=== PATIENT | female | born 1960 | race Two or more races ===

== ENCOUNTER 2024-06-10 21:42 | Inpatient (IN) | payer OTHER, MEDICAID ==
[~2024-06-10] VITALS: Ht 160 cm; Wt 67.5 kg
[~2024-06-10 21:42] MED LIST: ASPI-325 PO; ATOR40TA52 PO; B-CO-6 PO; BACL10TA PO; CARV25TA55 PO; CLOP75TA70 PO; FURO40TA4 PO; GAB100C PO; HYDR100T10 PO; LOSA-535 PO; NIFE90TA75 PO; ZOFR4T PO
--- NOTE | 2024-06-10 22:38 | DVH ---
CHEST RADIOGRAPH Indication: hypoxia Technique: Single frontal view of the chest was obtained Comparison: None FINDINGS: There is cardiomegaly and pulmonary vascular congestion suggesting fluid overload and conge stive heart failure pattern there is a dialysis catheter with tip in the right atrium. IMPRESSION: 1. Dialysis catheter tip is in the right atrium. Patient has cardiomegaly and fluid overload
[2024-06-10 22:40] VITALS: PULSE 76; RESP 16; O2SAT 94
[2024-06-10 22:47] LABS: Basophils # (auto) 0 10 ^3/uL (0-0.2); Basophils % (auto) 0.5 % (0.0-2.0); Eosinophils # (auto) 0 10 ^3/uL (0-0.8); Eosinophils % (auto) 1.6 % (0.0-7.0); Hematocrit 32.7 % (36.0-46.0); Hemoglobin 10.7 g/dL (12.2-16.2); Lymphocytes # (auto) 0.6 10 ^3/uL (0.4-5.4); Lymphocytes % (auto) 24.9 % (10.0-50.0); Mean Corpuscular Hemoglobin 29.6 pg (28.0-32.0); Mean Corpuscular Hgb Conc. 32.8 g/dL (32.0-36.0); Mean Corpuscular Volume 90.3 fL (80.0-100.0); Monocytes # (auto) 0.2 10 ^3/uL (0-1.3); Monocytes % (auto) 7.8 % (0.0-12.0); Neutrophils # (auto) 1.5 10 ^3/uL (1.6-8.6); Neutrophils % (auto) 65.2 % (37.0-80.0); Nucleated Red Blood Cells % 0.2 %; Platelet Count (auto) 115 10^3/uL (140-450); Red Blood Cells 3.62 10^6/uL (4.0-5.20); Red Cell Distribution Width 16.4 % (11.8-14.3); White Blood Cell 2.2 10^3/uL (4.4-10.8)
--- NOTE | 2024-06-10 22:49 | DVH ---
EXAM: CT THORACIC SPINE WO CONTRAS HISTORY: pain COMPARISON: None CTDIvol mGy, DLP mGy*cm. TECHNIQUE: Multiple axial CT images of the spine were obtained using bone algorithm. Axial and coron al reformatting was done. Bone and soft tissue windows were reviewed. FINDINGS: The alignment of the thoracic spine is within normal limits. Bones appear osteopenic. No evidence of fracture in the thoracic spine. Mild degenerative disc disease without evidence of significant disc-osteophyte, spinal canal or neura l foraminal stenosis at any of the levels in the thoracic spine. Incidentally noted are ofkaa-gz-[id number]-sized bilateral pleural effusions tracking to the lung apice s and evidence of mild pulmonary edema. IMPRESSION: No evidence of fracture in the thoracic spine.
[2024-06-10] MEDS: ONDANSETRON HCL 4 MG/2 ML VIAL IV ONE (22:51)
[2024-06-10] MEDS: hydrALAZINE HCL 20 MG/ML VL IV ONE (22:51)
[2024-06-10] MEDS: MORPHINE SULFATE 4 MG/ML SYR/VIAL IV ONE (22:51)
--- NOTE | 2024-06-10 22:53 | DVH ---
EXAM: CT HEAD WITHOUT CONTRAST INDICATION: aloc TECHNIQUE: CT of the head without intravenous contrast. Radiation Dose : 1. Head: CT Dose: CTDI volume is 52.9 mGy. Dose-length product is 3950.78 mGy*cm The dose indicators for CT are the volume Computed Tomography (CT) Dose Index (CTDIvol) and the Dose Length Product (DLP), and are measured in units of mGy and mGy-cm, respectively. These indicators are not patient dose, but values generated from the CT scanner acquisition factors. The report includes radiation exposure data for exposures received during this examination. COMPARISON: None FINDINGS: There is a mild generalized cortical atrophy and there is evidence for stroke involving the posterior left frontal lobe May also involve the left sylvian fissure. In the left anterior watershed Patient has hyperostosis frontalis internus which is common finding in adult women. Paranasal sinuses are generally clear mastoid air cells are unremarkable calvarium is intact. Hippocampal structures a re symmetric there are calcifications in the vertebral arteries bilaterally. Midline structures are g enerally unremarkable. Including the pituitary. Follow-up MRI examination is suggested IMPRESSION: 1. Subacute stroke involving the left frontal lobe white matter which also may involve the left tempo ral lobe as well can not rule out acute features. The emergency room and Dr. Ankita Fagan or told the se findings at 10:48 p.m. On June 10 2024
[2024-06-10] MEDS: ALBUTEROL SULF 2.5 MG/0.5ML(0.5%) NEB SOLN NEB ONE (22:59)
[2024-06-10] MEDS: IPRATROPIUM BROM 0.5 MG/2.5ML INH SOL NEB ONE (22:59)
[2024-06-10 23:03] LABS: Alanine Aminotransferase 11 U/L (7-40); Albumin 4.4 g/dL (3.2-4.8); Anion Gap 13 (5-15); Aspartate Aminotransferase 23 U/L (13-40); BUN/Creatinine Ratio 5.4 (10.0-20.0); Calcium 10.3 mg/dL (8.7-10.4); Carbon Dioxide 24 mmol/L (20-31); Chloride 99 mmol/L (98-107); Glucose 78 mg/dL (74-106); Potassium 3.8 mmol/L (3.5-5.1); Total Protein 7.2 g/dL (5.7-8.2)
[2024-06-10 23:04] LABS: Alkaline Phosphatase 120 U/L (46-116); Bilirubin, Total 0.4 mg/dL (0.2-1.0); Blood Urea Nitrogen 26 mg/dL (9-23); Sodium 136 mmol/L (136-145)
--- NOTE | 2024-06-10 23:10 | DVH ---
CT LS SPINE WO CONTRAST INDICATION: pain : 63 old Female pain EXAM DATE: 06/10/2024 10:07 PM COMPARISON: None RADIATION DOSE: CTDIvol: 30 mGy, DLP: 980 mGy*cm PROCEDURE: Utilizing the CT scanner, contiguous axial scans were obtained through the lumbar spine. C oronal and sagittal reformatted images were then generated. All CT scans at this medical facility are performed using dose modulation techniques as appropriate t o a performed exam including the following: Automated exposure control was utilized; adjustment of th e MA and/or KV according to patient size; and use of iterative reconstruction technique. Findings/ IMPRESSION: No acute fracture. Grade 1 anterolisthesis at L4-L5 with bilateral pars defects. Moderate to severe e ndplate degenerative changes at L4-L5, T12-L1, and L5-S1. There is severe spinal canal narrowing at L 4-L5. Partially visualized moderate bilateral pleural effusions. Mild diffuse anasarca.
--- NOTE | 2024-06-10 23:20 | ED.PDOC ---
History of Present Illness HPI Comments 63-year-old female brought in by independent living facility care staff for evaluation of back pain. Per care staff, the patient was admitted at [facility] 3 weeks ago for a spinal fracture. The patient herself is currently exhibiting altered mental status, which the care staff states is not her normal baseline. She is oriented x4 at baseline according to staff, who states she was at her baseline mental status 2 hours ago. The patient is able to localize the back pain, which is in the mid to lower thoracic and upper lumbar areas. She is otherwise unable to answer questions in detail, sometimes able to answer yes or no. Care staff stated they did not bring her medical history information. Chief Complaint: Back Pain Time Seen by MD: 21:50 Allergies: Coded Allergies: NO KNOWN ALLERGIES (Unverified , 06/10/24) Mode of Arrival: Wheelchair Past Medical History PAST MEDICAL HISTORY: Unobtainable Past Medical History (Other): End-stage renal disease on dialysis, on home oxygen at night Surgical History (Other): Includes right chest hemodialysis catheter [employer] DIRECTOR History: Unknown Family History Family History: Unobtainable Social History Smoker: Unobtainable Alcohol: Unobtainable Drugs: Unobtainable Lives In: Assisted Care Unable to Obtain due to: Altered Mental Status Physical Exam General Appearance: Mild Distress HEENT: PERRL/EOMI, Other (No facial asymmetry. Moist mucous membranes.) Neck: Full Range of Motion, Non-Tender, Normal Inspection, Supple Respiratory: Decreased Breath Sounds, No Accessory Muscle Use, Respiratory Distress (Mild) Cardiovascular: No JVD, Regular Rate/Rhythm Breast Exam: Deferred Gastrointestinal: Non Tender, Soft Genitalia: Deferred Pelvic: Deferred Rectal: Deferred Extremities: Leg edema, Pedal edema, Swelling (Right greater than left leg and pedal edema) Neurologic: Alert (Does not cooperate with neuro exam. Moves all extremities.) Cerebellar Function: Unable to Test Reflexes: NOT DONE Skin: Dry, Pallor, Warm Lymphatic: NOT DONE Was a procedure done? 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 medical staff (internal medicine resident physician) Indication: Other (intubated, sedated, CVA requiring multiple IV meds) Room prepared for procedure: Yes Corner Former performed hand hygien: Yes Maximal sterile barrier precau: Mask/Eye shield, Sterile gown, Cap, Sterlie gloves, Large sterlie drape Skin Preparation: Chlorhexidine gluconate Skin preparation completely dr: Yes Insertion site: Left, Internal jugular Central line catheter type: [id number] dialysis Number of lumens: 3 Central line exchanged over a: Yes Antiseptic ointment applied to: No Post Assessment: Chest X-Ray, Proper placement Informed consent obtained: No Risks/benefits/alt described: No Notes pt with altered mental status and cva, unable to consent, procedure was emergent Intubation Indication: Altered Mental Status, Airway Protection Prep: Preoxygenation Pretreated with: Sedation, Other (etomidate) Medicated with: Other (rocuronium) Intubation Approach: Orotracheal Intubation size: cm (8) Informed consent obtained: No Risks/benefits/alt described: No Notes pt altered mental status, unable to consent, procedure was emergent Procedure performed by Internal Medicine resident physician. under my direct supervision. EKG EKG : Comments Sinus rhythm, rate 79, normal intervals, left axis deviation, normal QRS, nonspecific T changes. Differential Dx Considerations may include: Pain due to recent fracture, other musculoskeletal pain/muscle spasm, neuropathic pain, CVA, TIA, intracranial mass lesion, infection such as UTI, dementia, electrolyte imbalance, hypoglycemia, uremia, renal failure, drug/alcohol intoxication, hepatic encephalopathy, metabolic encephalopathy, hypertensive encephalopathy, among others X-Ray, Labs, Meds, VS Vital Signs Date Time Temp Pulse Resp B/P (MAP) Pulse Ox O2 Delivery O2 Flow Rate FiO2 06/11/24 01:45 98.2 60 14 170/63 (98) 98 98.2 06/11/24 01:30 98.2 61 17 175/61 (99) 96 98.2 06/11/24 01:11 209/80 06/11/24 00:48 71 223/91 06/11/24 00:44 72 224/94 06/11/24 00:42 224/94 06/11/24 00:10 77 17 215/81 (125) 93 06/10/24 23:54 72 06/10/24 23:44 83 233/91 06/10/24 23:43 233/91 06/10/24 23:42 239/91 06/10/24 23:21 69 25 221/83 06/10/24 23:07 77 17 207/75 (119) 96 06/10/24 23:06 79 06/10/24 22:51 241/82 06/10/24 22:51 11 11 214/82 06/10/24 22:50 24 93 Nasal Cannula* 3 32 06/10/24 22:40 76 16 94 Nasal Cannula* 5 40 06/10/24 22:40 98.2 76 16 241/82 (134) 94 98.2 06/10/24 21:55 88 Room Air* 0 21 06/10/24 21:55 98.3 84 24 216/115 (148) 88 98.3 Lab Test 06/11/24 00:09 06/10/24 23:30 06/10/24 23:02 06/10/24 22:36 Range/Units POC Glucose 79 70-106 mg/dl Troponin I High Sensitivity 18 17 </=34 ng/L Lactic Acid Level 0.7 0.4-2.0 mmol/L Ammonia 22 11-32 umol/L Plasma/Serum Blood Alcohol < 3.0 <10 mg/dL White Blood Count 2.2 L 4.4-10.8 10^3/uL Red Blood Count 3.62 L 4.0-5.20 10^6/uL Hemoglobin 10.7 L 12.2-16.2 g/dL Hematocrit 32.7 L 36.0-46.0 % Mean Corpuscular Volume 90.3 80.0-100.0 fL Mean Corpuscular Hemoglobin 29.6 28.0-32.0 pg Mean Corpuscular Hemoglobin Concent 32.8 32.0-36.0 g/dL Red Cell Distribution Width 16.4 H 11.8-14.3 % Platelet Count 115 L 140-450 10^3/uL Mean Platelet Volume 7.7 6.9-10.8 fL Neutrophils (%) (Auto) 65.2 37.0-80.0 % Lymphocytes (%) (Auto) 24.9 10.0-50.0 % Monocytes (%) (Auto) 7.8 0.0-12.0 % Eosinophils (%) (Auto) 1.6 0.0-7.0 % Basophils (%) (Auto) 0.5 0.0-2.0 % Neutrophils # (Auto) 1.5 L 1.6-8.6 10 ^3/uL Lymphocytes # (Auto) 0.6 0.4-5.4 10 ^3/uL Monocytes # (Auto) 0.2 0-1.3 10 ^3/uL Eosinophils # (Auto) 0 0-0.8 10 ^3/uL Basophils # (Auto) 0 0-0.2 10 ^3/uL Nucleated Red Blood Cells 0.2 % Sodium Level 136 136-145 mmol/L Potassium Level 3.8 3.5-5.1 mmol/L Chloride Level 99 98-107 mmol/L Carbon Dioxide Level 24 20-31 mmol/L Anion Gap 13 5-15 Blood Urea Nitrogen 26 H 9-23 mg/dL Creatinine 4.84 H 0.550-1.02 mg/dL Glomerular Filtration Rate Calc 9 >90 mL/min BUN/Creatinine Ratio 5.4 L 10.0-20.0 Serum Glucose 78 74-106 mg/dL Calcium Level 10.3 8.7-10.4 mg/dL Total Bilirubin 0.4 0.2-1.0 mg/dL Aspartate Amino Transferase (AST) 23 13-40 U/L Alanine Aminotransferase (ALT) 11 7-40 U/L Alkaline Phosphatase 120 H 46-116 U/L B-Type Natriuretic Peptide 1515.73 0-100 pg/mL Total Protein 7.2 5.7-8.2 g/dL Albumin 4.4 3.2-4.8 g/dL Current Medications Medications (Trade) Dose Ordered Sig/Eric Route Start Time Stop Time Status Last Admin Morphine Sulfate 4 mg ONCE ONCE IV 06/10/24 22:00 06/10/24 22:03 DC 06/10/24 22:51 Ondansetron HCl (Zofran) 4 mg ONCE ONCE IV 06/10/24 22:00 06/10/24 22:03 DC 06/10/24 22:51 Albuterol (Ventolin Medneb) 5 mg ONCE ONCE NEB 06/10/24 22:00 06/10/24 22:03 DC 06/10/24 22:59 Ipratropium [place] (Atrovent Medneb) 0.5 mg ONCE ONCE NEB 06/10/24 22:00 06/10/24 22:03 DC 06/10/24 22:59 Hydralazine HCl (Apresoline Injection) 10 mg ONCE ONCE IV 06/10/24 22:00 06/10/24 22:03 DC 06/10/24 22:51 Labetalol HCl (Labetalol HCl) 10 mg ONCE ONCE IV 06/10/24 23:30 06/10/24 23:31 DC 06/10/24 23:44 Aspirin 325 mg ONCE ONCE PO 06/10/24 23:30 06/10/24 23:31 DC 06/11/24 00:19 Nitroglycerin (Nitro-Bid) 1 pkg ONCE ONCE TD 06/10/24 23:30 06/10/24 23:32 DC 06/10/24 23:42 Furosemide (Lasix Injection) 60 mg ONCE ONCE IV 06/10/24 23:30 06/10/24 23:32 DC 06/10/24 23:43 Hydralazine HCl (Apresoline Injection) 20 mg ONCE ONCE IV 06/11/24 00:30 06/11/24 00:31 DC 06/11/24 01:11 Labetalol HCl (Labetalol HCl) 20 mg ONCE ONCE IV 06/11/24 00:30 06/11/24 00:31 DC 06/11/24 00:48 PROCEDURE(s): HWOCT - HEAD WITHOUT CONTRAST REASON: aloc ORDER NUMBER(s): [id number], ACCESSION NUMBER(s): [id number] EXAM: CT HEAD WITHOUT CONTRAST INDICATION: aloc TECHNIQUE: CT of the head without intravenous contrast. Radiation Dose : 1. Head: CT Dose: CTDI volume is 52.9 mGy. Dose-length product is 3950.78 mGy*cm The dose indicators for CT are the volume Computed Tomography (CT) Dose Index (CTDIvol) and the Dose Length Product (DLP), and are measured in units of mGy and mGy-cm, respectively. These indicators are not patient dose, but values generated from the CT scanner acquisition factors. The report includes radiation exposure data for exposures received during this examination. COMPARISON: None FINDINGS: There is a mild generalized cortical atrophy and there is evidence for stroke involving the posterior left frontal lobe May also involve the left sylvian fissure. In the left anterior watershed Patient has hyperostosis frontalis internus which is common finding in adult women. Paranasal sinuses are generally clear mastoid air cells are unremarkable calvarium is intact. Hippocampal structures are symmetric there are calcifications in the vertebral arteries bilaterally. Midline structures are generally unremarkable. Including the pituitary. Follow-up MRI examination is suggested IMPRESSION: 1. Subacute stroke involving the left frontal lobe white matter which also may involve the left temporal lobe as well can not rule out acute features. The emergency room and Dr. Ankita Fagan or told these findings at 10:48 p.m. On June 10 2024 EDURE(s): [place] - ANGIO HEAD/Neck REASON: L frontal CVA ORDER NUMBER(s): [id number], ACCESSION NUMBER(s): [id number] CT ANGIO HEAD/Neck INDICATION: L frontal CVA EXAM DATE: 06/10/2024 11:58 PM COMPARISON: None RADIATION DOSE: CTDIvol: 23.29 mGy, DLP: 732.49 mGy*cm PROCEDURE: CT angiogram images were obtained of the head and neck. Coronal and sagittal reformatted images were created as well as 3D and/or MIP reconstruction s. All CT scans at this medical facility are performed using dose modulation techniques as appropriate to a performed exam including the following: Automated exposure control was utilized; adjustment of the MA and/or KV according to patient size; and use of iterative reconstruction technique. FINDINGS: Head: On the CT angiographic images, the internal carotid arteries are normal in caliber from the skull base to their bifurcations. The anterior and middle cerebral arteries and their branches appear normal. The anterior communicating artery appears normal. The bilateral posterior communicating arteries are normal. The vertebral arteries are codominant. The V4 segment of the bilateral vertebral arteries appear to demonstrate intraluminal narrowing measuring up to approximately 50 % due to calcified and noncalcified plaques. The basilar, superior cerebellar, and posterior cerebral arteries are normal in caliber. No aneurysm, arteriovenous malformation, or stenosis is visible. Neck: The common carotid, internal carotid, external carotid, and vertebral arteries are normal in caliber. The vertebral arteries are codominant. The visualized intracranial arteries are normal. There is no evidence of contrast extravasation, filling defects, stenosis, or dissection. The pharynx and airway are normal. The thyroid, submandibular, and parotid glands appear normal. No lymphadenopathy is seen. The visualized intracranial structures are unremarkable. Partially visualized biapical lungs demonstrates small left-sided pleural effusion. IMPRESSION: No significant vascular stenosis involving the head / neck. Moderate occlusion of the bilateral V4 segments vertebral arteries due to calcified and noncalcified plaques. EDURE(s): TS2CT - THORACIC SPINE WO CONTRAS REASON: pain ORDER NUMBER(s): [id number], ACCESSION NUMBER(s): [id number] EXAM: CT THORACIC SPINE WO CONTRAS HISTORY: pain COMPARISON: None CTDIvol mGy, DLP mGy*cm. TECHNIQUE: Multiple axial CT images of the spine were obtained using bone algorithm. Axial and coronal reformatting was done. Bone and soft tissue windows were reviewed. FINDINGS: The alignment of the thoracic spine is within normal limits. Bones appear osteopenic. No evidence of fracture in the thoracic spine. Mild degenerative disc disease without evidence of significant disc-osteophyte, spinal canal or neural foraminal stenosis at any of the levels in the thoracic spine. Incidentally noted are gsuxt-hp-epgppovf-sized bilateral pleural effusions tracking to the lung apices and evidence of mild pulmonary edema. IMPRESSION: No evidence of fracture in the thoracic spine. EDURE(s): LS2CT - LS SPINE WO CONTRAST REASON: pain ORDER NUMBER(s): [id number], ACCESSION NUMBER(s): [id number] CT LS SPINE WO CONTRAST INDICATION: pain : 63 old Female pain EXAM DATE: 06/10/2024 10:07 PM COMPARISON: None RADIATION DOSE: CTDIvol: 30 mGy, DLP: 980 mGy*cm PROCEDURE: Utilizing the CT scanner, contiguous axial scans were obtained through the lumbar spine. Coronal and sagittal reformatted images were then generated. All CT scans at this medical facility are performed using dose modulation techniques as appropriate to a performed exam including the following: Automated exposure control was utilized; adjustment of the MA and/or KV according to patient size; and use of iterative reconstruction technique. Findings/ IMPRESSION: No acute fracture. Grade 1 anterolisthesis at L4-L5 with bilateral pars defects. Moderate to severe endplate degenerative changes at L4-L5, T12-L1, and L5-S1. There is severe spinal canal narrowing at L4-L5. Partially visualized moderate bilateral pleural effusions. Mild diffuse gurpreet sarca. EDURE(s): CXRP - CHEST PORTABLE REASON: hypoxia ORDER NUMBER(s): [id number], ACCESSION NUMBER(s): [id number] CHEST RADIOGRAPH Indication: hypoxia Technique: Single frontal view of the chest was obtained Comparison: None FINDINGS: There is cardiomegaly and pulmonary vascular congestion suggesting fluid overload and congestive heart failure pattern there is a dialysis catheter with tip in the right atrium. IMPRESSION: 1. Dialysis catheter tip is in the right atrium. Patient has cardiomegaly and fluid overload X-Ray, Labs, Meds, VS Comment 63-year-old female with a history of spine fracture, end-stage renal disease and on home oxygen presenting with back pain and altered mental status Vitals remarkable for BP 216/115, oxygen saturation 88% on room air, respiratory rate 24 Exam remarkable for altered mental status. Respiratory distress, diminished breath sounds. Patient moving all extremities. Midline tenderness in the mid and lower thoracic and upper lumbar areas. Rhythm strip independently interpreted by me: Sinus rhythm, rate 79, no ectopy. CT head IMPRESSION: 1. Subacute stroke involving the left frontal lobe white matter which also may involve the left temporal lobe as well can not rule out acute features. The emergency room and Dr. Ankita Fagan or told these findings at 10:48 p.m. On June [address] angio head and neck IMPRESSION: No significant vascular stenosis involving the head / neck. Moderate occlusion of the bilateral V4 segments vertebral arteries due to calcified and noncalcified plaques. T-spine IMPRESSION: No evidence of fracture in the thoracic spine. CT L-spine IMPRESSION: No acute fracture. Grade 1 anterolisthesis at L4-L5 with bilateral pars defects. Moderate to severe endplate degenerative changes at L4-L5, T12-L1, and L5-S1. There is severe spinal canal narrowing at L4-L5. Partially visualized moderate bilateral pleural effusions. Mild diffuse anasarca. Chest x-ray IMPRESSION: 1. Dialysis catheter tip is in the right atrium. Patient has cardiomegaly and fluid overload CBC remarkable for WBC 2.2, hemoglobin 10.7, hematocrit 32.7, platelets 115, CMP, BNP and troponin Patient treated with the following in the ED: Albuterol 5 mg, Atrovent 0.5 mg nebulized, morphine 4 mg IV, Zofran 4 mg IV, h ydralazine 10 mg IV, aspirin 325 mg p.o., labetalol 10 mg IV, Nitro-Bid 1 in to chest wall, Lasix 60 mg IV Code stroke was initiated upon my receipt of the CT findings from the radiologist. I discussed the case with the on-call stroke neurologist, who evaluated the patient via video consultation. Recommendations: Patient is not a thrombolytic candidate. CTA head and neck were recommended. If no occlusion, p.o. aspirin to be administered, and patient to be admitted for brain MRI and inpatient Neurology re-evaluation. On re-evaluation, patient is sleeping but arousable, BP is 214/82, so IV labetalol was ordered. Plan is to admit the patient for brain MRI, blood pressure control and inpatient Neurology evaluation. Patient will also require hemodialysis. Case discussed with FASHION [employer]YLING INTERN Jose, who evaluated the patient in the ED. He requested the patient be intubated for airway protection, as her mental status was declining and she was appearing more lethargic. He will admit the patient. Patient was intubated by internal medicine resident under my direct supervision. Please see procedure note for details. A left IJ central venous catheter was inserted by internal medicine resident under my direct supervision. Please see procedure note for details. Time of 1ST Reevaluation: 23:24 Reevaluation 1ST: Improved Time of 2ND Reevaluation: 02:00 Reevaluation 2ND: Worsened Patient Education/Counseling: Pt Unresponsive Family Education/Counseling: No Family Present Departure 1 Departure Time of Disposition: 23:23 Impression: Primary Impression: CVA (cerebral vascular accident) Qualified Codes: I63.9 - Cerebral infarction, unspecified Additional Impressions: Back pain Qualified Codes: M54.9 - Dorsalgia, unspecified Fluid overload Qualified Codes: E87.70 - Fluid overload, unspecified Disposition: 09 ADMITTED INPATIENT Admit to: ICU Condition: Critical Critical Care Note Critical Care Time?: Yes (45 min-critical care time only) Critical care comment: Critical care time including multiple bedside re-evaluations, review of lab and imaging studies, and discussion of the case with the admitting and consulting providers. Patient is high risk for hemodynamic and/or neurologic decompensation. Stability Stability form required: No Heart Score Heart Score: Heart Score Response (Comments) Value History N/A 0 EKG N/A 0 Age N/A 0 Risk Factors N/A 0 Troponin N/A 0 Total 0 CHRISTINA SHEEHAN MD Jun 10, 2024 23:20
--- NOTE | 2024-06-10 23:22 | BSKYNEURO ---
[place] [facility] Note # Demographics Consult Type: Acute Stroke Level 1 (0-4.5 hrs) Patient Location: Emergency Room First Name: LILI Last Name: HARPAL Date of : 1960 Age: 63 Gender: Female Facility: [facility] Time of Initial Page (): 06/10/2024 22:57 Time of Return Call (): 06/10/2024 22:57 # HPI History: Spine fracture three weeks ago. WHile in ED noted to be confused and having right leg weakness. Not clear last known well time. Last Known Normal: unclear # Scores Time of exam and NIHSS (): 06/10/2024 23:08 Level of Consciousness 1a: [1] = Not alert; but arousable by minor stim LOC Questions 1b: [1] = Answers one correctly LOC Commands 1c: [1] = Performs one correctly Best Gaze 2: [0] = Normal Visual 3: [0] = No visual loss Facial Palsy 4: [0] = Normal symmetrical movements Motor Arm Left 5a: [0] = No drift Motor Arm Right 5b: [0] = No drift Motor Leg Left 6a: [2] = Some effort against gravity Motor Leg Right 6b: [3] = No effort against gravity Limb Ataxia 7: [0] = Absent Sensory 8: [0] = Normal Best Language 9: [2] = Severe aphasia Dysarthria 10: [0] = Normal Extinction and Inattention 11: [0] = No abnormality NIHSS Total: 10 # Exam Vitals: vital signs reviewed # Data Head CT: - per radiologist read - subacute ischemic stroke - no bleed - preliminarily reviewed by me, please refer to radiology read for official reading left frontal stroke. # Assessment Impression: - Ischemic Stroke (Subacute) The imaging features of stroke are not suggetsive of stroke within last 4.5 hours. # Plan Thrombolytic/Intervention: Possible IA candidate Thrombolytic Exclusion: > 4.5 hours Possible IA Candidate: - CTA pending Target Blood Pressure: - SBP < 220 sbp< 180 if cta negative Labs: - hemoglobin A1c - lipid panel Imaging: (urgency: STAT): - CT Angiogram Head and CT Angiogram Neck AND call back with results if abnormal Diagnostic Test: - echo with bubble study Therapy/Evaluation: - NPO until swallow evaluation - PT/OT evaluation - speech/swallow consultation Medication: - start statin with goal of LDL < 70 asa 325 today Other: - If patient has any neurological deterioration please call me back immediately - I have discussed my recommendations with the referring provider - telemetry monitoring - LDL < 70 Disposition: admit # Logistics Attestation of consult completion: The patient is located at: [facility]. Facility staff participated in the visit. I performed this telemedicine visit from my offsite office utilizing interactive 2 way audio and visual telecommunication technology. Total time spent in telemedicine encounter: I spent 21 minutes reviewing clinical data and/or imaging, obtaining history, examining the patient, communicating with the onsite care team, and in preparation of this report. Critical Care time: 21 minutes of this encounter were critical care time. Due to a high probability of clinically significant, life-threatening neurologic deterioration, the patient required my highest level of preparedness to intervene emergently. I spent this critical care time managing the patient in conjunction with on-site providers who requested my consultation. In addition to the above, this critical care time included recommendation and review of studies, including imaging; arranging an urgent treatment and management plan with on-site providers; evaluation of patient's response to treatment; and documentation. This critical care time was performed to assess and manage the high probability of imminent, life-threatening deterioration that could result in neurologic catastrophe. # Demographics First Name: LILI Last Name: HARPAL Facility: [facility] Electronically signed at 06/10/2024 23:22 ([place] Time) by Avinash Romo MD Yes RODRIGO ROMO MD Jun 10, 2024 23:22
[2024-06-10] MEDS: ASPirin 325 MG TAB PO ONE (23:42)
[2024-06-10] MEDS: NITROGLYCERIN 2% OINT 1GM PKG TD ONE (23:42)
[2024-06-10] MEDS: FUROSEMIDE 100 MG/10ML VIAL IV ONE (23:43)
[2024-06-10] MEDS: LABETALOL HCL 20 MG/4 ML VL IV ONE (23:44)
[2024-06-11] VITALS (82 sets, daily range): BP systolic 132–202; BP diastolic 47–178; PULSE 58–95; RESP 7–22; TEMP 97.2–100.4; O2SAT 92–100
[2024-06-11] MEDS: IOHEXOL 350 MG/ML 100ML IJ ONE (00:22)
--- NOTE | 2024-06-11 00:47 | DVH ---
CT ANGIO HEAD/Neck INDICATION: L frontal CVA EXAM DATE: 06/10/2024 11:58 PM COMPARISON: None RADIATION DOSE: CTDIvol: 23.29 mGy, DLP: 732.49 mGy*cm PROCEDURE: CT angiogram images were obtained of the head and neck. Coronal and sagittal reformatted i mages were created as well as 3D and/or MIP reconstructions. All CT scans at this medical facility are performed using dose modulation techniques as appropriate t o a performed exam including the following: Automated exposure control was utilized; adjustment of th e MA and/or KV according to patient size; and use of iterative reconstruction technique. FINDINGS: Head: On the CT angiographic images, the internal carotid arteries are normal in caliber from the skull bas e to their bifurcations. The anterior and middle cerebral arteries and their branches appear normal. The anterior communicating artery appears normal. The bilateral posterior communicating arteries are normal. The vertebral arteries are codominant. The V4 segment of the bilateral vertebral arteries katt ear to demonstrate intraluminal narrowing measuring up to approximately 50 % due to calcified and non calcified plaques. The basilar, superior cerebellar, and posterior cerebral arteries are normal in c aliber. No aneurysm, arteriovenous malformation, or stenosis is visible. Neck: The common carotid, internal carotid, external carotid, and vertebral arteries are normal in caliber. The vertebral arteries are codominant. The visualized intracranial arteries are normal. There is no evidence of contrast extravasation, filling defects, stenosis, or dissection. The pharynx and airway are normal. The thyroid, submandibular, and parotid glands appear normal. No l ymphadenopathy is seen. The visualized intracranial structures are unremarkable. Partially visualized biapical lungs demonstrates small left-sided pleural effusion. IMPRESSION: No significant vascular stenosis involving the head / neck. Moderate occlusion of the bilateral V4 se gments vertebral arteries due to calcified and noncalcified plaques.
[2024-06-11] MEDS: LABETALOL HCL 20 MG/4 ML VL IV ONE (00:48)
[2024-06-11] MEDS: hydrALAZINE HCL 20 MG/ML VL IV ONE (01:11)
[2024-06-11] MEDS: ETOMIDATE (2MG/ML) 20ML VIAL IV ONE ×2 (01:57→01:59)
[2024-06-11] MEDS: ROCURONIUM 10MG/ML 10ML VIAL IV ONE ×2 (01:57→01:59)
[2024-06-11] MEDS ORDERED: fentaNYL Drip 2500mCg/250mlNS 250 ML IV SCH (02:00)
[2024-06-11] MEDS ORDERED: MORPHINE SULFATE INJ 2 MG/ml SYRG IV PRN (02:00)
[2024-06-11] MEDS ORDERED: LABETALOL HCL 20 MG/4 ML VL IV PRN (02:00)
[2024-06-11] MEDS ORDERED: MIDAZOLAM DRIP 50 mg/50mL 50 ML IV SCH (02:00)
[2024-06-11] MEDS ORDERED: NITROGLYCERIN 0.4 MG SL TAB SL PRN (02:00)
[2024-06-11] MEDS: MIDAZOLAM DRIP 50 mg/50mL 50 ML IV SCH (02:10)
--- NOTE | 2024-06-11 02:27 | DVHHP2 ---
TRINA MOULTON ZIPPER SETTER 06/11/24 0227: History of Present Illness Reason for Visit: ALOC History of Present Illness Information in this HPI is limited due to the patient's critical condition. Acquired from ER physician and EHR. 63-year-old female with past medical history of ESRD on HD, hypertension, falls, T12 compression fracture was sent in from an assisted living facility with initial complaints of back pain. On arrival to the emergency department patient was found to be altered. Patient was not following commands. CT of the head was ordered per the emergency departm ent which demonstrated subacute frontal lobes stroke. CXR demonstrated fluid overload. During my evaluation at ER bed 17 patient was not arousable and her tongue was swollen and kept rolling back into her throat. After discussing these findings with the ER physician, the decision was made to intubate the patient for airway protection. Patient admitted for further evaluation and treatment. Cardiovascular: CHF, HTN Renal/: Chronic renal failure Past Social History Unable to complete due to critical condition Review of Systems Review of Systems Unable to complete due to critical condition Allergies: Coded Allergies: NO KNOWN ALLERGIES (Unverified , 06/10/24) Medications Current Medications Medications Dose Ordered Sig/Eric Route Start Time Stop Time Status Last Admin Dose Admin Ondansetron HCl 4 mg Q4HP PRN IV 06/11/24 02:00 Nitroglycerin 0.4 mg Q5MINP PRN SL 06/11/24 02:00 Morphine Sulfate 2 mg Q30M PRN IV 06/11/24 02:00 Labetalol HCl 10 mg Q4HPRN PRN IV 06/11/24 02:00 Aspirin 81 mg DAILY PO 06/11/24 10:00 Atorvastatin Calcium 40 mg HS PO 06/11/24 22:00 Albuterol 2.5 mg Q4HPRN PRN NEB 06/11/24 02:00 Ipratropium [place] 0.5 mg Q4HPRN PRN NEB 06/11/24 02:00 Midazolam HCl 50 ml @ 1 mls/hr Q24H IV 06/11/24 02:15 Fentanyl Citrate 250 ml @ 2.5 mls/hr Q24H IV 06/11/24 02:15 Exam Vital Signs Vital Signs Date Time Temp Pulse Resp B/P (MAP) Pulse Ox O2 Delivery O2 Flow Rate FiO2 06/11/24 02:01 100 Mechanical Ventilator 06/11/24 02:01 80 18 201/90 (127) 100 06/11/24 01:30 98.2 98.2 06/10/24 22:50 3 General Appearance: severe distress, Other (Altered, not arousable,) HEENT: Other (Tongue noted to be swollen rolling into the back of her throat) Respiratory: Other (Intubated on mechanical ventilator) Cardiovascular: Regular rate, Normal S1, Normal S2 Abdominal: Normal bowel sounds, Soft, No tenderness Extremities: Other (BLE pitting edema 3+) Skin: No rashes Neuro: Other (Altered non arousable) Psych/Mental Status: Other (Unable to assess) Labs/Xrays Labs Test 06/11/24 00:09 06/10/24 23:30 06/10/24 23:02 06/10/24 22:36 Range/Units POC Glucose 79 70-106 mg/dl Troponin I High Sensitivity 18 </=34 ng/L Lactic Acid Level 0.7 0.4-2.0 mmol/L Ammonia 22 11-32 umol/L Plasma/Serum Blood Alcohol < 3.0 <10 mg/dL White Blood Count 2.2 L 4.4-10.8 10^3/uL Red Blood Count 3.62 L 4.0-5.20 10^6/uL Hemoglobin 10.7 L 12.2-16.2 g/dL Hematocrit 32.7 L 36.0-46.0 % Mean Corpuscular Volume 90.3 80.0-100.0 fL Mean Corpuscular Hemoglobin 29.6 28.0-32.0 pg Mean Corpuscular Hemoglobin Concent 32.8 32.0-36.0 g/dL Red Cell Distribution Width 16.4 H 11.8-14.3 % Platelet Count 115 L 140-450 10^3/uL Mean Platelet Volume 7.7 6.9-10.8 fL Neutrophils (%) (Auto) 65.2 37.0-80.0 % Lymphocytes (%) (Auto) 24.9 10.0-50.0 % Monocytes (%) (Auto) 7.8 0.0-12.0 % Eosinophils (%) (Auto) 1.6 0.0-7.0 % Basophils (%) (Auto) 0.5 0.0-2.0 % Neutrophils # (Auto) 1.5 L 1.6-8.6 10 ^3/uL Lymphocytes # (Auto) 0.6 0.4-5.4 10 ^3/uL Monocytes # (Auto) 0.2 0-1.3 10 ^3/uL Eosinophils # (Auto) 0 0-0.8 10 ^3/uL Basophils # (Auto) 0 0-0.2 10 ^3/uL Nucleated Red Blood Cells 0.2 % Sodium Level 136 136-145 mmol/L Potassium Level 3.8 3.5-5.1 mmol/L Chloride Level 99 98-107 mmol/L Carbon Dioxide Level 24 20-31 mmol/L Anion Gap 13 5-15 Blood Urea Nitrogen 26 H 9-23 mg/dL Creatinine 4.84 H 0.550-1.02 mg/dL Glomerular Filtration Rate Calc 9 >90 mL/min BUN/Creatinine Ratio 5.4 L 10.0-20.0 Serum Glucose 78 74-106 mg/dL Calcium Level 10.3 8.7-10.4 mg/dL Total Bilirubin 0.4 0.2-1.0 mg/dL Aspartate Amino Transferase (AST) 23 13-40 U/L Alanine Aminotransferase (ALT) 11 7-40 U/L Alkaline Phosphatase 120 H 46-116 U/L B-Type Natriuretic Peptide 1515.73 0-100 pg/mL Total Protein 7.2 5.7-8.2 g/dL Albumin 4.4 3.2-4.8 g/dL Assessment/Plan Assessment/Plan Acute CVA Acute encephalopathy S/P intubation on mechanical ventilator ESRD on HD Fluid overload Hypertensive emergency Hx T12 compression fracture Plan Admit ICU Neurology consult. MRI brain. Aspirin, statin. Lipid panel, A1c. Will allow for permissive hypertension. Cardiology consult. Echocardiogram. As needed antihypertensive for optimal BP management Nephrology consult for hemodialysis. Will monitor BMP. Correct electrolytes as needed. Pulmonology consult for vent management. Bronchodilators. 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 01:54 Maintain Bed Rest [facility] 06/11/24 In Process 01:54 Npo (Nothing By DIET 06/11/24 Transmitted Mouth) Diet Breakfast Oxygen By Face Mask RT 06/11/24 Transmitted 01:54 Notify Of Changes [facility] 06/11/24 In Process From Base 01:54 Advance Directive [facility] 06/11/24 In Process 01:54 Echo 2d Mode Cardiac US 06/11/24 Logged DOP 01:54 Basic Metabolic Panel LAB 06/11/24 Logged 05:00 Basic Metabolic Panel LAB 06/12/24 Verified 05:00 Basic Metabolic Panel LAB 06/13/24 Verified 05:00 Basic Metabolic Panel LAB 06/14/24 Verified 05:00 Basic Metabolic Panel LAB 06/15/24 Verified 05:00 Basic Metabolic Panel LAB 06/16/24 Verified 05:00 Complete Blood Count LAB 06/11/24 Logged 05:00 Complete Blood Count LAB 06/12/24 Verified 05:00 Complete Blood Count LAB 06/13/24 Verified 05:00 Complete Blood Count LAB 06/14/24 Verified 05:00 Complete Blood Count LAB 06/15/24 Verified 05:00 Patient Condition ORDERS 06/11/24 Transmitted 01:54 Allergies ROSSI 06/11/24 In Process 01:54 Ondansetron Hcl PHA 06/11/24 In Process (Zofran) 02:00 Sequential [facility] 06/11/24 In Process Compression Device Nitroglycerin PHA 06/11/24 In Process Sublingual (Ntrostat 02:00 Morphine Sulfate PHA 06/11/24 In Process Injection 02:00 Stat Ekg For Chest [facility] 06/11/24 In Process Pain 01:54 Notify Of Changes [facility] 06/11/24 In Process From Base 01:54 Principal Technologist For ROSSI 06/11/24 In Process 24 Hours 01:54 Emergency Dysrhythmia [facility] 06/11/24 In Process Protocol 01:54 Rhythm Strips Once [facility] 06/11/24 In Process Every Shift 01:54 Oxygen By Nasal RT 06/11/24 Transmitted Cannula 01:54 *Dr. Shanell Parekh CONS 06/11/24 Transmitted Barb 01:54 Brain Head Wo Contrast MRI 06/11/24 Logged 01:54 * Neurology Consult CONS 06/11/24 Transmitted 01:54 Labetalol Hcl PHA 06/11/24 In Process (Labetalol Hcl) 02:00 *Consult CONS 06/11/24 Transmitted / 01:54 Aspirin Tablet PHA 06/11/24 In Process 10:00 Atorvastatin (Lipitor) PHA 06/11/24 In Process 22:00 Albuterol Medneb PHA 06/11/24 In Process (Ventolin Medneb) 02:00 Ipratropium Medneb PHA 06/11/24 In Process (Atrovent Medneb) 02:00 Date of Service: Jun 11, 2024 Billing Provider: SHAQUILLE ROBBINS CDS Common Visit Codes: NOT BILLABLE BENJA ROBBINS MD 06/11/24 1240: Review of Systems Allergies: Coded Allergies: NO KNOWN ALLERGIES (Unverified , 06/10/24) Additional Comments Additional Comments Additional Comments To be noted patient was currently intubated and sedated. Most of the history obtained from the computer records has been as ER physician note. Also records from [facility] has been reviewed where patient was hospitalized for lumbar diskitis about three weeks ago was sent to custodial facility with the IV antibiotics vancomycin has been Infectious Disease recommendation from [facility]. There was no family member at bedside. 63-year-old female with a known history of hypertension, dyslipidemia, coronary artery disease, anxiety disorder, recent mechanical fall found to have acute small T12 compression fracture, L3-4 lumbar diskitis presented to the hospital with right-sided weakness altered mental status eventually intubated in the ER for airway protection. Patient was found to have acute/subacute left frontal and temporal infarct currently MRI brain is pending. 1. Acute hypoxic respiratory failure requiring intubation with mechanical ventilation secondary to metabolic encephalopathy 2. Metabolic encephalopathy secondary to acute CVA 3. Acute/subacute CVA with the left frontal and temporal infarct 4. Hypertensive emergency with the end-organ involvement 5. End-stage renal disease on hemodialysis 6. Coronary artery disease 7. L3-4 lumbar diskitis/osteomyelitis, resume IV vancomycin and consult infectious disease specialist -MRI brain noncontrast, neurology consultation -aspirin, Plavix and statin -hemodialysis per Nephrology -patient was remains critical prognosis remain guarded -Pulmonary consultation, plan of care discussed with the bedside RN. TRINA MOULTON NP Jun 11, 2024 02:27 BENJA ROBBINS MD Jun 11, 2024 12:40
[2024-06-11] MEDS: MIDAZOLAM DRIP 50 mg/50mL 50 ML IV ONE (02:34)
[2024-06-11] MEDS: fentaNYL Drip 2500mCg/250mlNS 250 ML IV SCH (03:27)
[2024-06-11 03:46] LABS: Urine Bacteria None Seen /hpf (None Seen)
[2024-06-11 04:00] LABS: Urine Blood Negative /uL (Negative); Urine Clarity Turbid (Clear); Urine Color Light-Yellow (Yellow); Urine Protein, UAD 3+ (Negative); Urine Specific Gravity 1.008 (1.001-1.035); Urine Squamous Epithelial Cell MOD /hpf (<5); Urine Urobilinogen Normal (Negative); Urine WBC 41 /HPF (0-5)
[2024-06-11 04:14] LABS: Base Excess 3.5 mmol/L (-2.0-3.0)
[2024-06-11 04:15] LABS: Opiate Scree,Urine Neg (NEGATIVE)
[2024-06-11 04:16] LABS: Amphetamine Screen, Urine Neg (NEGATIVE); Barbiturate Scree,Urine Neg (NEGATIVE); Benzodiazephine Screen, Urine Neg (NEGATIVE); Cannabinoid Screen, Urine Neg (NEGATIVE); Cocaine Screen, Urine Neg (NEGATIVE); Phencyclidine Screen, Urine Neg (NEGATIVE)
[2024-06-11] MEDS ORDERED: DEXTROSE (50%) 50ML SYRG IV PRN (04:45)
[2024-06-11 05:43] LABS: Hemoglobin 10.5 g/dL (12.2-16.2)
[2024-06-11 05:44] LABS: Potassium 3.5 mmol/L (3.5-5.1); Sodium 136 mmol/L (136-145)
[2024-06-11 05:45] LABS: Anion Gap 11 (5-15); Calcium 10.2 mg/dL (8.7-10.4); Carbon Dioxide 27 mmol/L (20-31)
[2024-06-11 05:46] LABS: Hematocrit 31.7 % (36.0-46.0); Mean Corpuscular Hemoglobin 29.4 pg (28.0-32.0); Mean Corpuscular Volume 89.3 fL (80.0-100.0); Platelet Count (auto) 114 10^3/uL (140-450); Red Blood Cells 3.55 10^6/uL (4.0-5.20); Red Cell Distribution Width 16.1 % (11.8-14.3)
[2024-06-11 05:50] LABS: Triglycerides 63 mg/dL (< 150)
[2024-06-11 05:51] LABS: LDL Cholesterol 47 mg/dL (< 100)
--- NOTE | 2024-06-11 05:51 | DVH ---
CHEST RADIOGRAPH Indication: Pots intubation and central line Technique: Single frontal view of the chest was obtained COMPARISON: XY CHEST PORTABLE on DOS: 06/10/24 FINDINGS: Lines and Tubes: Endotracheal tube, enteric catheter, right and left central venous catheter is in sa tisfactory position Lungs: Congestion Pleura: No effusion. No pneumothorax. Cardiomediastinal contours: Cardiomegaly Bones: Unremarkable IMPRESSION: Lines and tubes in satisfactory position. No significant interval change.
[2024-06-11 05:52] LABS: Cholesterol 106 mg/dL (< 200)
[2024-06-11] MEDS: ACCU-CHEK COMFORT CURVE STRIP VI SCH (05:53)
[2024-06-11] MEDS: InsuLIN REG 1unit/0.01ml Soln (100units/ml) SC SCH (05:53)
[2024-06-11 05:55] LABS: White Blood Cell 1.7 10^3/uL (4.4-10.8)
[2024-06-11 05:57] LABS: Basophils % (manual) 0 (0.0-2.0); Blast Cells 0; Metamyelocytes % 0; Myelocytes % 0; Promyelocytes % 0; Reactive Lymphocytes 0
--- NOTE | 2024-06-11 05:57 | ECG ---
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
[2024-06-11 06:01] LABS: Blood Urea Nitrogen 31 mg/dL (9-23); Chloride 98 mmol/L (98-107); Glucose 71 mg/dL (74-106); HDL Cholesterol 40 mg/dL (40-59)
[2024-06-11 06:55] LABS: Band Neutrophils % (manual) 2; Eosinophils % (manual) 3 (0-7); Large Platelets FEW; Lymphocytes % (manual) 21 (10.0-50.0); Monocytes % (manual) 9 (0-12); Platelet Estimate Decreased
[2024-06-11] MEDS: DEXTROSE 50% SYRINGE 50 ML IV ONE (07:40)
[2024-06-11] MEDS: HEPARIN SODIUM (PORCINE) 5000 UNITS/ML 1ML VIAL SC SCH (09:38)
[2024-06-11] MEDS: ASPirin 81 mg TAB PO SCH (09:58)
[2024-06-11] MEDS: PANTOPRAZOLE 40 MG/10 ML VIAL INJ IV SCH (09:58)
--- NOTE | 2024-06-11 10:11 | DVHINCON2 ---
Date Seen: Jun 11, 2024 Referring Physician LISA Garcia Reason for Consultation HTN, CHF History of Present Illness This is a 63-year-old female patient who presents to the emergency room with chief complaint of back pain. At the time of assessment, the patient remains chemically sedated and mechanically ventilated. History obtained from medical records. According to emergency room arrival notes, the patient came from a independent living facility for evaluation of back pain. While in the emergency room, it was noted that the patient was altered. The patient's blood pressure was also noted to be elevated with highest reading at 241/82. A head CT revealed a subacute stroke involving the left frontal lobe with possible involvement of the left temporal lobe as well. A code stroke was called and the patient was eventually intubated for airway protection while in the emergency room. Cardiology has now been consulted at this time for hypertension and CHF. Initial twelve lead electrocardiogram reveals normal sinus rhythm without any significant ST segment changes. Initial troponin level of 17ng/L with flat trend thereafter. Significant past medical history includes hypertension, end- stage renal disease on hemodialysis, and T12 compression fracture. Patient also noted to have aspirin and Plavix ordered per med rec list, unable to clarify if patient has any history of coronary artery disease or stents. No family at [facility] at time of assessment and no previous records at this facility. Past Medical History Past medical history reviewed. No other significant than mentioned above. Past Surgical History Unable to obtain Family History: Patient reports no known family medical history. Family History Family history reviewed. Social History Unable to obtain Allergies: Coded Allergies: NO KNOWN ALLERGIES (Unverified , 06/10/24) Home Meds Home medications reviewed. Current Medications Current Medications Medications (Trade) Dose Ordered Sig/Eric Route PRN Reason Start Time Stop Time Status Last Admin Midazolam HCl 50 ml @ 1 mls/hr Q24H IV 06/11/24 02:00 06/11/24 02:17 DC Fentanyl Citrate 250 ml @ 2.5 mls/hr Q24H IV 06/11/24 02:00 06/11/24 02:17 DC Ondansetron HCl (Zofran) 4 mg Q4HP PRN IV NAUSEA / VOMITING 06/11/24 02:00 Nitroglycerin (Ntrostat Sublingual) 0.4 mg Q5MINP PRN SL FOR CHEST PAIN 06/11/24 02:00 Morphine Sulfate 2 mg Q30M PRN IV FOR CHEST PAIN 06/11/24 02:00 Labetalol HCl (Labetalol HCl) 10 mg Q4HPRN PRN IV SBP>180 06/11/24 02:00 06/11/24 04:33 DC Aspirin 81 mg DAILY PO 06/11/24 10:00 06/11/24 09:58 Atorvastatin Calcium (Lipitor) 40 mg HS PO 06/11/24 22:00 Albuterol (Ventolin Medneb) 2.5 mg Q4HPRN PRN NEB sob 06/11/24 02:00 Ipratropium [place] (Atrovent Medneb) 0.5 mg Q4HPRN PRN NEB SHORTNESS OF BREATH 06/11/24 02:00 Midazolam HCl 50 ml @ 1 mls/hr Q24H IV 06/11/24 02:15 06/11/24 02:10 Fentanyl Citrate 250 ml @ 2.5 mls/hr Q24H IV 06/11/24 02:15 06/11/24 03:27 Labetalol HCl (Labetalol HCl) 10 mg Q2HPRN PRN IV SBP>180 06/11/24 04:30 Nicardipine HCl 250 ml @ 50 mls/hr Q5H IV 06/11/24 04:45 06/11/24 07:40 Diagnostic Test (Pha) (Accu-Chek Comfort Curve T) 1 strip Q6HR 06/11/24 06:00 06/11/24 05:53 Insulin Human Regular (InsuLIN R) Q6HR SC 06/11/24 06:00 Dextrose 50 ml UD PRN IV Blood Sugar LESS THAN 60 06/11/24 04:45 06/11/24 07:07 DC Heparin Sodium (Porcine) 5,000 units Q12HR SC 06/11/24 10:00 Pantoprazole Sodium (Protonix) 40 mg DAILY IV 06/11/24 10:00 06/11/24 09:58 Dextrose 50 ml UD PRN IV BS<70 06/11/24 07:15 Review of Systems Constitutional: No symptom reported Ears, Nose, & Throat: No symptom reported Eyes: No symptom reported Neurological: Altered level of mentation Pulmonary/Respiratory: No symptoms reported Cardiovascular: No symptom reported Gastrointestinal: No symptom reported Genitourinary: No symptom reported Musculoskeletal: Back pain Skin: No symptom reported Psychiatric: No symptom reported Endocrine: No symptom reported Hematologic/Lymphatic: No symptom reported Vital Signs Vital Signs Date Time Temp Pulse Resp B/P (MAP) Pulse Ox O2 Delivery O2 Flow Rate FiO2 06/11/24 09:45 73 160/66 06/11/24 09:24 18 97 30 06/11/24 08:31 98.8 98.8 06/11/24 08:18 Mechanical Ventilator+ 06/10/24 22:50 3 Physical Exam General Appearance: Calm, relaxed Pulmonary/Respiratory: Clear, bilateral breaths sounds. Cardiovascular/Chest: Regular rate and rhythm. Peripheral Pulses: 2+ Radial (R). 2+ Radial (L). 2+ Pedal (R). 2+ Pedal (L) Abdominal Exam: Normal bowel sounds. Ankle Exam: Negative ankle edema Lower extremities: Negative lower extremity edema Neuro/Mental Status: Chemically sedated Thoughts/Psych: Deferred Appearance: No acute distress. Skin Exam: Normal inspection. Normal color. Warm and dry. Labs/Diagnostic Data Labs Test 06/11/24 06:49 06/11/24 05:05 06/11/24 04:08 06/11/24 03:00 Range/Units POC Glucose 63 L 70-106 mg/dl White Blood Count 1.7 *L 4.4-10.8 10^3/uL Red Blood Count 3.55 L 4.0-5.20 10^6/uL Hemoglobin 10.5 L 12.2-16.2 g/dL Hematocrit 31.7 L 36.0-46.0 % Mean Corpuscular Volume 89.3 80.0-100.0 fL Mean Corpuscular Hemoglobin 29.4 28.0-32.0 pg Mean Corpuscular Hemoglobin Concent 33.0 32.0-36.0 g/dL Red Cell Distribution Width 16.1 H 11.8-14.3 % Platelet Count 114 L 140-450 10^3/uL Mean Platelet Volume 7.7 6.9-10.8 fL Neutrophils (%) (Auto) 37.0-80.0 % Lymphocytes (%) (Auto) 10.0-50.0 % Monocytes (%) (Auto) 0.0-12.0 % Basophils (%) (Auto) 0.0-2.0 % Neutrophils # (Auto) 1.6-8.6 10 ^3/uL Lymphocytes # (Auto) 0.4-5.4 10 ^3/uL Monocytes # (Auto) 0-1.3 10 ^3/uL Differential Total Cells Counted 100.0 100 Neutrophils % (Manual) 65 37.0-80.0 Band Neutrophils % (Manual) 2 Lymphocytes % (Manual) 21 10.0-50.0 Monocytes % (Manual) 9 0-12 Eosinophils % (Manual) 3 0-7 Basophils % (Manual) 0 0.0-2.0 Metamyelocytes % (manual) 0 Myelocytes % (Manual) 0 Promyelocytes % (Manual) 0 Blast Cells % (Manual) 0 Reactive Lymphocytes 0 Platelet Estimate Decreased Large Platelets Few Sodium Level 136 136-145 mmol/L Potassium Level 3.5 3.5-5.1 mmol/L Chloride Level 98 98-107 mmol/L Carbon Dioxide Level 27 20-31 mmol/L Anion Gap 11 5-15 Blood Urea Nitrogen 31 H 9-23 mg/dL Creatinine 5.18 H 0.550-1.02 mg/dL Glomerular Filtration Rate Calc 9 >90 mL/min BUN/Creatinine Ratio 6.0 L 10.0-20.0 Serum Glucose 71 L 74-106 mg/dL Hemoglobin A1c 4.3 <5.7 % A1C Calcium Level 10.2 8.7-10.4 mg/dL Triglycerides Level 63 < 150 mg/dL Cholesterol Level 106 < 200 mg/dL LDL Cholesterol 47 < 100 mg/dL HDL Cholesterol 40 40-59 mg/dL Blood Gas Specimen Type Arterial Blood Gas Sample Site Right brachial Blood Gas Patient Temperature 37.0 Arterial Blood Date Drawn [id number] Arterial Blood pH 7.532 H 7.350-7.450 Arterial Blood Partial Pressure CO2 31.6 L 32.0-45.0 mmHg Arterial Blood Partial Pressure O2 285.5 H 83.0-108.0 mmHg Arterial Blood HCO3 25.9 21.0-28.0 mmol/L Arterial Blood Oxygen Saturation 99.7 H 94.0-98.0 % Arterial Blood Base Excess 3.5 H -2.0-3.0 mmol/L Arterial Blood Oxyhemoglobin 98.0 94.0-98.0 % Arterial Blood Carboxyhemoglobin 1.6 H 0.5-1.5 % Arterial Blood Methemoglobin 0.1 0.0-1.5 % Blayne Test N/a Blood Gas Total Hemoglobin 10.50 L 12.0-16.0 g/dL Blood Gas Set Respiration Rate 18.0 Blood Gas Modality Vent - ac Blood Gas Spontaneous Rate 18 FiO2 % 100.0 Blood Gas Tidal Volume 500.0 Blood Gas PEEP or CPAP 5.0 Specimen Drawn By Urine Color Light-yellow Yellow Urine Clarity Turbid H Clear Urine pH 8.0 5.0-9.0 Urine Specific [place] 1.008 1.001-1.035 Urine Protein 3+ H Negative Urine Ketones Negative Negative Urine Blood Negative Negative /uL Urine Nitrite Negative Negative Urine Bilirubin Negative Negative Urine Urobilinogen Normal Negative mg/dL Urine Leukocyte Esterase 1+ Negative /uL Urine RBC 10 0 - 4 /hpf Urine Microscopic WBC 41 H 0-5 /HPF Urine Squamous Epithelial Cells Mod <5 /hpf Urine Bacteria None seen None Seen /hpf Urine Glucose 2+ H Normal mg/dL Urine Opiates Screen Neg NEGATIVE Urine Fentanyl Screen Neg NEGATIVE Urine Barbiturates Screen Neg NEGATIVE Urine Phencyclidine Screen Neg NEGATIVE Urine Amphetamines Screen Neg NEGATIVE Urine Benzodiazepines Screen Neg NEGATIVE Urine Cocaine Screen Neg NEGATIVE Urine Cannabinoids Screen Neg NEGATIVE Test 06/10/24 23:30 06/10/24 23:02 06/10/24 22:36 Range/Units Troponin I High Sensitivity 18 </=34 ng/L Lactic Acid Level 0.7 0.4-2.0 mmol/L Ammonia 22 11-32 umol/L Plasma/Serum Blood Alcohol < 3.0 <10 mg/dL Eosinophils (%) (Auto) 1.6 0.0-7.0 % Eosinophils # (Auto) 0 0-0.8 10 ^3/uL Basophils # (Auto) 0 0-0.2 10 ^3/uL Nucleated Red Blood Cells 0.2 % Total Bilirubin 0.4 0.2-1.0 mg/dL Aspartate Amino Transferase (AST) 23 13-40 U/L Alanine Aminotransferase (ALT) 11 7-40 U/L Alkaline Phosphatase 120 H 46-116 U/L B-Type Natriuretic Peptide 1515.73 0-100 pg/mL Total Protein 7.2 5.7-8.2 g/dL Albumin 4.4 3.2-4.8 g/dL Assessment Acute CVA Hypertensive emergency Rule out structural heart disease Questionable coronary artery disease End-stage renal disease on hemodialysis History of T12 compression fracture Plan/Recommendation We will continue with the following plan/recommendations (Dr. Miller): * Transthoracic echocardiogram to evaluate cardiac function * Aggressive blood pressure control, as per neurology recommendations (perm issive hypertension) * Lipid-lowering agent * Nephrology consult and recommendations Patient seen and examined at bedside with . Thank you for allowing us to care for this patient. Please call with any questions or concerns. Critical care time spent: 44 minutes This medical document was created using an electronic medical record system with voice recognition software and computerized dictation system. Although this document has been carefully reviewed, there might still be some phonetic and typographical errors. Occasional wrong-word or ``sound-alike substitutions may have occurred due to the inherent limitations of voice recognition software. These areas are purely typographical due to imperfections of the software programs and do not reflect any compromise in the patient's medical care. Please read the chart carefully and recognize, using context, where these substitutions have occurred. Plan discussed with: Other NYHA Physical activity limitations: NA Date of Service: Jun 11, 2024 Billing Provider: CHALINO MAYFIELD Cardiology Common Codes: 52278-[id number] INP/OBS CARE (High) Cardiology Consultation Codes: 68867-[id number] CONSULT <45MIN CHALINO MAYFIELD Jun 11, 2024 10:11
[2024-06-11] MEDS: DEXTROSE (50%) 50ML SYRG IV PRN (12:08)
[2024-06-11] MEDS ORDERED: VANCOMYCIN PER PHARMACY 0 MG IV SCH (12:45)
--- NOTE | 2024-06-11 14:49 | DVHSR ---
APPROVED REPORT EXAM: Two-dimensional and M-mode echocardiogram with Doppler and color Doppler. Blood Pressure: 192/67 mmHg INDICATION post cva RISK FACTORS Obesity: Height: 5'2, Weight: 211 DIMENSIONS LVDd4.2 (3.8-5.7cm)LA (2D)4.9 (1.9-4.0cm)Aortic Root2.7 (2.0-3.7cm) LVDs2.7 (2.5-4.0cm)LA (MM) (1.9-4.0cm)Aortic Cusp Exc1.5 (1.5-2.0cm) EF (%) 60.0 (55-70%)Rt. Atrium3.5 (1.9-4.0cm)Asc. Aorta cm IVSd1.5 (0.7-1.1cm)RV (D) (1.8-2.4cm) PWd1.0 (0.7-1.1cm) Mitral Valve MitralMitral Stenosis E wave1.15m/sMV Mean GR.mmHg A wave1.13m/sMV Peak GR.97mmHg E/A ratio1.02D MVAcm2 DECEL [id number] 1/2 Timems Aortic Valve Aortic ValveAortic Stenosis V11.35m/Juan Mean GR.9mmHg V21.97m/Juan Peak GR.16mmHg LVOT Diameter2.1 (1.8-2.4cm)Doppler AVA2.37cm2 Pulmonic Valve V21.38m/s Tricuspid Valve TR Velocity2.69m/s [id number] Other Information Quality : Technically LimitedRhythm : Conclusion LVEF is normal 50-55% Rv function normal Moderate pericardial effusion with no evidence of tamponade Large left pleural effusion
[2024-06-11] MEDS: VANCOMYCIN 1.25GM/250ML 250 ML IV ONE (17:38)
--- NOTE | 2024-06-11 22:14 | DVHINCON2 ---
Date of service: Jun 11, 2024 Referring Physician Ilia Garcia NP Reason for Consultation Acute hypoxic respiratory failure on mechanical ventilator. History of Present Illness Information in this HPI is limited due to the patient's critical condition, acquired from ER physician and EHR. A 63-year-old woman with past medical history of CHF, hypertension, ESRD on HD, falls, T12 compression fracture who was sent in from assisted living to ED on 06/10/24 with initial complaints of back pain. On arrival to the ED, patient was found to be altered. Patient was not following commands. CT of the head was ordered per the emergency department which demonstrated subacute frontal lobe stroke. CXR demonstrated fluid overload. Patient was subsequently intubated for airway protection and admitted for further care. Pulmonary consultation is requested for evaluation and management due to the above findings. Review of Systems: Unable to obtain d/t intubated status. Past Medical History: CHF, hypertension, ESRD on HD, falls, T12 compression fracture Past Surgical History: None Medications: Reviewed. Allergies: No known drug allergies. Family History: No family history of premature CAD. No family history of lung disorders. Social History: Nonsmoker. No alcohol or illicit drug use. Family History: Patient reports no known family medical history. Allergies: Coded Allergies: NO KNOWN ALLERGIES (Unverified , 06/10/24) Home Meds Reported Medications Ondansetron Odt 4MG Tab (ZOFRAN PO) 4 Mg Tb, 1 TAB PO BID for 90 Days, #180 06/12/24 B-Complex W/ C & Folic Acid ([facility]an Rx) Tab, 1 TAB PO DAILY for 90 Days, #90 06/12/24 Nifedipine (Nifedipine Er) 90 Mg Tab, 1 TAB PO DAILY for 30 Days, #30 06/12/24 Clopidogrel Bisulfate (CLOPIDOGREL) 75 Mg Tab, 1 TAB PO DAILY for 30 Days, #30 06/12/24 Gabapentin (Gabapentin) 100 Mg Cap, 1 CAP PO TID for 30 Days, #90 06/12/24 Aspirin (Aspirin Low Dose) 81 Mg Tab, 1 TAB PO DAILY for 30 Days, #30 06/12/24 Atorvastatin Calcium (ATORVASTATIN CALCIUM) 40 Mg Tab, 1 TAB PO DAILY for 30 Days, #30 06/12/24 Losartan Potassium (Losartan Potassium) 100 Mg Tab, 1 TAB PO DAILY for 30 Days, #30 06/12/24 Carvedilol (Carvedilol) 25 Mg Tab, 1 TAB PO BID for 30 Days, #60 06/12/24 Furosemide (Furosemide) 40 Mg Tab, 1 TAB PO BID for 30 Days, #60 06/12/24 Hydralazine Hcl (Hydralazine Hcl) 100 Mg Tab, 1 TAB PO TID for 30 Days, #90 06/12/24 Baclofen (Baclofen) 10 Mg Tab, 1 TAB PO DAILY for 30 Days, #30 06/12/24 Current Medications Current Medications Medications (Trade) Dose Ordered Sig/Eric Route PRN Reason Start Time Stop Time Status Last Admin Midazolam HCl 50 ml @ 1 mls/hr Q24H IV 06/11/24 02:00 06/11/24 02:17 DC Fentanyl Citrate 250 ml @ 2.5 mls/hr Q24H IV 06/11/24 02:00 06/11/24 02:17 DC Ondansetron HCl (Zofran) 4 mg Q4HP PRN IV NAUSEA / VOMITING 06/11/24 02:00 Nitroglycerin (Ntrostat Sublingual) 0.4 mg Q5MINP PRN SL FOR CHEST PAIN 06/11/24 02:00 Morphine Sulfate 2 mg Q30M PRN IV FOR CHEST PAIN 06/11/24 02:00 Labetalol HCl (Labetalol HCl) 10 mg Q4HPRN PRN IV SBP>180 06/11/24 02:00 06/11/24 04:33 DC Aspirin 81 mg DAILY PO 06/11/24 10:00 06/11/24 09:58 Atorvastatin Calcium (Lipitor) 40 mg HS PO 06/11/24 22:00 Albuterol (Ventolin Medneb) 2.5 mg Q4HPRN PRN NEB sob 06/11/24 02:00 Ipratropium [place] (Atrovent Medneb) 0.5 mg Q4HPRN PRN NEB SHORTNESS OF BREATH 06/11/24 02:00 Midazolam HCl 50 ml @ 1 mls/hr Q24H IV 06/11/24 02:15 06/11/24 13:43 Fentanyl Citrate 250 ml @ 2.5 mls/hr Q24H IV 06/11/24 02:15 06/11/24 03:27 Labetalol HCl (Labetalol HCl) 10 mg Q2HPRN PRN IV SBP>180 06/11/24 04:30 Nicardipine HCl 250 ml @ 50 mls/hr Q5H IV 06/11/24 04:45 06/11/24 20:39 Diagnostic Test (Pha) (Accu-Chek Comfort Curve T) 1 strip Q6HR 06/11/24 06:00 06/11/24 17:49 Insulin Human Regular (InsuLIN R) Q6HR SC 06/11/24 06:00 Dextrose 50 ml UD PRN IV Blood Sugar LESS THAN 60 06/11/24 04:45 06/11/24 07:07 DC Heparin Sodium (Porcine) 5,000 units Q12HR SC 06/11/24 10:00 Pantoprazole Sodium (Protonix) 40 mg DAILY IV 06/11/24 10:00 06/11/24 09:58 Dextrose 50 ml UD PRN IV BS<70 06/11/24 07:15 06/11/24 17:50 Vancomycin HCl 0 ml @ 0 mls/hr UD IV 06/11/24 12:45 Vital Signs Vital Signs Date Time Temp Pulse Resp B/P (MAP) Pulse Ox O2 Delivery O2 Flow Rate FiO2 06/11/24 20:39 78 163/73 06/11/24 19:48 18 96 30 06/11/24 19:00 99.1 210.4 06/11/24 08:18 Mechanical Ventilator+ 06/10/24 22:50 3 Physical Exam Gen.: Patient lying in bed in medical ICU. Sedated, intubated on mechanical ventilator. Head: Normocephalic, atraumatic. Eyes: PERRLA. Ears: Normal external anatomy. Throat: Endotracheal tube and orogastric tube in place. Neck: Supple, trachea midline. Chest: Transmitted breath sounds bilaterally. Decreased air entry bilaterally. No wheezing. Bibasilar crackles. Cardiovascular: Positive S1, positive S2. Regular rate and rhythm. Abdomen: Positive bowel sounds in all 4 quadrants. Soft, nontender, nond istended. : Solorio in place. Normal external genitalia. Rectal: Deferred. Skin: Warm, dry. Intact. Extremities: 2+ radial pulses bilaterally. No lower extremity edema. Neuro: Sedated. Labs/Diagnostic Data Labs Test 06/11/24 17:44 06/11/24 05:05 06/11/24 04:08 06/11/24 03:00 Range/Units POC Glucose 68 L 70-106 mg/dl White Blood Count 1.7 *L 4.4-10.8 10^3/uL Red Blood Count 3.55 L 4.0-5.20 10^6/uL Hemoglobin 10.5 L 12.2-16.2 g/dL Hematocrit 31.7 L 36.0-46.0 % Mean Corpuscular Volume 89.3 80.0-100.0 fL Mean Corpuscular Hemoglobin 29.4 28.0-32.0 pg Mean Corpuscular Hemoglobin Concent 33.0 32.0-36.0 g/dL Red Cell Distribution Width 16.1 H 11.8-14.3 % Platelet Count 114 L 140-450 10^3/uL Mean Platelet Volume 7.7 6.9-10.8 fL Neutrophils (%) (Auto) 37.0-80.0 % Lymphocytes (%) (Auto) 10.0-50.0 % Monocytes (%) (Auto) 0.0-12.0 % Basophils (%) (Auto) 0.0-2.0 % Neutrophils # (Auto) 1.6-8.6 10 ^3/uL Lymphocytes # (Auto) 0.4-5.4 10 ^3/uL Monocytes # (Auto) 0-1.3 10 ^3/uL Differential Total Cells Counted 100.0 100 Neutrophils % (Manual) 65 37.0-80.0 Band Neutrophils % (Manual) 2 Lymphocytes % (Manual) 21 10.0-50.0 Monocytes % (Manual) 9 0-12 Eosinophils % (Manual) 3 0-7 Basophils % (Manual) 0 0.0-2.0 Metamyelocytes % (manual) 0 Myelocytes % (Manual) 0 Promyelocytes % (Manual) 0 Blast Cells % (Manual) 0 Reactive Lymphocytes 0 Platelet Estimate Decreased Large Platelets Few Sodium Level 136 136-145 mmol/L Potassium Level 3.5 3.5-5.1 mmol/L Chloride Level 98 98-107 mmol/L Carbon Dioxide Level 27 20-31 mmol/L Anion Gap 11 5-15 Blood Urea Nitrogen 31 H 9-23 mg/dL Creatinine 5.18 H 0.550-1.02 mg/dL Glomerular Filtration Rate Calc 9 >90 mL/min BUN/Creatinine Ratio 6.0 L 10.0-20.0 Serum Glucose 71 L 74-106 mg/dL Hemoglobin A1c 4.3 <5.7 % A1C Calcium Level 10.2 8.7-10.4 mg/dL Triglycerides Level 63 < 150 mg/dL Cholesterol Level 106 < 200 mg/dL LDL Cholesterol 47 < 100 mg/dL HDL Cholesterol 40 40-59 mg/dL Blood Gas Specimen Type Arterial Blood Gas Sample Site Right brachial Blood Gas Patient Temperature 37.0 Arterial Blood Date Drawn [id number] Arterial Blood pH 7.532 H 7.350-7.450 Arterial Blood Partial Pressure CO2 31.6 L 32.0-45.0 mmHg Arterial Blood Partial Pressure O2 285.5 H 83.0-108.0 mmHg Arterial Blood HCO3 25.9 21.0-28.0 mmol/L Arterial Blood Oxygen Saturation 99.7 H 94.0-98.0 % Arterial Blood Base Excess 3.5 H -2.0-3.0 mmol/L Arterial Blood Oxyhemoglobin 98.0 94.0-98.0 % Arterial Blood Carboxyhemoglobin 1.6 H 0.5-1.5 % Arterial Blood Methemoglobin 0.1 0.0-1.5 % Blayne Test N/a Blood Gas Total Hemoglobin 10.50 L 12.0-16.0 g/dL Blood Gas Set Respiration Rate 18.0 Blood Gas Modality Vent - ac Blood Gas Spontaneous Rate 18 FiO2 % 100.0 Blood Gas Tidal Volume 500.0 Blood Gas PEEP or CPAP 5.0 Specimen Drawn By Urine Color Light-yellow Yellow Urine Clarity Turbid H Clear Urine pH 8.0 5.0-9.0 Urine Specific [place] 1.008 1.001-1.035 Urine Protein 3+ H Negative Urine Ketones Negative Negative Urine Blood Negative Negative /uL Urine Nitrite Negative Negative Urine Bilirubin Negative Negative Urine Urobilinogen Normal Negative mg/dL Urine Leukocyte Esterase 1+ Negative /uL Urine RBC 10 0 - 4 /hpf Urine Microscopic WBC 41 H 0-5 /HPF Urine Squamous Epithelial Cells Mod <5 /hpf Urine Bacteria None seen None Seen /hpf Urine Glucose 2+ H Normal mg/dL Urine Opiates Screen Neg NEGATIVE Urine Fentanyl Screen Neg NEGATIVE Urine Barbiturates Screen Neg NEGATIVE Urine Phencyclidine Screen Neg NEGATIVE Urine Amphetamines Screen Neg NEGATIVE Urine Benzodiazepines Screen Neg NEGATIVE Urine Cocaine Screen Neg NEGATIVE Urine Cannabinoids Screen Neg NEGATIVE Test 06/10/24 23:30 06/10/24 23:02 06/10/24 22:36 Range/Units Troponin I High Sensitivity 18 </=34 ng/L Lactic Acid Level 0.7 0.4-2.0 mmol/L Ammonia 22 11-32 umol/L Plasma/Serum Blood Alcohol < 3.0 <10 mg/dL Eosinophils (%) (Auto) 1.6 0.0-7.0 % Eosinophils # (Auto) 0 0-0.8 10 ^3/uL Basophils # (Auto) 0 0-0.2 10 ^3/uL Nucleated Red Blood Cells 0.2 % Total Bilirubin 0.4 0.2-1.0 mg/dL Aspartate Amino Transferase (AST) 23 13-40 U/L Alanine Aminotransferase (ALT) 11 7-40 U/L Alkaline Phosphatase 120 H 46-116 U/L B-Type Natriuretic Peptide 1515.73 0-100 pg/mL Total Protein 7.2 5.7-8.2 g/dL Albumin 4.4 3.2-4.8 g/dL Microbiology Date/Time Source Procedure Growth Status 06/11/24 02:07 Trachea Gram Stain - Final Resulted 06/11/24 02:07 Trachea Respiratory Culture Pending Resulted Assessment Impression: Acute hypoxic respiratory failure On mechanical ventilator Acute CVA Acute encephalopathy ESRD, on hemodialysis Pulmonary edema Shock Obesity BMI 33.3 Plan: s/p intubation on mechanical ventilator. CXR image and report reviewed; shows pulmonary vascular congestion. Devices in place. On AC mode; RR 18, VT 500, PEEP 5, FiO2 30% Titrate FIO2 to keep O2 saturation above 90%. VAP bundle. Daily ABG and CXR while intubated Sedate for ventilator synchrony - on Versed Fentanyl drip for analgesia ABG reviewed, notable for alkalemia. Taper VT to 450 mL On nicardipine drip 2.5 mcg for blood pressure Continue antibiotics. F/u cultures. Aspirin, statin Obtain Echo Follow up Cardiology recs Pressors as necessary for hemodynamic support Titrate to keep mean arterial pressure greater than 65 mmHg. HD per Nephrology Monitor renal function Monitor electrolytes. Supplement as necessary. Monitor ins and outs. Maintain euvolemia. GI prophylaxis. DVT prophylaxis. Prognosis: Poor given patient's multiple co-morbidities. Condition: Critical Rest of plan per hospitalist and other consultants. A total of 35 minutes of critical care time was spent reviewing the patient record, examining the patient, making a diagnostic and therapeutic plan, discussing this plan with the medical personnel, following up on diagnostic studies and following the patient for clinical stability excluding any and all procedures. At least 50% of this time was spent in direct, [id number] contact. Thank you, LISA Garcia, for allowing me to participate in this patient's care. Further recommendations will depend on the patient's clinical course. Please do not hesitate to contact me if you have any questions or concerns. This medical document was created using an electronic medical record system with [employer] dictation system. Although these documentations are being carefully reviewed, there may still be some phonetic and typographical changes. The errors are purely typographical, due to imperfection on the software [employer], and do not reflect any compromise in the patient's medical care. Plan discussed with: Other (RN, RT, HOTEL SERVER) NAE BELLAMY MD Jun 11, 2024 22:14
[2024-06-12] VITALS (41 sets, daily range): BP systolic 126–187; BP diastolic 45–72; PULSE 49–97; RESP 14–19; TEMP 96.8–100.4; O2SAT 91–100
[2024-06-12] MEDS: ATORVASTATIN 20 MG TAB PO SCH (00:25)
[2024-06-12] MEDS: cefTRIAXone 1GM/50ML D5W 50 ML IV ONE (00:26)
[2024-06-12] MEDS: ACETAMINOPHEN 650 mg PER 20.3 mL UD GT PRN (02:48)
[2024-06-12 05:46] LABS: Basophils # (auto) 0 10 ^3/uL (0-0.2); Basophils % (auto) 0.4 % (0.0-2.0); Eosinophils # (auto) 0 10 ^3/uL (0-0.8); Eosinophils % (auto) 1.5 % (0.0-7.0); Hematocrit 29.5 % (36.0-46.0); Hemoglobin 9.9 g/dL (12.2-16.2); Lymphocytes # (auto) 0.5 10 ^3/uL (0.4-5.4); Lymphocytes % (auto) 18.7 % (10.0-50.0); Mean Corpuscular Hgb Conc. 33.7 g/dL (32.0-36.0); Mean Corpuscular Volume 89.2 fL (80.0-100.0); Monocytes # (auto) 0.2 10 ^3/uL (0-1.3); Monocytes % (auto) 8.1 % (0.0-12.0); Neutrophils % (auto) 71.3 % (37.0-80.0); Nucleated Red Blood Cells % 0.2 %; Platelet Count (auto) 122 10^3/uL (140-450); Red Blood Cells 3.31 10^6/uL (4.0-5.20); Red Cell Distribution Width 16.2 % (11.8-14.3); White Blood Cell 2.8 10^3/uL (4.4-10.8)
[2024-06-12 05:58] LABS: Anion Gap 11 (5-15); Calcium 9.4 mg/dL (8.7-10.4); Carbon Dioxide 26 mmol/L (20-31); Potassium 4.2 mmol/L (3.5-5.1)
[2024-06-12 06:01] LABS: Chloride 96 mmol/L (98-107); Sodium 133 mmol/L (136-145)
[2024-06-12 06:04] LABS: BUN/Creatinine Ratio 5.8 (10.0-20.0)
[2024-06-12 06:25] LABS: Blood Urea Nitrogen 36 mg/dL (9-23); Glucose 71 mg/dL (74-106)
--- NOTE | 2024-06-12 06:26 | DVH ---
EXAM: XR Chest, 1 View CLINICAL INDICATION: INTUBATED TECHNIQUE: Frontal view of the chest. COMPARISON: XY CHEST XRAY 1 VIEW on DOS: 06/11/24, XY CHEST PORTABLE on DOS: 06/10/24 FINDINGS: LUNGS AND PLEURAL SPACES: See below. HEART: Cardiomegaly with mild congestion. MEDIASTINUM: Unremarkable. Normal mediastinal contour. BONES/JOINTS: Unremarkable. No acute fracture. TUBES, LINES AND DEVICES: Right internal jugular central venous catheter tip in the superior vena c neeta. The endotracheal tube (ETT) is in satisfactory position. Enteric tube tip in the stomach. OTHER FINDINGS: . . . IMPRESSION: Cardiomegaly with mild congestion.
[2024-06-12 07:13] LABS: Base Excess 3.5 mmol/L (-2.0-3.0)
[2024-06-12] MEDS: ACCU-CHEK COMFORT CURVE STRIP VI SCH (09:32)
--- NOTE | 2024-06-12 09:43 | DVH ---
EXAMINATION: MRI BRAIN HEAD WO CONTRAST INDICATION: Acute CVA COMPARISON: CTA head 06/10/2024 TECHNIQUE: Multiplanar, multisequence magnetic resonance imaging of the brain was performed without t he use of intravenous contrast. FINDINGS: There is no restricted diffusion. There is encephalomalacia and gliosis in the superolateral left fro ntal lobe which likely relates to chronic infarct. There are scattered small hyperintense T2 foci in the supratentorial white matter likely related to minimal chronic microvascular ischemic changes. Th ere is no evidence of hemorrhage, mass, mass effect or midline shift. There is no hydrocephalus or ex tra-axial fluid collection. The visualized intracranial vasculature demonstrates appropriate flow-voi ds. The sagittal midline structures appear unremarkable. The craniocervical junction is within normal limits. The calvarium demonstrates normal marrow signal. The paranasal sinuses and mastoid air cells are clear. IMPRESSION: 1. There is no acute intracranial process. 2. Chronic infarct in the superolateral left frontal lobe. HS:Y
--- NOTE | 2024-06-12 11:23 | DVHINCON2 ---
DATE OF CONSULTATION: 06/12/2024 CONSULTING PHYSICIAN: Dr. Arias. REASON FOR CONSULTATION: Management of dialysis. HISTORY OF PRESENT ILLNESS: The patient is a 63-year-old female who is a chronic dialysis patient who was admitted to the hospital yesterday. She came here after apparently having an episode of syncope or loss of consciousness. Apparently, she has a history of frequent falls. She was sent from an assisted living facility with complaints of back pain. She was found to have a compression fracture of the spine. She was having mental status changes. They also found by CAT scan that she had some subacute strokes, so the patient was not arousable. She was having some problems with ventilation and had to be intubated for airway protection. Currently, she is on mechanical ventilation, awaiting admission to the intensive care unit and being consulted to handle her dialysis treatment. REVIEW OF SYSTEMS: Not obtainable due to her current condition. PAST MEDICAL HISTORY: Significant for longstanding hypertension, end-stage renal disease, congestive heart failure, and anemia. MEDICATIONS: In hospital include Zofran, nitroglycerin, morphine, labetalol, aspirin, atorvastatin, midazolam, and fentanyl. SOCIAL HISTORY: Not available. PHYSICAL EXAMINATION: VITAL SIGNS: Blood pressure is 134/ . The patient is on mechanical ventilation and sedated. HEENT: Otherwise unremarkable. LUNGS: Diminished entry at the bases. CARDIOVASCULAR: Regular rate with 1/6 systolic murmur. ABDOMEN: Soft, mildly distended. Bowel sounds were diminished in intensity and frequency. EXTREMITIES: No clubbing, cyanosis, or edema. NEUROLOGIC: Exam was not performed. SKIN: Unremarkable. LABORATORY DATA: Her sodium is 133, potassium 4.2, creatinine 6.1, hemoglobin 9.9, white blood cell count 2.8, platelet count 122,000. ASSESSMENT AND PLAN: * End-stage renal disease. From renal standpoint, she appears to be stable. There is no need for renal replacement therapy today. We will schedule her dialysis to continue on Sunday, Sunday and Sunday while she is in the hospital. * Mild hyponatremia. We will avoid the use of hypotonic fluids. * Anemia of renal disease. Epogen with dialysis. * She appears to be leukopenic, I suggest Hematology consultation. * Respiratory failure, on mechanical ventilation for airway protection. * Subacute stroke. * T-spine fracture. We will follow her closely and continue to handle her dialysis as needed. Thank you for the consultation. MD SHAE Gambino/ENZO/LISANDRO TID: [id number] RECEIPT: [id number]
--- NOTE | 2024-06-12 12:27 | DVHINCON2 ---
Date of service: Jun 12, [address] Mccollum Reason for Consultation Antibiotics recs History of Present Illness Patient is a 63-year-old female presented to the hospital for the complaints of back pain. Information in this HPI is limited due to the patient's critical condition. According to records, patient came from a independent living facility for evaluation of back pain. On arrival to the emergency department patient was found to be altered. Blood pressure was also noted to be elevated with highest reading at 241/82 mmHg. Patient was not following commands. She was arousable and her tongue was swollen and kept rolling back into her throat. Patient was intubated for airway protection. CT of the head revealed subacute frontal lobes stroke. CXR demonstrated fluid overload. Off note, Patient was admitted in [facility] on 05/16 after experiencing fall. Upon admission, patient reported that she fell 2 days ago. She has history of ostearthritis. On day of admission patient gave out both the knees and ended up experiencing a mechanical fall. At home she is on 2L oxygen. CT of head showed mild edematous atypical changes. CT of Spine revealed mild acute T12 compression fracture. MRI of brain was negative for any acute pathology changes. MRI of lumbar spine concerned for discitis/Osteomyelitis Surgery and Ortho consulted for acute superior T12 compression fracture During hospitalization, patient was treated with Vancomycin and Ceftriaxone IV. Patient got discharge with IV Vancomycin for 6 weeks. Past Medical History Patient's Past Medical History is significant for CHF, Hypertension and Chronic renal failure Family History: Patient reports no known family medical history. Allergies: Coded Allergies: NO KNOWN ALLERGIES (Unverified , 06/10/24) Home Meds Reported Medications Ondansetron Odt 4MG Tab (ZOFRAN PO) 4 Mg Tb, 1 TAB PO BID for 90 Days, #180 06/12/24 B-Complex W/ C & Folic Acid (Kimi-Susan Rx) Tab, 1 TAB PO DAILY for 90 Days, #90 06/12/24 Nifedipine (Nifedipine Er) 90 Mg Tab, 1 TAB PO DAILY for 30 Days, #30 06/12/24 Clopidogrel Bisulfate (CLOPIDOGREL) 75 Mg Tab, 1 TAB PO DAILY for 30 Days, #30 06/12/24 Gabapentin (Gabapentin) 100 Mg Cap, 1 CAP PO TID for 30 Days, #90 06/12/24 Aspirin (Aspirin Low Dose) 81 Mg Tab, 1 TAB PO DAILY for 30 Days, #30 4/24/25 Atorvastatin Calcium (ATORVASTATIN CALCIUM) 40 Mg Tab, 1 TAB PO DAILY for 30 Days, #30 06/12/24 Losartan Potassium (Losartan Potassium) 100 Mg Tab, 1 TAB PO DAILY for 30 Days, #30 06/12/24 Carvedilol (Carvedilol) 25 Mg Tab, 1 TAB PO BID for 30 Days, #60 06/12/24 Furosemide (Furosemide) 40 Mg Tab, 1 TAB PO BID for 30 Days, #60 06/12/24 Hydralazine Hcl (Hydralazine Hcl) 100 Mg Tab, 1 TAB PO TID for 30 Days, #90 06/12/24 Baclofen (Baclofen) 10 Mg Tab, 1 TAB PO DAILY for 30 Days, #30 06/12/24 Current Medications Current Medications Medications (Trade) Dose Ordered Sig/Eric Route PRN Reason Start Time Stop Time Status Last Admin Atorvastatin Calcium (Lipitor) 40 mg HS PO 06/11/24 22:00 06/12/24 00:25 Vancomycin HCl 0 ml @ 0 mls/hr UD IV 06/11/24 12:45 Ceftriaxone Sodium 50 ml @ 100 mls/hr DAILY@09 IV 06/13/24 09:00 Acetaminophen (Tylenol Solution Oral) 650 mg Q6HP PRN GT PAIN SCALE 1-3 OR TEMP>100.4 06/11/24 23:45 06/12/24 02:48 Diagnostic Test (Pha) (Accu-Chek Comfort Curve T) 1 strip Q2HR 06/12/24 08:00 06/12/24 12:02 Review of Systems Unable to complete due to critical condition Vital Signs Vital Signs Date Time Temp Pulse Resp B/P (MAP) Pulse Ox O2 Delivery O2 Flow Rate FiO2 06/12/24 12:03 54 18 141/57 (85) 98 30 06/12/24 11:30 97.3 97.3 06/12/24 07:30 Mechanical Ventilator+ 06/10/24 22:50 3 Physical Exam General Appeara(Altered, not arousable,) HEENT: Et tube+ Respiratory: Other (Intubated on mechanical ventilator) Cardiovascular: Regular rate, Normal S1, Normal S2 Abdominal: Normal bowel sounds, Soft, No tenderness Extremities: Other (BLE pitting edema 3+) Skin: No rashes Neuro: Other (Altered non arousable) Psych/Mental Status: Other (Unable to assess) Labs/Diagnostic Data Labs Test 06/12/24 09:24 06/12/24 07:03 06/12/24 04:44 06/11/24 05:05 Range/Units POC Glucose 67 L 70-106 mg/dl Blood Gas Specimen Type Arterial Blood Gas Sample Site Right brachial Blood Gas Patient Temperature 37.0 Arterial Blood Date Drawn [id number] Arterial Blood pH 7.534 H 7.350-7.450 Arterial Blood Partial Pressure CO2 31.4 L 32.0-45.0 mmHg Arterial Blood Partial Pressure O2 68.1 L 83.0-108.0 mmHg Arterial Blood HCO3 25.9 21.0-28.0 mmol/L Arterial Blood Oxygen Saturation 94.3 94.0-98.0 % Arterial Blood Base Excess 3.5 H -2.0-3.0 mmol/L Arterial Blood Oxyhemoglobin 92.3 L 94.0-98.0 % Arterial Blood Carboxyhemoglobin 1.8 H 0.5-1.5 % Arterial Blood Methemoglobin 0.3 0.0-1.5 % Blayne Test Modified Blood Gas Total Hemoglobin 10.50 L 12.0-16.0 g/dL Blood Gas Set Respiration Rate 18.0 Blood Gas Modality Vent - ac FiO2 % 30.0 Blood Gas Tidal Volume 450.0 Blood Gas PEEP or CPAP 5.0 Specimen Drawn By Mac lobo White Blood Count 2.8 L 4.4-10.8 10^3/uL Red Blood Count 3.31 L 4.0-5.20 10^6/uL Hemoglobin 9.9 L 12.2-16.2 g/dL Hematocrit 29.5 L 36.0-46.0 % Mean Corpuscular Volume 89.2 80.0-100.0 fL Mean Corpuscular Hemoglobin 30.0 28.0-32.0 pg Mean Corpuscular Hemoglobin Concent 33.7 32.0-36.0 g/dL Red Cell Distribution Width 16.2 H 11.8-14.3 % Platelet Count 122 L 140-450 10^3/uL Mean Platelet Volume 8.1 6.9-10.8 fL Neutrophils (%) (Auto) 71.3 37.0-80.0 % Lymphocytes (%) (Auto) 18.7 10.0-50.0 % Monocytes (%) (Auto) 8.1 0.0-12.0 % Eosinophils (%) (Auto) 1.5 0.0-7.0 % Basophils (%) (Auto) 0.4 0.0-2.0 % Neutrophils # (Auto) 2.0 1.6-8.6 10 ^3/uL Lymphocytes # (Auto) 0.5 0.4-5.4 10 ^3/uL Monocytes # (Auto) 0.2 0-1.3 10 ^3/uL Eosinophils # (Auto) 0 0-0.8 10 ^3/uL Basophils # (Auto) 0 0-0.2 10 ^3/uL Nucleated Red Blood Cells 0.2 % Sodium Level 133 L 136-145 mmol/L Potassium Level 4.2 3.5-5.1 mmol/L Chloride Level 96 L 98-107 mmol/L Carbon Dioxide Level 26 20-31 mmol/L Anion Gap 11 5-15 Blood Urea Nitrogen 36 H 9-23 mg/dL Creatinine 6.17 H 0.550-1.02 mg/dL Glomerular Filtration Rate Calc 7 >90 mL/min BUN/Creatinine Ratio 5.8 L 10.0-20.0 Serum Glucose 71 L 74-106 mg/dL Calcium Level 9.4 8.7-10.4 mg/dL Random Vancomycin Level 40.3 *H 5-10 ug/mL Differential Total Cells Counted 100.0 100 Neutrophils % (Manual) 65 37.0-80.0 Band Neutrophils % (Manual) 2 Lymphocytes % (Manual) 21 10.0-50.0 Monocytes % (Manual) 9 0-12 Eosinophils % (Manual) 3 0-7 Basophils % (Manual) 0 0.0-2.0 Metamyelocytes % (manual) 0 Myelocytes % (Manual) 0 Promyelocytes % (Manual) 0 Blast Cells % (Manual) 0 Reactive Lymphocytes 0 Platelet Estimate Decreased Large Platelets Few Hemoglobin A1c 4.3 <5.7 % A1C Triglycerides Level 63 < 150 mg/dL Cholesterol Level 106 < 200 mg/dL LDL Cholesterol 47 < 100 mg/dL HDL Cholesterol 40 40-59 mg/dL Test 06/11/24 04:08 06/11/24 03:00 06/10/24 23:30 06/10/24 23:02 Range/Units Blood Gas Spontaneous Rate 18 Urine Color Light-yellow Yellow Urine Clarity Turbid H Clear Urine pH 8.0 5.0-9.0 Urine Specific [place] 1.008 1.001-1.035 Urine Protein 3+ H Negative Urine Ketones Negative Negative Urine Blood Negative Negative /uL Urine Nitrite Negative Negative Urine Bilirubin Negative Negative Urine Urobilinogen Normal Negative mg/dL Urine Leukocyte Esterase 1+ Negative /uL Urine RBC 10 0 - 4 /hpf Urine Microscopic WBC 41 H 0-5 /HPF Urine Squamous Epithelial Cells Mod <5 /hpf Urine Bacteria None seen None Seen /hpf Urine Glucose 2+ H Normal mg/dL Urine Opiates Screen Neg NEGATIVE Urine Fentanyl Screen Neg NEGATIVE Urine Barbiturates Screen Neg NEGATIVE Urine Phencyclidine Screen Neg NEGATIVE Urine Amphetamines Screen Neg NEGATIVE Urine Benzodiazepines Screen Neg NEGATIVE Urine Cocaine Screen Neg NEGATIVE Urine Cannabinoids Screen Neg NEGATIVE Troponin I High Sensitivity 18 </=34 ng/L Lactic Acid Level 0.7 0.4-2.0 mmol/L Ammonia 22 11-32 umol/L Plasma/Serum Blood Alcohol < 3.0 <10 mg/dL Test 06/10/24 22:36 Range/Units Total Bilirubin 0.4 0.2-1.0 mg/dL Aspartate Amino Transferase (AST) 23 13-40 U/L Alanine Aminotransferase (ALT) 11 7-40 U/L Alkaline Phosphatase 120 H 46-116 U/L B-Type Natriuretic Peptide 1515.73 0-100 pg/mL Total Protein 7.2 5.7-8.2 g/dL Albumin 4.4 3.2-4.8 g/dL Microbiology Date/Time Source Procedure Growth Status 06/11/24 02:07 Trachea Gram Stain - Final Resulted 06/11/24 02:07 Trachea Respiratory Culture Pending Resulted Assessment Patient is a 63-year-old female presents to the hospital with: Vertebral Discitis subacute CVA Acute encephalopathy Acute hypoxic respiratory S/P intubation on mechanical ventilator Leucopenia ESRD on HD Fluid overload Hypertensive emergency Hx T12 compression fracture Recommendations: Patient was on IV vancomycin as outpt. ; continue I do think there were any positive cultures, she was being treated empirically Continue IV Ceftriaxone and Vancomycin IV Monitor Vancomycin Trough, 06/12, Vancomycin Random is 40.3 WBC low, currently at 2.4; monitor on MV blood cultures follow cultures Antibiotic status: Ceftriaxone IV [Started on 06/11 - Ongoing] Vancomycin IV [Started on 06/11 - Ongoing] 06/11, Respiratory culture preliminary showed Normal Oropharyngeal Trish Review of Imagin/24, Chest x-ray showed Cardiomegaly with mild congestion Prognosis guarded Thank you for consult. Plan discussed with: GONZÁLEZ Vidal MD Jun 12, 2024 12:27
[2024-06-12] MEDS: D5W 5% 1,000 ML IV SCH (15:01)
--- NOTE | 2024-06-12 15:58 | DVHPN2 ---
Subjective Patient was remains intubated and sedated, currently on FiO2 30%, nicardipine drip is off. Reviewed: Care Plan Changes from previous H/P or p: No Changes Objective Vitals Vital Signs Date Time Temp Pulse Resp B/P (MAP) Pulse Ox O2 Delivery O2 Flow Rate FiO2 06/12/24 15:00 96.3 49 18 150/57 (88) 98 96.3 06/12/24 13:40 30 06/12/24 07:30 Mechanical Ventilator+ 06/10/24 22:50 3 Intake/Output Intake and Output 06/12/24 07:00 Intake Total 1432.0 ml Output Total 50 ml Balance 1382.0 ml Intake Oral 300 ml IV Total 1032.0 ml Tube Feeding 100 ml Output Urine Total 50 ml Exam HEENT pupils are reactive Neck is supple CV is S1-S2 regular rate and rhythm Respiratory diminished breath sound on provided lung bases GI posterior bowel sound Extremity no edema 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 Medications Current Medications Medications Dose Ordered Sig/Eric Route Start Time Stop Time Status Last Admin Dose Admin Ondansetron HCl 4 mg Q4HP PRN IV 06/11/24 02:00 Nitroglycerin 0.4 mg Q5MINP PRN SL 06/11/24 02:00 Morphine Sulfate 2 mg Q30M PRN IV 06/11/24 02:00 Aspirin 81 mg DAILY PO 06/11/24 10:00 06/11/24 09:58 81 MG Atorvastatin Calcium 40 mg HS PO 06/11/24 22:00 06/12/24 00:25 40 MG Albuterol 2.5 mg Q4HPRN PRN NEB 06/11/24 02:00 Ipratropium [place] 0.5 mg Q4HPRN PRN NEB 06/11/24 02:00 Midazolam HCl 50 ml @ 1 mls/hr Q24H IV 06/11/24 02:15 06/12/24 10:09 7 MLS/HR Fentanyl Citrate 250 ml @ 2.5 mls/hr Q24H IV 06/11/24 02:15 06/12/24 05:10 15 MLS/HR Labetalol HCl 10 mg Q2HPRN PRN IV 06/11/24 04:30 Nicardipine HCl 250 ml @ 50 mls/hr Q5H IV 06/11/24 04:45 06/11/24 20:39 25 MLS/HR Insulin Human Regular Q6HR SC 06/11/24 06:00 Heparin Sodium (Porcine) 5,000 units Q12HR SC 06/11/24 10:00 Pantoprazole Sodium 40 mg DAILY IV 06/11/24 10:00 06/12/24 10:20 40 MG Dextrose 50 ml UD PRN IV 06/11/24 07:15 06/12/24 14:52 50 ML Vancomycin HCl 0 ml @ 0 mls/hr UD IV 06/11/24 12:45 Ceftriaxone Sodium 50 ml @ 100 mls/hr DAILY@09 IV 06/13/24 09:00 Acetaminophen 650 mg Q6HP PRN GT 06/11/24 23:45 06/12/24 02:48 650 MG Diagnostic Test (Pha) 1 strip Q2HR 06/12/24 08:00 06/12/24 14:52 1 STRIP Dextrose 1,000 ml @ 50 mls/hr Q20H IV 06/12/24 15:00 06/12/24 15:01 50 MLS/HR Laboratory Results Laboratory Tests 06/12/24 04:44 Chemistry Test 06/12/24 04:44 Calcium Level 9.4 mg/dL (8.7-10.4) Urinalysis Test 06/11/24 03:00 Urine Color Light-yellow (Yellow) Urine Clarity Turbid (Clear) H Urine pH 8.0 (5.0-9.0) Urine Specific [place] 1.008 (1.001-1.035) Urine Protein 3+ (Negative) H Urine Ketones Negative (Negative) Urine Blood Negative /uL (Negative) Urine Nitrite Negative (Negative) Urine Bilirubin Negative (Negative) Urine Urobilinogen Normal mg/dL (Negative) Urine Leukocyte Esterase 1+ /uL (Negative) Urine RBC 10 /hpf (0 - 4) Urine Microscopic WBC 41 /HPF (0-5) H Urine Squamous Epithelial Cells Mod /hpf (<5) Urine Bacteria None seen /hpf (None Seen) Urine Glucose 2+ mg/dL (Normal) H Blood Gas Results Test 06/12/24 07:03 Arterial Blood pH 7.534 (7.350-7.450) FiO2 % 30.0 Microbiology Microbiology Date/Time Source Procedure Growth Status 06/11/24 02:07 Trachea Gram Stain - Final Resulted 06/11/24 02:07 Trachea Respiratory Culture - Preliminary Resulted Assessment/Plan Assessment/Plan 63-year-old female with a known history of hypertension, dyslipidemia, coronary artery disease, anxiety disorder, recent mechanical fall found to have acute small T12 compression fracture, L3-4 lumbar diskitis presented to the hospital with right-sided weakness altered mental status eventually intubated in the ER for airway protection. Patient was found to have acute/subacute left frontal and temporal infarct currently MRI brain is pending. 1. Acute hypoxic respiratory failure requiring intubation with mechanical ventilation secondary to metabolic encephalopathy 2. Metabolic encephalopathy rule out acute CVA 3.Subacute CVA with the left frontal and temporal infarct 4. Hypertensive emergency with the end-organ involvement , off the nicardipine drip 5. End-stage renal disease on hemodialysis 6. Coronary artery disease 7. L3-4 lumbar diskitis/osteomyelitis, resume IV vancomycin and consult infectious disease specialist 8. 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
--- NOTE | 2024-06-12 20:19 | DVHPN2 ---
Progress Note - Dictate Date Seen: Jun 12, 2024 Medical Necessity Reason Pt with a Central, PICC or Fol: Yes The following are medically ne: Eagle Catheter Reason for eagle catheter: Strict I&O Subjective Patient seen and examined at bedside. Sedated, intubated on mechanical ventilator. Overnight events reviewed. vital signs Vital Sign Date Time Temp Pulse Resp B/P (MAP) Pulse Ox O2 Delivery O2 Flow Rate FiO2 06/12/24 20:15 97.0 51 18 156/58 (90) 98 206.6 06/12/24 20:00 30 06/12/24 20:00 Mechanical Ventilator+ 06/10/24 22:50 3 Total Intake and Output 06/11/24 06/11/24 06/12/24 15:00 23:00 07:00 Intake Total 264.0 ml 559.0 ml 609 ml Output Total 40 ml 10 ml Balance 264.0 ml 519.0 ml 599 ml medications Current Medications Medications Dose Ordered Sig/Eric Route Start Time Stop Time Status Last Admin Dose Admin Ondansetron HCl 4 mg Q4HP PRN IV 06/11/24 02:00 Nitroglycerin 0.4 mg Q5MINP PRN SL 06/11/24 02:00 Morphine Sulfate 2 mg Q30M PRN IV 06/11/24 02:00 Aspirin 81 mg DAILY PO 06/11/24 10:00 06/11/24 09:58 81 MG Atorvastatin Calcium 40 mg HS PO 06/11/24 22:00 06/12/24 00:25 40 MG Albuterol 2.5 mg Q4HPRN PRN NEB 06/11/24 02:00 Ipratropium [place] 0.5 mg Q4HPRN PRN NEB 06/11/24 02:00 Midazolam HCl 50 ml @ 1 mls/hr Q24H IV 06/11/24 02:15 06/12/24 16:47 7 MLS/HR Fentanyl Citrate 250 ml @ 2.5 mls/hr Q24H IV 06/11/24 02:15 06/12/24 05:10 15 MLS/HR Labetalol HCl 10 mg Q2HPRN PRN IV 06/11/24 04:30 Nicardipine HCl 250 ml @ 50 mls/hr Q5H IV 06/11/24 04:45 06/11/24 20:39 25 MLS/HR Insulin Human Regular Q6HR SC 06/11/24 06:00 Heparin Sodium (Porcine) 5,000 units Q12HR SC 06/11/24 10:00 Pantoprazole Sodium 40 mg DAILY IV 06/11/24 10:00 06/12/24 10:20 40 MG Dextrose 50 ml UD PRN IV 06/11/24 07:15 06/12/24 14:52 50 ML Vancomycin HCl 0 ml @ 0 mls/hr UD IV 06/11/24 12:45 Ceftriaxone Sodium 50 ml @ 100 mls/hr DAILY@09 IV 06/13/24 09:00 Acetaminophen 650 mg Q6HP PRN GT 06/11/24 23:45 06/12/24 02:48 650 MG Diagnostic Test (Pha) 1 strip Q2HR 06/12/24 08:00 06/12/24 20:00 1 STRIP Dextrose 1,000 ml @ 50 mls/hr Q20H IV 06/12/24 15:00 06/12/24 15:01 50 MLS/HR objective Gen.: Patient lying in bed in medical ICU. Sedated, intubated on mechanical ventilator. Head: Normocephalic, atraumatic. Eyes: PERRLA. Ears: Normal external anatomy. Throat: Endotracheal tube and orogastric tube in place. Neck: Supple, trachea midline. Chest: Transmitted breath sounds bilaterally. Decreased air entry bilaterally. No wheezing. Bibasilar crackles. Cardiovascular: Positive S1, positive S2. Regular rate and rhythm. Abdomen: Positive bowel sounds in all 4 quadrants. Soft, nontender, nondistended. : Eagle in place. Normal external genitalia. Rectal: Deferred. Skin: Warm, dry. Intact. Extremities: 2+ radial pulses bilaterally. No lower extremity edema. Neuro: Sedated. laboratory and microbiology Laboratory Tests 06/12/24 04:44 Test 06/12/24 04:44 Range/Units Serum Glucose 71 L 74-106 mg/dL Assessment/Plan Impression: Acute hypoxic respiratory failure On mechanical ventilator Acute CVA Acute encephalopathy ESRD, on hemodialysis Events: Remains on vent support On AC mode; RR 18, VT 450, PEEP 5, FiO2 30% Sedated on Versed Fentanyl drip for analgesia Off nicardipine Monitor blood pressure Taper sedation as tolerated OK for Precedex if necessary CPAP in the AM with PS 8, PEEP of 5. ABG reviewed, notable for alkalemia CXR reviewed, demonstrates cardiomegaly with mild congestion. Devices in place. Labs and imaging reviewed. Rest of plan as noted below. Plan: s/p intubation on mechanical ventilator. On AC mode; RR 18, VT 450, PEEP 5, FiO2 30% Titrate FIO2 to keep O2 saturation above 90%. VAP bundle. Daily ABG and CXR while intubated Sedate for ventilator synchrony F/u cultures - blood cultures show no growth after 24 hours. On statin Obtain Echo Follow up Cardiology recs Pressors as necessary for hemodynamic support Titrate to keep mean arterial pressure greater than 65 mmHg. HD per Nephrology Monitor renal function Monitor electrolytes. Supplement as necessary. Monitor ins and outs. Maintain euvolemia. GI prophylaxis. DVT prophylaxis. Prognosis: Poor given patient's multiple co-morbidities. Condition: Critical Rest of plan per hospitalist and other consultants. A total of 35 minutes of critical care time was spent reviewing the patient record, examining the patient, making a diagnostic and therapeutic plan, discussing this plan with the medical personnel, following up on diagnostic studies and following the patient for clinical stability excluding any and all procedures. At least 50% of this time was spent in direct, [id number] contact. Thank you, LISA Garcia, for allowing me to participate in this patient's care. Further recommendations will depend on the patient's clinical course. Please do not hesitate to contact me if you have any questions or concerns. This medical document was created using an electronic medical record system with [employer] dictation system. Although these documentations are being carefully reviewed, there may still be some phonetic and typographical changes. The errors are purely typographical, due to imperfection on the software program, and do not reflect any compromise in the patient's medical care. Plan discussed with: Other (DAVID Potter) Critical Care Time(min): 35 NAE BELLAMY MD Jun 12, 2024 20:19
[2024-06-13] VITALS (104 sets, daily range): BP systolic 119–206; BP diastolic 42–74; PULSE 55–89; RESP 16–19; TEMP 97.3–99.1; O2SAT 93–100
[2024-06-13 06:13] LABS: Base Excess -0.2 mmol/L (-2.0-3.0)
[2024-06-13 06:34] LABS: Basophils # (auto) 0 10 ^3/uL (0-0.2); Basophils % (auto) 0.5 % (0.0-2.0); Eosinophils # (auto) 0.1 10 ^3/uL (0-0.8); Eosinophils % (auto) 3.1 % (0.0-7.0); Hematocrit 29.5 % (36.0-46.0); Hemoglobin 9.9 g/dL (12.2-16.2); Lymphocytes # (auto) 0.4 10 ^3/uL (0.4-5.4); Lymphocytes % (auto) 16.6 % (10.0-50.0); Mean Corpuscular Hemoglobin 29.7 pg (28.0-32.0); Mean Corpuscular Hgb Conc. 33.5 g/dL (32.0-36.0); Mean Corpuscular Volume 88.6 fL (80.0-100.0); Monocytes # (auto) 0.2 10 ^3/uL (0-1.3); Monocytes % (auto) 9.5 % (0.0-12.0); Neutrophils # (auto) 1.7 10 ^3/uL (1.6-8.6); Neutrophils % (auto) 70.3 % (37.0-80.0); Nucleated Red Blood Cells % 0.1 %; Platelet Count (auto) 120 10^3/uL (140-450); Red Blood Cells 3.33 10^6/uL (4.0-5.20); Red Cell Distribution Width 16.2 % (11.8-14.3); White Blood Cell 2.4 10^3/uL (4.4-10.8)
[2024-06-13 06:50] LABS: Calcium 9.2 mg/dL (8.7-10.4); Potassium 4.4 mmol/L (3.5-5.1)
[2024-06-13 06:51] LABS: Anion Gap 12 (5-15); Carbon Dioxide 24 mmol/L (20-31)
[2024-06-13 06:56] LABS: BUN/Creatinine Ratio 6.1 (10.0-20.0)
[2024-06-13] MEDS: SODIUM CHL 0.9% 1000 ML BAG XX ONE (07:00)
[2024-06-13 07:35] LABS: Blood Urea Nitrogen 44 mg/dL (9-23); Chloride 93 mmol/L (98-107); Glucose 63 mg/dL (74-106); Sodium 129 mmol/L (136-145)
[2024-06-13] MEDS: cefTRIAXone 1GM/50ML D5W 50 ML IV SCH (09:12)
--- NOTE | 2024-06-13 09:58 | DVHPN2 ---
Progress Note - Dictate Date Seen: Jun 13, 2024 Medical Necessity Reason Pt with a Central, PICC or Fol: Yes The following are medically ne: Eagle Catheter Reason for eagle catheter: Strict I&O Subjective Patient is intubated and sedated on ventilator. 30% FiO2. CPAP trial per pulmonary. vital signs Vital Sign Date Time Temp Pulse Resp B/P (MAP) Pulse Ox O2 Delivery O2 Flow Rate FiO2 06/13/24 09:27 60 18 172/57 (95) 98 30 06/13/24 09:15 98.2 208.8 06/13/24 08:00 Mechanical Ventilator+ Total Intake and Output 06/12/24 06/12/24 06/13/24 15:00 23:00 07:00 Intake Total 176 ml 623 ml 564 ml Output Total 0 ml Balance 176 ml 623 ml 564 ml medications Current Medications Medications Dose Ordered Sig/Eric Route Start Time Stop Time Status Last Admin Dose Admin Ondansetron HCl 4 mg Q4HP PRN IV 06/11/24 02:00 Nitroglycerin 0.4 mg Q5MINP PRN SL 06/11/24 02:00 Morphine Sulfate 2 mg Q30M PRN IV 06/11/24 02:00 Aspirin 81 mg DAILY PO 06/11/24 10:00 06/11/24 09:58 81 MG Atorvastatin Calcium 40 mg HS PO 06/11/24 22:00 06/12/24 21:45 40 MG Albuterol 2.5 mg Q4HPRN PRN NEB 06/11/24 02:00 Ipratropium [place] 0.5 mg Q4HPRN PRN NEB 06/11/24 02:00 Midazolam HCl 50 ml @ 1 mls/hr Q24H IV 06/11/24 02:15 06/13/24 06:30 7 MLS/HR Fentanyl Citrate 250 ml @ 2.5 mls/hr Q24H IV 06/11/24 02:15 06/12/24 23:08 15 MLS/HR Labetalol HCl 10 mg Q2HPRN PRN IV 06/11/24 04:30 Nicardipine HCl 250 ml @ 50 mls/hr Q5H IV 06/11/24 04:45 06/11/24 20:39 25 MLS/HR Insulin Human Regular Q6HR SC 06/11/24 06:00 Heparin Sodium (Porcine) 5,000 units Q12HR SC 06/11/24 10:00 06/12/24 21:45 5,000 UNITS Pantoprazole Sodium 40 mg DAILY IV 06/11/24 10:00 06/12/24 10:20 40 MG Dextrose 50 ml UD PRN IV 06/11/24 07:15 06/12/24 14:52 50 ML Vancomycin HCl 0 ml @ 0 mls/hr UD IV 06/11/24 12:45 Ceftriaxone Sodium 50 ml @ 100 mls/hr DAILY@09 IV 06/13/24 09:00 06/13/24 09:12 100 MLS/HR Acetaminophen 650 mg Q6HP PRN GT 06/11/24 23:45 06/12/24 02:48 650 MG Diagnostic Test (Pha) 1 strip Q2HR 06/12/24 08:00 06/13/24 09:07 1 STRIP Dextrose 1,000 ml @ 50 mls/hr Q20H IV 06/12/24 15:00 06/12/24 15:01 50 MLS/HR objective General Appearance: Severe distress, Other (Altered, not arousable,) HEENT: Other (Tongue noted to be swollen rolling into the back of her throat) Respiratory: Other (Intubated on mechanical ventilator) Cardiovascular: Regular rate, Normal S1, Normal S2 Abdominal: Normal bowel sounds, Soft, No tenderness Extremities: Other (BLE pitting edema 3+) Skin: No rashes Neuro: Other (Altered non arousable) Psych/Mental Status: Other (Unable to assess) laboratory and microbiology Laboratory Tests 06/13/24 05:51 Test 06/13/24 05:51 Range/Units Serum Glucose 63 L 74-106 mg/dL Assessment/Plan Patient is a 63-year-old female presents to the hospital with: Vertebral Discitis subacute CVA Acute encephalopathy Acute hypoxic respiratory S/P intubation on mechanical ventilator Leucopenia ESRD on HD Fluid overload Hypertensive emergency Hx T12 compression fracture Recommendations: Patient was on IV vancomycin as outpt. ; continue I do think there were any positive cultures, she was being treated empirically Continue IV Ceftriaxone and Vancomycin IV Monitor Vancomycin Trough, 06/12, Vancomycin Random is 40.3 WBC low, currently at 2.4; monitor on MV Antibiotic status: Ceftriaxone IV [Started on 06/11 - Ongoing] Vancomycin IV [Started on 06/11 - Ongoing] 06/11, Respiratory culture preliminary showed Normal Oropharyngeal Trish 06/11, Blood culture showed no growth 06/13, MRSA screening came back negative Review of Imagin/24, Chest x-ray showed Cardiomegaly with mild congestion. ( reviewed personally) Prognosis guarded plan discussed with Dr Mccollum Thank you for consult. Plan discussed with: GONZÁLEZ Vidal MD Jun 13, 2024 09:58
--- NOTE | 2024-06-13 11:58 | DVHPN2 ---
Progress Note - Dictate Date Seen: Jun 13, 2024 Medical Necessity Reason Pt with a Central, PICC or Fol: Yes The following are medically ne: Eagle Catheter Reason for eagle catheter: Strict I&O vital signs Vital Sign Date Time Temp Pulse Resp B/P (MAP) Pulse Ox O2 Delivery O2 Flow Rate FiO2 06/13/24 11:49 58 18 179/57 (97) 98 30 06/13/24 09:15 98.2 208.8 06/13/24 08:00 Mechanical Ventilator+ Total Intake and Output 06/12/24 06/12/24 06/13/24 15:00 23:00 07:00 Intake Total 176 ml 623 ml 564 ml Output Total 0 ml Balance 176 ml 623 ml 564 ml medications Current Medications Medications Dose Ordered Sig/Eric Route Start Time Stop Time Status Last Admin Dose Admin Ondansetron HCl 4 mg Q4HP PRN IV 06/11/24 02:00 Nitroglycerin 0.4 mg Q5MINP PRN SL 06/11/24 02:00 Morphine Sulfate 2 mg Q30M PRN IV 06/11/24 02:00 Aspirin 81 mg DAILY PO 06/11/24 10:00 06/13/24 11:17 81 MG Atorvastatin Calcium 40 mg HS PO 06/11/24 22:00 06/12/24 21:45 40 MG Albuterol 2.5 mg Q4HPRN PRN NEB 06/11/24 02:[address] 0.5 mg Q4HPRN PRN NEB 06/11/24 02:00 Midazolam HCl 50 ml @ 1 mls/hr Q24H IV 06/11/24 02:15 06/13/24 06:30 7 MLS/HR Fentanyl Citrate 250 ml @ 2.5 mls/hr Q24H IV 06/11/24 02:15 06/12/24 23:08 15 MLS/HR Labetalol HCl 10 mg Q2HPRN PRN IV 06/11/24 04:30 Nicardipine HCl 250 ml @ 50 mls/hr Q5H IV 06/11/24 04:45 06/11/24 20:39 25 MLS/HR Insulin Human Regular Q6HR SC 06/11/24 06:00 Heparin Sodium (Porcine) 5,000 units Q12HR SC 06/11/24 10:00 06/13/24 11:26 5,000 UNITS Pantoprazole Sodium 40 mg DAILY IV 06/11/24 10:00 06/13/24 11:16 40 MG Dextrose 50 ml UD PRN IV 06/11/24 07:15 06/12/24 14:52 50 ML Vancomycin HCl 0 ml @ 0 mls/hr UD IV 06/11/24 12:45 Ceftriaxone Sodium 50 ml @ 100 mls/hr DAILY@09 IV 06/13/24 09:00 06/13/24 09:12 100 MLS/HR Acetaminophen 650 mg Q6HP PRN GT 06/11/24 23:45 06/12/24 02:48 650 MG Diagnostic Test (Pha) 1 strip Q2HR 06/12/24 08:00 06/13/24 11:34 1 STRIP Dextrose 1,000 ml @ 50 mls/hr Q20H IV 06/12/24 15:00 06/13/24 11:32 50 MLS/HR laboratory and microbiology Laboratory Tests 06/13/24 05:51 Test 06/13/24 05:51 Range/Units Serum Glucose 63 L 74-106 mg/dL Assessment/Plan Impression: Acute hypoxic respiratory failure Altered mental status Acute CVA Acute encephalopathy ESRD, on hemodialysis Patient seen and examined in ICU Events: On mechanical ventilation S/p intubation PEEP 5, FiO2 30% Labs and imaging reviewed CXR reviewed, demonstrates cardiomegaly with mild congestion. Devices in place. ABG reviewed Plan: Vent support Titrate FIO2 to keep O2 saturation above 90%. VAP bundle. Daily ABG and CXR while intubated Sedate for ventilator synchrony Sedation holiday daily If patient follows commands, proceed to weaning trial Pressure support 08/23, extubate when ready Pressors as necessary for hemodynamic support Titrate to keep mean arterial pressure greater than 65 mmHg. HD per Nephrology Monitor renal function Monitor electrolytes. Supplement as necessary. Monitor ins and outs. Maintain euvolemia. GI prophylaxis. DVT prophylaxis. Critical care time 35 minutes Plan discussed with: Other (Rn) MECHE STEWARD MD Jun 13, 2024 11:58
--- NOTE | 2024-06-13 12:00 | DVHPN2 ---
Progress Note - Dictate Date Seen: Jun 13, 2024 Medical Necessity Reason Pt with a Central, PICC or Fol: Yes The following are medically ne: Eagle Catheter Reason for eagle catheter: Strict I&O Subjective Sedated vital signs Vital Sign Date Time Temp Pulse Resp B/P (MAP) Pulse Ox O2 Delivery O2 Flow Rate FiO2 06/13/24 11:49 58 18 179/57 (97) 98 30 06/13/24 09:15 98.2 208.8 06/13/24 08:00 Mechanical Ventilator+ Total Intake and Output 06/12/24 06/12/24 06/13/24 15:00 23:00 07:00 Intake Total 176 ml 623 ml 564 ml Output Total 0 ml Balance 176 ml 623 ml 564 ml medications Current Medications Medications Dose Ordered Sig/Eric Route Start Time Stop Time Status Last Admin Dose Admin Ondansetron HCl 4 mg Q4HP PRN IV 06/11/24 02:00 Nitroglycerin 0.4 mg Q5MINP PRN SL 06/11/24 02:00 Morphine Sulfate 2 mg Q30M PRN IV 06/11/24 02:00 Aspirin 81 mg DAILY PO 06/11/24 10:00 06/13/24 11:17 81 MG Atorvastatin Calcium 40 mg HS PO 06/11/24 22:00 06/12/24 21:45 40 MG Albuterol 2.5 mg Q4HPRN PRN NEB 06/11/24 02:00 Ipratropium [place] 0.5 mg Q4HPRN PRN NEB 06/11/24 02:00 Midazolam HCl 50 ml @ 1 mls/hr Q24H IV 06/11/24 02:15 06/13/24 06:30 7 MLS/HR Fentanyl Citrate 250 ml @ 2.5 mls/hr Q24H IV 06/11/24 02:15 06/12/24 23:08 15 MLS/HR Labetalol HCl 10 mg Q2HPRN PRN IV 06/11/24 04:30 Nicardipine HCl 250 ml @ 50 mls/hr Q5H IV 06/11/24 04:45 06/11/24 20:39 25 MLS/HR Insulin Human Regular Q6HR SC 06/11/24 06:00 Heparin Sodium (Porcine) 5,000 units Q12HR SC 06/11/24 10:00 06/13/24 11:26 5,000 UNITS Pantoprazole Sodium 40 mg DAILY IV 06/11/24 10:00 06/13/24 11:16 40 MG Dextrose 50 ml UD PRN IV 06/11/24 07:15 06/12/24 14:52 50 ML Vancomycin HCl 0 ml @ 0 mls/hr UD IV 06/11/24 12:45 Ceftriaxone Sodium 50 ml @ 100 mls/hr DAILY@09 IV 06/13/24 09:00 06/13/24 09:12 100 MLS/HR Acetaminophen 650 mg Q6HP PRN GT 06/11/24 23:45 06/12/24 02:48 650 MG Diagnostic Test (Pha) 1 strip Q2HR 06/12/24 08:00 06/13/24 11:34 1 STRIP Dextrose 1,000 ml @ 50 mls/hr Q20H IV 06/12/24 15:00 06/13/24 11:32 50 MLS/HR objective On mechanical ventilation Lungs Diminished air entry at bases CV:: RR, no pericardial rub Abdomen: soft, mildly distended, low BS Trace edema of legs laboratory and microbiology Laboratory Tests 06/13/24 05:51 Test 06/13/24 05:51 Range/Units Serum Glucose 63 L 74-106 mg/dL Problem List End-stage renal disease. From renal standpoint, she appears to be stable. HD on TTS schedule * Mild hyponatremia. We will avoid the use of hypotonic fluids. * Anemia of renal disease. Continue IV Epogen with dialysis. * She appears to be leukopenic, I suggest Hematology consultation. * Respiratory failure, on mechanical ventilation for airway protection. * Subacute stroke. * T-spine fracture. Plan discussed with: STEFANIE Fierro MD Jun 13, 2024 12:00
[2024-06-13] MEDS: LABETALOL HCL 20 MG/4 ML VL IV PRN (15:09)
--- NOTE | 2024-06-13 15:30 | DVHPN2 ---
Subjective Patient was remains intubated and sedated, currently on FiO2 30%. CPAP trial per Pulmonary. Reviewed: Care Plan Changes from previous H/P or p: No Changes Objective Vitals Vital Signs Date Time Temp Pulse Resp B/P (MAP) Pulse Ox O2 Delivery O2 Flow Rate FiO2 06/13/24 15:09 71 211/84 06/13/24 14:31 97.9 18 98 208.2 06/13/24 14:00 30 06/13/24 08:00 Mechanical Ventilator+ Intake/Output Intake and Output 06/13/24 07:00 Intake Total 1363 ml Output Total 0 ml Balance 1363 ml Intake Oral 60 ml IV Total 1303 ml Output Urine Total 0 ml # Bowel Movements 1 Exam HEENT pupils are reactive Neck is supple CV is S1-S2 regular rate and rhythm Respiratory diminished breath sound on provided lung bases GI posterior bowel sound Extremity no edema WOM[employer] [place] [employer] intubated and sedated Medications Current Medications Medications Dose Ordered Sig/Eric Route Start Time Stop Time Status Last Admin Dose Admin Ondansetron HCl 4 mg Q4HP PRN IV 06/11/24 02:00 Nitroglycerin 0.4 mg Q5MINP PRN SL 06/11/24 02:00 Morphine Sulfate 2 mg Q30M PRN IV 06/11/24 02:00 Aspirin 81 mg DAILY PO 06/11/24 10:00 06/13/24 11:17 81 MG Atorvastatin Calcium 40 mg HS PO 06/11/24 22:00 06/12/24 21:45 40 MG Albuterol 2.5 mg Q4HPRN PRN NEB 06/11/24 02:00 Ipratropium [place] 0.5 mg Q4HPRN PRN NEB 06/11/24 02:00 Midazolam HCl 50 ml @ 1 mls/hr Q24H IV 06/11/24 02:15 06/13/24 14:16 6 MLS/HR Fentanyl Citrate 250 ml @ 2.5 mls/hr Q24H IV 06/11/24 02:15 06/12/24 23:08 15 MLS/HR Labetalol HCl 10 mg Q2HPRN PRN IV 06/11/24 04:30 06/13/24 15:09 10 MG Nicardipine HCl 250 ml @ 50 mls/hr Q5H IV 06/11/24 04:45 06/11/24 20:39 25 MLS/HR Insulin Human Regular Q6HR SC 06/11/24 06:00 Heparin Sodium (Porcine) 5,000 units Q12HR SC 06/11/24 10:00 06/13/24 11:26 5,000 UNITS Pantoprazole Sodium 40 mg DAILY IV 06/11/24 10:00 06/13/24 11:16 40 MG Dextrose 50 ml UD PRN IV 06/11/24 07:15 06/12/24 14:52 50 ML Vancomycin HCl 0 ml @ 0 mls/hr UD IV 06/11/24 12:45 Ceftriaxone Sodium 50 ml @ 100 mls/hr DAILY@09 IV 06/13/24 09:00 06/13/24 09:12 100 MLS/HR Acetaminophen 650 mg Q6HP PRN GT 06/11/24 23:45 06/12/24 02:48 650 MG Diagnostic Test (Pha) 1 strip Q2HR 06/12/24 08:00 06/13/24 14:16 1 STRIP Dextrose 1,000 ml @ 50 mls/hr Q20H IV 06/12/24 15:00 06/13/24 11:32 50 MLS/HR Nicardipine HCl 250 ml @ 50 mls/hr Q5H IV 06/13/24 14:45 UNV Laboratory Results Laboratory Tests 06/13/24 05:51 Chemistry Test 06/13/24 05:51 Calcium Level 9.2 mg/dL (8.7-10.4) Urinalysis Test 06/11/24 03:00 Urine Color Light-yellow (Yellow) Urine Clarity Turbid (Clear) H Urine pH 8.0 (5.0-9.0) Urine Specific [place] 1.008 (1.001-1.035) Urine Protein 3+ (Negative) H Urine Ketones Negative (Negative) Urine Blood Negative /uL (Negative) Urine Nitrite Negative (Negative) Urine Bilirubin Negative (Negative) Urine Urobilinogen Normal mg/dL (Negative) Urine Leukocyte Esterase 1+ /uL (Negative) Urine RBC 10 /hpf (0 - 4) Urine Microscopic WBC 41 /HPF (0-5) H Urine Squamous Epithelial Cells Mod /hpf (<5) Urine Bacteria None seen /hpf (None Seen) Urine Glucose 2+ mg/dL (Normal) H Blood Gas Results Test 06/13/24 06:06 Arterial Blood pH 7.506 (7.350-7.450) FiO2 % 30.0 Microbiology Microbiology Date/Time Source Procedure Growth Status 06/11/24 23:55 Blood Blood Culture - Preliminary NO GROWTH AFTER 24 HOURS OF INCUBATION. Resulted 06/11/24 02:07 Trachea Gram Stain - Final Resulted 06/11/24 02:07 Trachea Respiratory Culture - Preliminary Resulted Assessment/Plan Assessment/Plan 63-year-old female with a known history of hypertension, dyslipidemia, coronary artery disease, anxiety disorder, recent mechanical fall found to have acute small T12 compression fracture, L3-4 lumbar diskitis presented to the hospital with right-sided weakness altered mental status eventually intubated in the ER for airway protection. Patient was found to have acute/subacute left frontal and temporal infarct currently MRI brain is pending. 1. Acute hypoxic respiratory failure requiring intubation with mechanical ventilation secondary to metabolic encephalopathy 2. Metabolic encephalopathy rule out acute CVA 3.Subacute CVA with the left frontal and temporal infarct, MRI brain shows no evidence of acute infarct 4. Hypertensive emergency with the end-organ involvement , off the nicardipine drip 5. End-stage renal disease on hemodialysis 6. Coronary artery disease 7. L3-4 lumbar diskitis/osteomyelitis, resume IV vancomycin and consult infectious disease specialist 8. Recurrent hypoglycemia, start D5W -continue IV antibiotics follow up MRI brain showed no evidence of acute infarct, patient was remains critical prognosis-remained guarded -plan of care discussed with the bedside RN. Plan discussed with: Other My Orders Orders - BENJA ROBBINS MD Procedure Category Date Status Time Mrsa Screen JUSTICE 06/13/24 In Process 08:56 Vancomycin,Random LAB 06/14/24 Verified 05:00 Date of Service: Jun 13, 2024 Billing Provider: BENJA ROBBINS MD Common Visit Codes: NOT BILLABLE BENJA ROBBINS MD Jun 13, 2024 15:30
--- NOTE | 2024-06-13 17:39 | DVHPN2 ---
Consult Progress Note Subjective Other Systems: Patient in normal sinus rhythm on special events assistant Objective vital signs Vital Sign Date Time Temp Pulse Resp B/P (MAP) Pulse Ox O2 Delivery O2 Flow Rate FiO2 06/13/24 17:00 98.2 82 18 147/54 (85) 97 208.8 06/13/24 16:18 30 06/13/24 08:00 Mechanical Ventilator+ Total Intake and Output 06/12/24 06/12/24 06/13/24 15:00 23:00 07:00 Intake Total 176 ml 623 ml 636 ml Output Total 0 ml Balance 176 ml 623 ml 636 ml medications Current Medications Medications Dose Ordered Sig/Eric Route Start Time Stop Time Status Last Admin Dose Admin Ondansetron HCl 4 mg Q4HP PRN IV 06/11/24 02:00 Nitroglycerin 0.4 mg Q5MINP PRN SL 06/11/24 02:00 Morphine Sulfate 2 mg Q30M PRN IV 06/11/24 02:00 Aspirin 81 mg DAILY PO 06/11/24 10:00 06/13/24 11:17 81 MG Atorvastatin Calcium 40 mg HS PO 06/11/24 22:00 06/12/24 21:45 40 MG Albuterol 2.5 mg Q4HPRN PRN NEB 06/11/24 02:00 Ipratropium [place] 0.5 mg Q4HPRN PRN NEB 06/11/24 02:00 Midazolam HCl 50 ml @ 1 mls/hr Q24H IV 06/11/24 02:15 06/13/24 14:16 6 MLS/HR Fentanyl Citrate 250 ml @ 2.5 mls/hr Q24H IV 06/11/24 02:15 06/12/24 23:08 15 MLS/HR Labetalol HCl 10 mg Q2HPRN PRN IV 06/11/24 04:30 06/13/24 15:09 10 MG Nicardipine HCl 250 ml @ 50 mls/hr Q5H IV 06/11/24 04:45 06/13/24 15:30 50 MLS/HR Insulin Human Regular Q6HR SC 06/11/24 06:00 Heparin Sodium (Porcine) 5,000 units Q12HR SC 06/11/24 10:00 06/13/24 11:26 5,000 UNITS Pantoprazole Sodium 40 mg DAILY IV 06/11/24 10:00 06/13/24 11:16 40 MG Dextrose 50 ml UD PRN IV 06/11/24 07:15 06/12/24 14:52 50 ML Vancomycin HCl 0 ml @ 0 mls/hr UD IV 06/11/24 12:45 Ceftriaxone Sodium 50 ml @ 100 mls/hr DAILY@09 IV 06/13/24 09:00 06/13/24 09:12 100 MLS/HR Acetaminophen 650 mg Q6HP PRN GT 06/11/24 23:45 06/12/24 02:48 650 MG Diagnostic Test (Pha) 1 strip Q2HR 06/12/24 08:00 06/13/24 16:00 1 STRIP Dextrose 1,000 ml @ 50 mls/hr Q20H IV 06/12/24 15:00 06/13/24 11:32 50 MLS/HR Nicardipine HCl 250 ml @ 50 mls/hr Q5H IV 06/13/24 14:45 UNV Examination: GENERAL:Abnormal, LUNGS:Abnormal (Mechanically ventilated), CVS:Normal, NEURO:Abnormal (Chemically sedated) laboratory and microbiology Laboratory Tests 06/13/24 05:51 Test 06/13/24 05:51 Range/Units Serum Glucose 63 L 74-106 mg/dL Problem List/Assessment/Plan Problem List/Assessment/Plan Acute CVA Hypertensive emergency Questionable coronary artery disease Moderate pericardial effusion Acute hypoxic respiratory failure End-stage renal disease on hemodialysis History of T12 compression fracture Plan/Recommendation We will continue with the following plan/recommendations (Dr. Julio): * Transthoracic echocardiogram reveals EF 50-55% with moderate pericardial effusion with no evidence of tamponade * Aggressive blood pressure control, as per neurology recommendations (permissive hypertension) * Lipid-lowering agent * Close Cardiac surveillance * Nephrology consult and recommendations Patient seen and examined at bedside with . Thank you for allowing us to care for this patient. Please call with any questions or concerns. Critical care time spent: 37 minutes.This medical document was created using an electronic medical record system with voice recognition software and computerized dictation system. Although this document has been carefully reviewed, there might still be some phonetic and typographical errors. Occasional wrong-word or ``sound-alike substitutions may have occurred due to the inherent limitations of voice recognition software. These areas are purely typographical due to imperfections of the software programs and do not reflect any compromise in the patient's medical care. Please read the chart carefully and recognize, using context, where these substitutions have occurred. Plan discussed with: Other Date of Service: Jun 13, 2024 Billing Provider: CHALINO MAYFIELD Common Visit Codes: [id number] CARE 30-74 MIN CHALINO MAYFIELD Jun 13, 2024 17:39
--- NOTE | 2024-06-13 22:20 | DVHPN2 ---
Consult Progress Note Subjective Other Systems: Patient was seen and evaluated in follow up in the ICU. Patient is intubated and sedated on ventilator. 30% FiO2. Patient in normal sinus rhythm on animal ride attendant. HGB 9.9, HCT 29.5. Objective vital signs Vital Sign Date Time Temp Pulse Resp B/P (MAP) Pulse Ox O2 Delivery O2 Flow Rate FiO2 06/13/24 22:00 81 18 133/52 (79) 97 30 06/13/24 21:15 98.6 209.5 06/13/24 20:30 Mechanical Ventilator+ Total Intake and Output 06/12/24 06/12/24 06/13/24 15:00 23:00 07:00 Intake Total 176 ml 623 ml 636 ml Output Total 0 ml Balance 176 ml 623 ml 636 ml medications Current Medications Medications Dose Ordered Sig/Eric Route Start Time Stop Time Status Last Admin Dose Admin Ondansetron HCl 4 mg Q4HP PRN IV 06/11/24 02:00 Nitroglycerin 0.4 mg Q5MINP PRN SL 06/11/24 02:00 Morphine Sulfate 2 mg Q30M PRN IV 06/11/24 02:00 Aspirin 81 mg DAILY PO 06/11/24 10:00 06/13/24 11:17 81 MG Atorvastatin Calcium 40 mg HS PO 06/11/24 22:00 06/13/24 21:37 40 MG Albuterol 2.5 mg Q4HPRN PRN NEB 06/11/24 02:00 Ipratropium [place] 0.5 mg Q4HPRN PRN NEB 06/11/24 02:00 Midazolam HCl 50 ml @ 1 mls/hr Q24H IV 06/11/24 02:15 06/13/24 21:38 6 MLS/HR Fentanyl Citrate 250 ml @ 2.5 mls/hr Q24H IV 06/11/24 02:15 06/13/24 20:23 7.5 MLS/HR Labetalol HCl 10 mg Q2HPRN PRN IV 06/11/24 04:30 06/13/24 15:09 10 MG Nicardipine HCl 250 ml @ 50 mls/hr Q5H IV 06/11/24 04:45 06/13/24 19:31 50 MLS/HR Insulin Human Regular Q6HR SC 06/11/24 06:00 Heparin Sodium (Porcine) 5,000 units Q12HR SC 06/11/24 10:00 06/13/24 21:38 5,000 UNITS Pantoprazole Sodium 40 mg DAILY IV 06/11/24 10:00 06/13/24 11:16 40 MG Dextrose 50 ml UD PRN IV 06/11/24 07:15 06/12/24 14:52 50 ML Vancomycin HCl 0 ml @ 0 mls/hr UD IV 06/11/24 12:45 Ceftriaxone Sodium 50 ml @ 100 mls/hr DAILY@09 IV 06/13/24 09:00 06/13/24 09:12 100 MLS/HR Acetaminophen 650 mg Q6HP PRN GT 06/11/24 23:45 06/12/24 02:48 650 MG Diagnostic Test (Pha) 1 strip Q2HR 06/12/24 08:00 06/13/24 21:54 1 STRIP Dextrose 1,000 ml @ 50 mls/hr Q20H IV 06/12/24 15:00 06/13/24 11:32 50 MLS/HR Nicardipine HCl 250 ml @ 50 mls/hr Q5H IV 06/13/24 14:45 UNV Examination: GENERAL:Abnormal (Ill appearing, intubated ), LUNGS:Abnormal (Mechanically ventilated), CVS:Normal, NEURO:Abnormal (sedated ) laboratory and microbiology Laboratory Tests 06/13/24 05:51 Test 06/13/24 05:51 Range/Units Serum Glucose 63 L 74-106 mg/dL Problem List/Assessment/Plan Problem List/Assessment/Plan Problem List/Assessment/Plan Acute CVA. Hypertensive emergency. Questionable coronary artery disease. Moderate pericardial effusion. Acute hypoxic respiratory failure. End-stage renal disease on hemodialysis. History of T12 compression fracture. Plan/Recommendation Continued all current supportive medical care. Patient has been seen by Hedy Chun NP on my behalf, her and I discussed the plan with the patient. Transthoracic echocardiogram reveals EF 50-55% with moderate pericardial effusion with no evidence of tamponade. Aggressive blood pressure control, as per neurology recommendations (permissive hypertension). Lipid-lowering agent. Close Cardiac surveillance. Nephrology consult and recommendations. Additional plan as per the hospital course. Plan discussed with: Other Date of Service: Jun 13, 2024 Billing Provider: SHAUN RAMOS MD Cardiology Common Codes: [id number] SHAUN RAMOS MD Jun 13, 2024 22:15
[2024-06-14] VITALS (103 sets, daily range): BP systolic 101–176; BP diastolic 36–63; PULSE 62–89; RESP 15–19; TEMP 97.2–99.3; O2SAT 95–100
[2024-06-14 04:18] LABS: Basophils # (auto) 0 10 ^3/uL (0-0.2); Basophils % (auto) 0.3 % (0.0-2.0); Eosinophils # (auto) 0 10 ^3/uL (0-0.8); Eosinophils % (auto) 1.7 % (0.0-7.0); Hematocrit 27.1 % (36.0-46.0); Hemoglobin 9.3 g/dL (12.2-16.2); Lymphocytes # (auto) 0.4 10 ^3/uL (0.4-5.4); Lymphocytes % (auto) 14.3 % (10.0-50.0); Mean Corpuscular Hemoglobin 29.8 pg (28.0-32.0); Mean Corpuscular Hgb Conc. 34.3 g/dL (32.0-36.0); Monocytes # (auto) 0.2 10 ^3/uL (0-1.3); Monocytes % (auto) 8.5 % (0.0-12.0); Neutrophils % (auto) 75.2 % (37.0-80.0); Nucleated Red Blood Cells % 0.1 %; Platelet Count (auto) 122 10^3/uL (140-450); Red Blood Cells 3.12 10^6/uL (4.0-5.20); Red Cell Distribution Width 16.3 % (11.8-14.3); White Blood Cell 2.6 10^3/uL (4.4-10.8)
[2024-06-14 04:24] LABS: Calcium 8.7 mg/dL (8.7-10.4); Potassium 4.8 mmol/L (3.5-5.1)
[2024-06-14 04:25] LABS: Anion Gap 12 (5-15); Carbon Dioxide 23 mmol/L (20-31)
[2024-06-14 04:30] LABS: BUN/Creatinine Ratio 6.3 (10.0-20.0); Glucose 90 mg/dL (74-106)
[2024-06-14 04:53] LABS: Blood Urea Nitrogen 47 mg/dL (9-23); Chloride 90 mmol/L (98-107); Sodium 125 mmol/L (136-145)
--- NOTE | 2024-06-14 06:46 | DVH ---
CHEST RADIOGRAPH Indication: INTUBATED Technique: Single frontal view of the chest was obtained COMPARISON: XY CHEST PORTABLE on DOS: 06/12/24, XY CHEST XRAY 1 VIEW on DOS: 06/11/24, XY CHEST PORTABL E on DOS: 06/10/24 FINDINGS: Lines and Tubes: Unchanged. Lungs: Mild persistent increased prominence of the pulmonary vasculature. No evidence of focal consol idation. Pleura: No effusion. No pneumothorax. Cardiomediastinal contours: Stable mild cardiomegaly. Bones: Unremarkable IMPRESSION: 1. Stable mild increased prominence of the pulmonary vasculature and cardiomegaly. 2. Lines and tubes unchanged.
[2024-06-14 06:49] LABS: Base Excess 0.9 mmol/L (-2.0-3.0)
--- NOTE | 2024-06-14 09:43 | DVHPN2 ---
Progress Note - Dictate Date Seen: Jun 14, 2024 Medical Necessity Reason Pt with a Central, PICC or Fol: Yes The following are medically ne: Eagle Catheter Reason for eagle catheter: Strict I&O Subjective Patient remains intubated and sedated, patient's became hyponatremic. Hemodialysis today. vital signs Vital Sign Date Time Temp Pulse Resp B/P (MAP) Pulse Ox O2 Delivery O2 Flow Rate FiO2 06/14/24 07:56 70 18 120/41 (67) 97 30 06/14/24 07:00 99.1 210.4 06/13/24 20:30 Mechanical Ventilator+ Total Intake and Output 06/13/24 06/13/24 06/14/24 15:00 23:00 07:00 Intake Total 531.0 ml 1008.0 ml 608.0 ml Output Total 10 ml 31 ml Balance 531.0 ml 998.0 ml 577.0 ml medications Current Medications Medications Dose Ordered Sig/Eric Route Start Time Stop Time Status Last Admin Dose Admin Ondansetron HCl 4 mg Q4HP PRN IV 06/11/24 02:00 Nitroglycerin 0.4 mg Q5MINP PRN SL 06/11/24 02:00 Morphine Sulfate 2 mg Q30M PRN IV 06/11/24 02:00 Aspirin 81 mg DAILY PO 06/11/24 10:00 06/13/24 11:17 81 MG Atorvastatin Calcium 40 mg HS PO 06/11/24 22:00 06/13/24 21:37 40 MG Albuterol 2.5 mg Q4HPRN PRN NEB 06/11/24 02:00 Ipratropium [place] 0.5 mg Q4HPRN PRN NEB 06/11/24 02:00 Midazolam HCl 50 ml @ 1 mls/hr Q24H IV 06/11/24 02:15 06/14/24 05:37 6 MLS/HR Fentanyl Citrate 250 ml @ 2.5 mls/hr Q24H IV 06/11/24 02:15 06/13/24 20:23 7.5 MLS/HR Labetalol HCl 10 mg Q2HPRN PRN IV 06/11/24 04:30 06/13/24 15:09 10 MG Nicardipine HCl 250 ml @ 50 mls/hr Q5H IV 06/11/24 04:45 06/13/24 19:31 50 MLS/HR Insulin Human Regular Q6HR SC 06/11/24 06:00 Heparin Sodium (Porcine) 5,000 units Q12HR SC 06/11/24 10:00 06/13/24 21:38 5,000 UNITS Pantoprazole Sodium 40 mg DAILY IV 06/11/24 10:00 06/13/24 11:16 40 MG Dextrose 50 ml UD PRN IV 06/11/24 07:15 06/12/24 14:52 50 ML Vancomycin HCl 0 ml @ 0 mls/hr UD IV 06/11/24 12:45 Ceftriaxone Sodium 50 ml @ 100 mls/hr DAILY@09 IV 06/13/24 09:00 06/14/24 08:09 100 MLS/HR Acetaminophen 650 mg Q6HP PRN GT 06/11/24 23:45 06/12/24 02:48 650 MG Diagnostic Test (Pha) 1 strip Q2HR 06/12/24 08:00 06/14/24 08:10 1 STRIP Dextrose 1,000 ml @ 50 mls/hr Q20H IV 06/12/24 15:00 06/14/24 05:38 50 MLS/HR Nicardipine HCl 250 ml @ 50 mls/hr Q5H IV 06/13/24 14:45 UNV objective General Appearance: Severe distress, Other (Altered, not arousable,) HEENT: Other (Tongue noted to be swollen rolling into the back of her throat) Respiratory: Other (Intubated on mechanical ventilator) Cardiovascular: Regular rate, Normal S1, Normal S2 Abdominal: Normal bowel sounds, Soft, No tenderness Extremities: Other (BLE pitting edema 3+) Skin: No rashes Neuro: Other (Altered non arousable) Psych/Mental Status: Other (Unable to assess) laboratory and microbiology Laboratory Tests 06/14/24 03:05 Test 06/14/24 03:05 Range/Units Serum Glucose 90 74-106 mg/dL Assessment/Plan Patient is a 63-year-old female presents to the hospital with: Vertebral Discitis subacute CVA Acute encephalopathy Acute hypoxic respiratory S/P intubation on mechanical ventilator Leucopenia ESRD on HD Fluid overload Hypertensive emergency Hx T12 compression fracture Recommendations: Patient was on IV vancomycin as outpt. ; continue I do think there were any positive cultures, she was being treated empirically Continue IV Ceftriaxone and Vancomycin IV Monitor Vancomycin Trough, on HD 06/14, Vancomycin Random is 33.2 WBC is trending down, unclear etiology on MV Antibiotic status: Ceftriaxone IV [Started on 06/11 - Ongoing] Vancomycin IV [Started on 06/11 - Ongoing] 06/11, Respiratory culture preliminary showed Normal Oropharyngeal Trish 06/11, Blood culture showed no growth 06/13, MRSA screening came back negative Review of Imagin/24, Chest x-ray showed Cardiomegaly with mild congestion. ( reviewed personally) Prognosis guarded plan discussed with Dr Mccollum Thank you for consult. Plan discussed with: GONZÁLEZ Vidal MD Jun 14, 2024 09:43
--- NOTE | 2024-06-14 10:33 | DVHPN2 ---
Progress Note - Dictate Date Seen: Jun 14, 2024 Medical Necessity Reason Pt with a Central, PICC or Fol: Yes The following are medically ne: Eagle Catheter Reason for eagle catheter: Strict I&O vital signs Vital Sign Date Time Temp Pulse Resp B/P (MAP) Pulse Ox O2 Delivery O2 Flow Rate FiO2 06/14/24 09:45 99.3 89 18 144/50 (81) 97 210.7 06/14/24 09:45 30 06/14/24 08:00 Mechanical Ventilator+ Total Intake and Output 06/13/24 06/13/24 06/14/24 15:00 23:00 07:00 Intake Total 531.0 ml 1008.0 ml 608.0 ml Output Total 10 ml 31 ml Balance 531.0 ml 998.0 ml 577.0 ml medications Current Medications Medications Dose Ordered Sig/Eric Route Start Time Stop Time Status Last Admin Dose Admin Ondansetron HCl 4 mg Q4HP PRN IV 06/11/24 02:00 Nitroglycerin 0.4 mg Q5MINP PRN SL 06/11/24 02:00 Morphine Sulfate 2 mg Q30M PRN IV 06/11/24 02:00 Aspirin 81 mg DAILY PO 06/11/24 10:00 06/13/24 11:17 81 MG Atorvastatin Calcium 40 mg HS PO 06/11/24 22:00 06/13/24 21:37 40 MG Albuterol 2.5 mg Q4HPRN PRN NEB 06/11/24 02:00 Ipratropium [place] 0.5 mg Q4HPRN PRN NEB 06/11/24 02:00 Midazolam HCl 50 ml @ 1 mls/hr Q24H IV 06/11/24 02:15 06/14/24 05:37 6 MLS/HR Fentanyl Citrate 250 ml @ 2.5 mls/hr Q24H IV 06/11/24 02:15 06/13/24 20:23 7.5 MLS/HR Labetalol HCl 10 mg Q2HPRN PRN IV 06/11/24 04:30 06/13/24 15:09 10 MG Nicardipine HCl 250 ml @ 50 mls/hr Q5H IV 06/11/24 04:45 06/13/24 19:31 50 MLS/HR Insulin Human Regular Q6HR SC 06/11/24 06:00 Heparin Sodium (Porcine) 5,000 units Q12HR SC 06/11/24 10:00 06/13/24 21:38 5,000 UNITS Pantoprazole Sodium 40 mg DAILY IV 06/11/24 10:00 06/13/24 11:16 40 MG Dextrose 50 ml UD PRN IV 06/11/24 07:15 06/12/24 14:52 50 ML Vancomycin HCl 0 ml @ 0 mls/hr UD IV 06/11/24 12:45 Ceftriaxone Sodium 50 ml @ 100 mls/hr DAILY@09 IV 06/13/24 09:00 06/14/24 08:09 100 MLS/HR Acetaminophen 650 mg Q6HP PRN GT 06/11/24 23:45 06/12/24 02:48 650 MG Diagnostic Test (Pha) 1 strip Q2HR 06/12/24 08:00 06/14/24 08:10 1 STRIP Dextrose 1,000 ml @ 50 mls/hr Q20H IV 06/12/24 15:00 06/14/24 05:38 50 MLS/HR Nicardipine HCl 250 ml @ 50 mls/hr Q5H IV 06/13/24 14:45 UNV laboratory and microbiology Laboratory Tests 06/14/24 03:05 Test 06/14/24 03:05 Range/Units Serum Glucose 90 74-106 mg/dL Assessment/Plan Impression: Acute hypoxic respiratory failure Altered mental status Acute CVA Acute encephalopathy ESRD, on hemodialysis Patient seen and examined in ICU Events: On mechanical ventilation S/p intubation PEEP 5, FiO2 30% Labs and imaging reviewed CXR reviewed, demonstrates cardiomegaly with mild congestion. Devices in place. ABG reviewed events tongue swelling reported by RN Plan: Vent support Titrate FIO2 to keep O2 saturation above 90%. VAP bundle. Daily ABG and CXR while intubated Sedate for ventilator synchrony Sedation holiday daily If patient follows commands, proceed to weaning trial Pressure support 08/23, extubate when ready Pressors as necessary for hemodynamic support Titrate to keep mean arterial pressure greater than 65 mmHg. HD per Nephrology Monitor renal function Monitor electrolytes. Supplement as necessary. Monitor ins and outs. Maintain euvolemia. GI prophylaxis. DVT prophylaxis. Critical care time 35 minutes Plan discussed with: Other (rn) MECHE STEWARD MD Jun 14, 2024 10:33
[2024-06-14] MEDS: SODIUM CHL 0.9% 1000 ML BAG XX ONE (11:15)
--- NOTE | 2024-06-14 11:21 | DVHPN2 ---
Progress Note - Dictate Date Seen: Jun 14, 2024 Medical Necessity Reason Pt with a Central, PICC or Fol: Yes The following are medically ne: Eagle Catheter Reason for eagle catheter: Strict I&O Subjective Sedated vital signs Vital Sign Date Time Temp Pulse Resp B/P (MAP) Pulse Ox O2 Delivery O2 Flow Rate FiO2 06/14/24 09:45 99.3 89 18 144/50 (81) 97 210.7 06/14/24 09:45 30 06/14/24 08:00 Mechanical Ventilator+ Total Intake and Output 06/13/24 06/13/24 06/14/24 15:00 23:00 07:00 Intake Total 531.0 ml 1008.0 ml 608.0 ml Output Total 10 ml 31 ml Balance 531.0 ml 998.0 ml 577.0 ml medications Current Medications Medications Dose Ordered Sig/Eric Route Start Time Stop Time Status Last Admin Dose Admin Ondansetron HCl 4 mg Q4HP PRN IV 06/11/24 02:00 Nitroglycerin 0.4 mg Q5MINP PRN SL 06/11/24 02:00 Morphine Sulfate 2 mg Q30M PRN IV 06/11/24 02:00 Aspirin 81 mg DAILY PO 06/11/24 10:00 06/13/24 11:17 81 MG Atorvastatin Calcium 40 mg HS PO 06/11/24 22:00 06/13/24 21:37 40 MG Albuterol 2.5 mg Q4HPRN PRN NEB 06/11/24 02:00 Ipratropium [place] 0.5 mg Q4HPRN PRN NEB 06/11/24 02:00 Midazolam HCl 50 ml @ 1 mls/hr Q24H IV 06/11/24 02:15 06/14/24 05:37 6 MLS/HR Fentanyl Citrate 250 ml @ 2.5 mls/hr Q24H IV 06/11/24 02:15 06/13/24 20:23 7.5 MLS/HR Labetalol HCl 10 mg Q2HPRN PRN IV 06/11/24 04:30 06/13/24 15:09 10 MG Nicardipine HCl 250 ml @ 50 mls/hr Q5H IV 06/11/24 04:45 06/13/24 19:31 50 MLS/HR Insulin Human Regular Q6HR SC 06/11/24 06:00 Heparin Sodium (Porcine) 5,000 units Q12HR SC 06/11/24 10:00 06/13/24 21:38 5,000 UNITS Pantoprazole Sodium 40 mg DAILY IV 06/11/24 10:00 06/13/24 11:16 40 MG Dextrose 50 ml UD PRN IV 06/11/24 07:15 06/12/24 14:52 50 ML Vancomycin HCl 0 ml @ 0 mls/hr UD IV 06/11/24 12:45 Ceftriaxone Sodium 50 ml @ 100 mls/hr DAILY@09 IV 06/13/24 09:00 06/14/24 08:09 100 MLS/HR Acetaminophen 650 mg Q6HP PRN GT 06/11/24 23:45 06/12/24 02:48 650 MG Diagnostic Test (Pha) 1 strip Q2HR 06/12/24 08:00 06/14/24 10:00 1 STRIP Dextrose 1,000 ml @ 50 mls/hr Q20H IV 06/12/24 15:00 06/14/24 05:38 50 MLS/HR Nicardipine HCl 250 ml @ 50 mls/hr Q5H IV 06/13/24 14:45 UNV objective On mechanical ventilation Lungs Diminished air entry at bases CV:: RR, no pericardial rub Abdomen: soft, mildly distended, low BS Trace edema of legs laboratory and microbiology Laboratory Tests 06/14/24 03:05 Test 06/14/24 03:05 Range/Units Serum Glucose 90 74-106 mg/dL Problem List End-stage renal disease. From renal standpoint, she appears to be stable. HD on TTS schedule * Hyponatremia is worse due to patient getting D5W for hypoglycemia. We should avoid the use of hypotonic fluids. Will switch IVF to D5.NS * Anemia of renal disease. Continue IV Epogen with dialysis. * She appears to be leukopenic, I suggest Hematology consultation. * Respiratory failure, on mechanical ventilation for airway protection. * Subacute stroke. * T-spine fracture. Dietary Evaluation Review Comments: 1) If patient remains NPO > 7 days, consider EN/TPN to meet at least 75% estimated needs 2) If GI route is preferred, consider Nepro @ 25 mL/hr goal rate as tolerated. EN regimen will provide 1080 kcals, 49g Pro, and 447 mL free H2O per 24 hrs. EN regimen will meet ~90% estimated daily energy needs and ~47% estimated daily protein needs 3) Initiate Nephro-Susan @ 1 tb qd 4) [facility] diet when medically feasible, pending [facility] approval 5) Follow-up with nephrology, cardiology, and pulmonology 6) Continue to monitor I&O, labs, and skin integrity Expected Outcomes/Goals: 1) patient to receive nutrition support within 7 days of NPO status 2) labs to improve 3) wound to improve 4) patient to be extubated and diet to advance 5) f/u in 2-3 days Plan discussed with: Other STEFANIE SAMUEL MD Jun 14, 2024 11:21
[2024-06-14] MEDS: D5W/SOD CHLO 0.9% 1,000 ML IV SCH (11:30)
[2024-06-14] MEDS: ACCU-CHEK COMFORT CURVE STRIP VI SCH (14:00)
--- NOTE | 2024-06-14 14:12 | DVHPN2 ---
Subjective Patient was remains intubated and sedated, patient's became hyponatremic, change IV fluids from D5W to D5 NS at 50 mL/hour. Hemodialysis per Nephrology. Reviewed: Care Plan Changes from previous H/P or p: No Changes Objective Vitals Vital Signs Date Time Temp Pulse Resp B/P (MAP) Pulse Ox O2 Delivery O2 Flow Rate FiO2 06/14/24 13:45 97.3 81 18 120/43 (68) 98 207.1 06/14/24 13:32 30 06/14/24 08:00 Mechanical Ventilator+ Intake/Output Intake and Output 06/14/24 07:00 Intake Total 2197.0 ml Output Total 41 ml Balance 2156.0 ml Intake Oral 60 ml IV Total 2137.0 ml Output Urine Total 41 ml Stool Total 0 ml Exam HEENT pupils are reactive , positive scleral edema, positive tongue swelling 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 no edema 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 Medications Current Medications Medications Dose Ordered Sig/Eric Route Start Time Stop Time Status Last Admin Dose Admin Ondansetron HCl 4 mg Q4HP PRN IV 06/11/24 02:00 Nitroglycerin 0.4 mg Q5MINP PRN SL 06/11/24 02:00 Morphine Sulfate 2 mg Q30M PRN IV 06/11/24 02:00 Aspirin 81 mg DAILY PO 06/11/24 10:00 06/13/24 11:17 81 MG Atorvastatin Calcium 40 mg HS PO 06/11/24 22:00 06/13/24 21:37 40 MG Albuterol 2.5 mg Q4HPRN PRN NEB 06/11/24 02:00 Ipratropium [place] 0.5 mg Q4HPRN PRN NEB 06/11/24 02:00 Midazolam HCl 50 ml @ 1 mls/hr Q24H IV 06/11/24 02:15 06/14/24 05:37 6 MLS/HR Fentanyl Citrate 250 ml @ 2.5 mls/hr Q24H IV 06/11/24 02:15 06/13/24 20:23 7.5 MLS/HR Labetalol HCl 10 mg Q2HPRN PRN IV 06/11/24 04:30 06/13/24 15:09 10 MG Nicardipine HCl 250 ml @ 50 mls/hr Q5H IV 06/11/24 04:45 06/13/24 19:31 50 MLS/HR Heparin Sodium (Porcine) 5,000 units Q12HR SC 06/11/24 10:00 06/13/24 21:38 5,000 UNITS Pantoprazole Sodium 40 mg DAILY IV 06/11/24 10:00 06/13/24 11:16 40 MG Dextrose 50 ml UD PRN IV 06/11/24 07:15 06/12/24 14:52 50 ML Vancomycin HCl 0 ml @ 0 mls/hr UD IV 06/11/24 12:45 Ceftriaxone Sodium 50 ml @ 100 mls/hr DAILY@09 IV 06/13/24 09:00 06/14/24 08:09 100 MLS/HR Acetaminophen 650 mg Q6HP PRN GT 06/11/24 23:45 06/12/24 02:48 650 MG Nicardipine HCl 250 ml @ 50 mls/hr Q5H IV 06/13/24 14:45 UNV Dextrose/Sodium Chloride 1,000 ml @ 50 mls/hr Q20H IV 06/14/24 11:30 Diagnostic Test (Pha) 1 strip Q4HR 06/14/24 14:00 Laboratory Results Laboratory Tests 06/14/24 03:05 Chemistry Test 06/14/24 03:05 Calcium Level 8.7 mg/dL (8.7-10.4) Urinalysis Test 06/11/24 03:00 Urine Color Light-yellow (Yellow) Urine Clarity Turbid (Clear) H Urine pH 8.0 (5.0-9.0) Urine Specific Carbon 1.008 (1.001-1.035) Urine Protein 3+ (Negative) H Urine Ketones Negative (Negative) Urine Blood Negative /uL (Negative) Urine Nitrite Negative (Negative) Urine Bilirubin Negative (Negative) Urine Urobilinogen Normal mg/dL (Negative) Urine Leukocyte Esterase 1+ /uL (Negative) Urine RBC 10 /hpf (0 - 4) Urine Microscopic WBC 41 /HPF (0-5) H Urine Squamous Epithelial Cells Mod /hpf (<5) Urine Bacteria None seen /hpf (None Seen) Urine Glucose 2+ mg/dL (Normal) H Blood Gas Results Test 06/14/24 06:44 Arterial Blood pH 7.517 (7.350-7.450) FiO2 % 30.0 Microbiology Microbiology Date/Time Source Procedure Growth Status 06/13/24 08:45 Nose MRSA Screen - Final Complete 06/11/24 23:55 Blood Blood Culture - Preliminary NO GROWTH AFTER 48 HOURS OF INCUBATION. Resulted Assessment/Plan Assessment/Plan 63-year-old female with a known history of hypertension, dyslipidemia, coronary artery disease, anxiety disorder, recent mechanical fall found to have acute small T12 compression fracture, L3-4 lumbar diskitis presented to the hospital with right-sided weakness altered mental status eventually intubated in the ER for airway protection. Patient was found to have acute/subacute left frontal and temporal infarct currently MRI brain is pending. 1. Acute hypoxic respiratory failure requiring intubation with mechanical ventilation secondary to metabolic encephalopathy 2. Metabolic encephalopathy rule out acute CVA 3.Subacute CVA with the left frontal and temporal infarct, MRI brain shows no evidence of acute infarct 4. Hypertensive emergency with the end-organ involvement , off the nicardipine drip 5. End-stage renal disease on hemodialysis 6. Coronary artery disease 7. L3-4 lumbar diskitis/osteomyelitis, resume IV vancomycin and consult infectious disease specialist 8. Hyponatremia, change IV fluids from D5W to D5 NS 8. Recurrent hypoglycemia, improving, currently on D5 NS, Accu-Cheks q.4 hours -continue IV antibiotics follow up MRI brain showed no evidence of acute infarct, patient was remains critical prognosis-remained guarded -plan of care discussed with the bedside DAVID Wu. -hemodialysis per Nephrology Plan discussed with: Other (Bedside DAVID Wu. Tried to call the retail advisor but no answer and not calling back either.) My Orders Orders - BENJA ROBBINS MD Procedure Category Date Status Time * Dietary Consult CONS 06/13/24 Transmitted 23:50 * Wound Consult CONS 06/13/24 Transmitted Glucose Blood PHA 06/14/24 In Process (Accu-Chek Comfort 14:00 Date of Service: Jun 14, 2024 Billing Provider: BENJA ROBBINS MD Common Visit Codes: NOT BILLABLE BENJA ROBBINS MD Jun 14, 2024 14:12
[2024-06-14] MEDS: IPRATROPIUM BROM 0.5 MG/2.5ML INH SOL NEB PRN (19:54)
[2024-06-14] MEDS: ALBUTEROL SULF 2.5 MG/0.5ML(0.5%) NEB SOLN NEB PRN (19:55)
--- NOTE | 2024-06-14 20:48 | DVHPN2 ---
Progress Note - Dictate Date Seen: Jun 14, 2024 Medical Necessity Reason Pt with a Central, PICC or Fol: Yes The following are medically ne: Eagle Catheter Reason for eagle catheter: Strict I&O Subjective Patient was seen and evaluated in follow up in the ICU. Patient is intubated and sedated on ventilator. 30% FiO2. Patient received HD today. HGB 9.3, HCT 27.1. Chest x-ray shows stable mild increased prominence of the pulmonary vasculature and cardiomegaly. vital signs Vital Sign Date Time Temp Pulse Resp B/P (MAP) Pulse Ox O2 Delivery O2 Flow Rate FiO2 06/14/24 19:51 70 18 174/62 (99) 98 30 06/14/24 18:00 98.4 209.1 06/14/24 08:00 Mechanical Ventilator+ Total Intake and Output 06/13/24 06/13/24 06/14/24 15:00 23:00 07:00 Intake Total 531.0 ml 1008.0 ml 708.0 ml Output Total 10 ml 31 ml Balance 531.0 ml 998.0 ml 677.0 ml medications Current Medications Medications Dose Ordered Sig/Eric Route Start Time Stop Time Status Last Admin Dose Admin Ondansetron HCl 4 mg Q4HP PRN IV 06/11/24 02:00 Nitroglycerin 0.4 mg Q5MINP PRN SL 06/11/24 02:00 Morphine Sulfate 2 mg Q30M PRN IV 06/11/24 02:00 Aspirin 81 mg DAILY PO 06/11/24 10:00 06/13/24 11:17 81 MG Atorvastatin Calcium 40 mg HS PO 06/11/24 22:00 06/13/24 21:37 40 MG Albuterol 2.5 mg Q4HPRN PRN NEB 06/11/24 02:00 06/14/24 19:55 2.5 MG Ipratropium [place] 0.5 mg Q4HPRN PRN NEB 06/11/24 02:00 06/14/24 19:54 0.5 MG Midazolam HCl 50 ml @ 1 mls/hr Q24H IV 06/11/24 02:15 06/14/24 14:44 6 MLS/HR Fentanyl Citrate 250 ml @ 2.5 mls/hr Q24H IV 06/11/24 02:15 06/13/24 20:23 7.5 MLS/HR Labetalol HCl 10 mg Q2HPRN PRN IV 06/11/24 04:30 06/13/24 15:09 10 MG Nicardipine HCl 250 ml @ 50 mls/hr Q5H IV 06/11/24 04:45 06/13/24 19:31 50 MLS/HR Heparin Sodium (Porcine) 5,000 units Q12HR SC 06/11/24 10:00 06/13/24 21:38 5,000 UNITS Pantoprazole Sodium 40 mg DAILY IV 06/11/24 10:00 06/13/24 11:16 40 MG Dextrose 50 ml UD PRN IV 06/11/24 07:15 06/12/24 14:52 50 ML Vancomycin HCl 0 ml @ 0 mls/hr UD IV 06/11/24 12:45 Ceftriaxone Sodium 50 ml @ 100 mls/hr DAILY@09 IV 06/13/24 09:00 06/14/24 08:09 100 MLS/HR Acetaminophen 650 mg Q6HP PRN GT 06/11/24 23:45 06/12/24 02:48 650 MG Nicardipine HCl 250 ml @ 50 mls/hr Q5H IV 06/13/24 14:45 UNV Dextrose/Sodium Chloride 1,000 ml @ 50 mls/hr Q20H IV 06/14/24 11:30 Diagnostic Test (Pha) 1 strip Q4HR 06/14/24 14:00 06/14/24 17:49 1 STRIP objective GENERAL: Intubated on ventilator. EYES: PERRL, EOMI. Anicteric. HENT: Moist mucous membranes. LUNGS: Decreased breath sounds. CARDIOVASCULAR: Regular rate and rhythm. ABDOMEN: Soft, nontender and nondistended. EXTREMITIES: No edema. NEUROLOGIC: No focal neurological deficits. SKIN: Warm, dry. laboratory and microbiology Laboratory Tests 06/14/24 03:05 Test 06/14/24 03:05 Range/Units Serum Glucose 90 74-106 mg/dL Problem List Acute CVA. Hypertensive emergency. Questionable coronary artery disease. Moderate pericardial effusion. Acute hypoxic respiratory failure. End-stage renal disease on hemodialysis. History of T12 compression fracture. Assessment/Plan Continued all current supportive medical care. Aspirin, Lipitor. IV antibiotics as ordered. Vasopressors for hemodynamic support. Nitro SL. Morphine for pain management. Additional plan as per the hospital course. Critical care time of 45 minutes provided to include time spent evaluation of patient at bedside, when appropriate patient/family education for diagnosis, treatment plan, review of pertinent medical information and discussion of care with specialty providers and PCP. Mechanical ventilator parameters, treatment and adjustments have personally been reviewed by me and treatment plan by hot bread baker has also been reviewed. Dietary Evaluation Review Comments: 1) If patient remains NPO > 7 days, consider EN/TPN to meet at least 75% estimated needs 2) If GI route is preferred, consider Nepro @ 25 mL/hr goal rate as tolerated. EN regimen will provide 1080 kcals, 49g Pro, and 447 mL free H2O per 24 hrs. EN regimen will meet ~90% estimated daily energy needs and ~47% estimated daily protein needs 3) Initiate Nephro-Susan @ 1 tb qd 4) Advance to 60g CCHO renal standard diet when medically feasible, pending [facility] approval 5) Follow-up with nephrology, cardiology, and pulmonology 6) Continue to monitor I&O, labs, and skin integrity Expected Outcomes/Goals: 1) patient to receive nutrition support within 7 days of NPO status 2) labs to improve 3) wound to improve 4) patient to be extubated and diet to advance 5) f/u in 2-3 days Plan discussed with: SHAUN Pérez MD Jun 14, 2024 20:05
[2024-06-15] VITALS (112 sets, daily range): BP systolic 119–194; BP diastolic 41–73; PULSE 55–89; RESP 17–20; TEMP 97–99; O2SAT 96–100
[2024-06-15 04:02] LABS: Basophils # (auto) 0 10 ^3/uL (0-0.2); Basophils % (auto) 0.9 % (0.0-2.0); Eosinophils # (auto) 0 10 ^3/uL (0-0.8); Eosinophils % (auto) 1.5 % (0.0-7.0); Hematocrit 28.9 % (36.0-46.0); Hemoglobin 9.7 g/dL (12.2-16.2); Lymphocytes # (auto) 0.4 10 ^3/uL (0.4-5.4); Lymphocytes % (auto) 20.2 % (10.0-50.0); Mean Corpuscular Hemoglobin 29.6 pg (28.0-32.0); Mean Corpuscular Hgb Conc. 33.7 g/dL (32.0-36.0); Mean Corpuscular Volume 87.7 fL (80.0-100.0); Monocytes # (auto) 0.2 10 ^3/uL (0-1.3); Monocytes % (auto) 9.7 % (0.0-12.0); Neutrophils # (auto) 1.5 10 ^3/uL (1.6-8.6); Neutrophils % (auto) 67.7 % (37.0-80.0); Nucleated Red Blood Cells % 0.1 %; Platelet Count (auto) 124 10^3/uL (140-450); Red Cell Distribution Width 16.4 % (11.8-14.3); White Blood Cell 2.2 10^3/uL (4.4-10.8)
[2024-06-15 04:09] LABS: Potassium 4.1 mmol/L (3.5-5.1)
[2024-06-15 04:10] LABS: Anion Gap 9 (5-15); Carbon Dioxide 27 mmol/L (20-31)
[2024-06-15 04:15] LABS: Glucose 86 mg/dL (74-106)
[2024-06-15 04:16] LABS: BUN/Creatinine Ratio 5.4 (10.0-20.0)
[2024-06-15 04:17] LABS: Blood Urea Nitrogen 31 mg/dL (9-23); Chloride 94 mmol/L (98-107); Sodium 130 mmol/L (136-145)
--- NOTE | 2024-06-15 06:34 | DVH ---
CHEST RADIOGRAPH Indication: RESPIRATORY FAILURE Technique: Single frontal view of the chest was obtained COMPARISON: XY CHEST XRAY 1 VIEW on DOS: 06/14/24, XY CHEST PORTABLE on DOS: 06/12/24, XY CHEST XRAY 1 VIEW on DOS: 06/11/24, XY CHEST PORTABLE on DOS: 06/10/24 FINDINGS: Lines and Tubes: Unchanged. Lungs: No evidence of consolidation. Mild diffuse increased prominence of the pulmonary vasculature n oted. Pleura: No effusion. No pneumothorax. Cardiomediastinal contours: Unremarkable Bones: Unremarkable IMPRESSION: 1. Mild diffuse increased prominence of the pulmonary vasculature. 2. Lines and tubes unchanged.
[2024-06-15 06:58] LABS: Base Excess 3.3 mmol/L (-2.0-3.0)
--- NOTE | 2024-06-15 09:10 | DVHPN2 ---
Progress Note - Dictate Date Seen: Jun 15, 2024 Medical Necessity Reason Pt with a Central, PICC or Fol: Yes The following are medically ne: Eagle Catheter Reason for eagle catheter: Strict I&O vital signs Vital Sign Date Time Temp Pulse Resp B/P (MAP) Pulse Ox O2 Delivery O2 Flow Rate FiO2 06/15/24 07:52 61 18 129/42 (71) 96 30 06/15/24 07:00 98.6 209.5 06/14/24 20:00 Mechanical Ventilator+ Total Intake and Output 06/14/24 06/14/24 06/15/24 15:00 23:00 07:00 Intake Total 962.0 ml 508.0 ml 489.0 ml Output Total 0 ml 15 ml Balance 962.0 ml 508.0 ml 474.0 ml medications Current Medications Medications Dose Ordered Sig/Eric Route Start Time Stop Time Status Last Admin Dose Admin Ondansetron HCl 4 mg Q4HP PRN IV 06/11/24 02:00 Nitroglycerin 0.4 mg Q5MINP PRN SL 06/11/24 02:00 Morphine Sulfate 2 mg Q30M PRN IV 06/11/24 02:00 Aspirin 81 mg DAILY PO 06/11/24 10:00 06/13/24 11:17 81 MG Atorvastatin Calcium 40 mg HS PO 06/11/24 22:00 06/14/24 21:53 40 MG Albuterol 2.5 mg Q4HPRN PRN NEB 06/11/24 02:00 06/15/24 02:08 2.5 MG Ipratropium [place] 0.5 mg Q4HPRN PRN NEB 06/11/24 02:00 06/15/24 02:08 0.5 MG Midazolam HCl 50 ml @ 1 mls/hr Q24H IV 06/11/24 02:15 06/15/24 06:14 5 MLS/HR Fentanyl Citrate 250 ml @ 2.5 mls/hr Q24H IV 06/11/24 02:15 06/15/24 03:45 7.5 MLS/HR Labetalol HCl 10 mg Q2HPRN PRN IV 06/11/24 04:30 06/15/24 01:04 10 MG Nicardipine HCl 250 ml @ 50 mls/hr Q5H IV 06/11/24 04:45 06/15/24 03:01 50 MLS/HR Heparin Sodium (Porcine) 5,000 units Q12HR SC 06/11/24 10:00 06/14/24 21:56 5,000 UNITS Pantoprazole Sodium 40 mg DAILY IV 06/11/24 10:00 06/13/24 11:16 40 MG Dextrose 50 ml UD PRN IV 06/11/24 07:15 06/12/24 14:52 50 ML Vancomycin HCl 0 ml @ 0 mls/hr UD IV 06/11/24 12:45 Ceftriaxone Sodium 50 ml @ 100 mls/hr DAILY@09 IV 06/13/24 09:00 06/15/24 08:25 100 MLS/HR Acetaminophen 650 mg Q6HP PRN GT 06/11/24 23:45 06/12/24 02:48 650 MG Nicardipine HCl 250 ml @ 50 mls/hr Q5H IV 06/13/24 14:45 UNV Dextrose/Sodium Chloride 1,000 ml @ 50 mls/hr Q20H IV 06/14/24 11:30 06/14/24 20:55 50 MLS/HR Diagnostic Test (Pha) 1 strip Q4HR 06/14/24 14:00 06/15/24 06:28 1 STRIP Methylprednisolone Sodium Succinate 40 mg Q8HR IV 06/15/24 14:00 UNV laboratory and microbiology Laboratory Tests 06/15/24 03:10 Test 06/15/24 03:10 Range/Units Serum Glucose 86 74-106 mg/dL Assessment/Plan Impression: Acute hypoxic respiratory failure Altered mental status Acute CVA Acute encephalopathy ESRD, on hemodialysis Patient seen and examined in ICU Events: On mechanical ventilation S/p intubation for airway protection PEEP 5, FiO2 30% Labs and imaging reviewed CXR reviewed, demonstrates cardiomegaly with mild congestion. Devices in place. ABG reviewed events tongue swelling reported by RN started on steroids Plan: Vent support Titrate FIO2 to keep O2 saturation above 90%. VAP bundle. Daily ABG and CXR while intubated Sedate for ventilator synchrony Sedation holiday daily check for cuff leak If patient follows commands, proceed to weaning trial Pressure support 08/23, extubate when ready Pressors as necessary for hemodynamic support Titrate to keep mean arterial pressure greater than 65 mmHg. HD per Nephrology Monitor renal function Monitor electrolytes. Supplement as necessary. Monitor ins and outs. Maintain euvolemia. GI prophylaxis. DVT prophylaxis. Critical care time 35 minutes Dietary Evaluation Review Comments: 1) If patient remains NPO > 7 days, consider EN/TPN to meet at least 75% estimated needs 2) If GI route is preferred, consider Nepro @ 25 mL/hr goal rate as tolerated. EN regimen will provide 1080 kcals, 49g Pro, and 447 mL free H2O per 24 hrs. EN regimen will meet ~90% estimated daily energy needs and ~47% estimated daily protein needs 3) Initiate Nephro-Susan @ 1 tb qd 4) Advance to 60g [facility] renal standard diet when medically feasible, pending [facility] approval 5) Follow-up with nephrology, cardiology, and pulmonology 6) Continue to monitor I&O, labs, and skin integrity Expected Outcomes/Goals: 1) patient to receive nutrition support within 7 days of NPO status 2) labs to improve 3) wound to improve 4) patient to be extubated and diet to advance 5) f/u in 2-3 days Plan discussed with: Other (rn) MECHE STEWARD MD Jun 15, 2024 09:10
--- NOTE | 2024-06-15 12:22 | DVHPN2 ---
Progress Note - Dictate Date Seen: Jun 15, 2024 Medical Necessity Reason Pt with a Central, PICC or Fol: Yes The following are medically ne: Eagle Catheter Reason for eagle catheter: Strict I&O Subjective On mechanical ventilation vital signs Vital Sign Date Time Temp Pulse Resp B/P (MAP) Pulse Ox O2 Delivery O2 Flow Rate FiO2 06/15/24 11:45 78 18 169/56 (93) 98 30 06/15/24 10:46 97.7 207.9 06/15/24 08:00 Mechanical Ventilator+ Total Intake and Output 06/14/24 06/14/24 06/15/24 15:00 23:00 07:00 Intake Total 962.0 ml 508.0 ml 554.0 ml Output Total 0 ml 15 ml Balance 962.0 ml 508.0 ml 539.0 ml medications Current Medications Medications Dose Ordered Sig/Eric Route Start Time Stop Time Status Last Admin Dose Admin Ondansetron HCl 4 mg Q4HP PRN IV 06/11/24 02:00 Nitroglycerin 0.4 mg Q5MINP PRN SL 06/11/24 02:00 Morphine Sulfate 2 mg Q30M PRN IV 06/11/24 02:00 Aspirin 81 mg DAILY PO 06/11/24 10:00 06/13/24 11:17 81 MG Atorvastatin Calcium 40 mg HS PO 06/11/24 22:00 06/14/24 21:53 40 MG Albuterol 2.5 mg Q4HPRN PRN NEB 06/11/24 02:00 06/15/24 02:08 2.5 MG Ipratropium [place] 0.5 mg Q4HPRN PRN NEB 06/11/24 02:00 06/15/24 02:08 0.5 MG Midazolam HCl 50 ml @ 1 mls/hr Q24H IV 06/11/24 02:15 06/15/24 06:14 5 MLS/HR Fentanyl Citrate 250 ml @ 2.5 mls/hr Q24H IV 06/11/24 02:15 06/15/24 03:45 7.5 MLS/HR Labetalol HCl 10 mg Q2HPRN PRN IV 06/11/24 04:30 06/15/24 01:04 10 MG Nicardipine HCl 250 ml @ 50 mls/hr Q5H IV 06/11/24 04:45 06/15/24 03:01 50 MLS/HR Heparin Sodium (Porcine) 5,000 units Q12HR SC 06/11/24 10:00 06/15/24 10:18 5,000 UNITS Pantoprazole Sodium 40 mg DAILY IV 06/11/24 10:00 06/15/24 10:17 40 MG Dextrose 50 ml UD PRN IV 06/11/24 07:15 06/12/24 14:52 50 ML Vancomycin HCl 0 ml @ 0 mls/hr UD IV 06/11/24 12:45 Ceftriaxone Sodium 50 ml @ 100 mls/hr DAILY@09 IV 06/13/24 09:00 06/15/24 08:25 100 MLS/HR Acetaminophen 650 mg Q6HP PRN GT 06/11/24 23:45 06/12/24 02:48 650 MG Nicardipine HCl 250 ml @ 50 mls/hr Q5H IV 06/13/24 14:45 UNV Dextrose/Sodium Chloride 1,000 ml @ 50 mls/hr Q20H IV 06/14/24 11:30 06/14/24 20:55 50 MLS/HR Diagnostic Test (Pha) 1 strip Q4HR 06/14/24 14:00 06/15/24 10:17 1 STRIP Methylprednisolone Sodium Succinate 40 mg Q8HR IV 06/15/24 14:00 objective On mechanical ventilation Lungs Diminished air entry at bases CV:: RR, no pericardial rub Abdomen: soft, mildly distended, low BS Trace edema of legs laboratory and microbiology Laboratory Tests 06/15/24 03:10 Test 06/15/24 03:10 Range/Units Serum Glucose 86 74-106 mg/dL Problem List 1. End-stage renal disease. From renal standpoint, she appears to be stable. 2. Hyponatremia improved We should avoid the use of hypotonic fluids. Switched IVF to D5.NS (needs dextrose due to hypoglycemia) 3. Anemia of renal disease. Continue IV Epogen with dialysis. 4. She appears to be leukopenic, I suggest Hematology consultation. 5. Respiratory failure, on mechanical ventilation for airway protection. 6. Subacute stroke. 7. T-spine fracture. HS to continue on TTS schedule Avoid hypotonic fluids Consider starting tube feedings and resume anti hypertensives enterally Strict is and Os Daily BMP Dietary Evaluation Review Comments: 1) If patient remains NPO > 7 days, consider EN/TPN to meet at least 75% estimated needs 2) If GI route is preferred, consider Nepro @ 25 mL/hr goal rate as tolerated. EN regimen will provide 1080 kcals, 49g Pro, and 447 mL free H2O per 24 hrs. EN regimen will meet ~90% estimated daily energy needs and ~47% estimated daily protein needs 3) Initiate Nephro-Susan @ 1 tb qd 4) Advance to 60g [facility] renal standard diet when medically feasible, pending [facility] approval 5) Follow-up with nephrology, cardiology, and pulmonology 6) Continue to monitor I&O, labs, and skin integrity Expected Outcomes/Goals: 1) patient to receive nutrition support within 7 days of NPO status 2) labs to improve 3) wound to improve 4) patient to be extubated and diet to advance 5) f/u in 2-3 days Plan discussed with: STEFANIE Fierro MD Jun 15, 2024 12:22
[2024-06-15] MEDS: methylPREDNISolone SOD SUCC 40 MG/ML VL IV SCH (13:35)
--- NOTE | 2024-06-15 14:29 | DVHPN2 ---
Subjective Patient was remains intubated and sedated, patient has received hemodialysis yesterday. Reviewed: Care Plan Changes from previous H/P or p: No Changes Objective Vitals Vital Signs Date Time Temp Pulse Resp B/P (MAP) Pulse Ox O2 Delivery O2 Flow Rate FiO2 06/15/24 13:41 77 18 167/54 (91) 98 30 06/15/24 12:15 97.9 208.2 06/15/24 08:00 Mechanical Ventilator+ Intake/Output Intake and Output 06/15/24 07:00 Intake Total 2024.0 ml Output Total 15 ml Balance 2009.0 ml Intake Oral 40 ml IV Total 1984.0 ml Output Urine Total 15 ml Exam HEENT pupils are reactive , positive scleral edema, positive tongue swelling 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 no edema [employer] intubated and sedated Medications Current Medications Medications Dose Ordered Sig/Eric Route Start Time Stop Time Status Last Admin Dose Admin Ondansetron HCl 4 mg Q4HP PRN IV 06/11/24 02:00 Nitroglycerin 0.4 mg Q5MINP PRN SL 06/11/24 02:00 Morphine Sulfate 2 mg Q30M PRN IV 06/11/24 02:00 Aspirin 81 mg DAILY PO 06/11/24 10:00 06/13/24 11:17 81 MG Atorvastatin Calcium 40 mg HS PO 06/11/24 22:00 06/14/24 21:53 40 MG Albuterol 2.5 mg Q4HPRN PRN NEB 06/11/24 02:00 06/15/24 02:08 2.5 MG Ipratropium [place] 0.5 mg Q4HPRN PRN NEB 06/11/24 02:00 06/15/24 02:08 0.5 MG Midazolam HCl 50 ml @ 1 mls/hr Q24H IV 06/11/24 02:15 06/15/24 06:14 5 MLS/HR Fentanyl Citrate 250 ml @ 2.5 mls/hr Q24H IV 06/11/24 02:15 06/15/24 03:45 7.5 MLS/HR Labetalol HCl 10 mg Q2HPRN PRN IV 06/11/24 04:30 06/15/24 01:04 10 MG Nicardipine HCl 250 ml @ 50 mls/hr Q5H IV 06/11/24 04:45 06/15/24 03:01 50 MLS/HR Heparin Sodium (Porcine) 5,000 units Q12HR SC 06/11/24 10:00 06/15/24 10:18 5,000 UNITS Pantoprazole Sodium 40 mg DAILY IV 06/11/24 10:00 06/15/24 10:17 40 MG Dextrose 50 ml UD PRN IV 06/11/24 07:15 06/12/24 14:52 50 ML Vancomycin HCl 0 ml @ 0 mls/hr UD IV 06/11/24 12:45 Ceftriaxone Sodium 50 ml @ 100 mls/hr DAILY@09 IV 06/13/24 09:00 06/15/24 08:25 100 MLS/HR Acetaminophen 650 mg Q6HP PRN GT 06/11/24 23:45 06/12/24 02:48 650 MG Nicardipine HCl 250 ml @ 50 mls/hr Q5H IV 06/13/24 14:45 UNV Dextrose/Sodium Chloride 1,000 ml @ 50 mls/hr Q20H IV 06/14/24 11:30 06/14/24 20:55 50 MLS/HR Diagnostic Test (Pha) 1 strip Q4HR 06/14/24 14:00 06/15/24 13:25 1 STRIP Methylprednisolone Sodium Succinate 40 mg Q8HR IV 06/15/24 14:00 06/15/24 13:35 40 MG Enteral Nutritional Formula 1,000 ml 25ML/HR GT 06/15/24 13:30 UNV Laboratory Results Laboratory Tests 06/15/24 03:10 Chemistry Test 06/15/24 03:10 Calcium Level 9.0 mg/dL (8.7-10.4) Urinalysis Test 06/11/24 03:00 Urine Color Light-yellow (Yellow) Urine Clarity Turbid (Clear) H Urine pH 8.0 (5.0-9.0) Urine Specific [place] 1.008 (1.001-1.035) Urine Protein 3+ (Negative) H Urine Ketones Negative (Negative) Urine Blood Negative /uL (Negative) Urine Nitrite Negative (Negative) Urine Bilirubin Negative (Negative) Urine Urobilinogen Normal mg/dL (Negative) Urine Leukocyte Esterase 1+ /uL (Negative) Urine RBC 10 /hpf (0 - 4) Urine Microscopic WBC 41 /HPF (0-5) H Urine Squamous Epithelial Cells Mod /hpf (<5) Urine Bacteria None seen /hpf (None Seen) Urine Glucose 2+ mg/dL (Normal) H Blood Gas Results Test 06/15/24 06:51 Arterial Blood pH 7.518 (7.350-7.450) FiO2 % 30.0 Microbiology Microbiology Date/Time Source Procedure Growth Status 06/13/24 08:45 Nose MRSA Screen - Final Complete 06/11/24 23:55 Blood Blood Culture - Preliminary NO GROWTH AFTER 72 HOURS OF INCUBATION. Resulted Assessment/Plan Assessment/Plan 63-year-old female with a known history of hypertension, dyslipidemia, coronary artery disease, anxiety disorder, recent mechanical fall found to have acute small T12 compression fracture, L3-4 lumbar diskitis presented to the hospital with right-sided weakness altered mental status eventually intubated in the ER for airway protection. Patient was found to have acute/subacute left frontal and temporal infarct currently MRI brain is pending. 1. Acute hypoxic respiratory failure requiring intubation with mechanical ventilation secondary to metabolic encephalopathy 2. 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 Hypertensive emergency with the end-organ involvement , off the nicardipine drip 5. End-stage renal disease on hemodialysis received hemodialysis on06/14 6. Coronary artery disease 7. L3-4 lumbar diskitis/osteomyelitis, resume IV vancomycin and consult infectious disease specialist 8. Hyponatremia, continue IV fluids D5 NS 8. Recurrent hypoglycemia, improving, currently on D5 NS, Accu-Cheks q.4 hours -continue IV antibiotics follow up MRI brain showed no evidence of acute infarct, patient was remains critical prognosis-remained guarded -plan of care discussed with the bedside DAVID Wu. -hemodialysis per Nephrology Plan discussed with: Other My Orders Orders - BENJA ROBBINS MD Procedure Category Date Status Time Chest Portable XY 06/15/24 Resulted 04:00 Complete Blood Count LAB 06/16/24 Verified 04:00 Vancomycin,Random LAB 06/16/24 Verified 04:00 Nutritional PHA 06/15/24 Logged Supplements (Nepro 13:30 Tube Feeding DIET 06/15/24 Transmitted Lunch Date of Service: Jun 15, 2024 Billing Provider: BENJA ROBBINS MD Common Visit Codes: NOT BILLABLE BENJA ROBBINS MD Jun 15, 2024 14:29
--- NOTE | 2024-06-15 20:50 | DVHINCON2 ---
Date of service: Jun 15, [address] Mckeon Reason for Consultation Chronic ischemia History of Present Illness Ms. Dawkins is a 63 years old female with a history of chronic kidney failure on hemodialysis, recent spine fracture, she came to the [facility] on 06/10/2024 with a chief company of back pain. But patient was has MRI evidence suggestive of 2 strokes. At that time, she was sedated, on pressor drip, only slight responds to stroke painful stimuli, the history is obtained from Wesley and Alvaro, but they could only provide limited information She was no history of stroke, and no focal weakness numbness suggestive of stroke. She was progressive severe back pain for 2-3 weeks, and she came to the hospital because the pain was very intense. In the ER, the patient had respiratory failure and was intubated Her CT to the T-spine lumbar spine she was no evidence of acute fracture, but I saw abnormal EEG imaging in the lumbar spine [phone] Blood culture, 06/11/2024: Urinalysis, 06/11/2024: Negative Plasma alcohol, 06/10/2024: <3 ABG, 06/08/2024: Respiratory alkalosis WBC/HB/PLT/MCV, 06/11/2024: 1.7/10.5/114/89.3, 06/15/2024: 2.2/9.7/124/87.7 Na, 06/10/2024: 136, 06/12/2024: 133, 06/14/2024: 125, 06/15/24: 130 BUN/CR, 05/2624: 47/7.51, 06/15/2024: 31/5.74 HGB A1c, 06/11/2024: 4.3 Liver function tests, 06/10/2024: Unremarkable TG/HDL/LDL/HDL, 06/11/2024: 63/106/47/40 Echocardiogram, 06/11/2024: LVEF is normal 50-55% Rv function normal Moderate pericardial effusion with no evidence of tamponade Large left pleural effusion Chest x-ray, 06/11/2024: Lines and tubes in satisfactory position. No significant interval change Chest x-ray, 06/15/2024: 1. Mild diffuse increased prominence of the pulmonary vasculature. 2. Lines and tubes unchanged CT head, 06/10/2024: Subacute stroke involving the left frontal lobe white matter which also may involve the left temporal lobe as well can not rule out acute features CT head, neck, 06/10/2024: No significant vascular stenosis involving the head / neck. Moderate occlusion of the bilateral V4 segments vertebral arteries due to calcified and noncalcified plaques CT T-spine, 06/10/2024: No evidence of fracture in the thoracic spine CT lumbar spine, 06/10/2024: No acute fracture. Grade 1 anterolisthesis at L4-L5 with bilateral pars defects. Moderate to severe endplate degenerative changes at L4-L5, T12-L1, and L5-S1. There is severe spinal canal narrowing at L4-L5. Partially visualized moderate bilateral pleural effusions. Mild diffuse anasarca MRI head, 06/12/2024: 1. There is no acute intracranial process. 2. Chronic infarct in the superolateral left frontal lobe. (I saw another possible chronic stroke: Images 16) Past Medical History Chronic kidney failure on hemodialysis, nocturnal home oxygen Past Surgical History Chest hemodialysis catheterization Family History: Patient reports no known family medical history. Family History Unknown Social History She was not a tobacco smoke, she was no history of alcohol or recreational substance abuse Allergies: Coded Allergies: NO KNOWN ALLERGIES (Unverified , 06/10/24) Home Meds Reported Medications Ondansetron Odt 4MG Tab (ZOFRAN PO) 4 Mg Tb, 1 TAB PO BID for 90 Days, #180 06/12/24 B-Complex W/ C & Folic Acid (Kimi-Susan Rx) Tab, 1 TAB PO DAILY for 90 Days, #90 06/12/24 Nifedipine (Nifedipine Er) 90 Mg Tab, 1 TAB PO DAILY for 30 Days, #30 06/12/24 Clopidogrel Bisulfate (CLOPIDOGREL) 75 Mg Tab, 1 TAB PO DAILY for 30 Days, #30 06/12/24 Gabapentin (Gabapentin) 100 Mg Cap, 1 CAP PO TID for 30 Days, #90 06/12/24 Aspirin (Aspirin Low Dose) 81 Mg Tab, 1 TAB PO DAILY for 30 Days, #30 06/12/24 Atorvastatin Calcium (ATORVASTATIN CALCIUM) 40 Mg Tab, 1 TAB PO DAILY for 30 Days, #30 06/12/24 Losartan Potassium (Losartan Potassium) 100 Mg Tab, 1 TAB PO DAILY for 30 Days, #30 06/12/24 Carvedilol (Carvedilol) 25 Mg Tab, 1 TAB PO BID for 30 Days, #60 06/12/24 Furosemide (Furosemide) 40 Mg Tab, 1 TAB PO BID for 30 Days, #60 06/12/24 Hydralazine Hcl (Hydralazine Hcl) 100 Mg Tab, 1 TAB PO TID for 30 Days, #90 06/12/24 Baclofen (Baclofen) 10 Mg Tab, 1 TAB PO DAILY for 30 Days, #30 06/12/24 Current Medications Current Medications Medications (Trade) Dose Ordered Sig/Eric Route PRN Reason Start Time Stop Time Status Last Admin Methylprednisolone Sodium Succinate (Solu Medrol) 40 mg Q8HR IV 06/15/24 14:00 06/15/24 13:35 Enteral Nutritional Formula (Nepro With Carb Steady) 1,000 ml 25ML/HR GT 06/15/24 13:30 Review of Systems As above, the other systems are negative Vital Signs Vital Signs Date Time Temp Pulse Resp B/P (MAP) Pulse Ox O2 Delivery O2 Flow Rate FiO2 06/15/24 18:44 60 18 158/49 (85) 97 30 06/15/24 18:31 98.1 208.6 06/15/24 08:00 Mechanical Ventilator+ Physical Exam The patient is well-nourished and well-developed with no distress. The patient is intubated HEENT: Normocephalic, neck supple, no carotid bruits Lungs: Clear to auscultation Cardiovascular: Regular rate and region, S1, S2, no murmurs Abdomen: Soft, nontender, normal bowel sounds MENTAL STATUS: Slight responds to strong painful stimuli CRANIAL NERVES: Pupils are equal, round and reactive.There are corneal reflexes and doll's eyes phenomenon. No signs of facial weakness. There are very weak gagging or coughing reflexes SENSATION: Slightly responses to strong pain stimuli. MOTOR: Normal tone in the upper and lower extremity. Normal muscle bulk. No fasciculations. No spontaneous movement. REFLEXES: Deep tendon reflexes are symmetrical. No pathological reflexes. CEREBELLAR/COORDINATION: Deferred GAIT/STATION: deferred. Labs/Diagnostic Data Labs Test 06/15/24 17:46 06/15/24 06:51 06/15/24 03:10 06/14/24 12:04 Range/Units POC Glucose 106 70-106 mg/dl Blood Gas Specimen Type Arterial Blood Gas Sample Site Right radial Blood Gas Patient Temperature 37.0 Arterial Blood Date Drawn [id number] Arterial Blood pH 7.518 H 7.350-7.450 Arterial Blood Partial Pressure CO2 32.9 32.0-45.0 mmHg Arterial Blood Partial Pressure O2 77.6 L 83.0-108.0 mmHg Arterial Blood HCO3 26.1 21.0-28.0 mmol/L Arterial Blood Oxygen Saturation 95.5 94.0-98.0 % Arterial Blood Base Excess 3.3 H -2.0-3.0 mmol/L Arterial Blood Oxyhemoglobin 93.6 L 94.0-98.0 % Arterial Blood Carboxyhemoglobin 1.7 H 0.5-1.5 % Arterial Blood Methemoglobin 0.3 0.0-1.5 % Blayne Test Modified Blood Gas Total Hemoglobin 9.00 L 12.0-16.0 g/dL Blood Gas Set Respiration Rate 18.0 Blood Gas Modality Vent - ac FiO2 % 30.0 Blood Gas Tidal Volume 450.0 Blood Gas PEEP or CPAP 5.0 White Blood Count 2.2 L 4.4-10.8 10^3/uL Red Blood Count 3.30 L 4.0-5.20 10^6/uL Hemoglobin 9.7 L 12.2-16.2 g/dL Hematocrit 28.9 L 36.0-46.0 % Mean Corpuscular Volume 87.7 80.0-100.0 fL Mean Corpuscular Hemoglobin 29.6 28.0-32.0 pg Mean Corpuscular Hemoglobin Concent 33.7 32.0-36.0 g/dL Red Cell Distribution Width 16.4 H 11.8-14.3 % Platelet Count 124 L 140-450 10^3/uL Mean Platelet Volume 8.0 6.9-10.8 fL Neutrophils (%) (Auto) 67.7 37.0-80.0 % Lymphocytes (%) (Auto) 20.2 10.0-50.0 % Monocytes (%) (Auto) 9.7 0.0-12.0 % Eosinophils (%) (Auto) 1.5 0.0-7.0 % Basophils (%) (Auto) 0.9 0.0-2.0 % Neutrophils # (Auto) 1.5 L 1.6-8.6 10 ^3/uL Lymphocytes # (Auto) 0.4 0.4-5.4 10 ^3/uL Monocytes # (Auto) 0.2 0-1.3 10 ^3/uL Eosinophils # (Auto) 0 0-0.8 10 ^3/uL Basophils # (Auto) 0 0-0.2 10 ^3/uL Nucleated Red Blood Cells 0.1 % Sodium Level 130 #L 136-145 mmol/L Potassium Level 4.1 3.5-5.1 mmol/L Chloride Level 94 L 98-107 mmol/L Carbon Dioxide Level 27 20-31 mmol/L Anion Gap 9 5-15 Blood Urea Nitrogen 31 #H 9-23 mg/dL Creatinine 5.74 H 0.550-1.02 mg/dL Glomerular Filtration Rate Calc 8 >90 mL/min BUN/Creatinine Ratio 5.4 L 10.0-20.0 Serum Glucose 86 74-106 mg/dL Calcium Level 9.0 8.7-10.4 mg/dL Test 06/14/24 03:05 06/12/24 07:03 06/11/24 05:05 06/11/24 04:08 Range/Units Random Vancomycin Level 33.2 H 5-10 ug/mL Specimen Drawn By Mac lobo Differential Total Cells Counted 100.0 100 Neutrophils % (Manual) 65 37.0-80.0 Band Neutrophils % (Manual) 2 Lymphocytes % (Manual) 21 10.0-50.0 Monocytes % (Manual) 9 0-12 Eosinophils % (Manual) 3 0-7 Basophils % (Manual) 0 0.0-2.0 Metamyelocytes % (manual) 0 Myelocytes % (Manual) 0 Promyelocytes % (Manual) 0 Blast Cells % (Manual) 0 Reactive Lymphocytes 0 Platelet Estimate Decreased Large Platelets Few Hemoglobin A1c 4.3 <5.7 % A1C Triglycerides Level 63 < 150 mg/dL Cholesterol Level 106 < 200 mg/dL LDL Cholesterol 47 < 100 mg/dL HDL Cholesterol 40 40-59 mg/dL Blood Gas Spontaneous Rate 18 Test 06/11/24 03:00 06/10/24 23:30 06/10/24 23:02 06/10/24 22:36 Range/Units Urine Color Light-yellow Yellow Urine Clarity Turbid H Clear Urine pH 8.0 5.0-9.0 Urine Specific [place] 1.008 1.001-1.035 Urine Protein 3+ H Negative Urine Ketones Negative Negative Urine Blood Negative Negative /uL Urine Nitrite Negative Negative Urine Bilirubin Negative Negative Urine Urobilinogen Normal Negative mg/dL Urine Leukocyte Esterase 1+ Negative /uL Urine RBC 10 0 - 4 /hpf Urine Microscopic WBC 41 H 0-5 /HPF Urine Squamous Epithelial Cells Mod <5 /hpf Urine Bacteria None seen None Seen /hpf Urine Glucose 2+ H Normal mg/dL Urine Opiates Screen Neg NEGATIVE Urine Fentanyl Screen Neg NEGATIVE Urine Barbiturates Screen Neg NEGATIVE Urine Phencyclidine Screen Neg NEGATIVE Urine Amphetamines Screen Neg NEGATIVE Urine Benzodiazepines Screen Neg NEGATIVE Urine Cocaine Screen Neg NEGATIVE Urine Cannabinoids Screen Neg NEGATIVE Troponin I High Sensitivity 18 </=34 ng/L Lactic Acid Level 0.7 0.4-2.0 mmol/L Ammonia 22 11-32 umol/L Plasma/Serum Blood Alcohol < 3.0 <10 mg/dL Total Bilirubin 0.4 0.2-1.0 mg/dL Aspartate Amino Transferase (AST) 23 13-40 U/L Alanine Aminotransferase (ALT) 11 7-40 U/L Alkaline Phosphatase 120 H 46-116 U/L B-Type Natriuretic Peptide 1515.73 0-100 pg/mL Total Protein 7.2 5.7-8.2 g/dL Albumin 4.4 3.2-4.8 g/dL Microbiology Date/Time Source Procedure Growth Status 06/13/24 08:45 Nose MRSA Screen - Final Complete 06/11/24 23:55 Blood Blood Culture - Preliminary NO GROWTH AFTER 72 HOURS OF INCUBATION. Resulted Assessment 2 chronic strokes in the left hemisphere per MRI and CT scan, likely asymptomatic Acute low back pain to rule out diskitis Acute respiratory failure Plan/Recommendation Monitoring Supportive treatment ICU care EEG Blood culture Follow-up labs Stabilize vitals/pressor drip Respiratory support/vent management IV antibiotics Aspirin 81 mg daily Lipitor 40 mg daily DVT prophylaxis GI prophylaxis Infectious disease on case Cardiology on case Pulmonary on case Nephrology on case More recommendation per clinical course Progress: Guarded Critical care time spent 45 minutes This medical document was created using an electronic medical record system with [employer] system. Although this document has been carefully reviewed, there may still be some phonetic and typographical errors. These areas are purely typographical due to imperfections of the software programs, and do not reflect any compromise in the patient's medical care. Plan discussed with: Other FORD ORTA MD Jun 15, 2024 20:50
[2024-06-15] MEDS: Nepro With Carb Steady 1 Liter Bottle GT SCH (21:22)
--- NOTE | 2024-06-15 23:29 | DVHPN2 ---
Progress Note - Dictate Date Seen: Jun 15, 2024 Medical Necessity Reason Pt with a Central, PICC or Fol: Yes The following are medically ne: Eagle Catheter Reason for eagle catheter: Strict I&O Subjective Patient was seen and evaluated in follow up in the ICU. Patient is intubated and sedated on ventilator. 30% FiO2. WBC 2.2, HGB 9.7, HCT 28.9, NA 130, CL 94, BUN 31, [employer] 5.74. Chest x-ray shows mild diffuse increased prominence of the pulmonary vasculature. vital signs Vital Sign Date Time Temp Pulse Resp B/P (MAP) Pulse Ox O2 Delivery O2 Flow Rate FiO2 06/15/24 15:31 171/60 06/15/24 14:15 98.6 77 18 98 209.5 06/15/24 14:00 30 06/15/24 08:00 Mechanical Ventilator+ Total Intake and Output 06/14/24 06/14/24 06/15/24 15:00 23:00 07:00 Intake Total 962.0 ml 508.0 ml 554.0 ml Output Total 0 ml 15 ml Balance 962.0 ml 508.0 ml 539.0 ml medications Current Medications Medications Dose Ordered Sig/Eric Route Start Time Stop Time Status Last Admin Dose Admin Ondansetron HCl 4 mg Q4HP PRN IV 06/11/24 02:00 Nitroglycerin 0.4 mg Q5MINP PRN SL 06/11/24 02:00 Morphine Sulfate 2 mg Q30M PRN IV 06/11/24 02:00 Aspirin 81 mg DAILY PO 06/11/24 10:00 06/13/24 11:17 81 MG Atorvastatin Calcium 40 mg HS PO 06/11/24 22:00 06/14/24 21:53 40 MG Albuterol 2.5 mg Q4HPRN PRN NEB 06/11/24 02:00 06/15/24 02:08 2.5 MG Ipratropium [place] 0.5 mg Q4HPRN PRN NEB 06/11/24 02:00 06/15/24 02:08 0.5 MG Midazolam HCl 50 ml @ 1 mls/hr Q24H IV 06/11/24 02:15 06/15/24 15:31 5 MLS/HR Fentanyl Citrate 250 ml @ 2.5 mls/hr Q24H IV 06/11/24 02:15 06/15/24 03:45 7.5 MLS/HR Labetalol HCl 10 mg Q2HPRN PRN IV 06/11/24 04:30 06/15/24 01:04 10 MG Nicardipine HCl 250 ml @ 50 mls/hr Q5H IV 06/11/24 04:45 06/15/24 03:01 50 MLS/HR Heparin Sodium (Porcine) 5,000 units Q12HR SC 06/11/24 10:00 06/15/24 10:18 5,000 UNITS Pantoprazole Sodium 40 mg DAILY IV 06/11/24 10:00 06/15/24 10:17 40 MG Dextrose 50 ml UD PRN IV 06/11/24 07:15 06/12/24 14:52 50 ML Vancomycin HCl 0 ml @ 0 mls/hr UD IV 06/11/24 12:45 Ceftriaxone Sodium 50 ml @ 100 mls/hr DAILY@09 IV 06/13/24 09:00 06/15/24 08:25 100 MLS/HR Acetaminophen 650 mg Q6HP PRN GT 06/11/24 23:45 06/12/24 02:48 650 MG Nicardipine HCl 250 ml @ 50 mls/hr Q5H IV 06/13/24 14:45 UNV Dextrose/Sodium Chloride 1,000 ml @ 50 mls/hr Q20H IV 06/14/24 11:30 06/15/24 15:34 50 MLS/HR Diagnostic Test (Pha) 1 strip Q4HR 06/14/24 14:00 06/15/24 13:25 1 STRIP Methylprednisolone Sodium Succinate 40 mg Q8HR IV 06/15/24 14:00 06/15/24 13:35 40 MG Enteral Nutritional Formula 1,000 ml 25ML/HR GT 06/15/24 13:30 objective GENERAL: Intubated on ventilator. EYES: PERRL, EOMI. Anicteric. HENT: Moist mucous membranes. LUNGS: Decreased breath sounds. CARDIOVASCULAR: Regular rate and rhythm. ABDOMEN: Soft, nontender and nondistended. EXTREMITIES: No edema. NEUROLOGIC: No focal neurological deficits. SKIN: Warm, dry. laboratory and microbiology Laboratory Tests 06/15/24 03:10 Test 06/15/24 03:10 Range/Units Serum Glucose 86 74-106 mg/dL Problem List Acute CVA. Hypertensive emergency. Questionable coronary artery disease. Moderate pericardial effusion. Acute hypoxic respiratory failure. End-stage renal disease on hemodialysis. History of T12 compression fracture. Assessment/Plan Continued all current supportive medical care. Aspirin, Lipitor. IV antibiotics as ordered. Vasopressors for hemodynamic support. Nitro SL. Morphine for pain management. Additional plan as per the hospital course. Critical care time of 45 minutes provided to include time spent evaluation of patient at bedside, when appropriate patient/family education for diagnosis, treatment plan, review of pertinent medical information and discussion of care with specialty providers and PCP. Mechanical ventilator parameters, treatment and adjustments have personally been reviewed by me and treatment plan by applied researcher has also been reviewed. Dietary Evaluation Review Comments: 1) If patient remains NPO > 7 days, consider EN/TPN to meet at least 75% estimated needs 2) If GI route is preferred, consider Nepro @ 25 mL/hr goal rate as tolerated. EN regimen will provide 1080 kcals, 49g Pro, and 447 mL free H2O per 24 hrs. EN regimen will meet ~90% estimated daily energy needs and ~47% estimated daily protein needs 3) Initiate Nephro-Susan @ 1 tb qd 4) Advance to 60g CCHO renal standard diet when medically feasible, pending [employer] approval 5) Follow-up with nephrology, cardiology, and pulmonology 6) Continue to monitor I&O, labs, and skin integrity Expected Outcomes/Goals: 1) patient to receive nutrition support within 7 days of NPO status 2) labs to improve 3) wound to improve 4) patient to be extubated and diet to advance 5) f/u in 2-3 days Plan discussed with: SHAUN Pérez MD Jun 15, 2024 15:49
[2024-06-16] VITALS (117 sets, daily range): BP systolic 129–186; BP diastolic 39–64; PULSE 16–72; RESP 18–19; TEMP 97–98.4; O2SAT 95–99
--- NOTE | 2024-06-16 03:48 | DVH ---
CHEST RADIOGRAPH Indication: RESPIRATORY FAILURE Technique: Single frontal view of the chest was obtained COMPARISON: XY CHEST PORTABLE on DOS: 06/15/24, XY CHEST XRAY 1 VIEW on DOS: 06/14/24, XY CHEST PORTABL E on DOS: 06/12/24, XY CHEST XRAY 1 VIEW on DOS: 06/11/24, XY CHEST PORTABLE on DOS: 06/10/24 FINDINGS: Lines and Tubes: Unchanged. Lungs: Moderate increased left hemithoracic opacification. The right lung is clear. Pleura: Stable small bilateral pleural effusions. No pneumothorax. Cardiomediastinal contours: Unremarkable Bones: Unremarkable IMPRESSION: 1. Moderate increased left hemithoracic opacification. 2. Stable small bilateral pleural effusions. 3. Lines and tubes unchanged.
[2024-06-16 03:53] LABS: Basophils # (auto) 0 10 ^3/uL (0-0.2); Eosinophils # (auto) 0 10 ^3/uL (0-0.8); Hemoglobin 10.3 g/dL (12.2-16.2); Lymphocytes # (auto) 0.2 10 ^3/uL (0.4-5.4); Monocytes # (auto) 0 10 ^3/uL (0-1.3); Neutrophils # (auto) 0.3 10 ^3/uL (1.6-8.6)
[2024-06-16 03:56] LABS: Hematocrit 30.6 % (36.0-46.0); Lymphocytes % (auto) 35.8 % (10.0-50.0); Mean Corpuscular Hemoglobin 29.2 pg (28.0-32.0); Mean Corpuscular Hgb Conc. 33.8 g/dL (32.0-36.0); Mean Corpuscular Volume 86.5 fL (80.0-100.0); Monocytes % (auto) 2.2 % (0.0-12.0); Nucleated Red Blood Cells % 0.3 %; Platelet Count (auto) 136 10^3/uL (140-450); Red Blood Cells 3.53 10^6/uL (4.0-5.20); Red Cell Distribution Width 15.9 % (11.8-14.3)
[2024-06-16 03:59] LABS: White Blood Cell 0.5 10^3/uL (4.4-10.8)
[2024-06-16 04:09] LABS: Anion Gap 11 (5-15); Carbon Dioxide 24 mmol/L (20-31)
[2024-06-16 04:10] LABS: Calcium 9.6 mg/dL (8.7-10.4)
[2024-06-16 04:15] LABS: BUN/Creatinine Ratio 5.8 (10.0-20.0)
[2024-06-16 04:20] LABS: Blood Urea Nitrogen 38 mg/dL (9-23); Chloride 94 mmol/L (98-107); Glucose 174 mg/dL (74-106); Potassium 5.1 mmol/L (3.5-5.1); Sodium 129 mmol/L (136-145)
[2024-06-16 04:48] LABS: Platelet Estimate Decreased
[2024-06-16 07:16] LABS: Base Excess -1.1 mmol/L (-2.0-3.0)
--- NOTE | 2024-06-16 08:57 | DVHPN2 ---
Progress Note - Dictate Date Seen: Jun 16, 2024 Medical Necessity Reason Pt with a Central, PICC or Fol: Yes The following are medically ne: Eagle Catheter Reason for eagle catheter: Strict I&O Subjective Patient is intubated and sedated on ventilator. severe neutropenia vital signs Vital Sign Date Time Temp Pulse Resp B/P (MAP) Pulse Ox O2 Delivery O2 Flow Rate FiO2 06/16/24 08:01 57 18 97 30 06/16/24 04:00 98.4 98.4 06/15/24 20:00 Mechanical Ventilator+ Total Intake and Output 06/15/24 06/15/24 06/16/24 15:00 23:00 07:00 Intake Total 570 ml 516.5 ml 702.0 ml Output Total 30 ml 10 ml Balance 570 ml 486.5 ml 692.0 ml medications Current Medications Medications Dose Ordered Sig/Eric Route Start Time Stop Time Status Last Admin Dose Admin Ondansetron HCl 4 mg Q4HP PRN IV 06/11/24 02:00 Nitroglycerin 0.4 mg Q5MINP PRN SL 06/11/24 02:00 Morphine Sulfate 2 mg Q30M PRN IV 06/11/24 02:00 Aspirin 81 mg DAILY PO 06/11/24 10:00 06/13/24 11:17 81 MG Atorvastatin Calcium 40 mg HS PO 06/11/24 22:00 06/15/24 21:36 40 MG Albuterol 2.5 mg Q4HPRN PRN NEB 06/11/24 02:00 06/15/24 02:08 2.5 MG Ipratropium [place] 0.5 mg Q4HPRN PRN NEB 06/11/24 02:00 06/15/24 02:08 0.5 MG Midazolam HCl 50 ml @ 1 mls/hr Q24H IV 06/11/24 02:15 06/16/24 05:17 1 MLS/HR Fentanyl Citrate 250 ml @ 2.5 mls/hr Q24H IV 06/11/24 02:15 06/16/24 05:10 7.5 MLS/HR Labetalol HCl 10 mg Q2HPRN PRN IV 06/11/24 04:30 06/16/24 01:21 10 MG Nicardipine HCl 250 ml @ 50 mls/hr Q5H IV 06/11/24 04:45 06/15/24 03:01 50 MLS/HR Heparin Sodium (Porcine) 5,000 units Q12HR SC 06/11/24 10:00 06/15/24 21:42 5,000 UNITS Pantoprazole Sodium 40 mg DAILY IV 06/11/24 10:00 06/15/24 10:17 40 MG Dextrose 50 ml UD PRN IV 06/11/24 07:15 06/12/24 14:52 50 ML Vancomycin HCl 0 ml @ 0 mls/hr UD IV 06/11/24 12:45 Ceftriaxone Sodium 50 ml @ 100 mls/hr DAILY@09 IV 06/13/24 09:00 06/15/24 08:25 100 MLS/HR Acetaminophen 650 mg Q6HP PRN GT 06/11/24 23:45 06/12/24 02:48 650 MG Nicardipine HCl 250 ml @ 50 mls/hr Q5H IV 06/13/24 14:45 UNV Dextrose/Sodium Chloride 1,000 ml @ 50 mls/hr Q20H IV 06/14/24 11:30 06/15/24 15:34 50 MLS/HR Diagnostic Test (Pha) 1 strip Q4HR 06/14/24 14:00 06/16/24 05:08 1 STRIP Methylprednisolone Sodium Succinate 40 mg Q8HR IV 06/15/24 14:00 06/16/24 05:17 40 MG Enteral Nutritional Formula 1,000 ml 25ML/HR GT 06/15/24 13:30 06/15/24 21:22 1,000 ML objective General Appearance: Severe distress, Other (Altered, not arousable,) HEENT: Other (Tongue noted to be swollen rolling into the back of her throat) Respiratory: Other (Intubated on mechanical ventilator) Cardiovascular: Regular rate, Normal S1, Normal S2 Abdominal: Normal bowel sounds, Soft, No tenderness Extremities: Other (BLE pitting edema 3+) Skin: No rashes Neuro: Other (Altered non arousable) Psych/Mental Status: Other (Unable to assess) laboratory and microbiology Laboratory Tests 06/16/24 03:15 Test 06/16/24 03:15 Range/Units Serum Glucose 174 H 74-106 mg/dL Assessment/Plan Patient is a 63-year-old female presents to the hospital with: Patient is a 63-year-old female presents to the hospital with: Severe agranulocytosis Vertebral Discitis subacute CVA Acute encephalopathy Acute hypoxic respiratory S/P intubation on mechanical ventilator Leucopenia ESRD on HD Fluid overload Hypertensive emergency Hx T12 compression fracture Recommendations: patient has severe agranulocytosis possible drug induced i.e vancomycin, will stop for now, monitor peripheral smear manual ordered hold Neupogen until peripheral smear id is done Hematology consult monitor cbc Continue IV Ceftriaxone for now Monitor Vancomycin Trough, on HD 06/14, Vancomycin Random is 33.2 on MV Antibiotic status: Ceftriaxone IV [Started on 06/11 - Ongoing] Vancomycin IV [Started on 06/11 - 06/16] 06/11, Respiratory culture preliminary showed Normal Oropharyngeal Trish 06/11, Blood culture showed no growth 06/13, MRSA screening came back negative Review of Imagin/24, Chest x-ray showed Cardiomegaly with mild congestion. Prognosis guarded crit time 30 minutes spent, plan communicated to RN plan discussed with Dr Mccollum Thank you for consult. Dietary Evaluation Review Comments: 1) If patient remains NPO > 7 days, consider EN/TPN to meet at least 75% estimated needs 2) If GI route is preferred, consider Nepro @ 25 mL/hr goal rate as tolerated. EN regimen will provide 1080 kcals, 49g Pro, and 447 mL free H2O per 24 hrs. EN regimen will meet ~90% estimated daily energy needs and ~47% estimated daily protein needs 3) Initiate Nephro-Susan @ 1 tb qd 4) Advance to 60g CCHO renal standard diet when medically feasible, pending [facility] approval 5) Follow-up with nephrology, cardiology, and pulmonology 6) Continue to monitor I&O, labs, and skin integrity Expected Outcomes/Goals: 1) patient to receive nutrition support within 7 days of NPO status 2) labs to improve 3) wound to improve 4) patient to be extubated and diet to advance 5) f/u in 2-3 days Plan discussed with: GONZÁLEZ Vidal MD Jun 16, 2024 08:56
--- NOTE | 2024-06-16 09:12 | DVHPN2 ---
Progress Note - Dictate Date Seen: Jun 16, 2024 Medical Necessity Reason Pt with a Central, PICC or Fol: Yes The following are medically ne: Eagle Catheter Reason for eagle catheter: Strict I&O Subjective Ms. Dawkins is a 63 years old female with a history of chronic kidney failure on hemodialysis, recent spine fracture, she came to the [facility] on 06/10/2024 with a chief company of back pain. I have seen and examined the patient, I have discussed with her nurse and other medical staff, the patient was remained intubated, sedated, but is respond to light painful stimuli I have discussed her MRI/CT feel with in-house radiologist, Dr. Pepe, he was agreed the MRI/CT showed evidence of two chronic strokes in the left hemisphere The gas in the thoracic spine, according to Dr. Pepe, slightly related to degeneration Blood culture, 06/11/2024: Urinalysis, 06/11/2024: Negative Plasma alcohol, 06/10/2024: <3 ABG, 06/08/2024: Respiratory alkalosis WBC/HB/PLT/MCV, 06/11/2024: 1.7/10.5/114/89.3, 06/15/2024: 2.2/9.7/124/87.7, 06/16/2024: 0.5/10.3/136/86.5 Na, 06/10/2024: 136, 06/12/2024: 133, 06/14/2024: 125, 06/15/24: 130 BUN/CR, 05/2624: 47/7.51, 06/15/2024: 31/5.74 HGB A1c, 06/11/2024: 4.3 Liver function tests, 06/10/2024: Unremarkable TG/HDL/LDL/HDL, 06/11/2024: 63/106/47/40 Echocardiogram, 06/11/2024: LVEF is normal 50-55% Rv function normal Moderate pericardial effusion with no evidence of tamponade Large left pleural effusion Chest x-ray, 06/11/2024: Lines and tubes in satisfactory position. No significant interval change Chest x-ray, 06/15/2024: 1. Mild diffuse increased prominence of the pulmonary vasculature. 2. Lines and tubes unchanged CT head, 06/10/2024: Subacute stroke involving the left frontal lobe white matter which also may involve the left temporal lobe as well can not rule out acute features CT head, neck, 06/10/2024: No significant vascular stenosis involving the head / neck. Moderate occlusion of the bilateral V4 segments vertebral arteries due to calcified and noncalcified plaques CT T-spine, 06/10/2024: No evidence of fracture in the thoracic spine CT lumbar spine, 06/10/2024: No acute fracture. Grade 1 anterolisthesis at L4-L5 with bilateral pars defects. Moderate to severe endplate degenerative changes at L4-L5, T12-L1, and L5-S1. There is severe spinal canal narrowing at L4-L5. Partially visualized moderate bilateral pleural effusions. Mild diffuse anasarca MRI head, 06/12/2024: 1. There is no acute intracranial process. 2. Chronic infarct in the superolateral left frontal lobe. (I saw another possible chronic stroke: Images 16) vital signs Vital Sign Date Time Temp Pulse Resp B/P (MAP) Pulse Ox O2 Delivery O2 Flow Rate FiO2 06/16/24 08:01 57 18 97 30 06/16/24 08:00 Mechanical Ventilator+ 06/16/24 04:00 98.4 98.4 Total Intake and Output 06/15/24 06/15/24 06/16/24 15:00 23:00 07:00 Intake Total 570 ml 516.5 ml 702.0 ml Output Total 30 ml 10 ml Balance 570 ml 486.5 ml 692.0 ml medications Current Medications Medications Dose Ordered Sig/Eric Route Start Time Stop Time Status Last Admin Dose Admin Ondansetron HCl 4 mg Q4HP PRN IV 06/11/24 02:00 Nitroglycerin 0.4 mg Q5MINP PRN SL 06/11/24 02:00 Morphine Sulfate 2 mg Q30M PRN IV 06/11/24 02:00 Aspirin 81 mg DAILY PO 06/11/24 10:00 06/13/24 11:17 81 MG Atorvastatin Calcium 40 mg HS PO 06/11/24 22:00 06/15/24 21:36 40 MG Albuterol 2.5 mg Q4HPRN PRN NEB 06/11/24 02:00 06/15/24 02:08 2.5 MG Ipratropium [place] 0.5 mg Q4HPRN PRN NEB 06/11/24 02:00 06/15/24 02:08 0.5 MG Midazolam HCl 50 ml @ 1 mls/hr Q24H IV 06/11/24 02:15 06/16/24 05:17 1 MLS/HR Fentanyl Citrate 250 ml @ 2.5 mls/hr Q24H IV 06/11/24 02:15 06/16/24 05:10 7.5 MLS/HR Labetalol HCl 10 mg Q2HPRN PRN IV 06/11/24 04:30 06/16/24 01:21 10 MG Nicardipine HCl 250 ml @ 50 mls/hr Q5H IV 06/11/24 04:45 06/15/24 03:01 50 MLS/HR Heparin Sodium (Porcine) 5,000 units Q12HR SC 06/11/24 10:00 06/15/24 21:42 5,000 UNITS Pantoprazole Sodium 40 mg DAILY IV 06/11/24 10:00 06/15/24 10:17 40 MG Dextrose 50 ml UD PRN IV 06/11/24 07:15 06/12/24 14:52 50 ML Vancomycin HCl 0 ml @ 0 mls/hr UD IV 06/11/24 12:45 Ceftriaxone Sodium 50 ml @ 100 mls/hr DAILY@09 IV 06/13/24 09:00 06/15/24 08:25 100 MLS/HR Acetaminophen 650 mg Q6HP PRN GT 06/11/24 23:45 06/12/24 02:48 650 MG Nicardipine HCl 250 ml @ 50 mls/hr Q5H IV 06/13/24 14:45 UNV Dextrose/Sodium Chloride 1,000 ml @ 50 mls/hr Q20H IV 06/14/24 11:30 06/15/24 15:34 50 MLS/HR Diagnostic Test (Pha) 1 strip Q4HR 06/14/24 14:00 06/16/24 05:08 1 STRIP Methylprednisolone Sodium Succinate 40 mg Q8HR IV 06/15/24 14:00 06/16/24 05:17 40 MG Enteral Nutritional Formula 1,000 ml 25ML/HR GT 06/15/24 13:30 06/15/24 21:22 1,000 ML objective The patient is well-nourished and well-developed with no distress. The patient is intubated MENTAL STATUS: Subjective CRANIAL NERVES: Pupils are equal, round and reactive.There are corneal reflexes and doll's eyes phenomenon. No signs of facial weakness. There are very weak gagging or coughing reflexes SENSATION: Slightly responses to strong pain stimuli. MOTOR: Normal tone in the upper and lower extremity. Normal muscle bulk. No fasciculations. No spontaneous movement. REFLEXES: Deep tendon reflexes are symmetrical. No pathological reflexes. CEREBELLAR/COORDINATION: Deferred GAIT/STATION: deferred. laboratory and microbiology Laboratory Tests 06/16/24 03:15 Test 06/16/24 03:15 Range/Units Serum Glucose 174 H 74-106 mg/dL Problem List 2 chronic strokes in the left hemisphere per MRI and CT scan, asymptomatic Acute low back pain to rule out diskitis Acute respiratory failure Pancytopenia Hyponatremia Hypokalemia Chronic kidney failure Assessment/Plan Monitoring Supportive treatment ICU care Reverse isolation EEG Blood culture Follow-up labs Stabilize vitals/pressor drip Respiratory support/vent management IV antibiotics Aspirin 81 mg daily Lipitor 40 mg daily DVT prophylaxis GI prophylaxis Consult hematology Infectious disease on case Cardiology on case Pulmonary on case Nephrology on case More recommendation per clinical course This medical document was created using an electronic medical record system with [employer] computerized dictation system. Although this document has been carefully reviewed, there may still be some phonetic and typographical errors. These areas are purely typographical due to imperfections of the software programs, and do not reflect any compromise in the patient's medical care Prognosis guarded Dietary Evaluation Review Comments: 1) If patient remains NPO > 7 days, consider EN/TPN to meet at least 75% estimated needs 2) If GI route is preferred, consider Nepro @ 25 mL/hr goal rate as tolerated. EN regimen will provide 1080 kcals, 49g Pro, and 447 mL free H2O per 24 hrs. EN regimen will meet ~90% estimated daily energy needs and ~47% estimated daily protein needs 3) Initiate Nephro-Susan @ 1 tb qd 4) Advance to 60g CCHO renal standard diet when medically feasible, pending [employer] approval 5) Follow-up with nephrology, cardiology, and pulmonology 6) Continue to monitor I&O, labs, and skin integrity Expected Outcomes/Goals: 1) patient to receive nutrition support within 7 days of NPO status 2) labs to improve 3) wound to improve 4) patient to be extubated and diet to advance 5) f/u in 2-3 days Plan discussed with: Other Critical Care Time(min): 40 FORD PEPE MD Jun 16, 2024 09:12
--- NOTE | 2024-06-16 10:31 | DVHPN2 ---
Progress Note - Dictate Date Seen: Jun 16, 2024 Medical Necessity Reason Pt with a Central, PICC or Fol: Yes The following are medically ne: Eagle Catheter Reason for eagle catheter: Strict I&O vital signs Vital Sign Date Time Temp Pulse Resp B/P (MAP) Pulse Ox O2 Delivery O2 Flow Rate FiO2 06/16/24 09:59 70 18 140/59 (86) 97 30 06/16/24 08:00 Mechanical Ventilator+ 06/16/24 04:00 98.4 98.4 Total Intake and Output 06/15/24 06/15/24 06/16/24 15:00 23:00 07:00 Intake Total 570 ml 516.5 ml 702.0 ml Output Total 30 ml 10 ml Balance 570 ml 486.5 ml 692.0 ml medications Current Medications Medications Dose Ordered Sig/Eric Route Start Time Stop Time Status Last Admin Dose Admin Ondansetron HCl 4 mg Q4HP PRN IV 06/11/24 02:00 Nitroglycerin 0.4 mg Q5MINP PRN SL 06/11/24 02:00 Morphine Sulfate 2 mg Q30M PRN IV 06/11/24 02:00 Aspirin 81 mg DAILY PO 06/11/24 10:00 06/13/24 11:17 81 MG Atorvastatin Calcium 40 mg HS PO 06/11/24 22:00 06/15/24 21:36 40 MG Albuterol 2.5 mg Q4HPRN PRN NEB 06/11/24 02:00 06/15/24 02:08 2.5 MG Ipratropium [place] 0.5 mg Q4HPRN PRN NEB 06/11/24 02:00 06/15/24 02:08 0.5 MG Midazolam HCl 50 ml @ 1 mls/hr Q24H IV 06/11/24 02:15 06/16/24 05:17 1 MLS/HR Fentanyl Citrate 250 ml @ 2.5 mls/hr Q24H IV 06/11/24 02:15 06/16/24 05:10 7.5 MLS/HR Labetalol HCl 10 mg Q2HPRN PRN IV 06/11/24 04:30 06/16/24 01:21 10 MG Nicardipine HCl 250 ml @ 50 mls/hr Q5H IV 06/11/24 04:45 06/15/24 03:01 50 MLS/HR Heparin Sodium (Porcine) 5,000 units Q12HR SC 06/11/24 10:00 06/15/24 21:42 5,000 UNITS Pantoprazole Sodium 40 mg DAILY IV 06/11/24 10:00 06/15/24 10:17 40 MG Dextrose 50 ml UD PRN IV 06/11/24 07:15 06/12/24 14:52 50 ML Vancomycin HCl 0 ml @ 0 mls/hr UD IV 06/11/24 12:45 Ceftriaxone Sodium 50 ml @ 100 mls/hr DAILY@09 IV 06/13/24 09:00 06/16/24 09:51 100 MLS/HR Acetaminophen 650 mg Q6HP PRN GT 06/11/24 23:45 06/12/24 02:48 650 MG Nicardipine HCl 250 ml @ 50 mls/hr Q5H IV 06/13/24 14:45 UNV Dextrose/Sodium Chloride 1,000 ml @ 50 mls/hr Q20H IV 06/14/24 11:30 06/15/24 15:34 50 MLS/HR Diagnostic Test (Pha) 1 strip Q4HR 06/14/24 14:00 06/16/24 05:08 1 STRIP Methylprednisolone Sodium Succinate 40 mg Q8HR IV 06/15/24 14:00 06/16/24 05:17 40 MG Enteral Nutritional Formula 1,000 ml 25ML/HR GT 06/15/24 13:30 06/15/24 21:22 1,000 ML laboratory and microbiology Laboratory Tests 06/16/24 03:15 Test 06/16/24 03:15 Range/Units Serum Glucose 174 H 74-106 mg/dL Assessment/Plan Impression: Acute hypoxic respiratory failure Altered mental status Acute CVA Acute encephalopathy ESRD on hemodialysis Patient seen and examined in ICU Events: On mechanical ventilation S/p intubation for airway protection PEEP 5, FiO2 30% pt neutropenic no fever YIB=[id number] consistent with severe neutropenia Labs and imaging reviewed CXR reviewed, demonstrates cardiomegaly with mild congestion. Devices in place. Plan: neupogen hematology consult may need BM bx Vent support Titrate FIO2 to keep O2 saturation above 90%. Daily ABG and CXR while intubated Sedate for ventilator synchrony Sedation holiday daily check for cuff leak If patient follows commands, proceed to weaning trial Pressure support 08/23, extubate when ready Pressors as necessary for hemodynamic support Titrate to keep mean arterial pressure greater than 65 mmHg. HD per Nephrology Monitor renal function Monitor electrolytes. Supplement as necessary. Monitor ins and outs. Maintain euvolemia. nutrition/glycemic control GI prophylaxis. DVT prophylaxis. Critical care time 35 minutes Dietary Evaluation Review Comments: 1) If patient remains NPO > 7 days, consider EN/TPN to meet at least 75% estimated needs 2) If GI route is preferred, consider Nepro @ 25 mL/hr goal rate as tolerated. EN regimen will provide 1080 kcals, 49g Pro, and 447 mL free H2O per 24 hrs. EN regimen will meet ~90% estimated daily energy needs and ~47% estimated daily protein needs 3) Initiate Nephro-Susan @ 1 tb qd 4) Advance to 60g CCHO renal standard diet when medically feasible, pending [facility] approval 5) Follow-up with nephrology, cardiology, and pulmonology 6) Continue to monitor I&O, labs, and skin integrity Expected Outcomes/Goals: 1) patient to receive nutrition support within 7 days of NPO status 2) labs to improve 3) wound to improve 4) patient to be extubated and diet to advance 5) f/u in 2-3 days Plan discussed with: Other (rn) MECHE STEWARD MD Jun 16, 2024 10:31
--- NOTE | 2024-06-16 15:52 | DVHPN2 ---
Subjective Patient was remains intubated and sedated, patient's WBC count is less than one, neutropenic precautions provided. Reviewed: Care Plan Changes from previous H/P or p: No Changes Objective Vitals Vital Signs Date Time Temp Pulse Resp B/P (MAP) Pulse Ox O2 Delivery O2 Flow Rate FiO2 06/16/24 15:28 55 18 155/50 (85) 97 30 06/16/24 12:01 97.5 97.5 06/16/24 08:00 Mechanical Ventilator+ Intake/Output Intake and Output 06/16/24 07:00 Intake Total 1847.0 ml Output Total 40 ml Balance 1807.0 ml Intake Oral 50 ml IV Total 1687.0 ml Tube Feeding 110 ml Output Urine Total 40 ml Stool Total 0 ml Exam HEENT pupils are reactive , positive scleral edema, positive tongue swelling 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 no edema 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 Medications Current Medications Medications Dose Ordered Sig/Eric Route Start Time Stop Time Status Last Admin Dose Admin Ondansetron HCl 4 mg Q4HP PRN IV 06/11/24 02:00 Nitroglycerin 0.4 mg Q5MINP PRN SL 06/11/24 02:00 Morphine Sulfate 2 mg Q30M PRN IV 06/11/24 02:00 Aspirin 81 mg DAILY PO 06/11/24 10:00 06/16/24 14:34 81 MG Atorvastatin Calcium 40 mg HS PO 06/11/24 22:00 06/15/24 21:36 40 MG Albuterol 2.5 mg Q4HPRN PRN NEB 06/11/24 02:00 06/15/24 02:08 2.5 MG Ipratropium [place] 0.5 mg Q4HPRN PRN NEB 06/11/24 02:00 06/15/24 02:08 0.5 MG Midazolam HCl 50 ml @ 1 mls/hr Q24H IV 06/11/24 02:15 06/16/24 05:17 1 MLS/HR Fentanyl Citrate 250 ml @ 2.5 mls/hr Q24H IV 06/11/24 02:15 06/16/24 05:10 7.5 MLS/HR Labetalol HCl 10 mg Q2HPRN PRN IV 06/11/24 04:30 06/16/24 01:21 10 MG Nicardipine HCl 250 ml @ 50 mls/hr Q5H IV 06/11/24 04:45 06/15/24 03:01 50 MLS/HR Heparin Sodium (Porcine) 5,000 units Q12HR SC 06/11/24 10:00 06/16/24 10:50 5,000 UNITS Pantoprazole Sodium 40 mg DAILY IV 06/11/24 10:00 06/16/24 10:49 40 MG Dextrose 50 ml UD PRN IV 06/11/24 07:15 06/12/24 14:52 50 ML Ceftriaxone Sodium 50 ml @ 100 mls/hr DAILY@09 IV 06/13/24 09:00 06/16/24 09:51 100 MLS/HR Acetaminophen 650 mg Q6HP PRN GT 06/11/24 23:45 06/12/24 02:48 650 MG Nicardipine HCl 250 ml @ 50 mls/hr Q5H IV 06/13/24 14:45 UNV Dextrose/Sodium Chloride 1,000 ml @ 50 mls/hr Q20H IV 06/14/24 11:30 06/16/24 11:30 50 MLS/HR Methylprednisolone Sodium Succinate 40 mg Q8HR IV 06/15/24 14:00 06/16/24 14:35 40 MG Enteral Nutritional Formula 1,000 ml 25ML/HR GT 06/15/24 13:30 06/15/24 21:22 1,000 ML Diagnostic Test (Pha) 1 strip Q6HR 06/16/24 18:00 Laboratory Results Laboratory Tests 06/16/24 03:15 Chemistry Test 06/16/24 03:15 Calcium Level 9.6 mg/dL (8.7-10.4) Urinalysis Test 06/11/24 03:00 Urine Color Light-yellow (Yellow) Urine Clarity Turbid (Clear) H Urine pH 8.0 (5.0-9.0) Urine Specific [place] 1.008 (1.001-1.035) Urine Protein 3+ (Negative) H Urine Ketones Negative (Negative) Urine Blood Negative /uL (Negative) Urine Nitrite Negative (Negative) Urine Bilirubin Negative (Negative) Urine Urobilinogen Normal mg/dL (Negative) Urine Leukocyte Esterase 1+ /uL (Negative) Urine RBC 10 /hpf (0 - 4) Urine Microscopic WBC 41 /HPF (0-5) H Urine Squamous Epithelial Cells Mod /hpf (<5) Urine Bacteria None seen /hpf (None Seen) Urine Glucose 2+ mg/dL (Normal) H Blood Gas Results Test 06/16/24 06:55 Arterial Blood pH 7.489 (7.350-7.450) FiO2 % 30.0 Microbiology Microbiology Date/Time Source Procedure Growth Status 06/13/24 08:45 Nose MRSA Screen - Final Complete 06/11/24 23:55 Blood Blood Culture - Preliminary NO GROWTH AFTER 72 HOURS OF INCUBATION. Resulted Assessment/Plan Assessment/Plan 63-year-old female with a known history of hypertension, dyslipidemia, coronary artery disease, anxiety disorder, recent mechanical fall found to have acute small T12 compression fracture, L3-4 lumbar diskitis presented to the hospital with right-sided weakness altered mental status eventually intubated in the ER for airway protection. Patient was found to have acute/subacute left frontal and temporal infarct currently MRI brain is pending. 1. Acute hypoxic respiratory failure requiring intubation with mechanical ventilation secondary to metabolic encephalopathy 2. 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 Hypertensive emergency with the end-organ involvement , off the nicardipine drip 5. End-stage renal disease on hemodialysis received hemodialysis on06/14 6. Coronary artery disease 7. L3-4 lumbar diskitis/osteomyelitis, resume IV vancomycin and consult infectious disease specialist 8. Hyponatremia, continue IV fluids D5 NS 8. Neutropenia, rule out hematological disorder -peripheral blood smear, hematology oncology consultation. -discontinue IV vancomycin as per Infectious Disease. -continue ceftriaxone patient was remains critical prognosis-remained guarded -plan of care discussed with the bedside RN Jazmin. -hemodialysis per Nephrology Plan discussed with: Other My Orders Orders - BENJA ROBBINS MD Procedure Category Date Status Time Chest Portable XY 06/16/24 Resulted 04:00 Glucose Blood PHA 06/16/24 In Process (Accu-Chek Comfort 18:00 Date of Service: Jun 16, 2024 Billing Provider: BNEJA ROBBINS MD Common Visit Codes: NOT BILLABLE BENJA ROBBINS MD Jun 16, 2024 15:52
[2024-06-16] MEDS: FILGRASTIM (TBO) 300 MCG/0.5 ML SYRG SC ONE (16:00)
[2024-06-16] MEDS: ACCU-CHEK COMFORT CURVE STRIP VI SCH (17:50)
--- NOTE | 2024-06-16 19:57 | DVHPN2 ---
Progress Note - Dictate Date Seen: Jun 16, 2024 Medical Necessity Reason Pt with a Central, PICC or Fol: Yes The following are medically ne: Eagle Catheter Reason for eagle catheter: Strict I&O Subjective Gen: On mechanical ventilation Lungs Diminished air entry at bases CV: RR, no pericardial rub Abdomen: soft, mildly distended, low BS Trace edema of legs vital signs Vital Sign Date Time Temp Pulse Resp B/P (MAP) Pulse Ox O2 Delivery O2 Flow Rate FiO2 06/16/24 18:46 54 18 164/47 (86) 96 06/16/24 18:13 30 06/16/24 18:13 Mechanical Ventilator 06/16/24 16:01 97.5 97.5 Total Intake and Output 06/15/24 06/15/24 06/16/24 15:00 23:00 07:00 Intake Total 570 ml 516.5 ml 760.5 ml Output Total 30 ml 10 ml Balance 570 ml 486.5 ml 750.5 ml medications Current Medications Medications Dose Ordered Sig/Eirc Route Start Time Stop Time Status Last Admin Dose Admin Ondansetron HCl 4 mg Q4HP PRN IV 06/11/24 02:00 Nitroglycerin 0.4 mg Q5MINP PRN SL 06/11/24 02:00 Morphine Sulfate 2 mg Q30M PRN IV 06/11/24 02:00 Aspirin 81 mg DAILY PO 06/11/24 10:00 06/16/24 14:34 81 MG Atorvastatin Calcium 40 mg HS PO 06/11/24 22:00 06/15/24 21:36 40 MG Albuterol 2.5 mg Q4HPRN PRN NEB 06/11/24 02:00 06/15/24 02:08 2.5 MG Ipratropium [place] 0.5 mg Q4HPRN PRN NEB 06/11/24 02:00 06/15/24 02:08 0.5 MG Midazolam HCl 50 ml @ 1 mls/hr Q24H IV 06/11/24 02:15 06/16/24 05:17 1 MLS/HR Fentanyl Citrate 250 ml @ 2.5 mls/hr Q24H IV 06/11/24 02:15 06/16/24 05:10 7.5 MLS/HR Labetalol HCl 10 mg Q2HPRN PRN IV 06/11/24 04:30 06/16/24 01:21 10 MG Nicardipine HCl 250 ml @ 50 mls/hr Q5H IV 06/11/24 04:45 06/15/24 03:01 50 MLS/HR Heparin Sodium (Porcine) 5,000 units Q12HR SC 06/11/24 10:00 06/16/24 10:50 5,000 UNITS Pantoprazole Sodium 40 mg DAILY IV 06/11/24 10:00 06/16/24 10:49 40 MG Dextrose 50 ml UD PRN IV 06/11/24 07:15 06/12/24 14:52 50 ML Ceftriaxone Sodium 50 ml @ 100 mls/hr DAILY@09 IV 06/13/24 09:00 06/16/24 09:51 100 MLS/HR Acetaminophen 650 mg Q6HP PRN GT 06/11/24 23:45 06/12/24 02:48 650 MG Nicardipine HCl 250 ml @ 50 mls/hr Q5H IV 06/13/24 14:45 UNV Dextrose/Sodium Chloride 1,000 ml @ 50 mls/hr Q20H IV 06/14/24 11:30 06/16/24 11:30 50 MLS/HR Methylprednisolone Sodium Succinate 40 mg Q8HR IV 06/15/24 14:00 06/16/24 14:35 40 MG Enteral Nutritional Formula 1,000 ml 25ML/HR GT 06/15/24 13:30 06/15/24 21:22 1,000 ML Diagnostic Test (Pha) 1 strip Q6HR 06/16/24 18:00 06/16/24 17:50 1 STRIP Hydralazine HCl 10 mg Q6HPRN PRN IV 06/17/24 00:00 laboratory and microbiology Laboratory Tests 06/16/24 03:15 Test 06/16/24 03:15 Range/Units Serum Glucose 174 H 74-106 mg/dL Assessment/Plan 1. End-stage renal disease on HD 2. Hyponatremia 3. Anemia of renal disease. Continue IV Epogen with dialysis. 4. She appears to be leukopenic, I suggest Hematology consultation. 5. Respiratory failure, on mechanical ventilation for airway protection. 6. Subacute stroke. 7. T-spine fracture. Plan: HD to continue on TTS schedule Next HD on Sunday DC IVF on tube feeding Daily BMP ANANTH post HD as needed, goal Hb: 10-11 g/dl Dietary Evaluation Review Comments: 1) If patient remains NPO > 7 days, consider EN/TPN to meet at least 75% estimated needs 2) If GI route is preferred, consider Nepro @ 25 mL/hr goal rate as tolerated. EN regimen will provide 1080 kcals, 49g Pro, and 447 mL free H2O per 24 hrs. EN regimen will meet ~90% estimated daily energy needs and ~47% estimated daily protein needs 3) Initiate Nephro-Susan @ 1 tb qd 4) Advance to 60g [facility] renal standard diet when medically feasible, pending [facility] approval 5) Follow-up with nephrology, cardiology, and pulmonology 6) Continue to monitor I&O, labs, and skin integrity Expected Outcomes/Goals: 1) patient to receive nutrition support within 7 days of NPO status 2) labs to improve 3) wound to improve 4) patient to be extubated and diet to advance 5) f/u in 2-3 days Plan discussed with: Other ILANA PATINO MD Jun 16, 2024 19:57
[2024-06-16] MEDS: hydrALAZINE HCL 20 MG/ML VL IV PRN (23:04)
--- NOTE | 2024-06-16 23:31 | DVHPN2 ---
Progress Note - Dictate Date Seen: Jun 16, 2024 Medical Necessity Reason Pt with a Central, PICC or Fol: Yes The following are medically ne: Eagle Catheter Reason for eagle catheter: Strict I&O Subjective Patient was seen and evaluated in follow up in the ICU. Patient is intubated and sedated on ventilator. 30% FiO2. Patients WBC is less than 1, on neutropenic precautions. 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 vital signs Vital Sign Date Time Temp Pulse Resp B/P (MAP) Pulse Ox O2 Delivery O2 Flow Rate FiO2 06/16/24 23:16 59 19 161/46 (84) 95 06/16/24 22:00 30 06/16/24 20:01 97.7 97.7 06/16/24 20:00 Mechanical Ventilator+ Total Intake and Output 06/15/24 06/15/24 06/16/24 15:00 23:00 07:00 Intake Total 570 ml 516.5 ml 760.5 ml Output Total 30 ml 10 ml Balance 570 ml 486.5 ml 750.5 ml medications Current Medications Medications Dose Ordered Sig/Eric Route Start Time Stop Time Status Last Admin Dose Admin Ondansetron HCl 4 mg Q4HP PRN IV 06/11/24 02:00 Nitroglycerin 0.4 mg Q5MINP PRN SL 06/11/24 02:00 Morphine Sulfate 2 mg Q30M PRN IV 06/11/24 02:00 Aspirin 81 mg DAILY PO 06/11/24 10:00 06/16/24 14:34 81 MG Atorvastatin Calcium 40 mg HS PO 06/11/24 22:00 06/16/24 21:51 40 MG Albuterol 2.5 mg Q4HPRN PRN NEB 06/11/24 02:00 06/15/24 02:08 2.5 MG Ipratropium [place] 0.5 mg Q4HPRN PRN NEB 06/11/24 02:00 06/15/24 02:08 0.5 MG Midazolam HCl 50 ml @ 1 mls/hr Q24H IV 06/11/24 02:15 06/16/24 05:17 1 MLS/HR Fentanyl Citrate 250 ml @ 2.5 mls/hr Q24H IV 06/11/24 02:15 06/16/24 05:10 7.5 MLS/HR Labetalol HCl 10 mg Q2HPRN PRN IV 06/11/24 04:30 06/16/24 01:21 10 MG Nicardipine HCl 250 ml @ 50 mls/hr Q5H IV 06/11/24 04:45 06/15/24 03:01 50 MLS/HR Heparin Sodium (Porcine) 5,000 units Q12HR SC 06/11/24 10:00 06/16/24 21:55 5,000 UNITS Pantoprazole Sodium 40 mg DAILY IV 06/11/24 10:00 06/16/24 10:49 40 MG Dextrose 50 ml UD PRN IV 06/11/24 07:15 06/12/24 14:52 50 ML Ceftriaxone Sodium 50 ml @ 100 mls/hr DAILY@09 IV 06/13/24 09:00 06/16/24 09:51 100 MLS/HR Acetaminophen 650 mg Q6HP PRN GT 06/11/24 23:45 06/12/24 02:48 650 MG Nicardipine HCl 250 ml @ 50 mls/hr Q5H IV 06/13/24 14:45 UNV Methylprednisolone Sodium Succinate 40 mg Q8HR IV 06/15/24 14:00 06/16/24 21:51 40 MG Enteral Nutritional Formula 1,000 ml 25ML/HR GT 06/15/24 13:30 06/15/24 21:22 1,000 ML Diagnostic Test (Pha) 1 strip Q6HR 06/16/24 18:00 06/16/24 17:50 1 STRIP Hydralazine HCl 10 mg Q6HPRN PRN IV 06/17/24 00:00 06/16/24 23:04 10 MG objective GENERAL: Intubated on ventilator. EYES: PERRL, EOMI. Anicteric. HENT: Moist mucous membranes. LUNGS: Decreased breath sounds. CARDIOVASCULAR: Regular rate and rhythm. ABDOMEN: Soft, nontender and nondistended. EXTREMITIES: No edema. NEUROLOGIC: No focal neurological deficits. SKIN: Warm, dry. laboratory and microbiology Laboratory Tests 06/16/24 03:15 Test 06/16/24 03:15 Range/Units Serum Glucose 174 H 74-106 mg/dL Problem List Acute CVA. Hypertensive emergency. Questionable coronary artery disease. Moderate pericardial effusion. Acute hypoxic respiratory failure. End-stage renal disease on hemodialysis. History of T12 compression fracture. Assessment/Plan Continued all current supportive medical care. Aspirin, Lipitor. IV antibiotics as ordered. Vasopressors for hemodynamic support. Nitro SL. Morphine for pain management. Additional plan as per the hospital course. Critical care time of 45 minutes provided to include time spent evaluation of patient at bedside, when appropriate patient/family education for diagnosis, treatment plan, review of pertinent medical information and discussion of care with specialty providers and PCP. Mechanical ventilator parameters, treatment and adjustments have personally been reviewed by me and treatment plan by traveling freight agent has also been reviewed. Dietary Evaluation Review Comments: 1) If patient remains NPO > 7 days, consider EN/TPN to meet at least 75% estimated needs 2) If GI route is preferred, consider Nepro @ 25 mL/hr goal rate as tolerated. EN regimen will provide 1080 kcals, 49g Pro, and 447 mL free H2O per 24 hrs. EN regimen will meet ~90% estimated daily energy needs and ~47% estimated daily protein needs 3) Initiate Nephro-Susan @ 1 tb qd 4) [facility] diet when medically feasible, pending [facility] approval 5) Follow-up with nephrology, cardiology, and pulmonology 6) Continue to monitor I&O, labs, and skin integrity Expected Outcomes/Goals: 1) patient to receive nutrition support within 7 days of NPO status 2) labs to improve 3) wound to improve 4) patient to be extubated and diet to advance 5) f/u in 2-3 days Plan discussed with: SHAUN Pérez MD Jun 16, 2024 23:31
[2024-06-17] VITALS (118 sets, daily range): BP systolic 129–173; BP diastolic 38–65; PULSE 52–94; RESP 16–22; TEMP 97.6–98.4; O2SAT 94–100
[2024-06-17 03:51] LABS: Hematocrit 29.8 % (36.0-46.0); Hemoglobin 9.9 g/dL (12.2-16.2); Mean Corpuscular Hgb Conc. 33.2 g/dL (32.0-36.0); Mean Corpuscular Volume 87.3 fL (80.0-100.0); Platelet Count (auto) 152 10^3/uL (140-450); Red Blood Cells 3.41 10^6/uL (4.0-5.20); Red Cell Distribution Width 15.7 % (11.8-14.3); White Blood Cell 7.2 10^3/uL (4.4-10.8)
[2024-06-17 03:55] LABS: Basophils % (manual) 0 (0.0-2.0); Blast Cells 0; Eosinophils % (manual) 0 (0-7); Metamyelocytes % 0; Myelocytes % 0; Promyelocytes % 0; Reactive Lymphocytes 0
[2024-06-17 03:58] LABS: Alkaline Phosphatase 112 U/L (46-116); Anion Gap 11 (5-15); BUN/Creatinine Ratio 6.9 (10.0-20.0); Calcium 9.6 mg/dL (8.7-10.4); Carbon Dioxide 23 mmol/L (20-31)
[2024-06-17 03:59] LABS: Albumin 3.3 g/dL (3.2-4.8)
[2024-06-17 04:14] LABS: Alanine Aminotransferase < 9 U/L (7-40); Aspartate Aminotransferase 11 U/L (13-40); Bilirubin, Total 0.2 mg/dL (0.2-1.0); Blood Urea Nitrogen 49 mg/dL (9-23); Chloride 95 mmol/L (98-107); Glucose 190 mg/dL (74-106); Sodium 129 mmol/L (136-145)
--- NOTE | 2024-06-17 05:08 | DVH ---
EXAM: XR Chest, 1 View CLINICAL INDICATION: VENTED TECHNIQUE: Frontal view of the chest. COMPARISON: XY CHEST PORTABLE on DOS: 06/16/24, XY CHEST PORTABLE on DOS: 06/15/24, XY CHEST XRAY 1 V IEW on DOS: 06/14/24, XY CHEST PORTABLE on DOS: 06/12/24, XY CHEST XRAY 1 VIEW on DOS: 06/11/24 FINDINGS: LUNGS AND PLEURAL SPACES: Pulmonary venous congestion. Left pleural effusion. No consolidation. No pneumothorax. HEART: Unremarkable. No cardiomegaly. MEDIASTINUM: Unremarkable. Normal mediastinal contour. BONES/JOINTS: Unremarkable. No acute fracture. TUBES, LINES AND DEVICES: Right internal jugular central venous catheter tip in the superior vena c neeta. The endotracheal tube (ETT) is in satisfactory position. Enteric tube tip cannot be seen but i s below the diaphragm. OTHER FINDINGS: . . . IMPRESSION: 1. Pulmonary venous congestion. 2. Left pleural effusion.
[2024-06-17 05:47] LABS: Band Neutrophils % (manual) 3; Lymphocytes % (manual) 5 (10.0-50.0); Monocytes % (manual) 2 (0-12); Platelet Estimate Adequate
[2024-06-17 07:15] LABS: Base Excess -0.5 mmol/L (-2.0-3.0)
--- NOTE | 2024-06-17 11:21 | DVHPN2 ---
Progress Note - Dictate Date Seen: Jun 17, 2024 Medical Necessity Reason Pt with a Central, PICC or Fol: Yes The following are medically ne: Eagle Catheter Reason for eagle catheter: Strict I&O Subjective Ms. Dawkins is a 63 years old female with a history of chronic kidney failure on hemodialysis, recent spine fracture, she came to the [facility] on 06/10/2024 with a chief company of back pain. I have seen and examined the patient, I have discussed with her nurse and other medical staff, the patient was remained intubated, sedated, but is respond to light painful stimuli The gas in the thoracic spine, according to Dr. Pepe, was related to degeneration Fentanyl 100 mcg/hour Blood culture, 06/11/2024: Urinalysis, 06/11/2024: Negative Plasma alcohol, 06/10/2024: <3 ABG, 06/08/2024: Respiratory alkalosis WBC/HB/PLT/MCV, 06/11/2024: 1.7/10.5/114/89.3, 06/15/2024: 2.2/9.7/124/87.7, 06/16/2024: 0.5/10.3/136/86.5, 06/17/2024: 7.2/9.9/152/87.3 Na, 06/10/2024: 136, 06/12/2024: 133, 06/14/2024: 125, 06/15/24: 130 BUN/CR, 05/2624: 47/7.51, 06/15/2024: 31/5.74 HGB A1c, 06/11/2024: 4.3 Liver function tests, 06/10/2024: Unremarkable TG/HDL/LDL/HDL, 06/11/2024: 63/106/47/40 Echocardiogram, 06/11/2024: LVEF is normal 50-55% Rv function normal Moderate pericardial effusion with no evidence of tamponade Large left pleural effusion Chest x-ray, 06/11/2024: Lines and tubes in satisfactory position. No significant interval change Chest x-ray, 06/15/2024: 1. Mild diffuse increased prominence of the pulmonary vasculature. 2. Lines and tubes unchanged CT head, 06/10/2024: Subacute stroke involving the left frontal lobe white matter which also may involve the left temporal lobe as well can not rule out acute features CT head, neck, 06/10/2024: No significant vascular stenosis involving the head / neck. Moderate occlusion of the bilateral V4 segments vertebral arteries due to calcified and noncalcified plaques CT T-spine, 06/10/2024: No evidence of fracture in the thoracic spine CT lumbar spine, 06/10/2024: No acute fracture. Grade 1 anterolisthesis at L4-L5 with bilateral pars defects. Moderate to severe endplate degenerative changes at L4-L5, T12-L1, and L5-S1. There is severe spinal canal narrowing at L4-L5. Partially visualized moderate bilateral pleural effusions. Mild diffuse anasarca MRI head, 06/12/2024: 1. There is no acute intracranial process. 2. Chronic infarct in the superolateral left frontal lobe. (I saw another possible chronic stroke: Images 16) vital signs Vital Sign Date Time Temp Pulse Resp B/P (MAP) Pulse Ox O2 Delivery O2 Flow Rate FiO2 06/17/24 10:31 59 18 146/44 (78) 96 06/17/24 10:03 30 06/17/24 08:01 98.0 98.0 06/17/24 08:00 Mechanical Ventilator+ Total Intake and Output 06/16/24 06/16/24 06/17/24 15:00 23:00 07:00 Intake Total 585.5 ml 581 ml 228 ml Output Total 10 ml 10 ml Balance 585.5 ml 571 ml 218 ml medications Current Medications Medications Dose Ordered Sig/Eric Route Start Time Stop Time Status Last Admin Dose Admin Ondansetron HCl 4 mg Q4HP PRN IV 06/11/24 02:00 Nitroglycerin 0.4 mg Q5MINP PRN SL 06/11/24 02:00 Morphine Sulfate 2 mg Q30M PRN IV 06/11/24 02:00 Aspirin 81 mg DAILY PO 06/11/24 10:00 06/17/24 10:19 81 MG Atorvastatin Calcium 40 mg HS PO 06/11/24 22:00 06/16/24 21:51 40 MG Albuterol 2.5 mg Q4HPRN PRN NEB 06/11/24 02:00 06/15/24 02:08 2.5 MG Ipratropium [place] 0.5 mg Q4HPRN PRN NEB 06/11/24 02:00 06/15/24 02:08 0.5 MG Midazolam HCl 50 ml @ 1 mls/hr Q24H IV 06/11/24 02:15 06/16/24 05:17 1 MLS/HR Fentanyl Citrate 250 ml @ 2.5 mls/hr Q24H IV 06/11/24 02:15 06/17/24 05:58 10 MLS/HR Labetalol HCl 10 mg Q2HPRN PRN IV 06/11/24 04:30 06/16/24 01:21 10 MG Nicardipine HCl 250 ml @ 50 mls/hr Q5H IV 06/11/24 04:45 06/15/24 03:01 50 MLS/HR Heparin Sodium (Porcine) 5,000 units Q12HR SC 06/11/24 10:00 06/17/24 10:17 5,000 UNITS Pantoprazole Sodium 40 mg DAILY IV 06/11/24 10:00 06/17/24 10:16 40 MG Dextrose 50 ml UD PRN IV 06/11/24 07:15 06/12/24 14:52 50 ML Ceftriaxone Sodium 50 ml @ 100 mls/hr DAILY@09 IV 06/13/24 09:00 06/17/24 08:59 100 MLS/HR Acetaminophen 650 mg Q6HP PRN GT 06/11/24 23:45 06/12/24 02:48 650 MG Nicardipine HCl 250 ml @ 50 mls/hr Q5H IV 06/13/24 14:45 UNV Methylprednisolone Sodium Succinate 40 mg Q8HR IV 06/15/24 14:00 06/17/24 05:55 40 MG Enteral Nutritional Formula 1,000 ml 25ML/HR GT 06/15/24 13:30 06/15/24 21:22 1,000 ML Diagnostic Test (Pha) 1 strip Q6HR 06/16/24 18:00 06/17/24 06:12 1 STRIP Hydralazine HCl 10 mg Q6HPRN PRN IV 06/17/24 00:00 06/16/24 23:04 10 MG objective The patient is well-nourished and well-developed with no distress. The patient is intubated MENTAL STATUS: Subjective CRANIAL NERVES: Pupils are equal, round and reactive.There are corneal reflexes and doll's eyes phenomenon. No signs of facial weakness. There are very weak gagging or coughing reflexes SENSATION: Slightly responses to strong pain stimuli. MOTOR: Normal tone in the upper and lower extremity. Normal muscle bulk. No fasciculations. No spontaneous movement. REFLEXES: Deep tendon reflexes are symmetrical. No pathological reflexes. CEREBELLAR/COORDINATION: Deferred GAIT/STATION: deferred. laboratory and microbiology Laboratory Tests 06/17/24 03:00 Test 06/17/24 03:00 Range/Units Serum Glucose 190 H 74-106 mg/dL Problem List 2 chronic strokes in the left hemisphere per MRI and CT scan, asymptomatic Acute low back pain to rule out diskitis Acute respiratory failure Pancytopenia, better Hyponatremia Hypokalemia Chronic kidney failure Assessment/Plan Monitoring Supportive treatment ICU care EEG Blood culture Follow-up labs Stabilize vitals/pressor drip Respiratory support/vent management IV antibiotics Aspirin 81 mg daily Lipitor 40 mg daily DVT prophylaxis GI prophylaxis Consult hematology Infectious disease on case Cardiology on case Pulmonary on case Nephrology on case More recommendation per clinical course This medical document was created using an electronic medical record system with [employer] dictation system. Although this document has been carefully reviewed, there may still be some phonetic and typographical errors. These areas are purely typographical due to imperfections of the software programs, and do not reflect any compromise in the patient's medical care Prognosis guarded Dietary Evaluation Review Comments: 1) If patient remains NPO > 7 days, consider EN/TPN to meet at least 75% estimated needs 2) If GI route is preferred, consider Nepro @ 25 mL/hr goal rate as tolerated. EN regimen will provide 1080 kcals, 49g Pro, and 447 mL free H2O per 24 hrs. EN regimen will meet ~90% estimated daily energy needs and ~47% estimated daily protein needs 3) Initiate Nephro-Ussan @ 1 tb qd 4) [facility] to [facility] diet when medically feasible, pending [facility] approval 5) Follow-up with nephrology, cardiology, and pulmonology 6) Continue to monitor I&O, labs, and skin integrity Expected Outcomes/Goals: 1) patient to receive nutrition support within 7 days of NPO status 2) labs to improve 3) wound to improve 4) patient to be extubated and diet to advance 5) f/u in 2-3 days Plan discussed with: Other Critical Care Time(min): 30 FORD PEPE MD Jun 17, 2024 11:21
--- NOTE | 2024-06-17 12:32 | DVHPN2 ---
Progress Note - Dictate Date Seen: Jun 17, 2024 Medical Necessity Reason Pt with a Central, PICC or Fol: Yes The following are medically ne: Eagle Catheter Reason for eagle catheter: Strict I&O Subjective Patient is intubated and sedated on ventilator. wbc went up vital signs Vital Sign Date Time Temp Pulse Resp B/P (MAP) Pulse Ox O2 Delivery O2 Flow Rate FiO2 06/17/24 11:45 55 18 146/46 (79) 96 30 06/17/24 08:01 98.0 98.0 06/17/24 08:00 Mechanical Ventilator+ Total Intake and Output 06/16/24 06/16/24 06/17/24 15:00 23:00 07:00 Intake Total 585.5 ml 581 ml 228 ml Output Total 10 ml 10 ml Balance 585.5 ml 571 ml 218 ml medications Current Medications Medications Dose Ordered Sig/Eric Route Start Time Stop Time Status Last Admin Dose Admin Ondansetron HCl 4 mg Q4HP PRN IV 06/11/24 02:00 Nitroglycerin 0.4 mg Q5MINP PRN SL 06/11/24 02:00 Morphine Sulfate 2 mg Q30M PRN IV 06/11/24 02:00 Aspirin 81 mg DAILY PO 06/11/24 10:00 06/17/24 10:19 81 MG Atorvastatin Calcium 40 mg HS PO 06/11/24 22:00 06/16/24 21:51 40 MG Albuterol 2.5 mg Q4HPRN PRN NEB 06/11/24 02:00 06/15/24 02:08 2.5 MG Ipratropium [place] 0.5 mg Q4HPRN PRN NEB 06/11/24 02:00 06/15/24 02:08 0.5 MG Midazolam HCl 50 ml @ 1 mls/hr Q24H IV 06/11/24 02:15 06/16/24 05:17 1 MLS/HR Fentanyl Citrate 250 ml @ 2.5 mls/hr Q24H IV 06/11/24 02:15 06/17/24 05:58 10 MLS/HR Labetalol HCl 10 mg Q2HPRN PRN IV 06/11/24 04:30 06/16/24 01:21 10 MG Nicardipine HCl 250 ml @ 50 mls/hr Q5H IV 06/11/24 04:45 06/15/24 03:01 50 MLS/HR Heparin Sodium (Porcine) 5,000 units Q12HR SC 06/11/24 10:00 06/17/24 10:17 5,000 UNITS Pantoprazole Sodium 40 mg DAILY IV 06/11/24 10:00 06/17/24 10:16 40 MG Dextrose 50 ml UD PRN IV 06/11/24 07:15 06/12/24 14:52 50 ML Ceftriaxone Sodium 50 ml @ 100 mls/hr DAILY@09 IV 06/13/24 09:00 06/17/24 08:59 100 MLS/HR Acetaminophen 650 mg Q6HP PRN GT 06/11/24 23:45 06/12/24 02:48 650 MG Nicardipine HCl 250 ml @ 50 mls/hr Q5H IV 06/13/24 14:45 UNV Methylprednisolone Sodium Succinate 40 mg Q8HR IV 06/15/24 14:00 06/17/24 05:55 40 MG Enteral Nutritional Formula 1,000 ml 25ML/HR GT 06/15/24 13:30 06/15/24 21:22 1,000 ML Diagnostic Test (Pha) 1 strip Q6HR 06/16/24 18:00 06/17/24 06:12 1 STRIP Hydralazine HCl 10 mg Q6HPRN PRN IV 06/17/24 00:00 06/16/24 23:04 10 MG objective General Appearance: Severe distress, Other (Altered, not arousable,) HEENT: Other (Tongue noted to be swollen rolling into the back of her throat) Respiratory: Other (Intubated on mechanical ventilator) Cardiovascular: Regular rate, Normal S1, Normal S2 Abdominal: Normal bowel sounds, Soft, No tenderness Extremities: Other (BLE pitting edema 3+) Skin: No rashes Neuro: Other (Altered non arousable) Psych/Mental Status: Other (Unable to assess) laboratory and microbiology Laboratory Tests 06/17/24 03:00 Test 06/17/24 03:00 Range/Units Serum Glucose 190 H 74-106 mg/dL Assessment/Plan Patient is a 63-year-old female presents to the hospital with: Severe agranulocytosis Vertebral Discitis subacute CVA Acute encephalopathy Acute hypoxic respiratory S/P intubation on mechanical ventilator Leucopenia ESRD on HD Fluid overload Hypertensive emergency Hx T12 compression fracture Recommendations: patient has severe agranulocytosis possible drug induced i.e vancomycin, will stop for now, monitor peripheral smear manual ordered wbc went up. Hematology consult monitor cbc Continue IV Ceftriaxone for now; vancomycin on hold Monitor Vancomycin Trough, on HD 06/14, Vancomycin Random is 33.2 on MV Antibiotic status: Ceftriaxone IV [Started on 06/11 - Ongoing] Vancomycin IV [Started on 06/11 - 06/16] 06/11, Respiratory culture preliminary showed Normal Oropharyngeal Trish 06/11, Blood culture showed no growth 06/13, MRSA screening came back negative Review of Imagin/24, Chest x-ray showed Cardiomegaly with mild congestion. Prognosis guarded crit time 30 minutes spent, plan communicated to RN plan discussed with Dr Mccollum Thank you for consult. Dietary Evaluation Review Comments: 1) If patient remains NPO > 7 days, consider EN/TPN to meet at least 75% estimated needs 2) If GI route is preferred, consider Nepro @ 25 mL/hr goal rate as tolerated. EN regimen will provide 1080 kcals, 49g Pro, and 447 mL free H2O per 24 hrs. EN regimen will meet ~90% estimated daily energy needs and ~47% estimated daily protein needs 3) Initiate Nephro-Susan @ 1 tb qd 4) Advance to 60g [facility] renal standard diet when medically feasible, pending [facility] approval 5) Follow-up with nephrology, cardiology, and pulmonology 6) Continue to monitor I&O, labs, and skin integrity Expected Outcomes/Goals: 1) patient to receive nutrition support within 7 days of NPO status 2) labs to improve 3) wound to improve 4) patient to be extubated and diet to advance 5) f/u in 2-3 days Plan discussed with: GONZÁLEZ Vidal MD Jun 17, 2024 12:32
--- NOTE | 2024-06-17 12:54 | DVHPN2 ---
Progress Note - Dictate Date Seen: Jun 17, 2024 Medical Necessity Reason Pt with a Central, PICC or Fol: Yes The following are medically ne: Eagle Catheter Reason for eagle catheter: Strict I&O vital signs Vital Sign Date Time Temp Pulse Resp B/P (MAP) Pulse Ox O2 Delivery O2 Flow Rate FiO2 06/17/24 11:45 55 18 146/46 (79) 96 30 06/17/24 08:01 98.0 98.0 06/17/24 08:00 Mechanical Ventilator+ Total Intake and Output 06/16/24 06/16/24 06/17/24 15:00 23:00 07:00 Intake Total 585.5 ml 581 ml 228 ml Output Total 10 ml 10 ml Balance 585.5 ml 571 ml 218 ml medications Current Medications Medications Dose Ordered Sig/Eric Route Start Time Stop Time Status Last Admin Dose Admin Ondansetron HCl 4 mg Q4HP PRN IV 06/11/24 02:00 Nitroglycerin 0.4 mg Q5MINP PRN SL 06/11/24 02:00 Morphine Sulfate 2 mg Q30M PRN IV 06/11/24 02:00 Aspirin 81 mg DAILY PO 06/11/24 10:00 06/17/24 10:19 81 MG Atorvastatin Calcium 40 mg HS PO 06/11/24 22:00 06/16/24 21:51 40 MG Albuterol 2.5 mg Q4HPRN PRN NEB 06/11/24 02:00 06/15/24 02:08 2.5 MG Ipratropium [place] 0.5 mg Q4HPRN PRN NEB 06/11/24 02:00 06/15/24 02:08 0.5 MG Midazolam HCl 50 ml @ 1 mls/hr Q24H IV 06/11/24 02:15 06/16/24 05:17 1 MLS/HR Fentanyl Citrate 250 ml @ 2.5 mls/hr Q24H IV 06/11/24 02:15 06/17/24 05:58 10 MLS/HR Labetalol HCl 10 mg Q2HPRN PRN IV 06/11/24 04:30 06/16/24 01:21 10 MG Nicardipine HCl 250 ml @ 50 mls/hr Q5H IV 06/11/24 04:45 06/15/24 03:01 50 MLS/HR Heparin Sodium (Porcine) 5,000 units Q12HR SC 06/11/24 10:00 06/17/24 10:17 5,000 UNITS Pantoprazole Sodium 40 mg DAILY IV 06/11/24 10:00 06/17/24 10:16 40 MG Dextrose 50 ml UD PRN IV 06/11/24 07:15 06/12/24 14:52 50 ML Ceftriaxone Sodium 50 ml @ 100 mls/hr DAILY@09 IV 06/13/24 09:00 06/17/24 08:59 100 MLS/HR Acetaminophen 650 mg Q6HP PRN GT 06/11/24 23:45 06/12/24 02:48 650 MG Nicardipine HCl 250 ml @ 50 mls/hr Q5H IV 06/13/24 14:45 UNV Methylprednisolone Sodium Succinate 40 mg Q8HR IV 06/15/24 14:00 06/17/24 05:55 40 MG Enteral Nutritional Formula 1,000 ml 25ML/HR GT 06/15/24 13:30 06/15/24 21:22 1,000 ML Diagnostic Test (Pha) 1 strip Q6HR 06/16/24 18:00 06/17/24 12:44 1 STRIP Hydralazine HCl 10 mg Q6HPRN PRN IV 06/17/24 00:00 06/16/24 23:04 10 MG laboratory and microbiology Laboratory Tests 06/17/24 03:00 Test 06/17/24 03:00 Range/Units Serum Glucose 190 H 74-106 mg/dL Assessment/Plan Impression: Acute hypoxic respiratory failure Altered mental status Acute CVA Acute encephalopathy ESRD on hemodialysis Patient seen and examined in ICU Events: On mechanical ventilation S/p intubation for airway protection PEEP 5, FiO2 30% responded to neupogen Labs and imaging reviewed CXR reviewed, demonstrates cardiomegaly with mild congestion. Devices in place. Plan: Vent support Titrate FIO2 to keep O2 saturation above 90%. Daily ABG and CXR while intubated Sedate for ventilator synchrony Sedation holiday daily check for cuff leak If patient follows commands, proceed to weaning trial Pressure support 08/23, extubate when ready extubate when ready Pressors as necessary for hemodynamic support Titrate to keep mean arterial pressure greater than 65 mmHg. HD per Nephrology Monitor renal function Monitor electrolytes. Supplement as necessary. Monitor ins and outs. Maintain euvolemia. nutrition/glycemic control GI prophylaxis. DVT prophylaxis. Critical care time 35 minutes Dietary Evaluation Review Comments: 1) If patient remains NPO > 7 days, consider EN/TPN to meet at least 75% estimated needs 2) If GI route is preferred, consider Nepro @ 25 mL/hr goal rate as tolerated. EN regimen will provide 1080 kcals, 49g Pro, and 447 mL free H2O per 24 hrs. EN regimen will meet ~90% estimated daily energy needs and ~47% estimated daily protein needs 3) Initiate Nephro-Susan @ 1 tb qd 4) Advance to 60g [facility] renal standard diet when medically feasible, pending [facility] approval 5) Follow-up with nephrology, cardiology, and pulmonology 6) Continue to monitor I&O, labs, and skin integrity Expected Outcomes/Goals: 1) patient to receive nutrition support within 7 days of NPO status 2) labs to improve 3) wound to improve 4) patient to be extubated and diet to advance 5) f/u in 2-3 days Plan discussed with: Other (rn) MECHE STEWARD MD Jun 17, 2024 12:54
--- NOTE | 2024-06-17 13:55 | DVHPN2 ---
Progress Note - Dictate Date Seen: Jun 17, 2024 Medical Necessity Reason Pt with a Central, PICC or Fol: Yes The following are medically ne: Eagle Catheter Reason for eagle catheter: Strict I&O Subjective remains intubated vital signs Vital Sign Date Time Temp Pulse Resp B/P (MAP) Pulse Ox O2 Delivery O2 Flow Rate FiO2 06/17/24 12:00 30 06/17/24 12:00 57 06/17/24 11:45 18 146/46 (79) 96 06/17/24 08:01 98.0 98.0 06/17/24 08:00 Mechanical Ventilator+ Total Intake and Output 06/16/24 06/16/24 06/17/24 15:00 23:00 07:00 Intake Total 585.5 ml 581 ml 238 ml Output Total 10 ml 10 ml Balance 585.5 ml 571 ml 228 ml medications Current Medications Medications Dose Ordered Sig/Eric Route Start Time Stop Time Status Last Admin Dose Admin Ondansetron HCl 4 mg Q4HP PRN IV 06/11/24 02:00 Nitroglycerin 0.4 mg Q5MINP PRN SL 06/11/24 02:00 Morphine Sulfate 2 mg Q30M PRN IV 06/11/24 02:00 Aspirin 81 mg DAILY PO 06/11/24 10:00 06/17/24 10:19 81 MG Atorvastatin Calcium 40 mg HS PO 06/11/24 22:00 06/16/24 21:51 40 MG Albuterol 2.5 mg Q4HPRN PRN NEB 06/11/24 02:00 06/15/24 02:08 2.5 MG Ipratropium [place] 0.5 mg Q4HPRN PRN NEB 06/11/24 02:00 06/15/24 02:08 0.5 MG Midazolam HCl 50 ml @ 1 mls/hr Q24H IV 06/11/24 02:15 06/16/24 05:17 1 MLS/HR Fentanyl Citrate 250 ml @ 2.5 mls/hr Q24H IV 06/11/24 02:15 06/17/24 05:58 10 MLS/HR Labetalol HCl 10 mg Q2HPRN PRN IV 06/11/24 04:30 06/16/24 01:21 10 MG Nicardipine HCl 250 ml @ 50 mls/hr Q5H IV 06/11/24 04:45 06/15/24 03:01 50 MLS/HR Heparin Sodium (Porcine) 5,000 units Q12HR SC 06/11/24 10:00 06/17/24 10:17 5,000 UNITS Pantoprazole Sodium 40 mg DAILY IV 06/11/24 10:00 06/17/24 10:16 40 MG Dextrose 50 ml UD PRN IV 06/11/24 07:15 06/12/24 14:52 50 ML Ceftriaxone Sodium 50 ml @ 100 mls/hr DAILY@09 IV 06/13/24 09:00 06/17/24 08:59 100 MLS/HR Acetaminophen 650 mg Q6HP PRN GT 06/11/24 23:45 06/12/24 02:48 650 MG Nicardipine HCl 250 ml @ 50 mls/hr Q5H IV 06/13/24 14:45 UNV Methylprednisolone Sodium Succinate 40 mg Q8HR IV 06/15/24 14:00 06/17/24 05:55 40 MG Enteral Nutritional Formula 1,000 ml 25ML/HR GT 06/15/24 13:30 06/15/24 21:22 1,000 ML Diagnostic Test (Pha) 1 strip Q6HR 06/16/24 18:00 06/17/24 12:44 1 STRIP Hydralazine HCl 10 mg Q6HPRN PRN IV 06/17/24 00:00 06/16/24 23:04 10 MG objective Gen: On mechanical ventilation Lungs Diminished air entry at bases CV: RR, no pericardial rub Abdomen: soft, mildly distended, low BS Trace edema of legs laboratory and microbiology Laboratory Tests 06/17/24 03:00 Test 06/17/24 03:00 Range/Units Serum Glucose 190 H 74-106 mg/dL Assessment/Plan 1. End-stage renal disease on HD 2. Hyponatremia 3. Anemia of renal disease. Continue IV Epogen with dialysis. 4. She appears to be leukopenic, I suggest Hematology consultation. 5. Respiratory failure, on mechanical ventilation for airway protection. 6. Subacute stroke. 7. T-spine fracture. Plan: HD to continue on TTS schedule HD - Sunday on tube feeding Daily BMP ANANTH post HD as needed, goal Hb: 10-11 g/dl Dietary Evaluation Review Comments: 1) If patient remains NPO > 7 days, consider EN/TPN to meet at least 75% estimated needs 2) If GI route is preferred, consider Nepro @ 25 mL/hr goal rate as tolerated. EN regimen will provide 1080 kcals, 49g Pro, and 447 mL free H2O per 24 hrs. EN regimen will meet ~90% estimated daily energy needs and ~47% estimated daily protein needs 3) Initiate Nephro-Susan @ 1 tb qd 4) Advance to 60g CCHO renal standard diet when medically feasible, pending [facility] approval 5) Follow-up with nephrology, cardiology, and pulmonology 6) Continue to monitor I&O, labs, and skin integrity Expected Outcomes/Goals: 1) patient to receive nutrition support within 7 days of NPO status 2) labs to improve 3) wound to improve 4) patient to be extubated and diet to advance 5) f/u in 2-3 days Plan discussed with: Patient ILANA PATINO MD Jun 17, 2024 13:55
--- NOTE | 2024-06-17 15:21 | DVHPN2 ---
Subjective Patient remains intubated and sedated, patient has received one dose of Neupogen , WBC count 7.2, patient is currently on sedation fentanyl 100 mcg IV which were discontinued to give CPAP trial. Reviewed: Care Plan Changes from previous H/P or p: No Changes Objective Vitals Vital Signs Date Time Temp Pulse Resp B/P (MAP) Pulse Ox O2 Delivery O2 Flow Rate FiO2 06/17/24 15:00 76 18 147/53 (84) 96 06/17/24 14:14 30 06/17/24 12:00 97.7 97.7 06/17/24 08:00 Mechanical Ventilator+ Intake/Output Intake and Output 06/17/24 07:00 Intake Total 1404.5 ml Output Total 20 ml Balance 1384.5 ml Intake Oral 120 ml IV Total 1009.5 ml Tube Feeding 275 ml Output Urine Total 20 ml Exam HEENT pupils are reactive , positive scleral edema, positive tongue swelling 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 no edema AQUATICS COORDINATOR intubated and sedated Medications Current Medications Medications Dose Ordered Sig/Eric Route Start Time Stop Time Status Last Admin Dose Admin Ondansetron HCl 4 mg Q4HP PRN IV 06/11/24 02:00 Nitroglycerin 0.4 mg Q5MINP PRN SL 06/11/24 02:00 Morphine Sulfate 2 mg Q30M PRN IV 06/11/24 02:00 Aspirin 81 mg DAILY PO 06/11/24 10:00 06/17/24 10:19 81 MG Atorvastatin Calcium 40 mg HS PO 06/11/24 22:00 06/16/24 21:51 40 MG Albuterol 2.5 mg Q4HPRN PRN NEB 06/11/24 02:00 06/15/24 02:08 2.5 MG Ipratropium [place] 0.5 mg Q4HPRN PRN NEB 06/11/24 02:00 06/15/24 02:08 0.5 MG Midazolam HCl 50 ml @ 1 mls/hr Q24H IV 06/11/24 02:15 06/16/24 05:17 1 MLS/HR Fentanyl Citrate 250 ml @ 2.5 mls/hr Q24H IV 06/11/24 02:15 06/17/24 05:58 10 MLS/HR Labetalol HCl 10 mg Q2HPRN PRN IV 06/11/24 04:30 06/16/24 01:21 10 MG Nicardipine HCl 250 ml @ 50 mls/hr Q5H IV 06/11/24 04:45 06/15/24 03:01 50 MLS/HR Heparin Sodium (Porcine) 5,000 units Q12HR SC 06/11/24 10:00 06/17/24 10:17 5,000 UNITS Pantoprazole Sodium 40 mg DAILY IV 06/11/24 10:00 06/17/24 10:16 40 MG Dextrose 50 ml UD PRN IV 06/11/24 07:15 06/12/24 14:52 50 ML Ceftriaxone Sodium 50 ml @ 100 mls/hr DAILY@09 IV 06/13/24 09:00 06/17/24 08:59 100 MLS/HR Acetaminophen 650 mg Q6HP PRN GT 06/11/24 23:45 06/12/24 02:48 650 MG Nicardipine HCl 250 ml @ 50 mls/hr Q5H IV 06/13/24 14:45 UNV Methylprednisolone Sodium Succinate 40 mg Q8HR IV 06/15/24 14:00 06/17/24 14:23 40 MG Enteral Nutritional Formula 1,000 ml 25ML/HR GT 06/15/24 13:30 06/15/24 21:22 1,000 ML Diagnostic Test (Pha) 1 strip Q6HR 06/16/24 18:00 06/17/24 12:44 1 STRIP Hydralazine HCl 10 mg Q6HPRN PRN IV 06/17/24 00:00 06/16/24 23:04 10 MG Laboratory Results Laboratory Tests 06/17/24 03:00 Chemistry Test 06/17/24 03:00 Albumin 3.3 g/dL (3.2-4.8) Calcium Level 9.6 mg/dL (8.7-10.4) Total Protein 6.0 g/dL (5.7-8.2) LFT Test 06/17/24 03:00 Alanine Aminotransferase (ALT) < 9 U/L (7-40) Alkaline Phosphatase 112 U/L (46-116) Aspartate Amino Transferase (AST) 11 U/L (13-40) L Total Bilirubin 0.2 mg/dL (0.2-1.0) Urinalysis Test 06/11/24 03:00 Urine Color Light-yellow (Yellow) Urine Clarity Turbid (Clear) H Urine pH 8.0 (5.0-9.0) Urine Specific [place] 1.008 (1.001-1.035) Urine Protein 3+ (Negative) H Urine Ketones Negative (Negative) Urine Blood Negative /uL (Negative) Urine Nitrite Negative (Negative) Urine Bilirubin Negative (Negative) Urine Urobilinogen Normal mg/dL (Negative) Urine Leukocyte Esterase 1+ /uL (Negative) Urine RBC 10 /hpf (0 - 4) Urine Microscopic WBC 41 /HPF (0-5) H Urine Squamous Epithelial Cells Mod /hpf (<5) Urine Bacteria None seen /hpf (None Seen) Urine Glucose 2+ mg/dL (Normal) H Blood Gas Results Test 06/17/24 07:05 Arterial Blood pH 7.479 (7.350-7.450) FiO2 % 30.0 Microbiology Microbiology Date/Time Source Procedure Growth Status 06/13/24 08:45 Nose MRSA Screen - Final Complete 06/11/24 23:55 Blood Blood Culture - Final NO GROWTH AFTER 5 DAYS OF INCUBATION. Complete Assessment/Plan Assessment/Plan 63-year-old female with a known history of hypertension, dyslipidemia, coronary artery disease, anxiety disorder, recent mechanical fall found to have acute small T12 compression fracture, L3-4 lumbar diskitis presented to the hospital with right-sided weakness altered mental status eventually intubated in the ER for airway protection. Patient was found to have acute/subacute left frontal and temporal infarct currently MRI brain is pending. 1. Acute hypoxic respiratory failure requiring intubation with mechanical ventilation secondary to metabolic encephalopathy 2. 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 Hypertensive emergency with the end-organ involvement , off the nicardipine drip 5. End-stage renal disease on hemodialysis received hemodialysis on06/14 6. Coronary artery disease 7. L3-4 lumbar diskitis/osteomyelitis, resume IV vancomycin and consult infectious disease specialist 8. Hyponatremia, continue IV fluids D5 NS 8. Neutropenia, status post Neupogen one dose resolved - -discontinue IV vancomycin as per Infectious Disease. -continue ceftriaxone patient was remains critical prognosis-remained guarded -plan of care discussed with the bedside DAVID Wu. -hemodialysis per Nephrology Plan discussed with: Other My Orders Orders - BENJA ROBBINS MD Procedure Category Date Status Time Hydralazine Injection PHA 06/17/24 In Process (Apresoline Inject 00:00 Chest Portable XY 06/17/24 Resulted 04:00 Date of Service: Jun 17, 2024 Billing Provider: BENJA ROBBINS MD Common Visit Codes: NOT BILLABLE BENJA ROBBINS MD Jun 17, 2024 15:21
[2024-06-17 16:24] LABS: Folate (Folic Acid) 17.3 ng/mL (>5.38)
[2024-06-17] MEDS: EPOETIN ALFA-EPBX 4,000 UNIT/ML VIAL SC ONE (20:27)
--- NOTE | 2024-06-17 23:18 | DVHPN2 ---
Progress Note - Dictate Date Seen: Jun 17, 2024 Medical Necessity Reason Pt with a Central, PICC or Fol: Yes The following are medically ne: Eagle Catheter Reason for eagle catheter: Strict I&O Subjective Patient was seen and evaluated in follow up in the ICU. Patient is intubated and sedated on ventilator. 30% FiO2. Patient received one dose of Neupogen, WBC improved to 7.2. HGB 9.9, HCT 29.8. NA 129, BUN 49, Software Engineer Developer 7.13. Chest x-ray shows pulmonary venous congestion and left pleural effusion. vital signs Vital Sign Date Time Temp Pulse Resp B/P (MAP) Pulse Ox O2 Delivery O2 Flow Rate FiO2 06/17/24 22:38 66 19 144/43 (76) 96 30 06/17/24 20:00 Mechanical Ventilator+ 06/17/24 20:00 98.4 98.4 06/17/24 18:30 2.0 Total Intake and Output 06/16/24 06/16/24 06/17/24 15:00 23:00 07:00 Intake Total 585.5 ml 581 ml 238 ml Output Total 10 ml 10 ml Balance 585.5 ml 571 ml 228 ml medications Current Medications Medications Dose Ordered Sig/Eric Route Start Time Stop Time Status Last Admin Dose Admin Ondansetron HCl 4 mg Q4HP PRN IV 06/11/24 02:00 Nitroglycerin 0.4 mg Q5MINP PRN SL 06/11/24 02:00 Morphine Sulfate 2 mg Q30M PRN IV 06/11/24 02:00 Aspirin 81 mg DAILY PO 06/11/24 10:00 06/17/24 10:19 81 MG Atorvastatin Calcium 40 mg HS PO 06/11/24 22:00 06/17/24 21:45 40 MG Albuterol 2.5 mg Q4HPRN PRN NEB 06/11/24 02:00 06/15/24 02:08 2.5 MG Ipratropium [place] 0.5 mg Q4HPRN PRN NEB 06/11/24 02:00 06/17/24 18:35 0.5 MG Midazolam HCl 50 ml @ 1 mls/hr Q24H IV 06/11/24 02:15 06/16/24 05:17 1 MLS/HR Fentanyl Citrate 250 ml @ 2.5 mls/hr Q24H IV 06/11/24 02:15 06/17/24 05:58 10 MLS/HR Labetalol HCl 10 mg Q2HPRN PRN IV 06/11/24 04:30 06/16/24 01:21 10 MG Nicardipine HCl 250 ml @ 50 mls/hr Q5H IV 06/11/24 04:45 06/15/24 03:01 50 MLS/HR Heparin Sodium (Porcine) 5,000 units Q12HR SC 06/11/24 10:00 06/17/24 21:46 5,000 UNITS Pantoprazole Sodium 40 mg DAILY IV 06/11/24 10:00 06/17/24 10:16 40 MG Dextrose 50 ml UD PRN IV 06/11/24 07:15 06/12/24 14:52 50 ML Ceftriaxone Sodium 50 ml @ 100 mls/hr DAILY@09 IV 06/13/24 09:00 06/17/24 08:59 100 MLS/HR Acetaminophen 650 mg Q6HP PRN GT 06/11/24 23:45 06/12/24 02:48 650 MG Nicardipine HCl 250 ml @ 50 mls/hr Q5H IV 06/13/24 14:45 UNV Methylprednisolone Sodium Succinate 40 mg Q8HR IV 06/15/24 14:00 06/17/24 21:45 40 MG Enteral Nutritional Formula 1,000 ml 25ML/HR GT 06/15/24 13:30 06/15/24 21:22 1,000 ML Diagnostic Test (Pha) 1 strip Q6HR 06/16/24 18:00 06/17/24 18:13 1 STRIP Hydralazine HCl 10 mg Q6HPRN PRN IV 06/17/24 00:00 06/16/24 23:04 10 MG objective GENERAL: Intubated on ventilator. EYES: PERRL, EOMI. Anicteric. HENT: Moist mucous membranes. LUNGS: Decreased breath sounds. CARDIOVASCULAR: Regular rate and rhythm. ABDOMEN: Soft, nontender and nondistended. EXTREMITIES: No edema. NEUROLOGIC: No focal neurological deficits. SKIN: Warm, dry. laboratory and microbiology Laboratory Tests 06/17/24 03:00 Test 06/17/24 03:00 Range/Units Serum Glucose 190 H 74-106 mg/dL Problem List Acute CVA. Hypertensive emergency. Questionable coronary artery disease. Moderate pericardial effusion. Acute hypoxic respiratory failure. End-stage renal disease on hemodialysis. History of T12 compression fracture. Assessment/Plan Continued all current supportive medical care. Aspirin, Lipitor. IV antibiotics as ordered. Vasopressors for hemodynamic support. Nitro SL. Morphine for pain management. Additional plan as per the hospital course. Critical care time of 45 minutes provided to include time spent evaluation of patient at bedside, when appropriate patient/family education for diagnosis, treatment plan, review of pertinent medical information and discussion of care with specialty providers and PCP. Mechanical ventilator parameters, treatment and adjustments have personally been reviewed by me and treatment plan by transformer stock clerk has also been reviewed. Dietary Evaluation Review Comments: 1) If patient remains NPO > 7 days, consider EN/TPN to meet at least 75% estimated needs 2) If GI route is preferred, consider Nepro @ 25 mL/hr goal rate as tolerated. EN regimen will provide 1080 kcals, 49g Pro, and 447 mL free H2O per 24 hrs. EN regimen will meet ~90% estimated daily energy needs and ~47% estimated daily protein needs 3) Initiate Nephro-Susan @ 1 tb qd 4) Advance to 60g [facility] renal standard diet when medically feasible, pending [facility] approval 5) Follow-up with nephrology, cardiology, and pulmonology 6) Continue to monitor I&O, labs, and skin integrity Expected Outcomes/Goals: 1) patient to receive nutrition support within 7 days of NPO status 2) labs to improve 3) wound to improve 4) patient to be extubated and diet to advance 5) f/u in 2-3 days Plan discussed with: SHAUN Pérez MD Jun 17, 2024 23:18
[2024-06-18] VITALS (112 sets, daily range): BP systolic 130–214; BP diastolic 48–86; PULSE 66–105; RESP 15–22; TEMP 98–98.4; O2SAT 95–100
--- NOTE | 2024-06-18 00:47 | DVHEEG2 ---
Neurology EEG Procedural Note Procedural Note EXAM DATE: 06/13/2024 REFERRING DOCTOR: Dr. Orta TECHNIQUE: Eighteen channels of EEG, 2 channels of EOG, and 1 channel of EKG were recorded using the International 10/20 system. CLINICAL DATA: The patient was referred for an EEG evaluation for the evidence of seizure disorder. MEDICATIONS: See the chart BACKGROUND ACTIVITY: This is a very difficult EEG, there was large amount of environmental artifacts in all the recording traces, possibly the EEG was low amplitude mixed delta and theta activity ACTIVATION: Hyperventilation: Not done Photic Stimulation: Not done Sleep: Nonresponsiveness IMPRESSION: This is a nondiagnostic EEG because of above described technique difficulty. Please consider repeating EEG if a seizure disorder is clinically indicated to rule out The EKG channel showed a regular heart rate of 66/[place] [address] FORD ORTA MD Jun 18, 2024 00:47
--- NOTE | 2024-06-18 03:53 | DVH ---
CHEST RADIOGRAPH Indication: VENTED Technique: Single frontal view of the chest was obtained Comparison: XY CHEST PORTABLE on DOS: 06/17/24, XY CHEST PORTABLE on DOS: 06/16/24, XY CHEST PORTABLE o n DOS: 06/15/24 IMPRESSION: Heart is prominent in size. There is mild pulmonary vascular congestion. Obscuration of the left hem idiaphragm May relate to small effusion with atelectasis or consolidation. No pneumothorax. Support lines and tubes appear unchanged in satisfactory position.
[2024-06-18 03:54] LABS: Hematocrit 34.3 % (36.0-46.0); Hemoglobin 11.6 g/dL (12.2-16.2); Mean Corpuscular Hemoglobin 29.4 pg (28.0-32.0); Mean Corpuscular Hgb Conc. 33.7 g/dL (32.0-36.0); Mean Corpuscular Volume 87.4 fL (80.0-100.0); Platelet Count (auto) 168 10^3/uL (140-450); Red Blood Cells 3.93 10^6/uL (4.0-5.20); Red Cell Distribution Width 16.4 % (11.8-14.3); White Blood Cell 10.5 10^3/uL (4.4-10.8)
[2024-06-18 04:02] LABS: Basophils % (manual) 0 (0.0-2.0); Blast Cells 0; Eosinophils % (manual) 0 (0-7); Metamyelocytes % 0; Myelocytes % 0; Promyelocytes % 0; Reactive Lymphocytes 0
[2024-06-18 04:09] LABS: Alanine Aminotransferase 11 U/L (7-40); Anion Gap 11 (5-15); BUN/Creatinine Ratio 7.4 (10.0-20.0); Calcium 10.1 mg/dL (8.7-10.4); Carbon Dioxide 27 mmol/L (20-31); Chloride 99 mmol/L (98-107); Potassium 3.6 mmol/L (3.5-5.1); Sodium 137 mmol/L (136-145)
[2024-06-18 04:10] LABS: Albumin 3.8 g/dL (3.2-4.8); Aspartate Aminotransferase 20 U/L (13-40)
[2024-06-18 04:11] LABS: Bilirubin, Total 0.3 mg/dL (0.2-1.0)
[2024-06-18 04:18] LABS: Alkaline Phosphatase 147 U/L (46-116); Blood Urea Nitrogen 39 mg/dL (9-23); Glucose 201 mg/dL (74-106)
[2024-06-18 04:33] LABS: Total Protein 6.8 g/dL (5.7-8.2)
[2024-06-18 04:50] LABS: Band Neutrophils % (manual) 3; Lymphocytes % (manual) 2 (10.0-50.0); Monocytes % (manual) 1 (0-12); Platelet Estimate Adequate
[2024-06-18 07:44] LABS: Base Excess -0.2 mmol/L (-2.0-3.0)
--- NOTE | 2024-06-18 11:17 | DVHPN2 ---
Progress Note - Dictate Date Seen: Jun 18, 2024 Medical Necessity Reason Pt with a Central, PICC or Fol: Yes The following are medically ne: Eagle Catheter Reason for eagle catheter: Strict I&O Subjective Ms. Dawkins is a 63 years old female with a history of chronic kidney failure on hemodialysis, recent spine fracture, she came to the [facility] on 06/10/2024 with a chief company of back pain. I have seen and examined the patient, I have discussed with her nurse and other medical staff, the patient remained intubated, sedated, but is respond to light painful stimuli (more interactive to her surroundings) Her people are a elbow, the right side is slightly smaller, but without associated abnormal vascular dilatation or skin secretion She has been off sedation since 12:00 p.m. on 06/17/2024 Blood culture, 06/11/2024: Urinalysis, 06/11/2024: Negative Plasma alcohol, 06/10/2024: <3 ABG, 06/08/2024: Respiratory alkalosis WBC/HB/PLT/MCV, 06/11/2024: 1.7/10.5/114/89.3, 06/15/2024: 2.2/9.7/124/87.7, 06/16/2024: 0.5/10.3/136/86.5, 06/17/2024: 7.2/9.9/152/87.3 Na, 06/10/2024: 136, 06/12/2024: 133, 06/14/2024: 125, 06/15/24: 130 BUN/CR, 05/2624: 47/7.51, 06/15/2024: 31/5.74 HGB A1c, 06/11/2024: 4.3 Liver function tests, 06/10/2024: Unremarkable TG/HDL/LDL/HDL, 06/11/2024: 63/106/47/40 Echocardiogram, 06/11/2024: LVEF is normal 50-55% Rv function normal Moderate pericardial effusion with no evidence of tamponade Large left pleural effusion Chest x-ray, 06/11/2024: Lines and tubes in satisfactory position. No significant interval change Chest x-ray, 06/15/2024: 1. Mild diffuse increased prominence of the pulmonary vasculature. 2. Lines and tubes unchanged CT head, 06/10/2024: Subacute stroke involving the left frontal lobe white matter which also may involve the left temporal lobe as well can not rule out acute features CT head, neck, 06/10/2024: No significant vascular stenosis involving the head / neck. Moderate occlusion of the bilateral V4 segments vertebral arteries due to calcified and noncalcified plaques CT T-spine, 06/10/2024: No evidence of fracture in the thoracic spine CT lumbar spine, 06/10/2024: No acute fracture. Grade 1 anterolisthesis at L4-L5 with bilateral pars defects. Moderate to severe endplate degenerative changes at L4-L5, T12-L1, and L5-S1. There is severe spinal canal narrowing at L4-L5. Partially visualized moderate bilateral pleural effusions. Mild diffuse anasarca MRI head, 06/12/2024: 1. There is no acute intracranial process. 2. Chronic infarct in the superolateral left frontal lobe. (I saw another possible chronic stroke: Images 16) vital signs Vital Sign Date Time Temp Pulse Resp B/P (MAP) Pulse Ox O2 Delivery O2 Flow Rate FiO2 06/18/24 10:20 103 21 189/79 (115) 96 30 06/18/24 04:01 98.0 98.0 06/17/24 20:00 Mechanical Ventilator+ 06/17/24 18:30 2.0 Total Intake and Output 06/17/24 06/17/24 06/18/24 15:00 23:00 07:00 Intake Total 135.0 ml 340 ml 260 ml Output Total 10 ml Balance 135.0 ml 340 ml 250 ml medications Current Medications Medications Dose Ordered Sig/Eric Route Start Time Stop Time Status Last Admin Dose Admin Ondansetron HCl 4 mg Q4HP PRN IV 06/11/24 02:00 Nitroglycerin 0.4 mg Q5MINP PRN SL 06/11/24 02:00 Morphine Sulfate 2 mg Q30M PRN IV 06/11/24 02:00 Aspirin 81 mg DAILY PO 06/11/24 10:00 06/18/24 10:17 81 MG Atorvastatin Calcium 40 mg HS PO 06/11/24 22:00 06/17/24 21:45 40 MG Albuterol 2.5 mg Q4HPRN PRN NEB 06/11/24 02:00 06/15/24 02:08 2.5 MG Ipratropium [place] 0.5 mg Q4HPRN PRN NEB 06/11/24 02:00 06/17/24 18:35 0.5 MG Midazolam HCl 50 ml @ 1 mls/hr Q24H IV 06/11/24 02:15 06/16/24 05:17 1 MLS/HR Fentanyl Citrate 250 ml @ 2.5 mls/hr Q24H IV 06/11/24 02:15 06/17/24 05:58 10 MLS/HR Labetalol HCl 10 mg Q2HPRN PRN IV 06/11/24 04:30 06/16/24 01:21 10 MG Nicardipine HCl 250 ml @ 50 mls/hr Q5H IV 06/11/24 04:45 06/18/24 10:03 50 MLS/HR Heparin Sodium (Porcine) 5,000 units Q12HR SC 06/11/24 10:00 06/18/24 10:16 5,000 UNITS Pantoprazole Sodium 40 mg DAILY IV 06/11/24 10:00 06/18/24 10:17 40 MG Dextrose 50 ml UD PRN IV 06/11/24 07:15 06/12/24 14:52 50 ML Ceftriaxone Sodium 50 ml @ 100 mls/hr DAILY@09 IV 06/13/24 09:00 06/18/24 09:04 100 MLS/HR Acetaminophen 650 mg Q6HP PRN GT 06/11/24 23:45 06/12/24 02:48 650 MG Nicardipine HCl 250 ml @ 50 mls/hr Q5H IV 06/13/24 14:45 UNV Methylprednisolone Sodium Succinate 40 mg Q8HR IV 06/15/24 14:00 06/18/24 05:52 40 MG Enteral Nutritional Formula 1,000 ml 25ML/HR GT 06/15/24 13:30 06/15/24 21:22 1,000 ML Diagnostic Test (Pha) 1 strip Q6HR 06/16/24 18:00 06/18/24 05:52 1 STRIP Hydralazine HCl 10 mg Q6HPRN PRN IV 06/17/24 00:00 06/18/24 09:04 10 MG objective The patient is well-nourished and well-developed with no distress. The patient is intubated MENTAL STATUS: Subjective CRANIAL NERVES: Pupils are equal, round and reactive, left-sided slightly bigger. There are corneal reflexes and doll's eyes phenomenon. No signs of facial weakness. There are very weak gagging or coughing reflexes SENSATION: Slightly responses to strong pain stimuli. MOTOR: Normal tone in the upper and lower extremity. Normal muscle bulk. No fasciculations. No spontaneous movement. REFLEXES: Deep tendon reflexes are symmetrical. No pathological reflexes. CEREBELLAR/COORDINATION: Deferred GAIT/STATION: deferred. laboratory and microbiology Laboratory Tests 06/18/24 03:14 Test 06/18/24 03:14 Range/Units Serum Glucose 201 H 74-106 mg/dL Problem List 2 chronic strokes in the left hemisphere per MRI and CT scan, asymptomatic Acute low back pain to rule out diskitis Acute respiratory failure Pancytopenia, better Hyponatremia Hypokalemia Chronic kidney failure Anisocoria noticed on 06/18/2024, uncertain clinical significance Assessment/Plan Monitoring Supportive treatment ICU care Blood culture Follow-up labs Stabilize vitals/pressor drip Respiratory support/vent management IV antibiotics Aspirin 81 mg daily Lipitor 40 mg daily DVT prophylaxis GI prophylaxis Consult hematology Infectious disease on case Cardiology on case Pulmonary on case Nephrology on case More recommendation per clinical course This medical document was created using an electronic medical record system with Donde dictation system. Although this document has been carefully reviewed, there may still be some phonetic and typographical errors. These areas are purely typographical due to imperfections of the software programs, and do not reflect any compromise in the patient's medical care Prognosis poor Dietary Evaluation Review Comments: 1) If patient remains NPO > 7 days, consider EN/TPN to meet at least 75% estimated needs 2) If GI route is preferred, consider Nepro @ 25 mL/hr goal rate as tolerated. EN regimen will provide 1080 kcals, 49g Pro, and 447 mL free H2O per 24 hrs. EN regimen will meet ~90% estimated daily energy needs and ~47% estimated daily protein needs 3) Initiate Nephro-Susan @ 1 tb qd 4) Advance to [facility] standard diet when medically feasible, pending [employer] approval 5) Follow-up with nephrology, cardiology, and pulmonology 6) Continue to monitor I&O, labs, and skin integrity Expected Outcomes/Goals: 1) patient to receive nutrition support within 7 days of NPO status 2) labs to improve 3) wound to improve 4) patient to be extubated and diet to advance 5) f/u in 2-3 days Plan discussed with: Other Critical Care Time(min): 35 FORD ORTA MD Jun 18, 2024 11:17
[2024-06-18] MEDS: DEXMEDETOMIDINE HCL IN D5W 100 ML IV SCH (12:00)
--- NOTE | 2024-06-18 12:10 | DVHPN2 ---
Progress Note Date Seen: Jun 18, 2024 Resident Creating Document: JEROME WHITESIDE RESIDENT Medical Necessity Reason Pt with a Central, PICC or Fol: Yes The following are medically ne: Eagle Catheter Reason for eagle catheter: Strict I&O Subjective Review of Systems Patient is intubated on ventilator. Neutropenia Resolved. Off Sedation Objective vital signs Vital Sign Date Time Temp Pulse Resp B/P (MAP) Pulse Ox O2 Delivery O2 Flow Rate FiO2 06/18/24 11:51 93 21 141/56 (84) 97 30 06/18/24 08:01 98.0 98.0 06/18/24 08:00 Mechanical Ventilator+ 06/17/24 18:30 2.0 Total Intake and Output 06/17/24 06/17/24 06/18/24 15:00 23:00 07:00 Intake Total 135.0 ml 340 ml 260 ml Output Total 10 ml Balance 135.0 ml 340 ml 250 ml medications Current Medications Medications Dose Ordered Sig/Eric Route Start Time Stop Time Status Last Admin Dose Admin Ondansetron HCl 4 mg Q4HP PRN IV 06/11/24 02:00 Nitroglycerin 0.4 mg Q5MINP PRN SL 06/11/24 02:00 Morphine Sulfate 2 mg Q30M PRN IV 06/11/24 02:00 Aspirin 81 mg DAILY PO 06/11/24 10:00 06/18/24 10:17 81 MG Atorvastatin Calcium 40 mg HS PO 06/11/24 22:00 06/17/24 21:45 40 MG Albuterol 2.5 mg Q4HPRN PRN NEB 06/11/24 02:00 06/15/24 02:08 2.5 MG Ipratropium [place] 0.5 mg Q4HPRN PRN NEB 06/11/24 02:00 06/17/24 18:35 0.5 MG Midazolam HCl 50 ml @ 1 mls/hr Q24H IV 06/11/24 02:15 06/16/24 05:17 1 MLS/HR Fentanyl Citrate 250 ml @ 2.5 mls/hr Q24H IV 06/11/24 02:15 06/17/24 05:58 10 MLS/HR Labetalol HCl 10 mg Q2HPRN PRN IV 06/11/24 04:30 06/16/24 01:21 10 MG Nicardipine HCl 250 ml @ 50 mls/hr Q5H IV 06/11/24 04:45 06/18/24 10:03 50 MLS/HR Heparin Sodium (Porcine) 5,000 units Q12HR SC 06/11/24 10:00 06/18/24 10:16 5,000 UNITS Pantoprazole Sodium 40 mg DAILY IV 06/11/24 10:00 06/18/24 10:17 40 MG Dextrose 50 ml UD PRN IV 06/11/24 07:15 06/12/24 14:52 50 ML Ceftriaxone Sodium 50 ml @ 100 mls/hr DAILY@09 IV 06/13/24 09:00 06/18/24 09:04 100 MLS/HR Acetaminophen 650 mg Q6HP PRN GT 06/11/24 23:45 06/12/24 02:48 650 MG Nicardipine HCl 250 ml @ 50 mls/hr Q5H IV 06/13/24 14:45 UNV Enteral Nutritional Formula 1,000 ml 25ML/HR GT 06/15/24 13:30 06/15/24 21:22 1,000 ML Diagnostic Test (Pha) 1 strip Q6HR 06/16/24 18:00 06/18/24 05:52 1 STRIP Hydralazine HCl 10 mg Q6HPRN PRN IV 06/17/24 00:00 06/18/24 09:04 10 MG Nicardipine HCl 50 mg/Sodium Chloride 250 ml @ 25 mls/hr Q10H IV 06/18/24 12:00 UNV Examination Gen: On mechanical ventilation Lungs Diminished air entry at bases CV: RR, no pericardial rub Abdomen: soft, mildly distended, low BS Trace edema of legs laboratory and microbiology Laboratory Tests 06/18/24 03:14 Test 06/18/24 03:14 Range/Units Serum Glucose 201 H 74-106 mg/dL Microbiology Date/Time Source Procedure Growth Status 06/13/24 08:45 Nose MRSA Screen - Final Complete 06/11/24 23:55 Blood Blood Culture - Final NO GROWTH AFTER 5 DAYS OF INCUBATION. Complete Problem List/Assessment/Plan Problem List/Assessment/Plan Acute hypoxic respiratory failure Altered mental status Acute CVA Acute encephalopathy ESRD on hemodialysis Vent support Titrate FIO2 to keep O2 saturation above 90%. Daily ABG and CXR while intubated Sedate for ventilator synchrony Sedation holiday daily check for cuff leak If patient follows commands, proceed to weaning trial Pressure support 08/23. extubate when ready Pressors as necessary for hemodynamic support Titrate to keep mean arterial pressure greater than 65 mmHg. HD per Nephrology Monitor renal function Monitor electrolytes. Supplement as necessary. Monitor ins and outs. Maintain euvolemia. nutrition/glycemic control Case Discussed with Dr. Mckeon. Plan discussed with: Other (RN) Dietary Evaluation Review Comments: 1) If patient remains NPO > 7 days, consider EN/TPN to meet at least 75% estimated needs 2) If GI route is preferred, consider Nepro @ 25 mL/hr goal rate as tolerated. EN regimen will provide 1080 kcals, 49g Pro, and 447 mL free H2O per 24 hrs. EN regimen will meet ~90% estimated daily energy needs and ~47% estimated daily protein needs 3) Initiate Nephro-Susan @ 1 tb qd 4) Advance to 60g CCHO renal standard diet when medically feasible, pending [employer] approval 5) Follow-up with nephrology, cardiology, and pulmonology 6) Continue to monitor I&O, labs, and skin integrity Expected Outcomes/Goals: 1) patient to receive nutrition support within 7 days of NPO status 2) labs to improve 3) wound to improve 4) patient to be extubated and diet to advance 5) f/u in 2-3 days Date of Service: Jun 18, 2024 Billing Provider: MECHE MCKEON MD Common Visit Codes: NOT BILLABLE JEROME WHITESIDE RESIDENT Jun 18, 2024 12:10 MECHE MCKEON MD June 21, 2024 11:20
[2024-06-18] MEDS: niCARdipine 50 MG in SODIUM CHL 0.9% 230 ML IV SCH (13:41)
--- NOTE | 2024-06-18 14:19 | DVHPN2 ---
Progress Note - Dictate Date Seen: Jun 18, 2024 Medical Necessity Reason Pt with a Central, PICC or Fol: Yes The following are medically ne: Eagle Catheter Reason for eagle catheter: Strict I&O Subjective Patient is intubated and sedated on ventilator. wbc went up vital signs Vital Sign Date Time Temp Pulse Resp B/P (MAP) Pulse Ox O2 Delivery O2 Flow Rate FiO2 06/18/24 11:51 93 21 141/56 (84) 97 30 06/18/24 08:01 98.0 98.0 06/18/24 08:00 Mechanical Ventilator+ 06/17/24 18:30 2.0 Total Intake and Output 06/17/24 06/17/24 06/18/24 15:00 23:00 07:00 Intake Total 135.0 ml 340 ml 260 ml Output Total 10 ml Balance 135.0 ml 340 ml 250 ml medications Current Medications Medications Dose Ordered Sig/Eric Route Start Time Stop Time Status Last Admin Dose Admin Ondansetron HCl 4 mg Q4HP PRN IV 06/11/24 02:00 Nitroglycerin 0.4 mg Q5MINP PRN SL 06/11/24 02:00 Morphine Sulfate 2 mg Q30M PRN IV 06/11/24 02:00 Aspirin 81 mg DAILY PO 06/11/24 10:00 06/18/24 10:17 81 MG Atorvastatin Calcium 40 mg HS PO 06/11/24 22:00 06/17/24 21:45 40 MG Albuterol 2.5 mg Q4HPRN PRN NEB 06/11/24 02:00 06/15/24 02:08 2.5 MG Ipratropium [place] 0.5 mg Q4HPRN PRN NEB 06/11/24 02:00 06/17/24 18:35 0.5 MG Midazolam HCl 50 ml @ 1 mls/hr Q24H IV 06/11/24 02:15 06/16/24 05:17 1 MLS/HR Fentanyl Citrate 250 ml @ 2.5 mls/hr Q24H IV 06/11/24 02:15 06/17/24 05:58 10 MLS/HR Labetalol HCl 10 mg Q2HPRN PRN IV 06/11/24 04:30 06/16/24 01:21 10 MG Heparin Sodium (Porcine) 5,000 units Q12HR SC 06/11/24 10:00 06/18/24 10:16 5,000 UNITS Pantoprazole Sodium 40 mg DAILY IV 06/11/24 10:00 06/18/24 10:17 40 MG Dextrose 50 ml UD PRN IV 06/11/24 07:15 06/12/24 14:52 50 ML Ceftriaxone Sodium 50 ml @ 100 mls/hr DAILY@09 IV 06/13/24 09:00 06/18/24 09:04 100 MLS/HR Acetaminophen 650 mg Q6HP PRN GT 06/11/24 23:45 06/12/24 02:48 650 MG Nicardipine HCl 250 ml @ 50 mls/hr Q5H IV 06/13/24 14:45 UNV Enteral Nutritional Formula 1,000 ml 25ML/HR GT 06/15/24 13:30 06/15/24 21:22 1,000 ML Diagnostic Test (Pha) 1 strip Q6HR 06/16/24 18:00 06/18/24 05:52 1 STRIP Hydralazine HCl 10 mg Q6HPRN PRN IV 06/17/24 00:00 06/18/24 09:04 10 MG Nicardipine HCl 50 mg/Sodium Chloride 250 ml @ 25 mls/hr Q10H IV 06/18/24 12:00 objective General Appearance: intubated and sedated HEENT: ET tube Respiratory: Other (Intubated on mechanical ventilator) Cardiovascular: Regular rate, Normal S1, Normal S2 Abdominal: Normal bowel sounds, Soft, No tenderness Extremities: Other (BLE pitting edema 2+) Skin: No rashes Neuro: Other (Altered non arousable) Psych/Mental Status: Other (Unable to assess) laboratory and microbiology Laboratory Tests 06/18/24 03:14 Test 06/18/24 03:14 Range/Units Serum Glucose 201 H 74-106 mg/dL Assessment/Plan Patient is a 63-year-old female presents to the hospital with: Severe agranulocytosis Vertebral Discitis subacute CVA Acute encephalopathy Acute hypoxic respiratory S/P intubation on mechanical ventilator Leucopenia ESRD on HD Fluid overload Hypertensive emergency Hx T12 compression fracture Recommendations: reviewed [facility] records in detail: She had low wbc from 03/23/2024 with 3.4 with intermittent 1.8 and she has been admitted 2-3 times and wbc is in same range. no work up done She had mri spine with on 05/22 shows hypointense T1 and hyperintense T2 at L3-L4 concerning for discitis osteomyelitis. Hyperintense T2 signal along epidural space L3-L4 for 5mm AP diameter concerning for Phlegmon. ID Dr Carlisle saw the patient and recommended IV Vancomycin for 6 weeks. There is no positive blood cultures or biopsy done. His notes on 05/23 recommended 6 weeks of IV vancomycin ( switched from ceftriaxone for low wbc). since leucopenia was present in prior admissions too, its unlikely due to vancomycin discussed with nephrology, reviewed old labs, back in 2022 also her wbc was in 3k. unsure if she had work up done platelets were in 200 in 2023 but later its been low too recommend repeat MRI lumbar spine to evaluate epidural phlegmon peripheral smear manual ordered Hematology consult but unavailable monitor cbc Continue IV Ceftriaxone for now; vancomycin on hold Monitor Vancomycin Trough, on HD 06/14, Vancomycin Random is 33.2 on MV Antibiotic status: Ceftriaxone IV [Started on 06/11 - Ongoing] Vancomycin IV [Started on 06/11 - 06/16] 06/11, Respiratory culture preliminary showed Normal Oropharyngeal Trish 06/11, Blood culture showed no growth 06/13, MRSA screening came back negative Review of Imagin/24, Chest x-ray showed Cardiomegaly with mild congestion. 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 Dietary Evaluation Review Comments: 1) If patient remains NPO > 7 days, consider EN/TPN to meet at least 75% estimated needs 2) If GI route is preferred, consider Nepro @ 25 mL/hr goal rate as tolerated. EN regimen will provide 1080 kcals, 49g Pro, and 447 mL free H2O per 24 hrs. EN regimen will meet ~90% estimated daily energy needs and ~47% estimated daily protein needs 3) Initiate Nephro-Susan @ 1 tb qd 4) Advance to 60g CCHO renal standard diet when medically feasible, pending [facility] approval 5) Follow-up with nephrology, cardiology, and pulmonology 6) Continue to monitor I&O, labs, and skin integrity Expected Outcomes/Goals: 1) patient to receive nutrition support within 7 days of NPO status 2) labs to improve 3) wound to improve 4) patient to be extubated and diet to advance 5) f/u in 2-3 days Plan discussed with: GONZÁLEZ Vidal MD Jun 18, 2024 14:19
--- NOTE | 2024-06-18 14:29 | DVHPN2 ---
Subjective Patient remains intubated , currently off of sedation. Reviewed: Care Plan Changes from previous H/P or p: No Changes Objective Vitals Vital Signs Date Time Temp Pulse Resp B/P (MAP) Pulse Ox O2 Delivery O2 Flow Rate FiO2 06/18/24 14:07 93 19 156/67 (96) 97 30 06/18/24 08:01 98.0 98.0 06/18/24 08:00 Mechanical Ventilator+ 06/17/24 18:30 2.0 Intake/Output Intake and Output 06/18/24 07:00 Intake Total 735.0 ml Output Total 10 ml Balance 725.0 ml Intake Oral 120 ml IV Total 135.0 ml Tube Feeding 480 ml Output Urine Total 10 ml Exam HEENT pupils are reactive , positive scleral edema, positive tongue swelling 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 no edema 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 Medications Current Medications Medications Dose Ordered Sig/Eric Route Start Time Stop Time Status Last Admin Dose Admin Ondansetron HCl 4 mg Q4HP PRN IV 06/11/24 02:00 Nitroglycerin 0.4 mg Q5MINP PRN SL 06/11/24 02:00 Morphine Sulfate 2 mg Q30M PRN IV 06/11/24 02:00 Aspirin 81 mg DAILY PO 06/11/24 10:00 06/18/24 10:17 81 MG Atorvastatin Calcium 40 mg HS PO 06/11/24 22:00 06/17/24 21:45 40 MG Albuterol 2.5 mg Q4HPRN PRN NEB 06/11/24 02:00 06/15/24 02:08 2.5 MG Ipratropium [place] 0.5 mg Q4HPRN PRN NEB 06/11/24 02:00 06/17/24 18:35 0.5 MG Midazolam HCl 50 ml @ 1 mls/hr Q24H IV 06/11/24 02:15 06/16/24 05:17 1 MLS/HR Fentanyl Citrate 250 ml @ 2.5 mls/hr Q24H IV 06/11/24 02:15 06/17/24 05:58 10 MLS/HR Labetalol HCl 10 mg Q2HPRN PRN IV 06/11/24 04:30 06/16/24 01:21 10 MG Heparin Sodium (Porcine) 5,000 units Q12HR SC 06/11/24 10:00 06/18/24 10:16 5,000 UNITS Pantoprazole Sodium 40 mg DAILY IV 06/11/24 10:00 06/18/24 10:17 40 MG Dextrose 50 ml UD PRN IV 06/11/24 07:15 06/12/24 14:52 50 ML Ceftriaxone Sodium 50 ml @ 100 mls/hr DAILY@09 IV 06/13/24 09:00 06/18/24 09:04 100 MLS/HR Acetaminophen 650 mg Q6HP PRN GT 06/11/24 23:45 06/12/24 02:48 650 MG Nicardipine HCl 250 ml @ 50 mls/hr Q5H IV 06/13/24 14:45 UNV Enteral Nutritional Formula 1,000 ml 25ML/HR GT 06/15/24 13:30 06/15/24 21:22 1,000 ML Diagnostic Test (Pha) 1 strip Q6HR 06/16/24 18:00 06/18/24 13:45 1 STRIP Hydralazine HCl 10 mg Q6HPRN PRN IV 06/17/24 00:00 06/18/24 09:04 10 MG Nicardipine HCl 50 mg/Sodium Chloride 250 ml @ 25 mls/hr Q10H IV 06/18/24 12:00 06/18/24 13:41 37.5 MLS/HR Laboratory Results Laboratory Tests 06/18/24 03:14 Chemistry Test 06/18/24 03:14 Albumin 3.8 g/dL (3.2-4.8) Calcium Level 10.1 mg/dL (8.7-10.4) Total Protein 6.8 g/dL (5.7-8.2) LFT Test 06/18/24 03:14 Alanine Aminotransferase (ALT) 11 U/L (7-40) Alkaline Phosphatase 147 U/L (46-116) H Aspartate Amino Transferase (AST) 20 U/L (13-40) Total Bilirubin 0.3 mg/dL (0.2-1.0) Urinalysis Test 06/11/24 03:00 Urine Color Light-yellow (Yellow) Urine Clarity Turbid (Clear) H Urine pH 8.0 (5.0-9.0) Urine Specific [place] 1.008 (1.001-1.035) Urine Protein 3+ (Negative) H Urine Ketones Negative (Negative) Urine Blood Negative /uL (Negative) Urine Nitrite Negative (Negative) Urine Bilirubin Negative (Negative) Urine Urobilinogen Normal mg/dL (Negative) Urine Leukocyte Esterase 1+ /uL (Negative) Urine RBC 10 /hpf (0 - 4) Urine Microscopic WBC 41 /HPF (0-5) H Urine Squamous Epithelial Cells Mod /hpf (<5) Urine Bacteria None seen /hpf (None Seen) Urine Glucose 2+ mg/dL (Normal) H Blood Gas Results Test 06/18/24 07:36 Arterial Blood pH 7.485 (7.350-7.450) FiO2 % 30.0 Microbiology Microbiology Date/Time Source Procedure Growth Status 06/13/24 08:45 Nose MRSA Screen - Final Complete 06/11/24 23:55 Blood Blood Culture - Final NO GROWTH AFTER 5 DAYS OF INCUBATION. Complete Assessment/Plan Assessment/Plan 63-year-old female with a known history of hypertension, dyslipidemia, coronary artery disease, anxiety disorder, recent mechanical fall found to have acute small T12 compression fracture, L3-4 lumbar diskitis presented to the hospital with right-sided weakness altered mental status eventually intubated in the ER for airway protection. Patient was found to have acute/subacute left frontal and temporal infarct currently MRI brain is pending. 1. Acute hypoxic respiratory failure requiring intubation with mechanical ventilation secondary to metabolic encephalopathy 2. 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 Hypertensive emergency with the end-organ involvement , off the nicardipine drip 5. End-stage renal disease on hemodialysis received hemodialysis on06/14 6. Coronary artery disease 7. L3-4 lumbar diskitis/osteomyelitis, resume IV vancomycin and consult infectious disease specialist 8. Hyponatremia, continue IV fluids D5 NS 8. Neutropenia, status post Neupogen one dose resolved - -discontinue IV vancomycin as per Infectious Disease. -continue ceftriaxone patient was remains critical prognosis-remained guarded -plan of care discussed with the bedside RN . -hemodialysis per Nephrology Plan discussed with: Other My Orders Orders - BENJA ROBBINS MD Procedure Category Date Status Time Chest Portable XY 06/18/24 Resulted 04:00 Sodium Chl 0.9% PHA 4/30/25 In Process (Ns... W/Nicardipine 12:00 Date of Service: Jun 18, 2024 Billing Provider: BENJA ROBBINS MD Common Visit Codes: NOT BILLABLE BENJA ROBBINS MD Jun 18, 2024 14:29
--- NOTE | 2024-06-18 16:25 | DVHPN2 ---
Progress Note - Dictate Date Seen: Jun 18, 2024 Medical Necessity Reason Pt with a Central, PICC or Fol: Yes The following are medically ne: Eagle Catheter Reason for eagle catheter: Strict I&O Subjective remains intubated vital signs Vital Sign Date Time Temp Pulse Resp B/P (MAP) Pulse Ox O2 Delivery O2 Flow Rate FiO2 06/18/24 16:00 30 06/18/24 16:00 87 06/18/24 14:07 19 156/67 (96) 97 06/18/24 08:01 98.0 98.0 06/18/24 08:00 Mechanical Ventilator+ 06/17/24 18:30 2.0 Total Intake and Output 06/17/24 06/17/24 06/18/24 15:00 23:00 07:00 Intake Total 135.0 ml 340 ml 260 ml Output Total 10 ml Balance 135.0 ml 340 ml 250 ml medications Current Medications Medications Dose Ordered Sig/Eric Route Start Time Stop Time Status Last Admin Dose Admin Ondansetron HCl 4 mg Q4HP PRN IV 06/11/24 02:00 Nitroglycerin 0.4 mg Q5MINP PRN SL 06/11/24 02:00 Morphine Sulfate 2 mg Q30M PRN IV 06/11/24 02:00 Aspirin 81 mg DAILY PO 06/11/24 10:00 06/18/24 10:17 81 MG Atorvastatin Calcium 40 mg HS PO 06/11/24 22:00 06/17/24 21:45 40 MG Albuterol 2.5 mg Q4HPRN PRN NEB 06/11/24 02:00 06/15/24 02:08 2.5 MG Ipratropium [place] 0.5 mg Q4HPRN PRN NEB 06/11/24 02:00 06/17/24 18:35 0.5 MG Midazolam HCl 50 ml @ 1 mls/hr Q24H IV 06/11/24 02:15 06/16/24 05:17 1 MLS/HR Fentanyl Citrate 250 ml @ 2.5 mls/hr Q24H IV 06/11/24 02:15 06/17/24 05:58 10 MLS/HR Labetalol HCl 10 mg Q2HPRN PRN IV 06/11/24 04:30 06/16/24 01:21 10 MG Heparin Sodium (Porcine) 5,000 units Q12HR SC 06/11/24 10:00 06/18/24 10:16 5,000 UNITS Pantoprazole Sodium 40 mg DAILY IV 06/11/24 10:00 06/18/24 10:17 40 MG Dextrose 50 ml UD PRN IV 06/11/24 07:15 06/12/24 14:52 50 ML Ceftriaxone Sodium 50 ml @ 100 mls/hr DAILY@09 IV 06/13/24 09:00 06/18/24 09:04 100 MLS/HR Acetaminophen 650 mg Q6HP PRN GT 06/11/24 23:45 06/12/24 02:48 650 MG Nicardipine HCl 250 ml @ 50 mls/hr Q5H IV 06/13/24 14:45 UNV Enteral Nutritional Formula 1,000 ml 25ML/HR GT 06/15/24 13:30 06/15/24 21:22 1,000 ML Diagnostic Test (Pha) 1 strip Q6HR 06/16/24 18:00 06/18/24 13:45 1 STRIP Hydralazine HCl 10 mg Q6HPRN PRN IV 06/17/24 00:00 06/18/24 09:04 10 MG Nicardipine HCl 50 mg/Sodium Chloride 250 ml @ 25 mls/hr Q10H IV 06/18/24 12:00 06/18/24 13:41 37.5 MLS/HR objective Gen: On mechanical ventilation Lungs Diminished air entry at bases CV: RR, no pericardial rub Abdomen: soft, mildly distended, low BS Trace edema of legs laboratory and microbiology Laboratory Tests 06/18/24 03:14 Test 06/18/24 03:14 Range/Units Serum Glucose 201 H 74-106 mg/dL Assessment/Plan End-stage renal disease on HD Hyponatremia Anemia of renal disease. Respiratory failure, on mechanical ventilation for airway protection. Subacute stroke. T-spine fracture. Leukopenia Plan: s/p HD Sunday Next HD on HD to continue on TTS schedule MRI lumbar spine for evaluation of lumbar phlegmon per ID on tube feeding Daily BMP ANANTH post HD as needed, goal Hb: 10-11 g/dl Dietary Evaluation Review Comments: 1) If patient remains NPO > 7 days, consider EN/TPN to meet at least 75% estimated needs 2) If GI route is preferred, consider Nepro @ 25 mL/hr goal rate as tolerated. EN regimen will provide 1080 kcals, 49g Pro, and 447 mL free H2O per 24 hrs. EN regimen will meet ~90% estimated daily energy needs and ~47% estimated daily protein needs 3) Initiate Nephro-Susan @ 1 tb qd 4) Advance to 60g CCHO renal standard diet when medically feasible, pending [facility] approval 5) Follow-up with nephrology, cardiology, and pulmonology 6) Continue to monitor I&O, labs, and skin integrity Expected Outcomes/Goals: 1) patient to receive nutrition support within 7 days of NPO status 2) labs to improve 3) wound to improve 4) patient to be extubated and diet to advance 5) f/u in 2-3 days Plan discussed with: ILANA Andersen MD Jun 18, 2024 16:25
--- NOTE | 2024-06-18 22:43 | DVHPN2 ---
Progress Note - Dictate Date Seen: Jun 18, 2024 Medical Necessity Reason Pt with a Central, PICC or Fol: Yes The following are medically ne: Eagle Catheter Reason for eagle catheter: Strict I&O Subjective Patient was seen and evaluated in follow up in the ICU. Patient is intubated and sedated on ventilator. 30% FiO2. Patient is responsive to light painful stimuli. BUN 39, [employer]MENT[employer] PROJECT COORDINATOR 5.26, GLUC 243. Chest x-ray showed mild pulmonary vascular congestion, obscuration of the left hemidiaphragm may relate to small effusion with atelectasis or consolidation. N vital signs Vital Sign Date Time Temp Pulse Resp B/P (MAP) Pulse Ox O2 Delivery O2 Flow Rate FiO2 06/18/24 11:51 93 21 141/56 (84) 97 30 06/18/24 08:01 98.0 98.0 06/18/24 08:00 Mechanical Ventilator+ 06/17/24 18:30 2.0 Total Intake and Output 06/17/24 06/17/24 06/18/24 15:00 23:00 07:00 Intake Total 135.0 ml 340 ml 260 ml Output Total 10 ml Balance 135.0 ml 340 ml 250 ml medications Current Medications Medications Dose Ordered Sig/Eric Route Start Time Stop Time Status Last Admin Dose Admin Ondansetron HCl 4 mg Q4HP PRN IV 06/11/24 02:00 Nitroglycerin 0.4 mg Q5MINP PRN SL 06/11/24 02:00 Morphine Sulfate 2 mg Q30M PRN IV 06/11/24 02:00 Aspirin 81 mg DAILY PO 06/11/24 10:00 06/18/24 10:17 81 MG Atorvastatin Calcium 40 mg HS PO 06/11/24 22:00 06/17/24 21:45 40 MG Albuterol 2.5 mg Q4HPRN PRN NEB 06/11/24 02:00 06/15/24 02:08 2.5 MG Ipratropium [place] 0.5 mg Q4HPRN PRN NEB 06/11/24 02:00 06/17/24 18:35 0.5 MG Midazolam HCl 50 ml @ 1 mls/hr Q24H IV 06/11/24 02:15 06/16/24 05:17 1 MLS/HR Fentanyl Citrate 250 ml @ 2.5 mls/hr Q24H IV 06/11/24 02:15 06/17/24 05:58 10 MLS/HR Labetalol HCl 10 mg Q2HPRN PRN IV 06/11/24 04:30 06/16/24 01:21 10 MG Nicardipine HCl 250 ml @ 50 mls/hr Q5H IV 06/11/24 04:45 06/18/24 10:03 50 MLS/HR Heparin Sodium (Porcine) 5,000 units Q12HR SC 06/11/24 10:00 06/18/24 10:16 5,000 UNITS Pantoprazole Sodium 40 mg DAILY IV 06/11/24 10:00 06/18/24 10:17 40 MG Dextrose 50 ml UD PRN IV 06/11/24 07:15 06/12/24 14:52 50 ML Ceftriaxone Sodium 50 ml @ 100 mls/hr DAILY@09 IV 06/13/24 09:00 06/18/24 09:04 100 MLS/HR Acetaminophen 650 mg Q6HP PRN GT 06/11/24 23:45 06/12/24 02:48 650 MG Nicardipine HCl 250 ml @ 50 mls/hr Q5H IV 06/13/24 14:45 UNV Enteral Nutritional Formula 1,000 ml 25ML/HR GT 06/15/24 13:30 06/15/24 21:22 1,000 ML Diagnostic Test (Pha) 1 strip Q6HR 06/16/24 18:00 06/18/24 05:52 1 STRIP Hydralazine HCl 10 mg Q6HPRN PRN IV 06/17/24 00:00 06/18/24 09:04 10 MG Nicardipine HCl 50 mg/Sodium Chloride 250 ml @ 25 mls/hr Q10H IV 06/18/24 12:00 UNV objective GENERAL: Intubated on ventilator. EYES: PERRL, EOMI. Anicteric. HENT: Moist mucous membranes. LUNGS: Decreased breath sounds. CARDIOVASCULAR: Regular rate and rhythm. ABDOMEN: Soft, nontender and nondistended. EXTREMITIES: No edema. NEUROLOGIC: No focal neurological deficits. SKIN: Warm, dry. laboratory and microbiology Laboratory Tests 06/18/24 03:14 Test 06/18/24 03:14 Range/Units Serum Glucose 201 H 74-106 mg/dL Problem List Acute CVA. Hypertensive emergency. Questionable coronary artery disease. Moderate pericardial effusion. Acute hypoxic respiratory failure. End-stage renal disease on hemodialysis. History of T12 compression fracture. Assessment/Plan Continued all current supportive medical care. Aspirin, Lipitor. IV antibiotics as ordered. Vasopressors for hemodynamic support. Nitro SL. Morphine for pain management. Additional plan as per the hospital course. Critical care time of 45 minutes provided to include time spent evaluation of patient at bedside, when appropriate patient/family education for diagnosis, treatment plan, review of pertinent medical information and discussion of care with specialty providers and PCP. Mechanical ventilator parameters, treatment and adjustments have personally been reviewed by me and treatment plan by online merchant has also been reviewed. Dietary Evaluation Review Comments: 1) If patient remains NPO > 7 days, consider EN/TPN to meet at least 75% estimated needs 2) If GI route is preferred, consider Nepro @ 25 mL/hr goal rate as tolerated. EN regimen will provide 1080 kcals, 49g Pro, and 447 mL free H2O per 24 hrs. EN regimen will meet ~90% estimated daily energy needs and ~47% estimated daily protein needs 3) Initiate Nephro-Susan @ 1 tb qd 4) Advance to 60g [facility] renal standard diet when medically feasible, pending [facility] approval 5) Follow-up with nephrology, cardiology, and pulmonology 6) Continue to monitor I&O, labs, and skin integrity Expected Outcomes/Goals: 1) patient to receive nutrition support within 7 days of NPO status 2) labs to improve 3) wound to improve 4) patient to be extubated and diet to advance 5) f/u in 2-3 days Plan discussed with: SHAUN Pérez MD Jun 18, 2024 12:34
[2024-06-19] VITALS (106 sets, daily range): BP systolic 121–159; BP diastolic 47–69; PULSE 83–102; RESP 12–24; TEMP 97.9–98.7; O2SAT 96–100
[2024-06-19 04:13] LABS: Hematocrit 29.7 % (36.0-46.0); Hemoglobin 9.6 g/dL (12.2-16.2); Mean Corpuscular Hemoglobin 28.5 pg (28.0-32.0); Mean Corpuscular Hgb Conc. 32.4 g/dL (32.0-36.0); Mean Corpuscular Volume 87.9 fL (80.0-100.0); Platelet Count (auto) 180 10^3/uL (140-450); Red Blood Cells 3.37 10^6/uL (4.0-5.20); Red Cell Distribution Width 16.2 % (11.8-14.3)
[2024-06-19 04:36] LABS: Basophils % (manual) 0 (0.0-2.0); Blast Cells 0; Eosinophils % (manual) 0 (0-7); Metamyelocytes % 0; Myelocytes % 0; Promyelocytes % 0; Reactive Lymphocytes 0
[2024-06-19 04:42] LABS: Alanine Aminotransferase 12 U/L (7-40); Albumin 3.6 g/dL (3.2-4.8); Anion Gap 11 (5-15); Aspartate Aminotransferase 23 U/L (13-40); BUN/Creatinine Ratio 8.9 (10.0-20.0); Calcium 9.9 mg/dL (8.7-10.4); Carbon Dioxide 26 mmol/L (20-31); Chloride 100 mmol/L (98-107); Sodium 137 mmol/L (136-145); Total Protein 6.2 g/dL (5.7-8.2)
[2024-06-19 04:56] LABS: Alkaline Phosphatase 140 U/L (46-116); Bilirubin, Total 0.3 mg/dL (0.2-1.0); Blood Urea Nitrogen 55 mg/dL (9-23); Glucose 188 mg/dL (74-106); Potassium 3.2 mmol/L (3.5-5.1)
--- NOTE | 2024-06-19 05:52 | DVH ---
EXAM: XR Chest, 1 View CLINICAL INDICATION: VENTED TECHNIQUE: Frontal view of the chest. COMPARISON: XY CHEST PORTABLE on DOS: 06/18/24, XY CHEST PORTABLE on DOS: 06/17/24, XY CHEST PORTABLE on DOS: 06/16/24, XY CHEST PORTABLE on DOS: 06/15/24, XY CHEST XRAY 1 VIEW on DOS: 06/14/24 FINDINGS: LUNGS AND PLEURAL SPACES: Unremarkable. No consolidation. No pneumothorax. HEART: Unremarkable. No cardiomegaly. MEDIASTINUM: Unremarkable. Normal mediastinal contour. BONES/JOINTS: Unremarkable. No acute fracture. TUBES, LINES AND DEVICES: Right internal jugular central venous catheter tip in the superior vena c neeta. The endotracheal tube (ETT) is in satisfactory position. Left internal jugular central venous catheter tip in the superior vena cava. Enteric tube tip in the stomach. OTHER FINDINGS: . Mild CHF. IMPRESSION: No acute cardiopulmonary process.
[2024-06-19 06:11] LABS: Band Neutrophils % (manual) 1; Lymphocytes % (manual) 4 (10.0-50.0); Monocytes % (manual) 1 (0-12)
[2024-06-19 06:12] LABS: Platelet Estimate Adequate
[2024-06-19 08:29] LABS: Base Excess -1.4 mmol/L (-2.0-3.0)
[2024-06-19] MEDS: SODIUM CHL 0.9% 1000 ML BAG XX ONE (09:11)
--- NOTE | 2024-06-19 11:58 | DVHPN2 ---
Progress Note Date Seen: June 19, 2024 Resident Creating Document: JEROME WHITESIDE RESIDENT Medical Necessity Reason Pt with a Central, PICC or Fol: Yes The following are medically ne: Eagle Catheter Reason for eagle catheter: Strict I&O Subjective Review of Systems Patient is intubated on ventilator. Neutropenia Resolved. Off Sedation Objective vital signs Vital Sign Date Time Temp Pulse Resp B/P (MAP) Pulse Ox O2 Delivery O2 Flow Rate FiO2 06/19/24 10:10 95 21 129/49 (75) 97 30 06/19/24 04:00 97.9 97.9 06/18/24 20:00 Mechanical Ventilator+ 06/17/24 18:30 2.0 Total Intake and Output 06/18/24 06/18/24 06/19/24 14:59 22:59 06:59 Intake Total 282.5 ml 239.5 ml 422.5 ml Output Total 10 ml 10 ml Balance 282.5 ml 229.5 ml 412.5 ml medications Current Medications Medications Dose Ordered Sig/Eric Route Start Time Stop Time Status Last Admin Dose Admin Ondansetron HCl 4 mg Q4HP PRN IV 06/11/24 02:00 Nitroglycerin 0.4 mg Q5MINP PRN SL 06/11/24 02:00 Morphine Sulfate 2 mg Q30M PRN IV 06/11/24 02:00 Aspirin 81 mg DAILY PO 06/11/24 10:00 06/19/24 09:18 81 MG Atorvastatin Calcium 40 mg HS PO 06/11/24 22:00 06/18/24 21:32 40 MG Albuterol 2.5 mg Q4HPRN PRN NEB 06/11/24 02:00 06/15/24 02:08 2.5 MG Ipratropium [place] 0.5 mg Q4HPRN PRN NEB 06/11/24 02:00 06/17/24 18:35 0.5 MG Midazolam HCl 50 ml @ 1 mls/hr Q24H IV 06/11/24 02:15 06/16/24 05:17 1 MLS/HR Fentanyl Citrate 250 ml @ 2.5 mls/hr Q24H IV 06/11/24 02:15 06/17/24 05:58 10 MLS/HR Labetalol HCl 10 mg Q2HPRN PRN IV 06/11/24 04:30 06/16/24 01:21 10 MG Heparin Sodium (Porcine) 5,000 units Q12HR SC 06/11/24 10:00 06/19/24 09:17 5,000 UNITS Pantoprazole Sodium 40 mg DAILY IV 06/11/24 10:00 06/18/24 10:17 40 MG Dextrose 50 ml UD PRN IV 06/11/24 07:15 06/12/24 14:52 50 ML Ceftriaxone Sodium 50 ml @ 100 mls/hr DAILY@09 IV 06/13/24 09:00 06/18/24 09:04 100 MLS/HR Acetaminophen 650 mg Q6HP PRN GT 06/11/24 23:45 06/12/24 02:48 650 MG Nicardipine HCl 250 ml @ 50 mls/hr Q5H IV 06/13/24 14:45 UNV Enteral Nutritional Formula 1,000 ml 25ML/HR GT 06/15/24 13:30 06/15/24 21:22 1,000 ML Diagnostic Test (Pha) 1 strip Q6HR 06/16/24 18:00 06/19/24 05:54 1 STRIP Hydralazine HCl 10 mg Q6HPRN PRN IV 06/17/24 00:00 06/18/24 09:04 10 MG Nicardipine HCl 50 mg/Sodium Chloride 250 ml @ 25 mls/hr Q10H IV 06/18/24 12:00 06/19/24 09:07 25 MLS/HR Examination Gen: On mechanical ventilation Lungs Diminished air entry at bases CV: RR, no pericardial rub Abdomen: soft, mildly distended, low BS Trace edema of legs laboratory and microbiology Laboratory Tests 06/19/24 03:30 Test 06/19/24 03:30 Range/Units Serum Glucose 188 H 74-106 mg/dL Microbiology Date/Time Source Procedure Growth Status 06/13/24 08:45 Nose MRSA Screen - Final Complete 06/11/24 23:55 Blood Blood Culture - Final NO GROWTH AFTER 5 DAYS OF INCUBATION. Complete Problem List/Assessment/Plan Problem List/Assessment/Plan Acute hypoxic respiratory failure Altered mental status Acute CVA Acute encephalopathy ESRD on hemodialysis Vent support Titrate FIO2 to keep O2 saturation above 90%. Daily ABG and CXR while intubated Sedate for ventilator synchrony Sedation holiday daily check for cuff leak If patient follows commands, proceed to weaning trial Pressure support 08/23. extubate when ready Pressors as necessary for hemodynamic support Titrate to keep mean arterial pressure greater than 65 mmHg. HD per Nephrology Monitor renal function Monitor electrolytes. Supplement as necessary. Monitor ins and outs. Maintain euvolemia. Amyloid shows chronic frontal lobe infarct Discontinue steroid as neutropenia resolved Okay to proceed CPAP every day Extubate when patient is more awake nutrition/glycemic control Case Discussed with Dr. Mckeon. Plan discussed with: Other (RN) Dietary Evaluation Review Comments: 1) If patient remains NPO > 7 days, consider EN/TPN to meet at least 75% estimated needs 2) If GI route is preferred, consider Nepro @ 25 mL/hr goal rate as tolerated. EN regimen will provide 1080 kcals, 49g Pro, and 447 mL free H2O per 24 hrs. EN regimen will meet ~90% estimated daily energy needs and ~47% estimated daily protein needs 3) Initiate Nephro-Susan @ 1 tb qd 4) Advance to 60g CCHO renal standard diet when medically feasible, pending [facility] approval 5) Follow-up with nephrology, cardiology, and pulmonology 6) Continue to monitor I&O, labs, and skin integrity Expected Outcomes/Goals: 1) patient to receive nutrition support within 7 days of NPO status 2) labs to improve 3) wound to improve 4) patient to be extubated and diet to advance 5) f/u in 2-3 days Date of Service: June 19, 2024 Billing Provider: MECHE MCKEON MD Common Visit Codes: NOT BILLABLE JEROME WHITESIDE RESIDENT June 19, 2024 11:58 MECHE MCKEON MD June 21, 2024 11:19
--- NOTE | 2024-06-19 15:32 | DVHPN2 ---
Progress Note - Dictate Date Seen: June 19, 2024 Medical Necessity Reason Pt with a Central, PICC or Fol: Yes The following are medically ne: Eagle Catheter Reason for eagle catheter: Strict I&O Subjective Discussed with the nurse in the ICU. Apparently patient did not go for her MRI of the lumbar spine as ordered by Infectious Disease due to agitation. vital signs Vital Sign Date Time Temp Pulse Resp B/P (MAP) Pulse Ox O2 Delivery O2 Flow Rate FiO2 06/19/24 14:24 102 22 139/60 (86) 97 30 06/19/24 12:15 98.3 98.3 06/19/24 12:00 Mechanical Ventilator+ 06/17/24 18:30 2.0 Total Intake and Output 06/18/24 06/18/24 06/19/24 15:00 23:00 07:00 Intake Total 290.0 ml 269.5 ml 385.0 ml Output Total 10 ml 10 ml Balance 290.0 ml 259.5 ml 375.0 ml medications Current Medications Medications Dose Ordered Sig/Eric Route Start Time Stop Time Status Last Admin Dose Admin Ondansetron HCl 4 mg Q4HP PRN IV 06/11/24 02:00 Nitroglycerin 0.4 mg Q5MINP PRN SL 06/11/24 02:00 Morphine Sulfate 2 mg Q30M PRN IV 06/11/24 02:00 Aspirin 81 mg DAILY PO 06/11/24 10:00 06/19/24 09:18 81 MG Atorvastatin Calcium 40 mg HS PO 06/11/24 22:00 06/18/24 21:32 40 MG Albuterol 2.5 mg Q4HPRN PRN NEB 06/11/24 02:00 06/15/24 02:08 2.5 MG Ipratropium [place] 0.5 mg Q4HPRN PRN NEB 06/11/24 02:00 06/17/24 18:35 0.5 MG Midazolam HCl 50 ml @ 1 mls/hr Q24H IV 06/11/24 02:15 06/16/24 05:17 1 MLS/HR Fentanyl Citrate 250 ml @ 2.5 mls/hr Q24H IV 06/11/24 02:15 06/17/24 05:58 10 MLS/HR Labetalol HCl 10 mg Q2HPRN PRN IV 06/11/24 04:30 06/16/24 01:21 10 MG Heparin Sodium (Porcine) 5,000 units Q12HR SC 06/11/24 10:00 06/19/24 09:17 5,000 UNITS Pantoprazole Sodium 40 mg DAILY IV 06/11/24 10:00 06/19/24 13:27 40 MG Dextrose 50 ml UD PRN IV 06/11/24 07:15 06/12/24 14:52 50 ML Ceftriaxone Sodium 50 ml @ 100 mls/hr DAILY@09 IV 06/13/24 09:00 06/19/24 13:29 100 MLS/HR Acetaminophen 650 mg Q6HP PRN GT 06/11/24 23:45 06/12/24 02:48 650 MG Nicardipine HCl 250 ml @ 50 mls/hr Q5H IV 06/13/24 14:45 UNV Enteral Nutritional Formula 1,000 ml 25ML/HR GT 06/15/24 13:30 06/15/24 21:22 1,000 ML Diagnostic Test (Pha) 1 strip Q6HR 06/16/24 18:00 06/19/24 12:00 1 STRIP Hydralazine HCl 10 mg Q6HPRN PRN IV 06/17/24 00:00 06/18/24 09:04 10 MG Nicardipine HCl 50 mg/Sodium Chloride 250 ml @ 25 mls/hr Q10H IV 06/18/24 12:00 06/19/24 09:07 25 MLS/HR laboratory and microbiology Laboratory Tests 06/19/24 03:30 Test 06/19/24 03:30 Range/Units Serum Glucose 188 H 74-106 mg/dL Assessment/Plan 1. Acute hypoxic respiratory failure requiring intubation with mechanical ventilation secondary to metabolic encephalopathy 2. 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 Hypertensive emergency with the end-organ involvement , off the nicardipine drip 5. End-stage renal disease on hemodialysis received hemodialysis on06/14 6. Coronary artery disease 7. L3-4 lumbar diskitis/osteomyelitis, resume IV vancomycin and consult infectious disease specialist Advised the nurse to give patient morphine prior to going to MRI of the lumbar spine and see if we can get that study done today given Infectious Disease recommending to decide on antibiotics. Otherwise continue rest of supportive care and treatment and no changes to present management. Discussed with the nurse regarding care plan. Problems(with codes): (1) CVA (cerebral vascular accident) (2) Fluid overload (3) Back pain Dietary Evaluation Review Comments: 1) If patient remains NPO > 7 days, consider EN/TPN to meet at least 75% estimated needs 2) If GI route is preferred, consider Nepro @ 25 mL/hr goal rate as tolerated. EN regimen will provide 1080 kcals, 49g Pro, and 447 mL free H2O per 24 hrs. EN regimen will meet ~90% estimated daily energy needs and ~47% estimated daily protein needs 3) Initiate Nephro-Susan @ 1 tb qd 4) Advance to 60g CCHO renal standard diet when medically feasible, pending [employer] approval 5) Follow-up with nephrology, cardiology, and pulmonology 6) Continue to monitor I&O, labs, and skin integrity Expected Outcomes/Goals: 1) patient to receive nutrition support within 7 days of NPO status 2) labs to improve 3) wound to improve 4) patient to be extubated and diet to advance 5) f/u in 2-3 days Plan discussed with: Other BRIANNE CADE MD June 19, 2024 15:32
--- NOTE | 2024-06-19 16:16 | DVHPN2 ---
Progress Note - Dictate Date Seen: June 19, 2024 Medical Necessity Reason Pt with a Central, PICC or Fol: Yes The following are medically ne: Eagle Catheter Reason for eagle catheter: Strict I&O Subjective remains intubated vital signs Vital Sign Date Time Temp Pulse Resp B/P (MAP) Pulse Ox O2 Delivery O2 Flow Rate FiO2 06/19/24 14:24 102 22 139/60 (86) 97 30 06/19/24 12:15 98.3 98.3 06/19/24 12:00 Mechanical Ventilator+ 06/17/24 18:30 2.0 Total Intake and Output 06/18/24 06/18/24 06/19/24 15:00 23:00 07:00 Intake Total 290.0 ml 269.5 ml 385.0 ml Output Total 10 ml 10 ml Balance 290.0 ml 259.5 ml 375.0 ml medications Current Medications Medications Dose Ordered Sig/Eric Route Start Time Stop Time Status Last Admin Dose Admin Ondansetron HCl 4 mg Q4HP PRN IV 06/11/24 02:00 Nitroglycerin 0.4 mg Q5MINP PRN SL 06/11/24 02:00 Morphine Sulfate 2 mg Q30M PRN IV 06/11/24 02:00 Aspirin 81 mg DAILY PO 06/11/24 10:00 06/19/24 09:18 81 MG Atorvastatin Calcium 40 mg HS PO 06/11/24 22:00 06/18/24 21:32 40 MG Albuterol 2.5 mg Q4HPRN PRN NEB 06/11/24 02:00 06/15/24 02:08 2.5 MG Ipratropium [place] 0.5 mg Q4HPRN PRN NEB 06/11/24 02:00 06/17/24 18:35 0.5 MG Midazolam HCl 50 ml @ 1 mls/hr Q24H IV 06/11/24 02:15 06/16/24 05:17 1 MLS/HR Fentanyl Citrate 250 ml @ 2.5 mls/hr Q24H IV 06/11/24 02:15 06/17/24 05:58 10 MLS/HR Labetalol HCl 10 mg Q2HPRN PRN IV 06/11/24 04:30 06/16/24 01:21 10 MG Heparin Sodium (Porcine) 5,000 units Q12HR SC 06/11/24 10:00 06/19/24 09:17 5,000 UNITS Pantoprazole Sodium 40 mg DAILY IV 06/11/24 10:00 06/19/24 13:27 40 MG Dextrose 50 ml UD PRN IV 06/11/24 07:15 06/12/24 14:52 50 ML Ceftriaxone Sodium 50 ml @ 100 mls/hr DAILY@09 IV 06/13/24 09:00 06/19/24 13:29 100 MLS/HR Acetaminophen 650 mg Q6HP PRN GT 06/11/24 23:45 06/12/24 02:48 650 MG Nicardipine HCl 250 ml @ 50 mls/hr Q5H IV 06/13/24 14:45 UNV Enteral Nutritional Formula 1,000 ml 25ML/HR GT 06/15/24 13:30 06/15/24 21:22 1,000 ML Diagnostic Test (Pha) 1 strip Q6HR 06/16/24 18:00 06/19/24 12:00 1 STRIP Hydralazine HCl 10 mg Q6HPRN PRN IV 06/17/24 00:00 06/18/24 09:04 10 MG Nicardipine HCl 50 mg/Sodium Chloride 250 ml @ 25 mls/hr Q10H IV 06/18/24 12:00 06/19/24 09:07 25 MLS/HR Morphine Sulfate 2 mg Q4HPRN PRN IV 06/19/24 15:45 objective Gen: On mechanical ventilation Lungs Diminished air entry at bases CV: RR, no pericardial rub Abdomen: soft, mildly distended, low BS Trace edema of legs laboratory and microbiology Laboratory Tests 06/19/24 03:30 Test 06/19/24 03:30 Range/Units Serum Glucose 188 H 74-106 mg/dL Assessment/Plan End-stage renal disease on HD Hyponatremia Anemia of renal disease. Respiratory failure, on mechanical ventilation for airway protection. Subacute stroke. T-spine fracture. Leukopenia Plan: HD today HD to continue on TTS schedule MRI lumbar spine for evaluation of lumbar phlegmon per ID on tube feeding Daily BMP ANANTH post HD as needed, goal Hb: 10-11 g/dl Dietary Evaluation Review Comments: 1) If patient remains NPO > 7 days, consider EN/TPN to meet at least 75% estimated needs 2) If GI route is preferred, consider Nepro @ 25 mL/hr goal rate as tolerated. EN regimen will provide 1080 kcals, 49g Pro, and 447 mL free H2O per 24 hrs. EN regimen will meet ~90% estimated daily energy needs and ~47% estimated daily protein needs 3) Initiate Nephro-Susan @ 1 tb qd 4) [facility] when medically feasible, pending [facility] approval 5) Follow-up with nephrology, cardiology, and pulmonology 6) Continue to monitor I&O, labs, and skin integrity Expected Outcomes/Goals: 1) patient to receive nutrition support within 7 days of NPO status 2) labs to improve 3) wound to improve 4) patient to be extubated and diet to advance 5) f/u in 2-3 days Plan discussed with: ILANA Andersen MD June 19, 2024 16:16
[2024-06-19] MEDS: MORPHINE SULFATE INJ 2 MG/ml SYRG IV PRN (16:24)
--- NOTE | 2024-06-19 17:41 | DVH ---
EXAM: MRI LUMBAR SPINE WO CONTRAST CLINICAL HISTORY: back pain COMPARISON: CT lumbar spine 06/10/2024 TECHNIQUE: MRI imaging of the lumbar was performed on a MRI imaging system without intravenous contrast. FINDINGS: 4 [id number] lumbar-type vertebra with sacralization of L5. Mild straightening of the lumbar roseanne dosis. Chronic Grade 1 anterolisthesis of L3 on L4. Endplate degenerative marrow signal with endplate irregularities at L3-L4 and L4-L5. Mild edema within the disc space at L3-L4.. Endplate degenerativ e marrow signal superior endplate of T12. Limited evaluation due to artifact. The conus terminates at the level of the lower vertebral body of L1 with no abnormal cord signal. T12-L1: No significant spinal canal or neural foramina stenosis. L1-L2: No significant spinal canal or neural foramina stenosis. L2-L3: Minimal posterior disc bulge without significant spinal canal or neural foramina stenosis. L3-L4: Posterior disc osteophyte complex with ligamentum flavum hypertrophy causing severe spinal can al stenosis with severe bilateral lateral recess narrowing. Severe [id number]-right neural for sylvia stenosis. Bilateral facet effusion. L4-L5: Mild posterior disc bulge with superimposed left eccentric disc extrusion without significant spinal canal stenosis. Moderate right to severe left-sided neural foramina stenosis. Mild right facet effusion. L5-S1: No significant spinal canal or neural foramina stenosis. Mild atrophy of the paraspinal and gluteal muscles. IMPRESSION: Severe spinal canal stenosis with severe bilateral lateral recess narrowing at L3-L4. Severe bilateral neural foramina stenosis at L3-L4 with moderate right and severe left-sided neural f oramina stenosis at L4-L5. Grade 1 anterolisthesis of L4 on L5.
[2024-06-19] MEDS ORDERED: DEXTROSE (50%) 50ML SYRG IV PRN (18:15)
--- NOTE | 2024-06-19 20:39 | DVHPN2 ---
Progress Note - Dictate Date Seen: June 19, 2024 Medical Necessity Reason Pt with a Central, PICC or Fol: Yes The following are medically ne: Eagle Catheter Reason for eagle catheter: Strict I&O Subjective patient is agitated and moving she got a dose of morphine before MRI spine vital signs Vital Sign Date Time Temp Pulse Resp B/P (MAP) Pulse Ox O2 Delivery O2 Flow Rate FiO2 06/19/24 19:00 90 18 144/53 (83) 97 06/19/24 18:05 Mechanical Ventilator 06/19/24 18:05 30 30 06/19/24 16:00 98.5 98.5 06/17/24 18:30 2.0 Total Intake and Output 06/18/24 06/18/24 06/19/24 15:00 23:00 07:00 Intake Total 290.0 ml 269.5 ml 422.5 ml Output Total 10 ml 10 ml Balance 290.0 ml 259.5 ml 412.5 ml medications Current Medications Medications Dose Ordered Sig/Eric Route Start Time Stop Time Status Last Admin Dose Admin Ondansetron HCl 4 mg Q4HP PRN IV 06/11/24 02:00 Nitroglycerin 0.4 mg Q5MINP PRN SL 06/11/24 02:00 Morphine Sulfate 2 mg Q30M PRN IV 06/11/24 02:00 Aspirin 81 mg DAILY PO 06/11/24 10:00 06/19/24 09:18 81 MG Atorvastatin Calcium 40 mg HS PO 06/11/24 22:00 06/18/24 21:32 40 MG Albuterol 2.5 mg Q4HPRN PRN NEB 06/11/24 02:00 06/15/24 02:08 2.5 MG Ipratropium [place] 0.5 mg Q4HPRN PRN NEB 06/11/24 02:00 06/17/24 18:35 0.5 MG Midazolam HCl 50 ml @ 1 mls/hr Q24H IV 06/11/24 02:15 06/16/24 05:17 1 MLS/HR Fentanyl Citrate 250 ml @ 2.5 mls/hr Q24H IV 06/11/24 02:15 06/17/24 05:58 10 MLS/HR Labetalol HCl 10 mg Q2HPRN PRN IV 06/11/24 04:30 06/16/24 01:21 10 MG Heparin Sodium (Porcine) 5,000 units Q12HR SC 06/11/24 10:00 06/19/24 09:17 5,000 UNITS Pantoprazole Sodium 40 mg DAILY IV 06/11/24 10:00 06/19/24 13:27 40 MG Dextrose 50 ml UD PRN IV 06/11/24 07:15 06/12/24 14:52 50 ML Ceftriaxone Sodium 50 ml @ 100 mls/hr DAILY@09 IV 06/13/24 09:00 06/19/24 13:29 100 MLS/HR Acetaminophen 650 mg Q6HP PRN GT 06/11/24 23:45 06/12/24 02:48 650 MG Nicardipine HCl 250 ml @ 50 mls/hr Q5H IV 06/13/24 14:45 UNV Enteral Nutritional Formula 1,000 ml 25ML/HR GT 06/15/24 13:30 06/15/24 21:22 1,000 ML Diagnostic Test (Pha) 1 strip Q6HR 06/16/24 18:00 06/19/24 12:00 1 STRIP Hydralazine HCl 10 mg Q6HPRN PRN IV 06/17/24 00:00 06/18/24 09:04 10 MG Nicardipine HCl 50 mg/Sodium Chloride 250 ml @ 25 mls/hr Q10H IV 06/18/24 12:00 06/19/24 09:07 25 MLS/HR Morphine Sulfate 2 mg Q4HPRN PRN IV 06/19/24 15:45 06/19/24 16:24 2 MG Diagnostic Test (Pha) 1 strip Q6HR 06/20/24 00:00 Insulin Human Regular Q6HR SC 06/20/24 00:00 Dextrose 50 ml UD PRN IV 06/19/24 18:15 objective General Appearance: intubated and sedated HEENT: ET tube Respiratory: Other (Intubated on mechanical ventilator) Cardiovascular: Regular rate, Normal S1, Normal S2 Abdominal: Normal bowel sounds, Soft, No tenderness Extremities: Other (BLE pitting edema 2+) Skin: No rashes Neuro: Other (Altered non arousable) Psych/Mental Status: Other (Unable to assess) laboratory and microbiology Laboratory Tests 06/19/24 03:30 Test 06/19/24 03:30 Range/Units Serum Glucose 188 H 74-106 mg/dL Assessment/Plan Patient is a 63-year-old female presents to the hospital with: Leucopenia Vertebral Discitis subacute CVA Acute encephalopathy Acute hypoxic respiratory S/P intubation on mechanical ventilator ESRD on HD Fluid overload Hypertensive emergency Hx T12 compression fracture Recommendations: she is off sedation and are trying to extubate her reviewed [facility] records in detail: She had low wbc from 03/23/2024 with 3.4 with intermittent 1.8 and she has been admitted 2-3 times and wbc is in same range. no work up done She had mri spine with on 05/22 shows hypointense T1 and hyperintense T2 at L3-L4 concerning for discitis osteomyelitis. Hyperintense T2 signal along epidural space L3-L4 for 5mm AP diameter concerning for Phlegmon. ID Dr Carlisle saw the patient and recommended IV Vancomycin for 6 weeks. There is no positive blood cultures or biopsy done. His notes on 05/23 recommended 6 weeks of IV vancomycin ( switched from ceftriaxone for low wbc). since leucopenia was present in prior admissions too, its unlikely due to Vancomycin discussed with nephrology, reviewed old labs, back in 2022 also her wbc was in 3k. unsure if she had work up done platelets were in 200 in 2023 but later its been low too recommend repeat MRI lumbar spine to evaluate epidural phlegmon in previous mri ( of note it was wo contrast) MRI today, will follow up on results peripheral smear manual ordered Hematology consult but unavailable; patient needs work up for her chronic leucopenia, consider following up as outpt ( heme unavailable for inpatient consult) monitor cbc Continue IV Ceftriaxone for now; vancomycin on hold Monitor Vancomycin Trough, on HD 06/16, Vancomycin Random is 27 on MV Antibiotic status: Ceftriaxone IV [Started on 06/11 - Ongoing] Vancomycin IV [Started on 06/11 - 06/16] 06/11, Respiratory culture preliminary showed Normal Oropharyngeal Trish 06/11, Blood culture showed no growth 06/13, MRSA screening came back negative Review of Imagin/24, Chest x-ray showed Cardiomegaly with mild congestion. Prognosis guarded crit time 30 minutes spent, plan communicated to RN Thank you for consult. Dietary Evaluation Review Comments: 1) If patient remains NPO > 7 days, consider EN/TPN to meet at least 75% estimated needs 2) If GI route is preferred, consider Nepro @ 25 mL/hr goal rate as tolerated. EN regimen will provide 1080 kcals, 49g Pro, and 447 mL free H2O per 24 hrs. EN regimen will meet ~90% estimated daily energy needs and ~47% estimated daily protein needs 3) Initiate Nephro-Susan @ 1 tb qd 4) Advance to 60g CCHO renal standard diet when medically feasible, pending [facility] approval 5) Follow-up with nephrology, cardiology, and pulmonology 6) Continue to monitor I&O, labs, and skin integrity Expected Outcomes/Goals: 1) patient to receive nutrition support within 7 days of NPO status 2) labs to improve 3) wound to improve 4) patient to be extubated and diet to advance 5) f/u in 2-3 days Plan discussed with: GONZÁLEZ Vidal MD June 19, 2024 20:39
[2024-06-19] MEDS ORDERED: EPOETIN ALFA-EPBX 4,000 UNIT/ML VIAL SC ONE (21:00)
[2024-06-19] MEDS: EPOETIN ALFA-EPBX 10,000 UNIT/1ML VIAL SC ONE ×2 (22:09→22:25)
[2024-06-19] MEDS: ACCU-CHEK COMFORT CURVE STRIP VI SCH (23:15)
[2024-06-19] MEDS: InsuLIN REG 1unit/0.01ml Soln (100units/ml) SC SCH (23:18)
--- NOTE | 2024-06-19 23:23 | DVHPN2 ---
Progress Note - Dictate Date Seen: June 19, 2024 Medical Necessity Reason Pt with a Central, PICC or Fol: Yes The following are medically ne: Eagle Catheter Reason for eagle catheter: Strict I&O Subjective Patient was seen and evaluated in follow up in the ICU. Patient is intubated and sedated on ventilator. 30% FiO2. WBC 16, HGB 9.6, HCT 29.7, K 3.2, BUN 55, COMPENSATION SPECIALIST 6.21. Patient's potassium was replaced. Apparently patient did not go for her MRI of the lumbar spine as ordered by Infectious Disease due to agitation. vital signs Vital Sign Date Time Temp Pulse Resp B/P (MAP) Pulse Ox O2 Delivery O2 Flow Rate FiO2 06/19/24 10:10 95 21 129/49 (75) 97 30 06/19/24 04:00 97.9 97.9 06/18/24 20:00 Mechanical Ventilator+ 06/17/24 18:30 2.0 Total Intake and Output 06/18/24 06/18/24 06/19/24 15:00 23:00 07:00 Intake Total 290.0 ml 269.5 ml 385.0 ml Output Total 10 ml 10 ml Balance 290.0 ml 259.5 ml 375.0 ml medications Current Medications Medications Dose Ordered Sig/Eric Route Start Time Stop Time Status Last Admin Dose Admin Ondansetron HCl 4 mg Q4HP PRN IV 06/11/24 02:00 Nitroglycerin 0.4 mg Q5MINP PRN SL 06/11/24 02:00 Morphine Sulfate 2 mg Q30M PRN IV 06/11/24 02:00 Aspirin 81 mg DAILY PO 06/11/24 10:00 06/19/24 09:18 81 MG Atorvastatin Calcium 40 mg HS PO 06/11/24 22:00 06/18/24 21:32 40 MG Albuterol 2.5 mg Q4HPRN PRN NEB 06/11/24 02:00 06/15/24 02:08 2.5 MG Ipratropium [place] 0.5 mg Q4HPRN PRN NEB 06/11/24 02:00 06/17/24 18:35 0.5 MG Midazolam HCl 50 ml @ 1 mls/hr Q24H IV 06/11/24 02:15 06/16/24 05:17 1 MLS/HR Fentanyl Citrate 250 ml @ 2.5 mls/hr Q24H IV 06/11/24 02:15 06/17/24 05:58 10 MLS/HR Labetalol HCl 10 mg Q2HPRN PRN IV 06/11/24 04:30 06/16/24 01:21 10 MG Heparin Sodium (Porcine) 5,000 units Q12HR SC 06/11/24 10:00 06/19/24 09:17 5,000 UNITS Pantoprazole Sodium 40 mg DAILY IV 06/11/24 10:00 06/18/24 10:17 40 MG Dextrose 50 ml UD PRN IV 06/11/24 07:15 06/12/24 14:52 50 ML Ceftriaxone Sodium 50 ml @ 100 mls/hr DAILY@09 IV 06/13/24 09:00 06/18/24 09:04 100 MLS/HR Acetaminophen 650 mg Q6HP PRN GT 06/11/24 23:45 06/12/24 02:48 650 MG Nicardipine HCl 250 ml @ 50 mls/hr Q5H IV 06/13/24 14:45 UNV Enteral Nutritional Formula 1,000 ml 25ML/HR GT 06/15/24 13:30 06/15/24 21:22 1,000 ML Diagnostic Test (Pha) 1 strip Q6HR 06/16/24 18:00 06/19/24 05:54 1 STRIP Hydralazine HCl 10 mg Q6HPRN PRN IV 06/17/24 00:00 06/18/24 09:04 10 MG Nicardipine HCl 50 mg/Sodium Chloride 250 ml @ 25 mls/hr Q10H IV 06/18/24 12:00 06/19/24 09:07 25 MLS/HR objective GENERAL: Intubated on ventilator. EYES: PERRL, EOMI. Anicteric. HENT: Moist mucous membranes. LUNGS: Decreased breath sounds. CARDIOVASCULAR: Regular rate and rhythm. ABDOMEN: Soft, nontender and nondistended. EXTREMITIES: No edema. NEUROLOGIC: No focal neurological deficits. SKIN: Warm, dry. laboratory and microbiology Laboratory Tests 06/19/24 03:30 Test 06/19/24 03:30 Range/Units Serum Glucose 188 H 74-106 mg/dL Problem List Acute CVA. Hypertensive emergency. Questionable coronary artery disease. Moderate pericardial effusion. Acute hypoxic respiratory failure. End-stage renal disease on hemodialysis. History of T12 compression fracture. Assessment/Plan Continued all current supportive medical care. Aspirin, Lipitor. IV antibiotics as ordered. Vasopressors for hemodynamic support. Nitro SL. Morphine for pain management. Additional plan as per the hospital course. Critical care time of 45 minutes provided to include time spent evaluation of patient at bedside, when appropriate patient/family education for diagnosis, treatment plan, review of pertinent medical information and discussion of care with specialty providers and PCP. Mechanical ventilator parameters, treatment and adjustments have personally been reviewed by me and treatment plan by congressional aide has also been reviewed. Dietary Evaluation Review Comments: 1) If patient remains NPO > 7 days, consider EN/TPN to meet at least 75% estimated needs 2) If GI route is preferred, consider Nepro @ 25 mL/hr goal rate as tolerated. EN regimen will provide 1080 kcals, 49g Pro, and 447 mL free H2O per 24 hrs. EN regimen will meet ~90% estimated daily energy needs and ~47% estimated daily protein needs 3) Initiate Nephro-Susan @ 1 tb qd 4) Advance to 60g CCHO renal standard diet when medically feasible, pending [facility] approval 5) Follow-up with nephrology, cardiology, and pulmonology 6) Continue to monitor I&O, labs, and skin integrity Expected Outcomes/Goals: 1) patient to receive nutrition support within 7 days of NPO status 2) labs to improve 3) wound to improve 4) patient to be extubated and diet to advance 5) f/u in 2-3 days Plan discussed with: Patient SHAUN RAMOS MD June 19, 2024 12:14
[2024-06-20] VITALS (110 sets, daily range): BP systolic 120–160; BP diastolic 41–69; PULSE 69–98; RESP 9–22; TEMP 97.8–99.3; O2SAT 14–100
[2024-06-20] MEDS: EPOETIN ALFA-EPBX 4,000 UNIT/ML VIAL SC ONE (01:00)
[2024-06-20 04:14] LABS: Basophils # (auto) 0.1 10 ^3/uL (0-0.2); Basophils % (auto) 0.6 % (0.0-2.0); Eosinophils # (auto) 0 10 ^3/uL (0-0.8); Hemoglobin 10.2 g/dL (12.2-16.2); Lymphocytes # (auto) 0.5 10 ^3/uL (0.4-5.4); Lymphocytes % (auto) 3.3 % (10.0-50.0); Mean Corpuscular Hemoglobin 29.6 pg (28.0-32.0); Mean Corpuscular Hgb Conc. 33.9 g/dL (32.0-36.0); Mean Corpuscular Volume 87.4 fL (80.0-100.0); Monocytes # (auto) 0.5 10 ^3/uL (0-1.3); Monocytes % (auto) 3.6 % (0.0-12.0); Neutrophils # (auto) 13.8 10 ^3/uL (1.6-8.6); Neutrophils % (auto) 92.5 % (37.0-80.0); Nucleated Red Blood Cells % 0.1 %; Platelet Count (auto) 208 10^3/uL (140-450); Red Blood Cells 3.43 10^6/uL (4.0-5.20); Red Cell Distribution Width 16.1 % (11.8-14.3); White Blood Cell 14.9 10^3/uL (4.4-10.8)
[2024-06-20 04:40] LABS: Alanine Aminotransferase 16 U/L (7-40); Anion Gap 13 (5-15); BUN/Creatinine Ratio 8.3 (10.0-20.0); Calcium 10.3 mg/dL (8.7-10.4); Carbon Dioxide 29 mmol/L (20-31); Chloride 99 mmol/L (98-107); Sodium 141 mmol/L (136-145); Total Protein 6.4 g/dL (5.7-8.2)
[2024-06-20 04:41] LABS: Albumin 3.7 g/dL (3.2-4.8); Aspartate Aminotransferase 25 U/L (13-40)
[2024-06-20 04:42] LABS: Bilirubin, Total 0.4 mg/dL (0.2-1.0)
[2024-06-20 04:44] LABS: Alkaline Phosphatase 150 U/L (46-116); Blood Urea Nitrogen 39 mg/dL (9-23); Glucose 131 mg/dL (74-106); Potassium 3.1 mmol/L (3.5-5.1)
--- NOTE | 2024-06-20 05:18 | DVH ---
CHEST RADIOGRAPH Indication: CHF Technique: Single frontal view of the chest was obtained Comparison: XY CHEST PORTABLE on DOS: 06/19/24, XY CHEST PORTABLE on DOS: 06/18/24, XY CHEST PORTABLE on DOS: 06/17/24 FINDINGS: Lines and Tubes: The endotracheal tube terminates 2.8 cm above the sandra. Right central venous cath eter terminates in the right atrium. Enteric tube terminates in the stomach. Left central venous cath eter terminates in the superior vena cava. Lungs: Left basilar airspace disease. Pleura: No effusion. No pneumothorax. Cardiomediastinal contours: Stable cardiomegaly. Bones: No acute osseous abnormality. IMPRESSION: 1. Appropriate position of the support lines and tubes. 2. Left basilar airspace disease. 3. Cardiomegaly.
--- NOTE | 2024-06-20 06:43 | DVHPN2 ---
Progress Note - Dictate Date Seen: June 20, 2024 Medical Necessity Reason Pt with a Central, PICC or Fol: Yes The following are medically ne: Eagle Catheter Reason for eagle catheter: Strict I&O Subjective remains intubated vital signs Vital Sign Date Time Temp Pulse Resp B/P (MAP) Pulse Ox O2 Delivery O2 Flow Rate FiO2 06/20/24 06:15 93 19 145/59 (87) 98 06/20/24 06:00 30 06/20/24 06:00 Mechanical Ventilator+ 06/20/24 04:00 98.5 98.5 Total Intake and Output 06/19/24 06/19/24 06/20/24 15:00 23:00 07:00 Intake Total 175.0 ml 311.5 ml 175 ml Output Total 30 ml 10 ml Balance 175.0 ml 281.5 ml 165 ml medications Current Medications Medications Dose Ordered Sig/Eric Route Start Time Stop Time Status Last Admin Dose Admin Ondansetron HCl 4 mg Q4HP PRN IV 06/11/24 02:00 Nitroglycerin 0.4 mg Q5MINP PRN SL 06/11/24 02:00 Aspirin 81 mg DAILY PO 06/11/24 10:00 06/19/24 09:18 81 MG Atorvastatin Calcium 40 mg HS PO 06/11/24 22:00 06/19/24 22:04 40 MG Albuterol 2.5 mg Q4HPRN PRN NEB 06/11/24 02:00 06/15/24 02:08 2.5 MG Ipratropium [place] 0.5 mg Q4HPRN PRN NEB 06/11/24 02:00 06/17/24 18:35 0.5 MG Midazolam HCl 50 ml @ 1 mls/hr Q24H IV 06/11/24 02:15 06/16/24 05:17 1 MLS/HR Labetalol HCl 10 mg Q2HPRN PRN IV 06/11/24 04:30 06/16/24 01:21 10 MG Heparin Sodium (Porcine) 5,000 units Q12HR SC 06/11/24 10:00 06/19/24 22:06 5,000 UNITS Pantoprazole Sodium 40 mg DAILY IV 06/11/24 10:00 06/19/24 13:27 40 MG Ceftriaxone Sodium 50 ml @ 100 mls/hr DAILY@09 IV 06/13/24 09:00 06/19/24 13:29 100 MLS/HR Acetaminophen 650 mg Q6HP PRN GT 06/11/24 23:45 06/12/24 02:48 650 MG Nicardipine HCl 250 ml @ 50 mls/hr Q5H IV 06/13/24 14:45 UNV Enteral Nutritional Formula 1,000 ml 25ML/HR GT 06/15/24 13:30 06/15/24 21:22 1,000 ML Hydralazine HCl 10 mg Q6HPRN PRN IV 06/17/24 00:00 06/18/24 09:04 10 MG Nicardipine HCl 50 mg/Sodium Chloride 250 ml @ 25 mls/hr Q10H IV 06/18/24 12:00 06/19/24 23:11 25 MLS/HR Morphine Sulfate 2 mg Q4HPRN PRN IV 06/19/24 15:45 06/19/24 16:24 2 MG Diagnostic Test (Pha) 1 strip Q6HR 06/20/24 00:00 06/20/24 05:14 1 STRIP Insulin Human Regular Q6HR SC 06/20/24 00:00 06/20/24 05:14 2 UNITS Dextrose 50 ml UD PRN IV 06/19/24 18:15 objective Gen: On mechanical ventilation Lungs Diminished air entry at bases CV: RR, no pericardial rub Abdomen: soft, mildly distended, low BS Trace edema of legs laboratory and microbiology Laboratory Tests 06/20/24 03:37 Test 06/20/24 03:37 Range/Units Serum Glucose 131 H 74-106 mg/dL Assessment/Plan End-stage renal disease on HD Hypokalemia Anemia of renal disease. Respiratory failure, on mechanical ventilation for airway protection. Subacute stroke. T-spine fracture. Leukopenia Plan: s/p HD yesterday Next HD on Sunday HD to continue on TTS schedule MRI lumbar spine for evaluation of lumbar phlegmon per ID supplement KCl 10 mEq IV x1 on tube feeding Daily BMP ANANTH post HD as needed, goal Hb: 10-11 g/dl Dietary Evaluation Review Comments: 1) If patient remains NPO > 7 days, consider EN/TPN to meet at least 75% estimated needs 2) If GI route is preferred, consider Nepro @ 25 mL/hr goal rate as tolerated. EN regimen will provide 1080 kcals, 49g Pro, and 447 mL free H2O per 24 hrs. EN regimen will meet ~90% estimated daily energy needs and ~47% estimated daily protein needs 3) Initiate Nephro-Susan @ 1 tb qd 4) Advance to 60g [facility] [place] renal standard diet when medically feasible, pending [facility] approval 5) Follow-up with nephrology, cardiology, and pulmonology 6) Continue to monitor I&O, labs, and skin integrity Expected Outcomes/Goals: 1) patient to receive nutrition support within 7 days of NPO status 2) labs to improve 3) wound to improve 4) patient to be extubated and diet to advance 5) f/u in 2-3 days Plan discussed with: Other ILANA PATINO MD June 20, 2024 06:43
[2024-06-20 07:47] LABS: Base Excess 3.6 mmol/L (-2.0-3.0)
[2024-06-20] MEDS ORDERED: POTASSIUM CHL 20MEQ/100ML 100 ML IV ONE (09:00)
[2024-06-20] MEDS: POTASSIUM CHL 20MEQ/50ML 50 ML IV ONE (09:26)
--- NOTE | 2024-06-20 11:52 | DVHPN2 ---
Progress Note - Dictate Date Seen: June 20, 2024 Medical Necessity Reason Pt with a Central, PICC or Fol: Yes The following are medically ne: Eagle Catheter Reason for eagle catheter: Strict I&O Subjective Patient underwent MRI of the lumbar spine shows severe spinal canal stenosis at multiple levels. No infection identified. Patient is still not fully awake to undergo safe CPAP trials. vital signs Vital Sign Date Time Temp Pulse Resp B/P (MAP) Pulse Ox O2 Delivery O2 Flow Rate FiO2 06/20/24 11:30 98.6 91 17 157/60 (92) 98 209.5 06/20/24 10:46 30 06/20/24 10:00 Mechanical Ventilator+ Total Intake and Output 06/19/24 06/19/24 06/20/24 15:00 23:00 07:00 Intake Total 175.0 ml 311.5 ml 490 ml Output Total 30 ml 10 ml Balance 175.0 ml 281.5 ml 480 ml medications Current Medications Medications Dose Ordered Sig/Eric Route Start Time Stop Time Status Last Admin Dose Admin Ondansetron HCl 4 mg Q4HP PRN IV 06/11/24 02:00 Nitroglycerin 0.4 mg Q5MINP PRN SL 06/11/24 02:00 Aspirin 81 mg DAILY PO 06/11/24 10:00 06/20/24 09:17 81 MG Atorvastatin Calcium 40 mg HS PO 06/11/24 22:00 06/19/24 22:04 40 MG Albuterol 2.5 mg Q4HPRN PRN NEB 06/11/24 02:00 06/15/24 02:08 2.5 MG Ipratropium [place] 0.5 mg Q4HPRN PRN NEB 06/11/24 02:00 06/17/24 18:35 0.5 MG Midazolam HCl 50 ml @ 1 mls/hr Q24H IV 06/11/24 02:15 06/16/24 05:17 1 MLS/HR Labetalol HCl 10 mg Q2HPRN PRN IV 06/11/24 04:30 06/16/24 01:21 10 MG Heparin Sodium (Porcine) 5,000 units Q12HR SC 06/11/24 10:00 06/20/24 09:18 5,000 UNITS Pantoprazole Sodium 40 mg DAILY IV 06/11/24 10:00 06/20/24 09:17 40 MG Ceftriaxone Sodium 50 ml @ 100 mls/hr DAILY@09 IV 06/13/24 09:00 06/20/24 09:17 100 MLS/HR Acetaminophen 650 mg Q6HP PRN GT 06/11/24 23:45 06/12/24 02:48 650 MG Nicardipine HCl 250 ml @ 50 mls/hr Q5H IV 06/13/24 14:45 UNV Enteral Nutritional Formula 1,000 ml 25ML/HR GT 06/15/24 13:30 06/20/24 10:08 1,000 ML Hydralazine HCl 10 mg Q6HPRN PRN IV 06/17/24 00:00 06/18/24 09:04 10 MG Nicardipine HCl 50 mg/Sodium Chloride 250 ml @ 25 mls/hr Q10H IV 06/18/24 12:00 06/19/24 23:11 25 MLS/HR Morphine Sulfate 2 mg Q4HPRN PRN IV 06/19/24 15:45 06/19/24 16:24 2 MG Diagnostic Test (Pha) 1 strip Q6HR 06/20/24 00:00 06/20/24 11:39 1 STRIP Insulin Human Regular Q6HR SC 06/20/24 00:00 06/20/24 11:13 2 UNITS Dextrose 50 ml UD PRN IV 06/19/24 18:15 objective General Appearance: intubated and sedated HEENT: ET tube Respiratory: Other (Intubated on mechanical ventilator) Cardiovascular: Regular rate, Normal S1, Normal S2 Abdominal: Normal bowel sounds, Soft, No tenderness Extremities: Other (BLE pitting edema 2+) Skin: No rashes Neuro: Other (Altered non arousable) Psych/Mental Status: Other (Unable to assess) laboratory and microbiology Laboratory Tests 06/20/24 03:37 Test 06/20/24 03:37 Range/Units Serum Glucose 131 H 74-106 mg/dL Assessment/Plan Patient is a 63-year-old female presents to the hospital with: Leucopenia Vertebral Discitis subacute CVA Acute encephalopathy Acute hypoxic respiratory S/P intubation on mechanical ventilator ESRD on HD Fluid overload Hypertensive emergency Hx T12 compression fracture Recommendations: she is off sedation and are trying to extubate her reviewed [facility] records in detail: She had low wbc from 03/23/2024 with 3.4 with intermittent 1.8 and she has been admitted 2-3 times and wbc is in same range. no work up done She had mri spine with on 05/22 shows hypointense T1 and hyperintense T2 at L3-L4 concerning for discitis osteomyelitis. Hyperintense T2 signal along epidural space L3-L4 for 5mm AP diameter concerning for Phlegmon. ID Dr Carlisle saw the patient and recommended IV Vancomycin for 6 weeks. There is no positive blood cultures or biopsy done. His notes on 05/23 recommended 6 weeks of IV vancomycin ( switched from ceftriaxone for low wbc). since leucopenia was present in prior admissions too, its unlikely due to Vancomycin discussed with nephrology, reviewed old labs, back in 2022 also her wbc was in 3k. unsure if she had work up done platelets were in 200 in 2023 but later its been low too recommend repeat MRI lumbar spine to evaluate epidural phlegmon in previous mri ( of note it was wo contrast) MRI showed Severe spinal canal stenosis with severe bilateral lateral recess narrowing at L3-L4. Severe bilateral neural foramina stenosis at L3-L4 with moderate right and severe left-sided neural foramina stenosis at L4-L5. Grade 1 anterolisthesis of L4 on L5. peripheral smear manual ordered Hematology consult but unavailable; patient needs work up for her chronic leucopenia, consider following up as outpt ( heme unavailable for inpatient consult) monitor cbc Continue IV Ceftriaxone for now; vancomycin on hold Monitor Vancomycin Trough, on HD 06/16, Vancomycin Random is 27 on MV Antibiotic status: Ceftriaxone IV [Started on 06/11 - Ongoing] Vancomycin IV [Started on 06/11 - 06/16] 06/11, Respiratory culture preliminary showed Normal Oropharyngeal Trish 06/11, Blood culture showed no growth 06/13, MRSA screening came back negative Review of Imagin/24, Chest x-ray showed Cardiomegaly with mild congestion. Prognosis guarded crit time 30 minutes spent, plan communicated to RN Thank you for consult. Dietary Evaluation Review Comments: 1) If patient remains NPO > 7 days, consider EN/TPN to meet at least 75% estimated needs 2) If GI route is preferred, consider Nepro @ 25 mL/hr goal rate as tolerated. EN regimen will provide 1080 kcals, 49g Pro, and 447 mL free H2O per 24 hrs. EN regimen will meet ~90% estimated daily energy needs and ~47% estimated daily protein needs 3) Initiate Nephro-Susan @ 1 tb qd 4) Advance to 60g CCHO renal standard diet when medically feasible, pending [facility] approval 5) Follow-up with nephrology, cardiology, and pulmonology 6) Continue to monitor I&O, labs, and skin integrity Expected Outcomes/Goals: 1) patient to receive nutrition support within 7 days of NPO status 2) labs to improve 3) wound to improve 4) patient to be extubated and diet to advance 5) f/u in 2-3 days Plan discussed with: GONZÁLEZ Vidal MD June 20, 2024 11:52
--- NOTE | 2024-06-20 12:56 | DVHPN2 ---
Progress Note - Dictate Date Seen: June 20, 2024 Medical Necessity Reason Pt with a Central, PICC or Fol: Yes The following are medically ne: Eagle Catheter Reason for eagle catheter: Strict I&O Subjective Discussed with the nurse in the ICU. She underwent MRI of the lumbar spine shows severe spinal canal stenosis at multiple levels. No infection identified. Patient is still not fully awake to undergo safe CPAP trials. Etymology Teacher is at bedside. Patient was on nicardipine drip briefly for blood pressure now it has improved. vital signs Vital Sign Date Time Temp Pulse Resp B/P (MAP) Pulse Ox O2 Delivery O2 Flow Rate FiO2 06/20/24 12:29 94 19 144/54 (84) 100 30 06/20/24 11:30 98.6 209.5 06/20/24 10:00 Mechanical Ventilator+ Total Intake and Output 06/19/24 06/19/24 06/20/24 15:00 23:00 07:00 Intake Total 175.0 ml 311.5 ml 490 ml Output Total 30 ml 10 ml Balance 175.0 ml 281.5 ml 480 ml medications Current Medications Medications Dose Ordered Sig/Eric Route Start Time Stop Time Status Last Admin Dose Admin Ondansetron HCl 4 mg Q4HP PRN IV 06/11/24 02:00 Nitroglycerin 0.4 mg Q5MINP PRN SL 06/11/24 02:00 Aspirin 81 mg DAILY PO 06/11/24 10:00 06/20/24 09:17 81 MG Atorvastatin Calcium 40 mg HS PO 06/11/24 22:00 06/19/24 22:04 40 MG Albuterol 2.5 mg Q4HPRN PRN NEB 06/11/24 02:00 06/15/24 02:08 2.5 MG Ipratropium [place] 0.5 mg Q4HPRN PRN NEB 06/11/24 02:00 06/17/24 18:35 0.5 MG Midazolam HCl 50 ml @ 1 mls/hr Q24H IV 06/11/24 02:15 06/16/24 05:17 1 MLS/HR Labetalol HCl 10 mg Q2HPRN PRN IV 06/11/24 04:30 06/16/24 01:21 10 MG Heparin Sodium (Porcine) 5,000 units Q12HR SC 06/11/24 10:00 06/20/24 09:18 5,000 UNITS Pantoprazole Sodium 40 mg DAILY IV 06/11/24 10:00 06/20/24 09:17 40 MG Ceftriaxone Sodium 50 ml @ 100 mls/hr DAILY@09 IV 06/13/24 09:00 06/20/24 09:17 100 MLS/HR Acetaminophen 650 mg Q6HP PRN GT 06/11/24 23:45 06/12/24 02:48 650 MG Nicardipine HCl 250 ml @ 50 mls/hr Q5H IV 06/13/24 14:45 UNV Enteral Nutritional Formula 1,000 ml 25ML/HR GT 06/15/24 13:30 06/20/24 10:08 1,000 ML Hydralazine HCl 10 mg Q6HPRN PRN IV 06/17/24 00:00 06/20/24 12:04 10 MG Nicardipine HCl 50 mg/Sodium Chloride 250 ml @ 25 mls/hr Q10H IV 06/18/24 12:00 06/19/24 23:11 25 MLS/HR Morphine Sulfate 2 mg Q4HPRN PRN IV 06/19/24 15:45 06/19/24 16:24 2 MG Diagnostic Test (Pha) 1 strip Q6HR 06/20/24 00:00 06/20/24 11:39 1 STRIP Insulin Human Regular Q6HR SC 06/20/24 00:00 06/20/24 11:13 2 UNITS Dextrose 50 ml UD PRN IV 06/19/24 18:15 objective Off sedation comfortable in bed on ventilator without distress. HEENT pupils equal round react to light. Neck supple. Heart regular rate and rhythm S1-S2. Lungs fair air movement without wheezing. Abdomen soft positive bowel sounds. Extremities improved edema. laboratory and microbiology Laboratory Tests 06/20/24 03:37 Test 06/20/24 03:37 Range/Units Serum Glucose 131 H 74-106 mg/dL Assessment/Plan 1. Acute hypoxic respiratory failure requiring intubation with mechanical ventilation secondary to metabolic encephalopathy 2. 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 Hypertensive emergency with the end-organ involvement , off the nicardipine drip 5. End-stage renal disease on hemodialysis received hemodialysis on06/14 6. Coronary artery disease Her MRI of the lumbar spine does not show any evidence of diskitis or osteomyelitis/infection. For now continue present management as she is on. I will add long-acting calcium channel eulalio and beta eulalio for blood pressure control orally through OG-tube. Otherwise continue rest of supportive care and treatment and further clinical management per clinical course and recommendations from the consultants. Discussed with the nurse at bedside Dietary Evaluation Review Comments: 1) If patient remains NPO > 7 days, consider EN/TPN to meet at least 75% estimated needs 2) If GI route is preferred, consider Nepro @ 25 mL/hr goal rate as tolerated. EN regimen will provide 1080 kcals, 49g Pro, and 447 mL free H2O per 24 hrs. EN regimen will meet ~90% estimated daily energy needs and ~47% estimated daily protein needs 3) Initiate Nephro-Susan @ 1 tb qd 4) Advance to 60g CCHO renal standard diet when medically feasible, pending [facility] approval 5) Follow-up with nephrology, cardiology, and pulmonology 6) Continue to monitor I&O, labs, and skin integrity Expected Outcomes/Goals: 1) patient to receive nutrition support within 7 days of NPO status 2) labs to improve 3) wound to improve 4) patient to be extubated and diet to advance 5) f/u in 2-3 days Plan discussed with: BRIANNE Gilbert MD June 20, 2024 12:56
[2024-06-20] MEDS: NIFEdipine ER 30 MG TAB PO ONE (13:22)
--- NOTE | 2024-06-20 14:55 | DVHPN2 ---
Progress Note Date Seen: June 20, 2024 Resident Creating Document: JEROME WHITESIDE RESIDENT Medical Necessity Reason Pt with a Central, PICC or Fol: Yes The following are medically ne: Eagle Catheter Reason for eagle catheter: Strict I&O Subjective Review of Systems Patient is intubated on ventilator. Neutropenia Resolved. Off Sedation. Objective vital signs Vital Sign Date Time Temp Pulse Resp B/P (MAP) Pulse Ox O2 Delivery O2 Flow Rate FiO2 06/20/24 14:45 99.1 85 18 134/49 (77) 100 210.4 06/20/24 14:01 30 06/20/24 12:00 Mechanical Ventilator+ Total Intake and Output 06/19/24 06/19/24 06/20/24 15:00 23:00 07:00 Intake Total 175.0 ml 311.5 ml 490 ml Output Total 30 ml 10 ml Balance 175.0 ml 281.5 ml 480 ml medications Current Medications Medications Dose Ordered Sig/Eric Route Start Time Stop Time Status Last Admin Dose Admin Ondansetron HCl 4 mg Q4HP PRN IV 06/11/24 02:00 Nitroglycerin 0.4 mg Q5MINP PRN SL 06/11/24 02:00 Aspirin 81 mg DAILY PO 06/11/24 10:00 06/20/24 09:17 81 MG Atorvastatin Calcium 40 mg HS PO 06/11/24 22:00 06/19/24 22:04 40 MG Albuterol 2.5 mg Q4HPRN PRN NEB 06/11/24 02:00 06/15/24 02:08 2.5 MG Ipratropium [place] 0.5 mg Q4HPRN PRN NEB 06/11/24 02:00 06/17/24 18:35 0.5 MG Heparin Sodium (Porcine) 5,000 units Q12HR SC 06/11/24 10:00 06/20/24 09:18 5,000 UNITS Pantoprazole Sodium 40 mg DAILY IV 06/11/24 10:00 06/20/24 09:17 40 MG Ceftriaxone Sodium 50 ml @ 100 mls/hr DAILY@09 IV 06/13/24 09:00 06/20/24 09:17 100 MLS/HR Acetaminophen 650 mg Q6HP PRN GT 06/11/24 23:45 06/12/24 02:48 650 MG Nicardipine HCl 250 ml @ 50 mls/hr Q5H IV 06/13/24 14:45 UNV Enteral Nutritional Formula 1,000 ml 25ML/HR GT 06/15/24 13:30 06/20/24 10:08 1,000 ML Hydralazine HCl 10 mg Q6HPRN PRN IV 06/17/24 00:00 06/20/24 12:04 10 MG Nicardipine HCl 50 mg/Sodium Chloride 250 ml @ 25 mls/hr Q10H IV 06/18/24 12:00 06/20/24 14:28 25 MLS/HR Morphine Sulfate 2 mg Q4HPRN PRN IV 06/19/24 15:45 06/19/24 16:24 2 MG Diagnostic Test (Pha) 1 strip Q6HR 06/20/24 00:00 06/20/24 11:39 1 STRIP Insulin Human Regular Q6HR SC 06/20/24 00:00 06/20/24 11:13 2 UNITS Dextrose 50 ml UD PRN IV 06/19/24 18:15 Metoprolol Tartrate 25 mg BID PO 06/20/24 22:00 Nifedipine 60 mg DAILY PO 06/21/24 10:00 Examination GENERAL: Intubated on ventilator. EYES: PERRL, EOMI. Anicteric. HENT: Moist mucous membranes. LUNGS: Decreased breath sounds. CARDIOVASCULAR: Regular rate and rhythm. ABDOMEN: Soft, nontender and nondistended. EXTREMITIES: No edema. NEUROLOGIC: No focal neurological deficits. SKIN: Warm, dry. laboratory and microbiology Laboratory Tests 06/20/24 03:37 Test 06/20/24 03:37 Range/Units Serum Glucose 131 H 74-106 mg/dL Microbiology Date/Time Source Procedure Growth Status 06/13/24 08:45 Nose MRSA Screen - Final Complete 06/11/24 23:55 Blood Blood Culture - Final NO GROWTH AFTER 5 DAYS OF INCUBATION. Complete Problem List/Assessment/Plan Problem List/Assessment/Plan Acute hypoxic respiratory failure Altered mental status Acute CVA Acute encephalopathy ESRD on hemodialysis Vent support Titrate FIO2 to keep O2 saturation above 90%. Daily ABG and CXR while intubated Sedate for ventilator synchrony Sedation holiday daily check for cuff leak If patient follows commands, proceed to weaning trial Pressure support 08/23. extubate when ready Pressors as necessary for hemodynamic support Titrate to keep mean arterial pressure greater than 65 mmHg. HD per Nephrology Monitor renal function Monitor electrolytes. Supplement as necessary. Monitor ins and outs. Maintain euvolemia. Amyloid shows chronic frontal lobe infarct Discontinue steroid as neutropenia resolved Okay to proceed CPAP every day Extubate when patient is more awake nutrition/glycemic control Start amlodipine 10 mg daily Metoprolol [address] reviewed: Sub- Acute stroke. Case Discussed with Dr. Mckeon. Plan discussed with: Other (RN) Dietary Evaluation Review Comments: 1) If patient remains NPO > 7 days, consider EN/TPN to meet at least 75% estimated needs 2) If GI route is preferred, consider Nepro @ 25 mL/hr goal rate as tolerated. EN regimen will provide 1080 kcals, 49g Pro, and 447 mL free H2O per 24 hrs. EN regimen will meet ~90% estimated daily energy needs and ~47% estimated daily protein needs 3) Initiate Nephro-Susan @ 1 tb qd 4) Advance to 60g CCHO renal standard diet when medically feasible, pending [employer] approval 5) Follow-up with nephrology, cardiology, and pulmonology 6) Continue to monitor I&O, labs, and skin integrity Expected Outcomes/Goals: 1) patient to receive nutrition support within 7 days of NPO status 2) labs to improve 3) wound to improve 4) patient to be extubated and diet to advance 5) f/u in 2-3 days Date of Service: June 20, 2024 Billing Provider: MECHE MCKEON MD Common Visit Codes: NOT BILLABLE JEROME WHITESIDE RESIDENT June 20, 2024 14:55 MECHE MCKEON MD June 21, 2024 11:18
--- NOTE | 2024-06-20 19:07 | DVHPN2 ---
Progress Note - Dictate Date Seen: June 20, 2024 Medical Necessity Reason Pt with a Central, PICC or Fol: Yes The following are medically ne: Eagle Catheter Reason for eagle catheter: Strict I&O Subjective Patient was seen and evaluated in follow up in the ICU. Patient is intubated and sedated on ventilator. 30% FiO2. Patient unable to open eyes and visually follow however patient is able to follow commands. WBC 14.9, K 3.1, BUN 39, FAMILY READINESS SUPPORT ASSISTANT 4.71. Chest x-ray shows left basilar airspace disease, cardiomegaly. vital signs Vital Sign Date Time Temp Pulse Resp B/P (MAP) Pulse Ox O2 Delivery O2 Flow Rate FiO2 06/20/24 11:30 98.6 91 17 157/60 (92) 98 209.5 06/20/24 10:46 30 06/20/24 10:00 Mechanical Ventilator+ Total Intake and Output 06/19/24 06/19/24 06/20/24 15:00 23:00 07:00 Intake Total 175.0 ml 311.5 ml 490 ml Output Total 30 ml 10 ml Balance 175.0 ml 281.5 ml 480 ml medications Current Medications Medications Dose Ordered Sig/Eric Route Start Time Stop Time Status Last Admin Dose Admin Ondansetron HCl 4 mg Q4HP PRN IV 06/11/24 02:00 Nitroglycerin 0.4 mg Q5MINP PRN SL 06/11/24 02:00 Aspirin 81 mg DAILY PO 06/11/24 10:00 06/20/24 09:17 81 MG Atorvastatin Calcium 40 mg HS PO 06/11/24 22:00 06/19/24 22:04 40 MG Albuterol 2.5 mg Q4HPRN PRN NEB 06/11/24 02:00 06/15/24 02:08 2.5 MG Ipratropium [place] 0.5 mg Q4HPRN PRN NEB 06/11/24 02:00 06/17/24 18:35 0.5 MG Midazolam HCl 50 ml @ 1 mls/hr Q24H IV 06/11/24 02:15 06/16/24 05:17 1 MLS/HR Labetalol HCl 10 mg Q2HPRN PRN IV 06/11/24 04:30 06/16/24 01:21 10 MG Heparin Sodium (Porcine) 5,000 units Q12HR SC 06/11/24 10:00 06/20/24 09:18 5,000 UNITS Pantoprazole Sodium 40 mg DAILY IV 06/11/24 10:00 06/20/24 09:17 40 MG Ceftriaxone Sodium 50 ml @ 100 mls/hr DAILY@09 IV 06/13/24 09:00 06/20/24 09:17 100 MLS/HR Acetaminophen 650 mg Q6HP PRN GT 06/11/24 23:45 06/12/24 02:48 650 MG Nicardipine HCl 250 ml @ 50 mls/hr Q5H IV 06/13/24 14:45 UNV Enteral Nutritional Formula 1,000 ml 25ML/HR GT 06/15/24 13:30 06/20/24 10:08 1,000 ML Hydralazine HCl 10 mg Q6HPRN PRN IV 06/17/24 00:00 06/18/24 09:04 10 MG Nicardipine HCl 50 mg/Sodium Chloride 250 ml @ 25 mls/hr Q10H IV 06/18/24 12:00 06/19/24 23:11 25 MLS/HR Morphine Sulfate 2 mg Q4HPRN PRN IV 06/19/24 15:45 06/19/24 16:24 2 MG Diagnostic Test (Pha) 1 strip Q6HR 06/20/24 00:00 06/20/24 11:39 1 STRIP Insulin Human Regular Q6HR SC 06/20/24 00:00 06/20/24 11:13 2 UNITS Dextrose 50 ml UD PRN IV 06/19/24 18:15 objective GENERAL: Intubated on ventilator. EYES: PERRL, EOMI. Anicteric. HENT: Moist mucous membranes. LUNGS: Decreased breath sounds. CARDIOVASCULAR: Regular rate and rhythm. ABDOMEN: Soft, nontender and nondistended. EXTREMITIES: No edema. NEUROLOGIC: No focal neurological deficits. SKIN: Warm, dry. laboratory and microbiology Laboratory Tests 06/20/24 03:37 Test 06/20/24 03:37 Range/Units Serum Glucose 131 H 74-106 mg/dL Problem List Acute CVA. Hypertensive emergency. Questionable coronary artery disease. Moderate pericardial effusion. Acute hypoxic respiratory failure. End-stage renal disease on hemodialysis. History of T12 compression fracture. Assessment/Plan Continued all current supportive medical care. Aspirin, Lipitor. IV antibiotics as ordered. Vasopressors for hemodynamic support. Nitro SL. Morphine for pain management. Additional plan as per the hospital course. Critical care time of 45 minutes provided to include time spent evaluation of patient at bedside, when appropriate patient/family education for diagnosis, treatment plan, review of pertinent medical information and discussion of care with specialty providers and PCP. Mechanical ventilator parameters, treatment and adjustments have personally been reviewed by me and treatment plan by division head has also been reviewed. Dietary Evaluation Review Comments: 1) If patient remains NPO > 7 days, consider EN/TPN to meet at least 75% estimated needs 2) If GI route is preferred, consider Nepro @ 25 mL/hr goal rate as tolerated. EN regimen will provide 1080 kcals, 49g Pro, and 447 mL free H2O per 24 hrs. EN regimen will meet ~90% estimated daily energy needs and ~47% estimated daily protein needs 3) Initiate Nephro-Susan @ 1 tb qd 4) Advance to 60g CCHO renal standard diet when medically feasible, pending [facility] approval 5) Follow-up with nephrology, cardiology, and pulmonology 6) Continue to monitor I&O, labs, and skin integrity Expected Outcomes/Goals: 1) patient to receive nutrition support within 7 days of NPO status 2) labs to improve 3) wound to improve 4) patient to be extubated and diet to advance 5) f/u in 2-3 days Plan discussed with: SHAUN Pérez MD June 20, 2024 11:59
[2024-06-20] MEDS: METOPROLOL TARTRATE 25 MG TAB PO SCH (21:48)
--- NOTE | 2024-06-20 21:58 | DVHPN2 ---
Progress Note - Dictate Date Seen: June 20, 2024 Medical Necessity Reason Pt with a Central, PICC or Fol: Yes The following are medically ne: Eagle Catheter Reason for eagle catheter: Strict I&O Subjective Ms. Dawkins is a 63 years old female with a history of chronic kidney failure on hemodialysis, recent spine fracture, she came to the [facility] on 06/10/2024 with a chief company of back pain. I have seen and examined the patient, I have discussed with her nurse, she is intubated, but is respond to light touch, she moves the right arm, she followed her nurse earlier today, but not to me On 06/18/24, anisocoria with the right side slightly smaller noticed, but on 06/20/2024, the eyes are equally round and reactive She has been off sedation since 12:00 p.m. on 06/17/2024 Blood culture, 06/11/2024: Urinalysis, 06/11/2024: Negative Plasma alcohol, 06/10/2024: <3 ABG, 06/08/2024: Respiratory alkalosis WBC/HB/PLT/MCV, 06/11/2024: 1.7/10.5/114/89.3, 06/15/2024: 2.2/9.7/124/87.7, 06/16/2024: 0.5/10.3/136/86.5, 06/17/2024: 7.2/9.9/152/87.3 Na, 06/10/2024: 136, 06/12/2024: 133, 06/14/2024: 125, 06/15/24: 130 BUN/CR, 05/2624: 47/7.51, 06/15/2024: 31/5.74 HGB A1c, 06/11/2024: 4.3 Liver function tests, 06/10/2024: Unremarkable TG/HDL/LDL/HDL, 06/11/2024: 63/106/47/40 Echocardiogram, 06/11/2024: LVEF is normal 50-55% Rv function normal Moderate pericardial effusion with no evidence of tamponade Large left pleural effusion Chest x-ray, 06/11/2024: Lines and tubes in satisfactory position. No significant interval change Chest x-ray, 06/15/2024: 1. Mild diffuse increased prominence of the pulmonary vasculature. 2. Lines and tubes unchanged CT head, 06/10/2024: Subacute stroke involving the left frontal lobe white matter which also may involve the left temporal lobe as well can not rule out acute features CT head, neck, 06/10/2024: No significant vascular stenosis involving the head / neck. Moderate occlusion of the bilateral V4 segments vertebral arteries due to calcified and noncalcified plaques CT T-spine, 06/10/2024: No evidence of fracture in the thoracic spine CT lumbar spine, 06/10/2024: No acute fracture. Grade 1 anterolisthesis at L4-L5 with bilateral pars defects. Moderate to severe endplate degenerative changes at L4-L5, T12-L1, and L5-S1. There is severe spinal canal narrowing at L4-L5. Partially visualized moderate bilateral pleural effusions. Mild diffuse anasarca MRI head, 06/12/2024: 1. There is no acute intracranial process. 2. Chronic infarct in the superolateral left frontal lobe. (I saw another possible chronic stroke: Images 16) vital signs Vital Sign Date Time Temp Pulse Resp B/P (MAP) Pulse Ox O2 Delivery O2 Flow Rate FiO2 06/20/24 20:12 93 18 126/47 (73) 99 30 06/20/24 19:00 99.0 210.2 06/20/24 18:00 Mechanical Ventilator+ Total Intake and Output 06/19/24 06/19/24 06/20/24 15:00 23:00 07:00 Intake Total 175.0 ml 311.5 ml 490 ml Output Total 30 ml 10 ml Balance 175.0 ml 281.5 ml 480 ml medications Current Medications Medications Dose Ordered Sig/Eric Route Start Time Stop Time Status Last Admin Dose Admin Ondansetron HCl 4 mg Q4HP PRN IV 06/11/24 02:00 Nitroglycerin 0.4 mg Q5MINP PRN SL 06/11/24 02:00 Aspirin 81 mg DAILY PO 06/11/24 10:00 06/20/24 09:17 81 MG Atorvastatin Calcium 40 mg HS PO 06/11/24 22:00 06/19/24 22:04 40 MG Albuterol 2.5 mg Q4HPRN PRN NEB 06/11/24 02:00 06/15/24 02:08 2.5 MG Ipratropium [place] 0.5 mg Q4HPRN PRN NEB 06/11/24 02:00 06/17/24 18:35 0.5 MG Heparin Sodium (Porcine) 5,000 units Q12HR SC 06/11/24 10:00 06/20/24 09:18 5,000 UNITS Pantoprazole Sodium 40 mg DAILY IV 06/11/24 10:00 06/20/24 09:17 40 MG Ceftriaxone Sodium 50 ml @ 100 mls/hr DAILY@09 IV 06/13/24 09:00 06/20/24 09:17 100 MLS/HR Acetaminophen 650 mg Q6HP PRN GT 06/11/24 23:45 06/12/24 02:48 650 MG Nicardipine HCl 250 ml @ 50 mls/hr Q5H IV 06/13/24 14:45 UNV Enteral Nutritional Formula 1,000 ml 25ML/HR GT 06/15/24 13:30 06/20/24 10:08 1,000 ML Hydralazine HCl 10 mg Q6HPRN PRN IV 06/17/24 00:00 06/20/24 12:04 10 MG Nicardipine HCl 50 mg/Sodium Chloride 250 ml @ 25 mls/hr Q10H IV 06/18/24 12:00 06/20/24 14:28 25 MLS/HR Morphine Sulfate 2 mg Q4HPRN PRN IV 06/19/24 15:45 06/19/24 16:24 2 MG Diagnostic Test (Pha) 1 strip Q6HR 06/20/24 00:00 06/20/24 17:10 1 STRIP Insulin Human Regular Q6HR SC 06/20/24 00:00 06/20/24 11:13 2 UNITS Dextrose 50 ml UD PRN IV 06/19/24 18:15 Metoprolol Tartrate 25 mg BID PO 06/20/24 22:00 Nifedipine 60 mg DAILY PO 06/21/24 10:00 objective The patient is well-nourished and well-developed with no distress. The patient is intubated MENTAL STATUS: Subjective CRANIAL NERVES: Pupils are equal, round and reactive. There are corneal reflexes and doll's eyes phenomenon. No signs of facial weakness. There are gagging or coughing reflexes SENSATION: Slightly responses to strong pain stimuli. MOTOR: Normal tone in the upper and lower extremity. Normal muscle bulk. No fasciculations. Subjective REFLEXES: Deep tendon reflexes are symmetrical. No pathological reflexes. CEREBELLAR/COORDINATION: Deferred GAIT/STATION: deferred. laboratory and microbiology Laboratory Tests 06/20/24 03:37 Test 06/20/24 03:37 Range/Units Serum Glucose 131 H 74-106 mg/dL Problem List 2 chronic strokes in the left hemisphere per MRI and CT scan, asymptomatic Acute low back pain to rule out diskitis Acute respiratory failure Pancytopenia, better Hyponatremia Hypokalemia Chronic kidney failure Anisocoria noticed on 06/18/2024, uncertain clinical significance Looks improving Assessment/Plan Monitoring Supportive treatment ICU care Follow-up labs Stabilize vitals/pressor drip Respiratory support/vent management IV antibiotics Aspirin 81 mg daily Lipitor 40 mg daily DVT prophylaxis GI prophylaxis Consult hematology Infectious disease on case Cardiology on case Pulmonary on case Nephrology on case More recommendation per clinical course This medical document was created using an electronic medical record system with [employer] dictation system. Although this document has been carefully reviewed, there may still be some phonetic and typographical errors. These areas are purely typographical due to imperfections of the software programs, and do not reflect any compromise in the patient's medical care Prognosis guarded Dietary Evaluation Review Comments: 1) If patient remains NPO > 7 days, consider EN/TPN to meet at least 75% estimated needs 2) If GI route is preferred, consider Nepro @ 25 mL/hr goal rate as tolerated. EN regimen will provide 1080 kcals, 49g Pro, and 447 mL free H2O per 24 hrs. EN regimen will meet ~90% estimated daily energy needs and ~47% estimated daily protein needs 3) Initiate Nephro-Susan @ 1 tb qd 4) Advance to 60g [facility] renal standard diet when medically feasible, pending [facility] approval 5) Follow-up with nephrology, cardiology, and pulmonology 6) Continue to monitor I&O, labs, and skin integrity Expected Outcomes/Goals: 1) patient to receive nutrition support within 7 days of NPO status 2) labs to improve 3) wound to improve 4) patient to be extubated and diet to advance 5) f/u in 2-3 days Plan discussed with: Other FORD ORTA MD June 20, 2024 21:58
[2024-06-21] VITALS (109 sets, daily range): BP systolic 123–193; BP diastolic 46–78; PULSE 72–97; RESP 9–22; TEMP 97.7–99.1; O2SAT 18–99
[2024-06-21 03:59] LABS: Basophils # (auto) 0.1 10 ^3/uL (0-0.2); Basophils % (auto) 0.4 % (0.0-2.0); Eosinophils # (auto) 0 10 ^3/uL (0-0.8); Eosinophils % (auto) 0.4 % (0.0-7.0); Hematocrit 29.6 % (36.0-46.0); Hemoglobin 9.7 g/dL (12.2-16.2); Lymphocytes # (auto) 0.5 10 ^3/uL (0.4-5.4); Mean Corpuscular Hemoglobin 28.9 pg (28.0-32.0); Mean Corpuscular Hgb Conc. 32.8 g/dL (32.0-36.0); Mean Corpuscular Volume 88.1 fL (80.0-100.0); Monocytes # (auto) 0.3 10 ^3/uL (0-1.3); Monocytes % (auto) 2.7 % (0.0-12.0); Neutrophils # (auto) 10.8 10 ^3/uL (1.6-8.6); Neutrophils % (auto) 92.5 % (37.0-80.0); Platelet Count (auto) 181 10^3/uL (140-450); Red Blood Cells 3.36 10^6/uL (4.0-5.20); Red Cell Distribution Width 16.4 % (11.8-14.3); White Blood Cell 11.7 10^3/uL (4.4-10.8)
[2024-06-21 04:23] LABS: Alanine Aminotransferase 14 U/L (7-40); Albumin 3.6 g/dL (3.2-4.8); Alkaline Phosphatase 143 U/L (46-116); Anion Gap 12 (5-15); Aspartate Aminotransferase 21 U/L (13-40); BUN/Creatinine Ratio 8.7 (10.0-20.0); Blood Urea Nitrogen 49 mg/dL (9-23); Calcium 10.4 mg/dL (8.7-10.4); Carbon Dioxide 28 mmol/L (20-31); Chloride 101 mmol/L (98-107); Glucose 133 mg/dL (74-106); Potassium 3.4 mmol/L (3.5-5.1); Sodium 141 mmol/L (136-145); Total Protein 6.1 g/dL (5.7-8.2)
[2024-06-21 04:24] LABS: Bilirubin, Total 0.4 mg/dL (0.2-1.0)
--- NOTE | 2024-06-21 06:18 | DVH ---
CHEST RADIOGRAPH Indication: Intubated Technique: Single frontal view of the chest was obtained COMPARISON: XY CHEST PORTABLE on DOS: 06/20/24, XY CHEST PORTABLE on DOS: 06/19/24, XY CHEST PORTABLE on DOS: 06/18/24, XY CHEST PORTABLE on DOS: 06/17/24, XY CHEST PORTABLE on DOS: 06/16/24 FINDINGS: Lines and Tubes: Unchanged. Lungs: Grossly stable appearing mild bibasilar pulmonary airspace disease. The upper lung zones are clear. Pleura: No effusion. No pneumothorax. Cardiomediastinal contours: Unremarkable Bones: Unremarkable IMPRESSION: 1. Stable bibasilar pulmonary airspace disease. 2. Lines and tubes unchanged.
[2024-06-21 07:21] LABS: Base Excess 3.4 mmol/L (-2.0-3.0)
[2024-06-21] MEDS: SODIUM CHL 0.9% 1000 ML BAG XX ONE (07:30)
--- NOTE | 2024-06-21 09:37 | DVHPN2 ---
Progress Note - Dictate Date Seen: June 21, 2024 Medical Necessity Reason Pt with a Central, PICC or Fol: Yes The following are medically ne: Eagle Catheter Reason for eagle catheter: Strict I&O Subjective Patient is still not fully awake or following any commands for successful extubation. Withdraws to painful stimuli. vital signs Vital Sign Date Time Temp Pulse Resp B/P (MAP) Pulse Ox O2 Delivery O2 Flow Rate FiO2 06/21/24 09:34 87 179/69 06/21/24 08:15 20 97 06/21/24 08:11 30 06/21/24 08:00 Mechanical Ventilator+ 06/21/24 08:00 98.4 98.4 Total Intake and Output 06/20/24 06/20/24 06/21/24 15:00 23:00 07:00 Intake Total 237.5 ml 287 ml 268 ml Output Total 5 ml 0 ml Balance 237.5 ml 282 ml 268 ml medications Current Medications Medications Dose Ordered Sig/Eric Route Start Time Stop Time Status Last Admin Dose Admin Ondansetron HCl 4 mg Q4HP PRN IV 06/11/24 02:00 Nitroglycerin 0.4 mg Q5MINP PRN SL 06/11/24 02:00 Aspirin 81 mg DAILY PO 06/11/24 10:00 06/20/24 09:17 81 MG Atorvastatin Calcium 40 mg HS PO 06/11/24 22:00 06/20/24 21:48 40 MG Albuterol 2.5 mg Q4HPRN PRN NEB 06/11/24 02:00 06/15/24 02:08 2.5 MG Ipratropium [place] 0.5 mg Q4HPRN PRN NEB 06/11/24 02:00 06/17/24 18:35 0.5 MG Heparin Sodium (Porcine) 5,000 units Q12HR SC 06/11/24 10:00 06/20/24 21:55 5,000 UNITS Pantoprazole Sodium 40 mg DAILY IV 06/11/24 10:00 06/20/24 09:17 40 MG Ceftriaxone Sodium 50 ml @ 100 mls/hr DAILY@09 IV 06/13/24 09:00 06/20/24 09:17 100 MLS/HR Acetaminophen 650 mg Q6HP PRN GT 06/11/24 23:45 06/12/24 02:48 650 MG Nicardipine HCl 250 ml @ 50 mls/hr Q5H IV 06/13/24 14:45 UNV Enteral Nutritional Formula 1,000 ml 25ML/HR GT 06/15/24 13:30 06/20/24 10:08 1,000 ML Hydralazine HCl 10 mg Q6HPRN PRN IV 06/17/24 00:00 06/21/24 09:04 10 MG Nicardipine HCl 50 mg/Sodium Chloride 250 ml @ 25 mls/hr Q10H IV 06/18/24 12:00 06/21/24 09:34 25 MLS/HR Morphine Sulfate 2 mg Q4HPRN PRN IV 06/19/24 15:45 06/19/24 16:24 2 MG Diagnostic Test (Pha) 1 strip Q6HR 06/20/24 00:00 06/20/24 23:21 1 STRIP Insulin Human Regular Q6HR SC 06/20/24 00:00 06/20/24 11:13 2 UNITS Dextrose 50 ml UD PRN IV 06/19/24 18:15 Metoprolol Tartrate 25 mg BID PO 06/20/24 22:00 06/20/24 21:48 25 MG Nifedipine 60 mg DAILY PO 06/21/24 10:00 objective General Appearance: intubated and sedated HEENT: ET tube Respiratory: Other (Intubated on mechanical ventilator) Cardiovascular: Regular rate, Normal S1, Normal S2 Abdominal: Normal bowel sounds, Soft, No tenderness Extremities: Other (BLE pitting edema 2+) Skin: No rashes Neuro: Other (Altered non arousable) Psych/Mental Status: Other (Unable to assess) laboratory and microbiology Laboratory Tests 06/21/24 03:27 Test 06/21/24 03:27 Range/Units Serum Glucose 133 H 74-106 mg/dL Assessment/Plan Patient is a 63-year-old female presents to the hospital with: Leucopenia Vertebral Discitis subacute CVA Acute encephalopathy Acute hypoxic respiratory S/P intubation on mechanical ventilator ESRD on HD Fluid overload Hypertensive emergency Hx T12 compression fracture Recommendations: she is off sedation and are trying to extubate her reviewed CXR personally, some bibasilar infiltrates but seems stable. MRI lumbar spine done 06/19 is wo contrast which is not very ideal for infection. there is no comment about discitis or phlegmon. however, MRI in [facility] on 05/22 commented about discitis. would consider resuming and completing the course for now since she already has been on antibiotics since 05/22. tagged wbc scan may be a better study since she on HD, mri w contrast might be difficult. reviewed [facility] records in detail: She had low wbc from 03/23/2024 with 3.4 with intermittent 1.8 and she has been admitted 2-3 times and wbc is in same range. no work up done She had mri spine with on 05/22 shows hypointense T1 and hyperintense T2 at L3-L4 concerning for discitis osteomyelitis. Hyperintense T2 signal along epidural space L3-L4 for 5mm AP diameter concerning for Phlegmon. ID Dr Carlisle saw the patient and recommended IV Vancomycin for 6 weeks. There is no positive blood cultures or biopsy done. His notes on 05/23 recommended 6 weeks of IV vancomycin ( switched from ceftriaxone for low wbc). since leucopenia was present in prior admissions too, its unlikely due to Vancomycin discussed with nephrology, reviewed old labs, back in 2022 also her wbc was in 3k. unsure if she had work up done platelets were in 200 in 2023 but later its been low too recommend repeat MRI lumbar spine to evaluate epidural phlegmon in previous mri ( of note it was wo contrast) MRI showed Severe spinal canal stenosis with severe bilateral lateral recess narrowing at L3-L4. Severe bilateral neural foramina stenosis at L3-L4 with moderate right and severe left-sided neural foramina stenosis at L4-L5. Grade 1 anterolisthesis of L4 on L5. peripheral smear manual ordered Hematology consult but unavailable; patient needs work up for her chronic leucopenia, consider following up as outpt ( heme unavailable for inpatient consult) monitor cbc Continue IV Ceftriaxone for now; vancomycin on hold Monitor Vancomycin Trough, on HD 06/16, Vancomycin Random is 27 on MV Antibiotic status: Ceftriaxone IV [Started on 06/11 - Ongoing] Vancomycin IV [Started on 06/11 - 06/16] 06/11, Respiratory culture preliminary showed Normal Oropharyngeal Trish 06/11, Blood culture showed no growth 06/13, MRSA screening came back negative Review of Imagin/24, Chest x-ray showed Cardiomegaly with mild congestion. Prognosis guarded crit time 30 minutes spent, Discussed with subspeciality Thank you for consult. Dietary Evaluation Review Comments: 1) If patient remains NPO > 7 days, consider EN/TPN to meet at least 75% estimated needs 2) If GI route is preferred, consider Nepro @ 25 mL/hr goal rate as tolerated. EN regimen will provide 1080 kcals, 49g Pro, and 447 mL free H2O per 24 hrs. EN regimen will meet ~90% estimated daily energy needs and ~47% estimated daily protein needs 3) Initiate Nephro-Susan @ 1 tb qd 4) Advance to 60g CCHO renal standard diet when medically feasible, pending [facility] approval 5) Follow-up with nephrology, cardiology, and pulmonology 6) Continue to monitor I&O, labs, and skin integrity Expected Outcomes/Goals: 1) patient to receive nutrition support within 7 days of NPO status 2) labs to improve 3) wound to improve 4) patient to be extubated and diet to advance 5) f/u in 2-3 days Plan discussed with: GONZÁLEZ Vidal MD June 21, 2024 09:37
[2024-06-21] MEDS: NIFEdipine ER 30 MG TAB PO SCH ×2 (10:00→15:45)
[2024-06-21] MEDS ORDERED: DOPamine 1600MCG/ML D5W 250 ML IV SCH (11:00)
[2024-06-21] MEDS ORDERED: SODIUM CHLORIDE 0.9% 1,000 ML IV ONE (11:00)
--- NOTE | 2024-06-21 11:17 | DVHPN2 ---
Progress Note - Dictate Date Seen: June 21, 2024 Medical Necessity Reason Pt with a Central, PICC or Fol: Yes The following are medically ne: Eagle Catheter Reason for eagle catheter: Strict I&O vital signs Vital Sign Date Time Temp Pulse Resp B/P (MAP) Pulse Ox O2 Delivery O2 Flow Rate FiO2 06/21/24 10:29 89 22 148/53 (84) 98 30 06/21/24 08:00 Mechanical Ventilator+ 06/21/24 08:00 98.4 98.4 Total Intake and Output 06/20/24 06/20/24 06/21/24 15:00 23:00 07:00 Intake Total 237.5 ml 287 ml 268 ml Output Total 5 ml 0 ml Balance 237.5 ml 282 ml 268 ml medications Current Medications Medications Dose Ordered Sig/Eric Route Start Time Stop Time Status Last Admin Dose Admin Ondansetron HCl 4 mg Q4HP PRN IV 06/11/24 02:00 Nitroglycerin 0.4 mg Q5MINP PRN SL 06/11/24 02:00 Aspirin 81 mg DAILY PO 06/11/24 10:00 06/20/24 09:17 81 MG Atorvastatin Calcium 40 mg HS PO 06/11/24 22:00 06/20/24 21:48 40 MG Albuterol 2.5 mg Q4HPRN PRN NEB 06/11/24 02:00 06/15/24 02:08 2.5 MG Ipratropium [place] 0.5 mg Q4HPRN PRN NEB 06/11/24 02:00 06/17/24 18:35 0.5 MG Heparin Sodium (Porcine) 5,000 units Q12HR SC 06/11/24 10:00 06/20/24 21:55 5,000 UNITS Pantoprazole Sodium 40 mg DAILY IV 06/11/24 10:00 06/20/24 09:17 40 MG Ceftriaxone Sodium 50 ml @ 100 mls/hr DAILY@09 IV 06/13/24 09:00 06/20/24 09:17 100 MLS/HR Acetaminophen 650 mg Q6HP PRN GT 06/11/24 23:45 06/12/24 02:48 650 MG Nicardipine HCl 250 ml @ 50 mls/hr Q5H IV 06/13/24 14:45 UNV Enteral Nutritional Formula 1,000 ml 25ML/HR GT 06/15/24 13:30 06/20/24 10:08 1,000 ML Hydralazine HCl 10 mg Q6HPRN PRN IV 06/17/24 00:00 06/21/24 09:04 10 MG Nicardipine HCl 50 mg/Sodium Chloride 250 ml @ 25 mls/hr Q10H IV 06/18/24 12:00 06/21/24 09:34 25 MLS/HR Morphine Sulfate 2 mg Q4HPRN PRN IV 06/19/24 15:45 06/19/24 16:24 2 MG Diagnostic Test (Pha) 1 strip Q6HR 06/20/24 00:00 06/20/24 23:21 1 STRIP Insulin Human Regular Q6HR SC 06/20/24 00:00 06/20/24 11:13 2 UNITS Dextrose 50 ml UD PRN IV 06/19/24 18:15 Metoprolol Tartrate 25 mg BID PO 06/20/24 22:00 06/20/24 21:48 25 MG Nifedipine 60 mg DAILY PO 06/21/24 10:00 Dopamine HCl/ Dextrose 250 ml @ 15.544 mls/ hr Q16H5M IV 06/21/24 11:00 UNV laboratory and microbiology Laboratory Tests 06/21/24 03:27 Test 06/21/24 03:27 Range/Units Serum Glucose 133 H 74-106 mg/dL Assessment/Plan Impression: Acute hypoxic respiratory failure Altered mental status Acute CVA Acute encephalopathy ESRD on hemodialysis Patient seen and examined in ICU Events: On mechanical ventilation S/p intubation for airway protection PEEP 5, FiO2 30% Patient undergoing HD Mental status prohibitive remains delirious Labs and imaging reviewed CXR reviewed, demonstrates cardiomegaly with mild congestion. Devices in place. Plan: Vent support Titrate FIO2 to keep O2 saturation above 90%. Daily ABG and CXR while intubated Sedate for ventilator synchrony Sedation holiday daily check for cuff leak If patient follows commands, proceed to weaning trial Pressure support 08/23, extubate when ready extubate when ready Pressors as necessary for hemodynamic support Titrate to keep mean arterial pressure greater than 65 mmHg. HD per Nephrology Monitor renal function Monitor electrolytes. Supplement as necessary. Monitor ins and outs. Maintain euvolemia. nutrition/glycemic control GI prophylaxis. DVT prophylaxis. Critical care time 35 minutes Dietary Evaluation Review Comments: 1) If patient remains NPO > 7 days, consider EN/TPN to meet at least 75% estimated needs 2) If GI route is preferred, consider Nepro @ 25 mL/hr goal rate as tolerated. EN regimen will provide 1080 kcals, 49g Pro, and 447 mL free H2O per 24 hrs. EN regimen will meet ~90% estimated daily energy needs and ~47% estimated daily protein needs 3) Initiate Nephro-Susan @ 1 tb qd 4) Advance to 60g CCHO renal standard diet when medically feasible, pending [facility] approval 5) Follow-up with nephrology, cardiology, and pulmonology 6) Continue to monitor I&O, labs, and skin integrity Expected Outcomes/Goals: 1) patient to receive nutrition support within 7 days of NPO status 2) labs to improve 3) wound to improve 4) patient to be extubated and diet to advance 5) f/u in 2-3 days Plan discussed with: Other (Rn) MECHE STEWARD MD June 21, 2024 11:17
--- NOTE | 2024-06-21 14:18 | DVHPN2 ---
Progress Note - Dictate Date Seen: June 21, 2024 Medical Necessity Reason Pt with a Central, PICC or Fol: Yes The following are medically ne: Eagle Catheter Reason for eagle catheter: Strict I&O Subjective remains intubated vital signs Vital Sign Date Time Temp Pulse Resp B/P (MAP) Pulse Ox O2 Delivery O2 Flow Rate FiO2 06/21/24 12:19 94 146/49 06/21/24 12:03 20 98 30 06/21/24 08:00 Mechanical Ventilator+ 06/21/24 08:00 98.4 98.4 Total Intake and Output 06/20/24 06/20/24 06/21/24 15:00 23:00 07:00 Intake Total 237.5 ml 287 ml 268 ml Output Total 5 ml 0 ml Balance 237.5 ml 282 ml 268 ml medications Current Medications Medications Dose Ordered Sig/Eric Route Start Time Stop Time Status Last Admin Dose Admin Ondansetron HCl 4 mg Q4HP PRN IV 06/11/24 02:00 Nitroglycerin 0.4 mg Q5MINP PRN SL 06/11/24 02:00 Aspirin 81 mg DAILY PO 06/11/24 10:00 06/21/24 12:19 81 MG Atorvastatin Calcium 40 mg HS PO 06/11/24 22:00 06/20/24 21:48 40 MG Albuterol 2.5 mg Q4HPRN PRN NEB 06/11/24 02:00 06/15/24 02:08 2.5 MG Ipratropium [place] 0.5 mg Q4HPRN PRN NEB 06/11/24 02:00 06/17/24 18:35 0.5 MG Heparin Sodium (Porcine) 5,000 units Q12HR SC 06/11/24 10:00 06/21/24 12:22 5,000 UNITS Pantoprazole Sodium 40 mg DAILY IV 06/11/24 10:00 06/21/24 12:18 40 MG Ceftriaxone Sodium 50 ml @ 100 mls/hr DAILY@09 IV 06/13/24 09:00 06/21/24 12:16 100 MLS/HR Acetaminophen 650 mg Q6HP PRN GT 06/11/24 23:45 06/12/24 02:48 650 MG Nicardipine HCl 250 ml @ 50 mls/hr Q5H IV 06/13/24 14:45 UNV Enteral Nutritional Formula 1,000 ml 25ML/HR GT 06/15/24 13:30 06/20/24 10:08 1,000 ML Hydralazine HCl 10 mg Q6HPRN PRN IV 06/17/24 00:00 06/21/24 09:04 10 MG Nicardipine HCl 50 mg/Sodium Chloride 250 ml @ 25 mls/hr Q10H IV 06/18/24 12:00 06/21/24 09:34 25 MLS/HR Morphine Sulfate 2 mg Q4HPRN PRN IV 06/19/24 15:45 06/19/24 16:24 2 MG Diagnostic Test (Pha) 1 strip Q6HR 06/20/24 00:00 06/21/24 12:22 1 STRIP Insulin Human Regular Q6HR SC 06/20/24 00:00 06/21/24 12:21 3 UNITS Dextrose 50 ml UD PRN IV 06/19/24 18:15 Metoprolol Tartrate 25 mg BID PO 06/20/24 22:00 06/21/24 12:19 25 MG Nifedipine 60 mg DAILY PO 06/21/24 10:00 Dopamine HCl/ Dextrose 250 ml @ 15.544 mls/ hr Q16H5M IV 06/21/24 11:00 UNV objective Gen: On mechanical ventilation Lungs Diminished air entry at bases CV: RR, no pericardial rub Abdomen: soft, mildly distended, low BS Trace edema of legs laboratory and microbiology Laboratory Tests 06/21/24 03:27 Test 06/21/24 03:27 Range/Units Serum Glucose 133 H 74-106 mg/dL Assessment/Plan End-stage renal disease on HD Hypokalemia Anemia of renal disease. Respiratory failure, on mechanical ventilation for airway protection. Subacute stroke. T-spine fracture. Leukopenia Plan: scheduled for HD - Sunday HD to continue on TTS schedule on tube feeding Daily BMP ID consult appreciated ANANTH post HD as needed, goal Hb: 10-11 g/dl Dietary Evaluation Review Comments: 1) If patient remains NPO > 7 days, consider EN/TPN to meet at least 75% estimated needs 2) If GI route is preferred, consider Nepro @ 25 mL/hr goal rate as tolerated. EN regimen will provide 1080 kcals, 49g Pro, and 447 mL free H2O per 24 hrs. EN regimen will meet ~90% estimated daily energy needs and ~47% estimated daily protein needs 3) Initiate Nephro-Susan @ 1 tb qd 4) Advance to 60g CCHO renal standard diet when medically feasible, pending [facility] approval 5) Follow-up with nephrology, cardiology, and pulmonology 6) Continue to monitor I&O, labs, and skin integrity Expected Outcomes/Goals: 1) patient to receive nutrition support within 7 days of NPO status 2) labs to improve 3) wound to improve 4) patient to be extubated and diet to advance 5) f/u in 2-3 days Plan discussed with: Other ILANA PATINO MD June 21, 2024 14:18
--- NOTE | 2024-06-21 15:29 | DVHPN2 ---
Progress Note - Dictate Date Seen: June 21, 2024 Medical Necessity Reason Pt with a Central, PICC or Fol: Yes The following are medically ne: Eagle Catheter Reason for eagle catheter: Strict I&O Subjective Patient was seen and evaluated in follow up in the ICU. Patient is intubated and sedated on ventilator. 30% FiO2. WBC 11.7, HGB 9.7, HCT 29.6, K 3.4, BUN 49, [employer] 5.66. Chest x-ray showed stable bibasilar pulmonary airspace disease. vital signs Vital Sign Date Time Temp Pulse Resp B/P (MAP) Pulse Ox O2 Delivery O2 Flow Rate FiO2 06/21/24 10:29 89 22 148/53 (84) 98 30 06/21/24 08:00 Mechanical Ventilator+ 06/21/24 08:00 98.4 98.4 Total Intake and Output 06/20/24 06/20/24 06/21/24 14:59 22:59 06:59 Intake Total 237.5 ml 312 ml 268 ml Output Total 5 ml 0 ml Balance 237.5 ml 307 ml 268 ml medications Current Medications Medications Dose Ordered Sig/Eric Route Start Time Stop Time Status Last Admin Dose Admin Ondansetron HCl 4 mg Q4HP PRN IV 06/11/24 02:00 Nitroglycerin 0.4 mg Q5MINP PRN SL 06/11/24 02:00 Aspirin 81 mg DAILY PO 06/11/24 10:00 06/20/24 09:17 81 MG Atorvastatin Calcium 40 mg HS PO 06/11/24 22:00 06/20/24 21:48 40 MG Albuterol 2.5 mg Q4HPRN PRN NEB 06/11/24 02:00 06/15/24 02:08 2.5 MG Ipratropium [place] 0.5 mg Q4HPRN PRN NEB 06/11/24 02:00 06/17/24 18:35 0.5 MG Heparin Sodium (Porcine) 5,000 units Q12HR SC 06/11/24 10:00 06/20/24 21:55 5,000 UNITS Pantoprazole Sodium 40 mg DAILY IV 06/11/24 10:00 06/20/24 09:17 40 MG Ceftriaxone Sodium 50 ml @ 100 mls/hr DAILY@09 IV 06/13/24 09:00 06/20/24 09:17 100 MLS/HR Acetaminophen 650 mg Q6HP PRN GT 06/11/24 23:45 06/12/24 02:48 650 MG Nicardipine HCl 250 ml @ 50 mls/hr Q5H IV 06/13/24 14:45 UNV Enteral Nutritional Formula 1,000 ml 25ML/HR GT 06/15/24 13:30 06/20/24 10:08 1,000 ML Hydralazine HCl 10 mg Q6HPRN PRN IV 06/17/24 00:00 06/21/24 09:04 10 MG Nicardipine HCl 50 mg/Sodium Chloride 250 ml @ 25 mls/hr Q10H IV 06/18/24 12:00 06/21/24 09:34 25 MLS/HR Morphine Sulfate 2 mg Q4HPRN PRN IV 06/19/24 15:45 06/19/24 16:24 2 MG Diagnostic Test (Pha) 1 strip Q6HR 06/20/24 00:00 06/20/24 23:21 1 STRIP Insulin Human Regular Q6HR SC 06/20/24 00:00 06/20/24 11:13 2 UNITS Dextrose 50 ml UD PRN IV 06/19/24 18:15 Metoprolol Tartrate 25 mg BID PO 06/20/24 22:00 06/20/24 21:48 25 MG Nifedipine 60 mg DAILY PO 06/21/24 10:00 Dopamine HCl/ Dextrose 250 ml @ 15.544 mls/ hr Q16H5M IV 06/21/24 11:00 UNV objective GENERAL: Intubated on ventilator. EYES: PERRL, EOMI. Anicteric. HENT: Moist mucous membranes. LUNGS: Decreased breath sounds. CARDIOVASCULAR: Regular rate and rhythm. ABDOMEN: Soft, nontender and nondistended. EXTREMITIES: No edema. NEUROLOGIC: No focal neurological deficits. SKIN: Warm, dry. laboratory and microbiology Laboratory Tests 06/21/24 03:27 Test 06/21/24 03:27 Range/Units Serum Glucose 133 H 74-106 mg/dL Problem List Acute CVA. Hypertensive emergency. Questionable coronary artery disease. Moderate pericardial effusion. Acute hypoxic respiratory failure. End-stage renal disease on hemodialysis. History of T12 compression fracture. Assessment/Plan Continued all current supportive medical care. Aspirin, Lipitor. IV antibiotics as ordered. Vasopressors for hemodynamic support. Nitro SL. Morphine for pain management. Additional plan as per the hospital course. Critical care time of 45 minutes provided to include time spent evaluation of patient at bedside, when appropriate patient/family education for diagnosis, treatment plan, review of pertinent medical information and discussion of care with specialty providers and PCP. Mechanical ventilator parameters, treatment and adjustments have personally been reviewed by me and treatment plan by customs compliance manager has also been reviewed. Dietary Evaluation Review Comments: 1) If patient remains NPO > 7 days, consider EN/TPN to meet at least 75% estimated needs 2) If GI route is preferred, consider Nepro @ 25 mL/hr goal rate as tolerated. EN regimen will provide 1080 kcals, 49g Pro, and 447 mL free H2O per 24 hrs. EN regimen will meet ~90% estimated daily energy needs and ~47% estimated daily protein needs 3) Initiate Nephro-Susan @ 1 tb qd 4) Advance to 60g CCHO renal standard diet when medically feasible, pending [employer] approval 5) Follow-up with nephrology, cardiology, and pulmonology 6) Continue to monitor I&O, labs, and skin integrity Expected Outcomes/Goals: 1) patient to receive nutrition support within 7 days of NPO status 2) labs to improve 3) wound to improve 4) patient to be extubated and diet to advance 5) f/u in 2-3 days Plan discussed with: SHAUN Pérez MD June 21, 2024 11:52
--- NOTE | 2024-06-21 15:34 | DVHPN2 ---
Progress Note - Dictate Date Seen: June 21, 2024 Medical Necessity Reason Pt with a Central, PICC or Fol: Yes The following are medically ne: Eagle Catheter Reason for eagle catheter: Strict I&O Subjective Discussed with the nurse in the ICU. Patient is still not fully awake or following any commands for successful extubation. Withdraws to painful stimuli. vital signs Vital Sign Date Time Temp Pulse Resp B/P (MAP) Pulse Ox O2 Delivery O2 Flow Rate FiO2 06/21/24 14:21 82 19 130/50 (76) 98 30 06/21/24 12:00 98.7 98.7 06/21/24 08:00 Mechanical Ventilator+ Total Intake and Output 06/20/24 06/20/24 06/21/24 15:00 23:00 07:00 Intake Total 237.5 ml 287 ml 268 ml Output Total 5 ml 0 ml Balance 237.5 ml 282 ml 268 ml medications Current Medications Medications Dose Ordered Sig/Eric Route Start Time Stop Time Status Last Admin Dose Admin Ondansetron HCl 4 mg Q4HP PRN IV 06/11/24 02:00 Nitroglycerin 0.4 mg Q5MINP PRN SL 06/11/24 02:00 Aspirin 81 mg DAILY PO 06/11/24 10:00 06/21/24 12:19 81 MG Atorvastatin Calcium 40 mg HS PO 06/11/24 22:00 06/20/24 21:48 40 MG Albuterol 2.5 mg Q4HPRN PRN NEB 06/11/24 02:00 06/21/24 14:21 2.5 MG Ipratropium [place] 0.5 mg Q4HPRN PRN NEB 06/11/24 02:00 06/21/24 14:21 0.5 MG Heparin Sodium (Porcine) 5,000 units Q12HR SC 06/11/24 10:00 06/21/24 12:22 5,000 UNITS Pantoprazole Sodium 40 mg DAILY IV 06/11/24 10:00 06/21/24 12:18 40 MG Ceftriaxone Sodium 50 ml @ 100 mls/hr DAILY@09 IV 06/13/24 09:00 06/21/24 12:16 100 MLS/HR Acetaminophen 650 mg Q6HP PRN GT 06/11/24 23:45 06/12/24 02:48 650 MG Nicardipine HCl 250 ml @ 50 mls/hr Q5H IV 06/13/24 14:45 UNV Enteral Nutritional Formula 1,000 ml 25ML/HR GT 06/15/24 13:30 06/20/24 10:08 1,000 ML Hydralazine HCl 10 mg Q6HPRN PRN IV 06/17/24 00:00 06/21/24 09:04 10 MG Nicardipine HCl 50 mg/Sodium Chloride 250 ml @ 25 mls/hr Q10H IV 06/18/24 12:00 06/21/24 09:34 25 MLS/HR Morphine Sulfate 2 mg Q4HPRN PRN IV 06/19/24 15:45 06/19/24 16:24 2 MG Diagnostic Test (Pha) 1 strip Q6HR 06/20/24 00:00 06/21/24 12:22 1 STRIP Insulin Human Regular Q6HR SC 06/20/24 00:00 06/21/24 12:21 3 UNITS Dextrose 50 ml UD PRN IV 06/19/24 18:15 Metoprolol Tartrate 25 mg BID PO 06/20/24 22:00 06/21/24 12:19 25 MG Nifedipine 60 mg DAILY PO 06/21/24 10:00 Dopamine HCl/ Dextrose 250 ml @ 15.544 mls/ hr Q16H5M IV 06/21/24 11:00 UNV objective Off sedation comfortable in bed on ventilator without distress. HEENT pupils equal pinpoint round react to light. Neck supple. Heart regular rate and rhythm S1-S2. Lungs fair air movement without wheezing. Abdomen soft positive bowel sounds. Extremities improved edema. laboratory and microbiology Laboratory Tests 06/21/24 03:27 Test 06/21/24 03:27 Range/Units Serum Glucose 133 H 74-106 mg/dL Assessment/Plan 1. Acute hypoxic respiratory failure requiring intubation with mechanical ventilation secondary to metabolic encephalopathy 2. 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 Hypertensive emergency with the end-organ involvement , off the nicardipine drip 5. End-stage renal disease on hemodialysis received hemodialysis on06/14 6. Coronary artery disease Her MRI of the lumbar spine does not show any evidence of diskitis or osteomyelitis/infection. Apparently her blood pressure went up with the dialysis today therefore nurse start her back on nicardipine drip. She was advised not to withhold oral blood pressure medications. Continue oral meds and titrate off the nicardipine drip. Meantime given patient is still not following any commands on fully awake, we will do a follow up head CT without contrast today as well as check ammonia level. MRI of the brain was done on 06/12/2024. Otherwise continue rest of supportive care and treatment. Further clinical management per clinical course. Overall prognosis remains poor. Discussed with the nurse at bedside. Dietary Evaluation Review Comments: 1) If patient remains NPO > 7 days, consider EN/TPN to meet at least 75% estimated needs 2) If GI route is preferred, consider Nepro @ 25 mL/hr goal rate as tolerated. EN regimen will provide 1080 kcals, 49g Pro, and 447 mL free H2O per 24 hrs. EN regimen will meet ~90% estimated daily energy needs and ~47% estimated daily protein needs 3) Initiate Nephro-Susan @ 1 tb qd 4) Advance to 60g CCHO renal standard diet when medically feasible, pending [facility] approval 5) Follow-up with nephrology, cardiology, and pulmonology 6) Continue to monitor I&O, labs, and skin integrity Expected Outcomes/Goals: 1) patient to receive nutrition support within 7 days of NPO status 2) labs to improve 3) wound to improve 4) patient to be extubated and diet to advance 5) f/u in 2-3 days Plan discussed with: BRIANNE Gilbert MD June 21, 2024 15:34
--- NOTE | 2024-06-21 16:28 | DVH ---
EXAM: CT HEAD WITHOUT CONTRAST INDICATION: ALOC TECHNIQUE: CT of the head without intravenous contrast. Radiation Dose Information: CT Dose: CTDI volume is 53.46 mGy. Dose-length product is 946.76 mGy*cm The dose indicators for CT are the volume Computed Tomography (CT) Dose Index (CTDIvol) and the Dose Length Product (DLP), and are measured in units of mGy and mGy-cm, respectively. These indicators are not patient dose, but values generated from the CT scanner acquisition factors. The report includes radiation exposure data for exposures received during this examination. COMPARISON: CT HEAD WITHOUT CONTRAST on DOS: 06/10/24 FINDINGS: There is no evidence of acute intracranial hemorrhage, extra-axial collection, mass effect, midline s hift, herniation or hydrocephalus. Area of decreased attenuation in the cortex and deep white matter mid left parietal lobe consistent w ith old infarct. Not significantly changed from 06/10/2024. The ventricles, sulci and cisterns are age appropriate. The shen-white differentiation is intact. Patchy periventricular and subcortical white matter hypoattenuation is nonspecific but may be related to small vessel ischemic disease. The visualized paranasal sinuses and mastoid air cells are clear. The surrounding soft tissues and osseous structures are unremarkable. IMPRESSION: 1. No acute intracranial hemorrhage 2. Stable left parietal infarct unchanged from 06/10/2024.
--- NOTE | 2024-06-21 20:33 | DVH ---
CHEST RADIOGRAPH Indication: INTUBATED Technique: Single frontal view of the chest was obtained Comparison: XY CHEST PORTABLE on DOS: 06/21/24, XY CHEST PORTABLE on DOS: 06/20/24, XY CHEST PORTABLE on DOS: 06/19/24 FINDINGS: Hemodialysis catheter in place from the right internal jugular vein with the tip in the right atrium. Endotracheal tube in place 3.7 cm above the sandra. Enteric tube below the left diaphragm in the sto mach Lungs: No focal consolidation. Pleura: No effusion. No pneumothorax. Cardiomediastinal contours: Unremarkable Bones: No acute osseous abnormality. IMPRESSION: 1. Endotracheal tube 3.7 cm above the sandra 2. Hemodialysis catheter in place with the tip in the right atrium from the right internal jugular ve in. 3. Enteric tube below the left diaphragm in the stomach
[2024-06-21] MEDS: EPOETIN ALFA-EPBX 4,000 UNIT/ML VIAL SC ONE (21:57)
[2024-06-22] VITALS (106 sets, daily range): BP systolic 122–181; BP diastolic 42–98; PULSE 60–95; RESP 9–24; TEMP 97.2–99.1; O2SAT 95–100
[2024-06-22 03:39] LABS: Basophils # (auto) 0 10 ^3/uL (0-0.2); Basophils % (auto) 0.1 % (0.0-2.0); Eosinophils # (auto) 0.2 10 ^3/uL (0-0.8); Eosinophils % (auto) 1.7 % (0.0-7.0); Hematocrit 30.2 % (36.0-46.0); Hemoglobin 9.9 g/dL (12.2-16.2); Lymphocytes # (auto) 0.5 10 ^3/uL (0.4-5.4); Lymphocytes % (auto) 5.4 % (10.0-50.0); Mean Corpuscular Hgb Conc. 32.8 g/dL (32.0-36.0); Mean Corpuscular Volume 88.7 fL (80.0-100.0); Monocytes # (auto) 0.4 10 ^3/uL (0-1.3); Monocytes % (auto) 4.9 % (0.0-12.0); Neutrophils % (auto) 87.9 % (37.0-80.0); Platelet Count (auto) 143 10^3/uL (140-450); Red Blood Cells 3.41 10^6/uL (4.0-5.20); Red Cell Distribution Width 16.8 % (11.8-14.3); White Blood Cell 9.1 10^3/uL (4.4-10.8)
[2024-06-22 03:46] LABS: Anion Gap 10 (5-15); Carbon Dioxide 29 mmol/L (20-31); Chloride 103 mmol/L (98-107); Sodium 142 mmol/L (136-145)
[2024-06-22 03:47] LABS: Calcium 10.3 mg/dL (8.7-10.4)
[2024-06-22 03:51] LABS: Glucose 105 mg/dL (74-106)
[2024-06-22 03:52] LABS: BUN/Creatinine Ratio 7.1 (10.0-20.0); Blood Urea Nitrogen 30 mg/dL (9-23); Potassium 3.4 mmol/L (3.5-5.1)
[2024-06-22 08:07] LABS: Base Excess 4.7 mmol/L (-2.0-3.0)
--- NOTE | 2024-06-22 08:24 | DVHPN2 ---
Progress Note - Dictate Date Seen: June 22, 2024 Medical Necessity Reason Pt with a Central, PICC or Fol: Yes The following are medically ne: Eagle Catheter Reason for eagle catheter: Strict I&O Subjective Patient is intubated and sedated on ventilator. 30% FiO2. Patient is unable to follow simple commands. vital signs Vital Sign Date Time Temp Pulse Resp B/P (MAP) Pulse Ox O2 Delivery O2 Flow Rate FiO2 06/22/24 07:30 99.1 86 11 147/59 (88) 96 210.4 06/22/24 07:05 30 06/22/24 06:00 Mechanical Ventilator+ Total Intake and Output 06/21/24 06/21/24 06/22/24 15:00 23:00 07:00 Intake Total 387.5 ml 326 ml 327.5 ml Output Total 0 ml Balance 387.5 ml 326 ml 327.5 ml medications Current Medications Medications Dose Ordered Sig/Eric Route Start Time Stop Time Status Last Admin Dose Admin Ondansetron HCl 4 mg Q4HP PRN IV 06/11/24 02:00 Nitroglycerin 0.4 mg Q5MINP PRN SL 06/11/24 02:00 Aspirin 81 mg DAILY PO 06/11/24 10:00 06/21/24 12:19 81 MG Atorvastatin Calcium 40 mg HS PO 06/11/24 22:00 06/21/24 21:57 40 MG Albuterol 2.5 mg Q4HPRN PRN NEB 06/11/24 02:00 06/21/24 14:21 2.5 MG Ipratropium [place] 0.5 mg Q4HPRN PRN NEB 06/11/24 02:00 06/21/24 14:21 0.5 MG Heparin Sodium (Porcine) 5,000 units Q12HR SC 06/11/24 10:00 06/21/24 22:01 5,000 UNITS Pantoprazole Sodium 40 mg DAILY IV 06/11/24 10:00 06/21/24 12:18 40 MG Ceftriaxone Sodium 50 ml @ 100 mls/hr DAILY@09 IV 06/13/24 09:00 06/21/24 12:16 100 MLS/HR Acetaminophen 650 mg Q6HP PRN GT 06/11/24 23:45 06/12/24 02:48 650 MG Nicardipine HCl 250 ml @ 50 mls/hr Q5H IV 06/13/24 14:45 UNV Enteral Nutritional Formula 1,000 ml 25ML/HR GT 06/15/24 13:30 06/20/24 10:08 1,000 ML Hydralazine HCl 10 mg Q6HPRN PRN IV 06/17/24 00:00 06/22/24 03:59 10 MG Nicardipine HCl 50 mg/Sodium Chloride 250 ml @ 25 mls/hr Q10H IV 06/18/24 12:00 06/22/24 07:19 50 MLS/HR Morphine Sulfate 2 mg Q4HPRN PRN IV 06/19/24 15:45 06/19/24 16:24 2 MG Diagnostic Test (Pha) 1 strip Q6HR 06/20/24 00:00 06/22/24 06:00 1 STRIP Insulin Human Regular Q6HR SC 06/20/24 00:00 06/21/24 18:03 2 UNITS Dextrose 50 ml UD PRN IV 06/19/24 18:15 Metoprolol Tartrate 25 mg BID PO 06/20/24 22:00 06/21/24 21:57 25 MG Dopamine HCl/ Dextrose 250 ml @ 15.544 mls/ hr Q16H5M IV 06/21/24 11:00 UNV Nifedipine 90 mg DAILY PO 06/21/24 15:30 06/21/24 15:45 90 MG objective General Appearance: intubated and sedated HEENT: ET tube Respiratory: Other (Intubated on mechanical ventilator) Cardiovascular: Regular rate, Normal S1, Normal S2 Abdominal: Normal bowel sounds, Soft, No tenderness Extremities: Other (BLE pitting edema 2+) Skin: No rashes Neuro: Other (Altered non arousable) Psych/Mental Status: Other (Unable to assess) laboratory and microbiology Laboratory Tests 06/22/24 03:00 Test 06/22/24 03:00 Range/Units Serum Glucose 105 74-106 mg/dL Assessment/Plan Patient is a 63-year-old female presents to the hospital with: Leucopenia resolved Vertebral Discitis subacute CVA Acute encephalopathy Acute hypoxic respiratory S/P intubation on mechanical ventilator ESRD on HD Fluid overload Hypertensive emergency Hx T12 compression fracture Recommendations: WBC normal today she is off sedation and are trying to extubate her; failed CPAP trial reviewed CXR personally, some bibasilar infiltrates but seems stable. MRI lumbar spine done 06/19 is wo contrast which is not very ideal for infection. there is no comment about discitis or phlegmon. however, MRI in [facility] on 05/22 commented about discitis. would consider resuming and completing the course for now since she already has been on antibiotics since 05/22. tagged wbc scan may be a better study since she on HD, mri w contrast might be difficult. reviewed [facility] records in detail: She had low wbc from 03/23/2024 with 3.4 with intermittent 1.8 and she has been admitted 2-3 times and wbc is in same range. no work up done She had mri spine with on 05/22 shows hypointense T1 and hyperintense T2 at L3-L4 concerning for discitis osteomyelitis. Hyperintense T2 signal along epidural space L3-L4 for 5mm AP diameter concerning for Phlegmon. ID Dr Carlisle saw the patient and recommended IV Vancomycin for 6 weeks. There is no positive blood cultures or biopsy done. His notes on 05/23 recommended 6 weeks of IV vancomycin ( switched from ceftriaxone for low wbc). since leucopenia was present in prior admissions too, its unlikely due to Vancomycin discussed with nephrology, reviewed old labs, back in 2022 also her wbc was in 3k. unsure if she had work up done platelets were in 200 in 2023 but later its been low too recommended repeat MRI lumbar spine to evaluate epidural phlegmon in previous mri ( of note it was wo contrast) MRI showed Severe spinal canal stenosis with severe bilateral lateral recess narrowing at L3-L4. Severe bilateral neural foramina stenosis at L3-L4 with moderate right and severe left-sided neural foramina stenosis at L4-L5. Grade 1 anterolisthesis of L4 on L5. peripheral smear manual ordered Hematology consult but unavailable; patient needs work up for her chronic leucopenia, consider following up as outpt ( heme unavailable for inpatient consult) monitor cbc Continue IV Ceftriaxone for now; vancomycin on hold Monitor Vancomycin Trough, on HD 06/16, Vancomycin Random is 27 on MV Antibiotic status: Ceftriaxone IV [Started on 06/11 - Ongoing] Vancomycin IV [Started on 06/11 - 06/16] 06/11, Respiratory culture preliminary showed Normal Oropharyngeal Trish 06/11, Blood culture showed no growth 06/13, MRSA screening came back negative Review of Imagin/24, Chest x-ray showed Cardiomegaly with mild congestion. Prognosis guarded crit time 30 minutes spent, Thank you for consult. Dietary Evaluation Review Comments: 1) If patient remains NPO > 7 days, consider EN/TPN to meet at least 75% estimated needs 2) If GI route is preferred, consider Nepro @ 25 mL/hr goal rate as tolerated. EN regimen will provide 1080 kcals, 49g Pro, and 447 mL free H2O per 24 hrs. EN regimen will meet ~90% estimated daily energy needs and ~47% estimated daily protein needs 3) Initiate Nephro-Susan @ 1 tb qd 4) Advance to 60g [facility] renal standard diet when medically feasible, pending [facility] approval 5) Follow-up with nephrology, cardiology, and pulmonology 6) Continue to monitor I&O, labs, and skin integrity Expected Outcomes/Goals: 1) patient to receive nutrition support within 7 days of NPO status 2) labs to improve 3) wound to improve 4) patient to be extubated and diet to advance 5) f/u in 2-3 days Plan discussed with: GONZÁLEZ Vidal MD June 22, 2024 08:24
--- NOTE | 2024-06-22 11:14 | DVH ---
XY CHEST XRAY 1 VIEW, HISTORY: INTUBATED COMPARISON: XY CHEST PORTABLE on DOS: 06/21/24, XY CHEST PORTABLE on DOS: 06/21/24, XY CHEST PORTABLE on DOS: 06/20/24 XY CHEST PORTABLE on DOS: 06/21/24, XY CHEST PORTABLE on DOS: 06/21/24, XY CHEST PORTABLE on DOS: 06/20/24 TECHNICAL DATA: 1 view of the chest was obtained. FINDINGS: Lines and tubes: There is stable positioning of the lines and tubes. Cardiomediastinal silhouette: Enlarged Pulmonary vasculature: Prominent Lung expansion: normal Lung airspace: normal Lung interstitium: normal Pleura: normal Pneumothorax: no Bones: Unremarkable Other: no IMPRESSION: Similar lung aeration with stable lines and tubes.
--- NOTE | 2024-06-22 12:54 | DVHPN2 ---
Progress Note - Dictate Date Seen: June 22, 2024 Medical Necessity Reason Pt with a Central, PICC or Fol: Yes The following are medically ne: Eagle Catheter Reason for eagle catheter: Strict I&O Subjective remains intubated vital signs Vital Sign Date Time Temp Pulse Resp B/P (MAP) Pulse Ox O2 Delivery O2 Flow Rate FiO2 06/22/24 12:27 85 21 147/54 (85) 98 30 06/22/24 10:15 99.0 210.2 06/22/24 10:00 Mechanical Ventilator+ Total Intake and Output 06/21/24 06/21/24 06/22/24 15:00 23:00 07:00 Intake Total 387.5 ml 326 ml 365.0 ml Output Total 0 ml Balance 387.5 ml 326 ml 365.0 ml medications Current Medications Medications Dose Ordered Sig/Eric Route Start Time Stop Time Status Last Admin Dose Admin Ondansetron HCl 4 mg Q4HP PRN IV 06/11/24 02:00 Nitroglycerin 0.4 mg Q5MINP PRN SL 06/11/24 02:00 Aspirin 81 mg DAILY PO 06/11/24 10:00 06/22/24 08:25 81 MG Atorvastatin Calcium 40 mg HS PO 06/11/24 22:00 06/21/24 21:57 40 MG Albuterol 2.5 mg Q4HPRN PRN NEB 06/11/24 02:00 06/21/24 14:21 2.5 MG Ipratropium [place] 0.5 mg Q4HPRN PRN NEB 06/11/24 02:00 06/21/24 14:21 0.5 MG Heparin Sodium (Porcine) 5,000 units Q12HR SC 06/11/24 10:00 06/22/24 08:29 5,000 UNITS Pantoprazole Sodium 40 mg DAILY IV 06/11/24 10:00 06/22/24 08:24 40 MG Ceftriaxone Sodium 50 ml @ 100 mls/hr DAILY@09 IV 06/13/24 09:00 06/22/24 08:24 100 MLS/HR Acetaminophen 650 mg Q6HP PRN GT 06/11/24 23:45 06/12/24 02:48 650 MG Nicardipine HCl 250 ml @ 50 mls/hr Q5H IV 06/13/24 14:45 UNV Enteral Nutritional Formula 1,000 ml 25ML/HR GT 06/15/24 13:30 06/20/24 10:08 1,000 ML Hydralazine HCl 10 mg Q6HPRN PRN IV 06/17/24 00:00 06/22/24 03:59 10 MG Nicardipine HCl 50 mg/Sodium Chloride 250 ml @ 25 mls/hr Q10H IV 06/18/24 12:00 06/22/24 07:19 50 MLS/HR Morphine Sulfate 2 mg Q4HPRN PRN IV 06/19/24 15:45 06/19/24 16:24 2 MG Diagnostic Test (Pha) 1 strip Q6HR 06/20/24 00:00 06/22/24 06:00 1 STRIP Insulin Human Regular Q6HR SC 06/20/24 00:00 06/21/24 18:03 2 UNITS Dextrose 50 ml UD PRN IV 06/19/24 18:15 Metoprolol Tartrate 25 mg BID PO 06/20/24 22:00 06/22/24 08:26 25 MG Dopamine HCl/ Dextrose 250 ml @ 15.544 mls/ hr Q16H5M IV 06/21/24 11:00 UNV Nifedipine 90 mg DAILY PO 06/21/24 15:30 06/22/24 08:25 90 MG objective Gen: On mechanical ventilation Lungs Diminished air entry at bases CV: RR, no pericardial rub Abdomen: soft, mildly distended, low BS Trace edema of legs laboratory and microbiology Laboratory Tests 06/22/24 03:00 Test 06/22/24 03:00 Range/Units Serum Glucose 105 74-106 mg/dL Assessment/Plan End-stage renal disease on HD Hypokalemia Anemia of renal disease. Acute hypoxic Respiratory failure, on mechanical ventilation HTN urgency Subacute stroke. T-spine fracture. Leukopenia Plan: s/p HD Sunday Next HD on Sunday HD to continue on TTS schedule on tube feeding Daily BMP on Cardene drip ID consult appreciated Continue IV antibiotics ANANTH post HD as needed, goal Hb: 10-11 g/dl Dietary Evaluation Review Comments: 1) If patient remains NPO > 7 days, consider EN/TPN to meet at least 75% estimated needs 2) If GI route is preferred, consider Nepro @ 25 mL/hr goal rate as tolerated. EN regimen will provide 1080 kcals, 49g Pro, and 447 mL free H2O per 24 hrs. EN regimen will meet ~90% estimated daily energy needs and ~47% estimated daily protein needs 3) Initiate Nephro-Susan @ 1 tb qd 4) Advance to 60g [facility] renal standard diet when medically feasible, pending [facility] approval 5) Follow-up with nephrology, cardiology, and pulmonology 6) Continue to monitor I&O, labs, and skin integrity Expected Outcomes/Goals: 1) patient to receive nutrition support within 7 days of NPO status 2) labs to improve 3) wound to improve 4) patient to be extubated and diet to advance 5) f/u in 2-3 days Plan discussed with: Other ILANA PATINO MD June 22, 2024 12:54
--- NOTE | 2024-06-22 13:25 | DVHPN2 ---
Progress Note - Dictate Date Seen: June 22, 2024 Medical Necessity Reason Pt with a Central, PICC or Fol: Yes The following are medically ne: Eagle Catheter Reason for eagle catheter: Strict I&O vital signs Vital Sign Date Time Temp Pulse Resp B/P (MAP) Pulse Ox O2 Delivery O2 Flow Rate FiO2 06/22/24 12:27 85 21 147/54 (85) 98 30 06/22/24 12:00 Mechanical Ventilator+ 06/22/24 10:15 99.0 210.2 Total Intake and Output 06/21/24 06/21/24 06/22/24 15:00 23:00 07:00 Intake Total 387.5 ml 326 ml 365.0 ml Output Total 0 ml Balance 387.5 ml 326 ml 365.0 ml medications Current Medications Medications Dose Ordered Sig/Eric Route Start Time Stop Time Status Last Admin Dose Admin Ondansetron HCl 4 mg Q4HP PRN IV 06/11/24 02:00 Nitroglycerin 0.4 mg Q5MINP PRN SL 06/11/24 02:00 Aspirin 81 mg DAILY PO 06/11/24 10:00 06/22/24 08:25 81 MG Atorvastatin Calcium 40 mg HS PO 06/11/24 22:00 06/21/24 21:57 40 MG Albuterol 2.5 mg Q4HPRN PRN NEB 06/11/24 02:00 06/21/24 14:21 2.5 MG Ipratropium [place] 0.5 mg Q4HPRN PRN NEB 06/11/24 02:00 06/21/24 14:21 0.5 MG Heparin Sodium (Porcine) 5,000 units Q12HR SC 06/11/24 10:00 06/22/24 08:29 5,000 UNITS Pantoprazole Sodium 40 mg DAILY IV 06/11/24 10:00 06/22/24 08:24 40 MG Ceftriaxone Sodium 50 ml @ 100 mls/hr DAILY@09 IV 06/13/24 09:00 06/22/24 08:24 100 MLS/HR Acetaminophen 650 mg Q6HP PRN GT 06/11/24 23:45 06/12/24 02:48 650 MG Nicardipine HCl 250 ml @ 50 mls/hr Q5H IV 06/13/24 14:45 UNV Enteral Nutritional Formula 1,000 ml 25ML/HR GT 06/15/24 13:30 06/20/24 10:08 1,000 ML Hydralazine HCl 10 mg Q6HPRN PRN IV 06/17/24 00:00 06/22/24 03:59 10 MG Nicardipine HCl 50 mg/Sodium Chloride 250 ml @ 25 mls/hr Q10H IV 06/18/24 12:00 06/22/24 07:19 50 MLS/HR Morphine Sulfate 2 mg Q4HPRN PRN IV 06/19/24 15:45 06/19/24 16:24 2 MG Diagnostic Test (Pha) 1 strip Q6HR 06/20/24 00:00 06/22/24 06:00 1 STRIP Insulin Human Regular Q6HR SC 06/20/24 00:00 06/21/24 18:03 2 UNITS Dextrose 50 ml UD PRN IV 06/19/24 18:15 Metoprolol Tartrate 25 mg BID PO 06/20/24 22:00 06/22/24 08:26 25 MG Dopamine HCl/ Dextrose 250 ml @ 15.544 mls/ hr Q16H5M IV 06/21/24 11:00 UNV Nifedipine 90 mg DAILY PO 06/21/24 15:30 06/22/24 08:25 90 MG laboratory and microbiology Laboratory Tests 06/22/24 03:00 Test 06/22/24 03:00 Range/Units Serum Glucose 105 74-106 mg/dL Assessment/Plan Impression: Acute hypoxic respiratory failure Altered mental status Acute CVA Acute encephalopathy ESRD on hemodialysis Patient seen and examined in ICU Events: On mechanical ventilation S/p intubation for airway protection PEEP 5, FiO2 30% Mentation prohibitive Patient undergoing HD Mental status prohibitive remains delirious Labs and imaging reviewed Plan: Vent support Titrate FIO2 to keep O2 saturation above 90%. Daily ABG and CXR while intubated Sedate for ventilator synchrony Sedation holiday daily check for cuff leak If patient follows commands, proceed to weaning trial Pressure support 08/23, extubate when ready extubate when ready Pressors as necessary for hemodynamic support Titrate to keep mean arterial pressure greater than 65 mmHg. HD per Nephrology Monitor renal function Monitor electrolytes. Supplement as necessary. Monitor ins and outs. Maintain euvolemia. nutrition/glycemic control GI prophylaxis. DVT prophylaxis. Critical care time 35 minutes Dietary Evaluation Review Comments: 1) If patient remains NPO > 7 days, consider EN/TPN to meet at least 75% estimated needs 2) If GI route is preferred, consider Nepro @ 25 mL/hr goal rate as tolerated. EN regimen will provide 1080 kcals, 49g Pro, and 447 mL free H2O per 24 hrs. EN regimen will meet ~90% estimated daily energy needs and ~47% estimated daily protein needs 3) Initiate Nephro-Susan @ 1 tb qd 4) Advance to 60g [facility] renal standard diet when medically feasible, pending [facility] approval 5) Follow-up with nephrology, cardiology, and pulmonology 6) Continue to monitor I&O, labs, and skin integrity Expected Outcomes/Goals: 1) patient to receive nutrition support within 7 days of NPO status 2) labs to improve 3) wound to improve 4) patient to be extubated and diet to advance 5) f/u in 2-3 days Plan discussed with: Other (Rn) MECHE STEWARD MD June 22, 2024 13:25
--- NOTE | 2024-06-22 17:03 | DVHPN2 ---
Progress Note - Dictate Date Seen: June 22, 2024 Medical Necessity Reason Pt with a Central, PICC or Fol: No The following are medically ne: Eagle Catheter Reason for eagle catheter: Strict I&O Subjective Patient neurologically remains the same. No improvement in her status and does not follow any commands. Follow up head CT is unchanged and shows known left parietal infarction appears to be chronic. Patient had MRI of the brain confirmed this as well on 06/12/2024. vital signs Vital Sign Date Time Temp Pulse Resp B/P (MAP) Pulse Ox O2 Delivery O2 Flow Rate FiO2 06/22/24 16:30 97.2 89 22 148/60 (89) 96 207.0 06/22/24 16:02 30 06/22/24 16:00 Mechanical Ventilator+ Total Intake and Output 06/21/24 06/21/24 06/22/24 15:00 23:00 07:00 Intake Total 387.5 ml 326 ml 365.0 ml Output Total 0 ml Balance 387.5 ml 326 ml 365.0 ml medications Current Medications Medications Dose Ordered Sig/Eric Route Start Time Stop Time Status Last Admin Dose Admin Ondansetron HCl 4 mg Q4HP PRN IV 06/11/24 02:00 Nitroglycerin 0.4 mg Q5MINP PRN SL 06/11/24 02:00 Aspirin 81 mg DAILY PO 06/11/24 10:00 06/22/24 08:25 81 MG Atorvastatin Calcium 40 mg HS PO 06/11/24 22:00 06/21/24 21:57 40 MG Albuterol 2.5 mg Q4HPRN PRN NEB 06/11/24 02:00 06/21/24 14:21 2.5 MG Ipratropium [place] 0.5 mg Q4HPRN PRN NEB 06/11/24 02:00 06/21/24 14:21 0.5 MG Heparin Sodium (Porcine) 5,000 units Q12HR SC 06/11/24 10:00 06/22/24 08:29 5,000 UNITS Pantoprazole Sodium 40 mg DAILY IV 06/11/24 10:00 06/22/24 08:24 40 MG Ceftriaxone Sodium 50 ml @ 100 mls/hr DAILY@09 IV 06/13/24 09:00 06/22/24 08:24 100 MLS/HR Acetaminophen 650 mg Q6HP PRN GT 06/11/24 23:45 06/12/24 02:48 650 MG Nicardipine HCl 250 ml @ 50 mls/hr Q5H IV 06/13/24 14:45 UNV Enteral Nutritional Formula 1,000 ml 25ML/HR GT 06/15/24 13:30 06/20/24 10:08 1,000 ML Hydralazine HCl 10 mg Q6HPRN PRN IV 06/17/24 00:00 06/22/24 15:04 10 MG Nicardipine HCl 50 mg/Sodium Chloride 250 ml @ 25 mls/hr Q10H IV 06/18/24 12:00 06/22/24 07:19 50 MLS/HR Morphine Sulfate 2 mg Q4HPRN PRN IV 06/19/24 15:45 06/19/24 16:24 2 MG Diagnostic Test (Pha) 1 strip Q6HR 06/20/24 00:00 06/22/24 12:00 1 STRIP Insulin Human Regular Q6HR SC 06/20/24 00:00 06/22/24 16:56 2 UNITS Dextrose 50 ml UD PRN IV 06/19/24 18:15 Metoprolol Tartrate 25 mg BID PO 06/20/24 22:00 06/22/24 08:26 25 MG Dopamine HCl/ Dextrose 250 ml @ 15.544 mls/ hr Q16H5M IV 06/21/24 11:00 UNV Nifedipine 90 mg DAILY PO 06/21/24 15:30 06/22/24 08:25 90 MG objective Off sedation comfortable in bed on ventilator without distress. HEENT pupils equal pinpoint round react to light. Neck supple. Heart regular rate and rhythm S1-S2. Lungs fair air movement without wheezing. Abdomen soft positive bowel sounds. Extremities improved edema. laboratory and microbiology Laboratory Tests 06/22/24 03:00 Test 06/22/24 03:00 Range/Units Serum Glucose 105 74-106 mg/dL Assessment/Plan 1. Acute hypoxic respiratory failure requiring intubation with mechanical ventilation secondary to metabolic encephalopathy 2. 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 Hypertensive emergency with the end-organ involvement , off the nicardipine drip 5. End-stage renal disease on hemodialysis received hemodialysis on06/14 6. Coronary artery disease Her MRI of the lumbar spine does not show any evidence of diskitis or osteomyelitis/infection. Blood pressure is controlled better now. Continue current metoprolol and Procardia dose. We will have social Service consultation to see if there is any next of kin notation maker for her to make medical decisions. At present patient is off of sedation for many days and unable to have any neurological response for successful expansion. Patient probably need either PEG tube and tracheostomy placement with a subacute facility placement versus terminal wean and compassionate extubation given her overall prognosis does remain poor. Discussed with the nurse regarding care plan. For now continue present management till able to get hold of any decision makers for her. Dietary Evaluation Review Comments: 1) If patient remains NPO > 7 days, consider EN/TPN to meet at least 75% estimated needs 2) If GI route is preferred, consider Nepro @ 25 mL/hr goal rate as tolerated. EN regimen will provide 1080 kcals, 49g Pro, and 447 mL free H2O per 24 hrs. EN regimen will meet ~90% estimated daily energy needs and ~47% estimated daily protein needs 3) Initiate Nephro-Susan @ 1 tb qd 4) Advance to 60g [facility] renal standard diet when medically feasible, pending [facility] approval 5) Follow-up with nephrology, cardiology, and pulmonology 6) Continue to monitor I&O, labs, and skin integrity Expected Outcomes/Goals: 1) patient to receive nutrition support within 7 days of NPO status 2) labs to improve 3) wound to improve 4) patient to be extubated and diet to advance 5) f/u in 2-3 days Plan discussed with: Other BRIANNE CADE MD June 22, 2024 17:03
--- NOTE | 2024-06-22 22:24 | DVHPN2 ---
Progress Note - Dictate Date Seen: June 22, 2024 Medical Necessity Reason Pt with a Central, PICC or Fol: Yes The following are medically ne: Eagle Catheter Reason for eagle catheter: Strict I&O Subjective Patient was seen and evaluated in follow up in the ICU. Patient is intubated and sedated on ventilator. 30% FiO2. Patient opens eyes to verbal stimuli and is able to visually track. Patient is unable to follow simple commands. HGB 9., HCT 30.2, K 3.4, BUN 30, [employer] AD[employer]ER 4.25. Chest x-ray shows similar lung aeration with stable lines and tubes. vital signs Vital Sign Date Time Temp Pulse Resp B/P (MAP) Pulse Ox O2 Delivery O2 Flow Rate FiO2 06/22/24 12:27 85 21 147/54 (85) 98 30 06/22/24 12:00 Mechanical Ventilator+ 06/22/24 10:15 99.0 210.2 Total Intake and Output 06/21/24 06/21/24 06/22/24 15:00 23:00 07:00 Intake Total 387.5 ml 326 ml 365.0 ml Output Total 0 ml Balance 387.5 ml 326 ml 365.0 ml medications Current Medications Medications Dose Ordered Sig/Eric Route Start Time Stop Time Status Last Admin Dose Admin Ondansetron HCl 4 mg Q4HP PRN IV 06/11/24 02:00 Nitroglycerin 0.4 mg Q5MINP PRN SL 06/11/24 02:00 Aspirin 81 mg DAILY PO 06/11/24 10:00 06/22/24 08:25 81 MG Atorvastatin Calcium 40 mg HS PO 06/11/24 22:00 06/21/24 21:57 40 MG Albuterol 2.5 mg Q4HPRN PRN NEB 06/11/24 02:00 06/21/24 14:21 2.5 MG Ipratropium [place] 0.5 mg Q4HPRN PRN NEB 06/11/24 02:00 06/21/24 14:21 0.5 MG Heparin Sodium (Porcine) 5,000 units Q12HR SC 06/11/24 10:00 06/22/24 08:29 5,000 UNITS Pantoprazole Sodium 40 mg DAILY IV 06/11/24 10:00 06/22/24 08:24 40 MG Ceftriaxone Sodium 50 ml @ 100 mls/hr DAILY@09 IV 06/13/24 09:00 06/22/24 08:24 100 MLS/HR Acetaminophen 650 mg Q6HP PRN GT 06/11/24 23:45 06/12/24 02:48 650 MG Nicardipine HCl 250 ml @ 50 mls/hr Q5H IV 06/13/24 14:45 UNV Enteral Nutritional Formula 1,000 ml 25ML/HR GT 06/15/24 13:30 06/20/24 10:08 1,000 ML Hydralazine HCl 10 mg Q6HPRN PRN IV 06/17/24 00:00 06/22/24 03:59 10 MG Nicardipine HCl 50 mg/Sodium Chloride 250 ml @ 25 mls/hr Q10H IV 06/18/24 12:00 06/22/24 07:19 50 MLS/HR Morphine Sulfate 2 mg Q4HPRN PRN IV 06/19/24 15:45 06/19/24 16:24 2 MG Diagnostic Test (Pha) 1 strip Q6HR 06/20/24 00:00 06/22/24 06:00 1 STRIP Insulin Human Regular Q6HR SC 06/20/24 00:00 06/21/24 18:03 2 UNITS Dextrose 50 ml UD PRN IV 06/19/24 18:15 Metoprolol Tartrate 25 mg BID PO 06/20/24 22:00 06/22/24 08:26 25 MG Dopamine HCl/ Dextrose 250 ml @ 15.544 mls/ hr Q16H5M IV 06/21/24 11:00 UNV Nifedipine 90 mg DAILY PO 06/21/24 15:30 06/22/24 08:25 90 MG objective GENERAL: Intubated on ventilator. EYES: PERRL, EOMI. Anicteric. HENT: Moist mucous membranes. LUNGS: Decreased breath sounds. CARDIOVASCULAR: Regular rate and rhythm. ABDOMEN: Soft, nontender and nondistended. EXTREMITIES: No edema. NEUROLOGIC: No focal neurological deficits. SKIN: Warm, dry. laboratory and microbiology Laboratory Tests 06/22/24 03:00 Test 06/22/24 03:00 Range/Units Serum Glucose 105 74-106 mg/dL Problem List Acute CVA. Hypertensive emergency. Questionable coronary artery disease. Moderate pericardial effusion. Acute hypoxic respiratory failure. End-stage renal disease on hemodialysis. History of T12 compression fracture. Assessment/Plan Continued all current supportive medical care. Aspirin, Lipitor, Metoprolol. IV antibiotics as ordered. IV Hydralazine for SBP >160. Nifedipine. Vasopressors for hemodynamic support. Morphine for pain management. Additional plan as per the hospital course. Critical care time of 45 minutes provided to include time spent evaluation of patient at bedside, when appropriate patient/family education for diagnosis, treatment plan, review of pertinent medical information and discussion of care with specialty providers and PCP. Mechanical ventilator parameters, treatment and adjustments have personally been reviewed by me and treatment plan by photo retoucher has also been reviewed. Dietary Evaluation Review Comments: 1) If patient remains NPO > 7 days, consider EN/TPN to meet at least 75% estimated needs 2) If GI route is preferred, consider Nepro @ 25 mL/hr goal rate as tolerated. EN regimen will provide 1080 kcals, 49g Pro, and 447 mL free H2O per 24 hrs. EN regimen will meet ~90% estimated daily energy needs and ~47% estimated daily protein needs 3) Initiate Nephro-Susan @ 1 tb qd 4) Advance [facility] standard diet when medically feasible, pending [facility] approval 5) Follow-up with nephrology, cardiology, and pulmonology 6) Continue to monitor I&O, labs, and skin integrity Expected Outcomes/Goals: 1) patient to receive nutrition support within 7 days of NPO status 2) labs to improve 3) wound to improve 4) patient to be extubated and diet to advance 5) f/u in 2-3 days Plan discussed with: SHAUN Pérez MD June 22, 2024 13:21
[2024-06-23] VITALS (108 sets, daily range): BP systolic 120–165; BP diastolic 44–120; PULSE 60–96; RESP 8–24; TEMP 97.8–99.1; O2SAT 91–100
[2024-06-23 04:04] LABS: Basophils # (auto) 0 10 ^3/uL (0-0.2); Basophils % (auto) 0.2 % (0.0-2.0); Eosinophils # (auto) 0.2 10 ^3/uL (0-0.8); Hematocrit 28.5 % (36.0-46.0); Hemoglobin 9.6 g/dL (12.2-16.2); Lymphocytes # (auto) 0.6 10 ^3/uL (0.4-5.4); Lymphocytes % (auto) 10.5 % (10.0-50.0); Mean Corpuscular Hgb Conc. 33.6 g/dL (32.0-36.0); Mean Corpuscular Volume 89.2 fL (80.0-100.0); Monocytes # (auto) 0.4 10 ^3/uL (0-1.3); Monocytes % (auto) 6.2 % (0.0-12.0); Neutrophils # (auto) 4.6 10 ^3/uL (1.6-8.6); Neutrophils % (auto) 79.1 % (37.0-80.0); Nucleated Red Blood Cells % 0.2 %; Platelet Count (auto) 132 10^3/uL (140-450); Red Cell Distribution Width 16.7 % (11.8-14.3); White Blood Cell 5.9 10^3/uL (4.4-10.8)
[2024-06-23 04:17] LABS: Alanine Aminotransferase 12 U/L (7-40); Albumin 3.6 g/dL (3.2-4.8); Anion Gap 11 (5-15); Aspartate Aminotransferase 19 U/L (13-40); BUN/Creatinine Ratio 7.6 (10.0-20.0); Bilirubin, Total 0.4 mg/dL (0.2-1.0); Calcium 10.4 mg/dL (8.7-10.4); Carbon Dioxide 29 mmol/L (20-31); Chloride 101 mmol/L (98-107); Glucose 100 mg/dL (74-106); Potassium 3.6 mmol/L (3.5-5.1); Sodium 141 mmol/L (136-145); Total Protein 6.1 g/dL (5.7-8.2)
[2024-06-23 04:18] LABS: Alkaline Phosphatase 128 U/L (46-116); Blood Urea Nitrogen 39 mg/dL (9-23)
--- NOTE | 2024-06-23 05:19 | DVH ---
EXAM: XR Chest, 1 View CLINICAL INDICATION: INTUBATED TECHNIQUE: Frontal view of the chest. COMPARISON: XY CHEST XRAY 1 VIEW on DOS: 06/22/24, XY CHEST PORTABLE on DOS: 06/21/24, XY CHEST PORTABL E on DOS: 06/21/24, XY CHEST PORTABLE on DOS: 06/20/24, XY CHEST PORTABLE on DOS: 06/19/24 FINDINGS: LUNGS AND PLEURAL SPACES: Unremarkable. No consolidation. No pneumothorax. HEART: Cardiomegaly without overt failure. MEDIASTINUM: Unremarkable. Normal mediastinal contour. BONES/JOINTS: Unremarkable. No acute fracture. TUBES, LINES AND DEVICES: Right internal jugular central venous catheter tip in the superior vena c neeta. The endotracheal tube (ETT) is in satisfactory position. Enteric tube tip cannot be seen but i s below the diaphragm. OTHER FINDINGS: . . . IMPRESSION: Cardiomegaly without overt failure.
[2024-06-23 08:03] LABS: Base Excess 3.3 mmol/L (-2.0-3.0)
--- NOTE | 2024-06-23 09:05 | DVHPN2 ---
Progress Note - Dictate Date Seen: June 23, 2024 Medical Necessity Reason Pt with a Central, PICC or Fol: Yes The following are medically ne: Eagle Catheter Reason for eagle catheter: Strict I&O Subjective Patient is intubated and sedated on ventilator. 30% FiO2. Patient undergoing CPAP Trials. vital signs Vital Sign Date Time Temp Pulse Resp B/P (MAP) Pulse Ox O2 Delivery O2 Flow Rate FiO2 06/23/24 08:37 91 24 155/67 06/23/24 07:39 95 30 06/23/24 06:00 Mechanical Ventilator+ 06/23/24 04:00 98.6 209.5 Total Intake and Output 06/22/24 06/22/24 06/23/24 15:00 23:00 07:00 Intake Total 225 ml 380 ml 215 ml Output Total 1 ml 0 ml Balance 225 ml 379 ml 215 ml medications Current Medications Medications Dose Ordered Sig/Eric Route Start Time Stop Time Status Last Admin Dose Admin Ondansetron HCl 4 mg Q4HP PRN IV 06/11/24 02:00 Nitroglycerin 0.4 mg Q5MINP PRN SL 06/11/24 02:00 Aspirin 81 mg DAILY PO 06/11/24 10:00 06/22/24 08:25 81 MG Atorvastatin Calcium 40 mg HS PO 06/11/24 22:00 06/22/24 21:47 40 MG Albuterol 2.5 mg Q4HPRN PRN NEB 06/11/24 02:00 06/21/24 14:21 2.5 MG Ipratropium [place] 0.5 mg Q4HPRN PRN NEB 06/11/24 02:00 06/21/24 14:21 0.5 MG Heparin Sodium (Porcine) 5,000 units Q12HR SC 06/11/24 10:00 06/22/24 21:46 5,000 UNITS Pantoprazole Sodium 40 mg DAILY IV 06/11/24 10:00 06/22/24 08:24 40 MG Ceftriaxone Sodium 50 ml @ 100 mls/hr DAILY@09 IV 06/13/24 09:00 06/22/24 08:24 100 MLS/HR Acetaminophen 650 mg Q6HP PRN GT 06/11/24 23:45 06/12/24 02:48 650 MG Nicardipine HCl 250 ml @ 50 mls/hr Q5H IV 06/13/24 14:45 UNV Enteral Nutritional Formula 1,000 ml 25ML/HR GT 06/15/24 13:30 06/20/24 10:08 1,000 ML Hydralazine HCl 10 mg Q6HPRN PRN IV 06/17/24 00:00 06/23/24 06:36 10 MG Nicardipine HCl 50 mg/Sodium Chloride 250 ml @ 25 mls/hr Q10H IV 06/18/24 12:00 06/22/24 22:44 25 MLS/HR Morphine Sulfate 2 mg Q4HPRN PRN IV 06/19/24 15:45 06/23/24 08:37 2 MG Diagnostic Test (Pha) 1 strip Q6HR 06/20/24 00:00 06/23/24 06:00 1 STRIP Insulin Human Regular Q6HR SC 06/20/24 00:00 06/22/24 16:56 2 UNITS Dextrose 50 ml UD PRN IV 06/19/24 18:15 Metoprolol Tartrate 25 mg BID PO 06/20/24 22:00 06/22/24 21:47 25 MG Dopamine HCl/ Dextrose 250 ml @ 15.544 mls/ hr Q16H5M IV 06/21/24 11:00 UNV Nifedipine 90 mg DAILY PO 06/21/24 15:30 06/22/24 08:25 90 MG objective General Appearance: intubated and sedated HEENT: ET tube Respiratory: Other (Intubated on mechanical ventilator) Cardiovascular: Regular rate, Normal S1, Normal S2 Abdominal: Normal bowel sounds, Soft, No tenderness Extremities: Other (BLE pitting edema 2+) Skin: No rashes Neuro: Other (Altered non arousable) Psych/Mental Status: Other (Unable to assess) laboratory and microbiology Laboratory Tests 06/23/24 03:35 Test 06/23/24 03:35 Range/Units Serum Glucose 100 74-106 mg/dL Assessment/Plan Patient is a 63-year-old female presents to the hospital with: Leucopenia resolved Vertebral Discitis subacute CVA Acute encephalopathy Acute hypoxic respiratory S/P intubation on mechanical ventilator ESRD on HD Fluid overload Hypertensive emergency Hx T12 compression fracture Recommendations: WBC normal today she is off sedation and are trying to extubate her; failed CPAP trial reviewed CXR personally, some bibasilar infiltrates but seems stable. MRI lumbar spine done 06/19 is wo contrast which is not very ideal for infection. there is no comment about discitis or phlegmon. however, MRI in [facility] on 05/22 commented about discitis. would consider resuming and completing the course for now since she already has been on antibiotics since 05/22. tagged wbc scan may be a better study since she on HD, mri w contrast might be difficult. reviewed [facility] records in detail: She had low wbc from 03/23/2024 with 3.4 with intermittent 1.8 and she has been admitted 2-3 times and wbc is in same range. no work up done She had mri spine with on 05/22 shows hypointense T1 and hyperintense T2 at L3-L4 concerning for discitis osteomyelitis. Hyperintense T2 signal along epidural space L3-L4 for 5mm AP diameter concerning for Phlegmon. ID Dr Carlisle saw the patient and recommended IV Vancomycin for 6 weeks. There is no positive blood cultures or biopsy done. His notes on 05/23 recommended 6 weeks of IV vancomycin ( switched from ceftriaxone for low wbc). since leucopenia was present in prior admissions too, its unlikely due to Vancomycin discussed with nephrology, reviewed old labs, back in 2022 also her wbc was in 3k. unsure if she had work up done platelets were in 200 in 2023 but later its been low too recommended repeat MRI lumbar spine to evaluate epidural phlegmon in previous mri ( of note it was wo contrast) MRI showed Severe spinal canal stenosis with severe bilateral lateral recess narrowing at L3-L4. Severe bilateral neural foramina stenosis at L3-L4 with moderate right and severe left-sided neural foramina stenosis at L4-L5. Grade 1 anterolisthesis of L4 on L5. peripheral smear manual ordered Hematology consult but unavailable; patient needs work up for her chronic leucopenia, consider following up as outpt ( heme unavailable for inpatient consult) monitor cbc Continue IV Ceftriaxone for now; vancomycin on hold Monitor Vancomycin Trough, on HD 06/16, Vancomycin Random is 27 on MV Antibiotic status: Ceftriaxone IV [Started on 06/11 - Ongoing] Vancomycin IV [Started on 06/11 - 06/16] 06/11, Respiratory culture preliminary showed Normal Oropharyngeal Trish 06/11, Blood culture showed no growth 06/13, MRSA screening came back negative Review of Imagin/24, Chest x-ray showed Cardiomegaly with mild congestion. Prognosis guarded Thank you for consult. Dietary Evaluation Review Comments: 1) If patient remains NPO > 7 days, consider EN/TPN to meet at least 75% estimated needs 2) If GI route is preferred, consider Nepro @ 25 mL/hr goal rate as tolerated. EN regimen will provide 1080 kcals, 49g Pro, and 447 mL free H2O per 24 hrs. EN regimen will meet ~90% estimated daily energy needs and ~47% estimated daily protein needs 3) Initiate Nephro-Susan @ 1 tb qd 4) Advance to 60g [facility] renal standard diet when medically feasible, pending [facility] approval 5) Follow-up with nephrology, cardiology, and pulmonology 6) Continue to monitor I&O, labs, and skin integrity Expected Outcomes/Goals: 1) patient to receive nutrition support within 7 days of NPO status 2) labs to improve 3) wound to improve 4) patient to be extubated and diet to advance 5) f/u in 2-3 days Plan discussed with: GONZÁLEZ Vidal MD June 23, 2024 09:05
--- NOTE | 2024-06-23 09:23 | DVHPN2 ---
Progress Note - Dictate Date Seen: June 23, 2024 Medical Necessity Reason Pt with a Central, PICC or Fol: Yes The following are medically ne: Eagle Catheter Reason for eagle catheter: Strict I&O Subjective Ms. Dawkins is a 63 years old female with a history of chronic kidney failure on hemodialysis, recent spine fracture, she came to the [facility] on 06/10/2024 with a chief complaint of back pain. I have seen and examined the patient, I have discussed with her nurse, she is intubated, but is awake, I saw her moving in the right arms, but she does not follow my verbal commands She moves both arms and legs earlier today and she followed verbal commands according to her nurse On 06/18/24, anisocoria with the right side slightly smaller noticed, but on 06/20/2024, the eyes are equally round and reactive She has been off sedation since 12:00 p.m. on 06/17/2024 Blood culture, 06/11/2024: Urinalysis, 06/11/2024: Negative Plasma alcohol, 06/10/2024: <3 ABG, 06/08/2024: Respiratory alkalosis WBC/HB/PLT/MCV, 06/11/2024: 1.7/10.5/114/89.3, 06/15/2024: 2.2/9.7/124/87.7, 06/16/2024: 0.5/10.3/136/86.5, 06/17/2024: 7.2/9.9/152/87.3 Na, 06/10/2024: 136, 06/12/2024: 133, 06/14/2024: 125, 06/15/24: 130 BUN/CR, 05/2624: 47/7.51, 06/15/2024: 31/5.74 HGB A1c, 06/11/2024: 4.3 Liver function tests, 06/10/2024: Unremarkable TG/HDL/LDL/HDL, 06/11/2024: 63/106/47/40 Echocardiogram, 06/11/2024: LVEF is normal 50-55% Rv function normal Moderate pericardial effusion with no evidence of tamponade Large left pleural effusion Chest x-ray, 06/11/2024: Lines and tubes in satisfactory position. No significant interval change Chest x-ray, 06/15/2024: 1. Mild diffuse increased prominence of the pulmonary vasculature. 2. Lines and tubes unchanged CT head, 06/10/2024: Subacute stroke involving the left frontal lobe white matter which also may involve the left temporal lobe as well can not rule out acute features CT head, neck, 06/10/2024: No significant vascular stenosis involving the head / neck. Moderate occlusion of the bilateral V4 segments vertebral arteries due to calcified and noncalcified plaques CT head 06/21/24: 1. No acute intracranial hemorrhage 2. Stable left parietal infarct unchanged from 06/10/2024. CT T-spine, 06/10/2024: No evidence of fracture in the thoracic spine CT lumbar spine, 06/10/2024: No acute fracture. Grade 1 anterolisthesis at L4-L5 with bilateral pars defects. Moderate to severe endplate degenerative changes at L4-L5, T12-L1, and L5-S1. There is severe spinal canal narrowing at L4-L5. Partially visualized moderate bilateral pleural effusions. Mild diffuse anasarca MRI head, 06/12/2024: 1. There is no acute intracranial process. 2. Chronic infarct in the superolateral left frontal lobe. (I saw another possible chronic stroke: Images 16) MRI lumbar spine, 06/19/2024: Severe spinal canal stenosis with severe bilateral lateral recess narrowing at L3-L4. Severe bilateral neural foramina stenosis at L3-L4 with moderate right and severe left-sided neural foramina stenosis at L4- L5. Grade 1 anterolisthesis of L4 on L5. vital signs Vital Sign Date Time Temp Pulse Resp B/P (MAP) Pulse Ox O2 Delivery O2 Flow Rate FiO2 06/23/24 08:56 93 141/50 06/23/24 08:37 24 06/23/24 07:39 95 30 06/23/24 06:00 Mechanical Ventilator+ 06/23/24 04:00 98.6 209.5 Total Intake and Output 06/22/24 06/22/24 06/23/24 15:00 23:00 07:00 Intake Total 225 ml 380 ml 215 ml Output Total 1 ml 0 ml Balance 225 ml 379 ml 215 ml medications Current Medications Medications Dose Ordered Sig/Eric Route Start Time Stop Time Status Last Admin Dose Admin Ondansetron HCl 4 mg Q4HP PRN IV 06/11/24 02:00 Nitroglycerin 0.4 mg Q5MINP PRN SL 06/11/24 02:00 Aspirin 81 mg DAILY PO 06/11/24 10:00 06/23/24 08:56 81 MG Atorvastatin Calcium 40 mg HS PO 06/11/24 22:00 06/22/24 21:47 40 MG Albuterol 2.5 mg Q4HPRN PRN NEB 06/11/24 02:00 06/21/24 14:21 2.5 MG Ipratropium [place] 0.5 mg Q4HPRN PRN NEB 06/11/24 02:00 06/21/24 14:21 0.5 MG Heparin Sodium (Porcine) 5,000 units Q12HR SC 06/11/24 10:00 06/23/24 09:01 5,000 UNITS Pantoprazole Sodium 40 mg DAILY IV 06/11/24 10:00 06/22/24 08:24 40 MG Ceftriaxone Sodium 50 ml @ 100 mls/hr DAILY@09 IV 06/13/24 09:00 06/23/24 08:56 100 MLS/HR Acetaminophen 650 mg Q6HP PRN GT 06/11/24 23:45 06/12/24 02:48 650 MG Nicardipine HCl 250 ml @ 50 mls/hr Q5H IV 06/13/24 14:45 UNV Enteral Nutritional Formula 1,000 ml 25ML/HR GT 06/15/24 13:30 06/20/24 10:08 1,000 ML Hydralazine HCl 10 mg Q6HPRN PRN IV 06/17/24 00:00 06/23/24 06:36 10 MG Nicardipine HCl 50 mg/Sodium Chloride 250 ml @ 25 mls/hr Q10H IV 06/18/24 12:00 06/23/24 08:42 25 MLS/HR Morphine Sulfate 2 mg Q4HPRN PRN IV 06/19/24 15:45 06/23/24 08:37 2 MG Diagnostic Test (Pha) 1 strip Q6HR 06/20/24 00:00 06/23/24 06:00 1 STRIP Insulin Human Regular Q6HR SC 06/20/24 00:00 06/22/24 16:56 2 UNITS Dextrose 50 ml UD PRN IV 06/19/24 18:15 Metoprolol Tartrate 25 mg BID PO 06/20/24 22:00 06/23/24 08:56 25 MG Dopamine HCl/ Dextrose 250 ml @ 15.544 mls/ hr Q16H5M IV 06/21/24 11:00 UNV Nifedipine 90 mg DAILY PO 06/21/24 15:30 06/22/24 08:25 90 MG objective The patient is well-nourished and well-developed with no distress. The patient is intubated MENTAL STATUS: Subjective CRANIAL NERVES: Pupils are equal, round and reactive. There are conjugated eye movement. No signs of facial weakness. There are gagging or coughing reflexes SENSATION: Okay to light touch and pinprick MOTOR: Normal tone in the upper and lower extremity. Normal muscle bulk. No fasciculations. Subjective REFLEXES: Deep tendon reflexes are symmetrical. No pathological reflexes. CEREBELLAR/COORDINATION: Deferred GAIT/STATION: deferred. laboratory and microbiology Laboratory Tests 06/23/24 03:35 Test 06/23/24 03:35 Range/Units Serum Glucose 100 74-106 mg/dL Problem List 2 chronic strokes in the left hemisphere per MRI and CT scan, asymptomatic Acute low back pain to rule out diskitis Acute respiratory failure Pancytopenia, better Hyponatremia Hypokalemia Chronic kidney failure Anisocoria noticed on 06/18/2024, uncertain clinical significance Looks improving Assessment/Plan Monitoring Supportive treatment ICU care Follow-up labs Stabilize vitals/pressor drip Respiratory support/vent management IV antibiotics Aspirin 81 mg daily Lipitor 40 mg daily DVT prophylaxis GI prophylaxis Consult hematology Infectious disease on case Cardiology on case Pulmonary on case Nephrology on case More recommendation per clinical course This medical document was created using an electronic medical record system with [employer] dictation system. Although this document has been carefully reviewed, there may still be some phonetic and typographical errors. These areas are purely typographical due to imperfections of the software programs, and do not reflect any compromise in the patient's medical care Prognosis guarded Dietary Evaluation Review Comments: 1) If patient remains NPO > 7 days, consider EN/TPN to meet at least 75% estimated needs 2) If GI route is preferred, consider Nepro @ 25 mL/hr goal rate as tolerated. EN regimen will provide 1080 kcals, 49g Pro, and 447 mL free H2O per 24 hrs. EN regimen will meet ~90% estimated daily energy needs and ~47% estimated daily protein needs 3) Initiate Nephro-Susan @ 1 tb qd 4) [facility] when medically feasible, pending [facility] approval 5) Follow-up with nephrology, cardiology, and pulmonology 6) Continue to monitor I&O, labs, and skin integrity Expected Outcomes/Goals: 1) patient to receive nutrition support within 7 days of NPO status 2) labs to improve 3) wound to improve 4) patient to be extubated and diet to advance 5) f/u in 2-3 days Plan discussed with: Other FORD ORTA MD June 23, 2024 09:23
[2024-06-23] MEDS: DEXMEDETOMIDINE HCL IN D5W 100 ML IV SCH (11:39)
--- NOTE | 2024-06-23 15:16 | DVHPN2 ---
Progress Note - Dictate Date Seen: June 23, 2024 Medical Necessity Reason Pt with a Central, PICC or Fol: Yes The following are medically ne: Eagle Catheter Reason for eagle catheter: Strict I&O Subjective CPAP trial completed today and will be repeated tomorrow. vital signs Vital Sign Date Time Temp Pulse Resp B/P (MAP) Pulse Ox O2 Delivery O2 Flow Rate FiO2 06/23/24 15:00 84 10 132/59 (83) 95 06/23/24 14:36 30 06/23/24 14:00 Mechanical Ventilator+ 06/23/24 08:00 98.6 98.6 Total Intake and Output 06/22/24 06/22/24 06/23/24 15:00 23:00 07:00 Intake Total 225 ml 380 ml 240 ml Output Total 1 ml 0 ml Balance 225 ml 379 ml 240 ml medications Current Medications Medications Dose Ordered Sig/Eric Route Start Time Stop Time Status Last Admin Dose Admin Ondansetron HCl 4 mg Q4HP PRN IV 06/11/24 02:00 Nitroglycerin 0.4 mg Q5MINP PRN SL 06/11/24 02:00 Aspirin 81 mg DAILY PO 06/11/24 10:00 06/23/24 08:56 81 MG Albuterol 2.5 mg Q4HPRN PRN NEB 06/11/24 02:00 06/23/24 12:05 2.5 MG Ipratropium [place] 0.5 mg Q4HPRN PRN NEB 06/11/24 02:00 06/23/24 12:05 0.5 MG Heparin Sodium (Porcine) 5,000 units Q12HR SC 06/11/24 10:00 06/23/24 09:01 5,000 UNITS Pantoprazole Sodium 40 mg DAILY IV 06/11/24 10:00 06/22/24 08:24 40 MG Ceftriaxone Sodium 50 ml @ 100 mls/hr DAILY@09 IV 06/13/24 09:00 06/23/24 08:56 100 MLS/HR Acetaminophen 650 mg Q6HP PRN GT 06/11/24 23:45 06/12/24 02:48 650 MG Nicardipine HCl 250 ml @ 50 mls/hr Q5H IV 06/13/24 14:45 UNV Enteral Nutritional Formula 1,000 ml 25ML/HR GT 06/15/24 13:30 5//25 10:08 1,000 ML Hydralazine HCl 10 mg Q6HPRN PRN IV 06/17/24 00:00 06/23/24 06:36 10 MG Nicardipine HCl 50 mg/Sodium Chloride 250 ml @ 25 mls/hr Q10H IV 06/18/24 12:00 06/23/24 08:42 25 MLS/HR Morphine Sulfate 2 mg Q4HPRN PRN IV 06/19/24 15:45 06/23/24 08:37 2 MG Diagnostic Test (Pha) 1 strip Q6HR 06/20/24 00:00 06/23/24 11:53 1 STRIP Insulin Human Regular Q6HR SC 06/20/24 00:00 06/22/24 16:56 2 UNITS Dextrose 50 ml UD PRN IV 06/19/24 18:15 Dopamine HCl/ Dextrose 250 ml @ 15.544 mls/ hr Q16H5M IV 06/21/24 11:00 UNV Metoprolol Tartrate 50 mg BID PO 06/23/24 22:00 Amlodipine Besylate 10 mg DAILY PO 06/24/24 10:00 UNV objective HEENT: ET tube in place Pulmonary: Diminished lung sounds bilaterally Cardiovascular S1-S2, no S3 or S4 Abdomen: Bowel sounds positive, soft no rebound tenderness Skin: No rash Neurological: Obtunded, poor purposeful movements. Hemodialysis access right upper chest CVC laboratory and microbiology Laboratory Tests 06/23/24 03:35 Test 06/23/24 03:35 Range/Units Serum Glucose 100 74-106 mg/dL Assessment/Plan Assessment: End-stage renal disease on HD Hypokalemia Anemia of renal disease. Acute hypoxic Respiratory failure, on mechanical ventilation HTN urgency Subacute stroke. T-spine fracture. Leukopenia Plan: Hemodialysis in a.m., breathing trial in a.m.. Discontinue nifedipine as this can not be crossed. Start amlodipine 10 mg daily. Once oral route a reestablish switch to nifedipine 90 mg twice a day. On metoprolol 50 mg twice a day. on tube feeding Daily BMP Wean off Cardene drip ID consult appreciated Continue IV antibiotics ANANTH post HD as needed, goal Hb: 10-11 g/dl Thank you very much for allowing us to participate in the care of this patient. Dietary Evaluation Review Comments: 1) If patient remains NPO > 7 days, consider EN/TPN to meet at least 75% estimated needs 2) If GI route is preferred, consider Nepro @ 25 mL/hr goal rate as tolerated. EN regimen will provide 1080 kcals, 49g Pro, and 447 mL free H2O per 24 hrs. EN regimen will meet ~90% estimated daily energy needs and ~47% estimated daily protein needs 3) Initiate Nephro-Susan @ 1 tb qd 4) Advance to 60g CCHO renal standard diet when medically feasible, pending [facility] approval 5) Follow-up with nephrology, cardiology, and pulmonology 6) Continue to monitor I&O, labs, and skin integrity Expected Outcomes/Goals: 1) patient to receive nutrition support within 7 days of NPO status 2) labs to improve 3) wound to improve 4) patient to be extubated and diet to advance 5) f/u in 2-3 days Plan discussed with: Patient JUAN R MARIEE MD June 23, 2024 15:16
--- NOTE | 2024-06-23 16:43 | DVHPN2 ---
Progress Note - Dictate Date Seen: June 23, 2024 Medical Necessity Reason Pt with a Central, PICC or Fol: Yes The following are medically ne: Eagle Catheter Reason for eagle catheter: Strict I&O Subjective Patient is more awake and alert today. Still remains on ventilator. Undergoing CPAP trials. vital signs Vital Sign Date Time Temp Pulse Resp B/P (MAP) Pulse Ox O2 Delivery O2 Flow Rate FiO2 06/23/24 16:30 81 12 140/56 (84) 95 06/23/24 16:18 30 06/23/24 16:00 Mechanical Ventilator+ 06/23/24 08:00 98.6 98.6 Total Intake and Output 06/22/24 06/22/24 06/23/24 15:00 23:00 07:00 Intake Total 225 ml 380 ml 240 ml Output Total 1 ml 0 ml Balance 225 ml 379 ml 240 ml medications Current Medications Medications Dose Ordered Sig/Eric Route Start Time Stop Time Status Last Admin Dose Admin Ondansetron HCl 4 mg Q4HP PRN IV 06/11/24 02:00 Nitroglycerin 0.4 mg Q5MINP PRN SL 06/11/24 02:00 Aspirin 81 mg DAILY PO 06/11/24 10:00 06/23/24 08:56 81 MG Albuterol 2.5 mg Q4HPRN PRN NEB 06/11/24 02:00 06/23/24 12:05 2.5 MG Ipratropium [place] 0.5 mg Q4HPRN PRN NEB 06/11/24 02:00 06/23/24 12:05 0.5 MG Heparin Sodium (Porcine) 5,000 units Q12HR SC 06/11/24 10:00 06/23/24 09:01 5,000 UNITS Pantoprazole Sodium 40 mg DAILY IV 06/11/24 10:00 06/22/24 08:24 40 MG Ceftriaxone Sodium 50 ml @ 100 mls/hr DAILY@09 IV 06/13/24 09:00 06/23/24 08:56 100 MLS/HR Acetaminophen 650 mg Q6HP PRN GT 06/11/24 23:45 06/12/24 02:48 650 MG Nicardipine HCl 250 ml @ 50 mls/hr Q5H IV 06/13/24 14:45 UNV Enteral Nutritional Formula 1,000 ml 25ML/HR GT 06/15/24 13:30 06/20/24 10:08 1,000 ML Hydralazine HCl 10 mg Q6HPRN PRN IV 06/17/24 00:00 06/23/24 06:36 10 MG Nicardipine HCl 50 mg/Sodium Chloride 250 ml @ 25 mls/hr Q10H IV 06/18/24 12:00 06/23/24 08:42 25 MLS/HR Morphine Sulfate 2 mg Q4HPRN PRN IV 06/19/24 15:45 06/23/24 08:37 2 MG Diagnostic Test (Pha) 1 strip Q6HR 06/20/24 00:00 06/23/24 11:53 1 STRIP Insulin Human Regular Q6HR SC 06/20/24 00:00 06/22/24 16:56 2 UNITS Dextrose 50 ml UD PRN IV 06/19/24 18:15 Dopamine HCl/ Dextrose 250 ml @ 15.544 mls/ hr Q16H5M IV 06/21/24 11:00 UNV Metoprolol Tartrate 50 mg BID PO 06/23/24 22:00 Amlodipine Besylate 10 mg DAILY PO 06/24/24 10:00 objective Opens her eyes calling her name. Able to squeeze hands when asked. Heart regular rate and rhythm S1-S2. Lungs without rales wheezes. Abdomen soft positive bowel sounds. Extremities no edema laboratory and microbiology Laboratory Tests 06/23/24 03:35 Test 06/23/24 03:35 Range/Units Serum Glucose 100 74-106 mg/dL Assessment/Plan 1. Acute hypoxic respiratory failure requiring intubation with mechanical ventilation secondary to metabolic encephalopathy 2. 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 Hypertensive emergency with the end-organ involvement , off the nicardipine drip 5. End-stage renal disease on hemodialysis received hemodialysis on06/14 6. Coronary artery disease Proceed with CPAP trials as she is undergoing and an it is safe extubate per Pulmonary recommendations. Meantime continue adjusted blood pressure medications for Cardiology recommendations. Otherwise no changes to present management. Discussed with the nurse at bedside regarding care plan. Dietary Evaluation Review Comments: 1) If patient remains NPO > 7 days, consider EN/TPN to meet at least 75% estimated needs 2) If GI route is preferred, consider Nepro @ 25 mL/hr goal rate as tolerated. EN regimen will provide 1080 kcals, 49g Pro, and 447 mL free H2O per 24 hrs. EN regimen will meet ~90% estimated daily energy needs and ~47% estimated daily protein needs 3) Initiate Nephro-Susan @ 1 tb qd 4) Advance to 60g CCHO renal standard diet when medically feasible, pending [facility] approval 5) Follow-up with nephrology, cardiology, and pulmonology 6) Continue to monitor I&O, labs, and skin integrity Expected Outcomes/Goals: 1) patient to receive nutrition support within 7 days of NPO status 2) labs to improve 3) wound to improve 4) patient to be extubated and diet to advance 5) f/u in 2-3 days Plan discussed with: BRIANNE Gilbert MD June 23, 2024 16:43
[2024-06-23] MEDS: amLODIPine BESYLATE 5 MG TAB PO ONE (16:50)
[2024-06-23] MEDS ORDERED: VANCOMYCIN PER PHARMACY 0 MG IV SCH (20:45)
[2024-06-23] MEDS: METOPROLOL TARTRATE 25 MG TAB PO SCH (21:31)
[2024-06-23] MEDS: VANCOMYCIN 1.25gm/250mL PREMIX or KIT IV ONE (22:26)
--- NOTE | 2024-06-23 22:27 | DVHPN2 ---
Progress Note - Dictate Date Seen: June 23, 2024 Medical Necessity Reason Pt with a Central, PICC or Fol: Yes The following are medically ne: Eagle Catheter Reason for eagle catheter: Strict I&O Subjective Patient seen and examined at bedside. Intubated on mechanical ventilator. Overnight events reviewed. vital signs Vital Sign Date Time Temp Pulse Resp B/P (MAP) Pulse Ox O2 Delivery O2 Flow Rate FiO2 06/23/24 21:31 85 137/57 06/23/24 19:45 22 92 30 06/23/24 18:17 Mechanical Ventilator+ 06/23/24 16:00 97.8 97.8 Total Intake and Output 06/22/24 06/22/24 06/23/24 15:00 23:00 07:00 Intake Total 225 ml 380 ml 240 ml Output Total 1 ml 0 ml Balance 225 ml 379 ml 240 ml medications Current Medications Medications Dose Ordered Sig/Eric Route Start Time Stop Time Status Last Admin Dose Admin Ondansetron HCl 4 mg Q4HP PRN IV 06/11/24 02:00 Nitroglycerin 0.4 mg Q5MINP PRN SL 06/11/24 02:00 Aspirin 81 mg DAILY PO 06/11/24 10:00 06/23/24 08:56 81 MG Albuterol 2.5 mg Q4HPRN PRN NEB 06/11/24 02:00 06/23/24 12:05 2.5 MG Ipratropium [place] 0.5 mg Q4HPRN PRN NEB 06/11/24 02:00 06/23/24 12:05 0.5 MG Heparin Sodium (Porcine) 5,000 units Q12HR SC 06/11/24 10:00 06/23/24 21:32 5,000 UNITS Pantoprazole Sodium 40 mg DAILY IV 06/11/24 10:00 06/22/24 08:24 40 MG Ceftriaxone Sodium 50 ml @ 100 mls/hr DAILY@09 IV 06/13/24 09:00 06/23/24 08:56 100 MLS/HR Acetaminophen 650 mg Q6HP PRN GT 06/11/24 23:45 06/12/24 02:48 650 MG Nicardipine HCl 250 ml @ 50 mls/hr Q5H IV 06/13/24 14:45 UNV Enteral Nutritional Formula 1,000 ml 25ML/HR GT 06/15/24 13:30 06/20/24 10:08 1,000 ML Hydralazine HCl 10 mg Q6HPRN PRN IV 06/17/24 00:00 06/23/24 06:36 10 MG Nicardipine HCl 50 mg/Sodium Chloride 250 ml @ 25 mls/hr Q10H IV 06/18/24 12:00 06/23/24 19:26 12.5 MLS/HR Morphine Sulfate 2 mg Q4HPRN PRN IV 06/19/24 15:45 06/23/24 08:37 2 MG Diagnostic Test (Pha) 1 strip Q6HR 06/20/24 00:00 06/23/24 17:25 1 STRIP Insulin Human Regular Q6HR SC 06/20/24 00:00 06/22/24 16:56 2 UNITS Dextrose 50 ml UD PRN IV 06/19/24 18:15 Dopamine HCl/ Dextrose 250 ml @ 15.544 mls/ hr Q16H5M IV 06/21/24 11:00 UNV Metoprolol Tartrate 50 mg BID PO 06/23/24 22:00 06/23/24 21:31 50 MG Amlodipine Besylate 10 mg DAILY PO 06/24/24 10:00 Vancomycin HCl 0 ml @ 0 mls/hr UD IV 06/23/24 20:45 UNV objective Gen.: Patient lying in bed in medical ICU. Intubated on mechanical ventilator. Head: Normocephalic, atraumatic. Eyes: PERRLA. Ears: Normal external anatomy. Throat: Endotracheal tube and orogastric tube in place. Neck: Supple, trachea midline. Chest: Transmitted breath sounds bilaterally. Decreased air entry bilaterally. No wheezing. Bibasilar crackles. Cardiovascular: Positive S1, positive S2. Regular rate and rhythm. Abdomen: Positive bowel sounds in all 4 quadrants. Soft, nontender, nondistended. : Eagel in place. Normal external genitalia. Rectal: Deferred. Skin: Warm, dry. Intact. Extremities: 2+ radial pulses bilaterally. No lower extremity edema. Neuro: Off sedation laboratory and microbiology Laboratory Tests 06/23/24 03:35 Test 06/23/24 03:35 Range/Units Serum Glucose 100 74-106 mg/dL Assessment/Plan Impression: Acute hypoxic respiratory failure On mechanical ventilator Acute CVA Acute encephalopathy ESRD, on hemodialysis Pulmonary edema Shock Obesity BMI 33.3 Events: Remains on mechanical ventilation On AC mode; RR 18, VT 450, PEEP 5, FiO2 30% CXR demonstrates cardiomegaly. ET tube in place. ABG notable for alkalemia Remains off sedation On Precedex Mentation prohibitive Continue abx Continue bronchodilators Nicardipine drip for BP control Accu-Cheks, ISS Protonix for GI prophylaxis Continue daily CPAP. Patient underwent HD yesterday Monitor renal function Monitor electrolytes. Supplement as necessary. Monitor ins and outs. Follow up Nephrology recs Labs and imaging reviewed Plan: s/p intubation on mechanical ventilator. On AC mode; RR 18, VT 450, PEEP 5, FiO2 30% Titrate FIO2 to keep O2 saturation above 90%. VAP bundle. Daily ABG and CXR while intubated Off sedation On nicardipine drip for blood pressure Continue antibiotics. F/u cultures. Continue bronchodilators Echo reviewed Cardiology recs appreciated Pressors as necessary for hemodynamic support Titrate to keep mean arterial pressure greater than 65 mmHg. HD per Nephrology Monitor renal function Monitor electrolytes. Supplement as necessary. Monitor ins and outs. Maintain euvolemia. GI prophylaxis. DVT prophylaxis. Prognosis: Poor given patient's multiple co-morbidities. Condition: Critical Rest of plan per hospitalist and other consultants. A total of 35 minutes of critical care time was spent reviewing the patient record, examining the patient, making a diagnostic and therapeutic plan, discussing this plan with the medical personnel, following up on diagnostic studies and following the patient for clinical stability excluding any and all procedures. At least 50% of this time was spent in direct, [id number] contact. Thank you, LISA Garcia, for allowing me to participate in this patient's care. Further recommendations will depend on the patient's clinical course. Please do not hesitate to contact me if you have any questions or concerns. This medical document was created using an electronic medical record system with [employer] dictation system. Although these documentations are being carefully reviewed, there may still be some phonetic and typographical changes. The errors are purely typographical, due to imperfection on the software program, and do not reflect any compromise in the patient's medical care. Dietary Evaluation Review Comments: 1) If patient remains NPO > 7 days, consider EN/TPN to meet at least 75% estimated needs 2) If GI route is preferred, consider Nepro @ 25 mL/hr goal rate as tolerated. EN regimen will provide 1080 kcals, 49g Pro, and 447 mL free H2O per 24 hrs. EN regimen will meet ~90% estimated daily energy needs and ~47% estimated daily protein needs 3) Initiate Nephro-Susan @ 1 tb qd 4) Advance to 60g CCHO renal standard diet when medically feasible, pending [facility] approval 5) Follow-up with nephrology, cardiology, and pulmonology 6) Continue to monitor I&O, labs, and skin integrity Expected Outcomes/Goals: 1) patient to receive nutrition support within 7 days of NPO status 2) labs to improve 3) wound to improve 4) patient to be extubated and diet to advance 5) f/u in 2-3 days Plan discussed with: Other (DAVID Maharaj) Critical Care Time(min): 35 NAE BELLAMY MD June 23, 2024 22:27
--- NOTE | 2024-06-23 22:32 | DVHPN2 ---
Progress Note - Dictate Date Seen: June 23, 2024 Medical Necessity Reason Pt with a Central, PICC or Fol: Yes The following are medically ne: Eagle Catheter Reason for eagle catheter: Strict I&O Subjective Patient was seen and evaluated in follow up in the ICU. Patient is intubated on ventilator. 30% FiO2. Patient is off sedation. Patient is more awake and alert today. Patient undergoing CPAP trials. HGB 9.6, HCT 28.5, BUN 39, [place] 5.13. vital signs Vital Sign Date Time Temp Pulse Resp B/P (MAP) Pulse Ox O2 Delivery O2 Flow Rate FiO2 06/23/24 22:20 73 22 135/62 (86) 93 30 06/23/24 18:17 Mechanical Ventilator+ 06/23/24 16:00 97.8 97.8 Total Intake and Output 06/22/24 06/22/24 06/23/24 15:00 23:00 07:00 Intake Total 225 ml 380 ml 240 ml Output Total 1 ml 0 ml Balance 225 ml 379 ml 240 ml medications Current Medications Medications Dose Ordered Sig/Eric Route Start Time Stop Time Status Last Admin Dose Admin Ondansetron HCl 4 mg Q4HP PRN IV 06/11/24 02:00 Nitroglycerin 0.4 mg Q5MINP PRN SL 06/11/24 02:00 Aspirin 81 mg DAILY PO 06/11/24 10:00 06/23/24 08:56 81 MG Albuterol 2.5 mg Q4HPRN PRN NEB 06/11/24 02:00 06/23/24 12:05 2.5 MG Ipratropium [place] 0.5 mg Q4HPRN PRN NEB 06/11/24 02:00 06/23/24 12:05 0.5 MG Heparin Sodium (Porcine) 5,000 units Q12HR SC 06/11/24 10:00 06/23/24 21:32 5,000 UNITS Pantoprazole Sodium 40 mg DAILY IV 06/11/24 10:00 06/22/24 08:24 40 MG Ceftriaxone Sodium 50 ml @ 100 mls/hr DAILY@09 IV 06/13/24 09:00 06/23/24 08:56 100 MLS/HR Acetaminophen 650 mg Q6HP PRN GT 06/11/24 23:45 06/12/24 02:48 650 MG Nicardipine HCl 250 ml @ 50 mls/hr Q5H IV 06/13/24 14:45 UNV Enteral Nutritional Formula 1,000 ml 25ML/HR GT 06/15/24 13:30 06/20/24 10:08 1,000 ML Hydralazine HCl 10 mg Q6HPRN PRN IV 06/17/24 00:00 06/23/24 06:36 10 MG Nicardipine HCl 50 mg/Sodium Chloride 250 ml @ 25 mls/hr Q10H IV 06/18/24 12:00 06/23/24 19:26 12.5 MLS/HR Morphine Sulfate 2 mg Q4HPRN PRN IV 06/19/24 15:45 06/23/24 08:37 2 MG Diagnostic Test (Pha) 1 strip Q6HR 06/20/24 00:00 06/23/24 17:25 1 STRIP Insulin Human Regular Q6HR SC 06/20/24 00:00 06/22/24 16:56 2 UNITS Dextrose 50 ml UD PRN IV 06/19/24 18:15 Dopamine HCl/ Dextrose 250 ml @ 15.544 mls/ hr Q16H5M IV 06/21/24 11:00 UNV Metoprolol Tartrate 50 mg BID PO 06/23/24 22:00 06/23/24 21:31 50 MG Amlodipine Besylate 10 mg DAILY PO 06/24/24 10:00 Vancomycin HCl 0 ml @ 0 mls/hr UD IV 06/23/24 20:45 UNV objective GENERAL: Intubated on ventilator. EYES: PERRL, EOMI. Anicteric. HENT: Moist mucous membranes. LUNGS: Decreased breath sounds. CARDIOVASCULAR: Regular rate and rhythm. ABDOMEN: Soft, nontender and nondistended. EXTREMITIES: No edema. NEUROLOGIC: No focal neurological deficits. SKIN: Warm, dry. laboratory and microbiology Laboratory Tests 06/23/24 03:35 Test 06/23/24 03:35 Range/Units Serum Glucose 100 74-106 mg/dL Problem List Acute CVA. Hypertensive emergency. Questionable coronary artery disease. Moderate pericardial effusion. Acute hypoxic respiratory failure. End-stage renal disease on hemodialysis. History of T12 compression fracture. Assessment/Plan Continued all current supportive medical care. Aspirin, Lipitor, Metoprolol. IV antibiotics as ordered. IV Hydralazine for SBP >160. Nifedipine. Vasopressors for hemodynamic support. Morphine for pain management. Additional plan as per the hospital course. Critical care time of 45 minutes provided to include time spent evaluation of patient at bedside, when appropriate patient/family education for diagnosis, treatment plan, review of pertinent medical information and discussion of care with specialty providers and PCP. Mechanical ventilator parameters, treatment and adjustments have personally been reviewed by me and treatment plan by hand tool lapper has also been reviewed. Dietary Evaluation Review Comments: 1) If patient remains NPO > 7 days, consider EN/TPN to meet at least 75% estimated needs 2) If GI route is preferred, consider Nepro @ 25 mL/hr goal rate as tolerated. EN regimen will provide 1080 kcals, 49g Pro, and 447 mL free H2O per 24 hrs. EN regimen will meet ~90% estimated daily energy needs and ~47% estimated daily protein needs 3) Initiate Nephro-Susan @ 1 tb qd 4) Advance to 60g CCHO renal standard diet when medically feasible, pending [employer] approval 5) Follow-up with nephrology, cardiology, and pulmonology 6) Continue to monitor I&O, labs, and skin integrity Expected Outcomes/Goals: 1) patient to receive nutrition support within 7 days of NPO status 2) labs to improve 3) wound to improve 4) patient to be extubated and diet to advance 5) f/u in 2-3 days Plan discussed with: SHAUN Pérez MD June 23, 2024 22:32
[2024-06-24] VITALS (104 sets, daily range): BP systolic 110–156; BP diastolic 35–73; PULSE 58–95; RESP 9–32; TEMP 98.3–99.3; O2SAT 90–99
[2024-06-24 04:17] LABS: Basophils # (auto) 0 10 ^3/uL (0-0.2); Basophils % (auto) 0.5 % (0.0-2.0); Eosinophils # (auto) 0.2 10 ^3/uL (0-0.8); Eosinophils % (auto) 4.1 % (0.0-7.0); Hematocrit 26.9 % (36.0-46.0); Hemoglobin 9.1 g/dL (12.2-16.2); Lymphocytes # (auto) 0.5 10 ^3/uL (0.4-5.4); Lymphocytes % (auto) 8.9 % (10.0-50.0); Mean Corpuscular Hgb Conc. 33.9 g/dL (32.0-36.0); Mean Corpuscular Volume 88.3 fL (80.0-100.0); Monocytes # (auto) 0.3 10 ^3/uL (0-1.3); Monocytes % (auto) 5.8 % (0.0-12.0); Neutrophils # (auto) 4.8 10 ^3/uL (1.6-8.6); Neutrophils % (auto) 80.7 % (37.0-80.0); Nucleated Red Blood Cells % 0.1 %; Platelet Count (auto) 105 10^3/uL (140-450); Red Blood Cells 3.05 10^6/uL (4.0-5.20); Red Cell Distribution Width 16.9 % (11.8-14.3); White Blood Cell 5.9 10^3/uL (4.4-10.8)
[2024-06-24 04:31] LABS: Alanine Aminotransferase 12 U/L (7-40); Albumin 3.8 g/dL (3.2-4.8); Alkaline Phosphatase 111 U/L (46-116); Anion Gap 13 (5-15); Aspartate Aminotransferase 23 U/L (13-40); BUN/Creatinine Ratio 7.8 (10.0-20.0); Carbon Dioxide 27 mmol/L (20-31); Chloride 100 mmol/L (98-107); Glucose 79 mg/dL (74-106); Potassium 3.6 mmol/L (3.5-5.1); Sodium 140 mmol/L (136-145); Total Protein 6.2 g/dL (5.7-8.2)
[2024-06-24 04:32] LABS: Bilirubin, Total 0.5 mg/dL (0.2-1.0)
[2024-06-24 04:41] LABS: Blood Urea Nitrogen 45 mg/dL (9-23); Calcium 10.4 mg/dL (8.7-10.4)
--- NOTE | 2024-06-24 05:26 | DVH ---
EXAM: XR Chest, 1 View CLINICAL INDICATION: PATIENT INTUBATED TECHNIQUE: Frontal view of the chest. COMPARISON: XY CHEST PORTABLE on DOS: 06/23/24, XY CHEST XRAY 1 VIEW on DOS: 06/22/24, XY CHEST PORTABL E on DOS: 06/21/24, XY CHEST PORTABLE on DOS: 06/21/24, XY CHEST PORTABLE on DOS: 06/20/24 FINDINGS: LUNGS AND PLEURAL SPACES: See below. HEART: Cardiomegaly with mild congestion. MEDIASTINUM: Unremarkable. Normal mediastinal contour. BONES/JOINTS: Unremarkable. No acute fracture. TUBES, LINES AND DEVICES: Right internal jugular central venous catheter tip in the superior vena c neeta. The endotracheal tube (ETT) is in satisfactory position. Left internal jugular central venous catheter tip in the superior vena cava. Enteric tube tip in the stomach. OTHER FINDINGS: . . . IMPRESSION: Cardiomegaly with mild congestion.
[2024-06-24] MEDS: SODIUM CHL 0.9% 1000 ML BAG XX ONE ×2 (09:03→09:15)
--- NOTE | 2024-06-24 10:12 | DVHPN2 ---
Progress Note - Dictate Date Seen: June 24, 2024 Medical Necessity Reason Pt with a Central, PICC or Fol: Yes The following are medically ne: Eagle Catheter Reason for eagle catheter: Strict I&O Subjective Ms. Dawkins is a 63 years old female with a history of chronic kidney failure on hemodialysis, recent spine fracture, she came to the [facility] on 06/10/2024 with a chief complaint of back pain. I have seen and examined the patient, I have discussed with her nurse, she failed CPAP trial yesterday, she is awake, physically stronger, she moves the arms and legs, she was does not pay attention to me during this follow-up evaluation, but she followed her nurse earlier this morning She has been off sedation since 12:00 p.m. on 06/17/2024 Blood culture, 06/11/2024: Urinalysis, 06/11/2024: Negative Plasma alcohol, 06/10/2024: <3 ABG, 06/08/2024: Respiratory alkalosis WBC/HB/PLT/MCV, 06/11/2024: 1.7/10.5/114/89.3, 06/15/2024: 2.2/9.7/124/87.7, 06/16/2024: 0.5/10.3/136/86.5, 06/17/2024: 7.2/9.9/152/87.3 Na, 06/10/2024: 136, 06/12/2024: 133, 06/14/2024: 125, 06/15/24: 130 BUN/CR, 05/2624: 47/7.51, 06/15/2024: 31/5.74 HGB A1c, 06/11/2024: 4.3 Liver function tests, 06/10/2024: Unremarkable TG/HDL/LDL/HDL, 06/11/2024: 63/106/47/40 Echocardiogram, 06/11/2024: LVEF is normal 50-55% Rv function normal Moderate pericardial effusion with no evidence of tamponade Large left pleural effusion Chest x-ray, 06/11/2024: Lines and tubes in satisfactory position. No significant interval change Chest x-ray, 06/15/2024: 1. Mild diffuse increased prominence of the pulmonary vasculature. 2. Lines and tubes unchanged CT head, 06/10/2024: Subacute stroke involving the left frontal lobe white matter which also may involve the left temporal lobe as well can not rule out acute features CT head, neck, 06/10/2024: No significant vascular stenosis involving the head / neck. Moderate occlusion of the bilateral V4 segments vertebral arteries due to calcified and noncalcified plaques CT head 06/21/24: 1. No acute intracranial hemorrhage 2. Stable left parietal infarct unchanged from 06/10/2024. CT T-spine, 06/10/2024: No evidence of fracture in the thoracic spine CT lumbar spine, 06/10/2024: No acute fracture. Grade 1 anterolisthesis at L4-L5 with bilateral pars defects. Moderate to severe endplate degenerative changes at L4-L5, T12-L1, and L5-S1. There is severe spinal canal narrowing at L4-L5. Partially visualized moderate bilateral pleural effusions. Mild diffuse anasarca MRI head, 06/12/2024: 1. There is no acute intracranial process. 2. Chronic infarct in the superolateral left frontal lobe. (I saw another possible chronic stroke: Images 16) MRI lumbar spine, 06/19/2024: Severe spinal canal stenosis with severe bilateral lateral recess narrowing at L3-L4. Severe bilateral neural foramina stenosis at L3-L4 with moderate right and severe left-sided neural foramina stenosis at L4- L5. Grade 1 anterolisthesis of L4 on L5. vital signs Vital Sign Date Time Temp Pulse Resp B/P (MAP) Pulse Ox O2 Delivery O2 Flow Rate FiO2 06/24/24 09:10 91 150/60 06/24/24 09:00 21 94 06/24/24 08:12 30 06/24/24 08:00 Mechanical Ventilator+ 06/24/24 08:00 98.4 98.4 Total Intake and Output 06/23/24 06/23/24 06/24/24 15:00 23:00 07:00 Intake Total 364.56 ml 186.18 ml 301.56 ml Output Total 0 ml Balance 364.56 ml 186.18 ml 301.56 ml medications Current Medications Medications Dose Ordered Sig/Eric Route Start Time Stop Time Status Last Admin Dose Admin Ondansetron HCl 4 mg Q4HP PRN IV 06/11/24 02:00 Nitroglycerin 0.4 mg Q5MINP PRN SL 06/11/24 02:00 Aspirin 81 mg DAILY PO 06/11/24 10:00 06/23/24 08:56 81 MG Albuterol 2.5 mg Q4HPRN PRN NEB 06/11/24 02:00 06/23/24 12:05 2.5 MG Ipratropium [place] 0.5 mg Q4HPRN PRN NEB 06/11/24 02:00 06/23/24 12:05 0.5 MG Heparin Sodium (Porcine) 5,000 units Q12HR SC 06/11/24 10:00 06/23/24 21:32 5,000 UNITS Pantoprazole Sodium 40 mg DAILY IV 06/11/24 10:00 06/22/24 08:24 40 MG Ceftriaxone Sodium 50 ml @ 100 mls/hr DAILY@09 IV 06/13/24 09:00 06/23/24 08:56 100 MLS/HR Acetaminophen 650 mg Q6HP PRN GT 06/11/24 23:45 06/12/24 02:48 650 MG Nicardipine HCl 250 ml @ 50 mls/hr Q5H IV 06/13/24 14:45 UNV Enteral Nutritional Formula 1,000 ml 25ML/HR GT 06/15/24 13:30 06/20/24 10:08 1,000 ML Hydralazine HCl 10 mg Q6HPRN PRN IV 06/17/24 00:00 06/23/24 06:36 10 MG Nicardipine HCl 50 mg/Sodium Chloride 250 ml @ 25 mls/hr Q10H IV 06/18/24 12:00 06/24/24 09:10 25 MLS/HR Morphine Sulfate 2 mg Q4HPRN PRN IV 06/19/24 15:45 06/23/24 08:37 2 MG Diagnostic Test (Pha) 1 strip Q6HR 06/20/24 00:00 06/24/24 05:31 1 STRIP Insulin Human Regular Q6HR SC 06/20/24 00:00 06/22/24 16:56 2 UNITS Dextrose 50 ml UD PRN IV 06/19/24 18:15 Dopamine HCl/ Dextrose 250 ml @ 15.544 mls/ hr Q16H5M IV 06/21/24 11:00 UNV Metoprolol Tartrate 50 mg BID PO 06/23/24 22:00 06/23/24 21:31 50 MG Amlodipine Besylate 10 mg DAILY PO 06/24/24 10:00 Vancomycin HCl 0 ml @ 0 mls/hr UD IV 06/23/24 20:45 objective The patient is well-nourished and well-developed with no distress. The patient is intubated MENTAL STATUS: Subjective CRANIAL NERVES: Pupils are equal, round and reactive. There are conjugated eye movement. No signs of facial weakness. There are gagging or coughing reflexes SENSATION: Okay to light touch and pinprick MOTOR: Normal tone in the upper and lower extremity. Normal muscle bulk. No fasciculations. Subjective REFLEXES: Deep tendon reflexes are symmetrical. No pathological reflexes. CEREBELLAR/COORDINATION: Deferred GAIT/STATION: deferred. laboratory and microbiology Laboratory Tests 06/24/24 03:00 Test 06/24/24 03:00 Range/Units Serum Glucose 79 74-106 mg/dL Problem List 2 chronic strokes in the left hemisphere per MRI and CT scan, asymptomatic Acute low back pain to rule out diskitis Acute respiratory failure Pancytopenia, better Hyponatremia Hypokalemia Chronic kidney failure Anisocoria noticed on 06/18/2024, uncertain clinical significance Looks improving Assessment/Plan Monitoring Supportive treatment ICU care Follow-up labs Stabilize vitals Respiratory support/vent management IV antibiotics Aspirin 81 mg daily Lipitor 40 mg daily DVT prophylaxis GI prophylaxis Consult hematology Infectious disease on case Cardiology on case Pulmonary on case Nephrology on case CPAP trial/extubation More recommendation per clinical course This medical document was created using an electronic medical record system with [employer] computerized dictation system. Although this document has been carefully reviewed, there may still be some phonetic and typographical errors. These areas are purely typographical due to imperfections of the software programs, and do not reflect any compromise in the patient's medical care Prognosis guarded Dietary Evaluation Review Comments: 1) If patient remains NPO > 7 days, consider EN/TPN to meet at least 75% estimated needs 2) If GI route is preferred, consider Nepro @ 25 mL/hr goal rate as tolerated. EN regimen will provide 1080 kcals, 49g Pro, and 447 mL free H2O per 24 hrs. EN regimen will meet ~90% estimated daily energy needs and ~47% estimated daily protein needs 3) Initiate Nephro-Susan @ 1 tb qd 4) Advance to 60g CCHO renal standard diet when medically feasible, pending [facility] approval 5) Follow-up with nephrology, cardiology, and pulmonology 6) Continue to monitor I&O, labs, and skin integrity Expected Outcomes/Goals: 1) patient to receive nutrition support within 7 days of NPO status 2) labs to improve 3) wound to improve 4) patient to be extubated and diet to advance 5) f/u in 2-3 days Plan discussed with: Other FORD ORTA MD June 24, 2024 10:11
[2024-06-24] MEDS: amLODIPine BESYLATE 5 MG TAB PO SCH (10:58)
--- NOTE | 2024-06-24 12:04 | DVHPN2 ---
Progress Note - Dictate Date Seen: June 24, 2024 Medical Necessity Reason Pt with a Central, PICC or Fol: Yes The following are medically ne: Eagle Catheter Reason for eagle catheter: Strict I&O Subjective Patient is able to tolerate CPAP trials for 1-2 hours after the she gets tired and becomes tachypneic. vital signs Vital Sign Date Time Temp Pulse Resp B/P (MAP) Pulse Ox O2 Delivery O2 Flow Rate FiO2 06/24/24 11:45 80 25 141/54 (83) 94 06/24/24 10:15 30 06/24/24 10:00 Mechanical Ventilator+ 06/24/24 08:00 98.4 98.4 Total Intake and Output 06/23/24 06/23/24 06/24/24 15:00 23:00 07:00 Intake Total 364.56 ml 186.18 ml 301.56 ml Output Total 0 ml Balance 364.56 ml 186.18 ml 301.56 ml medications Current Medications Medications Dose Ordered Sig/Eric Route Start Time Stop Time Status Last Admin Dose Admin Ondansetron HCl 4 mg Q4HP PRN IV 06/11/24 02:00 Nitroglycerin 0.4 mg Q5MINP PRN SL 06/11/24 02:00 Aspirin 81 mg DAILY PO 06/11/24 10:00 06/24/24 10:59 81 MG Albuterol 2.5 mg Q4HPRN PRN NEB 06/11/24 02:00 06/23/24 12:05 2.5 MG Ipratropium [place] 0.5 mg Q4HPRN PRN NEB 06/11/24 02:00 06/23/24 12:05 0.5 MG Heparin Sodium (Porcine) 5,000 units Q12HR SC 06/11/24 10:00 06/23/24 21:32 5,000 UNITS Pantoprazole Sodium 40 mg DAILY IV 06/11/24 10:00 06/24/24 10:57 40 MG Ceftriaxone Sodium 50 ml @ 100 mls/hr DAILY@09 IV 06/13/24 09:00 06/24/24 10:57 100 MLS/HR Acetaminophen 650 mg Q6HP PRN GT 06/11/24 23:45 06/12/24 02:48 650 MG Nicardipine HCl 250 ml @ 50 mls/hr Q5H IV 06/13/24 14:45 UNV Enteral Nutritional Formula 1,000 ml 25ML/HR GT 06/15/24 13:30 06/20/24 10:08 1,000 ML Hydralazine HCl 10 mg Q6HPRN PRN IV 06/17/24 00:00 06/23/24 06:36 10 MG Nicardipine HCl 50 mg/Sodium Chloride 250 ml @ 25 mls/hr Q10H IV 06/18/24 12:00 06/24/24 09:10 25 MLS/HR Morphine Sulfate 2 mg Q4HPRN PRN IV 06/19/24 15:45 06/23/24 08:37 2 MG Diagnostic Test (Pha) 1 strip Q6HR 06/20/24 00:00 06/24/24 11:47 1 STRIP Insulin Human Regular Q6HR SC 06/20/24 00:00 06/22/24 16:56 2 UNITS Dextrose 50 ml UD PRN IV 06/19/24 18:15 Dopamine HCl/ Dextrose 250 ml @ 15.544 mls/ hr Q16H5M IV 06/21/24 11:00 UNV Metoprolol Tartrate 50 mg BID PO 06/23/24 22:00 06/24/24 10:58 50 MG Amlodipine Besylate 10 mg DAILY PO 06/24/24 10:00 06/24/24 10:58 10 MG Vancomycin HCl 0 ml @ 0 mls/hr UD IV 06/23/24 20:45 objective General Appearance: intubated and sedated HEENT: ET tube Respiratory: Other (Intubated on mechanical ventilator) Cardiovascular: Regular rate, Normal S1, Normal S2 Abdominal: Normal bowel sounds, Soft, No tenderness Extremities: Other (BLE pitting edema 2+) Skin: No rashes Neuro: Other (Altered non arousable) Psych/Mental Status: Other (Unable to assess) laboratory and microbiology Laboratory Tests 06/24/24 03:00 Test 06/24/24 03:00 Range/Units Serum Glucose 79 74-106 mg/dL Assessment/Plan Patient is a 63-year-old female presents to the hospital with: Leucopenia resolved Vertebral Discitis subacute CVA Acute encephalopathy Acute hypoxic respiratory S/P intubation on mechanical ventilator ESRD on HD Fluid overload Hypertensive emergency Hx T12 compression fracture Recommendations: WBC normal she is off sedation and are trying to extubate her; Patient is able to tolerate CPAP trials for 1-2 hours after the she gets tired and becomes tachypneic reviewed CXR personally, some bibasilar infiltrates but seems stable. Vancomycin restarted on 06/23 - Ongoing MRI lumbar spine done 06/19 is wo contrast which is not very ideal for infection. there is no comment about discitis or phlegmon. however, MRI in [facility] on 05/22 commented about discitis. would consider resuming and completing the course for now since she already has been on antibiotics since 05/22. tagged wbc scan may be a better study since she on HD, mri w contrast might be difficult. reviewed [facility] records in detail: She had low wbc from 03/23/2024 with 3.4 with intermittent 1.8 and she has been admitted 2-3 times and wbc is in same range. no work up done She had mri spine with on 05/22 shows hypointense T1 and hyperintense T2 at L3-L4 concerning for discitis osteomyelitis. Hyperintense T2 signal along epidural space L3-L4 for 5mm AP diameter concerning for Phlegmon. ID Dr Carlisle saw the patient and recommended IV Vancomycin for 6 weeks. There is no positive blood cultures or biopsy done. His notes on 05/23 recommended 6 weeks of IV vancomycin ( switched from ceftriaxone for low wbc). recommend Continuing IV Vancomycin/ Ceftriaxone for 6 weeks since leucopenia was present in prior admissions too, its unlikely due to Vancomycin discussed with nephrology, reviewed old labs, back in 2022 also her wbc was in 3k. unsure if she had work up done platelets were in 200 in 2023 but later its been low too MRI showed Severe spinal canal stenosis with severe bilateral lateral recess narrowing at L3-L4. Severe bilateral neural foramina stenosis at L3-L4 with moderate right and severe left-sided neural foramina stenosis at L4-L5. Grade 1 anterolisthesis of L4 on L5. Continue IV Ceftriaxone for now; v Monitor Vancomycin Trough, on HD 06/16, Vancomycin Random is 27 on MV Antibiotic status: Ceftriaxone IV [Started on 06/11 - Ongoing] Vancomycin IV [Restarted on 06/23 - Ongoing] 06/11, Respiratory culture preliminary showed Normal Oropharyngeal Trish 06/11, Blood culture showed no growth 06/13, MRSA screening came back negative Review of Imagin/24, Chest x-ray showed Cardiomegaly with mild congestion. Prognosis guarded plan discussed with attending physician Thank you for consult. Dietary Evaluation Review Comments: 1) If patient remains NPO > 7 days, consider EN/TPN to meet at least 75% estimated needs 2) If GI route is preferred, consider Nepro @ 25 mL/hr goal rate as tolerated. EN regimen will provide 1080 kcals, 49g Pro, and 447 mL free H2O per 24 hrs. EN regimen will meet ~90% estimated daily energy needs and ~47% estimated daily protein needs 3) Initiate Nephro-Susan @ 1 tb qd 4) Advance to 60g [facility] renal standard diet when medically feasible, pending [employer] approval 5) Follow-up with nephrology, cardiology, and pulmonology 6) Continue to monitor I&O, labs, and skin integrity Expected Outcomes/Goals: 1) patient to receive nutrition support within 7 days of NPO status 2) labs to improve 3) wound to improve 4) patient to be extubated and diet to advance 5) f/u in 2-3 days Plan discussed with: GONZÁLEZ Vidal MD June 24, 2024 12:04
--- NOTE | 2024-06-24 12:29 | DVHPN2 ---
Progress Note - Dictate Date Seen: June 24, 2024 Medical Necessity Reason Pt with a Central, PICC or Fol: Yes The following are medically ne: Eagle Catheter Reason for eagle catheter: Strict I&O Subjective Patient is awake and alert follows simple commands. Still remains on ventilator. Apparently able to tolerate CPAP trials for 1-2 hours after the she gets tired and becomes tachypneic. Currently on Precedex. vital signs Vital Sign Date Time Temp Pulse Resp B/P (MAP) Pulse Ox O2 Delivery O2 Flow Rate FiO2 06/24/24 12:11 75 23 142/53 (82) 94 30 06/24/24 10:00 Mechanical Ventilator+ 06/24/24 08:00 98.4 98.4 Total Intake and Output 06/23/24 06/23/24 06/24/24 15:00 23:00 07:00 Intake Total 364.56 ml 186.18 ml 301.56 ml Output Total 0 ml Balance 364.56 ml 186.18 ml 301.56 ml medications Current Medications Medications Dose Ordered Sig/Eric Route Start Time Stop Time Status Last Admin Dose Admin Ondansetron HCl 4 mg Q4HP PRN IV 06/11/24 02:00 Nitroglycerin 0.4 mg Q5MINP PRN SL 06/11/24 02:00 Aspirin 81 mg DAILY PO 06/11/24 10:00 06/24/24 10:59 81 MG Albuterol 2.5 mg Q4HPRN PRN NEB 06/11/24 02:00 06/23/24 12:05 2.5 MG Ipratropium [place] 0.5 mg Q4HPRN PRN NEB 06/11/24 02:00 06/23/24 12:05 0.5 MG Heparin Sodium (Porcine) 5,000 units Q12HR SC 06/11/24 10:00 06/23/24 21:32 5,000 UNITS Pantoprazole Sodium 40 mg DAILY IV 06/11/24 10:00 06/24/24 10:57 40 MG Ceftriaxone Sodium 50 ml @ 100 mls/hr DAILY@09 IV 06/13/24 09:00 06/24/24 10:57 100 MLS/HR Acetaminophen 650 mg Q6HP PRN GT 06/11/24 23:45 06/12/24 02:48 650 MG Nicardipine HCl 250 ml @ 50 mls/hr Q5H IV 06/13/24 14:45 UNV Enteral Nutritional Formula 1,000 ml 25ML/HR GT 06/15/24 13:30 06/20/24 10:08 1,000 ML Hydralazine HCl 10 mg Q6HPRN PRN IV 06/17/24 00:00 06/23/24 06:36 10 MG Nicardipine HCl 50 mg/Sodium Chloride 250 ml @ 25 mls/hr Q10H IV 06/18/24 12:00 06/24/24 09:10 25 MLS/HR Morphine Sulfate 2 mg Q4HPRN PRN IV 06/19/24 15:45 06/23/24 08:37 2 MG Diagnostic Test (Pha) 1 strip Q6HR 06/20/24 00:00 06/24/24 11:47 1 STRIP Insulin Human Regular Q6HR SC 06/20/24 00:00 06/22/24 16:56 2 UNITS Dextrose 50 ml UD PRN IV 06/19/24 18:15 Dopamine HCl/ Dextrose 250 ml @ 15.544 mls/ hr Q16H5M IV 06/21/24 11:00 UNV Metoprolol Tartrate 50 mg BID PO 06/23/24 22:00 06/24/24 10:58 50 MG Amlodipine Besylate 10 mg DAILY PO 06/24/24 10:00 06/24/24 10:58 10 MG Vancomycin HCl 0 ml @ 0 mls/hr UD IV 06/23/24 20:45 objective Opens her eyes calling her name. HEENT neck supple no JVD pupils equal round react to light. Lungs fair air movement without rales wheezes. Extremities small bruise noted on right posterior thigh region. laboratory and microbiology Laboratory Tests 06/24/24 03:00 Test 06/24/24 03:00 Range/Units Serum Glucose 79 74-106 mg/dL Assessment/Plan 1. Acute hypoxic respiratory failure requiring intubation with mechanical ventilation secondary to metabolic encephalopathy 2. 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 Hypertensive emergency with the end-organ involvement , off the nicardipine drip 5. End-stage renal disease on hemodialysis received hemodialysis on06/14 6. Coronary artery disease We will DC aspirin and heparin given the low platelets and small bruising on the posterior thigh. Continue SCDs for DVT prophylaxis. Proceed with CPAP trials as she is undergoing and an it is safe extubate per Pulmonary recommendations. Meantime continue adjusted blood pressure medications. Otherwise no changes to present management. Discussed with the nurse at bedside regarding care plan. Dietary Evaluation Review Comments: 1) If patient remains NPO > 7 days, consider EN/TPN to meet at least 75% estimated needs 2) If GI route is preferred, consider Nepro @ 25 mL/hr goal rate as tolerated. EN regimen will provide 1080 kcals, 49g Pro, and 447 mL free H2O per 24 hrs. EN regimen will meet ~90% estimated daily energy needs and ~47% estimated daily protein needs 3) Initiate Nephro-Susan @ 1 tb qd 4) Advance to 60g CCHO renal standard diet when medically feasible, pending [employer] approval 5) Follow-up with nephrology, cardiology, and pulmonology 6) Continue to monitor I&O, labs, and skin integrity Expected Outcomes/Goals: 1) patient to receive nutrition support within 7 days of NPO status 2) labs to improve 3) wound to improve 4) patient to be extubated and diet to advance 5) f/u in 2-3 days Plan discussed with: Other BRIANNE CADE MD June 24, 2024 12:29
--- NOTE | 2024-06-24 15:02 | DVHPN2 ---
Progress Note - Dictate Date Seen: June 24, 2024 Medical Necessity Reason Pt with a Central, PICC or Fol: Yes The following are medically ne: Eagle Catheter Reason for eagle catheter: Strict I&O Subjective Patient CPAP trial today she was not extubated. vital signs Vital Sign Date Time Temp Pulse Resp B/P (MAP) Pulse Ox O2 Delivery O2 Flow Rate FiO2 06/24/24 14:45 86 17 139/53 (81) 94 06/24/24 14:00 30 06/24/24 14:00 Mechanical Ventilator+ 06/24/24 12:00 98.6 98.6 Total Intake and Output 06/23/24 06/23/24 06/24/24 15:00 23:00 07:00 Intake Total 364.56 ml 186.18 ml 301.56 ml Output Total 0 ml Balance 364.56 ml 186.18 ml 301.56 ml medications Current Medications Medications Dose Ordered Sig/Eric Route Start Time Stop Time Status Last Admin Dose Admin Ondansetron HCl 4 mg Q4HP PRN IV 06/11/24 02:00 Nitroglycerin 0.4 mg Q5MINP PRN SL 06/11/24 02:00 Albuterol 2.5 mg Q4HPRN PRN NEB 06/11/24 02:00 06/23/24 12:05 2.5 MG Ipratropium [place] 0.5 mg Q4HPRN PRN NEB 06/11/24 02:00 06/23/24 12:05 0.5 MG Pantoprazole Sodium 40 mg DAILY IV 06/11/24 10:00 06/24/24 10:57 40 MG Ceftriaxone Sodium 50 ml @ 100 mls/hr DAILY@09 IV 06/13/24 09:00 06/24/24 10:57 100 MLS/HR Acetaminophen 650 mg Q6HP PRN GT 06/11/24 23:45 06/12/24 02:48 650 MG Nicardipine HCl 250 ml @ 50 mls/hr Q5H IV 06/13/24 14:45 UNV Enteral Nutritional Formula 1,000 ml 25ML/HR GT 06/15/24 13:30 06/20/24 10:08 1,000 ML Hydralazine HCl 10 mg Q6HPRN PRN IV 06/17/24 00:00 06/23/24 06:36 10 MG Nicardipine HCl 50 mg/Sodium Chloride 250 ml @ 25 mls/hr Q10H IV 06/18/24 12:00 06/24/24 09:10 25 MLS/HR Morphine Sulfate 2 mg Q4HPRN PRN IV 06/19/24 15:45 06/23/24 08:37 2 MG Diagnostic Test (Pha) 1 strip Q6HR 06/20/24 00:00 06/24/24 11:47 1 STRIP Insulin Human Regular Q6HR SC 06/20/24 00:00 06/22/24 16:56 2 UNITS Dextrose 50 ml UD PRN IV 06/19/24 18:15 Dopamine HCl/ Dextrose 250 ml @ 15.544 mls/ hr Q16H5M IV 06/21/24 11:00 UNV Metoprolol Tartrate 50 mg BID PO 06/23/24 22:00 06/24/24 10:58 50 MG Amlodipine Besylate 10 mg DAILY PO 06/24/24 10:00 06/24/24 10:58 10 MG Vancomycin HCl 0 ml @ 0 mls/hr UD IV 06/23/24 20:45 objective HEENT: ET tube in place Pulmonary: Diminished lung sounds bilaterally Cardiovascular S1-S2, no S3 or S4 Abdomen: Bowel sounds positive, soft no rebound tenderness Skin: No rash Neurological: Obtunded, poor purposeful movements. Hemodialysis access right upper chest CVC laboratory and microbiology Laboratory Tests 06/24/24 03:00 Test 06/24/24 03:00 Range/Units Serum Glucose 79 74-106 mg/dL Assessment/Plan Assessment: End-stage renal disease on HD Hypokalemia Anemia of renal disease. Acute hypoxic Respiratory failure, on mechanical ventilation HTN urgency Subacute stroke. T-spine fracture. Leukopenia Plan: Plan for hemodialysis . If staffing allows we will do extra session tomorrow in anticipation to extubation on amlodipine On metoprolol 50 mg twice a day. on Precedex daily BNP ID consult appreciated Continue IV antibiotics ANANTH post HD as needed, goal Hb: 10-11 g/dl Thank you very much for allowing us to participate in the care of this patient. Dietary Evaluation Review Comments: 1) If patient remains NPO > 7 days, consider EN/TPN to meet at least 75% estimated needs 2) If GI route is preferred, consider Nepro @ 25 mL/hr goal rate as tolerated. EN regimen will provide 1080 kcals, 49g Pro, and 447 mL free H2O per 24 hrs. EN regimen will meet ~90% estimated daily energy needs and ~47% estimated daily protein needs 3) Initiate Nephro-Susan @ 1 tb qd 4) Advance to 60g CCHO renal standard diet when medically feasible, pending [facility] approval 5) Follow-up with nephrology, cardiology, and pulmonology 6) Continue to monitor I&O, labs, and skin integrity Expected Outcomes/Goals: 1) patient to receive nutrition support within 7 days of NPO status 2) labs to improve 3) wound to improve 4) patient to be extubated and diet to advance 5) f/u in 2-3 days Plan discussed with: Patient JUAN R MARIEE MD June 24, 2024 15:02
[2024-06-24] MEDS: EPOETIN ALFA-EPBX 4,000 UNIT/ML VIAL SC ONE (20:50)
--- NOTE | 2024-06-24 21:50 | DVHPN2 ---
Progress Note - Dictate Date Seen: June 24, 2024 Medical Necessity Reason Pt with a Central, PICC or Fol: Yes The following are medically ne: Eagle Catheter Reason for eagle catheter: Strict I&O Subjective Patient seen and examined at bedside. Intubated on mechanical ventilator. Overnight events reviewed. vital signs Vital Sign Date Time Temp Pulse Resp B/P (MAP) Pulse Ox O2 Delivery O2 Flow Rate FiO2 06/24/24 20:50 74 137/47 06/24/24 20:09 85 06/24/24 20:00 98 30 06/24/24 18:00 Mechanical Ventilator+ 06/24/24 12:00 98.6 98.6 Total Intake and Output 06/23/24 06/23/24 06/24/24 15:00 23:00 07:00 Intake Total 364.56 ml 186.18 ml 301.56 ml Output Total 0 ml Balance 364.56 ml 186.18 ml 301.56 ml medications Current Medications Medications Dose Ordered Sig/Eric Route Start Time Stop Time Status Last Admin Dose Admin Ondansetron HCl 4 mg Q4HP PRN IV 06/11/24 02:00 Nitroglycerin 0.4 mg Q5MINP PRN SL 06/11/24 02:00 Albuterol 2.5 mg Q4HPRN PRN NEB 06/11/24 02:00 06/24/24 19:25 2.5 MG Ipratropium [place] 0.5 mg Q4HPRN PRN NEB 06/11/24 02:00 06/23/24 12:05 0.5 MG Pantoprazole Sodium 40 mg DAILY IV 06/11/24 10:00 06/24/24 10:57 40 MG Ceftriaxone Sodium 50 ml @ 100 mls/hr DAILY@09 IV 06/13/24 09:00 06/24/24 10:57 100 MLS/HR Acetaminophen 650 mg Q6HP PRN GT 06/11/24 23:45 06/12/24 02:48 650 MG Nicardipine HCl 250 ml @ 50 mls/hr Q5H IV 06/13/24 14:45 UNV Enteral Nutritional Formula 1,000 ml 25ML/HR GT 06/15/24 13:30 06/24/24 20:55 1,000 ML Hydralazine HCl 10 mg Q6HPRN PRN IV 06/17/24 00:00 06/23/24 06:36 10 MG Nicardipine HCl 50 mg/Sodium Chloride 250 ml @ 25 mls/hr Q10H IV 06/18/24 12:00 06/24/24 19:46 25 MLS/HR Morphine Sulfate 2 mg Q4HPRN PRN IV 06/19/24 15:45 06/24/24 19:39 2 MG Diagnostic Test (Pha) 1 strip Q6HR 06/20/24 00:00 06/24/24 18:26 1 STRIP Insulin Human Regular Q6HR SC 06/20/24 00:00 06/22/24 16:56 2 UNITS Dextrose 50 ml UD PRN IV 06/19/24 18:15 Dopamine HCl/ Dextrose 250 ml @ 15.544 mls/ hr Q16H5M IV 06/21/24 11:00 UNV Metoprolol Tartrate 50 mg BID PO 06/23/24 22:00 06/24/24 20:50 50 MG Amlodipine Besylate 10 mg DAILY PO 06/24/24 10:00 06/24/24 10:58 10 MG Vancomycin HCl 0 ml @ 0 mls/hr UD IV 06/23/24 20:45 objective Gen.: Patient lying in bed in medical ICU. Intubated on mechanical ventilator. Head: Normocephalic, atraumatic. Eyes: PERRLA. Ears: Normal external anatomy. Throat: Endotracheal tube and orogastric tube in place. Neck: Supple, trachea midline. Chest: Transmitted breath sounds bilaterally. Decreased air entry bilaterally. No wheezing. Bibasilar crackles. Cardiovascular: Positive S1, positive S2. Regular rate and rhythm. Abdomen: Positive bowel sounds in all 4 quadrants. Soft, nontender, nondistended. : Eagle in place. Normal external genitalia. Rectal: Deferred. Skin: Warm, dry. Intact. Extremities: 2+ radial pulses bilaterally. No lower extremity edema. Neuro: Off sedation laboratory and microbiology Laboratory Tests 06/24/24 03:00 Test 06/24/24 03:00 Range/Units Serum Glucose 79 74-106 mg/dL Assessment/Plan Impression: Acute hypoxic respiratory failure On mechanical ventilator Acute CVA Acute encephalopathy ESRD, on hemodialysis Pulmonary edema Shock Obesity BMI 33.3 Events: Remains on mechanical ventilation On AC mode; RR 18, VT 450, PEEP 5, FiO2 30% CXR demonstrates cardiomegaly with mild congestion. ET tube in place. Status post hemodialysis, 3.5 liters removed Nephrology recs appreciated. Patient tolerated CPAP for 40 minutes Remains off sedation On Precedex drip. Continue abx Continue bronchodilators Nicardipine drip for BP control Protonix for GI prophylaxis Resume tube feeds for nutrition Continue daily CPAP. HD per Nephrology Monitor renal function Monitor electrolytes. Supplement as necessary. Monitor ins and outs. Labs and imaging reviewed Plan: s/p intubation on mechanical ventilator. On AC mode; RR 18, VT 450, PEEP 5, FiO2 30% Titrate FIO2 to keep O2 saturation above 90%. VAP bundle. Daily ABG and CXR while intubated Off sedation On nicardipine drip for blood pressure Continue antibiotics. F/u cultures. Continue bronchodilators Accu-Cheks, ISS PRN Echo reviewed Cardiology recs appreciated Pressors as necessary for hemodynamic support Titrate to keep mean arterial pressure greater than 65 mmHg. HD per Nephrology Monitor renal function Monitor electrolytes. Supplement as necessary. Monitor ins and outs. Maintain euvolemia. GI prophylaxis. DVT prophylaxis. Prognosis: Poor given patient's multiple co-morbidities. Condition: Critical Rest of plan per hospitalist and other consultants. A total of 35 minutes of critical care time was spent reviewing the patient record, examining the patient, making a diagnostic and therapeutic plan, discussing this plan with the medical personnel, following up on diagnostic studies and following the patient for clinical stability excluding any and all procedures. At least 50% of this time was spent in direct, [id number] contact. Thank you, LISA Garcia, for allowing me to participate in this patient's care. Further recommendations will depend on the patient's clinical course. Please do not hesitate to contact me if you have any questions or concerns. This medical document was created using an electronic medical record system with [employer] dictation system. Although these documentations are being carefully reviewed, there may still be some phonetic and typographical changes. The errors are purely typographical, due to imperfection on the software program, and do not reflect any compromise in the patient's medical care. Dietary Evaluation Review Comments: 1) If patient remains NPO > 7 days, consider EN/TPN to meet at least 75% estimated needs 2) If GI route is preferred, consider Nepro @ 25 mL/hr goal rate as tolerated. EN regimen will provide 1080 kcals, 49g Pro, and 447 mL free H2O per 24 hrs. EN regimen will meet ~90% estimated daily energy needs and ~47% estimated daily protein needs 3) Initiate Nephro-Susan @ 1 tb qd 4) Advance to 60g CCHO renal standard diet when medically feasible, pending SPECIAL EDUCATION PARAEDUCATOR approval 5) Follow-up with nephrology, cardiology, and pulmonology 6) Continue to monitor I&O, labs, and skin integrity Expected Outcomes/Goals: 1) patient to receive nutrition support within 7 days of NPO status 2) labs to improve 3) wound to improve 4) patient to be extubated and diet to advance 5) f/u in 2-3 days Plan discussed with: Other (RN Carol Ann) Critical Care Time(min): 35 NAE BELLAMY MD June 24, 2024 21:50
--- NOTE | 2024-06-24 23:35 | DVHPN2 ---
Progress Note - Dictate Date Seen: June 24, 2024 Medical Necessity Reason Pt with a Central, PICC or Fol: Yes The following are medically ne: Eagle Catheter Reason for eagle catheter: Strict I&O Subjective Patient was seen and evaluated in follow up in the ICU. Patient is intubated on ventilator. 30% FiO2. Patient is able to tolerate CPAP trials for 1-2 hours after the she gets tired and becomes tachypneic. HGB 9.1, HCT 26.9, BUN 45, Interior Decorator Paperhanging 5.79. vital signs Vital Sign Date Time Temp Pulse Resp B/P (MAP) Pulse Ox O2 Delivery O2 Flow Rate FiO2 06/24/24 22:19 61 18 123/42 (69) 97 30 06/24/24 18:00 Mechanical Ventilator+ 06/24/24 12:00 98.6 98.6 Total Intake and Output 06/23/24 06/23/24 06/24/24 15:00 23:00 07:00 Intake Total 364.56 ml 186.18 ml 301.56 ml Output Total 0 ml Balance 364.56 ml 186.18 ml 301.56 ml medications Current Medications Medications Dose Ordered Sig/Eric Route Start Time Stop Time Status Last Admin Dose Admin Ondansetron HCl 4 mg Q4HP PRN IV 06/11/24 02:00 Nitroglycerin 0.4 mg Q5MINP PRN SL 06/11/24 02:00 Albuterol 2.5 mg Q4HPRN PRN NEB 06/11/24 02:00 06/24/24 19:25 2.5 MG Ipratropium [place] 0.5 mg Q4HPRN PRN NEB 06/11/24 02:00 06/23/24 12:05 0.5 MG Pantoprazole Sodium 40 mg DAILY IV 06/11/24 10:00 06/24/24 10:57 40 MG Ceftriaxone Sodium 50 ml @ 100 mls/hr DAILY@09 IV 06/13/24 09:00 06/24/24 10:57 100 MLS/HR Acetaminophen 650 mg Q6HP PRN GT 06/11/24 23:45 06/12/24 02:48 650 MG Nicardipine HCl 250 ml @ 50 mls/hr Q5H IV 06/13/24 14:45 UNV Enteral Nutritional Formula 1,000 ml 25ML/HR GT 06/15/24 13:30 5/6/25 20:55 1,000 ML Hydralazine HCl 10 mg Q6HPRN PRN IV 06/17/24 00:00 06/23/24 06:36 10 MG Nicardipine HCl 50 mg/Sodium Chloride 250 ml @ 25 mls/hr Q10H IV 06/18/24 12:00 06/24/24 19:46 25 MLS/HR Morphine Sulfate 2 mg Q4HPRN PRN IV 06/19/24 15:45 06/24/24 19:39 2 MG Diagnostic Test (Pha) 1 strip Q6HR 06/20/24 00:00 06/24/24 23:22 1 STRIP Insulin Human Regular Q6HR SC 06/20/24 00:00 06/22/24 16:56 2 UNITS Dextrose 50 ml UD PRN IV 06/19/24 18:15 Dopamine HCl/ Dextrose 250 ml @ 15.544 mls/ hr Q16H5M IV 06/21/24 11:00 UNV Metoprolol Tartrate 50 mg BID PO 06/23/24 22:00 06/24/24 20:50 50 MG Amlodipine Besylate 10 mg DAILY PO 06/24/24 10:00 06/24/24 10:58 10 MG Vancomycin HCl 0 ml @ 0 mls/hr UD IV 06/23/24 20:45 objective GENERAL: Intubated on ventilator. EYES: PERRL, EOMI. Anicteric. HENT: Moist mucous membranes. LUNGS: Decreased breath sounds. CARDIOVASCULAR: Regular rate and rhythm. ABDOMEN: Soft, nontender and nondistended. EXTREMITIES: No edema. NEUROLOGIC: No focal neurological deficits. SKIN: Warm, dry. laboratory and microbiology Laboratory Tests 06/24/24 03:00 Test 06/24/24 03:00 Range/Units Serum Glucose 79 74-106 mg/dL Problem List Acute CVA. Hypertensive emergency. Questionable coronary artery disease. Moderate pericardial effusion. Acute hypoxic respiratory failure. End-stage renal disease on hemodialysis. History of T12 compression fracture. Assessment/Plan Continued all current supportive medical care. Aspirin, Lipitor, Metoprolol. IV antibiotics as ordered. IV Hydralazine for SBP >160. Nifedipine. Vasopressors for hemodynamic support. Morphine for pain management. Additional plan as per the hospital course. Critical care time of 45 minutes provided to include time spent evaluation of patient at bedside, when appropriate patient/family education for diagnosis, treatment plan, review of pertinent medical information and discussion of care with specialty providers and PCP. Mechanical ventilator parameters, treatment and adjustments have personally been reviewed by me and treatment plan by cinder block maker has also been reviewed. Dietary Evaluation Review Comments: 1) If patient remains NPO > 7 days, consider EN/TPN to meet at least 75% estimated needs 2) If GI route is preferred, consider Nepro @ 25 mL/hr goal rate as tolerated. EN regimen will provide 1080 kcals, 49g Pro, and 447 mL free H2O per 24 hrs. EN regimen will meet ~90% estimated daily energy needs and ~47% estimated daily protein needs 3) Initiate Nephro-Susan @ 1 tb qd 4) Advance to 60g CCHO renal standard diet when medically feasible, pending VIDEO GAME ANIMATOR approval 5) Follow-up with nephrology, cardiology, and pulmonology 6) Continue to monitor I&O, labs, and skin integrity Expected Outcomes/Goals: 1) patient to receive nutrition support within 7 days of NPO status 2) labs to improve 3) wound to improve 4) patient to be extubated and diet to advance 5) f/u in 2-3 days Plan discussed with: Other SHAUN RAMOS MD June 24, 2024 23:35
[2024-06-25] VITALS (105 sets, daily range): BP systolic 108–176; BP diastolic 37–73; PULSE 57–97; RESP 11–37; TEMP 98–99.3; O2SAT 89–100
[2024-06-25 03:42] LABS: Basophils # (auto) 0 10 ^3/uL (0-0.2); Eosinophils # (auto) 0.1 10 ^3/uL (0-0.8); Lymphocytes # (auto) 0.6 10 ^3/uL (0.4-5.4); Monocytes # (auto) 0.3 10 ^3/uL (0-1.3); Red Blood Cells 2.63 10^6/uL (4.0-5.20)
[2024-06-25 03:44] LABS: Basophils % (auto) 0.2 % (0.0-2.0); Eosinophils % (auto) 2.3 % (0.0-7.0); Hemoglobin 7.9 g/dL (12.2-16.2); Lymphocytes % (auto) 14.4 % (10.0-50.0); Mean Corpuscular Hgb Conc. 34.3 g/dL (32.0-36.0); Mean Corpuscular Volume 87.6 fL (80.0-100.0); Monocytes % (auto) 8.1 % (0.0-12.0); Platelet Count (auto) 94 10^3/uL (140-450); Red Cell Distribution Width 16.7 % (11.8-14.3)
--- NOTE | 2024-06-25 05:21 | DVH ---
CHEST RADIOGRAPH Indication: ET Tube Placement Confirmation. Technique: Frontal view of the chest. Comparison: XY CHEST PORTABLE on DOS: 06/24/24, XY CHEST PORTABLE on DOS: 06/23/24, XY CHEST XRAY 1 VIEW on DOS: 06/22/24, XY CHEST PORTABLE on DOS: 06/21/24, XY CHEST PORTABLE on DOS: 06/21/24, XY CHEST PORTABLE on DOS: 06/24/24 FINDINGS: LUNGS AND PLEURAL SPACES: See below. HEART: Cardiomegaly with mild congestion. MEDIASTINUM: Unremarkable. Normal mediastinal contour. BONES/JOINTS: Unremarkable. No acute fracture. TUBES, LINES AND DEVICES: Right internal jugular central venous catheter tip in the superior vena c neeta. The endotracheal tube (ETT) is in satisfactory position. Left internal jugular central venous catheter tip in the superior vena cava. Enteric tube tip in the stomach. IMPRESSION: Cardiomegaly with mild congestion.
[2024-06-25] MEDS: SODIUM CHL 0.9% 1000 ML BAG XX ONE (07:00)
[2024-06-25 08:48] LABS: Base Excess 3.9 mmol/L (-2.0-3.0)
--- NOTE | 2024-06-25 10:41 | DVHPN2 ---
Progress Note - Dictate Date Seen: June 25, 2024 Medical Necessity Reason Pt with a Central, PICC or Fol: Yes The following are medically ne: Eagle Catheter Reason for eagle catheter: Strict I&O Subjective on MV vital signs Vital Sign Date Time Temp Pulse Resp B/P (MAP) Pulse Ox O2 Delivery O2 Flow Rate FiO2 06/25/24 09:54 157/59 06/25/24 09:53 73 06/25/24 08:37 25 92 30 06/25/24 06:30 99.1 99.1 06/25/24 06:00 Mechanical Ventilator+ Total Intake and Output 06/24/24 06/24/24 06/25/24 15:00 23:00 07:00 Intake Total 308.24 ml 311.12 ml 321.04 ml Output Total 3500 ml Balance 308.24 ml -3188.88 ml 321.04 ml medications Current Medications Medications Dose Ordered Sig/Eric Route Start Time Stop Time Status Last Admin Dose Admin Ondansetron HCl 4 mg Q4HP PRN IV 06/11/24 02:00 Nitroglycerin 0.4 mg Q5MINP PRN SL 06/11/24 02:00 Albuterol 2.5 mg Q4HPRN PRN NEB 06/11/24 02:00 06/24/24 19:25 2.5 MG Ipratropium [place] 0.5 mg Q4HPRN PRN NEB 06/11/24 02:00 06/23/24 12:05 0.5 MG Pantoprazole Sodium 40 mg DAILY IV 06/11/24 10:00 06/25/24 09:53 40 MG Ceftriaxone Sodium 50 ml @ 100 mls/hr DAILY@09 IV 06/13/24 09:00 06/25/24 09:53 100 MLS/HR Acetaminophen 650 mg Q6HP PRN GT 06/11/24 23:45 06/12/24 02:48 650 MG Nicardipine HCl 250 ml @ 50 mls/hr Q5H IV 06/13/24 14:45 UNV Enteral Nutritional Formula 1,000 ml 25ML/HR GT 06/15/24 13:30 06/24/24 20:55 1,000 ML Hydralazine HCl 10 mg Q6HPRN PRN IV 06/17/24 00:00 06/23/24 06:36 10 MG Nicardipine HCl 50 mg/Sodium Chloride 250 ml @ 25 mls/hr Q10H IV 06/18/24 12:00 06/24/24 19:46 25 MLS/HR Morphine Sulfate 2 mg Q4HPRN PRN IV 06/19/24 15:45 06/24/24 19:39 2 MG Diagnostic Test (Pha) 1 strip Q6HR 06/20/24 00:00 06/25/24 05:48 1 STRIP Insulin Human Regular Q6HR SC 06/20/24 00:00 06/22/24 16:56 2 UNITS Dextrose 50 ml UD PRN IV 06/19/24 18:15 Dopamine HCl/ Dextrose 250 ml @ 15.544 mls/ hr Q16H5M IV 06/21/24 11:00 UNV Metoprolol Tartrate 50 mg BID PO 06/23/24 22:00 06/24/24 20:50 50 MG Amlodipine Besylate 10 mg DAILY PO 06/24/24 10:00 06/24/24 10:58 10 MG Vancomycin HCl 0 ml @ 0 mls/hr UD IV 06/23/24 20:45 objective General Appearance: intubated and sedated HEENT: ET tube Respiratory: Other (Intubated on mechanical ventilator) Cardiovascular: Regular rate, Normal S1, Normal S2 Abdominal: Normal bowel sounds, Soft, No tenderness Extremities: Other (BLE pitting edema 2+) Skin: No rashes Neuro: Other (Altered non arousable) Psych/Mental Status: Other (Unable to assess) laboratory and microbiology Laboratory Tests 06/25/24 03:00 06/24/24 03:00 Test 06/24/24 03:00 Range/Units Serum Glucose 79 74-106 mg/dL Assessment/Plan Patient is a 63-year-old female presents to the hospital with: Leucopenia resolved Vertebral Discitis subacute CVA Acute encephalopathy Acute hypoxic respiratory S/P intubation on mechanical ventilator ESRD on HD Fluid overload Hypertensive emergency Hx T12 compression fracture Recommendations: WBC normal she is off sedation and are trying to extubate her; Patient is able to tolerate CPAP trials for 1-2 hours after the she gets tired and becomes tachypneic reviewed CXR personally, some bibasilar infiltrates but seems stable. Vancomycin restarted on 06/23 - Ongoing MRI lumbar spine done 06/19 is wo contrast which is not very ideal for infection. there is no comment about discitis or phlegmon. however, MRI [facility] on 05/22 commented about discitis. would consider resuming and completing the course for now since she already has been on antibiotics since 05/22. tagged wbc scan may be a better study since she on HD, mri w contrast might be difficult. reviewed [facility] records in detail: She had low wbc from 03/23/2024 with 3.4 with intermittent 1.8 and she has been admitted 2-3 times and wbc is in same range. no work up done She had mri spine with on 05/22 shows hypointense T1 and hyperintense T2 at L3-L4 concerning for discitis osteomyelitis. Hyperintense T2 signal along epidural space L3-L4 for 5mm AP diameter concerning for Phlegmon. ID Dr Carlisle saw the patient and recommended IV Vancomycin for 6 weeks. There is no positive blood cultures or biopsy done. His notes on 05/23 recommended 6 weeks of IV vancomycin ( switched from ceftriaxone for low wbc). recommend Continuing IV Vancomycin/ Ceftriaxone for 6 weeks since leucopenia was present in prior admissions too, its unlikely due to Vancomycin discussed with nephrology, reviewed old labs, back in 2022 also her wbc was in 3k. unsure if she had work up done platelets were in 200 in 2023 but later its been low too MRI showed Severe spinal canal stenosis with severe bilateral lateral recess narrowing at L3-L4. Severe bilateral neural foramina stenosis at L3-L4 with moderate right and severe left-sided neural foramina stenosis at L4-L5. Grade 1 anterolisthesis of L4 on L5. Continue IV Ceftriaxone for now; v Monitor Vancomycin Trough, on HD 06/16, Vancomycin Random is 27 on MV Antibiotic status: Ceftriaxone IV [Started on 06/11 - Ongoing] Vancomycin IV [Restarted on 06/23 - Ongoing] 06/11, Respiratory culture preliminary showed Normal Oropharyngeal Trish 06/11, Blood culture showed no growth 06/13, MRSA screening came back negative Review of Imagin/24, Chest x-ray showed Cardiomegaly with mild congestion. Prognosis guarded plan discussed with attending physician Thank you for consult. Dietary Evaluation Review Comments: 1) If patient remains NPO > 7 days, consider EN/TPN to meet at least 75% estimated needs 2) If GI route is preferred, consider Nepro @ 25 mL/hr goal rate as tolerated. EN regimen will provide 1080 kcals, 49g Pro, and 447 mL free H2O per 24 hrs. EN regimen will meet ~90% estimated daily energy needs and ~47% estimated daily protein needs 3) Initiate Nephro-Susan @ 1 tb qd 4) Advance to 60g CCHO renal standard diet when medically feasible, pending [facility] approval 5) Follow-up with nephrology, cardiology, and pulmonology 6) Continue to monitor I&O, labs, and skin integrity Expected Outcomes/Goals: 1) patient to receive nutrition support within 7 days of NPO status 2) labs to improve 3) wound to improve 4) patient to be extubated and diet to advance 5) f/u in 2-3 days Plan discussed with: GONZÁLEZ Vidal MD June 25, 2024 10:41
--- NOTE | 2024-06-25 10:53 | DVHPN2 ---
Progress Note - Dictate Date Seen: June 25, 2024 Medical Necessity Reason Pt with a Central, PICC or Fol: Yes The following are medically ne: Eagle Catheter Reason for eagle catheter: Strict I&O Subjective Ms. Dawkins is a 63 years old female with a history of chronic kidney failure on hemodialysis, recent spine fracture, she came to the [facility] on 06/10/2024 with a chief complaint of back pain. I have seen and examined the patient, I have discussed with her nurse, she is on CPAP. she failed extubation yesterday, she is awake, physically stronger, she moves the arms and legs, she was does not follow me but she followed her nurse verbal commands She has been off sedation since 12:00 p.m. on 06/17/2024 Blood culture, 06/11/2024: Urinalysis, 06/11/2024: Negative Plasma alcohol, 06/10/2024: <3 ABG, 06/08/2024: Respiratory alkalosis WBC/HB/PLT/MCV, 06/11/2024: 1.7/10.5/114/89.3, 06/15/2024: 2.2/9.7/124/87.7, 06/16/2024: 0.5/10.3/136/86.5, 06/17/2024: 7.2/9.9/152/87.3 Na, 06/10/2024: 136, 06/12/2024: 133, 06/14/2024: 125, 06/15/24: 130 BUN/CR, 05/2624: 47/7.51, 06/15/2024: 31/5.74 HGB A1c, 06/11/2024: 4.3 Liver function tests, 06/10/2024: Unremarkable TG/HDL/LDL/HDL, 06/11/2024: 63/106/47/40 Echocardiogram, 06/11/2024: LVEF is normal 50-55% Rv function normal Moderate pericardial effusion with no evidence of tamponade Large left pleural effusion Chest x-ray, 06/11/2024: Lines and tubes in satisfactory position. No significant interval change Chest x-ray, 06/15/2024: 1. Mild diffuse increased prominence of the pulmonary vasculature. 2. Lines and tubes unchanged CT head, 06/10/2024: Subacute stroke involving the left frontal lobe white matter which also may involve the left temporal lobe as well can not rule out acute features CT head, neck, 06/10/2024: No significant vascular stenosis involving the head / neck. Moderate occlusion of the bilateral V4 segments vertebral arteries due to calcified and noncalcified plaques CT head 06/21/24: 1. No acute intracranial hemorrhage 2. Stable left parietal infarct unchanged from 06/10/2024. CT T-spine, 06/10/2024: No evidence of fracture in the thoracic spine CT lumbar spine, 06/10/2024: No acute fracture. Grade 1 anterolisthesis at L4-L5 with bilateral pars defects. Moderate to severe endplate degenerative changes at L4-L5, T12-L1, and L5-S1. There is severe spinal canal narrowing at L4-L5. Partially visualized moderate bilateral pleural effusions. Mild diffuse anasarca MRI head, 06/12/2024: 1. There is no acute intracranial process. 2. Chronic infarct in the superolateral left frontal lobe. (I saw another possible chronic stroke: Images 16) MRI lumbar spine, 06/19/2024: Severe spinal canal stenosis with severe bilateral lateral recess narrowing at L3-L4. Severe bilateral neural foramina stenosis at L3-L4 with moderate right and severe left-sided neural foramina stenosis at L4- L5. Grade 1 anterolisthesis of L4 on L5. vital signs Vital Sign Date Time Temp Pulse Resp B/P (MAP) Pulse Ox O2 Delivery O2 Flow Rate FiO2 06/25/24 09:54 157/59 06/25/24 09:53 73 06/25/24 08:37 25 92 30 06/25/24 06:30 99.1 99.1 06/25/24 06:00 Mechanical Ventilator+ Total Intake and Output 06/24/24 06/24/24 06/25/24 15:00 23:00 07:00 Intake Total 308.24 ml 311.12 ml 321.04 ml Output Total 3500 ml Balance 308.24 ml -3188.88 ml 321.04 ml medications Current Medications Medications Dose Ordered Sig/Eric Route Start Time Stop Time Status Last Admin Dose Admin Ondansetron HCl 4 mg Q4HP PRN IV 06/11/24 02:00 Nitroglycerin 0.4 mg Q5MINP PRN SL 06/11/24 02:00 Albuterol 2.5 mg Q4HPRN PRN NEB 06/11/24 02:00 06/24/24 19:25 2.5 MG Ipratropium [place] 0.5 mg Q4HPRN PRN NEB 06/11/24 02:00 06/23/24 12:05 0.5 MG Pantoprazole Sodium 40 mg DAILY IV 06/11/24 10:00 06/25/24 09:53 40 MG Ceftriaxone Sodium 50 ml @ 100 mls/hr DAILY@09 IV 06/13/24 09:00 06/25/24 09:53 100 MLS/HR Acetaminophen 650 mg Q6HP PRN GT 06/11/24 23:45 06/12/24 02:48 650 MG Nicardipine HCl 250 ml @ 50 mls/hr Q5H IV 06/13/24 14:45 UNV Enteral Nutritional Formula 1,000 ml 25ML/HR GT 06/15/24 13:30 06/24/24 20:55 1,000 ML Hydralazine HCl 10 mg Q6HPRN PRN IV 06/17/24 00:00 06/23/24 06:36 10 MG Nicardipine HCl 50 mg/Sodium Chloride 250 ml @ 25 mls/hr Q10H IV 06/18/24 12:00 06/24/24 19:46 25 MLS/HR Morphine Sulfate 2 mg Q4HPRN PRN IV 06/19/24 15:45 06/24/24 19:39 2 MG Diagnostic Test (Pha) 1 strip Q6HR 06/20/24 00:00 06/25/24 05:48 1 STRIP Insulin Human Regular Q6HR SC 06/20/24 00:00 06/22/24 16:56 2 UNITS Dextrose 50 ml UD PRN IV 06/19/24 18:15 Dopamine HCl/ Dextrose 250 ml @ 15.544 mls/ hr Q16H5M IV 06/21/24 11:00 UNV Metoprolol Tartrate 50 mg BID PO 06/23/24 22:00 06/24/24 20:50 50 MG Amlodipine Besylate 10 mg DAILY PO 06/24/24 10:00 06/24/24 10:58 10 MG Vancomycin HCl 0 ml @ 0 mls/hr UD IV 06/23/24 20:45 objective The patient is well-nourished and well-developed with no distress. The patient is intubated MENTAL STATUS: Subjective CRANIAL NERVES: Pupils are equal, round and reactive. There are conjugated eye movement. No signs of facial weakness. There are gagging or coughing reflexes SENSATION: Okay to light touch and pinprick MOTOR: Normal tone in the upper and lower extremity. Normal muscle bulk. No fasciculations. Subjective REFLEXES: Deep tendon reflexes are symmetrical. No pathological reflexes. CEREBELLAR/COORDINATION: Deferred GAIT/STATION: deferred. laboratory and microbiology Laboratory Tests 06/25/24 03:00 06/24/24 03:00 Test 06/24/24 03:00 Range/Units Serum Glucose 79 74-106 mg/dL Problem List 2 chronic strokes in the left hemisphere per MRI and CT scan, asymptomatic Acute low back pain to rule out diskitis Acute respiratory failure Pancytopenia, better Hyponatremia Hypokalemia Chronic kidney failure Anisocoria noticed on 06/18/2024, uncertain clinical significance Looks improving Assessment/Plan Monitoring Supportive treatment ICU care Follow-up labs Stabilize vitals Respiratory support/vent management IV antibiotics Aspirin 81 mg daily Lipitor 40 mg daily DVT prophylaxis GI prophylaxis Consult hematology Infectious disease on case Cardiology on case Pulmonary on case Nephrology on case CPAP trial/extubation More recommendation per clinical course This medical document was created using an electronic medical record system with [employer] dictation system. Although this document has been carefully reviewed, there may still be some phonetic and typographical errors. These areas are purely typographical due to imperfections of the software programs, and do not reflect any compromise in the patient's medical care Prognosis guarded Dietary Evaluation Review Comments: 1) If patient remains NPO > 7 days, consider EN/TPN to meet at least 75% estimated needs 2) If GI route is preferred, consider Nepro @ 25 mL/hr goal rate as tolerated. EN regimen will provide 1080 kcals, 49g Pro, and 447 mL free H2O per 24 hrs. EN regimen will meet ~90% estimated daily energy needs and ~47% estimated daily protein needs 3) Initiate Nephro-Susan @ 1 tb qd 4) Advance to 60g CCHO renal standard diet when medically feasible, pending EDITOR IN CHIEF approval 5) Follow-up with nephrology, cardiology, and pulmonology 6) Continue to monitor I&O, labs, and skin integrity Expected Outcomes/Goals: 1) patient to receive nutrition support within 7 days of NPO status 2) labs to improve 3) wound to improve 4) patient to be extubated and diet to advance 5) f/u in 2-3 days Plan discussed with: Other FORD ORTA MD June 25, 2024 10:52
[2024-06-25 12:36] LABS: Alanine Aminotransferase 12 U/L (7-40); Albumin 3.3 g/dL (3.2-4.8); Alkaline Phosphatase 96 U/L (46-116); Anion Gap 11 (5-15); Aspartate Aminotransferase 20 U/L (13-40); BUN/Creatinine Ratio 6.1 (10.0-20.0); Bilirubin, Total 0.5 mg/dL (0.2-1.0); Blood Urea Nitrogen 25 mg/dL (9-23); Calcium 9.4 mg/dL (8.7-10.4); Carbon Dioxide 28 mmol/L (20-31); Chloride 100 mmol/L (98-107); Glucose 78 mg/dL (74-106); Potassium 3.7 mmol/L (3.5-5.1); Sodium 139 mmol/L (136-145); Total Protein 5.5 g/dL (5.7-8.2)
--- NOTE | 2024-06-25 14:28 | DVHPN2 ---
Progress Note - Dictate Date Seen: June 25, 2024 Medical Necessity Reason Pt with a Central, PICC or Fol: Yes The following are medically ne: Eagle Catheter Reason for eagle catheter: Strict I&O Subjective No acute overnight events. Still undergoing CPAP trials unable to successfully extubate at given she is not fully tolerating CPAP trials for prolonged period of time per nurse. Patient is on and off briefly on nicardipine drip for blood pressure control. vital signs Vital Sign Date Time Temp Pulse Resp B/P (MAP) Pulse Ox O2 Delivery O2 Flow Rate FiO2 06/25/24 13:00 79 25 147/53 (84) 98 30 06/25/24 12:00 99.0 99.0 06/25/24 12:00 Mechanical Ventilator+ Total Intake and Output 06/24/24 06/24/24 06/25/24 15:00 23:00 07:00 Intake Total 308.24 ml 311.12 ml 321.04 ml Output Total 3500 ml Balance 308.24 ml -3188.88 ml 321.04 ml medications Current Medications Medications Dose Ordered Sig/Eric Route Start Time Stop Time Status Last Admin Dose Admin Ondansetron HCl 4 mg Q4HP PRN IV 06/11/24 02:00 Nitroglycerin 0.4 mg Q5MINP PRN SL 06/11/24 02:00 Albuterol 2.5 mg Q4HPRN PRN NEB 06/11/24 02:00 06/24/24 19:25 2.5 MG Ipratropium [place] 0.5 mg Q4HPRN PRN NEB 06/11/24 02:00 06/23/24 12:05 0.5 MG Pantoprazole Sodium 40 mg DAILY IV 06/11/24 10:00 06/25/24 09:53 40 MG Ceftriaxone Sodium 50 ml @ 100 mls/hr DAILY@09 IV 06/13/24 09:00 06/25/24 09:53 100 MLS/HR Acetaminophen 650 mg Q6HP PRN GT 06/11/24 23:45 06/12/24 02:48 650 MG Nicardipine HCl 250 ml @ 50 mls/hr Q5H IV 06/13/24 14:45 UNV Enteral Nutritional Formula 1,000 ml 25ML/HR GT 06/15/24 13:30 06/24/24 20:55 1,000 ML Hydralazine HCl 10 mg Q6HPRN PRN IV 06/17/24 00:00 06/23/24 06:36 10 MG Nicardipine HCl 50 mg/Sodium Chloride 250 ml @ 25 mls/hr Q10H IV 06/18/24 12:00 06/25/24 12:15 25 MLS/HR Morphine Sulfate 2 mg Q4HPRN PRN IV 06/19/24 15:45 06/24/24 19:39 2 MG Diagnostic Test (Pha) 1 strip Q6HR 06/20/24 00:00 06/25/24 12:15 1 STRIP Insulin Human Regular Q6HR SC 06/20/24 00:00 06/22/24 16:56 2 UNITS Dextrose 50 ml UD PRN IV 06/19/24 18:15 Dopamine HCl/ Dextrose 250 ml @ 15.544 mls/ hr Q16H5M IV 06/21/24 11:00 UNV Metoprolol Tartrate 50 mg BID PO 06/23/24 22:00 06/24/24 20:50 50 MG Amlodipine Besylate 10 mg DAILY PO 06/24/24 10:00 06/24/24 10:58 10 MG Vancomycin HCl 0 ml @ 0 mls/hr UD IV 06/23/24 20:45 objective Opens her eyes calling her name. HEENT neck supple no JVD pupils equal round react to light. Lungs fair air movement without rales wheezes. Extremities small bruise noted on right posterior thigh region. laboratory and microbiology Laboratory Tests 06/25/24 03:00 Test 06/25/24 03:00 Range/Units Serum Glucose 78 74-106 mg/dL Assessment/Plan 1. Acute hypoxic respiratory failure requiring intubation with mechanical ventilation secondary to metabolic encephalopathy 2. 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 Hypertensive emergency with the end-organ involvement , off the nicardipine drip 5. End-stage renal disease on hemodialysis received hemodialysis on06/14 6. Coronary artery disease Continue present management. Accu-Cheks and sliding scale insulin as she is on. Given her blood pressure issues with the needing iron of nicardipine drip I will start her on clonidine 0.2 mg patch. Also continue amlodipine and metoprolol as she is on. Otherwise continue daily CPAP trials and vent stable and per recommendations from pulmonology extubate. Otherwise no changes to present management. Discussed with the nurse at bedside regarding care plan. Dietary Evaluation Review Comments: 1) If patient remains NPO > 7 days, consider EN/TPN to meet at least 75% estimated needs 2) If GI route is preferred, consider Nepro @ 25 mL/hr goal rate as tolerated. EN regimen will provide 1080 kcals, 49g Pro, and 447 mL free H2O per 24 hrs. EN regimen will meet ~90% estimated daily energy needs and ~47% estimated daily protein needs 3) Initiate Nephro-Susan @ 1 tb qd 4) Advance to 60g CCHO renal standard diet when medically feasible, pending [employer] approval 5) Follow-up with nephrology, cardiology, and pulmonology 6) Continue to monitor I&O, labs, and skin integrity Expected Outcomes/Goals: 1) patient to receive nutrition support within 7 days of NPO status 2) labs to improve 3) wound to improve 4) patient to be extubated and diet to advance 5) f/u in 2-3 days Plan discussed with: Other BRIANNE CADE MD June 25, 2024 14:28
--- NOTE | 2024-06-25 15:17 | DVHPN2 ---
Progress Note - Dictate Date Seen: June 25, 2024 Medical Necessity Reason Pt with a Central, PICC or Fol: Yes The following are medically ne: Eagle Catheter Reason for eagle catheter: Strict I&O Subjective Patient is about to be extubated vital signs Vital Sign Date Time Temp Pulse Resp B/P (MAP) Pulse Ox O2 Delivery O2 Flow Rate FiO2 06/25/24 13:00 79 25 147/53 (84) 98 30 06/25/24 12:00 99.0 99.0 06/25/24 12:00 Mechanical Ventilator+ Total Intake and Output 06/24/24 06/24/24 06/25/24 15:00 23:00 07:00 Intake Total 308.24 ml 311.12 ml 321.04 ml Output Total 3500 ml Balance 308.24 ml -3188.88 ml 321.04 ml medications Current Medications Medications Dose Ordered Sig/Eric Route Start Time Stop Time Status Last Admin Dose Admin Ondansetron HCl 4 mg Q4HP PRN IV 06/11/24 02:00 Nitroglycerin 0.4 mg Q5MINP PRN SL 06/11/24 02:00 Albuterol 2.5 mg Q4HPRN PRN NEB 06/11/24 02:00 06/24/24 19:25 2.5 MG Ipratropium [place] 0.5 mg Q4HPRN PRN NEB 06/11/24 02:00 06/23/24 12:05 0.5 MG Pantoprazole Sodium 40 mg DAILY IV 06/11/24 10:00 06/25/24 09:53 40 MG Ceftriaxone Sodium 50 ml @ 100 mls/hr DAILY@09 IV 06/13/24 09:00 06/25/24 09:53 100 MLS/HR Acetaminophen 650 mg Q6HP PRN GT 06/11/24 23:45 06/12/24 02:48 650 MG Nicardipine HCl 250 ml @ 50 mls/hr Q5H IV 06/13/24 14:45 UNV Enteral Nutritional Formula 1,000 ml 25ML/HR GT 06/15/24 13:30 06/24/24 20:55 1,000 ML Hydralazine HCl 10 mg Q6HPRN PRN IV 06/17/24 00:00 06/23/24 06:36 10 MG Nicardipine HCl 50 mg/Sodium Chloride 250 ml @ 25 mls/hr Q10H IV 06/18/24 12:00 06/25/24 12:15 25 MLS/HR Morphine Sulfate 2 mg Q4HPRN PRN IV 06/19/24 15:45 06/24/24 19:39 2 MG Diagnostic Test (Pha) 1 strip Q6HR 06/20/24 00:00 06/25/24 12:15 1 STRIP Insulin Human Regular Q6HR SC 06/20/24 00:00 06/22/24 16:56 2 UNITS Dextrose 50 ml UD PRN IV 06/19/24 18:15 Dopamine HCl/ Dextrose 250 ml @ 15.544 mls/ hr Q16H5M IV 06/21/24 11:00 UNV Metoprolol Tartrate 50 mg BID PO 06/23/24 22:00 06/24/24 20:50 50 MG Amlodipine Besylate 10 mg DAILY PO 06/24/24 10:00 06/24/24 10:58 10 MG Vancomycin HCl 0 ml @ 0 mls/hr UD IV 06/23/24 20:45 Clonidine HCl 0.2 mg Q7D TD 06/25/24 14:30 objective HEENT: ET tube in place Pulmonary: Diminished lung sounds bilaterally Cardiovascular S1-S2, no S3 or S4 Abdomen: Bowel sounds positive, soft no rebound tenderness Skin: No rash Neurological: Alert and oriented and following commands. Hemodialysis access right upper chest CVC laboratory and microbiology Laboratory Tests 06/25/24 03:00 Test 06/25/24 03:00 Range/Units Serum Glucose 78 74-106 mg/dL Assessment/Plan Assessment: End-stage renal disease on HD Hypokalemia Anemia of renal disease. Acute hypoxic Respiratory failure, on mechanical ventilation HTN urgency Subacute stroke. T-spine fracture. Leukopenia Plan: Hemodialysis in a.m. and TTS Extubation today on amlodipine On metoprolol 50 mg twice a day. on Precedex daily BNP ID consult appreciated Continue IV antibiotics ANANTH post HD as needed, goal Hb: 10-11 g/dl Thank you very much for allowing us to participate in the care of this patient. Dietary Evaluation Review Comments: 1) If patient remains NPO > 7 days, consider EN/TPN to meet at least 75% estimated needs 2) If GI route is preferred, consider Nepro @ 25 mL/hr goal rate as tolerated. EN regimen will provide 1080 kcals, 49g Pro, and 447 mL free H2O per 24 hrs. EN regimen will meet ~90% estimated daily energy needs and ~47% estimated daily protein needs 3) Initiate Nephro-Susan @ 1 tb qd 4) Advance to 60g [facility] renal standard diet when medically feasible, pending [facility] approval 5) Follow-up with nephrology, cardiology, and pulmonology 6) Continue to monitor I&O, labs, and skin integrity Expected Outcomes/Goals: 1) patient to receive nutrition support within 7 days of NPO status 2) labs to improve 3) wound to improve 4) patient to be extubated and diet to advance 5) f/u in 2-3 days Plan discussed with: Patient JUAN R MARIEE MD June 25, 2024 15:17
[2024-06-25] MEDS: DexAMETHasone SOD PHOS 4 MG/1ML SDV INJ ONE (15:46)
[2024-06-25] MEDS: DexAMETHasone SOD PHOS 10MG/1ML VIAL INJ IV ONE (15:50)
[2024-06-25] MEDS: EPINEPHrine HCL 0.5 ML NEB ONE ×2 (16:04→16:50)
[2024-06-25] MEDS: cloNIDine 0.2 mg/24hr 7DAY PATCH TD SCH (16:35)
--- NOTE | 2024-06-25 16:47 | DVH ---
INDICATION: post extubation/ sob TECHNIQUE: Frontal view of the chest. COMPARISON: XY CHEST XRAY 1 VIEW on DOS: 06/25/24, XY CHEST PORTABLE on DOS: 06/24/24, XY CHEST PORTABLE on DOS: 06/23/24, XY CHEST XRAY 1 VIEW on DOS: 06/22/24, XY CHEST PORTABLE on DOS: 06/21/24 FINDINGS: Finding. The heart is mildly enlarged.. There is mild pulmonary venous congestion. There is moderat e right-sided pleural effusion. Digital left internal jugular catheter with tip in superior vena cava . Right-sided hemodialysis catheter with tip in superior vena cava. The bony structures of the ch est are intact without fracture. The bony thorax osteopenia. IMPRESSION: 1. Mild cardiomegaly with mild pulmonary venous congestion 2. Moderate right-sided pleural effusion 3. Support lines are in satisfactory
[2024-06-25] MEDS: EPINEPHrine HCL 0.5 ML NEB NEB ONE (17:00)
[2024-06-25 20:34] LABS: Base Excess -2.6 mmol/L (-2.0-3.0)
[2024-06-25] MEDS: DexAMETHasone SOD PHOS 10MG/1ML VIAL INJ IV SCH (20:59)
[2024-06-25] MEDS: EPOETIN ALFA-EPBX 4,000 UNIT/ML VIAL SC ONE (21:00)
--- NOTE | 2024-06-25 22:20 | DVHPN2 ---
Progress Note - Dictate Date Seen: June 25, 2024 Medical Necessity Reason Pt with a Central, PICC or Fol: Yes The following are medically ne: Eagle Catheter Reason for eagle catheter: Strict I&O Subjective Patient was seen and evaluated in follow up in the ICU. Patient is intubated on ventilator. 30% FiO2. Patient undergoing CPAP trial. Patient is on and off briefly on nicardipine drip for blood pressure control. WBC 4, HGB 7.9, HCT 23, BUN 25, COMPLIANCE VICE PRESIDENT 4.08. Chest x-ray showed cardiomegaly with mild congestion. vital signs Vital Sign Date Time Temp Pulse Resp B/P (MAP) Pulse Ox O2 Delivery O2 Flow Rate FiO2 06/25/24 13:00 79 25 147/53 (84) 98 30 06/25/24 12:00 99.0 99.0 06/25/24 12:00 Mechanical Ventilator+ Total Intake and Output 06/24/24 06/24/24 06/25/24 15:00 23:00 07:00 Intake Total 308.24 ml 311.12 ml 321.04 ml Output Total 3500 ml Balance 308.24 ml -3188.88 ml 321.04 ml medications Current Medications Medications Dose Ordered Sig/Eric Route Start Time Stop Time Status Last Admin Dose Admin Ondansetron HCl 4 mg Q4HP PRN IV 06/11/24 02:00 Nitroglycerin 0.4 mg Q5MINP PRN SL 06/11/24 02:00 Albuterol 2.5 mg Q4HPRN PRN NEB 06/11/24 02:00 06/24/24 19:25 2.5 MG Ipratropium [place] 0.5 mg Q4HPRN PRN NEB 06/11/24 02:00 06/23/24 12:05 0.5 MG Pantoprazole Sodium 40 mg DAILY IV 06/11/24 10:00 06/25/24 09:53 40 MG Ceftriaxone Sodium 50 ml @ 100 mls/hr DAILY@09 IV 06/13/24 09:00 06/25/24 09:53 100 MLS/HR Acetaminophen 650 mg Q6HP PRN GT 06/11/24 23:45 06/12/24 02:48 650 MG Nicardipine HCl 250 ml @ 50 mls/hr Q5H IV 06/13/24 14:45 UNV Enteral Nutritional Formula 1,000 ml 25ML/HR GT 06/15/24 13:30 06/24/24 20:55 1,000 ML Hydralazine HCl 10 mg Q6HPRN PRN IV 06/17/24 00:00 06/23/24 06:36 10 MG Nicardipine HCl 50 mg/Sodium Chloride 250 ml @ 25 mls/hr Q10H IV 06/18/24 12:00 06/25/24 12:15 25 MLS/HR Morphine Sulfate 2 mg Q4HPRN PRN IV 06/19/24 15:45 06/24/24 19:39 2 MG Diagnostic Test (Pha) 1 strip Q6HR 06/20/24 00:00 06/25/24 12:15 1 STRIP Insulin Human Regular Q6HR SC 06/20/24 00:00 06/22/24 16:56 2 UNITS Dextrose 50 ml UD PRN IV 06/19/24 18:15 Dopamine HCl/ Dextrose 250 ml @ 15.544 mls/ hr Q16H5M IV 06/21/24 11:00 UNV Metoprolol Tartrate 50 mg BID PO 06/23/24 22:00 06/24/24 20:50 50 MG Amlodipine Besylate 10 mg DAILY PO 06/24/24 10:00 06/24/24 10:58 10 MG Vancomycin HCl 0 ml @ 0 mls/hr UD IV 06/23/24 20:45 objective GENERAL: Intubated on ventilator. EYES: PERRL, EOMI. Anicteric. HENT: Moist mucous membranes. LUNGS: Decreased breath sounds. CARDIOVASCULAR: Regular rate and rhythm. ABDOMEN: Soft, nontender and nondistended. EXTREMITIES: No edema. NEUROLOGIC: No focal neurological deficits. SKIN: Warm, dry. laboratory and microbiology Laboratory Tests 06/25/24 03:00 Test 06/25/24 03:00 Range/Units Serum Glucose 78 74-106 mg/dL Problem List Acute CVA. Hypertensive emergency. Questionable coronary artery disease. Moderate pericardial effusion. Acute hypoxic respiratory failure. End-stage renal disease on hemodialysis. History of T12 compression fracture. Assessment/Plan Continued all current supportive medical care. Amlodipine, Clonidine. IV antibiotics as ordered. IV Hydralazine for SBP >160. Metoprolol. Morphine for pain management. GI prophylactics. Additional plan as per the hospital course. Critical care time of 45 minutes provided to include time spent evaluation of patient at bedside, when appropriate patient/family education for diagnosis, treatment plan, review of pertinent medical information and discussion of care with specialty providers and PCP. Mechanical ventilator parameters, treatment and adjustments have personally been reviewed by me and treatment plan by hvac estimator has also been reviewed. Dietary Evaluation Review Comments: 1) If patient remains NPO > 7 days, consider EN/TPN to meet at least 75% estimated needs 2) If GI route is preferred, consider Nepro @ 25 mL/hr goal rate as tolerated. EN regimen will provide 1080 kcals, 49g Pro, and 447 mL free H2O per 24 hrs. EN regimen will meet ~90% estimated daily energy needs and ~47% estimated daily protein needs 3) Initiate Nephro-Susan @ 1 tb qd 4) Advance to 60g CCHO renal standard diet when medically feasible, pending PILOT CONTROL OPERATOR approval 5) Follow-up with nephrology, cardiology, and pulmonology 6) Continue to monitor I&O, labs, and skin integrity Expected Outcomes/Goals: 1) patient to receive nutrition support within 7 days of NPO status 2) labs to improve 3) wound to improve 4) patient to be extubated and diet to advance 5) f/u in 2-3 days Plan discussed with: SHAUN Pérez MD June 25, 2024 13:36
--- NOTE | 2024-06-25 22:59 | DVHPN2 ---
Progress Note - Dictate Date Seen: June 25, 2024 Medical Necessity Reason Pt with a Central, PICC or Fol: Yes The following are medically ne: Eagle Catheter Reason for eagle catheter: Strict I&O Subjective Patient seen and examined at bedside. S/p extubation, currently on BiPAP Overnight events reviewed. vital signs Vital Sign Date Time Temp Pulse Resp B/P (MAP) Pulse Ox O2 Delivery O2 Flow Rate FiO2 06/25/24 22:09 73 128/45 96 Nasal BiPAP Mask 30 06/25/24 18:45 31 06/25/24 16:00 98.0 98.0 Total Intake and Output 06/24/24 06/24/24 06/25/24 15:00 23:00 07:00 Intake Total 308.24 ml 311.12 ml 321.04 ml Output Total 3500 ml Balance 308.24 ml -3188.88 ml 321.04 ml medications Current Medications Medications Dose Ordered Sig/Eric Route Start Time Stop Time Status Last Admin Dose Admin Ondansetron HCl 4 mg Q4HP PRN IV 06/11/24 02:00 Nitroglycerin 0.4 mg Q5MINP PRN SL 06/11/24 02:00 Albuterol 2.5 mg Q4HPRN PRN NEB 06/11/24 02:00 06/25/24 22:23 2.5 MG Ipratropium [place] 0.5 mg Q4HPRN PRN NEB 06/11/24 02:00 06/25/24 22:23 0.5 MG Pantoprazole Sodium 40 mg DAILY IV 06/11/24 10:00 06/25/24 09:53 40 MG Ceftriaxone Sodium 50 ml @ 100 mls/hr DAILY@09 IV 06/13/24 09:00 06/25/24 09:53 100 MLS/HR Acetaminophen 650 mg Q6HP PRN GT 06/11/24 23:45 06/12/24 02:48 650 MG Nicardipine HCl 250 ml @ 50 mls/hr Q5H IV 06/13/24 14:45 UNV Enteral Nutritional Formula 1,000 ml 25ML/HR GT 06/15/24 13:30 06/24/24 20:55 1,000 ML Hydralazine HCl 10 mg Q6HPRN PRN IV 06/17/24 00:00 06/23/24 06:36 10 MG Nicardipine HCl 50 mg/Sodium Chloride 250 ml @ 25 mls/hr Q10H IV 06/18/24 12:00 06/25/24 20:59 37.5 MLS/HR Morphine Sulfate 2 mg Q4HPRN PRN IV 06/19/24 15:45 06/24/24 19:39 2 MG Diagnostic Test (Pha) 1 strip Q6HR 06/20/24 00:00 06/25/24 18:00 1 STRIP Insulin Human Regular Q6HR SC 06/20/24 00:00 06/22/24 16:56 2 UNITS Dextrose 50 ml UD PRN IV 06/19/24 18:15 Dopamine HCl/ Dextrose 250 ml @ 15.544 mls/ hr Q16H5M IV 06/21/24 11:00 UNV Metoprolol Tartrate 50 mg BID PO 06/23/24 22:00 06/24/24 20:50 50 MG Amlodipine Besylate 10 mg DAILY PO 06/24/24 10:00 06/24/24 10:58 10 MG Vancomycin HCl 0 ml @ 0 mls/hr UD IV 06/23/24 20:45 Clonidine HCl 0.2 mg Q7D TD 06/25/24 14:30 06/25/24 16:35 0.2 MG Dexamethasone Sodium Phosphate 6 mg Q6H IV 06/26/24 03:00 06/26/24 15:01 objective Gen.: Patient lying in bed in no apparent distress. On BiPAP Head: Normocephalic, atraumatic. Eyes: EOMI/PERRLA. Ears: Normal hearing. Normal anatomy. Neck/trachea: Trachea midline, supple. Nose: Normal external anatomy. Mouth: Moist mucous membranes. Chest: Decreased air entry bilaterally. No wheezing or rhonchi. Cardiovascular: Positive S1, positive S2. Regular rate and rhythm. Abdomen: Positive bowel sounds in all 4 quadrants. Soft, non-tender, non- distended. : Deferred. Rectal: Deferred. Skin: Warm, dry. Intact. Extremities: 2+ radial pulses bilaterally. No lower extremity edema. Neuro: Awake, alert, oriented x3. No gross motor or sensory deficits. Cranial nerves II through XII intact. Gait not assessed laboratory and microbiology Laboratory Tests 06/25/24 03:00 Test 5/7/25 03:00 Range/Units Serum Glucose 78 74-106 mg/dL Assessment/Plan Impression: Acute hypoxic respiratory failure Mechanical ventilation, s/p extubation Acute CVA Acute encephalopathy ESRD, on hemodialysis Pulmonary edema Shock Obesity BMI 33.3 Events: Patient tolerated CPAP and was extubated uneventfully today She was noted to have stridor, gave racemic epinephrine first dose STAT Started on BiPAP with IPAP 16, EPAP of 8, FIO2 90% Started Decadron Pt noted to have some hemoptysis. Head of bed elevation Aspiration precautions On nicardipine drip for blood pressure control Monitor respiratory status closely - patient is high risk for reintubation. Status post hemodialysis yesterday, 3.5 liters removed Nephrology recs appreciated. Continue antibiotics Continue bronchodilators Protonix for GI prophylaxis Tube feeds for nutritional support HD per Nephrology Monitor renal function Monitor electrolytes. Supplement as necessary. Monitor ins and outs. Labs and imaging reviewed Plan: S/p extubation On BiPAP Titrate FiO2 to keep O2 sats above 90%. On nicardipine drip for blood pressure Continue antibiotics. F/u cultures. Continue bronchodilators Accu-Cheks, ISS PRN Echo reviewed Cardiology recs appreciated Pressors as necessary for hemodynamic support Titrate to keep mean arterial pressure greater than 65 mmHg. HD per Nephrology Monitor renal function Monitor electrolytes. Supplement as necessary. Monitor ins and outs. Maintain euvolemia. GI prophylaxis. DVT prophylaxis. Prognosis: Poor given patient's multiple co-morbidities. Condition: Critical Rest of plan per hospitalist and other consultants. A total of 35 minutes of critical care time was spent reviewing the patient record, examining the patient, making a diagnostic and therapeutic plan, discussing this plan with the medical personnel, following up on diagnostic studies and following the patient for clinical stability excluding any and all procedures. At least 50% of this time was spent in direct, [id number] contact. Thank you, LISA Garcia, for allowing me to participate in this patient's care. Further recommendations will depend on the patient's clinical course. Please do not hesitate to contact me if you have any questions or concerns. This medical document was created using an electronic medical record system with [employer] system. Although these documentations are being carefully reviewed, there may still be some phonetic and typographical changes. The errors are purely typographical, due to imperfection on the software program, and do not reflect any compromise in the patient's medical care. Dietary Evaluation Review Comments: 1) If patient remains NPO > 7 days, consider EN/TPN to meet at least 75% estimated needs 2) If GI route is preferred, consider Nepro @ 25 mL/hr goal rate as tolerated. EN regimen will provide 1080 kcals, 49g Pro, and 447 mL free H2O per 24 hrs. EN regimen will meet ~90% estimated daily energy needs and ~47% estimated daily protein needs 3) Initiate Nephro-Susan @ 1 tb qd 4) Advance to 60g [facility] renal standard diet when medically feasible, pending FLATWORK SUPERVISOR approval 5) Follow-up with nephrology, cardiology, and pulmonology 6) Continue to monitor I&O, labs, and skin integrity Expected Outcomes/Goals: 1) patient to receive nutrition support within 7 days of NPO status 2) labs to improve 3) wound to improve 4) patient to be extubated and diet to advance 5) f/u in 2-3 days Plan discussed with: Other (DAVID Moulton) Critical Care Time(min): 35 NAE BELLAMY MD June 25, 2024 22:59
[2024-06-26] VITALS (76 sets, daily range): BP systolic 96–168; BP diastolic 26–81; PULSE 59–101; RESP 11–26; TEMP 97.5–98.7; O2SAT 89–100
[2024-06-26] MEDS: DexAMETHasone SOD PHOS 10MG/1ML VIAL INJ IV SCH (02:54)
[2024-06-26 04:23] LABS: Basophils # (auto) 0 10 ^3/uL (0-0.2); Basophils % (auto) 0.3 % (0.0-2.0); Eosinophils # (auto) 0 10 ^3/uL (0-0.8); Hematocrit 26.2 % (36.0-46.0); Hemoglobin 8.6 g/dL (12.2-16.2); Lymphocytes # (auto) 0.3 10 ^3/uL (0.4-5.4); Lymphocytes % (auto) 7.7 % (10.0-50.0); Mean Corpuscular Hemoglobin 29.3 pg (28.0-32.0); Monocytes # (auto) 0 10 ^3/uL (0-1.3); Monocytes % (auto) 0.4 % (0.0-12.0); Neutrophils % (auto) 91.6 % (37.0-80.0); Platelet Count (auto) 101 10^3/uL (140-450); Red Blood Cells 2.94 10^6/uL (4.0-5.20); Red Cell Distribution Width 16.5 % (11.8-14.3); White Blood Cell 4.4 10^3/uL (4.4-10.8)
[2024-06-26 06:38] LABS: Base Excess 1.8 mmol/L (-2.0-3.0)
[2024-06-26] MEDS: SODIUM CHL 0.9% 1000 ML BAG XX ONE (07:00)
--- NOTE | 2024-06-26 08:42 | DVH ---
INDICATION: SOB TECHNIQUE: Frontal view of the chest. COMPARISON: XY CHEST PORTABLE on DOS: 06/25/24, XY CHEST XRAY 1 VIEW on DOS: 06/25/24, XY CHEST PORTABLE on DOS: 06/24/24, XY CHEST PORTABLE on DOS: 06/23/24, XY CHEST XRAY 1 VIEW on DOS: 06/22/24, XY CHEST JAUN BLE on DOS: 06/25/24 FINDINGS: Finding: The heart is mildly enlarged.. There is mild pulmonary venous congestion. Decreased moderate right -sided pleural effusion. l left internal jugular catheter with tip in superior vena cava. Right-sherrie ed hemodialysis catheter with tip in superior vena cava. The bony thorax osteopenia. IMPRESSION: 1. Mild cardiomegaly with mild pulmonary venous congestion 2. Decreased right pleural effusion. 3. Support lines are in satisfactory
--- NOTE | 2024-06-26 10:15 | DVHPN2 ---
Progress Note - Dictate Date Seen: June 26, 2024 Medical Necessity Reason Pt with a Central, PICC or Fol: Yes The following are medically ne: Eagle Catheter Reason for eagle catheter: Strict I&O Subjective Ms. Dawkins is a 63 years old female with a history of chronic kidney failure on hemodialysis, recent spine fracture, she came to the [facility] on 06/10/2024 with a chief complaint of back pain. I have seen and examined the patient, I have discussed with her nurse, she is extubated, awake, oriented to person, place, she knows year and the month, he tells me she does not want to stay here. Her voice is very weak, her body is weak as well, She does not remember having stroke previously, but I will ask her her again on follow-up Blood culture, 06/11/2024: Urinalysis, 06/11/2024: Negative Plasma alcohol, 06/10/2024: <3 ABG, 06/08/2024: Respiratory alkalosis WBC/HB/PLT/MCV, 06/11/2024: 1.7/10.5/114/89.3, 06/15/2024: 2.2/9.7/124/87.7, 06/16/2024: 0.5/10.3/136/86.5, 06/17/2024: 7.2/9.9/152/87.3 Na, 06/10/2024: 136, 06/12/2024: 133, 06/14/2024: 125, 06/15/24: 130 BUN/CR, 05/2624: 47/7.51, 06/15/2024: 31/5.74 HGB A1c, 06/11/2024: 4.3 Liver function tests, 06/10/2024: Unremarkable TG/HDL/LDL/HDL, 06/11/2024: 63/106/47/40 Echocardiogram, 06/11/2024: LVEF is normal 50-55% Rv function normal Moderate pericardial effusion with no evidence of tamponade Large left pleural effusion Chest x-ray, 06/11/2024: Lines and tubes in satisfactory position. No significant interval change Chest x-ray, 06/15/2024: 1. Mild diffuse increased prominence of the pulmonary vasculature. 2. Lines and tubes unchanged CT head, 06/10/2024: Subacute stroke involving the left frontal lobe white matter which also may involve the left temporal lobe as well can not rule out acute features CT head 06/21/24: 1. No acute intracranial hemorrhage 2. Stable left parietal infarct unchanged from 06/10/2024. CT T-spine, 06/10/2024: No evidence of fracture in the thoracic spine CT lumbar spine, 06/10/2024: No acute fracture. Grade 1 anterolisthesis at L4-L5 with bilateral pars defects. Moderate to severe endplate degenerative changes at L4-L5, T12-L1, and L5-S1. There is severe spinal canal narrowing at L4-L5. Partially visualized moderate bilateral pleural effusions. Mild diffuse anasarca CTA head, neck, 06/10/2024: No significant vascular stenosis involving the head / neck. Moderate occlusion of the bilateral V4 segments vertebral arteries due to calcified and noncalcified plaques MRI head, 06/12/2024: 1. There is no acute intracranial process. 2. Chronic infarct in the superolateral left frontal lobe. (I saw another possible chronic stroke: Images 16) MRI lumbar spine, 06/19/2024: Severe spinal canal stenosis with severe bilateral lateral recess narrowing at L3-L4. Severe bilateral neural foramina stenosis at L3-L4 with moderate right and severe left-sided neural foramina stenosis at L4- L5. Grade 1 anterolisthesis of L4 on L5. vital signs Vital Sign Date Time Temp Pulse Resp B/P (MAP) Pulse Ox O2 Delivery O2 Flow Rate FiO2 06/26/24 07:52 85 125/44 100 Nasal BiPAP Mask 30 06/26/24 07:30 26 06/26/24 04:00 97.8 97.8 Total Intake and Output 06/25/24 06/25/24 06/26/24 15:00 23:00 07:00 Intake Total 129.16 ml 330.0 ml 162.5 ml Output Total 0 ml Balance 129.16 ml 330.0 ml 162.5 ml medications Current Medications Medications Dose Ordered Sig/Eric Route Start Time Stop Time Status Last Admin Dose Admin Ondansetron HCl 4 mg Q4HP PRN IV 06/11/24 02:00 Nitroglycerin 0.4 mg Q5MINP PRN SL 06/11/24 02:00 Albuterol 2.5 mg Q4HPRN PRN NEB 06/11/24 02:00 06/26/24 06:06 2.5 MG Ipratropium [place] 0.5 mg Q4HPRN PRN NEB 06/11/24 02:00 06/26/24 06:06 0.5 MG Pantoprazole Sodium 40 mg DAILY IV 06/11/24 10:00 06/26/24 09:21 40 MG Ceftriaxone Sodium 50 ml @ 100 mls/hr DAILY@09 IV 06/13/24 09:00 06/26/24 09:22 100 MLS/HR Acetaminophen 650 mg Q6HP PRN GT 06/11/24 23:45 06/12/24 02:48 650 MG Nicardipine HCl 250 ml @ 50 mls/hr Q5H IV 06/13/24 14:45 UNV Enteral Nutritional Formula 1,000 ml 25ML/HR GT 06/15/24 13:30 06/24/24 20:55 1,000 ML Hydralazine HCl 10 mg Q6HPRN PRN IV 06/17/24 00:00 06/23/24 06:36 10 MG Nicardipine HCl 50 mg/Sodium Chloride 250 ml @ 25 mls/hr Q10H IV 06/18/24 12:00 06/26/24 02:55 37.5 MLS/HR Morphine Sulfate 2 mg Q4HPRN PRN IV 06/19/24 15:45 06/24/24 19:39 2 MG Diagnostic Test (Pha) 1 strip Q6HR 06/20/24 00:00 06/26/24 05:30 1 STRIP Insulin Human Regular Q6HR SC 06/20/24 00:00 06/22/24 16:56 2 UNITS Dextrose 50 ml UD PRN IV 06/19/24 18:15 Dopamine HCl/ Dextrose 250 ml @ 15.544 mls/ hr Q16H5M IV 06/21/24 11:00 UNV Metoprolol Tartrate 50 mg BID PO 06/23/24 22:00 06/24/24 20:50 50 MG Amlodipine Besylate 10 mg DAILY PO 06/24/24 10:00 06/24/24 10:58 10 MG Vancomycin HCl 0 ml @ 0 mls/hr UD IV 06/23/24 20:45 Clonidine HCl 0.2 mg Q7D TD 06/25/24 14:30 06/25/24 16:35 0.2 MG Dexamethasone Sodium Phosphate 6 mg Q6H IV 06/26/24 03:00 06/26/24 15:01 06/26/24 09:21 6 MG objective The patient is well-nourished and well-developed with no distress. MENTAL STATUS: Subjective CRANIAL NERVES: Pupils are equal round and reactive to light briskly, normal external eye movement, normal sensation and motor examination in the lateral trigeminal nerve distribution, no facial weakness. SENSATION: Okay to light touch and pinprick MOTOR: Normal tone in the upper and lower extremity. Normal muscle bulk. No fasciculations. She moves the arms and legs a little bit REFLEXES: Deep tendon reflexes are symmetrical. No pathological reflexes. CEREBELLAR/COORDINATION: Deferred GAIT/STATION: deferred. laboratory and microbiology Laboratory Tests 06/26/24 03:00 06/25/24 03:00 Test 06/25/24 03:00 Range/Units Serum Glucose 78 74-106 mg/dL Problem List 2 chronic strokes in the left hemisphere per MRI and CT scan, asymptomatic Acute low back pain to rule out diskitis Acute respiratory failure Pancytopenia, better Hyponatremia Hypokalemia Chronic kidney failure Anisocoria noticed on 06/18/2024, uncertain clinical significance Looks improving Assessment/Plan Monitoring Supportive treatment ICU care IV antibiotics Aspirin 81 mg daily Lipitor 40 mg daily DVT prophylaxis GI prophylaxis Consult hematology Infectious disease on case Cardiology on case Pulmonary on case Nephrology on case CPAP trial/extubation More recommendation per clinical course This medical document was created using an electronic medical record system with simfy dictation system. Although this document has been carefully reviewed, there may still be some phonetic and typographical errors. These areas are purely typographical due to imperfections of the software programs, and do not reflect any compromise in the patient's medical care Prognosis poor Dietary Evaluation Review Comments: 1) If patient remains NPO > 7 days, consider EN/TPN to meet at least 75% estimated needs 2) If GI route is preferred, consider Nepro @ 25 mL/hr goal rate as tolerated. EN regimen will provide 1080 kcals, 49g Pro, and 447 mL free H2O per 24 hrs. EN regimen will meet ~90% estimated daily energy needs and ~47% estimated daily protein needs 3) Initiate Nephro-Susan @ 1 tb qd 4) Advance to 60g [facility] renal standard diet when medically feasible, pending DIE CASTING MACHINE OPERATOR approval 5) Follow-up with nephrology, cardiology, and pulmonology 6) Continue to monitor I&O, labs, and skin integrity Expected Outcomes/Goals: 1) patient to receive nutrition support within 7 days of NPO status 2) labs to improve 3) wound to improve 4) patient to be extubated and diet to advance 5) f/u in 2-3 days Plan discussed with: Patient, Other FORD ORTA MD June 26, 2024 10:15
--- NOTE | 2024-06-26 14:57 | DVHPN2 ---
Progress Note - Dictate Date Seen: June 26, 2024 Medical Necessity Reason Pt with a Central, PICC or Fol: Yes The following are medically ne: Eagle Catheter Reason for eagle catheter: Strict I&O Subjective Patient is successfully extubated yesterday afternoon. She was on BiPAP overnight and this morning. Currently she is on nasal cannula. Passed her swallow evaluation. vital signs Vital Sign Date Time Temp Pulse Resp B/P (MAP) Pulse Ox O2 Delivery O2 Flow Rate FiO2 06/26/24 14:50 87 22 137/59 (85) 99 06/26/24 14:00 Nasal Cannula* 2 28 06/26/24 11:47 98.2 98.2 Total Intake and Output 06/25/24 06/25/24 06/26/24 15:00 23:00 07:00 Intake Total 129.16 ml 330.0 ml 162.5 ml Output Total 0 ml Balance 129.16 ml 330.0 ml 162.5 ml medications Current Medications Medications Dose Ordered Sig/Eric Route Start Time Stop Time Status Last Admin Dose Admin Ondansetron HCl 4 mg Q4HP PRN IV 06/11/24 02:00 Nitroglycerin 0.4 mg Q5MINP PRN SL 06/11/24 02:00 Albuterol 2.5 mg Q4HPRN PRN NEB 06/11/24 02:00 06/26/24 06:06 2.5 MG Ipratropium [place] 0.5 mg Q4HPRN PRN NEB 06/11/24 02:00 06/26/24 06:06 0.5 MG Pantoprazole Sodium 40 mg DAILY IV 06/11/24 10:00 06/26/24 09:21 40 MG Ceftriaxone Sodium 50 ml @ 100 mls/hr DAILY@09 IV 06/13/24 09:00 06/26/24 09:22 100 MLS/HR Acetaminophen 650 mg Q6HP PRN GT 06/11/24 23:45 06/12/24 02:48 650 MG Nicardipine HCl 250 ml @ 50 mls/hr Q5H IV 06/13/24 14:45 UNV Enteral Nutritional Formula 1,000 ml 25ML/HR GT 06/15/24 13:30 06/24/24 20:55 1,000 ML Hydralazine HCl 10 mg Q6HPRN PRN IV 06/17/24 00:00 5/5/25 06:36 10 MG Morphine Sulfate 2 mg Q4HPRN PRN IV 06/19/24 15:45 06/24/24 19:39 2 MG Diagnostic Test (Pha) 1 strip Q6HR 06/20/24 00:00 06/26/24 11:48 1 STRIP Insulin Human Regular Q6HR SC 06/20/24 00:00 06/22/24 16:56 2 UNITS Dextrose 50 ml UD PRN IV 06/19/24 18:15 Dopamine HCl/ Dextrose 250 ml @ 15.544 mls/ hr Q16H5M IV 06/21/24 11:00 UNV Metoprolol Tartrate 50 mg BID PO 06/23/24 22:00 06/26/24 10:49 50 MG Amlodipine Besylate 10 mg DAILY PO 06/24/24 10:00 06/26/24 10:49 10 MG Vancomycin HCl 0 ml @ 0 mls/hr UD IV 06/23/24 20:45 Clonidine HCl 0.2 mg Q7D TD 06/25/24 14:30 06/25/24 16:35 0.2 MG Dexamethasone Sodium Phosphate 6 mg Q6H IV 06/26/24 03:00 06/26/24 15:01 06/26/24 09:21 6 MG objective HEENT neck supple no JVD pupils equal round react to light. Lungs fair air movement without rales wheezes. Extremities small bruise noted on right posterior thigh region. laboratory and microbiology Laboratory Tests 06/26/24 03:00 06/25/24 03:00 Test 06/25/24 03:00 Range/Units Serum Glucose 78 74-106 mg/dL Assessment/Plan 1. Acute hypoxic respiratory failure requiring intubation with mechanical ventilation secondary to metabolic encephalopathy now extubated. 2. 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 Hypertensive emergency with the end-organ involvement , off the nicardipine drip 5. End-stage renal disease on hemodialysis received hemodialysis on06/14 6. Coronary artery disease Patient passed a swallow eval. Therefore we will put her on renal diet. Continue all oral medications. Continue dialysis as she needs. Physical therapy evaluation. Social Service consultation for possible placement. Otherwise continue rest of supportive care and treatment and further clinical management per clinical course. Discussed with the nurse regarding care plan. Dr. Mccollum incoming hospitalist will take over patient's care from tomorrow and further manage. Dietary Evaluation Review Comments: 1) If patient remains NPO > 7 days, consider EN/TPN to meet at least 75% estimated needs 2) If GI route is preferred, consider Nepro @ 25 mL/hr goal rate as tolerated. EN regimen will provide 1080 kcals, 49g Pro, and 447 mL free H2O per 24 hrs. EN regimen will meet ~90% estimated daily energy needs and ~47% estimated daily protein needs 3) Initiate Nephro-Susan @ 1 tb qd 4) Advance to 60g [facility] renal standard diet when medically feasible, pending CALL BOX WIRER approval 5) Follow-up with nephrology, cardiology, and pulmonology 6) Continue to monitor I&O, labs, and skin integrity Expected Outcomes/Goals: 1) patient to receive nutrition support within 7 days of NPO status 2) labs to improve 3) wound to improve 4) patient to be extubated and diet to advance 5) f/u in 2-3 days Plan discussed with: BRIANNE Gilbert MD June 26, 2024 14:57
[2024-06-26] MEDS ORDERED: HEPARIN SODIUM (PORCINE) 5000 UNITS/ML 1ML VIAL IV PRN (15:30)
--- NOTE | 2024-06-26 17:36 | DVHPN2 ---
Progress Note - Dictate Date Seen: June 26, 2024 Medical Necessity Reason Pt with a Central, PICC or Fol: Yes The following are medically ne: Eagle Catheter Reason for eagle catheter: Strict I&O Subjective Patient complains of low back pain. vital signs Vital Sign Date Time Temp Pulse Resp B/P (MAP) Pulse Ox O2 Delivery O2 Flow Rate FiO2 06/26/24 17:01 94 20 145/45 (78) 95 06/26/24 16:15 98.7 98.7 06/26/24 16:00 Nasal Cannula* 2 28 Total Intake and Output 06/25/24 06/25/24 06/26/24 15:00 23:00 07:00 Intake Total 129.16 ml 330.0 ml 162.5 ml Output Total 0 ml Balance 129.16 ml 330.0 ml 162.5 ml medications Current Medications Medications Dose Ordered Sig/Eric Route Start Time Stop Time Status Last Admin Dose Admin Ondansetron HCl 4 mg Q4HP PRN IV 06/11/24 02:00 Nitroglycerin 0.4 mg Q5MINP PRN SL 06/11/24 02:00 Albuterol 2.5 mg Q4HPRN PRN NEB 06/11/24 02:00 06/26/24 06:06 2.5 MG Ipratropium [place] 0.5 mg Q4HPRN PRN NEB 06/11/24 02:00 06/26/24 06:06 0.5 MG Ceftriaxone Sodium 50 ml @ 100 mls/hr DAILY@09 IV 06/13/24 09:00 06/26/24 09:22 100 MLS/HR Acetaminophen 650 mg Q6HP PRN GT 06/11/24 23:45 06/12/24 02:48 650 MG Nicardipine HCl 250 ml @ 50 mls/hr Q5H IV 06/13/24 14:45 UNV Hydralazine HCl 10 mg Q6HPRN PRN IV 06/17/24 00:00 06/23/24 06:36 10 MG Morphine Sulfate 2 mg Q4HPRN PRN IV 06/19/24 15:45 06/26/24 16:14 2 MG Diagnostic Test (Pha) 1 strip Q6HR 06/20/24 00:00 06/26/24 17:25 1 STRIP Insulin Human Regular Q6HR SC 06/20/24 00:00 06/26/24 17:26 2 UNITS Dextrose 50 ml UD PRN IV 06/19/24 18:15 Dopamine HCl/ Dextrose 250 ml @ 15.544 mls/ hr Q16H5M IV 06/21/24 11:00 UNV Metoprolol Tartrate 50 mg BID PO 06/23/24 22:00 06/26/24 10:49 50 MG Amlodipine Besylate 10 mg DAILY PO 06/24/24 10:00 06/26/24 10:49 10 MG Vancomycin HCl 0 ml @ 0 mls/hr UD IV 06/23/24 20:45 Clonidine HCl 0.2 mg Q7D TD 06/25/24 14:30 06/25/24 16:35 0.2 MG Famotidine 10 mg EOD PO 06/27/24 10:00 Heparin Sodium (Porcine) 2,300 units AMANDA PRN IV 06/26/24 15:30 objective HEENT: Oral mucosa dry Pulmonary: Diminished lung sounds bilaterally Cardiovascular S1-S2, no S3 or S4 Abdomen: Bowel sounds positive, soft no rebound tenderness Skin: No rash Neurological: Alert and oriented Hemodialysis access right upper chest CVC laboratory and microbiology Laboratory Tests 06/26/24 03:00 06/25/24 03:00 Test 06/25/24 03:00 Range/Units Serum Glucose 78 74-106 mg/dL Assessment/Plan Assessment: End-stage renal disease on HD Hypokalemia Anemia of renal disease. Acute hypoxic Respiratory failure, on mechanical ventilation HTN urgency Subacute stroke. T-spine fracture. Leukopenia Plan: Hemodialysis tomorrow to follow her usual outpatient schedule Sunday Fluid restriction less than 1 L per day On metoprolol 50 mg twice a day, amlodipine ID consult appreciated Continue IV antibiotics ANANTH post HD as needed, goal Hb: 10-11 g/dl Thank you very much for allowing us to participate in the care of this patient. Dietary Evaluation Review Comments: 1) If patient remains NPO > 7 days, consider EN/TPN to meet at least 75% estimated needs 2) If GI route is preferred, consider Nepro @ 25 mL/hr goal rate as tolerated. EN regimen will provide 1080 kcals, 49g Pro, and 447 mL free H2O per 24 hrs. EN regimen will meet ~90% estimated daily energy needs and ~47% estimated daily protein needs 3) Initiate Nephro-Susan @ 1 tb qd 4) Advance to [facility] renal standard diet when medically feasible, pending IMAGER approval 5) Follow-up with nephrology, cardiology, and pulmonology 6) Continue to monitor I&O, labs, and skin integrity Expected Outcomes/Goals: 1) patient to receive nutrition support within 7 days of NPO status 2) labs to improve 3) wound to improve 4) patient to be extubated and diet to advance 5) f/u in 2-3 days Plan discussed with: Patient JUAN R MARIEE MD June 26, 2024 17:36
[2024-06-26] MEDS: EPOETIN ALFA-EPBX 10,000 UNIT/1ML VIAL SC ONE (20:21)
--- NOTE | 2024-06-26 20:48 | DVHPN2 ---
Progress Note - Dictate Date Seen: June 26, 2024 Medical Necessity Reason Pt with a Central, PICC or Fol: Yes The following are medically ne: Eagle Catheter Reason for eagle catheter: Strict I&O Subjective S/P extubation yesterday afternoon. She was on BiPAP overnight and this morning. Currently she is on nasal cannula. Passed her swallow evaluation. vital signs Vital Sign Date Time Temp Pulse Resp B/P (MAP) Pulse Ox O2 Delivery O2 Flow Rate FiO2 06/26/24 20:20 95 162/81 06/26/24 20:19 18 06/26/24 19:00 95 06/26/24 18:00 Nasal Cannula* 2 28 06/26/24 16:15 98.7 98.7 Total Intake and Output 06/25/24 06/25/24 06/26/24 15:00 23:00 07:00 Intake Total 129.16 ml 330.0 ml 162.5 ml Output Total 0 ml Balance 129.16 ml 330.0 ml 162.5 ml medications Current Medications Medications Dose Ordered Sig/Eric Route Start Time Stop Time Status Last Admin Dose Admin Ondansetron HCl 4 mg Q4HP PRN IV 06/11/24 02:00 Nitroglycerin 0.4 mg Q5MINP PRN SL 06/11/24 02:00 Albuterol 2.5 mg Q4HPRN PRN NEB 06/11/24 02:00 06/26/24 06:06 2.5 MG Ipratropium [place] 0.5 mg Q4HPRN PRN NEB 06/11/24 02:00 06/26/24 06:06 0.5 MG Ceftriaxone Sodium 50 ml @ 100 mls/hr DAILY@09 IV 06/13/24 09:00 06/26/24 09:22 100 MLS/HR Acetaminophen 650 mg Q6HP PRN GT 06/11/24 23:45 06/12/24 02:48 650 MG Nicardipine HCl 250 ml @ 50 mls/hr Q5H IV 06/13/24 14:45 UNV Hydralazine HCl 10 mg Q6HPRN PRN IV 06/17/24 00:00 06/26/24 18:19 10 MG Morphine Sulfate 2 mg Q4HPRN PRN IV 06/19/24 15:45 06/26/24 20:19 2 MG Diagnostic Test (Pha) 1 strip Q6HR 06/20/24 00:00 06/26/24 17:25 1 STRIP Insulin Human Regular Q6HR SC 06/20/24 00:00 06/26/24 17:26 2 UNITS Dextrose 50 ml UD PRN IV 06/19/24 18:15 Dopamine HCl/ Dextrose 250 ml @ 15.544 mls/ hr Q16H5M IV 06/21/24 11:00 UNV Metoprolol Tartrate 50 mg BID PO 06/23/24 22:00 06/26/24 20:20 50 MG Amlodipine Besylate 10 mg DAILY PO 06/24/24 10:00 06/26/24 10:49 10 MG Vancomycin HCl 0 ml @ 0 mls/hr UD IV 06/23/24 20:45 Clonidine HCl 0.2 mg Q7D TD 06/25/24 14:30 06/25/24 16:35 0.2 MG Famotidine 10 mg EOD PO 06/27/24 10:00 Heparin Sodium (Porcine) 2,300 units AMANDA PRN IV 06/26/24 15:30 objective General Appearance: intubated and sedated HEENT: normal Respiratory: good air entry Cardiovascular: Regular rate, Normal S1, Normal S2 Abdominal: Normal bowel sounds, Soft, No tenderness Extremities: Other (BLE pitting edema 2+) Skin: No rashes Neuro: Other (Altered non arousable) Psych/Mental Status: calm laboratory and microbiology Laboratory Tests 06/26/24 03:00 06/25/24 03:00 Test 06/25/24 03:00 Range/Units Serum Glucose 78 74-106 mg/dL Assessment/Plan Patient is a 63-year-old female presents to the hospital with: Leucopenia resolved Vertebral Discitis subacute CVA Acute encephalopathy Acute hypoxic respiratory S/P intubation on mechanical ventilator ESRD on HD Fluid overload Hypertensive emergency Hx T12 compression fracture Recommendations: WBC normal s/p extubation. Vancomycin restarted on 06/23 - Ongoing MRI lumbar spine done 06/19 is wo contrast which is not very ideal for infection. there is no comment about discitis or phlegmon. however, MRI in [facility] on 05/22 commented about discitis. would consider resuming and completing the course for now since she already has been on antibiotics since 05/22. tagged wbc scan may be a better study since she on HD, mri w contrast might be difficult. reviewed [facility] records in detail: She had low wbc from 03/23/2024 with 3.4 with intermittent 1.8 and she has been admitted 2-3 times and wbc is in same range. no work up done She had mri spine with on 05/22 shows hypointense T1 and hyperintense T2 at L3-L4 concerning for discitis osteomyelitis. Hyperintense T2 signal along epidural space L3-L4 for 5mm AP diameter concerning for Phlegmon. ID Dr Carlisle saw the patient and recommended IV Vancomycin for 6 weeks. There is no positive blood cultures or biopsy done. His notes on 05/23 recommended 6 weeks of IV vancomycin ( switched from ceftriaxone for low wbc). recommend Continuing IV Vancomycin/ Ceftriaxone for 6 weeks since leucopenia was present in prior admissions too, its unlikely due to Vancomycin discussed with nephrology, reviewed old labs, back in 2022 also her wbc was in 3k. unsure if she had work up done platelets were in 200 in 2023 but later its been low too MRI showed Severe spinal canal stenosis with severe bilateral lateral recess narrowing at L3-L4. Severe bilateral neural foramina stenosis at L3-L4 with moderate right and severe left-sided neural foramina stenosis at L4-L5. Grade 1 anterolisthesis of L4 on L5. Continue IV Ceftriaxone for now; v Monitor Vancomycin Trough, on HD 06/16, Vancomycin Random is 27 on MV Antibiotic status: Ceftriaxone IV [Started on 06/11 - Ongoing] Vancomycin IV [Restarted on 06/23 - Ongoing] 06/11, Respiratory culture preliminary showed Normal Oropharyngeal Trish 06/11, Blood culture showed no growth 06/13, MRSA screening came back negative Review of Imagin/24, Chest x-ray showed Cardiomegaly with mild congestion. Prognosis guarded plan discussed with attending physician Thank you for consult. Dietary Evaluation Review Comments: 1) If patient remains NPO > 7 days, consider EN/TPN to meet at least 75% estimated needs 2) If GI route is preferred, consider Nepro @ 25 mL/hr goal rate as tolerated. EN regimen will provide 1080 kcals, 49g Pro, and 447 mL free H2O per 24 hrs. EN regimen will meet ~90% estimated daily energy needs and ~47% estimated daily protein needs 3) Initiate Nephro-Susan @ 1 tb qd 4) Advance to 60g [facility] renal standard diet when medically feasible, pending [employer] approval 5) Follow-up with nephrology, cardiology, and pulmonology 6) Continue to monitor I&O, labs, and skin integrity Expected Outcomes/Goals: 1) patient to receive nutrition support within 7 days of NPO status 2) labs to improve 3) wound to improve 4) patient to be extubated and diet to advance 5) f/u in 2-3 days Plan discussed with: Other GONZÁLEZ BAUER MD June 26, 2024 20:48
[2024-06-26] MEDS: VANCOMYCIN 750MG KIT 100 ML IV ONE (21:59)
[2024-06-26] MEDS: GABAPENTIN 100 MG CAP PO SCH (22:39)
[2024-06-26] MEDS: HYDROmorphone HCL 2 MG/ML VL/or syr IV ONE (22:40)
--- NOTE | 2024-06-26 23:48 | DVHPN2 ---
Progress Note - Dictate Date Seen: June 26, 2024 Medical Necessity Reason Pt with a Central, PICC or Fol: Yes The following are medically ne: Eagle Catheter Reason for eagle catheter: Strict I&O Subjective Patient was seen and evaluated in follow up in the ICU. Patient was successfully extubated yesterday evening. She is on 2 LPM NC. Overnight, the patient developed hemoptysis. HGB 8.6, HCT 26.2, [employer] 5.11. Chest x-ray shows mild cardiomegaly with mild pulmonary venous congestion. Decreased right pleural effusion. vital signs Vital Sign Date Time Temp Pulse Resp B/P (MAP) Pulse Ox O2 Delivery O2 Flow Rate FiO2 06/26/24 11:47 98.2 86 12 141/53 (82) 96 98.2 06/26/24 10:00 Nasal Cannula* 2 28 Total Intake and Output 06/25/24 06/25/24 06/26/24 15:00 23:00 07:00 Intake Total 129.16 ml 330.0 ml 162.5 ml Output Total 0 ml Balance 129.16 ml 330.0 ml 162.5 ml medications Current Medications Medications Dose Ordered Sig/Eric Route Start Time Stop Time Status Last Admin Dose Admin Ondansetron HCl 4 mg Q4HP PRN IV 06/11/24 02:00 Nitroglycerin 0.4 mg Q5MINP PRN SL 06/11/24 02:00 Albuterol 2.5 mg Q4HPRN PRN NEB 06/11/24 02:00 06/26/24 06:06 2.5 MG Ipratropium [place] 0.5 mg Q4HPRN PRN NEB 06/11/24 02:00 06/26/24 06:06 0.5 MG Pantoprazole Sodium 40 mg DAILY IV 06/11/24 10:00 06/26/24 09:21 40 MG Ceftriaxone Sodium 50 ml @ 100 mls/hr DAILY@09 IV 06/13/24 09:00 06/26/24 09:22 100 MLS/HR Acetaminophen 650 mg Q6HP PRN GT 06/11/24 23:45 06/12/24 02:48 650 MG Nicardipine HCl 250 ml @ 50 mls/hr Q5H IV 06/13/24 14:45 UNV Enteral Nutritional Formula 1,000 ml 25ML/HR GT 06/15/24 13:30 06/24/24 20:55 1,000 ML Hydralazine HCl 10 mg Q6HPRN PRN IV 06/17/24 00:00 06/23/24 06:36 10 MG Nicardipine HCl 50 mg/Sodium Chloride 250 ml @ 25 mls/hr Q10H IV 06/18/24 12:00 06/26/24 02:55 37.5 MLS/HR Morphine Sulfate 2 mg Q4HPRN PRN IV 06/19/24 15:45 06/24/24 19:39 2 MG Diagnostic Test (Pha) 1 strip Q6HR 06/20/24 00:00 06/26/24 11:48 1 STRIP Insulin Human Regular Q6HR SC 06/20/24 00:00 06/22/24 16:56 2 UNITS Dextrose 50 ml UD PRN IV 06/19/24 18:15 Dopamine HCl/ Dextrose 250 ml @ 15.544 mls/ hr Q16H5M IV 06/21/24 11:00 UNV Metoprolol Tartrate 50 mg BID PO 06/23/24 22:00 06/26/24 10:49 50 MG Amlodipine Besylate 10 mg DAILY PO 06/24/24 10:00 06/26/24 10:49 10 MG Vancomycin HCl 0 ml @ 0 mls/hr UD IV 06/23/24 20:45 Clonidine HCl 0.2 mg Q7D TD 06/25/24 14:30 06/25/24 16:35 0.2 MG Dexamethasone Sodium Phosphate 6 mg Q6H IV 06/26/24 03:00 06/26/24 15:01 06/26/24 09:21 6 MG objective GENERAL: Alert and oriented x 3. No acute distress. EYES: PERRL, EOMI. Anicteric. HENT: Moist mucous membranes. LUNGS: Decreased breath sounds. CARDIOVASCULAR: Regular rate and rhythm. ABDOMEN: Soft, nontender and nondistended. EXTREMITIES: No edema. NEUROLOGIC: No focal neurological deficits. SKIN: Warm, dry. laboratory and microbiology Laboratory Tests 06/26/24 03:00 06/25/24 03:00 Test 06/25/24 03:00 Range/Units Serum Glucose 78 74-106 mg/dL Problem List Acute CVA. Hypertensive emergency. Questionable coronary artery disease. Moderate pericardial effusion. Acute hypoxic respiratory failure. End-stage renal disease on hemodialysis. History of T12 compression fracture. Assessment/Plan Continued all current supportive medical care. Amlodipine, Clonidine. IV antibiotics as ordered. IV Hydralazine for SBP >160. Metoprolol. Morphine for pain management. GI prophylactics. Additional plan as per the hospital course. Critical care time of 45 minutes provided to include time spent evaluation of patient at bedside, when appropriate patient/family education for diagnosis, treatment plan, review of pertinent medical information and discussion of care with specialty providers and PCP. Dietary Evaluation Review Comments: 1) If patient remains NPO > 7 days, consider EN/TPN to meet at least 75% estimated needs 2) If GI route is preferred, consider Nepro @ 25 mL/hr goal rate as tolerated. EN regimen will provide 1080 kcals, 49g Pro, and 447 mL free H2O per 24 hrs. EN regimen will meet ~90% estimated daily energy needs and ~47% estimated daily protein needs 3) Initiate Nephro-Susan @ 1 tb qd 4) Advance to 60g [facility] renal standard diet when medically feasible, pending [facility] approval 5) Follow-up with nephrology, cardiology, and pulmonology 6) Continue to monitor I&O, labs, and skin integrity Expected Outcomes/Goals: 1) patient to receive nutrition support within 7 days of NPO status 2) labs to improve 3) wound to improve 4) patient to be extubated and diet to advance 5) f/u in 2-3 days Plan discussed with: Patient SHAUN RAMOS MD June 26, 2024 11:56
--- NOTE | 2024-06-26 23:49 | DVHPN2 ---
Progress Note - Dictate Date Seen: June 26, 2024 Medical Necessity Reason Pt with a Central, PICC or Fol: Yes The following are medically ne: Eagle Catheter Reason for eagle catheter: Strict I&O Subjective Patient seen and examined at bedside. On supplemental oxygen Overnight events reviewed. vital signs Vital Sign Date Time Temp Pulse Resp B/P (MAP) Pulse Ox O2 Delivery O2 Flow Rate FiO2 06/26/24 22:40 86 13 164/74 06/26/24 19:00 95 06/26/24 18:17 Nasal Cannula* 2 28 06/26/24 16:15 98.7 98.7 Total Intake and Output 06/25/24 06/25/24 06/26/24 15:00 23:00 07:00 Intake Total 129.16 ml 330.0 ml 162.5 ml Output Total 0 ml Balance 129.16 ml 330.0 ml 162.5 ml medications Current Medications Medications Dose Ordered Sig/Eric Route Start Time Stop Time Status Last Admin Dose Admin Ondansetron HCl 4 mg Q4HP PRN IV 06/11/24 02:00 Nitroglycerin 0.4 mg Q5MINP PRN SL 06/11/24 02:00 Albuterol 2.5 mg Q4HPRN PRN NEB 06/11/24 02:00 06/26/24 06:06 2.5 MG Ipratropium [place] 0.5 mg Q4HPRN PRN NEB 06/11/24 02:00 06/26/24 06:06 0.5 MG Ceftriaxone Sodium 50 ml @ 100 mls/hr DAILY@09 IV 06/13/24 09:00 06/26/24 09:22 100 MLS/HR Acetaminophen 650 mg Q6HP PRN GT 06/11/24 23:45 06/12/24 02:48 650 MG Nicardipine HCl 250 ml @ 50 mls/hr Q5H IV 06/13/24 14:45 UNV Hydralazine HCl 10 mg Q6HPRN PRN IV 06/17/24 00:00 06/26/24 18:19 10 MG Morphine Sulfate 2 mg Q4HPRN PRN IV 06/19/24 15:45 Hold 06/26/24 20:19 2 MG Diagnostic Test (Pha) 1 strip Q6HR 06/20/24 00:00 06/26/24 22:57 1 STRIP Insulin Human Regular Q6HR SC 06/20/24 00:00 06/26/24 22:58 3 UNITS Dextrose 50 ml UD PRN IV 06/19/24 18:15 Dopamine HCl/ Dextrose 250 ml @ 15.544 mls/ hr Q16H5M IV 06/21/24 11:00 UNV Metoprolol Tartrate 50 mg BID PO 06/23/24 22:00 06/26/24 20:20 50 MG Amlodipine Besylate 10 mg DAILY PO 06/24/24 10:00 06/26/24 10:49 10 MG Vancomycin HCl 0 ml @ 0 mls/hr UD IV 06/23/24 20:45 Clonidine HCl 0.2 mg Q7D TD 06/25/24 14:30 06/25/24 16:35 0.2 MG Famotidine 10 mg EOD PO 06/27/24 10:00 Heparin Sodium (Porcine) 2,300 units AMANDA PRN IV 06/26/24 15:30 Acetaminophen/ Hydrocodone Bitart 1 tab Q6HPRN PRN PO 06/26/24 22:30 Hold Gabapentin 100 mg TID PO 06/26/24 22:00 06/26/24 22:39 100 MG Baclofen 10 mg DAILY PO 06/27/24 10:00 objective Gen.: Patient lying in bed in no apparent distress. On supplemental oxygen Head: Normocephalic, atraumatic. Eyes: EOMI/PERRLA. Ears: Normal hearing. Normal anatomy. Neck/trachea: Trachea midline, supple. Nose: Normal external anatomy. Mouth: Moist mucous membranes. Chest: Decreased air entry bilaterally. No wheezing or rhonchi. Cardiovascular: Positive S1, positive S2. Regular rate and rhythm. Abdomen: Positive bowel sounds in all 4 quadrants. Soft, non-tender, non- distended. : Deferred. Rectal: Deferred. Skin: Warm, dry. Intact. Extremities: 2+ radial pulses bilaterally. No lower extremity edema. Neuro: Awake, alert, oriented x3. No gross motor or sensory deficits. Cranial nerves II through XII intact. Gait not assessed laboratory and microbiology Laboratory Tests 06/26/24 03:00 06/25/24 03:00 Test 06/25/24 03:00 Range/Units Serum Glucose 78 74-106 mg/dL Assessment/Plan Impression: Acute hypoxic respiratory failure Mechanical ventilation, s/p extubation Acute CVA Acute encephalopathy ESRD, on hemodialysis Pulmonary edema Shock Obesity BMI 33.3 Events: Patient currently transitioned off BiPAP On 2 LPM NC supplemental oxygen Taper O2 as tolerated Add humidity to O2. Chest x-ray shows mild cardiomegaly with mild pulmonary venous congestion. Decreased right pleural effusion. Patient passed bedside swallow eval. Head of bed elevation Aspiration precautions Continue antibiotics Continue bronchodilators Off nicardipine drip. Pain control Avoid oversedation Protonix for GI prophylaxis HD per Nephrology - s/p HD today with 3 liters removed. Monitor renal function Monitor electrolytes. Supplement as necessary. Monitor ins and outs. Labs and imaging reviewed Plan: S/p extubation Supplemental oxygen Titrate FiO2 to keep O2 sats above 92%. Monitor blood pressure Continue antibiotics. F/u cultures. Continue bronchodilators Accu-Cheks, ISS PRN Echo reviewed Cardiology recs appreciated Pressors as necessary for hemodynamic support Titrate to keep mean arterial pressure greater than 65 mmHg. HD per Nephrology Monitor renal function Monitor electrolytes. Supplement as necessary. Monitor ins and outs. Maintain euvolemia. GI prophylaxis. DVT prophylaxis. Prognosis: Poor given patient's multiple co-morbidities. Condition: Critical Rest of plan per hospitalist and other consultants. A total of 35 minutes of critical care time was spent reviewing the patient record, examining the patient, making a diagnostic and therapeutic plan, discussing this plan with the medical personnel, following up on diagnostic studies and following the patient for clinical stability excluding any and all procedures. At least 50% of this time was spent in direct, [id number] contact. Thank you, LISA Garcia, for allowing me to participate in this patient's care. Further recommendations will depend on the patient's clinical course. Please do not hesitate to contact me if you have any questions or concerns. This medical document was created using an electronic medical record system with [employer] dictation system. Although these documentations are being carefully reviewed, there may still be some phonetic and typographical changes. The errors are purely typographical, due to imperfection on the software program, and do not reflect any compromise in the patient's medical care. Dietary Evaluation Review Comments: 1) If patient remains NPO > 7 days, consider EN/TPN to meet at least 75% estimated needs 2) If GI route is preferred, consider Nepro @ 25 mL/hr goal rate as tolerated. EN regimen will provide 1080 kcals, 49g Pro, and 447 mL free H2O per 24 hrs. EN regimen will meet ~90% estimated daily energy needs and ~47% estimated daily protein needs 3) Initiate Nephro-Susan @ 1 tb qd 4) Advance to [facility] standard diet when medically feasible, pending [employer] ASSOCIATE approval 5) Follow-up with nephrology, cardiology, and pulmonology 6) Continue to monitor I&O, labs, and skin integrity Expected Outcomes/Goals: 1) patient to receive nutrition support within 7 days of NPO status 2) labs to improve 3) wound to improve 4) patient to be extubated and diet to advance 5) f/u in 2-3 days Plan discussed with: Other (DAVID Sandoval) Critical Care Time(min): 35 NAE BELLAMY MD June 26, 2024 23:49
[2024-06-27] VITALS (46 sets, daily range): BP systolic 101–187; BP diastolic 35–79; PULSE 58–95; RESP 10–24; TEMP 98.2–98.4; O2SAT 90–100
[2024-06-27] MEDS: HYDROcodone-ACET 5/325MG TAB PO PRN (00:47)
[2024-06-27] MEDS: MORPHINE SULFATE INJ 2 MG/ml SYRG IV PRN (01:49)
[2024-06-27 02:22] LABS: Base Excess 2.8 mmol/L (-2.0-3.0)
[2024-06-27] MEDS: NIFEdipine ER 30 MG TAB PO SCH (02:34)
[2024-06-27 03:58] LABS: Basophils # (auto) 0 10 ^3/uL (0-0.2); Basophils % (auto) 0.2 % (0.0-2.0); Eosinophils # (auto) 0 10 ^3/uL (0-0.8); Hematocrit 26.8 % (36.0-46.0); Hemoglobin 9.2 g/dL (12.2-16.2); Lymphocytes # (auto) 0.3 10 ^3/uL (0.4-5.4); Lymphocytes % (auto) 5.7 % (10.0-50.0); Mean Corpuscular Hemoglobin 30.3 pg (28.0-32.0); Mean Corpuscular Hgb Conc. 34.2 g/dL (32.0-36.0); Mean Corpuscular Volume 88.5 fL (80.0-100.0); Monocytes # (auto) 0.1 10 ^3/uL (0-1.3); Monocytes % (auto) 2.3 % (0.0-12.0); Neutrophils # (auto) 4.7 10 ^3/uL (1.6-8.6); Neutrophils % (auto) 91.8 % (37.0-80.0); Nucleated Red Blood Cells % 0.2 %; Platelet Count (auto) 155 10^3/uL (140-450); Red Blood Cells 3.02 10^6/uL (4.0-5.20); Red Cell Distribution Width 17.7 % (11.8-14.3); White Blood Cell 5.1 10^3/uL (4.4-10.8)
[2024-06-27 03:59] LABS: Potassium 3.7 mmol/L (3.5-5.1); Sodium 141 mmol/L (136-145)
[2024-06-27 04:00] LABS: Anion Gap 15 (5-15); Calcium 9.9 mg/dL (8.7-10.4); Carbon Dioxide 28 mmol/L (20-31)
[2024-06-27 04:05] LABS: BUN/Creatinine Ratio 7.4 (10.0-20.0)
[2024-06-27 04:08] LABS: % Iron Saturation 80.4 % (15-50)
[2024-06-27 04:12] LABS: Blood Urea Nitrogen 32 mg/dL (9-23); Chloride 98 mmol/L (98-107); Glucose 146 mg/dL (74-106)
[2024-06-27] MEDS: SODIUM CHL 0.9% 1000 ML BAG XX ONE (07:00)
[2024-06-27] MEDS: BACLOFEN 10 MG TAB PO SCH (11:29)
[2024-06-27] MEDS: FAMOTIDINE 20 MG TAB PO SCH (11:30)
--- NOTE | 2024-06-27 11:47 | DVHPN2 ---
Progress Note - Dictate Date Seen: June 27, 2024 Medical Necessity Reason Pt with a Central, PICC or Fol: Yes The following are medically ne: Eagle Catheter Reason for eagle catheter: Strict I&O Subjective Patient reports low back pain. S/P extubation on 06/25. Currently she is on nasal cannula 4L. vital signs Vital Sign Date Time Temp Pulse Resp B/P (MAP) Pulse Ox O2 Delivery O2 Flow Rate FiO2 06/27/24 10:00 16 99 Nasal Cannula* 2 28 06/27/24 10:00 75 06/27/24 07:00 180/77 (111) 06/27/24 04:00 98.4 98.4 Total Intake and Output 06/26/24 06/26/24 06/27/24 15:00 23:00 07:00 Intake Total 100 ml 130 ml 200 ml Output Total 3000 ml Balance 100 ml -2870 ml 200 ml medications Current Medications Medications Dose Ordered Sig/Eric Route Start Time Stop Time Status Last Admin Dose Admin Ondansetron HCl 4 mg Q4HP PRN IV 06/11/24 02:00 Nitroglycerin 0.4 mg Q5MINP PRN SL 06/11/24 02:00 Albuterol 2.5 mg Q4HPRN PRN NEB 06/11/24 02:00 06/26/24 06:06 2.5 MG Ipratropium [place] 0.5 mg Q4HPRN PRN NEB 06/11/24 02:00 06/26/24 06:06 0.5 MG Ceftriaxone Sodium 50 ml @ 100 mls/hr DAILY@09 IV 06/13/24 09:00 06/26/24 09:22 100 MLS/HR Acetaminophen 650 mg Q6HP PRN GT 06/11/24 23:45 06/12/24 02:48 650 MG Nicardipine HCl 250 ml @ 50 mls/hr Q5H IV 06/13/24 14:45 UNV Hydralazine HCl 10 mg Q6HPRN PRN IV 06/17/24 00:00 06/27/24 06:59 10 MG Diagnostic Test (Pha) 1 strip Q6HR 06/20/24 00:00 06/27/24 05:32 1 STRIP Insulin Human Regular Q6HR SC 06/20/24 00:00 06/27/24 05:39 2 UNITS Dextrose 50 ml UD PRN IV 06/19/24 18:15 Dopamine HCl/ Dextrose 250 ml @ 15.544 mls/ hr Q16H5M IV 06/21/24 11:00 UNV Metoprolol Tartrate 50 mg BID PO 06/23/24 22:00 06/26/24 20:20 50 MG Amlodipine Besylate 10 mg DAILY PO 06/24/24 10:00 06/26/24 10:49 10 MG Vancomycin HCl 0 ml @ 0 mls/hr UD IV 06/23/24 20:45 Clonidine HCl 0.2 mg Q7D TD 06/25/24 14:30 06/25/24 16:35 0.2 MG Famotidine 10 mg EOD PO 06/27/24 10:00 Heparin Sodium (Porcine) 2,300 units AMANDA PRN IV 06/26/24 15:30 Acetaminophen/ Hydrocodone Bitart 1 tab Q6HPRN PRN PO 06/26/24 22:30 06/27/24 07:02 1 TAB Gabapentin 100 mg TID PO 06/26/24 22:00 06/27/24 05:31 100 MG Baclofen 10 mg DAILY PO 06/27/24 10:00 Morphine Sulfate 2 mg Q4HPRN PRN IV 06/27/24 00:45 06/27/24 05:51 2 MG Nifedipine 90 mg DAILY PO 06/27/24 02:00 06/27/24 02:34 90 MG objective General Appearance: comfortable HEENT: normal Respiratory: good air entry Cardiovascular: Regular rate, Normal S1, Normal S2 Abdominal: Normal bowel sounds, Soft, No tenderness Extremities: Other (BLE pitting edema 2+) Skin: No rashes Neuro: sleepy laboratory and microbiology Laboratory Tests 06/27/24 03:20 Test 06/27/24 03:20 Range/Units Serum Glucose 146 H 74-106 mg/dL Assessment/Plan Patient is a 63-year-old female presents to the hospital with: Leucopenia resolved Vertebral Discitis subacute CVA Acute encephalopathy Acute hypoxic respiratory S/P intubation on mechanical ventilator ESRD on HD Fluid overload Hypertensive emergency Hx T12 compression fracture Recommendations: WBC normal s/p extubation. Vancomycin restarted on 06/23 - Ongoing MRI lumbar spine done 06/19 is wo contrast which is not very ideal for infection. there is no comment about discitis or phlegmon. however, MRI in [facility] on 05/22 commented about discitis. would consider resuming and completing the course for now since she already has been on antibiotics since 05/22. tagged wbc scan may be a better study since she on HD, mri w contrast might be difficult. reviewed [facility] records in detail: She had low wbc from 03/23/2024 with 3.4 with intermittent 1.8 and she has been admitted 2-3 times and wbc is in same range. no work up done She had mri spine with on 05/22 shows hypointense T1 and hyperintense T2 at L3-L4 concerning for discitis osteomyelitis. Hyperintense T2 signal along epidural space L3-L4 for 5mm AP diameter concerning for Phlegmon. ID Dr Carlisle saw the patient and recommended IV Vancomycin for 6 weeks. There is no positive blood cultures or biopsy done. His notes on 05/23 recommended 6 weeks of IV vancomycin ( switched from ceftriaxone for low wbc). recommend Continuing IV Vancomycin/ Ceftriaxone for 6 weeks since leucopenia was present in prior admissions too, its unlikely due to Vancomycin discussed with nephrology, reviewed old labs, back in 2022 also her wbc was in 3k. unsure if she had work up done platelets were in 200 in 2023 but later its been low too MRI showed Severe spinal canal stenosis with severe bilateral lateral recess narrowing at L3-L4. Severe bilateral neural foramina stenosis at L3-L4 with moderate right and severe left-sided neural foramina stenosis at L4-L5. Grade 1 anterolisthesis of L4 on L5. Continue IV Ceftriaxone for now; v Monitor Vancomycin Trough, on HD 06/16, Vancomycin Random is 27 on MV Antibiotic status: Ceftriaxone IV [Started on 06/11 - Ongoing] Vancomycin IV [Restarted on 06/23 - Ongoing] 06/11, Respiratory culture preliminary showed Normal Oropharyngeal Trish 06/11, Blood culture showed no growth 06/13, MRSA screening came back negative Review of Imagin/24, Chest x-ray showed Cardiomegaly with mild congestion. Prognosis guarded plan discussed with attending physician Thank you for consult. Dietary Evaluation Review Comments: 1) If patient remains NPO > 7 days, consider EN/TPN to meet at least 75% estimated needs 2) If GI route is preferred, consider Nepro @ 25 mL/hr goal rate as tolerated. EN regimen will provide 1080 kcals, 49g Pro, and 447 mL free H2O per 24 hrs. EN regimen will meet ~90% estimated daily energy needs and ~47% estimated daily protein needs 3) Initiate Nephro-Susan @ 1 tb qd 4) Advance to [facility] standard diet when medically feasible, pending [facility] approval 5) Follow-up with nephrology, cardiology, and pulmonology 6) Continue to monitor I&O, labs, and skin integrity Expected Outcomes/Goals: 1) patient to receive nutrition support within 7 days of NPO status 2) labs to improve 3) wound to improve 4) patient to be extubated and diet to advance 5) f/u in 2-3 days Plan discussed with: GONZÁLEZ Vidal MD June 27, 2024 11:47
--- NOTE | 2024-06-27 14:50 | DVHPN2 ---
Progress Note - Dictate Date Seen: June 27, 2024 Medical Necessity Reason Pt with a Central, PICC or Fol: Yes The following are medically ne: Eagle Catheter Reason for eagle catheter: Strict I&O Subjective Patient complains of low back pain. vital signs Vital Sign Date Time Temp Pulse Resp B/P (MAP) Pulse Ox O2 Delivery O2 Flow Rate FiO2 06/27/24 14:15 68 118/43 06/27/24 14:00 19 92 Nasal Cannula* 4 36 06/27/24 04:00 98.4 98.4 Total Intake and Output 06/26/24 06/26/24 06/27/24 15:00 23:00 07:00 Intake Total 100 ml 130 ml 200 ml Output Total 3000 ml Balance 100 ml -2870 ml 200 ml medications Current Medications Medications Dose Ordered Sig/Eric Route Start Time Stop Time Status Last Admin Dose Admin Ondansetron HCl 4 mg Q4HP PRN IV 06/11/24 02:00 Nitroglycerin 0.4 mg Q5MINP PRN SL 06/11/24 02:00 Albuterol 2.5 mg Q4HPRN PRN NEB 06/11/24 02:00 06/26/24 06:06 2.5 MG Ipratropium [place] 0.5 mg Q4HPRN PRN NEB 06/11/24 02:00 06/26/24 06:06 0.5 MG Ceftriaxone Sodium 50 ml @ 100 mls/hr DAILY@09 IV 06/13/24 09:00 06/27/24 09:00 100 MLS/HR Acetaminophen 650 mg Q6HP PRN GT 06/11/24 23:45 06/12/24 02:48 650 MG Nicardipine HCl 250 ml @ 50 mls/hr Q5H IV 06/13/24 14:45 UNV Hydralazine HCl 10 mg Q6HPRN PRN IV 06/17/24 00:00 06/27/24 06:59 10 MG Diagnostic Test (Pha) 1 strip Q6HR 06/20/24 00:00 06/27/24 12:29 1 STRIP Insulin Human Regular Q6HR SC 06/20/24 00:00 06/27/24 12:31 2 UNITS Dextrose 50 ml UD PRN IV 06/19/24 18:15 Dopamine HCl/ Dextrose 250 ml @ 15.544 mls/ hr Q16H5M IV 06/21/24 11:00 UNV Metoprolol Tartrate 50 mg BID PO 06/23/24 22:00 06/27/24 11:29 50 MG Amlodipine Besylate 10 mg DAILY PO 06/24/24 10:00 06/27/24 11:29 10 MG Vancomycin HCl 0 ml @ 0 mls/hr UD IV 06/23/24 20:45 Clonidine HCl 0.2 mg Q7D TD 06/25/24 14:30 06/25/24 16:35 0.2 MG Famotidine 10 mg EOD PO 06/27/24 10:00 06/27/24 11:30 10 MG Heparin Sodium (Porcine) 2,300 units AMANDA PRN IV 06/26/24 15:30 Acetaminophen/ Hydrocodone Bitart 1 tab Q6HPRN PRN PO 06/26/24 22:30 06/27/24 07:02 1 TAB Gabapentin 100 mg TID PO 06/26/24 22:00 06/27/24 05:31 100 MG Baclofen 10 mg DAILY PO 06/27/24 10:00 06/27/24 11:29 10 MG Morphine Sulfate 2 mg Q4HPRN PRN IV 06/27/24 00:45 06/27/24 05:51 2 MG Nifedipine 90 mg DAILY PO 06/28/24 10:00 Fluconazole 100 mg DAILY PO 06/27/24 22:00 UNV objective HEENT: Oral mucosa dry Pulmonary: Diminished lung sounds bilaterally Cardiovascular S1-S2, no S3 or S4 Abdomen: Bowel sounds positive, soft no rebound tenderness Skin: No rash Neurological: Alert and oriented Hemodialysis access right upper chest CVC laboratory and microbiology Laboratory Tests 06/27/24 03:20 Test 06/27/24 03:20 Range/Units Serum Glucose 146 H 74-106 mg/dL Assessment/Plan Assessment: End-stage renal disease on HD Hypokalemia Anemia of renal disease. Acute hypoxic Respiratory failure, on mechanical ventilation HTN urgency Subacute stroke. T-spine fracture. Leukopenia Plan: Hemodialysis today Sunday was achieved 3 L UF. Fluid restriction less than 1 L per day On metoprolol 50 mg twice a day, amlodipine ID consult appreciated Continue IV antibiotics ANANTH post HD as needed, goal Hb: 10-11 g/dl Okay to downgrade from ICU Thank you very much for allowing us to participate in the care of this patient. Dietary Evaluation Review Comments: 1) If patient remains NPO > 7 days, consider EN/TPN to meet at least 75% estimated needs 2) If GI route is preferred, consider Nepro @ 25 mL/hr goal rate as tolerated. EN regimen will provide 1080 kcals, 49g Pro, and 447 mL free H2O per 24 hrs. EN regimen will meet ~90% estimated daily energy needs and ~47% estimated daily protein needs 3) Initiate Nephro-Susan @ 1 tb qd 4) Advance to 60g [facility] renal standard diet when medically feasible, pending [facility] approval 5) Follow-up with nephrology, cardiology, and pulmonology 6) Continue to monitor I&O, labs, and skin integrity Expected Outcomes/Goals: 1) patient to receive nutrition support within 7 days of NPO status 2) labs to improve 3) wound to improve 4) patient to be extubated and diet to advance 5) f/u in 2-3 days Plan discussed with: Patient JUAN R MARIEE MD June 27, 2024 14:50
--- NOTE | 2024-06-27 16:57 | DVHPN2 ---
Subjective Patient's extubated on 06/25, currently on nasal cannula at 4 L. Reviewed: Care Plan Changes from previous H/P or p: No Changes Objective Vitals Vital Signs Date Time Temp Pulse Resp B/P (MAP) Pulse Ox O2 Delivery O2 Flow Rate FiO2 06/27/24 15:30 77 14 136/54 (81) 98 06/27/24 14:00 Nasal Cannula* 4 36 06/27/24 04:00 98.4 98.4 Intake/Output Intake and Output 06/27/24 07:00 Intake Total 430 ml Output Total 3000 ml Balance -2570 ml Intake Oral 230 ml IV Total 200 ml Other 3000 ml # Bowel Movements 1 Exam HEENT pupils are reactive , 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 no edema [employer]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 Medications Current Medications Medications Dose Ordered Sig/Eric Route Start Time Stop Time Status Last Admin Dose Admin Ondansetron HCl 4 mg Q4HP PRN IV 06/11/24 02:00 Nitroglycerin 0.4 mg Q5MINP PRN SL 06/11/24 02:00 Albuterol 2.5 mg Q4HPRN PRN NEB 06/11/24 02:00 06/26/24 06:06 2.5 MG Ipratropium [place] 0.5 mg Q4HPRN PRN NEB 06/11/24 02:00 06/26/24 06:06 0.5 MG Ceftriaxone Sodium 50 ml @ 100 mls/hr DAILY@09 IV 06/13/24 09:00 06/27/24 09:00 100 MLS/HR Acetaminophen 650 mg Q6HP PRN GT 06/11/24 23:45 06/12/24 02:48 650 MG Nicardipine HCl 250 ml @ 50 mls/hr Q5H IV 06/13/24 14:45 UNV Hydralazine HCl 10 mg Q6HPRN PRN IV 06/17/24 00:00 06/27/24 06:59 10 MG Diagnostic Test (Pha) 1 strip Q6HR 06/20/24 00:00 06/27/24 12:29 1 STRIP Insulin Human Regular Q6HR SC 06/20/24 00:00 06/27/24 12:31 2 UNITS Dextrose 50 ml UD PRN IV 06/19/24 18:15 Dopamine HCl/ Dextrose 250 ml @ 15.544 mls/ hr Q16H5M IV 06/21/24 11:00 UNV Metoprolol Tartrate 50 mg BID PO 06/23/24 22:00 06/27/24 11:29 50 MG Amlodipine Besylate 10 mg DAILY PO 06/24/24 10:00 06/27/24 11:29 10 MG Vancomycin HCl 0 ml @ 0 mls/hr UD IV 06/23/24 20:45 Clonidine HCl 0.2 mg Q7D TD 06/25/24 14:30 06/25/24 16:35 0.2 MG Famotidine 10 mg EOD PO 06/27/24 10:00 06/27/24 11:30 10 MG Heparin Sodium (Porcine) 2,300 units AMANDA PRN IV 06/26/24 15:30 Acetaminophen/ Hydrocodone Bitart 1 tab Q6HPRN PRN PO 06/26/24 22:30 06/27/24 07:02 1 TAB Gabapentin 100 mg TID PO 06/26/24 22:00 06/27/24 14:52 100 MG Baclofen 10 mg DAILY PO 06/27/24 10:00 06/27/24 11:29 10 MG Morphine Sulfate 2 mg Q4HPRN PRN IV 06/27/24 00:45 06/27/24 05:51 2 MG Nifedipine 90 mg DAILY PO 06/28/24 10:00 Fluconazole 100 mg HS PO 06/27/24 22:00 Laboratory Results Laboratory Tests 06/27/24 03:20 Chemistry Test 06/27/24 03:20 Calcium Level 9.9 mg/dL (8.7-10.4) Urinalysis Test 06/11/24 03:00 Urine Color Light-yellow (Yellow) Urine Clarity Turbid (Clear) H Urine pH 8.0 (5.0-9.0) Urine Specific [place] 1.008 (1.001-1.035) Urine Protein 3+ (Negative) H Urine Ketones Negative (Negative) Urine Blood Negative /uL (Negative) Urine Nitrite Negative (Negative) Urine Bilirubin Negative (Negative) Urine Urobilinogen Normal mg/dL (Negative) Urine Leukocyte Esterase 1+ /uL (Negative) Urine RBC 10 /hpf (0 - 4) Urine Microscopic WBC 41 /HPF (0-5) H Urine Squamous Epithelial Cells Mod /hpf (<5) Urine Bacteria None seen /hpf (None Seen) Urine Glucose 2+ mg/dL (Normal) H Blood Gas Results Test 06/27/24 02:15 Arterial Blood pH 7.491 (7.350-7.450) FiO2 % 30.0 Microbiology Microbiology Date/Time Source Procedure Growth Status 06/13/24 08:45 Nose MRSA Screen - Final Complete 06/11/24 23:55 Blood Blood Culture - Final NO GROWTH AFTER 5 DAYS OF INCUBATION. Complete Assessment/Plan Assessment/Plan 63-year-old female with a known history of hypertension, dyslipidemia, coronary artery disease, anxiety disorder, recent mechanical fall found to have acute small T12 compression fracture, L3-4 lumbar diskitis presented to the hospital with right-sided weakness altered mental status eventually intubated in the ER for airway protection. Patient was found to have acute/subacute left frontal and temporal infarct currently MRI brain is pending. 1. Acute hypoxic respiratory failure requiring intubation with mechanical ventilation secondary to metabolic encephalopathy , extubated on 06/25 2. 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 Hypertensive emergency with the end-organ involvement , off the nicardipine drip 5. End-stage renal disease on hemodialysis received hemodialysis 6. Coronary artery disease 7. L3-4 lumbar diskitis/osteomyelitis, resume IV vancomycin and consult infectious disease specialist 8. Physical deconditioning -physical therapy evaluation and treatment, diet as tolerated, can downgraded to telemetry with a sitter. Plan discussed with: Patient My Orders Orders - BENJA ROBBINS MD Procedure Category Date Status Time Fluconazole Tablet PHA 06/27/24 In Process (Diflucan Tablet) 22:00 Transfer Orders XFER 06/27/24 Transmitted 15:08 Communication Order ORDERS 06/27/24 Transmitted 15:08 Date of Service: June 27, 2024 Billing Provider: BENJA ROBBINS MD Common Visit Codes: NOT BILLABLE BENJA ROBBINS MD June 27, 2024 16:57
--- NOTE | 2024-06-27 19:16 | DVHPN2 ---
Progress Note - Dictate Date Seen: June 27, 2024 Medical Necessity Reason Pt with a Central, PICC or Fol: Yes The following are medically ne: Eagle Catheter Reason for eagle catheter: Strict I&O Subjective Patient was seen and evaluated in follow up in the ICU. Patient is complaining of low back pain. Patient is on 4 LPM NC. HGB 9.2, HCT 26.8, BUN 32, [employer] 4.33. Received hemodialysis with 3 L UF. vital signs Vital Sign Date Time Temp Pulse Resp B/P (MAP) Pulse Ox O2 Delivery O2 Flow Rate FiO2 06/27/24 10:00 16 99 Nasal Cannula* 2 28 06/27/24 10:00 75 06/27/24 07:00 180/77 (111) 06/27/24 04:00 98.4 98.4 Total Intake and Output 06/26/24 06/26/24 06/27/24 15:00 23:00 07:00 Intake Total 100 ml 130 ml 200 ml Output Total 3000 ml Balance 100 ml -2870 ml 200 ml medications Current Medications Medications Dose Ordered Sig/Eric Route Start Time Stop Time Status Last Admin Dose Admin Ondansetron HCl 4 mg Q4HP PRN IV 06/11/24 02:00 Nitroglycerin 0.4 mg Q5MINP PRN SL 06/11/24 02:00 Albuterol 2.5 mg Q4HPRN PRN NEB 06/11/24 02:00 06/26/24 06:06 2.5 MG Ipratropium [place] 0.5 mg Q4HPRN PRN NEB 06/11/24 02:00 06/26/24 06:06 0.5 MG Ceftriaxone Sodium 50 ml @ 100 mls/hr DAILY@09 IV 06/13/24 09:00 06/26/24 09:22 100 MLS/HR Acetaminophen 650 mg Q6HP PRN GT 06/11/24 23:45 06/12/24 02:48 650 MG Nicardipine HCl 250 ml @ 50 mls/hr Q5H IV 06/13/24 14:45 UNV Hydralazine HCl 10 mg Q6HPRN PRN IV 06/17/24 00:00 06/27/24 06:59 10 MG Diagnostic Test (Pha) 1 strip Q6HR 06/20/24 00:00 06/27/24 05:32 1 STRIP Insulin Human Regular Q6HR SC 06/20/24 00:00 06/27/24 05:39 2 UNITS Dextrose 50 ml UD PRN IV 06/19/24 18:15 Dopamine HCl/ Dextrose 250 ml @ 15.544 mls/ hr Q16H5M IV 06/21/24 11:00 UNV Metoprolol Tartrate 50 mg BID PO 06/23/24 22:00 06/26/24 20:20 50 MG Amlodipine Besylate 10 mg DAILY PO 06/24/24 10:00 06/26/24 10:49 10 MG Vancomycin HCl 0 ml @ 0 mls/hr UD IV 06/23/24 20:45 Clonidine HCl 0.2 mg Q7D TD 06/25/24 14:30 06/25/24 16:35 0.2 MG Famotidine 10 mg EOD PO 06/27/24 10:00 Heparin Sodium (Porcine) 2,300 units AMANDA PRN IV 06/26/24 15:30 Acetaminophen/ Hydrocodone Bitart 1 tab Q6HPRN PRN PO 06/26/24 22:30 06/27/24 07:02 1 TAB Gabapentin 100 mg TID PO 06/26/24 22:00 06/27/24 05:31 100 MG Baclofen 10 mg DAILY PO 06/27/24 10:00 Morphine Sulfate 2 mg Q4HPRN PRN IV 06/27/24 00:45 06/27/24 05:51 2 MG Nifedipine 90 mg DAILY PO 06/27/24 02:00 06/27/24 02:34 90 MG objective GENERAL: Alert and oriented x 3. No acute distress. EYES: PERRL, EOMI. Anicteric. HENT: Moist mucous membranes. LUNGS: Decreased breath sounds. CARDIOVASCULAR: Regular rate and rhythm. ABDOMEN: Soft, nontender and nondistended. EXTREMITIES: No edema. NEUROLOGIC: No focal neurological deficits. SKIN: Warm, dry. laboratory and microbiology Laboratory Tests 06/27/24 03:20 Test 06/27/24 03:20 Range/Units Serum Glucose 146 H 74-106 mg/dL Problem List Acute CVA. Hypertensive emergency. Questionable coronary artery disease. Moderate pericardial effusion. Acute hypoxic respiratory failure. End-stage renal disease on hemodialysis. History of T12 compression fracture. Assessment/Plan Continued all current supportive medical care. Amlodipine, Clonidine. IV antibiotics as ordered. IV Hydralazine for SBP >160. Metoprolol. Morphine for pain management. GI prophylactics. Additional plan as per the hospital course. Critical care time of 45 minutes provided to include time spent evaluation of patient at bedside, when appropriate patient/family education for diagnosis, treatment plan, review of pertinent medical information and discussion of care with specialty providers and PCP. Dietary Evaluation Review Comments: 1) If patient remains NPO > 7 days, consider EN/TPN to meet at least 75% estimated needs 2) If GI route is preferred, consider Nepro @ 25 mL/hr goal rate as tolerated. EN regimen will provide 1080 kcals, 49g Pro, and 447 mL free H2O per 24 hrs. EN regimen will meet ~90% estimated daily energy needs and ~47% estimated daily protein needs 3) Initiate Nephro-Susan @ 1 tb qd 4) Advance to 60g CCHO renal standard diet when medically feasible, pending [facility] approval 5) Follow-up with nephrology, cardiology, and pulmonology 6) Continue to monitor I&O, labs, and skin integrity Expected Outcomes/Goals: 1) patient to receive nutrition support within 7 days of NPO status 2) labs to improve 3) wound to improve 4) patient to be extubated and diet to advance 5) f/u in 2-3 days Plan discussed with: Patient SHAUN RAMOS MD June 27, 2024 11:41
--- NOTE | 2024-06-27 21:08 | DVHPN2 ---
Progress Note - Dictate Date Seen: June 27, 2024 Medical Necessity Reason Pt with a Central, PICC or Fol: Yes The following are medically ne: Eagle Catheter Reason for eagle catheter: Strict I&O Subjective Patient seen and examined at bedside. On supplemental oxygen Overnight events reviewed. vital signs Vital Sign Date Time Temp Pulse Resp B/P (MAP) Pulse Ox O2 Delivery O2 Flow Rate FiO2 06/27/24 18:35 98 Nasal Cannula* 4 36 06/27/24 18:00 62 06/27/24 18:00 16 109/42 (64) 06/27/24 04:00 98.4 98.4 Total Intake and Output 06/26/24 06/26/24 06/27/24 15:00 23:00 07:00 Intake Total 100 ml 130 ml 200 ml Output Total 3000 ml Balance 100 ml -2870 ml 200 ml medications Current Medications Medications Dose Ordered Sig/Eric Route Start Time Stop Time Status Last Admin Dose Admin Ondansetron HCl 4 mg Q4HP PRN IV 06/11/24 02:00 Nitroglycerin 0.4 mg Q5MINP PRN SL 06/11/24 02:00 Albuterol 2.5 mg Q4HPRN PRN NEB 06/11/24 02:00 06/26/24 06:06 2.5 MG Ipratropium [place] 0.5 mg Q4HPRN PRN NEB 06/11/24 02:00 06/26/24 06:06 0.5 MG Ceftriaxone Sodium 50 ml @ 100 mls/hr DAILY@09 IV 06/13/24 09:00 06/27/24 09:00 100 MLS/HR Acetaminophen 650 mg Q6HP PRN GT 06/11/24 23:45 06/12/24 02:48 650 MG Nicardipine HCl 250 ml @ 50 mls/hr Q5H IV 06/13/24 14:45 UNV Hydralazine HCl 10 mg Q6HPRN PRN IV 06/17/24 00:00 06/27/24 06:59 10 MG Diagnostic Test (Pha) 1 strip Q6HR 06/20/24 00:00 06/27/24 17:37 1 STRIP Insulin Human Regular Q6HR SC 06/20/24 00:00 06/27/24 17:41 2 UNITS Dextrose 50 ml UD PRN IV 06/19/24 18:15 Dopamine HCl/ Dextrose 250 ml @ 15.544 mls/ hr Q16H5M IV 06/21/24 11:00 UNV Metoprolol Tartrate 50 mg BID PO 06/23/24 22:00 06/27/24 11:29 50 MG Amlodipine Besylate 10 mg DAILY PO 06/24/24 10:00 06/27/24 11:29 10 MG Vancomycin HCl 0 ml @ 0 mls/hr UD IV 06/23/24 20:45 Clonidine HCl 0.2 mg Q7D TD 06/25/24 14:30 06/25/24 16:35 0.2 MG Famotidine 10 mg EOD PO 06/27/24 10:00 06/27/24 11:30 10 MG Heparin Sodium (Porcine) 2,300 units AMANDA PRN IV 06/26/24 15:30 Acetaminophen/ Hydrocodone Bitart 1 tab Q6HPRN PRN PO 06/26/24 22:30 06/27/24 07:02 1 TAB Gabapentin 100 mg TID PO 06/26/24 22:00 06/27/24 14:52 100 MG Baclofen 10 mg DAILY PO 06/27/24 10:00 06/27/24 11:29 10 MG Morphine Sulfate 2 mg Q4HPRN PRN IV 06/27/24 00:45 06/27/24 05:51 2 MG Nifedipine 90 mg DAILY PO 06/28/24 10:00 Fluconazole 100 mg HS PO 06/27/24 22:00 objective Gen.: Patient lying in bed in no apparent distress. On supplemental oxygen Head: Normocephalic, atraumatic. Eyes: EOMI/PERRLA. Ears: Normal hearing. Normal anatomy. Neck/trachea: Trachea midline, supple. Nose: Normal external anatomy. Mouth: Moist mucous membranes. Chest: Decreased air entry bilaterally. No wheezing or rhonchi. Cardiovascular: Positive S1, positive S2. Regular rate and rhythm. Abdomen: Positive bowel sounds in all 4 quadrants. Soft, non-tender, non- distended. : Deferred. Rectal: Deferred. Skin: Warm, dry. Intact. Extremities: 2+ radial pulses bilaterally. No lower extremity edema. Neuro: Awake, alert, oriented x3. No gross motor or sensory deficits. Cranial nerves II through XII intact. Gait not assessed laboratory and microbiology Laboratory Tests 06/27/24 03:20 Test 06/27/24 03:20 Range/Units Serum Glucose 146 H 74-106 mg/dL Assessment/Plan Impression: Acute hypoxic respiratory failure Acute CVA Acute encephalopathy ESRD, on hemodialysis Pulmonary edema Shock Obesity BMI 33.3 Events: Remains on supplemental oxygen On 5 LPM NC Taper O2 as tolerated Chest x-ray on 06/26 showed mild cardiomegaly with mild pulmonary venous congestion. Decreased right pleural effusion. Head of bed elevation Aspiration precautions Incentive spirometry Continue antibiotics Pain control Avoid oversedation Protonix for GI prophylaxis HD per Nephrology - s/p HD yesterday with 3 liters removed. Monitor renal function Monitor electrolytes. Supplement as necessary. Monitor ins and outs. Patient is stable for downgrade from the pulmonary standpoint. Labs and imaging reviewed Plan: S/p extubation Supplemental oxygen Titrate to keep O2 sats above 92%. Monitor blood pressure Continue antibiotics. F/u cultures. Continue bronchodilators Accu-Cheks, ISS Echo reviewed Cardiology recs appreciated Pressors as necessary for hemodynamic support Titrate to keep mean arterial pressure greater than 65 mmHg. HD per Nephrology Monitor renal function Monitor electrolytes. Supplement as necessary. Monitor ins and outs. Maintain euvolemia. GI prophylaxis. DVT prophylaxis. Prognosis: Poor given patient's multiple co-morbidities. Rest of plan per hospitalist and other consultants. Thank you, LISA Garcia, for allowing me to participate in this patient's care. Further recommendations will depend on the patient's clinical course. Please do not hesitate to contact me if you have any questions or concerns. This medical document was created using an electronic medical record system with [employer] dictation system. Although these documentations are being carefully reviewed, there may still be some phonetic and typographical changes. The errors are purely typographical, due to imperfection on the software program, and do not reflect any compromise in the patient's medical care. Dietary Evaluation Review Comments: 1) If patient remains NPO > 7 days, consider EN/TPN to meet at least 75% estimated needs 2) If GI route is preferred, consider Nepro @ 25 mL/hr goal rate as tolerated. EN regimen will provide 1080 kcals, 49g Pro, and 447 mL free H2O per 24 hrs. EN regimen will meet ~90% estimated daily energy needs and ~47% estimated daily protein needs 3) Initiate Nephro-Susan @ 1 tb qd 4) Advance to 60g CCHO renal standard diet when medically feasible, pending [employer] approval 5) Follow-up with nephrology, cardiology, and pulmonology 6) Continue to monitor I&O, labs, and skin integrity Expected Outcomes/Goals: 1) patient to receive nutrition support within 7 days of NPO status 2) labs to improve 3) wound to improve 4) patient to be extubated and diet to advance 5) f/u in 2-3 days Plan discussed with: Patient, Other (RN Dipti) NAE BELLAMY MD June 27, 2024 21:08
--- NOTE | 2024-06-27 22:04 | DVHPN2 ---
Progress Note - Dictate Date Seen: June 27, 2024 Medical Necessity Reason Pt with a Central, PICC or Fol: Yes The following are medically ne: Eagle Catheter Reason for eagle catheter: Strict I&O Subjective Ms. Dawkins is a 63 years old female with a history of chronic kidney failure on hemodialysis, recent spine fracture, she came to the [facility] on 06/10/2024 with a chief complaint of back pain. I have seen and examined the patient, I have discussed with her nurse, she is awake, but is very weak, oriented to person, place, she knows year, reasonable social skills, He did not sleep well last night, and he was sleepy during daytime today Blood culture, 06/11/2024: Urinalysis, 06/11/2024: Negative Plasma alcohol, 06/10/2024: <3 ABG, 06/08/2024: Respiratory alkalosis WBC/HB/PLT/MCV, 06/11/2024: 1.7/10.5/114/89.3, 06/15/2024: 2.2/9.7/124/87.7, 06/16/2024: 0.5/10.3/136/86.5, 06/17/2024: 7.2/9.9/152/87.3 Na, 06/10/2024: 136, 06/12/2024: 133, 06/14/2024: 125, 06/15/24: 130 BUN/CR, 05/2624: 47/7.51, 06/15/2024: 31/5.74 HGB A1c, 06/11/2024: 4.3 Liver function tests, 06/10/2024: Unremarkable TG/HDL/LDL/HDL, 06/11/2024: 63/106/47/40 Echocardiogram, 06/11/2024: LVEF is normal 50-55% Rv function normal Moderate pericardial effusion with no evidence of tamponade Large left pleural effusion Chest x-ray, 06/11/2024: Lines and tubes in satisfactory position. No significant interval change Chest x-ray, 06/15/2024: 1. Mild diffuse increased prominence of the pulmonary vasculature. 2. Lines and tubes unchanged CT head, 06/10/2024: Subacute stroke involving the left frontal lobe white matter which also may involve the left temporal lobe as well can not rule out acute features CT head 06/21/24: 1. No acute intracranial hemorrhage 2. Stable left parietal infarct unchanged from 06/10/2024. CT T-spine, 06/10/2024: No evidence of fracture in the thoracic spine CT lumbar spine, 06/10/2024: No acute fracture. Grade 1 anterolisthesis at L4-L5 with bilateral pars defects. Moderate to severe endplate degenerative changes at L4-L5, T12-L1, and L5-S1. There is severe spinal canal narrowing at L4-L5. Partially visualized moderate bilateral pleural effusions. Mild diffuse anasarca CTA head, neck, 06/10/2024: No significant vascular stenosis involving the head / neck. Moderate occlusion of the bilateral V4 segments vertebral arteries due to calcified and noncalcified plaques MRI head, 06/12/2024: 1. There is no acute intracranial process. 2. Chronic infarct in the superolateral left frontal lobe. (I saw another possible chronic stroke: Images 16) MRI lumbar spine, 06/19/2024: Severe spinal canal stenosis with severe bilateral lateral recess narrowing at L3-L4. Severe bilateral neural foramina stenosis at L3-L4 with moderate right and severe left-sided neural foramina stenosis at L4- L5. Grade 1 anterolisthesis of L4 on L5. vital signs Vital Sign Date Time Temp Pulse Resp B/P (MAP) Pulse Ox O2 Delivery O2 Flow Rate FiO2 06/27/24 19:30 62 16 109/42 98 4.0 06/27/24 18:35 Nasal Cannula* 36 06/27/24 04:00 98.4 98.4 Total Intake and Output 06/26/24 06/26/24 06/27/24 15:00 23:00 07:00 Intake Total 100 ml 130 ml 200 ml Output Total 3000 ml Balance 100 ml -2870 ml 200 ml medications Current Medications Medications Dose Ordered Sig/Eric Route Start Time Stop Time Status Last Admin Dose Admin Ondansetron HCl 4 mg Q4HP PRN IV 06/11/24 02:00 Nitroglycerin 0.4 mg Q5MINP PRN SL 06/11/24 02:00 Albuterol 2.5 mg Q4HPRN PRN NEB 06/11/24 02:00 06/26/24 06:06 2.5 MG Ipratropium [place] 0.5 mg Q4HPRN PRN NEB 06/11/24 02:00 06/26/24 06:06 0.5 MG Ceftriaxone Sodium 50 ml @ 100 mls/hr DAILY@09 IV 06/13/24 09:00 06/27/24 09:00 100 MLS/HR Acetaminophen 650 mg Q6HP PRN GT 06/11/24 23:45 06/12/24 02:48 650 MG Nicardipine HCl 250 ml @ 50 mls/hr Q5H IV 06/13/24 14:45 UNV Hydralazine HCl 10 mg Q6HPRN PRN IV 06/17/24 00:00 06/27/24 06:59 10 MG Diagnostic Test (Pha) 1 strip Q6HR 06/20/24 00:00 06/27/24 17:37 1 STRIP Insulin Human Regular Q6HR SC 06/20/24 00:00 06/27/24 17:41 2 UNITS Dextrose 50 ml UD PRN IV 06/19/24 18:15 Dopamine HCl/ Dextrose 250 ml @ 15.544 mls/ hr Q16H5M IV 06/21/24 11:00 UNV Metoprolol Tartrate 50 mg BID PO 06/23/24 22:00 06/27/24 11:29 50 MG Amlodipine Besylate 10 mg DAILY PO 06/24/24 10:00 06/27/24 11:29 10 MG Vancomycin HCl 0 ml @ 0 mls/hr UD IV 06/23/24 20:45 Clonidine HCl 0.2 mg Q7D TD 06/25/24 14:30 06/25/24 16:35 0.2 MG Famotidine 10 mg EOD PO 06/27/24 10:00 06/27/24 11:30 10 MG Heparin Sodium (Porcine) 2,300 units AMANDA PRN IV 06/26/24 15:30 Acetaminophen/ Hydrocodone Bitart 1 tab Q6HPRN PRN PO 06/26/24 22:30 06/27/24 07:02 1 TAB Gabapentin 100 mg TID PO 06/26/24 22:00 06/27/24 14:52 100 MG Baclofen 10 mg DAILY PO 06/27/24 10:00 06/27/24 11:29 10 MG Morphine Sulfate 2 mg Q4HPRN PRN IV 06/27/24 00:45 06/27/24 05:51 2 MG Nifedipine 90 mg DAILY PO 06/28/24 10:00 Fluconazole 100 mg HS PO 06/27/24 22:00 objective The patient is well-nourished and well-developed with no distress. MENTAL STATUS: Subjective CRANIAL NERVES: Pupils are equal round and reactive to light briskly, normal external eye movement, normal sensation and motor examination in the lateral trigeminal nerve distribution, no facial weakness. SENSATION: Okay to light touch and pinprick MOTOR: Normal tone in the upper and lower extremity. Normal muscle bulk. No fasciculations. She moves the arms and legs REFLEXES: Deep tendon reflexes are symmetrical. No pathological reflexes. CEREBELLAR/COORDINATION: Deferred GAIT/STATION: deferred. laboratory and microbiology Laboratory Tests 06/27/24 03:20 Test 06/27/24 03:20 Range/Units Serum Glucose 146 H 74-106 mg/dL Problem List 2 chronic strokes in the left hemisphere per MRI and CT scan, asymptomatic Acute low back pain to rule out diskitis Acute respiratory failure Pancytopenia, better Hyponatremia Hypokalemia Chronic kidney failure Anisocoria noticed on 06/18/2024, uncertain clinical significance Looks improving Assessment/Plan Monitoring Supportive treatment ICU care IV antibiotics Aspirin 81 mg daily Lipitor 40 mg daily DVT prophylaxis GI prophylaxis Consult hematology Infectious disease on case Cardiology on case Pulmonary on case Nephrology on case CPAP trial/extubation More recommendation per clinical course This medical document was created using an electronic medical record system with [employer] dictation system. Although this document has been carefully reviewed, there may still be some phonetic and typographical errors. These areas are purely typographical due to imperfections of the software programs, and do not reflect any compromise in the patient's medical care Prognosis poor Dietary Evaluation Review Comments: 1) If patient remains NPO > 7 days, consider EN/TPN to meet at least 75% estimated needs 2) If GI route is preferred, consider Nepro @ 25 mL/hr goal rate as tolerated. EN regimen will provide 1080 kcals, 49g Pro, and 447 mL free H2O per 24 hrs. EN regimen will meet ~90% estimated daily energy needs and ~47% estimated daily protein needs 3) Initiate Nephro-Susan @ 1 tb qd 4) [facility] diet when medically feasible, pending [employer] approval 5) Follow-up with nephrology, cardiology, and pulmonology 6) Continue to monitor I&O, labs, and skin integrity Expected Outcomes/Goals: 1) patient to receive nutrition support within 7 days of NPO status 2) labs to improve 3) wound to improve 4) patient to be extubated and diet to advance 5) f/u in 2-3 days Plan discussed with: Other FORD ORTA MD June 27, 2024 22:04
[2024-06-27] MEDS: EPOETIN ALFA-EPBX 10,000 UNIT/1ML VIAL SC ONE (22:10)
[2024-06-27] MEDS: FLUCONAZOLE 100 MG TAB PO SCH (22:11)
[2024-06-28] VITALS (29 sets, daily range): BP systolic 112–176; BP diastolic 41–108; PULSE 54–79; RESP 7–20; TEMP 97.7–98.4; O2SAT 92–100
[2024-06-28 04:03] LABS: Hemoglobin 8.2 g/dL (12.2-16.2); Red Cell Distribution Width 17.3 % (11.8-14.3); White Blood Cell 3.8 10^3/uL (4.4-10.8)
[2024-06-28 04:08] LABS: Hematocrit 23.8 % (36.0-46.0); Mean Corpuscular Hemoglobin 30.3 pg (28.0-32.0); Mean Corpuscular Hgb Conc. 34.4 g/dL (32.0-36.0); Mean Corpuscular Volume 88.1 fL (80.0-100.0); Platelet Count (auto) 147 10^3/uL (140-450)
[2024-06-28 04:12] LABS: Basophils % (manual) 0 (0.0-2.0); Eosinophils % (manual) 0 (0-7); Metamyelocytes % 0; Myelocytes % 0; Promyelocytes % 0; Reactive Lymphocytes 0
[2024-06-28 06:14] LABS: Band Neutrophils % (manual) 1; Blast Cells 1; Lymphocytes % (manual) 9 (10.0-50.0); Monocytes % (manual) 7 (0-12); Platelet Estimate Adequate; Smudge Cells 1 /100 WBC
[2024-06-28 06:40] LABS: Chloride 101 mmol/L (98-107); Sodium 143 mmol/L (136-145)
[2024-06-28 06:41] LABS: Anion Gap 10 (5-15); Calcium 9.9 mg/dL (8.7-10.4)
[2024-06-28 06:44] LABS: Carbon Dioxide 32 mmol/L (20-31)
[2024-06-28 06:46] LABS: BUN/Creatinine Ratio 6.9 (10.0-20.0); Blood Urea Nitrogen 22 mg/dL (9-23)
[2024-06-28 06:52] LABS: Glucose 107 mg/dL (74-106)
[2024-06-28] MEDS: NIFEdipine ER 30 MG TAB PO SCH (11:10)
--- NOTE | 2024-06-28 15:06 | DVHPN2 ---
Progress Note - Dictate Date Seen: June 28, 2024 Medical Necessity Reason Pt with a Central, PICC or Fol: Yes The following are medically ne: Eagle Catheter Reason for eagle catheter: Strict I&O Subjective Patient is sleeping comfortably vital signs Vital Sign Date Time Temp Pulse Resp B/P (MAP) Pulse Ox O2 Delivery O2 Flow Rate FiO2 06/28/24 14:14 96 Nasal Cannula 4.0 06/28/24 14:00 14 N/A 06/28/24 14:00 56 06/28/24 12:00 133/47 (75) 06/28/24 11:00 97.8 97.8 Total Intake and Output 06/27/24 06/27/24 06/28/24 15:00 23:00 07:00 Intake Total 100 ml 450 ml 150 ml Balance 100 ml 450 ml 150 ml medications Current Medications Medications Dose Ordered Sig/Eric Route Start Time Stop Time Status Last Admin Dose Admin Ondansetron HCl 4 mg Q4HP PRN IV 06/11/24 02:00 Nitroglycerin 0.4 mg Q5MINP PRN SL 06/11/24 02:00 Albuterol 2.5 mg Q4HPRN PRN NEB 06/11/24 02:00 06/26/24 06:06 2.5 MG Ipratropium [place] 0.5 mg Q4HPRN PRN NEB 06/11/24 02:00 06/26/24 06:06 0.5 MG Ceftriaxone Sodium 50 ml @ 100 mls/hr DAILY@09 IV 06/13/24 09:00 06/28/24 10:56 100 MLS/HR Acetaminophen 650 mg Q6HP PRN GT 06/11/24 23:45 06/12/24 02:48 650 MG Nicardipine HCl 250 ml @ 50 mls/hr Q5H IV 06/13/24 14:45 UNV Hydralazine HCl 10 mg Q6HPRN PRN IV 06/17/24 00:00 06/27/24 06:59 10 MG Diagnostic Test (Pha) 1 strip Q6HR 06/20/24 00:00 06/28/24 11:10 1 STRIP Insulin Human Regular Q6HR SC 06/20/24 00:00 06/28/24 11:20 2 UNITS Dextrose 50 ml UD PRN IV 06/19/24 18:15 Dopamine HCl/ Dextrose 250 ml @ 15.544 mls/ hr Q16H5M IV 06/21/24 11:00 UNV Metoprolol Tartrate 50 mg BID PO 06/23/24 22:00 06/27/24 11:29 50 MG Amlodipine Besylate 10 mg DAILY PO 06/24/24 10:00 06/28/24 10:57 10 MG Vancomycin HCl 0 ml @ 0 mls/hr UD IV 06/23/24 20:45 Clonidine HCl 0.2 mg Q7D TD 06/25/24 14:30 06/25/24 16:35 0.2 MG Famotidine 10 mg EOD PO 06/27/24 10:00 06/27/24 11:30 10 MG Heparin Sodium (Porcine) 2,300 units AMANDA PRN IV 06/26/24 15:30 Acetaminophen/ Hydrocodone Bitart 1 tab Q6HPRN PRN PO 06/26/24 22:30 06/27/24 07:02 1 TAB Gabapentin 100 mg TID PO 06/26/24 22:00 06/28/24 13:55 100 MG Baclofen 10 mg DAILY PO 06/27/24 10:00 06/28/24 10:57 10 MG Morphine Sulfate 2 mg Q4HPRN PRN IV 06/27/24 00:45 06/27/24 05:51 2 MG Nifedipine 90 mg DAILY PO 06/28/24 10:00 06/28/24 11:10 90 MG Fluconazole 100 mg HS PO 06/27/24 22:00 06/27/24 22:11 100 MG objective HEENT: Oral mucosa dry Pulmonary: Diminished lung sounds bilaterally Cardiovascular S1-S2, no S3 or S4 Abdomen: Bowel sounds positive, soft no rebound tenderness Skin: No rash Neurological: Alert and oriented Hemodialysis access right upper chest CVC laboratory and microbiology Laboratory Tests 06/28/24 03:20 Test 06/28/24 03:20 Range/Units Serum Glucose 107 H 74-106 mg/dL Assessment/Plan Assessment: End-stage renal disease on HD Hypokalemia Anemia of renal disease. Acute hypoxic Respiratory failure, on mechanical ventilation HTN urgency Subacute stroke. T-spine fracture. Leukopenia Plan: Dialysis tomorrow Fluid restriction less than 1 L per day On metoprolol 50 mg twice a day, amlodipine ID consult appreciated Continue IV antibiotics ANANTH post HD as needed, goal Hb: 10-11 g/dl Okay to downgrade from ICU Thank you very much for allowing us to participate in the care of this patient. Dietary Evaluation Review Comments: 1) If patient remains NPO > 7 days, consider EN/TPN to meet at least 75% estimated needs 2) If GI route is preferred, consider Nepro @ 25 mL/hr goal rate as tolerated. EN regimen will provide 1080 kcals, 49g Pro, and 447 mL free H2O per 24 hrs. EN regimen will meet ~90% estimated daily energy needs and ~47% estimated daily protein needs 3) Initiate Nephro-Susan @ 1 tb qd 4) Advance to 60g [facility] renal standard diet when medically feasible, pending [employer] approval 5) Follow-up with nephrology, cardiology, and pulmonology 6) Continue to monitor I&O, labs, and skin integrity Expected Outcomes/Goals: 1) patient to receive nutrition support within 7 days of NPO status 2) labs to improve 3) wound to improve 4) patient to be extubated and diet to advance 5) f/u in 2-3 days Plan discussed with: Patient JUAN R MARIEE MD June 28, 2024 15:06
--- NOTE | 2024-06-28 16:25 | DVHPN2 ---
Subjective Patient's extubated on 06/25, currently on nasal Oxymizer, more drowsy today as per bedside RN Dipti. Reviewed: Care Plan Changes from previous H/P or p: No Changes Objective Vitals Vital Signs Date Time Temp Pulse Resp B/P (MAP) Pulse Ox O2 Delivery O2 Flow Rate FiO2 06/28/24 14:14 96 Nasal Cannula 4.0 06/28/24 14:00 14 N/A 06/28/24 14:00 56 06/28/24 12:00 133/47 (75) 06/28/24 11:00 97.8 97.8 Intake/Output Intake and Output 06/28/24 07:00 Intake Total 700 ml Balance 700 ml Intake Oral 600 ml IV Total 100 ml Exam HEENT pupils are reactive , brisk reaction somewhat unequal. 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 no edema [employer] extubated following commands Medications Current Medications Medications Dose Ordered Sig/Eric Route Start Time Stop Time Status Last Admin Dose Admin Ondansetron HCl 4 mg Q4HP PRN IV 06/11/24 02:00 Nitroglycerin 0.4 mg Q5MINP PRN SL 06/11/24 02:00 Albuterol 2.5 mg Q4HPRN PRN NEB 06/11/24 02:00 06/26/24 06:06 2.5 MG Ipratropium [place] 0.5 mg Q4HPRN PRN NEB 06/11/24 02:00 06/26/24 06:06 0.5 MG Ceftriaxone Sodium 50 ml @ 100 mls/hr DAILY@09 IV 06/13/24 09:00 06/28/24 10:56 100 MLS/HR Acetaminophen 650 mg Q6HP PRN GT 06/11/24 23:45 06/12/24 02:48 650 MG Nicardipine HCl 250 ml @ 50 mls/hr Q5H IV 06/13/24 14:45 UNV Hydralazine HCl 10 mg Q6HPRN PRN IV 06/17/24 00:00 06/27/24 06:59 10 MG Diagnostic Test (Pha) 1 strip Q6HR 06/20/24 00:00 06/28/24 11:10 1 STRIP Insulin Human Regular Q6HR SC 06/20/24 00:00 06/28/24 11:20 2 UNITS Dextrose 50 ml UD PRN IV 06/19/24 18:15 Dopamine HCl/ Dextrose 250 ml @ 15.544 mls/ hr Q16H5M IV 06/21/24 11:00 UNV Metoprolol Tartrate 50 mg BID PO 06/23/24 22:00 06/27/24 11:29 50 MG Amlodipine Besylate 10 mg DAILY PO 06/24/24 10:00 06/28/24 10:57 10 MG Vancomycin HCl 0 ml @ 0 mls/hr UD IV 06/23/24 20:45 Clonidine HCl 0.2 mg Q7D TD 06/25/24 14:30 06/25/24 16:35 0.2 MG Famotidine 10 mg EOD PO 06/27/24 10:00 06/27/24 11:30 10 MG Heparin Sodium (Porcine) 2,300 units AMANDA PRN IV 06/26/24 15:30 Acetaminophen/ Hydrocodone Bitart 1 tab Q6HPRN PRN PO 06/26/24 22:30 06/27/24 07:02 1 TAB Gabapentin 100 mg TID PO 06/26/24 22:00 06/28/24 13:55 100 MG Baclofen 10 mg DAILY PO 06/27/24 10:00 06/28/24 10:57 10 MG Morphine Sulfate 2 mg Q4HPRN PRN IV 06/27/24 00:45 06/27/24 05:51 2 MG Nifedipine 90 mg DAILY PO 06/28/24 10:00 06/28/24 11:10 90 MG Fluconazole 100 mg HS PO 06/27/24 22:00 06/27/24 22:11 100 MG Laboratory Results Laboratory Tests 06/28/24 03:20 Chemistry Test 06/28/24 03:20 Calcium Level 9.9 mg/dL (8.7-10.4) Urinalysis Test 06/11/24 03:00 Urine Color Light-yellow (Yellow) Urine Clarity Turbid (Clear) H Urine pH 8.0 (5.0-9.0) Urine Specific [place] 1.008 (1.001-1.035) Urine Protein 3+ (Negative) H Urine Ketones Negative (Negative) Urine Blood Negative /uL (Negative) Urine Nitrite Negative (Negative) Urine Bilirubin Negative (Negative) Urine Urobilinogen Normal mg/dL (Negative) Urine Leukocyte Esterase 1+ /uL (Negative) Urine RBC 10 /hpf (0 - 4) Urine Microscopic WBC 41 /HPF (0-5) H Urine Squamous Epithelial Cells Mod /hpf (<5) Urine Bacteria None seen /hpf (None Seen) Urine Glucose 2+ mg/dL (Normal) H Microbiology Microbiology Date/Time Source Procedure Growth Status 06/13/24 08:45 Nose MRSA Screen - Final Complete 06/11/24 23:55 Blood Blood Culture - Final NO GROWTH AFTER 5 DAYS OF INCUBATION. Complete Assessment/Plan Assessment/Plan 63-year-old female with a known history of hypertension, dyslipidemia, coronary artery disease, anxiety disorder, recent mechanical fall found to have acute small T12 compression fracture, L3-4 lumbar diskitis presented to the hospital with right-sided weakness altered mental status eventually intubated in the ER for airway protection. Patient was found to have acute/subacute left frontal and temporal infarct currently MRI brain is pending. 1. Acute hypoxic respiratory failure requiring intubation with mechanical ventilation secondary to metabolic encephalopathy , extubated on 06/25 2. 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 Hypertensive emergency with the end-organ involvement , off the nicardipine drip 5. End-stage renal disease on hemodialysis received hemodialysis 6. Coronary artery disease 7. L3-4 lumbar diskitis/osteomyelitis, resume IV vancomycin and consult infectious disease specialist 8. Physical deconditioning 9. Anisocoria -CT head stat noncontrast. -physical therapy evaluation and treatment, diet as tolerated, can downgraded to telemetry with a sitter. Plan discussed with: Patient, Other Date of Service: June 28, 2024 Billing Provider: BENJA ROBBINS MD Common Visit Codes: NOT BILLABLE BENJA ROBBINS MD June 28, 2024 16:25
[2024-06-28] MEDS: POTASSIUM CHL 20 Meq TABLET PO ONE (18:22)
[2024-06-28 19:13] LABS: Base Excess 3.9 mmol/L (-2.0-3.0)
--- NOTE | 2024-06-28 19:13 | DVH ---
EXAM: CT HEAD WITHOUT CONTRAST INDICATION: ALOC TECHNIQUE: CT of the head without intravenous contrast. Radiation Dose Information: CT Dose: CTDI volume is 53.92 mGy. Dose-length product is 954.85 mGy*cm The dose indicators for CT are the volume Computed Tomography (CT) Dose Index (CTDIvol) and the Dose Length Product (DLP), and are measured in units of mGy and mGy-cm, respectively. These indicators are not patient dose, but values generated from the CT scanner acquisition factors. The report includes radiation exposure data for exposures received during this examination. COMPARISON: CT HEAD WITHOUT CONTRAST on DOS: 06/21/24, CT HEAD WITHOUT CONTRAST on DOS: 06/10/24 FINDINGS: There is no evidence of acute intracranial hemorrhage, extra-axial collection, mass effect, midline s hift, herniation or hydrocephalus. Stable left frontal parietal infarct not significantly changed from 06/21/2024. The ventricles, sulci and cisterns are age appropriate. The shen-white differentiation is intact. Patchy periventricular and subcortical white matter hypoattenuation is nonspecific but may be related to small vessel ischemic disease. The visualized paranasal sinuses and mastoid air cells are clear. The surrounding soft tissues and osseous structures are unremarkable. IMPRESSION: 1. No acute intracranial hemorrhage. 2. Stable infarct on the left in the frontal parietal lobe. 3. No new areas of ischemia. HS:Y
--- NOTE | 2024-06-28 20:53 | DVHPN2 ---
Progress Note - Dictate Date Seen: June 28, 2024 Medical Necessity Reason Pt with a Central, PICC or Fol: Yes The following are medically ne: Eagle Catheter Reason for eagle catheter: Strict I&O Subjective Ms. Dawkins is a 63 years old female with a history of chronic kidney failure on hemodialysis, recent spine fracture, she came to the [facility] on 06/10/2024 with a chief complaint of back pain. I have seen and examined the patient, I have discussed with her nurse, she is very sleepy, she tries, but she falls asleep before she finished her answer She has been on baclofen 10 mg daily since 06/27/2024, was on gabapentin, 100 mg t.i.d. from 06/26/2024 to 06/28/2024 Blood culture, 06/11/2024: Urinalysis, 06/11/2024: Negative Plasma alcohol, 06/10/2024: <3 ABG, 06/08/2024: Respiratory alkalosis WBC/HB/PLT/MCV, 06/11/2024: 1.7/10.5/114/89.3, 06/15/2024: 2.2/9.7/124/87.7, 06/16/2024: 0.5/10.3/136/86.5, 06/17/2024: 7.2/9.9/152/87.3 Na, 06/10/2024: 136, 06/12/2024: 133, 06/14/2024: 125, 06/15/24: 130 BUN/CR, 05/2624: 47/7.51, 06/15/2024: 31/5.74 HGB A1c, 06/11/2024: 4.3 Liver function tests, 06/10/2024: Unremarkable TG/HDL/LDL/HDL, 06/11/2024: 63/106/47/40 Echocardiogram, 06/11/2024: LVEF is normal 50-55% Rv function normal Moderate pericardial effusion with no evidence of tamponade Large left pleural effusion Chest x-ray, 06/11/2024: Lines and tubes in satisfactory position. No significant interval change Chest x-ray, 06/15/2024: 1. Mild diffuse increased prominence of the pulmonary vasculature. 2. Lines and tubes unchanged CT head, 06/10/2024: Subacute stroke involving the left frontal lobe white matter which also may involve the left temporal lobe as well can not rule out acute features CT head 06/21/24: 1. No acute intracranial hemorrhage 2. Stable left parietal infarct unchanged from 06/10/2024. CT head, 06/28/2024: 1. No acute intracranial hemorrhage. 2. Stable infarct on the left in the frontal parietal lobe. 3. No new areas of ischemia. CT T-spine, 06/10/2024: No evidence of fracture in the thoracic spine CT lumbar spine, 06/10/2024: No acute fracture. Grade 1 anterolisthesis at L4-L5 with bilateral pars defects. Moderate to severe endplate degenerative changes at L4-L5, T12-L1, and L5-S1. There is severe spinal canal narrowing at L4-L5. Partially visualized moderate bilateral pleural effusions. Mild diffuse anasarca CTA head, neck, 06/10/2024: No significant vascular stenosis involving the head / neck. Moderate occlusion of the bilateral V4 segments vertebral arteries due to calcified and noncalcified plaques MRI head, 06/12/2024: 1. There is no acute intracranial process. 2. Chronic infarct in the superolateral left frontal lobe. (I saw another possible chronic stroke: Images 16) MRI lumbar spine, 06/19/2024: Severe spinal canal stenosis with severe bilateral lateral recess narrowing at L3-L4. Severe bilateral neural foramina stenosis at L3-L4 with moderate right and severe left-sided neural foramina stenosis at L4- L5. Grade 1 anterolisthesis of L4 on L5. vital signs Vital Sign Date Time Temp Pulse Resp B/P (MAP) Pulse Ox O2 Delivery O2 Flow Rate FiO2 06/28/24 18:00 69 06/28/24 18:00 97.8 16 153/47 (82) 97 97.8 06/28/24 18:00 Oxymizer 4 N/A Total Intake and Output 06/27/24 06/27/24 06/28/24 15:00 23:00 07:00 Intake Total 100 ml 450 ml 150 ml Balance 100 ml 450 ml 150 ml medications Current Medications Medications Dose Ordered Sig/Eric Route Start Time Stop Time Status Last Admin Dose Admin Ondansetron HCl 4 mg Q4HP PRN IV 06/11/24 02:00 Nitroglycerin 0.4 mg Q5MINP PRN SL 06/11/24 02:00 Albuterol 2.5 mg Q4HPRN PRN NEB 06/11/24 02:00 06/26/24 06:06 2.5 MG Ipratropium [place] 0.5 mg Q4HPRN PRN NEB 06/11/24 02:00 06/26/24 06:06 0.5 MG Ceftriaxone Sodium 50 ml @ 100 mls/hr DAILY@09 IV 06/13/24 09:00 06/28/24 10:56 100 MLS/HR Acetaminophen 650 mg Q6HP PRN GT 06/11/24 23:45 06/12/24 02:48 650 MG Nicardipine HCl 250 ml @ 50 mls/hr Q5H IV 06/13/24 14:45 UNV Hydralazine HCl 10 mg Q6HPRN PRN IV 06/17/24 00:00 06/27/24 06:59 10 MG Diagnostic Test (Pha) 1 strip Q6HR 06/20/24 00:00 06/28/24 17:40 1 STRIP Insulin Human Regular Q6HR SC 06/20/24 00:00 06/28/24 11:20 2 UNITS Dextrose 50 ml UD PRN IV 06/19/24 18:15 Dopamine HCl/ Dextrose 250 ml @ 15.544 mls/ hr Q16H5M IV 06/21/24 11:00 UNV Metoprolol Tartrate 50 mg BID PO 06/23/24 22:00 06/27/24 11:29 50 MG Amlodipine Besylate 10 mg DAILY PO 06/24/24 10:00 06/28/24 10:57 10 MG Vancomycin HCl 0 ml @ 0 mls/hr UD IV 06/23/24 20:45 Clonidine HCl 0.2 mg Q7D TD 06/25/24 14:30 06/25/24 16:35 0.2 MG Famotidine 10 mg EOD PO 06/27/24 10:00 06/27/24 11:30 10 MG Heparin Sodium (Porcine) 2,300 units AMANDA PRN IV 06/26/24 15:30 Acetaminophen/ Hydrocodone Bitart 1 tab Q6HPRN PRN PO 06/26/24 22:30 06/27/24 07:02 1 TAB Baclofen 10 mg DAILY PO 06/27/24 10:00 06/28/24 10:57 10 MG Morphine Sulfate 2 mg Q4HPRN PRN IV 06/27/24 00:45 06/27/24 05:51 2 MG Nifedipine 90 mg DAILY PO 06/28/24 10:00 06/28/24 11:10 90 MG Fluconazole 100 mg HS PO 06/27/24 22:00 06/27/24 22:11 100 MG objective The patient is well-nourished and well-developed with no distress. MENTAL STATUS: Subjective CRANIAL NERVES: Pupils are equal round and reactive to light briskly, normal external eye movement, normal sensation and motor examination in the lateral trigeminal nerve distribution, no facial weakness. SENSATION: Okay to light touch and pinprick MOTOR: Normal tone in the upper and lower extremity. Normal muscle bulk. No fasciculations. She moves the arms and legs REFLEXES: Deep tendon reflexes are symmetrical. No pathological reflexes. CEREBELLAR/COORDINATION: Deferred GAIT/STATION: deferred. No tenderness in the back to palpation laboratory and microbiology Laboratory Tests 06/28/24 03:20 Test 06/28/24 03:20 Range/Units Serum Glucose 107 H 74-106 mg/dL Problem List 2 chronic strokes in the left hemisphere per MRI and CT scan, asymptomatic Acute low back pain to rule out diskitis Acute respiratory failure Pancytopenia, better Hyponatremia Hypokalemia Chronic kidney failure Anisocoria noticed on 06/18/2024, uncertain clinical significance ? Back pain Assessment/Plan Monitoring Supportive treatment ICU care IV antibiotics Discontinue gabapentin and baclofen, consider resume as indicated Aspirin 81 mg daily Lipitor 40 mg daily DVT prophylaxis GI prophylaxis Consult hematology Infectious disease on case Cardiology on case Pulmonary on case Nephrology on case More recommendation per clinical course This medical document was created using an electronic medical record system with [employer] dictation system. Although this document has been carefully reviewed, there may still be some phonetic and typographical errors. These areas are purely typographical due to imperfections of the software programs, and do not reflect any compromise in the patient's medical care Prognosis poor Dietary Evaluation Review Comments: 1) If patient remains NPO > 7 days, consider EN/TPN to meet at least 75% estimated needs 2) If GI route is preferred, consider Nepro @ 25 mL/hr goal rate as tolerated. EN regimen will provide 1080 kcals, 49g Pro, and 447 mL free H2O per 24 hrs. EN regimen will meet ~90% estimated daily energy needs and ~47% estimated daily protein needs 3) Initiate Nephro-Susan @ 1 tb qd 4) Advance [facility] standard diet when medically feasible, pending [facility] approval 5) Follow-up with nephrology, cardiology, and pulmonology 6) Continue to monitor I&O, labs, and skin integrity Expected Outcomes/Goals: 1) patient to receive nutrition support within 7 days of NPO status 2) labs to improve 3) wound to improve 4) patient to be extubated and diet to advance 5) f/u in 2-3 days Plan discussed with: Other FORD ORTA MD June 28, 2024 20:53
--- NOTE | 2024-06-28 23:05 | DVHPN2 ---
Progress Note - Dictate Date Seen: June 28, 2024 Medical Necessity Reason Pt with a Central, PICC or Fol: Yes The following are medically ne: Eagle Catheter Reason for eagle catheter: Strict I&O Subjective Patient seen and examined at bedside. On supplemental oxygen Overnight events reviewed. vital signs Vital Sign Date Time Temp Pulse Resp B/P (MAP) Pulse Ox O2 Delivery O2 Flow Rate FiO2 06/28/24 22:41 176/62 06/28/24 22:10 68 06/28/24 22:00 19 97 Oxymizer 4 N/A 06/28/24 20:00 97.9 97.9 Total Intake and Output 06/27/24 06/27/24 06/28/24 15:00 23:00 07:00 Intake Total 100 ml 450 ml 150 ml Balance 100 ml 450 ml 150 ml medications Current Medications Medications Dose Ordered Sig/Eric Route Start Time Stop Time Status Last Admin Dose Admin Ondansetron HCl 4 mg Q4HP PRN IV 06/11/24 02:00 Nitroglycerin 0.4 mg Q5MINP PRN SL 06/11/24 02:00 Albuterol 2.5 mg Q4HPRN PRN NEB 06/11/24 02:00 06/26/24 06:06 2.5 MG Ipratropium [place] 0.5 mg Q4HPRN PRN NEB 06/11/24 02:00 06/26/24 06:06 0.5 MG Ceftriaxone Sodium 50 ml @ 100 mls/hr DAILY@09 IV 06/13/24 09:00 06/28/24 10:56 100 MLS/HR Acetaminophen 650 mg Q6HP PRN GT 06/11/24 23:45 06/12/24 02:48 650 MG Nicardipine HCl 250 ml @ 50 mls/hr Q5H IV 06/13/24 14:45 UNV Hydralazine HCl 10 mg Q6HPRN PRN IV 06/17/24 00:00 06/28/24 22:41 10 MG Diagnostic Test (Pha) 1 strip Q6HR 06/20/24 00:00 06/28/24 17:40 1 STRIP Insulin Human Regular Q6HR SC 06/20/24 00:00 06/28/24 11:20 2 UNITS Dextrose 50 ml UD PRN IV 06/19/24 18:15 Dopamine HCl/ Dextrose 250 ml @ 15.544 mls/ hr Q16H5M IV 06/21/24 11:00 UNV Metoprolol Tartrate 50 mg BID PO 06/23/24 22:00 06/28/24 21:10 50 MG Amlodipine Besylate 10 mg DAILY PO 06/24/24 10:00 06/28/24 10:57 10 MG Vancomycin HCl 0 ml @ 0 mls/hr UD IV 06/23/24 20:45 Clonidine HCl 0.2 mg Q7D TD 06/25/24 14:30 06/25/24 16:35 0.2 MG Famotidine 10 mg EOD PO 06/27/24 10:00 06/27/24 11:30 10 MG Heparin Sodium (Porcine) 2,300 units AMANDA PRN IV 06/26/24 15:30 Acetaminophen/ Hydrocodone Bitart 1 tab Q6HPRN PRN PO 06/26/24 22:30 06/27/24 07:02 1 TAB Morphine Sulfate 2 mg Q4HPRN PRN IV 06/27/24 00:45 06/27/24 05:51 2 MG Nifedipine 90 mg DAILY PO 06/28/24 10:00 06/28/24 11:10 90 MG Fluconazole 100 mg HS PO 06/27/24 22:00 06/28/24 21:11 100 MG objective Gen.: Patient lying in bed in no apparent distress. On supplemental oxygen Head: Normocephalic, atraumatic. Eyes: EOMI/PERRLA. Ears: Normal hearing. Normal anatomy. Neck/trachea: Trachea midline, supple. Nose: Normal external anatomy. Mouth: Moist mucous membranes. Chest: Decreased air entry bilaterally. No wheezing or rhonchi. Cardiovascular: Positive S1, positive S2. Regular rate and rhythm. Abdomen: Positive bowel sounds in all 4 quadrants. Soft, non-tender, non- distended. : Deferred. Rectal: Deferred. Skin: Warm, dry. Intact. Extremities: 2+ radial pulses bilaterally. No lower extremity edema. Neuro: Awake, alert, oriented x3. No gross motor or sensory deficits. Cranial nerves II through XII intact. Gait not assessed laboratory and microbiology Laboratory Tests 06/28/24 03:20 Test 06/28/24 03:20 Range/Units Serum Glucose 107 H 74-106 mg/dL Assessment/Plan Impression: Acute hypoxic respiratory failure Acute CVA Acute encephalopathy ESRD, on hemodialysis Pulmonary edema Shock Obesity BMI 33.3 Events: Remains on supplemental oxygen On 4 LPM Oxymizer Taper O2 as tolerated Head of bed elevation Aspiration precautions Incentive spirometry Continue antibiotics Continue bronchodilators Antifungal Pepcid for GI prophylaxis Monitor hemoglobin Accu-Cheks, ISS HD per Nephrology. Monitor renal function Monitor electrolytes. Supplement as necessary. Potassium supplementation Monitor ins and outs. Plan for head CT Plan for STAT ABG Increased O2 requirements Hemodialysis tomorrow Labs and imaging reviewed Plan: S/p extubation Supplemental oxygen Titrate to keep O2 sats above 92%. Monitor blood pressure Continue antibiotics. F/u cultures. Continue bronchodilators Accu-Cheks, ISS Echo reviewed Cardiology recs appreciated Pressors as necessary for hemodynamic support Titrate to keep mean arterial pressure greater than 65 mmHg. HD per Nephrology Monitor renal function Monitor electrolytes. Supplement as necessary. Monitor ins and outs. Maintain euvolemia. GI prophylaxis. DVT prophylaxis. Prognosis: Poor given patient's multiple co-morbidities. Rest of plan per hospitalist and other consultants. Thank you, LISA Garcia, for allowing me to participate in this patient's care. Further recommendations will depend on the patient's clinical course. Please do not hesitate to contact me if you have any questions or concerns. This medical document was created using an electronic medical record system with [employer] dictation system. Although these documentations are being carefully reviewed, there may still be some phonetic and typographical changes. The errors are purely typographical, due to imperfection on the software program, and do not reflect any compromise in the patient's medical care. Dietary Evaluation Review Comments: 1) If patient remains NPO > 7 days, consider EN/TPN to meet at least 75% estimated needs 2) If GI route is preferred, consider Nepro @ 25 mL/hr goal rate as tolerated. EN regimen will provide 1080 kcals, 49g Pro, and 447 mL free H2O per 24 hrs. EN regimen will meet ~90% estimated daily energy needs and ~47% estimated daily protein needs 3) Initiate Nephro-Susan @ 1 tb qd 4) Advance to 60g [facility] renal standard diet when medically feasible, pending [facility] approval 5) Follow-up with nephrology, cardiology, and pulmonology 6) Continue to monitor I&O, labs, and skin integrity Expected Outcomes/Goals: 1) patient to receive nutrition support within 7 days of NPO status 2) labs to improve 3) wound to improve 4) patient to be extubated and diet to advance 5) f/u in 2-3 days Plan discussed with: Patient, Other (RN Dipti) NAE BELLAMY MD June 28, 2024 23:05
--- NOTE | 2024-06-28 23:59 | DVHPN2 ---
Progress Note - Dictate Date Seen: June 28, 2024 Medical Necessity Reason Pt with a Central, PICC or Fol: Yes The following are medically ne: Eagle Catheter Reason for eagle catheter: Strict I&O Subjective Patient was seen and evaluated in follow up in the ICU. Patient is complaining of low back discomfort. Patient is on 4 L cool aerosol. Patient endorses not sleeping well and feeling drowsy. WBC 3.8, HGB 8.2, HCT 23.8, K 3, CO2 32, [employer] 3.21. vital signs Vital Sign Date Time Temp Pulse Resp B/P (MAP) Pulse Ox O2 Delivery O2 Flow Rate FiO2 06/28/24 12:00 17 98 Cool Aerosol 4 N/A 06/28/24 12:00 58 06/28/24 12:00 133/47 (75) 06/28/24 11:00 97.8 97.8 Total Intake and Output 06/27/24 06/27/24 06/28/24 15:00 23:00 07:00 Intake Total 100 ml 450 ml 150 ml Balance 100 ml 450 ml 150 ml medications Current Medications Medications Dose Ordered Sig/Eric Route Start Time Stop Time Status Last Admin Dose Admin Ondansetron HCl 4 mg Q4HP PRN IV 06/11/24 02:00 Nitroglycerin 0.4 mg Q5MINP PRN SL 06/11/24 02:00 Albuterol 2.5 mg Q4HPRN PRN NEB 06/11/24 02:00 06/26/24 06:06 2.5 MG Ipratropium [place] 0.5 mg Q4HPRN PRN NEB 06/11/24 02:00 06/26/24 06:06 0.5 MG Ceftriaxone Sodium 50 ml @ 100 mls/hr DAILY@09 IV 06/13/24 09:00 06/28/24 10:56 100 MLS/HR Acetaminophen 650 mg Q6HP PRN GT 06/11/24 23:45 06/12/24 02:48 650 MG Nicardipine HCl 250 ml @ 50 mls/hr Q5H IV 06/13/24 14:45 UNV Hydralazine HCl 10 mg Q6HPRN PRN IV 06/17/24 00:00 06/27/24 06:59 10 MG Diagnostic Test (Pha) 1 strip Q6HR 06/20/24 00:00 06/28/24 11:10 1 STRIP Insulin Human Regular Q6HR SC 06/20/24 00:00 06/28/24 11:20 2 UNITS Dextrose 50 ml UD PRN IV 06/19/24 18:15 Dopamine HCl/ Dextrose 250 ml @ 15.544 mls/ hr Q16H5M IV 06/21/24 11:00 UNV Metoprolol Tartrate 50 mg BID PO 06/23/24 22:00 06/27/24 11:29 50 MG Amlodipine Besylate 10 mg DAILY PO 06/24/24 10:00 06/28/24 10:57 10 MG Vancomycin HCl 0 ml @ 0 mls/hr UD IV 06/23/24 20:45 Clonidine HCl 0.2 mg Q7D TD 06/25/24 14:30 06/25/24 16:35 0.2 MG Famotidine 10 mg EOD PO 06/27/24 10:00 06/27/24 11:30 10 MG Heparin Sodium (Porcine) 2,300 units AMANDA PRN IV 06/26/24 15:30 Acetaminophen/ Hydrocodone Bitart 1 tab Q6HPRN PRN PO 06/26/24 22:30 06/27/24 07:02 1 TAB Gabapentin 100 mg TID PO 06/26/24 22:00 06/28/24 05:56 100 MG Baclofen 10 mg DAILY PO 06/27/24 10:00 06/28/24 10:57 10 MG Morphine Sulfate 2 mg Q4HPRN PRN IV 06/27/24 00:45 06/27/24 05:51 2 MG Nifedipine 90 mg DAILY PO 06/28/24 10:00 06/28/24 11:10 90 MG Fluconazole 100 mg HS PO 06/27/24 22:00 06/27/24 22:11 100 MG objective GENERAL: Alert and oriented x 3. No acute distress. EYES: PERRL, EOMI. Anicteric. HENT: Moist mucous membranes. LUNGS: Decreased breath sounds. CARDIOVASCULAR: Regular rate and rhythm. ABDOMEN: Soft, nontender and nondistended. EXTREMITIES: No edema. NEUROLOGIC: No focal neurological deficits. SKIN: Warm, dry. laboratory and microbiology Laboratory Tests 06/28/24 03:20 Test 06/28/24 03:20 Range/Units Serum Glucose 107 H 74-106 mg/dL Problem List Acute CVA. Hypertensive emergency. Questionable coronary artery disease. Moderate pericardial effusion. Acute hypoxic respiratory failure. End-stage renal disease on hemodialysis. History of T12 compression fracture. Assessment/Plan Continued all current supportive medical care. Amlodipine, Clonidine. IV antibiotics as ordered. IV Hydralazine for SBP >160. Metoprolol. Morphine for pain management. GI prophylactics. Additional plan as per the hospital course. Critical care time of 45 minutes provided to include time spent evaluation of patient at bedside, when appropriate patient/family education for diagnosis, treatment plan, review of pertinent medical information and discussion of care with specialty providers and PCP. Dietary Evaluation Review Comments: 1) If patient remains NPO > 7 days, consider EN/TPN to meet at least 75% estimated needs 2) If GI route is preferred, consider Nepro @ 25 mL/hr goal rate as tolerated. EN regimen will provide 1080 kcals, 49g Pro, and 447 mL free H2O per 24 hrs. EN regimen will meet ~90% estimated daily energy needs and ~47% estimated daily protein needs 3) Initiate Nephro-Susan @ 1 tb qd 4) Advance to 60g [facility] renal standard diet when medically feasible, pending [employer] approval 5) Follow-up with nephrology, cardiology, and pulmonology 6) Continue to monitor I&O, labs, and skin integrity Expected Outcomes/Goals: 1) patient to receive nutrition support within 7 days of NPO status 2) labs to improve 3) wound to improve 4) patient to be extubated and diet to advance 5) f/u in 2-3 days Plan discussed with: Patient SHAUN RAMOS MD June 28, 2024 13:15
[2024-06-29] VITALS (60 sets, daily range): BP systolic 122–181; BP diastolic 46–89; PULSE 53–92; RESP 10–23; TEMP 97.7–98.6; O2SAT 83–100
[2024-06-29 03:54] LABS: Basophils # (auto) 0 10 ^3/uL (0-0.2); Basophils % (auto) 0.3 % (0.0-2.0); Eosinophils # (auto) 0 10 ^3/uL (0-0.8); Eosinophils % (auto) 0.7 % (0.0-7.0); Hematocrit 26.3 % (36.0-46.0); Hemoglobin 8.9 g/dL (12.2-16.2); Lymphocytes # (auto) 0.4 10 ^3/uL (0.4-5.4); Lymphocytes % (auto) 9.1 % (10.0-50.0); Mean Corpuscular Hgb Conc. 33.7 g/dL (32.0-36.0); Mean Corpuscular Volume 89.1 fL (80.0-100.0); Monocytes # (auto) 0.2 10 ^3/uL (0-1.3); Monocytes % (auto) 4.8 % (0.0-12.0); Neutrophils # (auto) 3.5 10 ^3/uL (1.6-8.6); Neutrophils % (auto) 85.1 % (37.0-80.0); Nucleated Red Blood Cells % 0.3 %; Platelet Count (auto) 168 10^3/uL (140-450); Red Blood Cells 2.95 10^6/uL (4.0-5.20); Red Cell Distribution Width 17.8 % (11.8-14.3); White Blood Cell 4.1 10^3/uL (4.4-10.8)
[2024-06-29 04:06] LABS: Chloride 101 mmol/L (98-107); Sodium 142 mmol/L (136-145)
[2024-06-29 04:07] LABS: Anion Gap 8 (5-15)
[2024-06-29 04:12] LABS: Glucose 78 mg/dL (74-106)
[2024-06-29 04:13] LABS: Blood Urea Nitrogen 29 mg/dL (9-23); Carbon Dioxide 33 mmol/L (20-31); Potassium 3.1 mmol/L (3.5-5.1)
[2024-06-29] MEDS: POTASSIUM EFFERVESENT TAB 25 MEQ PO ONE (06:24)
[2024-06-29] MEDS: SODIUM CHL 0.9% 1000 ML BAG XX ONE (08:37)
[2024-06-29] MEDS ORDERED: HEPARIN SODIUM (PORCINE) 5000 UNITS/ML 1ML VIAL IV ONE (09:00)
--- NOTE | 2024-06-29 09:41 | DVHPN2 ---
Progress Note - Dictate Date Seen: June 29, 2024 Medical Necessity Reason Pt with a Central, PICC or Fol: Yes The following are medically ne: Eagle Catheter Reason for eagle catheter: Strict I&O Subjective Patient underwent HD today. She reports low back discomfort. S/P extubation on 06/25. Currently she is on nasal cannula 4L. vital signs Vital Sign Date Time Temp Pulse Resp B/P (MAP) Pulse Ox O2 Delivery O2 Flow Rate FiO2 06/29/24 06:00 66 06/29/24 06:00 16 141/53 (82) 95 06/29/24 06:00 Oxymizer 4 N/A 06/29/24 04:00 97.7 97.7 Total Intake and Output 06/28/24 06/28/24 06/29/24 15:00 23:00 07:00 Intake Total 50 ml 150 ml 180 ml Output Total 0 ml Balance 50 ml 150 ml 180 ml medications Current Medications Medications Dose Ordered Sig/Eric Route Start Time Stop Time Status Last Admin Dose Admin Ondansetron HCl 4 mg Q4HP PRN IV 06/11/24 02:00 Nitroglycerin 0.4 mg Q5MINP PRN SL 06/11/24 02:00 Albuterol 2.5 mg Q4HPRN PRN NEB 06/11/24 02:00 06/26/24 06:06 2.5 MG Ipratropium [place] 0.5 mg Q4HPRN PRN NEB 06/11/24 02:00 06/26/24 06:06 0.5 MG Ceftriaxone Sodium 50 ml @ 100 mls/hr DAILY@09 IV 06/13/24 09:00 06/28/24 10:56 100 MLS/HR Acetaminophen 650 mg Q6HP PRN GT 06/11/24 23:45 06/12/24 02:48 650 MG Nicardipine HCl 250 ml @ 50 mls/hr Q5H IV 06/13/24 14:45 UNV Hydralazine HCl 10 mg Q6HPRN PRN IV 06/17/24 00:00 06/28/24 22:41 10 MG Diagnostic Test (Pha) 1 strip Q6HR 06/20/24 00:00 06/29/24 05:43 1 STRIP Insulin Human Regular Q6HR SC 06/20/24 00:00 06/28/24 11:20 2 UNITS Dextrose 50 ml UD PRN IV 06/19/24 18:15 Dopamine HCl/ Dextrose 250 ml @ 15.544 mls/ hr Q16H5M IV 06/21/24 11:00 UNV Metoprolol Tartrate 50 mg BID PO 06/23/24 22:00 06/28/24 21:10 50 MG Amlodipine Besylate 10 mg DAILY PO 06/24/24 10:00 06/28/24 10:57 10 MG Vancomycin HCl 0 ml @ 0 mls/hr UD IV 06/23/24 20:45 Clonidine HCl 0.2 mg Q7D TD 06/25/24 14:30 06/25/24 16:35 0.2 MG Famotidine 10 mg EOD PO 06/27/24 10:00 06/27/24 11:30 10 MG Heparin Sodium (Porcine) 2,300 units AMANDA PRN IV 06/26/24 15:30 Cancel Acetaminophen/ Hydrocodone Bitart 1 tab Q6HPRN PRN PO 06/26/24 22:30 06/27/24 07:02 1 TAB Morphine Sulfate 2 mg Q4HPRN PRN IV 06/27/24 00:45 06/27/24 05:51 2 MG Nifedipine 90 mg DAILY PO 06/28/24 10:00 06/28/24 11:10 90 MG Fluconazole 100 mg HS PO 06/27/24 22:00 06/28/24 21:11 100 MG objective General Appearance: on nasal canula HEENT: normal Respiratory: good air entry Cardiovascular: Regular rate, Normal S1, Normal S2 Abdominal: Normal bowel sounds, Soft, No tenderness Extremities: Other (BLE pitting edema 2+) Skin: No rashes Neuro grossly intact laboratory and microbiology Laboratory Tests 06/29/24 03:10 Test 06/29/24 03:10 Range/Units Serum Glucose 78 74-106 mg/dL Assessment/Plan Patient is a 63-year-old female presents to the hospital with: Leucopenia Vertebral Discitis subacute CVA Acute encephalopathy Acute hypoxic respiratory S/P intubation on mechanical ventilator ESRD on HD Fluid overload Hypertensive emergency Hx T12 compression fracture Recommendations: S/P Extubation on 06/25 MRI lumbar spine done 06/19 is wo contrast which is not very ideal for infection. there is no comment about discitis or phlegmon. however, MRI in [facility] on 05/22 commented about discitis. would consider resuming and completing the course for now since she already has been on antibiotics since 05/22. tagged wbc scan may be a better study since she on HD, mri w contrast might be difficult. recommend 6 weeks of IV Vancomycin/ Ceftriaxone from 06/11. reviewed [facility] records in detail: She had low wbc from 03/23/2024 with 3.4 with intermittent 1.8 and she has been admitted 2-3 times and wbc is in same range. no work up done She had mri spine with on 05/22 shows hypointense T1 and hyperintense T2 at L3-L4 concerning for discitis osteomyelitis. Hyperintense T2 signal along epidural space L3-L4 for 5mm AP diameter concerning for Phlegmon. ID Dr Carlisle saw the patient and recommended IV Vancomycin for 6 weeks. There is no positive blood cultures or biopsy done. His notes on 05/23 recommended 6 weeks of IV vancomycin ( switched from ceftriaxone for low wbc). since leucopenia was present in prior admissions too, its unlikely due to Vancomycin discussed with nephrology, reviewed old labs, back in 2022 also her wbc was in 3k. unsure if she had work up done platelets were in 200 in 2023 but later its been low too MRI showed Severe spinal canal stenosis with severe bilateral lateral recess narrowing at L3-L4. Severe bilateral neural foramina stenosis at L3-L4 with moderate right and severe left-sided neural foramina stenosis at L4-L5. Grade 1 anterolisthesis of L4 on L5. 06/29, Vancomycin Random is 15.3 Antibiotic status: Ceftriaxone IV [Started on 06/11 - Ongoing] Vancomycin IV [Restarted on 06/23 - Ongoing] Prognosis guarded due multiple co morbidities Discussed with Dr Mccollum Thank you for consult. Dietary Evaluation Review Comments: 1) If patient remains NPO > 7 days, consider EN/TPN to meet at least 75% estimated needs 2) If GI route is preferred, consider Nepro @ 25 mL/hr goal rate as tolerated. EN regimen will provide 1080 kcals, 49g Pro, and 447 mL free H2O per 24 hrs. EN regimen will meet ~90% estimated daily energy needs and ~47% estimated daily protein needs 3) Initiate Nephro-Susan @ 1 tb qd 4) [facility] when medically feasible, pending [facility] approval 5) Follow-up with nephrology, cardiology, and pulmonology 6) Continue to monitor I&O, labs, and skin integrity Expected Outcomes/Goals: 1) patient to receive nutrition support within 7 days of NPO status 2) labs to improve 3) wound to improve 4) patient to be extubated and diet to advance 5) f/u in 2-3 days Plan discussed with: GONZÁLEZ Vidal MD June 29, 2024 09:41
--- NOTE | 2024-06-29 14:48 | DVHPN2 ---
Subjective Patient's extubated on 06/25, currently on nasal Oxymizer, more awake alert today after be discontinued the gabapentin and baclofen. Reviewed: Care Plan Changes from previous H/P or p: No Changes Objective Vitals Vital Signs Date Time Temp Pulse Resp B/P (MAP) Pulse Ox O2 Delivery O2 Flow Rate FiO2 06/29/24 12:45 88 17 170/71 (104) 100 06/29/24 12:00 Oxymizer 4 N/A 06/29/24 12:00 98.1 98.1 Intake/Output Intake and Output 06/29/24 07:00 Intake Total 380 ml Output Total 0 ml Balance 380 ml Intake Oral 330 ml IV Total 50 ml Stool Total 0 ml Exam HEENT pupils are reactive , brisk reaction somewhat unequal. 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 no edema [employer] extubated following commands Medications Current Medications Medications Dose Ordered Sig/Eric Route Start Time Stop Time Status Last Admin Dose Admin Ondansetron HCl 4 mg Q4HP PRN IV 06/11/24 02:00 Nitroglycerin 0.4 mg Q5MINP PRN SL 06/11/24 02:00 Albuterol 2.5 mg Q4HPRN PRN NEB 06/11/24 02:00 06/26/24 06:06 2.5 MG Ipratropium [place] 0.5 mg Q4HPRN PRN NEB 06/11/24 02:00 06/26/24 06:06 0.5 MG Ceftriaxone Sodium 50 ml @ 100 mls/hr DAILY@09 IV 06/13/24 09:00 06/29/24 12:12 100 MLS/HR Acetaminophen 650 mg Q6HP PRN GT 06/11/24 23:45 06/12/24 02:48 650 MG Nicardipine HCl 250 ml @ 50 mls/hr Q5H IV 06/13/24 14:45 UNV Hydralazine HCl 10 mg Q6HPRN PRN IV 06/17/24 00:00 06/28/24 22:41 10 MG Diagnostic Test (Pha) 1 strip Q6HR 06/20/24 00:00 06/29/24 12:20 1 STRIP Insulin Human Regular Q6HR SC 06/20/24 00:00 06/28/24 11:20 2 UNITS Dextrose 50 ml UD PRN IV 06/19/24 18:15 Dopamine HCl/ Dextrose 250 ml @ 15.544 mls/ hr Q16H5M IV 06/21/24 11:00 UNV Metoprolol Tartrate 50 mg BID PO 06/23/24 22:00 06/29/24 12:21 50 MG Amlodipine Besylate 10 mg DAILY PO 06/24/24 10:00 06/29/24 12:22 10 MG Vancomycin HCl 0 ml @ 0 mls/hr UD IV 06/23/24 20:45 Clonidine HCl 0.2 mg Q7D TD 06/25/24 14:30 06/25/24 16:35 0.2 MG Famotidine 10 mg EOD PO 06/27/24 10:00 06/29/24 12:22 10 MG Heparin Sodium (Porcine) 2,300 units AMANDA PRN IV 06/26/24 15:30 Cancel Acetaminophen/ Hydrocodone Bitart 1 tab Q6HPRN PRN PO 06/26/24 22:30 06/27/24 07:02 1 TAB Morphine Sulfate 2 mg Q4HPRN PRN IV 06/27/24 00:45 06/27/24 05:51 2 MG Nifedipine 90 mg DAILY PO 06/28/24 10:00 06/28/24 11:10 90 MG Fluconazole 100 mg HS PO 06/27/24 22:00 06/28/24 21:11 100 MG Laboratory Results Laboratory Tests 06/29/24 03:10 Chemistry Test 06/29/24 03:10 Calcium Level 9.0 mg/dL (8.7-10.4) Urinalysis Test 06/11/24 03:00 Urine Color Light-yellow (Yellow) Urine Clarity Turbid (Clear) H Urine pH 8.0 (5.0-9.0) Urine Specific [place] 1.008 (1.001-1.035) Urine Protein 3+ (Negative) H Urine Ketones Negative (Negative) Urine Blood Negative /uL (Negative) Urine Nitrite Negative (Negative) Urine Bilirubin Negative (Negative) Urine Urobilinogen Normal mg/dL (Negative) Urine Leukocyte Esterase 1+ /uL (Negative) Urine RBC 10 /hpf (0 - 4) Urine Microscopic WBC 41 /HPF (0-5) H Urine Squamous Epithelial Cells Mod /hpf (<5) Urine Bacteria None seen /hpf (None Seen) Urine Glucose 2+ mg/dL (Normal) H Blood Gas Results Test 06/28/24 18:01 Arterial Blood pH 7.443 (7.350-7.450) FiO2 % 40.0 Microbiology Microbiology Date/Time Source Procedure Growth Status 06/13/24 08:45 Nose MRSA Screen - Final Complete 06/11/24 23:55 Blood Blood Culture - Final NO GROWTH AFTER 5 DAYS OF INCUBATION. Complete Assessment/Plan Assessment/Plan 63-year-old female with a known history of hypertension, dyslipidemia, coronary artery disease, anxiety disorder, recent mechanical fall found to have acute small T12 compression fracture, L3-4 lumbar diskitis presented to the hospital with right-sided weakness altered mental status eventually intubated in the ER for airway protection. Patient was found to have acute/subacute left frontal and temporal infarct currently MRI brain is pending. 1. Acute hypoxic respiratory failure requiring intubation with mechanical ventilation secondary to metabolic encephalopathy , extubated on 06/25 2. Metabolic encephalopathy ruled in acute CVA 3.Subacute CVA with the left frontal and temporal infarct, MRI brain shows no evidence of acute infarct 4. Hypertensive emergency with the end-organ involvement , off the nicardipine drip 5. End-stage renal disease on hemodialysis received hemodialysis 6. Coronary artery disease 7. L3-4 lumbar diskitis/osteomyelitis, resume IV vancomycin and consult infectious disease specialist 8. Physical deconditioning 9. Anisocoria, repeat head CT shows no evidence of any acute pathology besides old left frontal /parietal infarct -discontinue gabapentin and baclofen. -physical therapy evaluation and treatment, diet as tolerated, can downgraded to telemetry with a sitter. Plan discussed with: Patient, Other My Orders Orders - BENJA ROBBINS MD Procedure Category Date Status Time Head Without Contrast CT 06/28/24 Resulted 16:14 Abg W/ Co-Ox RT 06/28/24 Logged 16:55 Date of Service: June 29, 2024 Billing Provider: BENJA ROBBINS MD Common Visit Codes: NOT BILLABLE BENJA ROBBINS MD June 29, 2024 14:47
--- NOTE | 2024-06-29 14:57 | DVHPN2 ---
Progress Note - Dictate Date Seen: June 29, 2024 Medical Necessity Reason Pt with a Central, PICC or Fol: Yes The following are medically ne: Eagle Catheter Reason for eagle catheter: Strict I&O Subjective Patient underwent dialysis today she has no complaints. vital signs Vital Sign Date Time Temp Pulse Resp B/P (MAP) Pulse Ox O2 Delivery O2 Flow Rate FiO2 06/29/24 12:45 88 17 170/71 (104) 100 06/29/24 12:00 Oxymizer 4 N/A 06/29/24 12:00 98.1 98.1 Total Intake and Output 06/28/24 06/28/24 06/29/24 15:00 23:00 07:00 Intake Total 50 ml 150 ml 180 ml Output Total 0 ml Balance 50 ml 150 ml 180 ml medications Current Medications Medications Dose Ordered Sig/Eric Route Start Time Stop Time Status Last Admin Dose Admin Ondansetron HCl 4 mg Q4HP PRN IV 06/11/24 02:00 Nitroglycerin 0.4 mg Q5MINP PRN SL 06/11/24 02:00 Albuterol 2.5 mg Q4HPRN PRN NEB 06/11/24 02:00 06/26/24 06:06 2.5 MG Ipratropium [place] 0.5 mg Q4HPRN PRN NEB 06/11/24 02:00 06/26/24 06:06 0.5 MG Ceftriaxone Sodium 50 ml @ 100 mls/hr DAILY@09 IV 06/13/24 09:00 06/29/24 12:12 100 MLS/HR Acetaminophen 650 mg Q6HP PRN GT 06/11/24 23:45 06/12/24 02:48 650 MG Nicardipine HCl 250 ml @ 50 mls/hr Q5H IV 06/13/24 14:45 UNV Hydralazine HCl 10 mg Q6HPRN PRN IV 06/17/24 00:00 06/28/24 22:41 10 MG Diagnostic Test (Pha) 1 strip Q6HR 06/20/24 00:00 06/29/24 12:20 1 STRIP Insulin Human Regular Q6HR SC 06/20/24 00:00 06/28/24 11:20 2 UNITS Dextrose 50 ml UD PRN IV 06/19/24 18:15 Dopamine HCl/ Dextrose 250 ml @ 15.544 mls/ hr Q16H5M IV 06/21/24 11:00 UNV Metoprolol Tartrate 50 mg BID PO 06/23/24 22:00 06/29/24 12:21 50 MG Amlodipine Besylate 10 mg DAILY PO 06/24/24 10:00 06/29/24 12:22 10 MG Vancomycin HCl 0 ml @ 0 mls/hr UD IV 06/23/24 20:45 Clonidine HCl 0.2 mg Q7D TD 06/25/24 14:30 06/25/24 16:35 0.2 MG Famotidine 10 mg EOD PO 06/27/24 10:00 06/29/24 12:22 10 MG Heparin Sodium (Porcine) 2,300 units AMANDA PRN IV 06/26/24 15:30 Cancel Acetaminophen/ Hydrocodone Bitart 1 tab Q6HPRN PRN PO 06/26/24 22:30 06/27/24 07:02 1 TAB Morphine Sulfate 2 mg Q4HPRN PRN IV 06/27/24 00:45 06/27/24 05:51 2 MG Nifedipine 90 mg DAILY PO 06/28/24 10:00 06/28/24 11:10 90 MG Fluconazole 100 mg HS PO 06/27/24 22:00 06/28/24 21:11 100 MG objective HEENT: Oral mucosa dry Pulmonary: Diminished lung sounds bilaterally Cardiovascular S1-S2, no S3 or S4 Abdomen: Bowel sounds positive, soft no rebound tenderness Skin: No rash Neurological: Alert and oriented Hemodialysis access right upper chest CVC laboratory and microbiology Laboratory Tests 06/29/24 03:10 Test 06/29/24 03:10 Range/Units Serum Glucose 78 74-106 mg/dL Assessment/Plan Assessment: End-stage renal disease on HD Hypokalemia Anemia of renal disease. Pneumonia Acute hypoxic Respiratory failure, on mechanical ventilation HTN urgency Subacute stroke. T-spine fracture. Leukopenia Plan: Dialysis completed today, 3 L UF. Next planned for Sunday Fluid restriction less than 1 L per day On metoprolol 50 mg twice a day, amlodipine ID consult appreciated Continue IV antibiotics ANANTH post HD as needed, goal Hb: 10-11 g/dl Okay to downgrade from ICU Thank you very much for allowing us to participate in the care of this patient. Dietary Evaluation Review Comments: 1) If patient remains NPO > 7 days, consider EN/TPN to meet at least 75% estimated needs 2) If GI route is preferred, consider Nepro @ 25 mL/hr goal rate as tolerated. EN regimen will provide 1080 kcals, 49g Pro, and 447 mL free H2O per 24 hrs. EN regimen will meet ~90% estimated daily energy needs and ~47% estimated daily protein needs 3) Initiate Nephro-Susan @ 1 tb qd 4) Advance to 60g CCHO renal standard diet when medically feasible, pending [facility] approval 5) Follow-up with nephrology, cardiology, and pulmonology 6) Continue to monitor I&O, labs, and skin integrity Expected Outcomes/Goals: 1) patient to receive nutrition support within 7 days of NPO status 2) labs to improve 3) wound to improve 4) patient to be extubated and diet to advance 5) f/u in 2-3 days Plan discussed with: Patient JUAN R MARIEE MD June 29, 2024 14:57
[2024-06-29] MEDS: EPOETIN ALFA-EPBX 10,000 UNIT/1ML VIAL SC ONE (21:38)
[2024-06-29] MEDS: VANCOMYCIN 500mg/100mL 100 ML IV ONE (21:39)
--- NOTE | 2024-06-29 22:55 | DVHPN2 ---
Progress Note - Dictate Date Seen: June 29, 2024 Medical Necessity Reason Pt with a Central, PICC or Fol: Yes The following are medically ne: Eagle Catheter Reason for eagle catheter: Strict I&O Subjective Patient was seen and evaluated in follow up in the ICU. Patient is more awake and alert today. Patient is complaining of low back discomfort. Patient is on 4 L Oxymizer. WBC 4.1, HGB 8.9, HCT 26.3, K 3.1, CO2 33, BUN 29, WIRE COATER 4.12. vital signs Vital Sign Date Time Temp Pulse Resp B/P (MAP) Pulse Ox O2 Delivery O2 Flow Rate FiO2 06/29/24 12:45 88 17 170/71 (104) 100 06/29/24 12:00 Oxymizer 4 N/A 06/29/24 12:00 98.1 98.1 Total Intake and Output 06/28/24 06/28/24 06/29/24 15:00 23:00 07:00 Intake Total 50 ml 150 ml 180 ml Output Total 0 ml Balance 50 ml 150 ml 180 ml medications Current Medications Medications Dose Ordered Sig/Eric Route Start Time Stop Time Status Last Admin Dose Admin Ondansetron HCl 4 mg Q4HP PRN IV 06/11/24 02:00 Nitroglycerin 0.4 mg Q5MINP PRN SL 06/11/24 02:00 Albuterol 2.5 mg Q4HPRN PRN NEB 06/11/24 02:00 06/26/24 06:06 2.5 MG Ipratropium [place] 0.5 mg Q4HPRN PRN NEB 06/11/24 02:00 06/26/24 06:06 0.5 MG Ceftriaxone Sodium 50 ml @ 100 mls/hr DAILY@09 IV 06/13/24 09:00 06/29/24 12:12 100 MLS/HR Acetaminophen 650 mg Q6HP PRN GT 06/11/24 23:45 06/12/24 02:48 650 MG Nicardipine HCl 250 ml @ 50 mls/hr Q5H IV 06/13/24 14:45 UNV Hydralazine HCl 10 mg Q6HPRN PRN IV 06/17/24 00:00 06/28/24 22:41 10 MG Diagnostic Test (Pha) 1 strip Q6HR 06/20/24 00:00 06/29/24 12:20 1 STRIP Insulin Human Regular Q6HR SC 06/20/24 00:00 06/28/24 11:20 2 UNITS Dextrose 50 ml UD PRN IV 06/19/24 18:15 Dopamine HCl/ Dextrose 250 ml @ 15.544 mls/ hr Q16H5M IV 06/21/24 11:00 UNV Metoprolol Tartrate 50 mg BID PO 06/23/24 22:00 06/29/24 12:21 50 MG Amlodipine Besylate 10 mg DAILY PO 06/24/24 10:00 06/29/24 12:22 10 MG Vancomycin HCl 0 ml @ 0 mls/hr UD IV 06/23/24 20:45 Clonidine HCl 0.2 mg Q7D TD 06/25/24 14:30 06/25/24 16:35 0.2 MG Famotidine 10 mg EOD PO 06/27/24 10:00 06/29/24 12:22 10 MG Heparin Sodium (Porcine) 2,300 units AMANDA PRN IV 06/26/24 15:30 Cancel Acetaminophen/ Hydrocodone Bitart 1 tab Q6HPRN PRN PO 06/26/24 22:30 06/27/24 07:02 1 TAB Morphine Sulfate 2 mg Q4HPRN PRN IV 06/27/24 00:45 06/27/24 05:51 2 MG Nifedipine 90 mg DAILY PO 06/28/24 10:00 06/28/24 11:10 90 MG Fluconazole 100 mg HS PO 06/27/24 22:00 06/28/24 21:11 100 MG objective GENERAL: Alert and oriented x 3. No acute distress. EYES: PERRL, EOMI. Anicteric. HENT: Moist mucous membranes. LUNGS: Decreased breath sounds. CARDIOVASCULAR: Regular rate and rhythm. ABDOMEN: Soft, nontender and nondistended. EXTREMITIES: No edema. NEUROLOGIC: No focal neurological deficits. SKIN: Warm, dry. laboratory and microbiology Laboratory Tests 06/29/24 03:10 Test 06/29/24 03:10 Range/Units Serum Glucose 78 74-106 mg/dL Problem List Acute CVA. Hypertensive emergency. Questionable coronary artery disease. Moderate pericardial effusion. Acute hypoxic respiratory failure. End-stage renal disease on hemodialysis. History of T12 compression fracture. Assessment/Plan Continued all current supportive medical care. Amlodipine, Clonidine. IV antibiotics as ordered. IV Hydralazine for SBP >160. Metoprolol. Morphine for pain management. GI prophylactics. Additional plan as per the hospital course. Critical care time of 45 minutes provided to include time spent evaluation of patient at bedside, when appropriate patient/family education for diagnosis, treatment plan, review of pertinent medical information and discussion of care with specialty providers and PCP. Dietary Evaluation Review Comments: 1) If patient remains NPO > 7 days, consider EN/TPN to meet at least 75% estimated needs 2) If GI route is preferred, consider Nepro @ 25 mL/hr goal rate as tolerated. EN regimen will provide 1080 kcals, 49g Pro, and 447 mL free H2O per 24 hrs. EN regimen will meet ~90% estimated daily energy needs and ~47% estimated daily protein needs 3) Initiate Nephro-Susan @ 1 tb qd 4) Advance to 60g CCHO renal standard diet when medically feasible, pending [facility] approval 5) Follow-up with nephrology, cardiology, and pulmonology 6) Continue to monitor I&O, labs, and skin integrity Expected Outcomes/Goals: 1) patient to receive nutrition support within 7 days of NPO status 2) labs to improve 3) wound to improve 4) patient to be extubated and diet to advance 5) f/u in 2-3 days Plan discussed with: Patient SHAUN RAMOS MD June 29, 2024 15:17
--- NOTE | 2024-06-29 23:16 | DVHPN2 ---
Progress Note - Dictate Date Seen: June 29, 2024 Medical Necessity Reason Pt with a Central, PICC or Fol: Yes The following are medically ne: Eagle Catheter Reason for eagle catheter: Strict I&O Subjective Patient seen and examined at bedside. On supplemental oxygen Overnight events reviewed. vital signs Vital Sign Date Time Temp Pulse Resp B/P (MAP) Pulse Ox O2 Delivery O2 Flow Rate FiO2 06/29/24 22:09 81 18 100 06/29/24 22:01 167/72 (103) 06/29/24 22:00 Oxymizer 4 N/A 06/29/24 16:00 98.6 98.6 Total Intake and Output 06/28/24 06/28/24 06/29/24 15:00 23:00 07:00 Intake Total 50 ml 150 ml 180 ml Output Total 0 ml Balance 50 ml 150 ml 180 ml medications Current Medications Medications Dose Ordered Sig/Eric Route Start Time Stop Time Status Last Admin Dose Admin Ondansetron HCl 4 mg Q4HP PRN IV 06/11/24 02:00 Nitroglycerin 0.4 mg Q5MINP PRN SL 06/11/24 02:00 Albuterol 2.5 mg Q4HPRN PRN NEB 06/11/24 02:00 06/29/24 21:59 2.5 MG Ipratropium [place] 0.5 mg Q4HPRN PRN NEB 06/11/24 02:00 06/29/24 21:59 0.5 MG Ceftriaxone Sodium 50 ml @ 100 mls/hr DAILY@09 IV 06/13/24 09:00 06/29/24 12:12 100 MLS/HR Acetaminophen 650 mg Q6HP PRN GT 06/11/24 23:45 06/12/24 02:48 650 MG Nicardipine HCl 250 ml @ 50 mls/hr Q5H IV 06/13/24 14:45 UNV Hydralazine HCl 10 mg Q6HPRN PRN IV 06/17/24 00:00 06/29/24 15:37 10 MG Diagnostic Test (Pha) 1 strip Q6HR 06/20/24 00:00 06/29/24 18:14 1 STRIP Insulin Human Regular Q6HR SC 06/20/24 00:00 06/28/24 11:20 2 UNITS Dextrose 50 ml UD PRN IV 06/19/24 18:15 Dopamine HCl/ Dextrose 250 ml @ 15.544 mls/ hr Q16H5M IV 06/21/24 11:00 UNV Metoprolol Tartrate 50 mg BID PO 06/23/24 22:00 06/29/24 21:40 50 MG Amlodipine Besylate 10 mg DAILY PO 06/24/24 10:00 06/29/24 12:22 10 MG Vancomycin HCl 0 ml @ 0 mls/hr UD IV 06/23/24 20:45 Clonidine HCl 0.2 mg Q7D TD 06/25/24 14:30 06/25/24 16:35 0.2 MG Famotidine 10 mg EOD PO 06/27/24 10:00 06/29/24 12:22 10 MG Heparin Sodium (Porcine) 2,300 units AMANDA PRN IV 06/26/24 15:30 Cancel Acetaminophen/ Hydrocodone Bitart 1 tab Q6HPRN PRN PO 06/26/24 22:30 06/27/24 07:02 1 TAB Morphine Sulfate 2 mg Q4HPRN PRN IV 06/27/24 00:45 06/27/24 05:51 2 MG Nifedipine 90 mg DAILY PO 06/28/24 10:00 06/29/24 13:00 90 MG Fluconazole 100 mg HS PO 06/27/24 22:00 06/29/24 21:39 100 MG objective Gen.: Patient lying in bed in no apparent distress. On supplemental oxygen Head: Normocephalic, atraumatic. Eyes: EOMI/PERRLA. Ears: Normal hearing. Normal anatomy. Neck/trachea: Trachea midline, supple. Nose: Normal external anatomy. Mouth: Moist mucous membranes. Chest: Decreased air entry bilaterally. No wheezing or rhonchi. Cardiovascular: Positive S1, positive S2. Regular rate and rhythm. Abdomen: Positive bowel sounds in all 4 quadrants. Soft, non-tender, non- distended. : Deferred. Rectal: Deferred. Skin: Warm, dry. Intact. Extremities: 2+ radial pulses bilaterally. No lower extremity edema. Neuro: Awake, alert, oriented x3. No gross motor or sensory deficits. Cranial nerves II through XII intact. Gait not assessed laboratory and microbiology Laboratory Tests 06/29/24 03:10 Test 06/29/24 03:10 Range/Units Serum Glucose 78 74-106 mg/dL Assessment/Plan Impression: Acute hypoxic respiratory failure Acute CVA Acute encephalopathy ESRD, on hemodialysis Pulmonary edema Shock Obesity BMI 33.3 Events: Remains on supplemental oxygen On 4 LPM Oxymizer Taper O2 as tolerated Patient is groggy CT head reveals no acute intracranial abnormalities ABG reviewed. Head of bed elevation Aspiration precautions Incentive spirometry Continue antibiotics Continue bronchodilators Pepcid for GI prophylaxis Monitor hemoglobin HD per Nephrology - hemodialysis this PM Monitor renal function Monitor electrolytes. Supplement as necessary. Monitor ins and outs. Off gabapentin Monitor respiratory status closely Labs and imaging reviewed Plan: S/p extubation Supplemental oxygen Titrate to keep O2 sats above 92%. Monitor blood pressure Continue antibiotics. F/u cultures. Continue bronchodilators Accu-Cheks, ISS Echo reviewed Cardiology recs appreciated Pressors as necessary for hemodynamic support Titrate to keep mean arterial pressure greater than 65 mmHg. HD per Nephrology Monitor renal function Monitor electrolytes. Supplement as necessary. Monitor ins and outs. Maintain euvolemia. GI prophylaxis. DVT prophylaxis. Prognosis: Poor given patient's multiple co-morbidities. Condition: Critical Rest of plan per hospitalist and other consultants. A total of 35 minutes of critical care time was spent reviewing the patient record, examining the patient, making a diagnostic and therapeutic plan, discussing this plan with the medical personnel, following up on diagnostic studies and following the patient for clinical stability excluding any and all procedures. At least 50% of this time was spent in direct, [id number] contact. Thank you, LISA Garcia, for allowing me to participate in this patient's care. Further recommendations will depend on the patient's clinical course. Please do not hesitate to contact me if you have any questions or concerns. This medical document was created using an electronic medical record system with [employer] dictation system. Although these documentations are being carefully reviewed, there may still be some phonetic and typographical changes. The errors are purely typographical, due to imperfection on the software program, and do not reflect any compromise in the patient's medical care. Dietary Evaluation Review Comments: 1) If patient remains NPO > 7 days, consider EN/TPN to meet at least 75% estimated needs 2) If GI route is preferred, consider Nepro @ 25 mL/hr goal rate as tolerated. EN regimen will provide 1080 kcals, 49g Pro, and 447 mL free H2O per 24 hrs. EN regimen will meet ~90% estimated daily energy needs and ~47% estimated daily protein needs 3) Initiate Nephro-Susan @ 1 tb qd 4) Advance to 60g CCHO renal standard diet when medically feasible, pending [employer] approval 5) Follow-up with nephrology, cardiology, and pulmonology 6) Continue to monitor I&O, labs, and skin integrity Expected Outcomes/Goals: 1) patient to receive nutrition support within 7 days of NPO status 2) labs to improve 3) wound to improve 4) patient to be extubated and diet to advance 5) f/u in 2-3 days Plan discussed with: Other (RN Althea) Critical Care Time(min): 35 NAE BELLAMY MD June 29, 2024 23:15
[2024-06-30] VITALS (44 sets, daily range): BP systolic 132–169; BP diastolic 48–95; PULSE 60–90; RESP 12–25; TEMP 98.2–98.4; O2SAT 92–100
[2024-06-30 03:32] LABS: Basophils # (auto) 0 10 ^3/uL (0-0.2); Basophils % (auto) 0.3 % (0.0-2.0); Eosinophils # (auto) 0 10 ^3/uL (0-0.8); Eosinophils % (auto) 1.6 % (0.0-7.0); Hematocrit 25.6 % (36.0-46.0); Hemoglobin 8.6 g/dL (12.2-16.2); Lymphocytes # (auto) 0.3 10 ^3/uL (0.4-5.4); Lymphocytes % (auto) 11.6 % (10.0-50.0); Mean Corpuscular Hemoglobin 30.2 pg (28.0-32.0); Mean Corpuscular Hgb Conc. 33.7 g/dL (32.0-36.0); Mean Corpuscular Volume 89.6 fL (80.0-100.0); Monocytes # (auto) 0.3 10 ^3/uL (0-1.3); Monocytes % (auto) 8.5 % (0.0-12.0); Neutrophils # (auto) 2.3 10 ^3/uL (1.6-8.6); Nucleated Red Blood Cells % 0.1 %; Platelet Count (auto) 136 10^3/uL (140-450); Red Blood Cells 2.85 10^6/uL (4.0-5.20); Red Cell Distribution Width 17.8 % (11.8-14.3)
[2024-06-30 04:03] LABS: Alanine Aminotransferase 11 U/L (7-40); Albumin 3.4 g/dL (3.2-4.8); Alkaline Phosphatase 84 U/L (46-116); Anion Gap 8 (5-15); Aspartate Aminotransferase 13 U/L (13-40); BUN/Creatinine Ratio 5.6 (10.0-20.0); Blood Urea Nitrogen 18 mg/dL (9-23); Calcium 8.8 mg/dL (8.7-10.4); Chloride 101 mmol/L (98-107); Glucose 89 mg/dL (74-106); Potassium 3.8 mmol/L (3.5-5.1); Sodium 141 mmol/L (136-145)
[2024-06-30 04:04] LABS: Bilirubin, Total 0.5 mg/dL (0.2-1.0)
[2024-06-30 04:05] LABS: Carbon Dioxide 32 mmol/L (20-31); Total Protein 5.5 g/dL (5.7-8.2)
--- NOTE | 2024-06-30 05:12 | DVH ---
EXAM: XR Chest, 1 View CLINICAL INDICATION: FOLLOW UP TECHNIQUE: Frontal view of the chest. COMPARISON: XY CHEST PORTABLE on DOS: 06/26/24, XY CHEST PORTABLE on DOS: 06/25/24, XY CHEST XRAY 1 VIE W on DOS: 06/25/24, XY CHEST PORTABLE on DOS: 06/24/24, XY CHEST PORTABLE on DOS: 06/23/24 FINDINGS: LUNGS AND PLEURAL SPACES: Pulmonary venous congestion. Bilateral pleural effusions. No consolidat ion. No pneumothorax. HEART: Unremarkable. No cardiomegaly. MEDIASTINUM: Unremarkable. Normal mediastinal contour. BONES/JOINTS: Unremarkable. No acute fracture. TUBES, LINES AND DEVICES: Right internal jugular central venous catheter tip in the superior vena c neeta. OTHER FINDINGS: . . IMPRESSION: 1. Pulmonary venous congestion. 2. Bilateral pleural effusions.
--- NOTE | 2024-06-30 07:55 | DVHPN2 ---
Progress Note - Dictate Date Seen: June 30, 2024 Medical Necessity Reason Pt with a Central, PICC or Fol: Yes The following are medically ne: Eagle Catheter Reason for eagle catheter: Strict I&O Subjective On mechanical ventilation vital signs Vital Sign Date Time Temp Pulse Resp B/P (MAP) Pulse Ox O2 Delivery O2 Flow Rate FiO2 06/30/24 06:30 65 19 149/60 (89) 95 06/30/24 06:10 Oxymizer 5 N/A 06/30/24 04:00 98.4 98.4 Total Intake and Output 06/29/24 06/29/24 06/30/24 15:00 23:00 07:00 Intake Total 100 ml 500 ml 240 ml Output Total 0 ml 0 ml Balance 100 ml 500 ml 240 ml medications Current Medications Medications Dose Ordered Sig/Eric Route Start Time Stop Time Status Last Admin Dose Admin Ondansetron HCl 4 mg Q4HP PRN IV 06/11/24 02:00 Nitroglycerin 0.4 mg Q5MINP PRN SL 06/11/24 02:00 Albuterol 2.5 mg Q4HPRN PRN NEB 06/11/24 02:00 06/29/24 21:59 2.5 MG Ipratropium [place] 0.5 mg Q4HPRN PRN NEB 06/11/24 02:00 06/29/24 21:59 0.5 MG Ceftriaxone Sodium 50 ml @ 100 mls/hr DAILY@09 IV 06/13/24 09:00 06/29/24 12:12 100 MLS/HR Acetaminophen 650 mg Q6HP PRN GT 06/11/24 23:45 06/12/24 02:48 650 MG Nicardipine HCl 250 ml @ 50 mls/hr Q5H IV 06/13/24 14:45 UNV Hydralazine HCl 10 mg Q6HPRN PRN IV 06/17/24 00:00 06/29/24 15:37 10 MG Diagnostic Test (Pha) 1 strip Q6HR 06/20/24 00:00 06/30/24 07:37 1 STRIP Insulin Human Regular Q6HR SC 06/20/24 00:00 06/28/24 11:20 2 UNITS Dextrose 50 ml UD PRN IV 06/19/24 18:15 Dopamine HCl/ Dextrose 250 ml @ 15.544 mls/ hr Q16H5M IV 06/21/24 11:00 UNV Metoprolol Tartrate 50 mg BID PO 06/23/24 22:00 06/29/24 21:40 50 MG Amlodipine Besylate 10 mg DAILY PO 06/24/24 10:00 06/29/24 12:22 10 MG Vancomycin HCl 0 ml @ 0 mls/hr UD IV 06/23/24 20:45 Clonidine HCl 0.2 mg Q7D TD 06/25/24 14:30 06/25/24 16:35 0.2 MG Famotidine 10 mg EOD PO 06/27/24 10:00 06/29/24 12:22 10 MG Heparin Sodium (Porcine) 2,300 units AMANDA PRN IV 06/26/24 15:30 Cancel Acetaminophen/ Hydrocodone Bitart 1 tab Q6HPRN PRN PO 06/26/24 22:30 06/27/24 07:02 1 TAB Morphine Sulfate 2 mg Q4HPRN PRN IV 06/27/24 00:45 06/27/24 05:51 2 MG Nifedipine 90 mg DAILY PO 06/28/24 10:00 06/29/24 13:00 90 MG Fluconazole 100 mg HS PO 06/27/24 22:00 06/29/24 21:39 100 MG objective On mechanical ventilation Lungs Diminished air entry at bases CV:: RR, no pericardial rub Abdomen: soft, mildly distended, low BS Trace edema of legs laboratory and microbiology Laboratory Tests 06/30/24 03:05 Test 06/30/24 03:05 Range/Units Serum Glucose 89 74-106 mg/dL Problem List End-stage renal disease on HD Anemia of renal disease. Pneumonia Acute hypoxic Respiratory failure, s/p extubation Subacute stroke. T-spine fracture Plan: HD tomorrow TTS Fluid restriction less than 1 L per day On metoprolol and amlodipine Continue IV antibiotics ANANTH post HD as needed, goal Hb: 10-11 g/dl Dietary Evaluation Review Comments: 1) If patient remains NPO > 7 days, consider EN/TPN to meet at least 75% estimated needs 2) If GI route is preferred, consider Nepro @ 25 mL/hr goal rate as tolerated. EN regimen will provide 1080 kcals, 49g Pro, and 447 mL free H2O per 24 hrs. EN regimen will meet ~90% estimated daily energy needs and ~47% estimated daily protein needs 3) Initiate Nephro-Susan @ 1 tb qd 4) [facility] diet when medically feasible, pending [facility] approval 5) Follow-up with nephrology, cardiology, and pulmonology 6) Continue to monitor I&O, labs, and skin integrity Expected Outcomes/Goals: 1) patient to receive nutrition support within 7 days of NPO status 2) labs to improve 3) wound to improve 4) patient to be extubated and diet to advance 5) f/u in 2-3 days Plan discussed with: Other STEFANIE SAMUEL MD June 30, 2024 07:55
--- NOTE | 2024-06-30 11:10 | DVHPN2 ---
Progress Note - Dictate Date Seen: June 30, 2024 Medical Necessity Reason Pt with a Central, PICC or Fol: Yes The following are medically ne: Eagle Catheter Reason for eagle catheter: Strict I&O Subjective Ms. Dawkins is a 63 years old female with a history of chronic kidney failure on hemodialysis, recent spine fracture, she came to the [facility] on 06/10/2024 with a chief complaint of back pain. I have seen and examined the patient, I have discussed with her nurse, she was mentally and physically much better, she was oriented to person, place, she knows year, good social skills Blood culture, 06/11/2024: Urinalysis, 06/11/2024: Negative Plasma alcohol, 06/10/2024: <3 ABG, 06/08/2024: Respiratory alkalosis WBC/HB/PLT/MCV, 06/11/2024: 1.7/10.5/114/89.3, 06/15/2024: 2.2/9.7/124/87.7, 06/16/2024: 0.5/10.3/136/86.5, 06/17/2024: 7.2/9.9/152/87.3 Na, 06/10/2024: 136, 06/12/2024: 133, 06/14/2024: 125, 06/15/24: 130 BUN/CR, 05/2624: 47/7.51, 06/15/2024: 31/5.74 HGB A1c, 06/11/2024: 4.3 Liver function tests, 06/10/2024: Unremarkable TG/HDL/LDL/HDL, 06/11/2024: 63/106/47/40 Echocardiogram, 06/11/2024: LVEF is normal 50-55% Rv function normal Moderate pericardial effusion with no evidence of tamponade Large left pleural effusion Chest x-ray, 06/11/2024: Lines and tubes in satisfactory position. No significant interval change Chest x-ray, 06/15/2024: 1. Mild diffuse increased prominence of the pulmonary vasculature. 2. Lines and tubes unchanged CT head, 06/10/2024: Subacute stroke involving the left frontal lobe white matter which also may involve the left temporal lobe as well can not rule out acute features CT head 06/21/24: 1. No acute intracranial hemorrhage 2. Stable left parietal infarct unchanged from 06/10/2024. CT head, 06/28/2024: 1. No acute intracranial hemorrhage. 2. Stable infarct on the left in the frontal parietal lobe. 3. No new areas of ischemia. CT T-spine, 06/10/2024: No evidence of fracture in the thoracic spine CT lumbar spine, 06/10/2024: No acute fracture. Grade 1 anterolisthesis at L4-L5 with bilateral pars defects. Moderate to severe endplate degenerative changes at L4-L5, T12-L1, and L5-S1. There is severe spinal canal narrowing at L4-L5. Partially visualized moderate bilateral pleural effusions. Mild diffuse anasarca CTA head, neck, 06/10/2024: No significant vascular stenosis involving the head / neck. Moderate occlusion of the bilateral V4 segments vertebral arteries due to calcified and noncalcified plaques MRI head, 06/12/2024: 1. There is no acute intracranial process. 2. Chronic infarct in the superolateral left frontal lobe. (I saw another possible chronic stroke: Images 16) MRI lumbar spine, 06/19/2024: Severe spinal canal stenosis with severe bilateral lateral recess narrowing at L3-L4. Severe bilateral neural foramina stenosis at L3-L4 with moderate right and severe left-sided neural foramina stenosis at L4- L5. Grade 1 anterolisthesis of L4 on L5. vital signs Vital Sign Date Time Temp Pulse Resp B/P (MAP) Pulse Ox O2 Delivery O2 Flow Rate FiO2 06/30/24 10:11 91 160/61 06/30/24 10:00 22 98 Oxymizer 4 N/A 06/30/24 08:00 98.2 98.2 Total Intake and Output 06/29/24 06/29/24 06/30/24 15:00 23:00 07:00 Intake Total 100 ml 500 ml 240 ml Output Total 0 ml 0 ml Balance 100 ml 500 ml 240 ml medications Current Medications Medications Dose Ordered Sig/Eric Route Start Time Stop Time Status Last Admin Dose Admin Ondansetron HCl 4 mg Q4HP PRN IV 06/11/24 02:00 Nitroglycerin 0.4 mg Q5MINP PRN SL 06/11/24 02:00 Albuterol 2.5 mg Q4HPRN PRN NEB 06/11/24 02:00 06/29/24 21:59 2.5 MG Ipratropium [place] 0.5 mg Q4HPRN PRN NEB 06/11/24 02:00 06/29/24 21:59 0.5 MG Ceftriaxone Sodium 50 ml @ 100 mls/hr DAILY@09 IV 06/13/24 09:00 06/30/24 09:12 100 MLS/HR Acetaminophen 650 mg Q6HP PRN GT 06/11/24 23:45 06/12/24 02:48 650 MG Nicardipine HCl 250 ml @ 50 mls/hr Q5H IV 06/13/24 14:45 UNV Hydralazine HCl 10 mg Q6HPRN PRN IV 06/17/24 00:00 06/29/24 15:37 10 MG Diagnostic Test (Pha) 1 strip Q6HR 06/20/24 00:00 06/30/24 07:37 1 STRIP Insulin Human Regular Q6HR SC 06/20/24 00:00 06/28/24 11:20 2 UNITS Dextrose 50 ml UD PRN IV 06/19/24 18:15 Dopamine HCl/ Dextrose 250 ml @ 15.544 mls/ hr Q16H5M IV 06/21/24 11:00 UNV Metoprolol Tartrate 50 mg BID PO 06/23/24 22:00 06/30/24 09:13 50 MG Amlodipine Besylate 10 mg DAILY PO 06/24/24 10:00 06/30/24 09:14 10 MG Vancomycin HCl 0 ml @ 0 mls/hr UD IV 06/23/24 20:45 Clonidine HCl 0.2 mg Q7D TD 06/25/24 14:30 06/25/24 16:35 0.2 MG Famotidine 10 mg EOD PO 06/27/24 10:00 06/29/24 12:22 10 MG Heparin Sodium (Porcine) 2,300 units AMANDA PRN IV 06/26/24 15:30 Cancel Acetaminophen/ Hydrocodone Bitart 1 tab Q6HPRN PRN PO 06/26/24 22:30 06/27/24 07:02 1 TAB Morphine Sulfate 2 mg Q4HPRN PRN IV 06/27/24 00:45 06/27/24 05:51 2 MG Nifedipine 90 mg DAILY PO 06/28/24 10:00 06/30/24 09:18 90 MG Fluconazole 100 mg HS PO 06/27/24 22:00 06/29/24 21:39 100 MG objective The patient is well-nourished and well-developed with no distress. MENTAL STATUS: Subjective CRANIAL NERVES: Pupils are equal round and reactive to light briskly, normal external eye movement, normal sensation and motor examination in the lateral trigeminal nerve distribution, no facial weakness. SENSATION: Okay to light touch and pinprick MOTOR: Normal tone in the upper and lower extremity. Normal muscle bulk. No fasciculations. She moves the arms and legs REFLEXES: Deep tendon reflexes are symmetrical. No pathological reflexes. CEREBELLAR/COORDINATION: Deferred GAIT/STATION: deferred. No tenderness in the back to palpation laboratory and microbiology Laboratory Tests 06/30/24 03:05 Test 06/30/24 03:05 Range/Units Serum Glucose 89 74-106 mg/dL Problem List 2 chronic strokes in the left hemisphere per MRI and CT scan, asymptomatic Acute low back pain to rule out diskitis Acute respiratory failure Pancytopenia, better Hyponatremia Hypokalemia Chronic kidney failure Anisocoria noticed on 06/18/2024, uncertain clinical significance ? Back pain Assessment/Plan Monitoring Supportive treatment ICU care IV antibiotics Discontinue gabapentin and baclofen, consider resume as indicated Aspirin 81 mg daily Lipitor 40 mg daily DVT prophylaxis GI prophylaxis Consult hematology Infectious disease on case Cardiology on case Pulmonary on case Nephrology on case More recommendation per clinical course This medical document was created using an electronic medical record system with [employer] computerized dictation system. Although this document has been carefully reviewed, there may still be some phonetic and typographical errors. These areas are purely typographical due to imperfections of the software programs, and do not reflect any compromise in the patient's medical care Dietary Evaluation Review Comments: 1) If patient remains NPO > 7 days, consider EN/TPN to meet at least 75% estimated needs 2) If GI route is preferred, consider Nepro @ 25 mL/hr goal rate as tolerated. EN regimen will provide 1080 kcals, 49g Pro, and 447 mL free H2O per 24 hrs. EN regimen will meet ~90% estimated daily energy needs and ~47% estimated daily protein needs 3) Initiate Nephro-Susan @ 1 tb qd 4) Advance to 60g CCHO renal standard diet when medically feasible, pending [employer] approval 5) Follow-up with nephrology, cardiology, and pulmonology 6) Continue to monitor I&O, labs, and skin integrity Expected Outcomes/Goals: 1) patient to receive nutrition support within 7 days of NPO status 2) labs to improve 3) wound to improve 4) patient to be extubated and diet to advance 5) f/u in 2-3 days Plan discussed with: Patient, Other FORD ORTA MD June 30, 2024 11:10
--- NOTE | 2024-06-30 12:33 | DVHPN2 ---
Progress Note - Dictate Date Seen: June 30, 2024 Medical Necessity Reason Pt with a Central, PICC or Fol: Yes The following are medically ne: Eagle Catheter Reason for eagle catheter: Strict I&O Subjective Patient reports low back discomfort. S/P extubation on 06/25. Currently she is on nasal cannula 4L. vital signs Vital Sign Date Time Temp Pulse Resp B/P (MAP) Pulse Ox O2 Delivery O2 Flow Rate FiO2 06/30/24 12:00 98.3 81 17 164/72 (102) 99 98.3 06/30/24 12:00 Oxymizer 4 N/A Total Intake and Output 06/29/24 06/29/24 06/30/24 15:00 23:00 07:00 Intake Total 100 ml 500 ml 240 ml Output Total 0 ml 0 ml Balance 100 ml 500 ml 240 ml medications Current Medications Medications Dose Ordered Sig/Eric Route Start Time Stop Time Status Last Admin Dose Admin Ondansetron HCl 4 mg Q4HP PRN IV 06/11/24 02:00 Nitroglycerin 0.4 mg Q5MINP PRN SL 06/11/24 02:00 Albuterol 2.5 mg Q4HPRN PRN NEB 06/11/24 02:00 06/29/24 21:59 2.5 MG Ipratropium [place] 0.5 mg Q4HPRN PRN NEB 06/11/24 02:00 06/29/24 21:59 0.5 MG Ceftriaxone Sodium 50 ml @ 100 mls/hr DAILY@09 IV 06/13/24 09:00 06/30/24 09:12 100 MLS/HR Acetaminophen 650 mg Q6HP PRN GT 06/11/24 23:45 06/12/24 02:48 650 MG Nicardipine HCl 250 ml @ 50 mls/hr Q5H IV 06/13/24 14:45 UNV Hydralazine HCl 10 mg Q6HPRN PRN IV 06/17/24 00:00 06/29/24 15:37 10 MG Diagnostic Test (Pha) 1 strip Q6HR 06/20/24 00:00 06/30/24 11:24 1 STRIP Insulin Human Regular Q6HR SC 06/20/24 00:00 06/28/24 11:20 2 UNITS Dextrose 50 ml UD PRN IV 06/19/24 18:15 Dopamine HCl/ Dextrose 250 ml @ 15.544 mls/ hr Q16H5M IV 06/21/24 11:00 UNV Metoprolol Tartrate 50 mg BID PO 06/23/24 22:00 06/30/24 09:13 50 MG Amlodipine Besylate 10 mg DAILY PO 06/24/24 10:00 06/30/24 09:14 10 MG Vancomycin HCl 0 ml @ 0 mls/hr UD IV 06/23/24 20:45 Clonidine HCl 0.2 mg Q7D TD 06/25/24 14:30 06/25/24 16:35 0.2 MG Famotidine 10 mg EOD PO 06/27/24 10:00 06/29/24 12:22 10 MG Heparin Sodium (Porcine) 2,300 units AMANDA PRN IV 06/26/24 15:30 Cancel Acetaminophen/ Hydrocodone Bitart 1 tab Q6HPRN PRN PO 06/26/24 22:30 06/27/24 07:02 1 TAB Morphine Sulfate 2 mg Q4HPRN PRN IV 06/27/24 00:45 06/27/24 05:51 2 MG Nifedipine 90 mg DAILY PO 06/28/24 10:00 06/30/24 09:18 90 MG Fluconazole 100 mg HS PO 06/27/24 22:00 06/29/24 21:39 100 MG objective General Appearance: calm HEENT: normal Respiratory: bilateral good air entry Cardiovascular: Regular rate, Normal S1, Normal S2 Abdominal: Normal bowel sounds, Soft, No tenderness Extremities: Other (BLE pitting edema 2+) Skin: No rashes Neuro: grossly intact laboratory and microbiology Laboratory Tests 06/30/24 03:05 Test 06/30/24 03:05 Range/Units Serum Glucose 89 74-106 mg/dL Assessment/Plan Patient is a 63-year-old female presents to the hospital with: Leucopenia Vertebral Discitis subacute CVA Acute encephalopathy Acute hypoxic respiratory S/P intubation on mechanical ventilator ESRD on HD Fluid overload Hypertensive emergency Hx T12 compression fracture Recommendations: S/P Extubation on 06/25 MRI lumbar spine done 06/19 is wo contrast which is not very ideal for infection. there is no comment about discitis or phlegmon. however, MRI in [facility] on 05/22 commented about discitis. would consider resuming and completing the course for now since she already has been on antibiotics since 05/22. tagged wbc scan may be a better study since she on HD, mri w contrast might be difficult. recommend 6 weeks of IV Vancomycin/ Ceftriaxone from 06/11. closely monitor cbc follow up out pt with Dr Carlisle. reviewed [facility] records in detail: She had low wbc from 03/23/2024 with 3.4 with intermittent 1.8 and she has been admitted 2-3 times and wbc is in same range. no work up done She had mri spine with on 05/22 shows hypointense T1 and hyperintense T2 at L3-L4 concerning for discitis osteomyelitis. Hyperintense T2 signal along epidural space L3-L4 for 5mm AP diameter concerning for Phlegmon. ID Dr Carlisle saw the patient and recommended IV Vancomycin for 6 weeks. There is no positive blood cultures or biopsy done. His notes on 05/23 recommended 6 weeks of IV vancomycin ( switched from ceftriaxone for low wbc). since leucopenia was present in prior admissions too, its unlikely due to Vancomycin discussed with nephrology, reviewed old labs, back in 2022 also her wbc was in 3k. unsure if she had work up done platelets were in 200 in 2023 but later its been low too MRI showed Severe spinal canal stenosis with severe bilateral lateral recess narrowing at L3-L4. Severe bilateral neural foramina stenosis at L3-L4 with moderate right and severe left-sided neural foramina stenosis at L4-L5. Grade 1 anterolisthesis of L4 on L5. 06/29, Vancomycin Random is 15.3 Antibiotic status: Ceftriaxone IV [Started on 06/11 - Ongoing] Vancomycin IV [Restarted on 06/23 - Ongoing] Prognosis guarded due multiple co morbidities Discussed with Dr Mccollum Thank you for consult. Dietary Evaluation Review Comments: 1) If patient remains NPO > 7 days, consider EN/TPN to meet at least 75% estimated needs 2) If GI route is preferred, consider Nepro @ 25 mL/hr goal rate as tolerated. EN regimen will provide 1080 kcals, 49g Pro, and 447 mL free H2O per 24 hrs. EN regimen will meet ~90% estimated daily energy needs and ~47% estimated daily protein needs 3) Initiate Nephro-Susan @ 1 tb qd 4) Advance to 60g [facility] renal standard diet when medically feasible, pending [facility] approval 5) Follow-up with nephrology, cardiology, and pulmonology 6) Continue to monitor I&O, labs, and skin integrity Expected Outcomes/Goals: 1) patient to receive nutrition support within 7 days of NPO status 2) labs to improve 3) wound to improve 4) patient to be extubated and diet to advance 5) f/u in 2-3 days Plan discussed with: GONZÁLEZ Vidal MD June 30, 2024 12:33
--- NOTE | 2024-06-30 16:40 | DVHPN2 ---
Subjective Patient's extubated on 06/25, currently on nasal Oxymizer, more awake alert today after be discontinued the gabapentin and baclofen. Reviewed: Care Plan Changes from previous H/P or p: No Changes Objective Vitals Vital Signs Date Time Temp Pulse Resp B/P (MAP) Pulse Ox O2 Delivery O2 Flow Rate FiO2 06/30/24 16:00 82 06/30/24 16:00 16 97 Oxymizer 4 N/A 06/30/24 16:00 98.2 148/56 (86) 98.2 Intake/Output Intake and Output 06/30/24 07:00 Intake Total 840 ml Output Total 0 ml Balance 840 ml Intake Oral 640 ml IV Total 200 ml Output Urine Total 0 ml Stool Total 0 ml Exam HEENT pupils are reactive , brisk reaction somewhat unequal. 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 no edema [facility] extubated following commands Medications Current Medications Medications Dose Ordered Sig/Eric Route Start Time Stop Time Status Last Admin Dose Admin Ondansetron HCl 4 mg Q4HP PRN IV 06/11/24 02:00 Nitroglycerin 0.4 mg Q5MINP PRN SL 06/11/24 02:00 Albuterol 2.5 mg Q4HPRN PRN NEB 06/11/24 02:00 06/29/24 21:59 2.5 MG Ipratropium [place] 0.5 mg Q4HPRN PRN NEB 06/11/24 02:00 06/29/24 21:59 0.5 MG Ceftriaxone Sodium 50 ml @ 100 mls/hr DAILY@09 IV 06/13/24 09:00 06/30/24 09:12 100 MLS/HR Acetaminophen 650 mg Q6HP PRN GT 06/11/24 23:45 06/12/24 02:48 650 MG Nicardipine HCl 250 ml @ 50 mls/hr Q5H IV 06/13/24 14:45 UNV Hydralazine HCl 10 mg Q6HPRN PRN IV 06/17/24 00:00 06/29/24 15:37 10 MG Diagnostic Test (Pha) 1 strip Q6HR 06/20/24 00:00 06/30/24 11:24 1 STRIP Insulin Human Regular Q6HR SC 06/20/24 00:00 06/28/24 11:20 2 UNITS Dextrose 50 ml UD PRN IV 06/19/24 18:15 Dopamine HCl/ Dextrose 250 ml @ 15.544 mls/ hr Q16H5M IV 06/21/24 11:00 UNV Metoprolol Tartrate 50 mg BID PO 06/23/24 22:00 06/30/24 09:13 50 MG Amlodipine Besylate 10 mg DAILY PO 06/24/24 10:00 06/30/24 09:14 10 MG Vancomycin HCl 0 ml @ 0 mls/hr UD IV 06/23/24 20:45 Clonidine HCl 0.2 mg Q7D TD 06/25/24 14:30 06/25/24 16:35 0.2 MG Famotidine 10 mg EOD PO 06/27/24 10:00 06/29/24 12:22 10 MG Heparin Sodium (Porcine) 2,300 units AMANDA PRN IV 06/26/24 15:30 Cancel Acetaminophen/ Hydrocodone Bitart 1 tab Q6HPRN PRN PO 06/26/24 22:30 06/27/24 07:02 1 TAB Morphine Sulfate 2 mg Q4HPRN PRN IV 06/27/24 00:45 06/27/24 05:51 2 MG Nifedipine 90 mg DAILY PO 06/28/24 10:00 06/30/24 09:18 90 MG Fluconazole 100 mg HS PO 06/27/24 22:00 06/29/24 21:39 100 MG Laboratory Results Laboratory Tests 06/30/24 03:05 Chemistry Test 06/30/24 03:05 Albumin 3.4 g/dL (3.2-4.8) Calcium Level 8.8 mg/dL (8.7-10.4) Total Protein 5.5 g/dL (5.7-8.2) L LFT Test 06/30/24 03:05 Alanine Aminotransferase (ALT) 11 U/L (7-40) Alkaline Phosphatase 84 U/L (46-116) Aspartate Amino Transferase (AST) 13 U/L (13-40) Total Bilirubin 0.5 mg/dL (0.2-1.0) Urinalysis Test 06/11/24 03:00 Urine Color Light-yellow (Yellow) Urine Clarity Turbid (Clear) H Urine pH 8.0 (5.0-9.0) Urine Specific [place] 1.008 (1.001-1.035) Urine Protein 3+ (Negative) H Urine Ketones Negative (Negative) Urine Blood Negative /uL (Negative) Urine Nitrite Negative (Negative) Urine Bilirubin Negative (Negative) Urine Urobilinogen Normal mg/dL (Negative) Urine Leukocyte Esterase 1+ /uL (Negative) Urine RBC 10 /hpf (0 - 4) Urine Microscopic WBC 41 /HPF (0-5) H Urine Squamous Epithelial Cells Mod /hpf (<5) Urine Bacteria None seen /hpf (None Seen) Urine Glucose 2+ mg/dL (Normal) H Microbiology Microbiology Date/Time Source Procedure Growth Status 06/13/24 08:45 Nose MRSA Screen - Final Complete 06/11/24 23:55 Blood Blood Culture - Final NO GROWTH AFTER 5 DAYS OF INCUBATION. Complete Assessment/Plan Assessment/Plan 63-year-old female with a known history of hypertension, dyslipidemia, coronary artery disease, anxiety disorder, recent mechanical fall found to have acute small T12 compression fracture, L3-4 lumbar diskitis presented to the hospital with right-sided weakness altered mental status eventually intubated in the ER for airway protection. Patient was found to have acute/subacute left frontal and temporal infarct currently MRI brain is pending. 1. Acute hypoxic respiratory failure requiring intubation with mechanical ventilation secondary to metabolic encephalopathy , extubated on 06/25 2. Metabolic encephalopathy ruled in acute CVA 3.Subacute CVA with the left frontal and temporal infarct, MRI brain shows no evidence of acute infarct 4. Hypertensive emergency with the end-organ involvement , off the nicardipine drip 5. End-stage renal disease on hemodialysis received hemodialysis 6. Coronary artery disease 7. L3-4 lumbar diskitis/osteomyelitis, resume IV vancomycin and consult infectious disease specialist 8. Physical deconditioning 9. Anisocoria, repeat head CT shows no evidence of any acute pathology besides old left frontal /parietal infarct -discontinue gabapentin and baclofen. Continue O2 supplementation -physical therapy evaluation and treatment, diet as tolerated, can downgraded to telemetry with a sitter. Plan discussed with: Patient My Orders Orders - BENJA ROBBINS MD Procedure Category Date Status Time Chest Portable XY 06/30/24 Resulted 04:00 Date of Service: June 30, 2024 Billing Provider: BENJA ROBBINS MD Common Visit Codes: NOT BILLABLE BENJA ROBBINS MD June 30, 2024 16:40
--- NOTE | 2024-06-30 22:45 | DVHPN2 ---
Progress Note - Dictate Date Seen: June 30, 2024 Medical Necessity Reason Pt with a Central, PICC or Fol: Yes The following are medically ne: Eagle Catheter Reason for eagle catheter: Strict I&O Subjective Patient seen and examined at bedside. On supplemental oxygen Overnight events reviewed. vital signs Vital Sign Date Time Temp Pulse Resp B/P (MAP) Pulse Ox O2 Delivery O2 Flow Rate FiO2 06/30/24 22:00 Nasal Cannula* 4 36 06/30/24 21:26 87 133/57 06/30/24 20:00 92 06/30/24 20:00 19 06/30/24 16:00 98.2 98.2 Total Intake and Output 06/29/24 06/29/24 06/30/24 15:00 23:00 07:00 Intake Total 100 ml 500 ml 240 ml Output Total 0 ml 0 ml Balance 100 ml 500 ml 240 ml medications Current Medications Medications Dose Ordered Sig/Eric Route Start Time Stop Time Status Last Admin Dose Admin Ondansetron HCl 4 mg Q4HP PRN IV 06/11/24 02:00 Nitroglycerin 0.4 mg Q5MINP PRN SL 06/11/24 02:00 Albuterol 2.5 mg Q4HPRN PRN NEB 06/11/24 02:00 06/29/24 21:59 2.5 MG Ipratropium [place] 0.5 mg Q4HPRN PRN NEB 06/11/24 02:00 06/29/24 21:59 0.5 MG Ceftriaxone Sodium 50 ml @ 100 mls/hr DAILY@09 IV 06/13/24 09:00 06/30/24 09:12 100 MLS/HR Acetaminophen 650 mg Q6HP PRN GT 06/11/24 23:45 06/12/24 02:48 650 MG Nicardipine HCl 250 ml @ 50 mls/hr Q5H IV 06/13/24 14:45 UNV Hydralazine HCl 10 mg Q6HPRN PRN IV 06/17/24 00:00 06/29/24 15:37 10 MG Dopamine HCl/ Dextrose 250 ml @ 15.544 mls/ hr Q16H5M IV 06/21/24 11:00 UNV Metoprolol Tartrate 50 mg BID PO 06/23/24 22:00 06/30/24 21:26 50 MG Amlodipine Besylate 10 mg DAILY PO 06/24/24 10:00 06/30/24 09:14 10 MG Vancomycin HCl 0 ml @ 0 mls/hr UD IV 06/23/24 20:45 Clonidine HCl 0.2 mg Q7D TD 06/25/24 14:30 06/25/24 16:35 0.2 MG Famotidine 10 mg EOD PO 06/27/24 10:00 06/29/24 12:22 10 MG Heparin Sodium (Porcine) 2,300 units AMANDA PRN IV 06/26/24 15:30 Cancel Acetaminophen/ Hydrocodone Bitart 1 tab Q6HPRN PRN PO 06/26/24 22:30 06/27/24 07:02 1 TAB Morphine Sulfate 2 mg Q4HPRN PRN IV 06/27/24 00:45 06/27/24 05:51 2 MG Nifedipine 90 mg DAILY PO 06/28/24 10:00 06/30/24 09:18 90 MG Fluconazole 100 mg HS PO 06/27/24 22:00 06/30/24 21:25 100 MG objective Gen.: Patient lying in bed in no apparent distress. On supplemental oxygen Head: Normocephalic, atraumatic. Eyes: EOMI/PERRLA. Ears: Normal hearing. Normal anatomy. Neck/trachea: Trachea midline, supple. Nose: Normal external anatomy. Mouth: Moist mucous membranes. Chest: Decreased air entry bilaterally. No wheezing or rhonchi. Cardiovascular: Positive S1, positive S2. Regular rate and rhythm. Abdomen: Positive bowel sounds in all 4 quadrants. Soft, non-tender, non- distended. : Deferred. Rectal: Deferred. Skin: Warm, dry. Intact. Extremities: 2+ radial pulses bilaterally. No lower extremity edema. Neuro: Awake, alert, oriented x3. No gross motor or sensory deficits. Cranial nerves II through XII intact. Gait not assessed laboratory and microbiology Laboratory Tests 06/30/24 03:05 Test 06/30/24 03:05 Range/Units Serum Glucose 89 74-106 mg/dL Assessment/Plan Impression: Acute hypoxic respiratory failure Acute CVA Acute encephalopathy ESRD, on hemodialysis Pulmonary edema Shock Obesity BMI 33.3 Events: Remains on supplemental oxygen On 4 LPM Oxymizer Taper O2 as tolerated Status post hemodialysis - 3 liters removed. Head of bed elevation Aspiration precautions Incentive spirometry Continue antibiotics WBC trending down Monitor hemoglobin HD per Nephrology Monitor renal function Monitor electrolytes. Supplement as necessary. Monitor ins and outs. Off gabapentin Monitor respiratory status closely Labs and imaging reviewed Plan: S/p extubation Supplemental oxygen Titrate to keep O2 sats above 92%. Monitor blood pressure Continue antibiotics. F/u cultures. Bronchodilators PRN Accu-Cheks, ISS Echo reviewed Cardiology recs appreciated Pressors as necessary for hemodynamic support Titrate to keep mean arterial pressure greater than 65 mmHg. HD per Nephrology Monitor renal function Monitor electrolytes. Supplement as necessary. Monitor ins and outs. Maintain euvolemia. GI prophylaxis. DVT prophylaxis. Prognosis: Poor given patient's multiple co-morbidities. Condition: Critical Rest of plan per hospitalist and other consultants. A total of 35 minutes of critical care time was spent reviewing the patient record, examining the patient, making a diagnostic and therapeutic plan, discussing this plan with the medical personnel, following up on diagnostic studies and following the patient for clinical stability excluding any and all procedures. At least 50% of this time was spent in direct, [id number] contact. Thank you, LISA Garcia, for allowing me to participate in this patient's care. Further recommendations will depend on the patient's clinical course. Please do not hesitate to contact me if you have any questions or concerns. This medical document was created using an electronic medical record system with [employer] dictation system. Although these documentations are being carefully reviewed, there may still be some phonetic and typographical changes. The errors are purely typographical, due to imperfection on the software program, and do not reflect any compromise in the patient's medical care. Dietary Evaluation Review Comments: 1) If patient remains NPO > 7 days, consider EN/TPN to meet at least 75% estimated needs 2) If GI route is preferred, consider Nepro @ 25 mL/hr goal rate as tolerated. EN regimen will provide 1080 kcals, 49g Pro, and 447 mL free H2O per 24 hrs. EN regimen will meet ~90% estimated daily energy needs and ~47% estimated daily protein needs 3) Initiate Nephro-Susan @ 1 tb qd 4) Advance to 60g [facility] renal standard diet when medically feasible, pending [employer] approval 5) Follow-up with nephrology, cardiology, and pulmonology 6) Continue to monitor I&O, labs, and skin integrity Expected Outcomes/Goals: 1) patient to receive nutrition support within 7 days of NPO status 2) labs to improve 3) wound to improve 4) patient to be extubated and diet to advance 5) f/u in 2-3 days Plan discussed with: Other (DAVID Gonzalez) Critical Care Time(min): 35 NAE BELLAMY MD June 30, 2024 22:45
--- NOTE | 2024-06-30 23:43 | DVHPN2 ---
Progress Note - Dictate Date Seen: June 30, 2024 Medical Necessity Reason Pt with a Central, PICC or Fol: Yes The following are medically ne: Eagle Catheter Reason for eagle catheter: Strict I&O Subjective Patient was seen and evaluated in follow up in the ICU. Patient is on 4 L Oxymizer. Patient is more awake alert today. She c/o back pain. HGB 8.6, HCT 25.6, CO2 32, Claim Processor 3.20. vital signs Vital Sign Date Time Temp Pulse Resp B/P (MAP) Pulse Ox O2 Delivery O2 Flow Rate FiO2 06/30/24 22:00 Nasal Cannula* 4 36 06/30/24 21:26 87 133/57 06/30/24 20:00 92 06/30/24 20:00 19 06/30/24 16:00 98.2 98.2 Total Intake and Output 06/29/24 06/29/24 06/30/24 15:00 23:00 07:00 Intake Total 100 ml 500 ml 240 ml Output Total 0 ml 0 ml Balance 100 ml 500 ml 240 ml medications Current Medications Medications Dose Ordered Sig/Eric Route Start Time Stop Time Status Last Admin Dose Admin Ondansetron HCl 4 mg Q4HP PRN IV 06/11/24 02:00 Nitroglycerin 0.4 mg Q5MINP PRN SL 06/11/24 02:00 Albuterol 2.5 mg Q4HPRN PRN NEB 06/11/24 02:00 06/29/24 21:59 2.5 MG Ipratropium [place] 0.5 mg Q4HPRN PRN NEB 06/11/24 02:00 06/29/24 21:59 0.5 MG Ceftriaxone Sodium 50 ml @ 100 mls/hr DAILY@09 IV 06/13/24 09:00 06/30/24 09:12 100 MLS/HR Acetaminophen 650 mg Q6HP PRN GT 06/11/24 23:45 06/12/24 02:48 650 MG Nicardipine HCl 250 ml @ 50 mls/hr Q5H IV 06/13/24 14:45 UNV Hydralazine HCl 10 mg Q6HPRN PRN IV 06/17/24 00:00 06/29/24 15:37 10 MG Dopamine HCl/ Dextrose 250 ml @ 15.544 mls/ hr Q16H5M IV 06/21/24 11:00 UNV Metoprolol Tartrate 50 mg BID PO 06/23/24 22:00 06/30/24 21:26 50 MG Amlodipine Besylate 10 mg DAILY PO 06/24/24 10:00 06/30/24 09:14 10 MG Vancomycin HCl 0 ml @ 0 mls/hr UD IV 06/23/24 20:45 Clonidine HCl 0.2 mg Q7D TD 06/25/24 14:30 06/25/24 16:35 0.2 MG Famotidine 10 mg EOD PO 06/27/24 10:00 06/29/24 12:22 10 MG Heparin Sodium (Porcine) 2,300 units AMANDA PRN IV 06/26/24 15:30 Cancel Acetaminophen/ Hydrocodone Bitart 1 tab Q6HPRN PRN PO 06/26/24 22:30 06/27/24 07:02 1 TAB Morphine Sulfate 2 mg Q4HPRN PRN IV 06/27/24 00:45 06/27/24 05:51 2 MG Nifedipine 90 mg DAILY PO 06/28/24 10:00 06/30/24 09:18 90 MG Fluconazole 100 mg HS PO 06/27/24 22:00 06/30/24 21:25 100 MG objective GENERAL: Alert and oriented x 3. No acute distress. EYES: PERRL, EOMI. Anicteric. HENT: Moist mucous membranes. LUNGS: Decreased breath sounds. CARDIOVASCULAR: Regular rate and rhythm. ABDOMEN: Soft, nontender and nondistended. EXTREMITIES: No edema. NEUROLOGIC: No focal neurological deficits. SKIN: Warm, dry. laboratory and microbiology Laboratory Tests 06/30/24 03:05 Test 06/30/24 03:05 Range/Units Serum Glucose 89 74-106 mg/dL Problem List Acute CVA. Hypertensive emergency. Questionable coronary artery disease. Moderate pericardial effusion. Acute hypoxic respiratory failure. End-stage renal disease on hemodialysis. History of T12 compression fracture. Assessment/Plan Continued all current supportive medical care. Morphine and [place] for pain management. Amlodipine, Clonidine. IV antibiotics as ordered. IV Hydralazine for SBP >160. Metoprolol. GI prophylactics. Additional plan as per the hospital course. Critical care time of 45 minutes provided to include time spent evaluation of patient at bedside, when appropriate patient/family education for diagnosis, treatment plan, review of pertinent medical information and discussion of care with specialty providers and PCP. Dietary Evaluation Review Comments: 1) If patient remains NPO > 7 days, consider EN/TPN to meet at least 75% estimated needs 2) If GI route is preferred, consider Nepro @ 25 mL/hr goal rate as tolerated. EN regimen will provide 1080 kcals, 49g Pro, and 447 mL free H2O per 24 hrs. EN regimen will meet ~90% estimated daily energy needs and ~47% estimated daily protein needs 3) Initiate Nephro-Susan @ 1 tb qd 4) Advance to 60g [facility] renal standard diet when medically feasible, pending [employer] approval 5) Follow-up with nephrology, cardiology, and pulmonology 6) Continue to monitor I&O, labs, and skin integrity Expected Outcomes/Goals: 1) patient to receive nutrition support within 7 days of NPO status 2) labs to improve 3) wound to improve 4) patient to be extubated and diet to advance 5) f/u in 2-3 days Plan discussed with: Patient SHAUN RAMOS MD June 30, 2024 23:43
[2024-07-01] VITALS (12 sets, daily range): BP systolic 110–164; BP diastolic 53–75; PULSE 59–92; RESP 17–20; TEMP 97.4–98.2; O2SAT 96–100
--- NOTE | 2024-07-01 10:43 | DVHPN2 ---
Progress Note - Dictate Date Seen: July 01, 2024 Medical Necessity Reason Pt with a Central, PICC or Fol: Yes The following are medically ne: Eagle Catheter Reason for eagle catheter: Strict I&O Subjective Was extubated and transferred out of ICU vital signs Vital Sign Date Time Temp Pulse Resp B/P (MAP) Pulse Ox O2 Delivery O2 Flow Rate FiO2 07/01/24 08:59 98.1 59 20 137/53 (81) 97 98.1 07/01/24 06:31 Nasal Cannula 3.0 07/01/24 06:31 32 Total Intake and Output 06/30/24 06/30/24 07/01/24 15:00 23:00 07:00 Intake Total 50 ml 240 ml Output Total 0 ml Balance 50 ml 240 ml medications Current Medications Medications Dose Ordered Sig/Eric Route Start Time Stop Time Status Last Admin Dose Admin Ondansetron HCl 4 mg Q4HP PRN IV 06/11/24 02:00 Nitroglycerin 0.4 mg Q5MINP PRN SL 06/11/24 02:00 Albuterol 2.5 mg Q4HPRN PRN NEB 06/11/24 02:00 06/29/24 21:59 2.5 MG Ipratropium [place] 0.5 mg Q4HPRN PRN NEB 06/11/24 02:00 06/29/24 21:59 0.5 MG Ceftriaxone Sodium 50 ml @ 100 mls/hr DAILY@09 IV 06/13/24 09:00 07/01/24 09:26 100 MLS/HR Acetaminophen 650 mg Q6HP PRN GT 06/11/24 23:45 06/12/24 02:48 650 MG Nicardipine HCl 250 ml @ 50 mls/hr Q5H IV 06/13/24 14:45 UNV Hydralazine HCl 10 mg Q6HPRN PRN IV 06/17/24 00:00 06/29/24 15:37 10 MG Dopamine HCl/ Dextrose 250 ml @ 15.544 mls/ hr Q16H5M IV 06/21/24 11:00 UNV Metoprolol Tartrate 50 mg BID PO 06/23/24 22:00 06/30/24 21:26 50 MG Amlodipine Besylate 10 mg DAILY PO 06/24/24 10:00 06/30/24 09:14 10 MG Vancomycin HCl 0 ml @ 0 mls/hr UD IV 06/23/24 20:45 Clonidine HCl 0.2 mg Q7D TD 06/25/24 14:30 06/25/24 16:35 0.2 MG Famotidine 10 mg EOD PO 06/27/24 10:00 06/29/24 12:22 10 MG Heparin Sodium (Porcine) 2,300 units AMANDA PRN IV 06/26/24 15:30 Cancel Acetaminophen/ Hydrocodone Bitart 1 tab Q6HPRN PRN PO 06/26/24 22:30 07/01/24 04:54 1 TAB Morphine Sulfate 2 mg Q4HPRN PRN IV 06/27/24 00:45 06/27/24 05:51 2 MG Nifedipine 90 mg DAILY PO 06/28/24 10:00 06/30/24 09:18 90 MG Fluconazole 100 mg HS PO 06/27/24 22:00 06/30/24 21:25 100 MG objective More awake Lungs Diminished air entry at bases CV:: RR, no pericardial rub Abdomen: soft, mildly distended, low BS Trace edema of legs laboratory and microbiology Test 07/01/24 10:18 Range/Units Serum Glucose Pending Problem List End-stage renal disease on HD Anemia of renal disease. Pneumonia Acute hypoxic Respiratory failure, s/p extubation Subacute stroke. T-spine fracture Plan: HD today Fluid restriction less than 1 L per day On metoprolol and amlodipine Continue IV antibiotics ANANTH post HD as needed, goal Hb: 10-11 g/dl Dietary Evaluation Review Comments: 1) If patient remains NPO > 7 days, consider EN/TPN to meet at least 75% estimated needs 2) If GI route is preferred, consider Nepro @ 25 mL/hr goal rate as tolerated. EN regimen will provide 1080 kcals, 49g Pro, and 447 mL free H2O per 24 hrs. EN regimen will meet ~90% estimated daily energy needs and ~47% estimated daily protein needs 3) Initiate Nephro-Susan @ 1 tb qd 4) Advance to 60g CCHO renal standard diet when medically feasible, pending [employer] approval 5) Follow-up with nephrology, cardiology, and pulmonology 6) Continue to monitor I&O, labs, and skin integrity Expected Outcomes/Goals: 1) patient to receive nutrition support within 7 days of NPO status 2) labs to improve 3) wound to improve 4) patient to be extubated and diet to advance 5) f/u in 2-3 days Plan discussed with: Other STEFANIE SAMUEL MD July 01, 2024 10:43
[2024-07-01 10:53] LABS: Chloride 102 mmol/L (98-107); Sodium 141 mmol/L (136-145)
[2024-07-01 10:54] LABS: Anion Gap 8 (5-15); Calcium 9.8 mg/dL (8.7-10.4); Carbon Dioxide 31 mmol/L (20-31)
[2024-07-01 10:59] LABS: BUN/Creatinine Ratio 5.8 (10.0-20.0); Glucose 92 mg/dL (74-106)
[2024-07-01 11:00] LABS: Blood Urea Nitrogen 29 mg/dL (9-23)
[2024-07-01 11:05] LABS: Basophils # (auto) 0 10 ^3/uL (0-0.2); Basophils % (auto) 0.5 % (0.0-2.0); Eosinophils # (auto) 0.1 10 ^3/uL (0-0.8); Eosinophils % (auto) 3.7 % (0.0-7.0); Hematocrit 23.7 % (36.0-46.0); Lymphocytes # (auto) 0.6 10 ^3/uL (0.4-5.4); Lymphocytes % (auto) 19.2 % (10.0-50.0); Mean Corpuscular Hemoglobin 30.3 pg (28.0-32.0); Mean Corpuscular Hgb Conc. 33.9 g/dL (32.0-36.0); Mean Corpuscular Volume 89.5 fL (80.0-100.0); Monocytes # (auto) 0.3 10 ^3/uL (0-1.3); Monocytes % (auto) 9.8 % (0.0-12.0); Neutrophils % (auto) 66.8 % (37.0-80.0); Nucleated Red Blood Cells % 0.1 %; Platelet Count (auto) 110 10^3/uL (140-450); Red Blood Cells 2.65 10^6/uL (4.0-5.20); Red Cell Distribution Width 18.1 % (11.8-14.3); White Blood Cell 3.1 10^3/uL (4.4-10.8)
--- NOTE | 2024-07-01 11:13 | DVHPN2 ---
Progress Note - Dictate Date Seen: July 01, 2024 Medical Necessity Reason Pt with a Central, PICC or Fol: Yes The following are medically ne: Eagle Catheter Reason for eagle catheter: Strict I&O Subjective Ms. Dawkins is a 63 years old female with a history of chronic kidney failure on hemodialysis, recent spine fracture, she came to the [facility] on 06/10/2024 with a chief complaint of back pain. I have seen and examined the patient, I have discussed with her nurse, she was tired and sleepy this morning, oriented times 1-2 only, she did not sleep overnight, she was aggressive and not cooperative Hemodialysis on 07/01/2024 Blood culture, 06/11/2024: Urinalysis, 06/11/2024: Negative Plasma alcohol, 06/10/2024: <3 ABG, 06/08/2024: Respiratory alkalosis WBC/HB/PLT/MCV, 06/11/2024: 1.7/10.5/114/89.3, 06/15/2024: 2.2/9.7/124/87.7, 06/16/2024: 0.5/10.3/136/86.5, 06/17/2024: 7.2/9.9/152/87.3 Na, 06/10/2024: 136, 06/12/2024: 133, 06/14/2024: 125, 06/15/24: 130 BUN/CR, 05/2624: 47/7.51, 06/15/2024: 31/5.74 HGB A1c, 06/11/2024: 4.3 Liver function tests, 06/10/2024: Unremarkable TG/HDL/LDL/HDL, 06/11/2024: 63/106/47/40 Echocardiogram, 06/11/2024: LVEF is normal 50-55% Rv function normal Moderate pericardial effusion with no evidence of tamponade Large left pleural effusion Chest x-ray, 06/11/2024: Lines and tubes in satisfactory position. No significant interval change Chest x-ray, 06/15/2024: 1. Mild diffuse increased prominence of the pulmonary vasculature. 2. Lines and tubes unchanged CT head, 06/10/2024: Subacute stroke involving the left frontal lobe white matter which also may involve the left temporal lobe as well can not rule out acute features CT head 06/21/24: 1. No acute intracranial hemorrhage 2. Stable left parietal infarct unchanged from 06/10/2024. CT head, 06/28/2024: 1. No acute intracranial hemorrhage. 2. Stable infarct on the left in the frontal parietal lobe. 3. No new areas of ischemia. CT T-spine, 06/10/2024: No evidence of fracture in the thoracic spine CT lumbar spine, 06/10/2024: No acute fracture. Grade 1 anterolisthesis at L4-L5 with bilateral pars defects. Moderate to severe endplate degenerative changes at L4-L5, T12-L1, and L5-S1. There is severe spinal canal narrowing at L4-L5. Partially visualized moderate bilateral pleural effusions. Mild diffuse anasarca CTA head, neck, 06/10/2024: No significant vascular stenosis involving the head / neck. Moderate occlusion of the bilateral V4 segments vertebral arteries due to calcified and noncalcified plaques MRI head, 06/12/2024: 1. There is no acute intracranial process. 2. Chronic infarct in the superolateral left frontal lobe. (I saw another possible chronic stroke: Images 16) MRI lumbar spine, 06/19/2024: Severe spinal canal stenosis with severe bilateral lateral recess narrowing at L3-L4. Severe bilateral neural foramina stenosis at L3-L4 with moderate right and severe left-sided neural foramina stenosis at L4- L5. Grade 1 anterolisthesis of L4 on L5. vital signs Vital Sign Date Time Temp Pulse Resp B/P (MAP) Pulse Ox O2 Delivery O2 Flow Rate FiO2 07/01/24 08:59 98.1 59 20 137/53 (81) 97 98.1 07/01/24 08:00 Nasal Cannula* 4 36 Total Intake and Output 06/30/24 06/30/24 07/01/24 15:00 23:00 07:00 Intake Total 50 ml 240 ml Output Total 0 ml Balance 50 ml 240 ml medications Current Medications Medications Dose Ordered Sig/Eric Route Start Time Stop Time Status Last Admin Dose Admin Ondansetron HCl 4 mg Q4HP PRN IV 06/11/24 02:00 Nitroglycerin 0.4 mg Q5MINP PRN SL 06/11/24 02:00 Albuterol 2.5 mg Q4HPRN PRN NEB 06/11/24 02:00 06/29/24 21:59 2.5 MG Ipratropium [place] 0.5 mg Q4HPRN PRN NEB 06/11/24 02:00 06/29/24 21:59 0.5 MG Ceftriaxone Sodium 50 ml @ 100 mls/hr DAILY@09 IV 06/13/24 09:00 07/01/24 09:26 100 MLS/HR Acetaminophen 650 mg Q6HP PRN GT 06/11/24 23:45 06/12/24 02:48 650 MG Nicardipine HCl 250 ml @ 50 mls/hr Q5H IV 06/13/24 14:45 UNV Hydralazine HCl 10 mg Q6HPRN PRN IV 06/17/24 00:00 06/29/24 15:37 10 MG Dopamine HCl/ Dextrose 250 ml @ 15.544 mls/ hr Q16H5M IV 06/21/24 11:00 UNV Metoprolol Tartrate 50 mg BID PO 06/23/24 22:00 06/30/24 21:26 50 MG Amlodipine Besylate 10 mg DAILY PO 06/24/24 10:00 06/30/24 09:14 10 MG Vancomycin HCl 0 ml @ 0 mls/hr UD IV 06/23/24 20:45 Clonidine HCl 0.2 mg Q7D TD 06/25/24 14:30 06/25/24 16:35 0.2 MG Famotidine 10 mg EOD PO 06/27/24 10:00 06/29/24 12:22 10 MG Heparin Sodium (Porcine) 2,300 units AMANDA PRN IV 06/26/24 15:30 Cancel Acetaminophen/ Hydrocodone Bitart 1 tab Q6HPRN PRN PO 06/26/24 22:30 07/01/24 04:54 1 TAB Morphine Sulfate 2 mg Q4HPRN PRN IV 06/27/24 00:45 06/27/24 05:51 2 MG Nifedipine 90 mg DAILY PO 06/28/24 10:00 06/30/24 09:18 90 MG Fluconazole 100 mg HS PO 06/27/24 22:00 06/30/24 21:25 100 MG objective The patient is well-nourished and well-developed with no distress. MENTAL STATUS: Subjective CRANIAL NERVES: Pupils are equal round and reactive to light briskly, normal external eye movement, normal sensation and motor examination in the lateral trigeminal nerve distribution, no facial weakness. SENSATION: Okay to light touch and pinprick MOTOR: Normal tone in the upper and lower extremity. Normal muscle bulk. No fasciculations. She moves the arms and legs REFLEXES: Deep tendon reflexes are symmetrical. No pathological reflexes. CEREBELLAR/COORDINATION: Deferred GAIT/STATION: deferred. No tenderness in the back to palpation laboratory and microbiology Laboratory Tests 07/01/24 10:18 Test 07/01/24 10:18 Range/Units Serum Glucose 92 74-106 mg/dL Problem List 2 chronic strokes in the left hemisphere per MRI and CT scan, asymptomatic Acute low back pain to rule out diskitis Acute respiratory failure Pancytopenia, better Hyponatremia Hypokalemia Chronic kidney failure Metabolic encephalopathy/psychosis Anisocoria noticed on 06/18/2024, uncertain clinical significance ? Back pain Assessment/Plan Monitoring Supportive treatment ICU care IV antibiotics Discontinue gabapentin and baclofen, consider resume as indicated Aspirin 81 mg daily Lipitor 40 mg daily Remeron 15 mg p.o. q.h.s., consider discontinued when the patient's sleep and nocturnal psychosis amber better DVT prophylaxis GI prophylaxis Consult hematology Infectious disease on case Cardiology on case Pulmonary on case Nephrology on case More recommendation per clinical course This medical document was created using an electronic medical record system with [employer] dictation system. Although this document has been carefully reviewed, there may still be some phonetic and typographical errors. These areas are purely typographical due to imperfections of the software programs, and do not reflect any compromise in the patient's medical care Prognosis poor Dietary Evaluation Review Comments: 1) If patient remains NPO > 7 days, consider EN/TPN to meet at least 75% estimated needs 2) If GI route is preferred, consider Nepro @ 25 mL/hr goal rate as tolerated. EN regimen will provide 1080 kcals, 49g Pro, and 447 mL free H2O per 24 hrs. EN regimen will meet ~90% estimated daily energy needs and ~47% estimated daily protein needs 3) Initiate Nephro-Susan @ 1 tb qd 4) Advance to 60g CCHO renal standard diet when medically feasible, pending [employer] approval 5) Follow-up with nephrology, cardiology, and pulmonology 6) Continue to monitor I&O, labs, and skin integrity Expected Outcomes/Goals: 1) patient to receive nutrition support within 7 days of NPO status 2) labs to improve 3) wound to improve 4) patient to be extubated and diet to advance 5) f/u in 2-3 days Plan discussed with: Other Total Time (mins): 35 FORD ORTA MD July 01, 2024 11:13
--- NOTE | 2024-07-01 12:40 | DVHPN2 ---
Progress Note - Dictate Date Seen: July 01, 2024 Medical Necessity Reason Pt with a Central, PICC or Fol: Yes The following are medically ne: Eagle Catheter Reason for eagle catheter: Strict I&O Subjective Patient downgraded to tele bed. She is on 4 LPM NC Has not participated with the physical therapy today. S/P extubation on 06/25. vital signs Vital Sign Date Time Temp Pulse Resp B/P (MAP) Pulse Ox O2 Delivery O2 Flow Rate FiO2 07/01/24 08:59 98.1 59 20 137/53 (81) 97 98.1 07/01/24 08:00 Nasal Cannula* 4 36 Total Intake and Output 06/30/24 06/30/24 07/01/24 15:00 23:00 07:00 Intake Total 50 ml 240 ml Output Total 0 ml Balance 50 ml 240 ml medications Current Medications Medications Dose Ordered Sig/Eric Route Start Time Stop Time Status Last Admin Dose Admin Ondansetron HCl 4 mg Q4HP PRN IV 06/11/24 02:00 Nitroglycerin 0.4 mg Q5MINP PRN SL 06/11/24 02:00 Albuterol 2.5 mg Q4HPRN PRN NEB 06/11/24 02:00 06/29/24 21:59 2.5 MG Ipratropium [place] 0.5 mg Q4HPRN PRN NEB 06/11/24 02:00 06/29/24 21:59 0.5 MG Ceftriaxone Sodium 50 ml @ 100 mls/hr DAILY@09 IV 06/13/24 09:00 07/01/24 09:26 100 MLS/HR Acetaminophen 650 mg Q6HP PRN GT 06/11/24 23:45 06/12/24 02:48 650 MG Nicardipine HCl 250 ml @ 50 mls/hr Q5H IV 06/13/24 14:45 UNV Hydralazine HCl 10 mg Q6HPRN PRN IV 06/17/24 00:00 06/29/24 15:37 10 MG Dopamine HCl/ Dextrose 250 ml @ 15.544 mls/ hr Q16H5M IV 06/21/24 11:00 UNV Metoprolol Tartrate 50 mg BID PO 06/23/24 22:00 06/30/24 21:26 50 MG Amlodipine Besylate 10 mg DAILY PO 06/24/24 10:00 06/30/24 09:14 10 MG Vancomycin HCl 0 ml @ 0 mls/hr UD IV 06/23/24 20:45 Clonidine HCl 0.2 mg Q7D TD 06/25/24 14:30 06/25/24 16:35 0.2 MG Famotidine 10 mg EOD PO 06/27/24 10:00 06/29/24 12:22 10 MG Heparin Sodium (Porcine) 2,300 units AMANDA PRN IV 06/26/24 15:30 Cancel Acetaminophen/ Hydrocodone Bitart 1 tab Q6HPRN PRN PO 06/26/24 22:30 07/01/24 04:54 1 TAB Morphine Sulfate 2 mg Q4HPRN PRN IV 06/27/24 00:45 06/27/24 05:51 2 MG Nifedipine 90 mg DAILY PO 06/28/24 10:00 06/30/24 09:18 90 MG Fluconazole 100 mg HS PO 06/27/24 22:00 06/30/24 21:25 100 MG Lorazepam 1 mg Q6HP PRN IV 07/01/24 11:15 objective General Appearance:calm HEENT: normal Respiratory: bilateral good air entry Cardiovascular: Regular rate, Normal S1, Normal S2 Abdominal: Normal bowel sounds, Soft, No tenderness Extremities: Other (BLE pitting edema 2+) Skin: No rashes Neuro: grossly intact laboratory and microbiology Laboratory Tests 07/01/24 10:18 Test 07/01/24 10:18 Range/Units Serum Glucose 92 74-106 mg/dL Assessment/Plan Patient is a 63-year-old female presents to the hospital with: Leucopenia Vertebral Discitis subacute CVA Acute encephalopathy Acute hypoxic respiratory S/P intubation on mechanical ventilator ESRD on HD Fluid overload Hypertensive emergency Hx T12 compression fracture Recommendations: S/P Extubation on 06/25, downgraded to tele sitter+ MRI lumbar spine done 06/19 is wo contrast which is not very ideal for infection. there is no comment about discitis or phlegmon. however, MRI in [facility] on 05/22 commented about discitis. would consider resuming and completing the course for now since she already has been on antibiotics since 05/22. tagged wbc scan may be a better study since she on HD, mri w contrast might be difficult. recommend 6 weeks of IV Vancomycin/ Ceftriaxone from 06/11. closely monitor cbc follow up out pt with Dr Carlisle. reviewed [facility] records in detail: She had low wbc from 03/23/2024 with 3.4 with intermittent 1.8 and she has been admitted 2-3 times and wbc is in same range. no work up done She had mri spine with on 05/22 shows hypointense T1 and hyperintense T2 at L3-L4 concerning for discitis osteomyelitis. Hyperintense T2 signal along epidural space L3-L4 for 5mm AP diameter concerning for Phlegmon. ID Dr Carlisle saw the patient and recommended IV Vancomycin for 6 weeks. There is no positive blood cultures or biopsy done. His notes on 05/23 recommended 6 weeks of IV vancomycin ( switched from ceftriaxone for low wbc). since leucopenia was present in prior admissions too, its unlikely due to Vancomycin discussed with nephrology, reviewed old labs, back in 2022 also her wbc was in 3k. unsure if she had work up done platelets were in 200 in 2023 but later its been low too MRI showed Severe spinal canal stenosis with severe bilateral lateral recess narrowing at L3-L4. Severe bilateral neural foramina stenosis at L3-L4 with moderate right and severe left-sided neural foramina stenosis at L4-L5. Grade 1 anterolisthesis of L4 on L5. 06/29, Vancomycin Random is 15.3 Antibiotic status: Ceftriaxone IV [Started on 06/11 - Ongoing] Vancomycin IV [Restarted on 06/23 - Ongoing] Prognosis guarded due multiple co morbidities Discussed with Dr Mccollum Thank you for consult. Dietary Evaluation Review Comments: 1) If patient remains NPO > 7 days, consider EN/TPN to meet at least 75% estimated needs 2) If GI route is preferred, consider Nepro @ 25 mL/hr goal rate as tolerated. EN regimen will provide 1080 kcals, 49g Pro, and 447 mL free H2O per 24 hrs. EN regimen will meet ~90% estimated daily energy needs and ~47% estimated daily protein needs 3) Initiate Nephro-Susan @ 1 tb qd 4) Advance to 60g CCHO renal standard diet when medically feasible, pending [facility] approval 5) Follow-up with nephrology, cardiology, and pulmonology 6) Continue to monitor I&O, labs, and skin integrity Expected Outcomes/Goals: 1) patient to receive nutrition support within 7 days of NPO status 2) labs to improve 3) wound to improve 4) patient to be extubated and diet to advance 5) f/u in 2-3 days Plan discussed with: GONZÁLEZ iVdal MD July 01, 2024 12:40
[2024-07-01] MEDS: SODIUM CHL 0.9% 1000 ML BAG XX ONE (14:05)
--- NOTE | 2024-07-01 16:29 | DVHPN2 ---
Subjective Patient's extubated on 06/25, currently on nasal Oxymizer, more awake alert , CURRENTLY HAS NOT PARTICIPATED WITH THE PHYSICAL THERAPY TODAY Reviewed: Care Plan Changes from previous H/P or p: No Changes Objective Vitals Vital Signs Date Time Temp Pulse Resp B/P (MAP) Pulse Ox O2 Delivery O2 Flow Rate FiO2 07/01/24 13:00 98.0 82 20 110/67 (81) 98 98.0 07/01/24 08:00 Nasal Cannula* 4 36 Intake/Output Intake and Output 07/01/24 07:00 Intake Total 290 ml Output Total 0 ml Balance 290 ml Intake Oral 240 ml IV Total 50 ml Output Urine Total 0 ml Stool Total 0 ml Exam HEENT pupils are reactive , brisk reaction somewhat unequal. 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 no edema [employer] extubated following commands Medications Current Medications Medications Dose Ordered Sig/Eric Route Start Time Stop Time Status Last Admin Dose Admin Ondansetron HCl 4 mg Q4HP PRN IV 06/11/24 02:00 Nitroglycerin 0.4 mg Q5MINP PRN SL 06/11/24 02:00 Albuterol 2.5 mg Q4HPRN PRN NEB 06/11/24 02:00 06/29/24 21:59 2.5 MG Ipratropium [place] 0.5 mg Q4HPRN PRN NEB 06/11/24 02:00 06/29/24 21:59 0.5 MG Ceftriaxone Sodium 50 ml @ 100 mls/hr DAILY@09 IV 06/13/24 09:00 07/01/24 09:26 100 MLS/HR Acetaminophen 650 mg Q6HP PRN GT 06/11/24 23:45 06/12/24 02:48 650 MG Nicardipine HCl 250 ml @ 50 mls/hr Q5H IV 06/13/24 14:45 UNV Hydralazine HCl 10 mg Q6HPRN PRN IV 06/17/24 00:00 06/29/24 15:37 10 MG Dopamine HCl/ Dextrose 250 ml @ 15.544 mls/ hr Q16H5M IV 06/21/24 11:00 UNV Metoprolol Tartrate 50 mg BID PO 06/23/24 22:00 06/30/24 21:26 50 MG Amlodipine Besylate 10 mg DAILY PO 06/24/24 10:00 06/30/24 09:14 10 MG Vancomycin HCl 0 ml @ 0 mls/hr UD IV 06/23/24 20:45 Clonidine HCl 0.2 mg Q7D TD 06/25/24 14:30 06/25/24 16:35 0.2 MG Famotidine 10 mg EOD PO 06/27/24 10:00 06/29/24 12:22 10 MG Heparin Sodium (Porcine) 2,300 units AMANDA PRN IV 06/26/24 15:30 Cancel Acetaminophen/ Hydrocodone Bitart 1 tab Q6HPRN PRN PO 06/26/24 22:30 07/01/24 04:54 1 TAB Morphine Sulfate 2 mg Q4HPRN PRN IV 06/27/24 00:45 06/27/24 05:51 2 MG Nifedipine 90 mg DAILY PO 06/28/24 10:00 06/30/24 09:18 90 MG Fluconazole 100 mg HS PO 06/27/24 22:00 06/30/24 21:25 100 MG Lorazepam 1 mg Q6HP PRN IV 07/01/24 11:15 Laboratory Results Laboratory Tests 07/01/24 10:18 Chemistry Test 07/01/24 10:18 Calcium Level 9.8 mg/dL (8.7-10.4) Urinalysis Test 06/11/24 03:00 Urine Color Light-yellow (Yellow) Urine Clarity Turbid (Clear) H Urine pH 8.0 (5.0-9.0) Urine Specific [place] 1.008 (1.001-1.035) Urine Protein 3+ (Negative) H Urine Ketones Negative (Negative) Urine Blood Negative /uL (Negative) Urine Nitrite Negative (Negative) Urine Bilirubin Negative (Negative) Urine Urobilinogen Normal mg/dL (Negative) Urine Leukocyte Esterase 1+ /uL (Negative) Urine RBC 10 /hpf (0 - 4) Urine Microscopic WBC 41 /HPF (0-5) H Urine Squamous Epithelial Cells Mod /hpf (<5) Urine Bacteria None seen /hpf (None Seen) Urine Glucose 2+ mg/dL (Normal) H Microbiology Microbiology Date/Time Source Procedure Growth Status 06/13/24 08:45 Nose MRSA Screen - Final Complete 06/11/24 23:55 Blood Blood Culture - Final NO GROWTH AFTER 5 DAYS OF INCUBATION. Complete Assessment/Plan Assessment/Plan 63-year-old female with a known history of hypertension, dyslipidemia, coronary artery disease, anxiety disorder, recent mechanical fall found to have acute small T12 compression fracture, L3-4 lumbar diskitis presented to the hospital with right-sided weakness altered mental status eventually intubated in the ER for airway protection. Patient was found to have acute/subacute left frontal and temporal infarct currently MRI brain is pending. 1. Acute hypoxic respiratory failure requiring intubation with mechanical ventilation secondary to metabolic encephalopathy , extubated on 06/25 2. Metabolic encephalopathy ruled in acute CVA 3.Subacute CVA with the left frontal and temporal infarct, MRI brain shows no evidence of acute infarct 4. Hypertensive emergency with the end-organ involvement , off the nicardipine drip 5. End-stage renal disease on hemodialysis received hemodialysis 6. Coronary artery disease 7. L3-4 lumbar diskitis/osteomyelitis, resume IV vancomycin and consult infectious disease specialist 8. Physical deconditioning 9. Anisocoria, repeat head CT shows no evidence of any acute pathology besides old left frontal /parietal infarct -[employer] CONSULTATION FOR PLACEMENT TO RETIREMENT FACILITY Continue O2 supplementation -physical therapy evaluation and treatment, diet as tolerated, can downgraded to telemetry with a sitter. Plan discussed with: Other Date of Service: July 01, 2024 Billing Provider: BENJA ROBBINS MD Common Visit Codes: NOT BILLABLE BENJA ROBBINS MD July 01, 2024 16:29
--- NOTE | 2024-07-01 19:51 | DVHPN2 ---
Progress Note - Dictate Date Seen: July 01, 2024 Medical Necessity Reason Pt with a Central, PICC or Fol: Yes The following are medically ne: Eagle Catheter Reason for eagle catheter: Strict I&O Subjective Patient seen and examined at bedside. On supplemental oxygen Overnight events reviewed. vital signs Vital Sign Date Time Temp Pulse Resp B/P (MAP) Pulse Ox O2 Delivery O2 Flow Rate FiO2 07/01/24 18:20 98.1 89 19 133/62 (85) 100 98.1 07/01/24 17:46 Nasal Cannula* 4 36 Total Intake and Output 06/30/24 06/30/24 07/01/24 15:00 23:00 07:00 Intake Total 50 ml 240 ml Output Total 0 ml Balance 50 ml 240 ml medications Current Medications Medications Dose Ordered Sig/Eric Route Start Time Stop Time Status Last Admin Dose Admin Ondansetron HCl 4 mg Q4HP PRN IV 06/11/24 02:00 Nitroglycerin 0.4 mg Q5MINP PRN SL 06/11/24 02:00 Albuterol 2.5 mg Q4HPRN PRN NEB 06/11/24 02:00 06/29/24 21:59 2.5 MG Ipratropium [place] 0.5 mg Q4HPRN PRN NEB 06/11/24 02:00 06/29/24 21:59 0.5 MG Ceftriaxone Sodium 50 ml @ 100 mls/hr DAILY@09 IV 06/13/24 09:00 07/01/24 09:26 100 MLS/HR Acetaminophen 650 mg Q6HP PRN GT 06/11/24 23:45 06/12/24 02:48 650 MG Nicardipine HCl 250 ml @ 50 mls/hr Q5H IV 06/13/24 14:45 UNV Hydralazine HCl 10 mg Q6HPRN PRN IV 06/17/24 00:00 07/01/24 17:42 10 MG Dopamine HCl/ Dextrose 250 ml @ 15.544 mls/ hr Q16H5M IV 06/21/24 11:00 UNV Metoprolol Tartrate 50 mg BID PO 06/23/24 22:00 06/30/24 21:26 50 MG Amlodipine Besylate 10 mg DAILY PO 06/24/24 10:00 06/30/24 09:14 10 MG Vancomycin HCl 0 ml @ 0 mls/hr UD IV 06/23/24 20:45 Clonidine HCl 0.2 mg Q7D TD 06/25/24 14:30 06/25/24 16:35 0.2 MG Famotidine 10 mg EOD PO 06/27/24 10:00 06/29/24 12:22 10 MG Heparin Sodium (Porcine) 2,300 units AMANDA PRN IV 06/26/24 15:30 Cancel Acetaminophen/ Hydrocodone Bitart 1 tab Q6HPRN PRN PO 06/26/24 22:30 07/01/24 04:54 1 TAB Morphine Sulfate 2 mg Q4HPRN PRN IV 06/27/24 00:45 07/01/24 17:32 2 MG Nifedipine 90 mg DAILY PO 06/28/24 10:00 06/30/24 09:18 90 MG Fluconazole 100 mg HS PO 06/27/24 22:00 06/30/24 21:25 100 MG Lorazepam 1 mg Q6HP PRN IV 07/01/24 11:15 objective Gen.: Patient lying in bed in no apparent distress. On supplemental oxygen Head: Normocephalic, atraumatic. Eyes: EOMI/PERRLA. Ears: Normal hearing. Normal anatomy. Neck/trachea: Trachea midline, supple. Nose: Normal external anatomy. Mouth: Moist mucous membranes. Chest: Decreased air entry bilaterally. No wheezing or rhonchi. Cardiovascular: Positive S1, positive S2. Regular rate and rhythm. Abdomen: Positive bowel sounds in all 4 quadrants. Soft, non-tender, non- distended. : Deferred. Rectal: Deferred. Skin: Warm, dry. Intact. Extremities: 2+ radial pulses bilaterally. No lower extremity edema. Neuro: Awake, alert, oriented x3. No gross motor or sensory deficits. Cranial nerves II through XII intact. Gait not assessed laboratory and microbiology Laboratory Tests 07/01/24 10:18 Test 07/01/24 10:18 Range/Units Serum Glucose 92 74-106 mg/dL Assessment/Plan Impression: Acute hypoxic respiratory failure Acute CVA Acute encephalopathy ESRD, on hemodialysis Pulmonary edema Shock Obesity BMI 33.3 Events: Remains on supplemental oxygen On 4 LPM NC Taper O2 as tolerated Improving o2 requirements Status post hemodialysis - 3 liters removed. Head of bed elevation Aspiration precautions Incentive spirometry Continue antibiotics WBC trending down, 3.1 k Monitor hemoglobin, 8.0 g/dL. Trending down. Monitor platelets, trending down. HD per Nephrology Monitor renal function, creat trending down. Monitor electrolytes. Supplement as necessary. Monitor ins and outs. Off gabapentin Monitor respiratory status closely Labs and imaging reviewed Plan: S/p extubation Supplemental oxygen Titrate to keep O2 sats above 92%. Monitor blood pressure Continue antibiotics. F/u cultures. Bronchodilators PRN Accu-Cheks, ISS Echo reviewed Cardiology recs appreciated Pressors as necessary for hemodynamic support Titrate to keep mean arterial pressure greater than 65 mmHg. HD per Nephrology Monitor renal function Monitor electrolytes. Supplement as necessary. Monitor ins and outs. Maintain euvolemia. GI prophylaxis. DVT prophylaxis. Prognosis: Poor given patient's multiple co-morbidities. Condition: Critical Rest of plan per hospitalist and other consultants. A total of 35 minutes of critical care time was spent reviewing the patient record, examining the patient, making a diagnostic and therapeutic plan, discussing this plan with the medical personnel, following up on diagnostic studies and following the patient for clinical stability excluding any and all procedures. At least 50% of this time was spent in direct, [id number] contact. Thank you, LISA Garcia, for allowing me to participate in this patient's care. Further recommendations will depend on the patient's clinical course. Please do not hesitate to contact me if you have any questions or concerns. This medical document was created using an electronic medical record system with [employer] dictation system. Although these documentations are being carefully reviewed, there may still be some phonetic and typographical changes. The errors are purely typographical, due to imperfection on the software program, and do not reflect any compromise in the patient's medical care. Dietary Evaluation Review Comments: 1) If patient remains NPO > 7 days, consider EN/TPN to meet at least 75% estimated needs 2) If GI route is preferred, consider Nepro @ 25 mL/hr goal rate as tolerated. EN regimen will provide 1080 kcals, 49g Pro, and 447 mL free H2O per 24 hrs. EN regimen will meet ~90% estimated daily energy needs and ~47% estimated daily protein needs 3) Initiate Nephro-Susan @ 1 tb qd 4) [facility] when medically feasible, pending [facility] approval 5) Follow-up with nephrology, cardiology, and pulmonology 6) Continue to monitor I&O, labs, and skin integrity Expected Outcomes/Goals: 1) patient to receive nutrition support within 7 days of NPO status 2) labs to improve 3) wound to improve 4) patient to be extubated and diet to advance 5) f/u in 2-3 days Plan discussed with: Other (DAVID Costa) NAE BELLAMY MD July 01, 2024 19:51
[2024-07-01] MEDS: EPOETIN ALFA-EPBX 4,000 UNIT/ML VIAL SC ONE (22:02)
--- NOTE | 2024-07-01 22:07 | DVHPN2 ---
Progress Note - Dictate Date Seen: July 01, 2024 Medical Necessity Reason Pt with a Central, PICC or Fol: Yes The following are medically ne: Eagle Catheter Reason for eagle catheter: Strict I&O Subjective Patient was seen and evaluated in follow up. Patient downgraded to tele bed. Patient is on 4 LPM NC. Patient did not work with PT today. WBC 3.1, HGB 8.0, HCT 23.7, BUN 29, Outreach Specialist 5.00. Telemetry reviewed. vital signs Vital Sign Date Time Temp Pulse Resp B/P (MAP) Pulse Ox O2 Delivery O2 Flow Rate FiO2 07/01/24 21:00 98.1 92 19 152/73 (99) 99 98.1 07/01/24 17:46 Nasal Cannula* 4 36 Total Intake and Output 06/30/24 06/30/24 07/01/24 15:00 23:00 07:00 Intake Total 50 ml 240 ml Output Total 0 ml Balance 50 ml 240 ml medications Current Medications Medications Dose Ordered Sig/Eric Route Start Time Stop Time Status Last Admin Dose Admin Ondansetron HCl 4 mg Q4HP PRN IV 06/11/24 02:00 Nitroglycerin 0.4 mg Q5MINP PRN SL 06/11/24 02:00 Albuterol 2.5 mg Q4HPRN PRN NEB 06/11/24 02:00 06/29/24 21:59 2.5 MG Ipratropium [place] 0.5 mg Q4HPRN PRN NEB 06/11/24 02:00 06/29/24 21:59 0.5 MG Ceftriaxone Sodium 50 ml @ 100 mls/hr DAILY@09 IV 06/13/24 09:00 07/01/24 09:26 100 MLS/HR Acetaminophen 650 mg Q6HP PRN GT 06/11/24 23:45 06/12/24 02:48 650 MG Nicardipine HCl 250 ml @ 50 mls/hr Q5H IV 06/13/24 14:45 UNV Hydralazine HCl 10 mg Q6HPRN PRN IV 06/17/24 00:00 07/01/24 17:42 10 MG Dopamine HCl/ Dextrose 250 ml @ 15.544 mls/ hr Q16H5M IV 06/21/24 11:00 UNV Metoprolol Tartrate 50 mg BID PO 06/23/24 22:00 06/30/24 21:26 50 MG Amlodipine Besylate 10 mg DAILY PO 06/24/24 10:00 06/30/24 09:14 10 MG Vancomycin HCl 0 ml @ 0 mls/hr UD IV 06/23/24 20:45 Clonidine HCl 0.2 mg Q7D TD 06/25/24 14:30 06/25/24 16:35 0.2 MG Famotidine 10 mg EOD PO 06/27/24 10:00 06/29/24 12:22 10 MG Heparin Sodium (Porcine) 2,300 units AMANDA PRN IV 06/26/24 15:30 Cancel Acetaminophen/ Hydrocodone Bitart 1 tab Q6HPRN PRN PO 06/26/24 22:30 07/01/24 20:42 1 TAB Morphine Sulfate 2 mg Q4HPRN PRN IV 06/27/24 00:45 07/01/24 17:32 2 MG Nifedipine 90 mg DAILY PO 06/28/24 10:00 06/30/24 09:18 90 MG Fluconazole 100 mg HS PO 06/27/24 22:00 06/30/24 21:25 100 MG Lorazepam 1 mg Q6HP PRN IV 07/01/24 11:15 objective GENERAL: Alert and oriented x 3. No acute distress. EYES: PERRL, EOMI. Anicteric. HENT: Moist mucous membranes. LUNGS: Decreased breath sounds. CARDIOVASCULAR: Regular rate and rhythm. ABDOMEN: Soft, nontender and nondistended. EXTREMITIES: No edema. NEUROLOGIC: No focal neurological deficits. SKIN: Warm, dry. laboratory and microbiology Laboratory Tests 07/01/24 10:18 Test 07/01/24 10:18 Range/Units Serum Glucose 92 74-106 mg/dL Problem List Acute CVA. Hypertensive emergency. Questionable coronary artery disease. Moderate pericardial effusion. Acute hypoxic respiratory failure. End-stage renal disease on hemodialysis. History of T12 compression fracture. Assessment/Plan Continued all current supportive medical care. Morphine and [place] for pain management. Amlodipine, Clonidine. IV antibiotics as ordered. IV Hydralazine for SBP >160. Metoprolol. GI prophylactics. Additional plan as per the hospital course. Dietary Evaluation Review Comments: 1) If patient remains NPO > 7 days, consider EN/TPN to meet at least 75% estimated needs 2) If GI route is preferred, consider Nepro @ 25 mL/hr goal rate as tolerated. EN regimen will provide 1080 kcals, 49g Pro, and 447 mL free H2O per 24 hrs. EN regimen will meet ~90% estimated daily energy needs and ~47% estimated daily protein needs 3) Initiate Nephro-Susan @ 1 tb qd 4) Advance to 60g CCHO renal standard diet when medically feasible, pending [facility] approval 5) Follow-up with nephrology, cardiology, and pulmonology 6) Continue to monitor I&O, labs, and skin integrity Expected Outcomes/Goals: 1) patient to receive nutrition support within 7 days of NPO status 2) labs to improve 3) wound to improve 4) patient to be extubated and diet to advance 5) f/u in 2-3 days Plan discussed with: Patient SHAUN RAMOS MD July 01, 2024 22:07
[2024-07-02] VITALS (11 sets, daily range): BP systolic 141–172; BP diastolic 54–79; PULSE 71–82; RESP 16–20; TEMP 97.5–98.2; O2SAT 92–99
[2024-07-02] MEDS: LORazepam 2MG/ML-1ML VIAL IV PRN (05:24)
--- NOTE | 2024-07-02 09:35 | DVHPN2 ---
Progress Note - Dictate Date Seen: July 02, 2024 Medical Necessity Reason Pt with a Central, PICC or Fol: Yes The following are medically ne: Eagle Catheter Reason for eagle catheter: Strict I&O Subjective Patient downgraded to tele bed. Patient is agreeable with SNF placement. vital signs Vital Sign Date Time Temp Pulse Resp B/P (MAP) Pulse Ox O2 Delivery O2 Flow Rate FiO2 07/02/24 09:07 98.0 80 20 159/57 (91) 99 98.0 07/02/24 08:00 Nasal Cannula* 4 36 Total Intake and Output 07/01/24 07/01/24 07/02/24 15:00 23:00 07:00 Intake Total 50 ml 200 ml 352 ml Output Total 0 ml 0 ml Balance 50 ml 200 ml 352 ml medications Current Medications Medications Dose Ordered Sig/Eric Route Start Time Stop Time Status Last Admin Dose Admin Ondansetron HCl 4 mg Q4HP PRN IV 06/11/24 02:00 Nitroglycerin 0.4 mg Q5MINP PRN SL 06/11/24 02:00 Albuterol 2.5 mg Q4HPRN PRN NEB 06/11/24 02:00 06/29/24 21:59 2.5 MG Ipratropium [place] 0.5 mg Q4HPRN PRN NEB 06/11/24 02:00 06/29/24 21:59 0.5 MG Ceftriaxone Sodium 50 ml @ 100 mls/hr DAILY@09 IV 06/13/24 09:00 07/02/24 09:02 100 MLS/HR Acetaminophen 650 mg Q6HP PRN GT 06/11/24 23:45 06/12/24 02:48 650 MG Nicardipine HCl 250 ml @ 50 mls/hr Q5H IV 06/13/24 14:45 UNV Hydralazine HCl 10 mg Q6HPRN PRN IV 06/17/24 00:00 07/01/24 17:42 10 MG Dopamine HCl/ Dextrose 250 ml @ 15.544 mls/ hr Q16H5M IV 06/21/24 11:00 UNV Metoprolol Tartrate 50 mg BID PO 06/23/24 22:00 07/01/24 22:04 50 MG Amlodipine Besylate 10 mg DAILY PO 06/24/24 10:00 06/30/24 09:14 10 MG Vancomycin HCl 0 ml @ 0 mls/hr UD IV 06/23/24 20:45 Clonidine HCl 0.2 mg Q7D TD 06/25/24 14:30 06/25/24 16:35 0.2 MG Famotidine 10 mg EOD PO 06/27/24 10:00 06/29/24 12:22 10 MG Heparin Sodium (Porcine) 2,300 units AMANDA PRN IV 06/26/24 15:30 Cancel Acetaminophen/ Hydrocodone Bitart 1 tab Q6HPRN PRN PO 06/26/24 22:30 07/01/24 20:42 1 TAB Morphine Sulfate 2 mg Q4HPRN PRN IV 06/27/24 00:45 07/01/24 22:11 2 MG Nifedipine 90 mg DAILY PO 06/28/24 10:00 06/30/24 09:18 90 MG Fluconazole 100 mg HS PO 06/27/24 22:00 07/01/24 22:04 100 MG Lorazepam 1 mg Q6HP PRN IV 07/01/24 11:15 07/02/24 05:24 1 MG objective General Appearance: normal, calm HEENT: normal Respiratory: good air entry Cardiovascular: Regular rate, Normal S1, Normal S2 Abdominal: Normal bowel sounds, Soft, No tenderness Extremities: Other (BLE pitting edema 2+) Skin: No rashes Neuro: grossly intact laboratory and microbiology Laboratory Tests 07/01/24 10:18 Test 07/01/24 10:18 Range/Units Serum Glucose 92 74-106 mg/dL Assessment/Plan Patient is a 63-year-old female presents to the hospital with: Leucopenia Vertebral Discitis subacute CVA Acute encephalopathy Acute hypoxic respiratory S/P intubation on mechanical ventilator ESRD on HD Fluid overload Hypertensive emergency Hx T12 compression fracture Recommendations: pending SNF. altered, managed by primary MRI lumbar spine done 06/19 is wo contrast which is not very ideal for infection. there is no comment about discitis or phlegmon. however, MRI in [facility] on 05/22 commented about discitis. would consider resuming and completing the course for now since she already has been on antibiotics since 05/22. tagged wbc scan may be a better study since she on HD, mri w contrast might be difficult. recommend 6 weeks of IV Vancomycin/ Ceftriaxone from 06/11. closely monitor cbc follow up out pt with Dr Carlisle as oupt reviewed [facility] records in detail: She had low wbc from 03/23/2024 with 3.4 with intermittent 1.8 and she has been admitted 2-3 times and wbc is in same range. no work up done She had mri spine with on 05/22 shows hypointense T1 and hyperintense T2 at L3-L4 concerning for discitis osteomyelitis. Hyperintense T2 signal along epidural space L3-L4 for 5mm AP diameter concerning for Phlegmon. ID Dr Carlisle saw the patient and recommended IV Vancomycin for 6 weeks. There is no positive blood cultures or biopsy done. His notes on 05/23 recommended 6 weeks of IV vancomycin ( switched from ceftriaxone for low wbc). since leucopenia was present in prior admissions too, its unlikely due to Vancomycin discussed with nephrology, reviewed old labs, back in 2022 also her wbc was in 3k. unsure if she had work up done platelets were in 200 in 2023 but later its been low too MRI showed Severe spinal canal stenosis with severe bilateral lateral recess narrowing at L3-L4. Severe bilateral neural foramina stenosis at L3-L4 with moderate right and severe left-sided neural foramina stenosis at L4-L5. Grade 1 anterolisthesis of L4 on L5. 06/29, Vancomycin Random is 15.3 Antibiotic status: Ceftriaxone IV [Started on 06/11 - Ongoing] Vancomycin IV [Restarted on 06/23 - Ongoing] stable from ID stand point will sign off. please reconsult if any new concerns Prognosis guarded due multiple co morbidities Discussed with Dr Mccollum Thank you for consult. Dietary Evaluation Review Comments: 1) If patient remains NPO > 7 days, consider EN/TPN to meet at least 75% estimated needs 2) If GI route is preferred, consider Nepro @ 25 mL/hr goal rate as tolerated. EN regimen will provide 1080 kcals, 49g Pro, and 447 mL free H2O per 24 hrs. EN regimen will meet ~90% estimated daily energy needs and ~47% estimated daily protein needs 3) Initiate Nephro-Susan @ 1 tb qd 4) Advance to 60g CCHO renal standard diet when medically feasible, pending [facility] approval 5) Follow-up with nephrology, cardiology, and pulmonology 6) Continue to monitor I&O, labs, and skin integrity Expected Outcomes/Goals: 1) patient to receive nutrition support within 7 days of NPO status 2) labs to improve 3) wound to improve 4) patient to be extubated and diet to advance 5) f/u in 2-3 days Plan discussed with: GONZÁLEZ Vidal MD July 02, 2024 09:35
--- NOTE | 2024-07-02 09:44 | DVHPN2 ---
Progress Note - Dictate Date Seen: July 02, 2024 Medical Necessity Reason Pt with a Central, PICC or Fol: Yes The following are medically ne: Eagle Catheter Reason for eagle catheter: Strict I&O Subjective Was extubated and transferred out of ICU vital signs Vital Sign Date Time Temp Pulse Resp B/P (MAP) Pulse Ox O2 Delivery O2 Flow Rate FiO2 07/02/24 09:07 98.0 80 20 159/57 (91) 99 98.0 07/02/24 08:00 Nasal Cannula* 4 36 Total Intake and Output 07/01/24 07/01/24 07/02/24 15:00 23:00 07:00 Intake Total 50 ml 200 ml 352 ml Output Total 0 ml 0 ml Balance 50 ml 200 ml 352 ml medications Current Medications Medications Dose Ordered Sig/Eric Route Start Time Stop Time Status Last Admin Dose Admin Ondansetron HCl 4 mg Q4HP PRN IV 06/11/24 02:00 Nitroglycerin 0.4 mg Q5MINP PRN SL 06/11/24 02:00 Albuterol 2.5 mg Q4HPRN PRN NEB 06/11/24 02:00 06/29/24 21:59 2.5 MG Ipratropium [place] 0.5 mg Q4HPRN PRN NEB 06/11/24 02:00 06/29/24 21:59 0.5 MG Ceftriaxone Sodium 50 ml @ 100 mls/hr DAILY@09 IV 06/13/24 09:00 07/02/24 09:02 100 MLS/HR Acetaminophen 650 mg Q6HP PRN GT 06/11/24 23:45 06/12/24 02:48 650 MG Nicardipine HCl 250 ml @ 50 mls/hr Q5H IV 06/13/24 14:45 UNV Hydralazine HCl 10 mg Q6HPRN PRN IV 06/17/24 00:00 07/01/24 17:42 10 MG Dopamine HCl/ Dextrose 250 ml @ 15.544 mls/ hr Q16H5M IV 06/21/24 11:00 UNV Metoprolol Tartrate 50 mg BID PO 06/23/24 22:00 07/01/24 22:04 50 MG Amlodipine Besylate 10 mg DAILY PO 06/24/24 10:00 06/30/24 09:14 10 MG Vancomycin HCl 0 ml @ 0 mls/hr UD IV 06/23/24 20:45 Clonidine HCl 0.2 mg Q7D TD 06/25/24 14:30 06/25/24 16:35 0.2 MG Famotidine 10 mg EOD PO 06/27/24 10:00 06/29/24 12:22 10 MG Heparin Sodium (Porcine) 2,300 units AMANDA PRN IV 06/26/24 15:30 Cancel Acetaminophen/ Hydrocodone Bitart 1 tab Q6HPRN PRN PO 06/26/24 22:30 07/01/24 20:42 1 TAB Morphine Sulfate 2 mg Q4HPRN PRN IV 06/27/24 00:45 07/01/24 22:11 2 MG Nifedipine 90 mg DAILY PO 06/28/24 10:00 06/30/24 09:18 90 MG Fluconazole 100 mg HS PO 06/27/24 22:00 07/01/24 22:04 100 MG Lorazepam 1 mg Q6HP PRN IV 07/01/24 11:15 07/02/24 05:24 1 MG objective More awake Lungs Diminished air entry at bases CV:: RR, no pericardial rub Abdomen: soft, mildly distended, low BS Trace edema of legs laboratory and microbiology Laboratory Tests 07/01/24 10:18 Test 07/01/24 10:18 Range/Units Serum Glucose 92 74-106 mg/dL Problem List End-stage renal disease on HD Anemia of renal disease. Pneumonia Acute hypoxic Respiratory failure, s/p extubation Subacute stroke. T-spine fracture Plan: HD on TTS schedule Fluid restriction less than 1 L per day On metoprolol and amlodipine ANANTH post HD as needed, goal Hb: 10-11 g/dl Preparing for transfer to SNF Dietary Evaluation Review Comments: 1) If patient remains NPO > 7 days, consider EN/TPN to meet at least 75% estimated needs 2) If GI route is preferred, consider Nepro @ 25 mL/hr goal rate as tolerated. EN regimen will provide 1080 kcals, 49g Pro, and 447 mL free H2O per 24 hrs. EN regimen will meet ~90% estimated daily energy needs and ~47% estimated daily protein needs 3) Initiate Nephro-Susan @ 1 tb qd 4) [facility] when medically feasible, pending [facility] approval 5) Follow-up with nephrology, cardiology, and pulmonology 6) Continue to monitor I&O, labs, and skin integrity Expected Outcomes/Goals: 1) patient to receive nutrition support within 7 days of NPO status 2) labs to improve 3) wound to improve 4) patient to be extubated and diet to advance 5) f/u in 2-3 days Plan discussed with: STEFANIE Fierro MD July 02, 2024 09:44
[2024-07-02 10:01] LABS: Basophils # (auto) 0 10 ^3/uL (0-0.2); Basophils % (auto) 0.5 % (0.0-2.0); Eosinophils # (auto) 0.1 10 ^3/uL (0-0.8); Eosinophils % (auto) 3.1 % (0.0-7.0); Hematocrit 28.3 % (36.0-46.0); Hemoglobin 9.4 g/dL (12.2-16.2); Lymphocytes # (auto) 0.7 10 ^3/uL (0.4-5.4); Lymphocytes % (auto) 26.3 % (10.0-50.0); Mean Corpuscular Hemoglobin 29.9 pg (28.0-32.0); Mean Corpuscular Hgb Conc. 33.3 g/dL (32.0-36.0); Mean Corpuscular Volume 89.8 fL (80.0-100.0); Monocytes # (auto) 0.3 10 ^3/uL (0-1.3); Monocytes % (auto) 11.3 % (0.0-12.0); Neutrophils # (auto) 1.6 10 ^3/uL (1.6-8.6); Neutrophils % (auto) 58.8 % (37.0-80.0); Nucleated Red Blood Cells % 0.3 %; Platelet Count (auto) 100 10^3/uL (140-450); Red Blood Cells 3.15 10^6/uL (4.0-5.20); Red Cell Distribution Width 18.5 % (11.8-14.3); White Blood Cell 2.8 10^3/uL (4.4-10.8)
--- NOTE | 2024-07-02 15:15 | DVHPN2 ---
Subjective Patient's extubated on 06/25, currently on nasal Oxymizer, more awake alert , patient remains confused, currently having lunch with the dental laboratory assistant from [employer]. Reviewed: Care Plan Changes from previous H/P or p: No Changes Objective Vitals Vital Signs Date Time Temp Pulse Resp B/P (MAP) Pulse Ox O2 Delivery O2 Flow Rate FiO2 07/02/24 14:56 172/66 07/02/24 11:18 78 07/02/24 09:07 98.0 20 99 98.0 07/02/24 08:00 Nasal Cannula* 4 36 Intake/Output Intake and Output 07/02/24 07:00 Intake Total 602 ml Output Total 0 ml Balance 602 ml Intake Oral 552 ml IV Total 50 ml Output Urine Total 0 ml Exam HEENT pupils are reactive , brisk reaction somewhat unequal. 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 Medications Current Medications Medications Dose Ordered Sig/Eric Route Start Time Stop Time Status Last Admin Dose Admin Ondansetron HCl 4 mg Q4HP PRN IV 06/11/24 02:00 Nitroglycerin 0.4 mg Q5MINP PRN SL 06/11/24 02:00 Albuterol 2.5 mg Q4HPRN PRN NEB 06/11/24 02:00 06/29/24 21:59 2.5 MG Ipratropium [place] 0.5 mg Q4HPRN PRN NEB 06/11/24 02:00 06/29/24 21:59 0.5 MG Ceftriaxone Sodium 50 ml @ 100 mls/hr DAILY@09 IV 06/13/24 09:00 07/02/24 09:02 100 MLS/HR Acetaminophen 650 mg Q6HP PRN GT 06/11/24 23:45 06/12/24 02:48 650 MG Nicardipine HCl 250 ml @ 50 mls/hr Q5H IV 06/13/24 14:45 UNV Hydralazine HCl 10 mg Q6HPRN PRN IV 06/17/24 00:00 07/01/24 17:42 10 MG Dopamine HCl/ Dextrose 250 ml @ 15.544 mls/ hr Q16H5M IV 06/21/24 11:00 UNV Metoprolol Tartrate 50 mg BID PO 06/23/24 22:00 07/02/24 10:18 50 MG Amlodipine Besylate 10 mg DAILY PO 06/24/24 10:00 07/02/24 10:19 10 MG Vancomycin HCl 0 ml @ 0 mls/hr UD IV 06/23/24 20:45 Clonidine HCl 0.2 mg Q7D TD 06/25/24 14:30 07/02/24 14:56 0.2 MG Famotidine 10 mg EOD PO 06/27/24 10:00 06/29/24 12:22 10 MG Heparin Sodium (Porcine) 2,300 units AMANDA PRN IV 06/26/24 15:30 Cancel Acetaminophen/ Hydrocodone Bitart 1 tab Q6HPRN PRN PO 06/26/24 22:30 07/01/24 20:42 1 TAB Morphine Sulfate 2 mg Q4HPRN PRN IV 06/27/24 00:45 07/01/24 22:11 2 MG Nifedipine 90 mg DAILY PO 06/28/24 10:00 07/02/24 10:18 90 MG Fluconazole 100 mg HS PO 06/27/24 22:00 07/01/24 22:04 100 MG Lorazepam 1 mg Q6HP PRN IV 07/01/24 11:15 07/02/24 05:24 1 MG Laboratory Results Laboratory Tests 07/01/24 10:18 07/02/24 09:33 Urinalysis Test 06/11/24 03:00 Urine Color Light-yellow (Yellow) Urine Clarity Turbid (Clear) H Urine pH 8.0 (5.0-9.0) Urine Specific [place] 1.008 (1.001-1.035) Urine Protein 3+ (Negative) H Urine Ketones Negative (Negative) Urine Blood Negative /uL (Negative) Urine Nitrite Negative (Negative) Urine Bilirubin Negative (Negative) Urine Urobilinogen Normal mg/dL (Negative) Urine Leukocyte Esterase 1+ /uL (Negative) Urine RBC 10 /hpf (0 - 4) Urine Microscopic WBC 41 /HPF (0-5) H Urine Squamous Epithelial Cells Mod /hpf (<5) Urine Bacteria None seen /hpf (None Seen) Urine Glucose 2+ mg/dL (Normal) H Microbiology Microbiology Date/Time Source Procedure Growth Status 06/13/24 08:45 Nose MRSA Screen - Final Complete 06/11/24 23:55 Blood Blood Culture - Final NO GROWTH AFTER 5 DAYS OF INCUBATION. Complete Assessment/Plan Assessment/Plan 63-year-old female with a known history of hypertension, dyslipidemia, coronary artery disease, anxiety disorder, recent mechanical fall found to have acute small T12 compression fracture, L3-4 lumbar diskitis presented to the hospital with right-sided weakness altered mental status eventually intubated in the ER for airway protection. Patient was found to have acute/subacute left frontal and temporal infarct currently MRI brain is pending. 1. Acute hypoxic respiratory failure requiring intubation with mechanical ventilation secondary to metabolic encephalopathy , extubated on 06/25 2. Metabolic encephalopathy ruled in acute CVA 3.Subacute CVA with the left frontal and temporal infarct, MRI brain shows no evidence of acute infarct 4. Hypertensive emergency with the end-organ involvement , off the nicardipine drip 5. End-stage renal disease on hemodialysis received hemodialysis 6. Coronary artery disease 7. L3-4 lumbar diskitis/osteomyelitis, resume IV vancomycin and consult infectious disease specialist 8. Physical deconditioning 9. 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 -patient is still has one-to-one sitter. Plan discussed with: Patient My Orders Orders - BENJA ROBBINS MD Procedure Category Date Status Time * [employer] CONS 07/01/24 Transmitted Consult Date of Service: July 02, 2024 Billing Provider: BENJA ROBBINS MD Common Visit Codes: NOT BILLABLE BENJA ROBBINS MD July 02, 2024 15:15
--- NOTE | 2024-07-02 16:33 | DVHPN2 ---
Progress Note - Dictate Date Seen: July 02, 2024 Medical Necessity Reason Pt with a Central, PICC or Fol: Yes The following are medically ne: Eagle Catheter Reason for eagle catheter: Strict I&O Subjective Patient was seen and evaluated in follow up. Sitter is at bedside. Sitter reports patient attempts to get out of bed and needs redirection. 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 Patient is agreeable with SNF placement. WBC 2.8, HGB 9.4, HCT 28.3, DEBATE DIRECTOR 4.13. Telemetry reviewed. vital signs Vital Sign Date Time Temp Pulse Resp B/P (MAP) Pulse Ox O2 Delivery O2 Flow Rate FiO2 07/02/24 11:18 78 133/42 07/02/24 09:07 98.0 20 99 98.0 07/02/24 08:00 Nasal Cannula* 4 36 Total Intake and Output 07/01/24 07/01/24 07/02/24 15:00 23:00 07:00 Intake Total 50 ml 200 ml 352 ml Output Total 0 ml 0 ml Balance 50 ml 200 ml 352 ml medications Current Medications Medications Dose Ordered Sig/Eric Route Start Time Stop Time Status Last Admin Dose Admin Ondansetron HCl 4 mg Q4HP PRN IV 06/11/24 02:00 Nitroglycerin 0.4 mg Q5MINP PRN SL 06/11/24 02:00 Albuterol 2.5 mg Q4HPRN PRN NEB 06/11/24 02:00 06/29/24 21:59 2.5 MG Ipratropium [place] 0.5 mg Q4HPRN PRN NEB 06/11/24 02:00 06/29/24 21:59 0.5 MG Ceftriaxone Sodium 50 ml @ 100 mls/hr DAILY@09 IV 06/13/24 09:00 07/02/24 09:02 100 MLS/HR Acetaminophen 650 mg Q6HP PRN GT 06/11/24 23:45 06/12/24 02:48 650 MG Nicardipine HCl 250 ml @ 50 mls/hr Q5H IV 06/13/24 14:45 UNV Hydralazine HCl 10 mg Q6HPRN PRN IV 06/17/24 00:00 07/01/24 17:42 10 MG Dopamine HCl/ Dextrose 250 ml @ 15.544 mls/ hr Q16H5M IV 06/21/24 11:00 UNV Metoprolol Tartrate 50 mg BID PO 06/23/24 22:00 07/02/24 10:18 50 MG Amlodipine Besylate 10 mg DAILY PO 06/24/24 10:00 07/02/24 10:19 10 MG Vancomycin HCl 0 ml @ 0 mls/hr UD IV 06/23/24 20:45 Clonidine HCl 0.2 mg Q7D TD 06/25/24 14:30 06/25/24 16:35 0.2 MG Famotidine 10 mg EOD PO 06/27/24 10:00 06/29/24 12:22 10 MG Heparin Sodium (Porcine) 2,300 units AMANDA PRN IV 06/26/24 15:30 Cancel Acetaminophen/ Hydrocodone Bitart 1 tab Q6HPRN PRN PO 06/26/24 22:30 07/01/24 20:42 1 TAB Morphine Sulfate 2 mg Q4HPRN PRN IV 06/27/24 00:45 07/01/24 22:11 2 MG Nifedipine 90 mg DAILY PO 06/28/24 10:00 07/02/24 10:18 90 MG Fluconazole 100 mg HS PO 06/27/24 22:00 07/01/24 22:04 100 MG Lorazepam 1 mg Q6HP PRN IV 07/01/24 11:15 07/02/24 05:24 1 MG objective GENERAL: Alert and oriented x 3. No acute distress. EYES: PERRL, EOMI. Anicteric. HENT: Moist mucous membranes. LUNGS: Decreased breath sounds. CARDIOVASCULAR: Regular rate and rhythm. ABDOMEN: Soft, nontender and nondistended. EXTREMITIES: No edema. NEUROLOGIC: No focal neurological deficits. SKIN: Warm, dry. laboratory and microbiology Laboratory Tests 07/02/24 09:33 07/01/24 10:18 Test 07/01/24 10:18 Range/Units Serum Glucose 92 74-106 mg/dL Problem List Acute CVA. Hypertensive emergency. Questionable coronary artery disease. Moderate pericardial effusion. Acute hypoxic respiratory failure. End-stage renal disease on hemodialysis. History of T12 compression fracture. Assessment/Plan Continued all current supportive medical care. Morphine and [place] for pain management. Amlodipine, Clonidine, Nifedipine. IV antibiotics as ordered. IV Hydralazine for SBP >160. Metoprolol. GI prophylactics. Additional plan as per the hospital course. Dietary Evaluation Review Comments: 1) If patient remains NPO > 7 days, consider EN/TPN to meet at least 75% estimated needs 2) If GI route is preferred, consider Nepro @ 25 mL/hr goal rate as tolerated. EN regimen will provide 1080 kcals, 49g Pro, and 447 mL free H2O per 24 hrs. EN regimen will meet ~90% estimated daily energy needs and ~47% estimated daily protein needs 3) Initiate Nephro-Susan @ 1 tb qd 4) Advance to 60g [facility] renal standard diet when medically feasible, pending BICYCLE [employer]ACER approval 5) Follow-up with nephrology, cardiology, and pulmonology 6) Continue to monitor I&O, labs, and skin integrity Expected Outcomes/Goals: 1) patient to receive nutrition support within 7 days of NPO status 2) labs to improve 3) wound to improve 4) patient to be extubated and diet to advance 5) f/u in 2-3 days Plan discussed with: Patient SHAUN RAMOS MD July 02, 2024 14:48
--- NOTE | 2024-07-02 21:10 | DVHPN2 ---
Progress Note - Dictate Date Seen: July 02, 2024 Medical Necessity Reason Pt with a Central, PICC or Fol: Yes The following are medically ne: Eagle Catheter Reason for eagle catheter: Strict I&O Subjective Patient seen and examined at bedside. On supplemental oxygen Overnight events reviewed. vital signs Vital Sign Date Time Temp Pulse Resp B/P (MAP) Pulse Ox O2 Delivery O2 Flow Rate FiO2 07/02/24 17:10 98.2 82 20 151/54 (86) 97 98.2 07/02/24 08:00 Nasal Cannula* 4 36 Total Intake and Output 07/01/24 07/01/24 07/02/24 15:00 23:00 07:00 Intake Total 50 ml 200 ml 352 ml Output Total 0 ml 0 ml Balance 50 ml 200 ml 352 ml medications Current Medications Medications Dose Ordered Sig/Eric Route Start Time Stop Time Status Last Admin Dose Admin Ondansetron HCl 4 mg Q4HP PRN IV 06/11/24 02:00 Nitroglycerin 0.4 mg Q5MINP PRN SL 06/11/24 02:00 Albuterol 2.5 mg Q4HPRN PRN NEB 06/11/24 02:00 06/29/24 21:59 2.5 MG Ipratropium [place] 0.5 mg Q4HPRN PRN NEB 06/11/24 02:00 06/29/24 21:59 0.5 MG Acetaminophen 650 mg Q6HP PRN GT 06/11/24 23:45 06/12/24 02:48 650 MG Nicardipine HCl 250 ml @ 50 mls/hr Q5H IV 06/13/24 14:45 UNV Hydralazine HCl 10 mg Q6HPRN PRN IV 06/17/24 00:00 07/01/24 17:42 10 MG Dopamine HCl/ Dextrose 250 ml @ 15.544 mls/ hr Q16H5M IV 06/21/24 11:00 UNV Metoprolol Tartrate 50 mg BID PO 06/23/24 22:00 07/02/24 10:18 50 MG Amlodipine Besylate 10 mg DAILY PO 06/24/24 10:00 07/02/24 10:19 10 MG Vancomycin HCl 0 ml @ 0 mls/hr UD IV 06/23/24 20:45 Clonidine HCl 0.2 mg Q7D TD 06/25/24 14:30 07/02/24 14:56 0.2 MG Famotidine 10 mg EOD PO 06/27/24 10:00 06/29/24 12:22 10 MG Heparin Sodium (Porcine) 2,300 units AMANDA PRN IV 06/26/24 15:30 Cancel Acetaminophen/ Hydrocodone Bitart 1 tab Q6HPRN PRN PO 06/26/24 22:30 07/01/24 20:42 1 TAB Morphine Sulfate 2 mg Q4HPRN PRN IV 06/27/24 00:45 07/01/24 22:11 2 MG Nifedipine 90 mg DAILY PO 06/28/24 10:00 07/02/24 10:18 90 MG Fluconazole 100 mg HS PO 06/27/24 22:00 07/01/24 22:04 100 MG Lorazepam 1 mg Q6HP PRN IV 07/01/24 11:15 07/02/24 05:24 1 MG objective Gen.: Patient lying in bed in no apparent distress. On supplemental oxygen Head: Normocephalic, atraumatic. Eyes: EOMI/PERRLA. Ears: Normal hearing. Normal anatomy. Neck/trachea: Trachea midline, supple. Nose: Normal external anatomy. Mouth: Moist mucous membranes. Chest: Decreased air entry bilaterally. No wheezing or rhonchi. Cardiovascular: Positive S1, positive S2. Regular rate and rhythm. Abdomen: Positive bowel sounds in all 4 quadrants. Soft, non-tender, non- distended. : Deferred. Rectal: Deferred. Skin: Warm, dry. Intact. Extremities: 2+ radial pulses bilaterally. No lower extremity edema. Neuro: Awake, alert, oriented x3. No gross motor or sensory deficits. Cranial nerves II through XII intact. Gait not assessed laboratory and microbiology Laboratory Tests 07/02/24 09:33 07/01/24 10:18 Test 07/01/24 10:18 Range/Units Serum Glucose 92 74-106 mg/dL Assessment/Plan Impression: Acute hypoxic respiratory failure Acute CVA Acute encephalopathy ESRD, on hemodialysis Pulmonary edema Shock Obesity BMI 33.3 Events: Remains on supplemental oxygen On 4 LPM NC Taper O2 as tolerated Status post hemodialysis yesterday - 3 liters removed. Head of bed elevation Aspiration precautions Incentive spirometry Continue antibiotics WBC trending down, 2.8 k Monitor hemoglobin, 9.4 g/dL. Trending up. Monitor platelets, trending down. HD per Nephrology Monitor renal function, creat trending down. Monitor electrolytes. Supplement as necessary. Monitor ins and outs. Off gabapentin Monitor respiratory status closely Disposition per hospitalist. Labs and imaging reviewed Plan: S/p extubation Supplemental oxygen Titrate to keep O2 sats above 92%. Monitor blood pressure Continue antibiotics. F/u cultures. Bronchodilators PRN Accu-Cheks, ISS Echo reviewed Cardiology recs appreciated Pressors as necessary for hemodynamic support Titrate to keep mean arterial pressure greater than 65 mmHg. HD per Nephrology Monitor renal function Monitor electrolytes. Supplement as necessary. Monitor ins and outs. Maintain euvolemia. GI prophylaxis. DVT prophylaxis. Prognosis: Poor given patient's multiple co-morbidities. Rest of plan per hospitalist and other consultants. Thank you, UX DEVELOPER Jose, for allowing me to participate in this patient's care. Further recommendations will depend on the patient's clinical course. Please do not hesitate to contact me if you have any questions or concerns. This medical document was created using an electronic medical record system with [employer] dictation system. Although these documentations are being carefully reviewed, there may still be some phonetic and typographical changes. The errors are purely typographical, due to imperfection on the software program, and do not reflect any compromise in the patient's medical care. Dietary Evaluation Review Comments: 1) If patient remains NPO > 7 days, consider EN/TPN to meet at least 75% estimated needs 2) If GI route is preferred, consider Nepro @ 25 mL/hr goal rate as tolerated. EN regimen will provide 1080 kcals, 49g Pro, and 447 mL free H2O per 24 hrs. EN regimen will meet ~90% estimated daily energy needs and ~47% estimated daily protein needs 3) Initiate Nephro-Susan @ 1 tb qd 4) Advance to 60g [facility] renal standard diet when medically feasible, pending [employer] CONSULTANT approval 5) Follow-up with nephrology, cardiology, and pulmonology 6) Continue to monitor I&O, labs, and skin integrity Expected Outcomes/Goals: 1) patient to receive nutrition support within 7 days of NPO status 2) labs to improve 3) wound to improve 4) patient to be extubated and diet to advance 5) f/u in 2-3 days Plan discussed with: Patient, Other (DAVID Lafleur) NAE BELLAMY MD July 02, 2024 21:10
[2024-07-02] MEDS: VANCOMYCIN 500mg/100mL 100 ML IV ONE (22:37)
[2024-07-03] VITALS (11 sets, daily range): BP systolic 114–157; BP diastolic 48–95; PULSE 63–89; RESP 16–22; TEMP 97.2–98.7; O2SAT 95–99
[2024-07-03] MEDS ORDERED: SODIUM CHL 0.9% 1000 ML BAG XX ONE (07:00)
[2024-07-03 07:17] LABS: Basophils # (auto) 0 10 ^3/uL (0-0.2); Basophils % (auto) 0.6 % (0.0-2.0); Eosinophils # (auto) 0.1 10 ^3/uL (0-0.8); Hemoglobin 8.1 g/dL (12.2-16.2); Lymphocytes # (auto) 0.8 10 ^3/uL (0.4-5.4); Monocytes # (auto) 0.3 10 ^3/uL (0-1.3); Neutrophils # (auto) 1.8 10 ^3/uL (1.6-8.6)
[2024-07-03 07:20] LABS: Eosinophils % (auto) 3.2 % (0.0-7.0); Hematocrit 24.3 % (36.0-46.0); Lymphocytes % (auto) 26.6 % (10.0-50.0); Mean Corpuscular Hemoglobin 29.5 pg (28.0-32.0); Mean Corpuscular Hgb Conc. 33.1 g/dL (32.0-36.0); Mean Corpuscular Volume 89.2 fL (80.0-100.0); Monocytes % (auto) 9.6 % (0.0-12.0); Nucleated Red Blood Cells % 0.2 %; Platelet Count (auto) 101 10^3/uL (140-450); Red Blood Cells 2.73 10^6/uL (4.0-5.20); Red Cell Distribution Width 18.6 % (11.8-14.3); White Blood Cell 3.1 10^3/uL (4.4-10.8)
--- NOTE | 2024-07-03 13:05 | DVHPN2 ---
Progress Note - Dictate Date Seen: July 03, 2024 Medical Necessity Reason Pt with a Central, PICC or Fol: Yes The following are medically ne: Eagle Catheter Reason for eagle catheter: Strict I&O Subjective Still fluctuant mental status. Patient downgraded to tele bed. Patient is agreeable with SNF placement. S/P extubation on 06/25. vital signs Vital Sign Date Time Temp Pulse Resp B/P (MAP) Pulse Ox O2 Delivery O2 Flow Rate FiO2 07/03/24 10:32 74 130/60 07/03/24 09:53 97.6 20 97 97.6 07/02/24 20:00 Nasal Cannula* 4 36 Total Intake and Output 07/02/24 07/02/24 07/03/24 15:00 23:00 07:00 Intake Total 50 ml 660 ml 400 ml Balance 50 ml 660 ml 400 ml medications Current Medications Medications Dose Ordered Sig/Eric Route Start Time Stop Time Status Last Admin Dose Admin Ondansetron HCl 4 mg Q4HP PRN IV 06/11/24 02:00 Nitroglycerin 0.4 mg Q5MINP PRN SL 06/11/24 02:00 Albuterol 2.5 mg Q4HPRN PRN NEB 06/11/24 02:00 06/29/24 21:59 2.5 MG Ipratropium [place] 0.5 mg Q4HPRN PRN NEB 06/11/24 02:00 06/29/24 21:59 0.5 MG Acetaminophen 650 mg Q6HP PRN GT 06/11/24 23:45 06/12/24 02:48 650 MG Nicardipine HCl 250 ml @ 50 mls/hr Q5H IV 06/13/24 14:45 UNV Hydralazine HCl 10 mg Q6HPRN PRN IV 06/17/24 00:00 07/01/24 17:42 10 MG Dopamine HCl/ Dextrose 250 ml @ 15.544 mls/ hr Q16H5M IV 06/21/24 11:00 UNV Metoprolol Tartrate 50 mg BID PO 06/23/24 22:00 07/03/24 10:32 50 MG Amlodipine Besylate 10 mg DAILY PO 06/24/24 10:00 07/03/24 10:31 10 MG Vancomycin HCl 0 ml @ 0 mls/hr UD IV 06/23/24 20:45 Clonidine HCl 0.2 mg Q7D TD 06/25/24 14:30 07/02/24 14:56 0.2 MG Famotidine 10 mg EOD PO 06/27/24 10:00 07/03/24 10:32 10 MG Heparin Sodium (Porcine) 2,300 units AMANDA PRN IV 06/26/24 15:30 Cancel Acetaminophen/ Hydrocodone Bitart 1 tab Q6HPRN PRN PO 06/26/24 22:30 07/01/24 20:42 1 TAB Morphine Sulfate 2 mg Q4HPRN PRN IV 06/27/24 00:45 07/01/24 22:11 2 MG Nifedipine 90 mg DAILY PO 06/28/24 10:00 07/03/24 10:30 90 MG Fluconazole 100 mg HS PO 06/27/24 22:00 07/02/24 22:37 100 MG Lorazepam 1 mg Q6HP PRN IV 07/01/24 11:15 07/02/24 05:24 1 MG objective General Appearance: normal, calm HEENT: normal Respiratory: good air entry Cardiovascular: Regular rate, Normal S1, Normal S2 Abdominal: Normal bowel sounds, Soft, No tenderness Extremities: Other (BLE pitting edema 2+) Skin: No rashes Neuro: grossly intact laboratory and microbiology Laboratory Tests 07/03/24 06:38 07/01/24 10:18 Test 07/01/24 10:18 Range/Units Serum Glucose 92 74-106 mg/dL Assessment/Plan Patient is a 63-year-old female presents to the hospital with: Leucopenia Vertebral Discitis subacute CVA Acute encephalopathy Acute hypoxic respiratory S/P intubation on mechanical ventilator ESRD on HD Fluid overload Hypertensive emergency Hx T12 compression fracture Recommendations: S/P Extubation on 06/25, downgraded to tele sitter+ MRI lumbar spine done 06/19 is wo contrast which is not very ideal for infection. there is no comment about discitis or phlegmon. however, MRI in [facility] on 05/22 commented about discitis. would consider resuming and completing the course for now since she already has been on antibiotics since 05/22. tagged wbc scan may be a better study since she on HD, mri w contrast might be difficult. recommend 6 weeks of IV Vancomycin/ Ceftriaxone from 06/11. closely monitor cbc follow up out pt with Dr Carlisle. reviewed [facility] records in detail: She had low wbc from 03/23/2024 with 3.4 with intermittent 1.8 and she has been admitted 2-3 times and wbc is in same range. no work up done She had mri spine with on 05/22 shows hypointense T1 and hyperintense T2 at L3-L4 concerning for discitis osteomyelitis. Hyperintense T2 signal along epidural space L3-L4 for 5mm AP diameter concerning for Phlegmon. ID Dr Carlisle saw the patient and recommended IV Vancomycin for 6 weeks. There is no positive blood cultures or biopsy done. His notes on 05/23 recommended 6 weeks of IV vancomycin ( switched from ceftriaxone for low wbc). since leucopenia was present in prior admissions too, its unlikely due to Vancomycin discussed with nephrology, reviewed old labs, back in 2022 also her wbc was in 3k. unsure if she had work up done platelets were in 200 in 2023 but later its been low too MRI showed Severe spinal canal stenosis with severe bilateral lateral recess narrowing at L3-L4. Severe bilateral neural foramina stenosis at L3-L4 with moderate right and severe left-sided neural foramina stenosis at L4-L5. Grade 1 anterolisthesis of L4 on L5. 07/02, Vancomycin Random is 16.6 Antibiotic status: Ceftriaxone IV [Started on 06/11 - Ongoing] Vancomycin IV [Restarted on 06/23 - Ongoing] Prognosis guarded due multiple co morbidities Discussed with Dr Mccollum Thank you for consult. Dietary Evaluation Review Comments: 1) If patient remains NPO > 7 days, consider EN/TPN to meet at least 75% estimated needs 2) If GI route is preferred, consider Nepro @ 25 mL/hr goal rate as tolerated. EN regimen will provide 1080 kcals, 49g Pro, and 447 mL free H2O per 24 hrs. EN regimen will meet ~90% estimated daily energy needs and ~47% estimated daily protein needs 3) Initiate Nephro-Susan @ 1 tb qd 4) [facility] diet when medically feasible, pending [facility] approval 5) Follow-up with nephrology, cardiology, and pulmonology 6) Continue to monitor I&O, labs, and skin integrity Expected Outcomes/Goals: 1) patient to receive nutrition support within 7 days of NPO status 2) labs to improve 3) wound to improve 4) patient to be extubated and diet to advance 5) f/u in 2-3 days GONZÁLEZ BAUER MD July 03, 2024 13:05
--- NOTE | 2024-07-03 14:06 | DVHPN2 ---
Progress Note - Dictate Date Seen: July 03, 2024 Medical Necessity Reason Pt with a Central, PICC or Fol: Yes The following are medically ne: Eagle Catheter Reason for eagle catheter: Strict I&O Subjective No new complaints vital signs Vital Sign Date Time Temp Pulse Resp B/P (MAP) Pulse Ox O2 Delivery O2 Flow Rate FiO2 07/03/24 11:32 63 122/56 07/03/24 09:53 97.6 20 97 97.6 07/03/24 08:00 Nasal Cannula* 4 36 Total Intake and Output 07/02/24 07/02/24 07/03/24 15:00 23:00 07:00 Intake Total 50 ml 660 ml 400 ml Balance 50 ml 660 ml 400 ml medications Current Medications Medications Dose Ordered Sig/Eric Route Start Time Stop Time Status Last Admin Dose Admin Ondansetron HCl 4 mg Q4HP PRN IV 06/11/24 02:00 Nitroglycerin 0.4 mg Q5MINP PRN SL 06/11/24 02:00 Albuterol 2.5 mg Q4HPRN PRN NEB 06/11/24 02:00 06/29/24 21:59 2.5 MG Ipratropium [place] 0.5 mg Q4HPRN PRN NEB 06/11/24 02:00 06/29/24 21:59 0.5 MG Acetaminophen 650 mg Q6HP PRN GT 06/11/24 23:45 06/12/24 02:48 650 MG Nicardipine HCl 250 ml @ 50 mls/hr Q5H IV 06/13/24 14:45 UNV Hydralazine HCl 10 mg Q6HPRN PRN IV 06/17/24 00:00 07/01/24 17:42 10 MG Dopamine HCl/ Dextrose 250 ml @ 15.544 mls/ hr Q16H5M IV 06/21/24 11:00 UNV Metoprolol Tartrate 50 mg BID PO 06/23/24 22:00 07/03/24 10:32 50 MG Amlodipine Besylate 10 mg DAILY PO 06/24/24 10:00 07/03/24 10:31 10 MG Vancomycin HCl 0 ml @ 0 mls/hr UD IV 06/23/24 20:45 Clonidine HCl 0.2 mg Q7D TD 06/25/24 14:30 07/02/24 14:56 0.2 MG Famotidine 10 mg EOD PO 06/27/24 10:00 07/03/24 10:32 10 MG Heparin Sodium (Porcine) 2,300 units AMANDA PRN IV 06/26/24 15:30 Cancel Acetaminophen/ Hydrocodone Bitart 1 tab Q6HPRN PRN PO 06/26/24 22:30 07/01/24 20:42 1 TAB Morphine Sulfate 2 mg Q4HPRN PRN IV 06/27/24 00:45 07/01/24 22:11 2 MG Nifedipine 90 mg DAILY PO 06/28/24 10:00 07/03/24 10:30 90 MG Fluconazole 100 mg HS PO 06/27/24 22:00 07/02/24 22:37 100 MG Lorazepam 1 mg Q6HP PRN IV 07/01/24 11:15 07/02/24 05:24 1 MG objective More awake Lungs Diminished air entry at bases CV:: RR, no pericardial rub Abdomen: soft, mildly distended, low BS Trace edema of legs laboratory and microbiology Laboratory Tests 07/03/24 06:38 07/01/24 10:18 Test 07/01/24 10:18 Range/Units Serum Glucose 92 74-106 mg/dL Problem List End-stage renal disease on HD Anemia of renal disease. Pneumonia Acute hypoxic Respiratory failure, s/p extubation Subacute stroke. T-spine fracture Plan: Getting HD today UF goal 2 L Fluid restriction less than 1 L per day On metoprolol and amlodipine ANANTH post HD as needed, goal Hb: 10-11 g/dl Preparing for transfer to SNF Dietary Evaluation Review Comments: 1) If patient remains NPO > 7 days, consider EN/TPN to meet at least 75% estimated needs 2) If GI route is preferred, consider Nepro @ 25 mL/hr goal rate as tolerated. EN regimen will provide 1080 kcals, 49g Pro, and 447 mL free H2O per 24 hrs. EN regimen will meet ~90% estimated daily energy needs and ~47% estimated daily protein needs 3) Initiate Nephro-Susan @ 1 tb qd 4) Advance to 60g CCHO renal standard diet when medically feasible, pending [facility] approval 5) Follow-up with nephrology, cardiology, and pulmonology 6) Continue to monitor I&O, labs, and skin integrity Expected Outcomes/Goals: 1) patient to receive nutrition support within 7 days of NPO status 2) labs to improve 3) wound to improve 4) patient to be extubated and diet to advance 5) f/u in 2-3 days Plan discussed with: Other STEFANIE SAMUEL MD July 03, 2024 14:06
--- NOTE | 2024-07-03 14:54 | DVHPN2 ---
Progress Note - Dictate Date Seen: July 03, 2024 Medical Necessity Reason Pt with a Central, PICC or Fol: Yes The following are medically ne: Eagle Catheter Reason for eagle catheter: Strict I&O Subjective Patient was seen and evaluated in follow up. No overnight events. Sitter is at bedside. Patient is confused. WBC 3.1, HGB 8.1, HCT 24.3, LACQUER MIXER 5.21. Telemetry reviewed. vital signs Vital Sign Date Time Temp Pulse Resp B/P (MAP) Pulse Ox O2 Delivery O2 Flow Rate FiO2 07/03/24 10:32 74 130/60 07/03/24 09:53 97.6 20 97 97.6 07/02/24 20:00 Nasal Cannula* 4 36 Total Intake and Output 07/02/24 07/02/24 07/03/24 15:00 23:00 07:00 Intake Total 50 ml 660 ml 400 ml Balance 50 ml 660 ml 400 ml medications Current Medications Medications Dose Ordered Sig/Eric Route Start Time Stop Time Status Last Admin Dose Admin Ondansetron HCl 4 mg Q4HP PRN IV 06/11/24 02:00 Nitroglycerin 0.4 mg Q5MINP PRN SL 06/11/24 02:00 Albuterol 2.5 mg Q4HPRN PRN NEB 06/11/24 02:00 06/29/24 21:59 2.5 MG Ipratropium [place] 0.5 mg Q4HPRN PRN NEB 06/11/24 02:00 06/29/24 21:59 0.5 MG Acetaminophen 650 mg Q6HP PRN GT 06/11/24 23:45 06/12/24 02:48 650 MG Nicardipine HCl 250 ml @ 50 mls/hr Q5H IV 06/13/24 14:45 UNV Hydralazine HCl 10 mg Q6HPRN PRN IV 06/17/24 00:00 07/01/24 17:42 10 MG Dopamine HCl/ Dextrose 250 ml @ 15.544 mls/ hr Q16H5M IV 06/21/24 11:00 UNV Metoprolol Tartrate 50 mg BID PO 06/23/24 22:00 07/03/24 10:32 50 MG Amlodipine Besylate 10 mg DAILY PO 06/24/24 10:00 07/03/24 10:31 10 MG Vancomycin HCl 0 ml @ 0 mls/hr UD IV 06/23/24 20:45 Clonidine HCl 0.2 mg Q7D TD 06/25/24 14:30 07/02/24 14:56 0.2 MG Famotidine 10 mg EOD PO 06/27/24 10:00 07/03/24 10:32 10 MG Heparin Sodium (Porcine) 2,300 units AMANDA PRN IV 06/26/24 15:30 Cancel Acetaminophen/ Hydrocodone Bitart 1 tab Q6HPRN PRN PO 06/26/24 22:30 07/01/24 20:42 1 TAB Morphine Sulfate 2 mg Q4HPRN PRN IV 06/27/24 00:45 07/01/24 22:11 2 MG Nifedipine 90 mg DAILY PO 06/28/24 10:00 07/03/24 10:30 90 MG Fluconazole 100 mg HS PO 06/27/24 22:00 07/02/24 22:37 100 MG Lorazepam 1 mg Q6HP PRN IV 07/01/24 11:15 07/02/24 05:24 1 MG objective GENERAL: Alert and oriented x 3. No acute distress. EYES: PERRL, EOMI. Anicteric. HENT: Moist mucous membranes. LUNGS: Decreased breath sounds. CARDIOVASCULAR: Regular rate and rhythm. ABDOMEN: Soft, nontender and nondistended. EXTREMITIES: No edema. NEUROLOGIC: No focal neurological deficits. SKIN: Warm, dry. laboratory and microbiology Laboratory Tests 07/03/24 06:38 07/01/24 10:18 Test 07/01/24 10:18 Range/Units Serum Glucose 92 74-106 mg/dL Problem List Acute CVA. Hypertensive emergency. Questionable coronary artery disease. Moderate pericardial effusion. Acute hypoxic respiratory failure. End-stage renal disease on hemodialysis. History of T12 compression fracture. Assessment/Plan Continued all current supportive medical care. Morphine and [place] for pain management. Amlodipine, Clonidine, Nifedipine. IV antibiotics as ordered. IV Hydralazine for SBP >160. Metoprolol. Additional plan as per the hospital course. Dietary Evaluation Review Comments: 1) If patient remains NPO > 7 days, consider EN/TPN to meet at least 75% estimated needs 2) If GI route is preferred, consider Nepro @ 25 mL/hr goal rate as tolerated. EN regimen will provide 1080 kcals, 49g Pro, and 447 mL free H2O per 24 hrs. EN regimen will meet ~90% estimated daily energy needs and ~47% estimated daily protein needs 3) Initiate Nephro-Susan @ 1 tb qd 4) Advance to 60g [facility] renal standard diet when medically feasible, pending [facility] approval 5) Follow-up with nephrology, cardiology, and pulmonology 6) Continue to monitor I&O, labs, and skin integrity Expected Outcomes/Goals: 1) patient to receive nutrition support within 7 days of NPO status 2) labs to improve 3) wound to improve 4) patient to be extubated and diet to advance 5) f/u in 2-3 days Plan discussed with: Other SHAUN RAMOS MD July 03, 2024 12:04
--- NOTE | 2024-07-03 16:05 | DVHPN2 ---
Subjective The patient is still fluctuant mental status, still has 1-1 sitter. Reviewed: Care Plan Changes from previous H/P or p: No Changes Objective Vitals Vital Signs Date Time Temp Pulse Resp B/P (MAP) Pulse Ox O2 Delivery O2 Flow Rate FiO2 07/03/24 13:00 97.7 63 20 122/56 (78) 99 97.7 07/03/24 08:00 Nasal Cannula* 4 36 Intake/Output Intake and Output 07/03/24 07:00 Intake Total 1110 ml Balance 1110 ml Intake Oral 960 ml IV Total 150 ml # Voids 2 # Bowel Movements 2 Exam HEENT pupils are reactive , brisk reaction somewhat unequal. 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 Medications Current Medications Medications Dose Ordered Sig/Eric Route Start Time Stop Time Status Last Admin Dose Admin Ondansetron HCl 4 mg Q4HP PRN IV 06/11/24 02:00 Nitroglycerin 0.4 mg Q5MINP PRN SL 06/11/24 02:00 Albuterol 2.5 mg Q4HPRN PRN NEB 06/11/24 02:00 06/29/24 21:59 2.5 MG Ipratropium [place] 0.5 mg Q4HPRN PRN NEB 06/11/24 02:00 06/29/24 21:59 0.5 MG Acetaminophen 650 mg Q6HP PRN GT 06/11/24 23:45 06/12/24 02:48 650 MG Nicardipine HCl 250 ml @ 50 mls/hr Q5H IV 06/13/24 14:45 UNV Hydralazine HCl 10 mg Q6HPRN PRN IV 06/17/24 00:00 07/01/24 17:42 10 MG Dopamine HCl/ Dextrose 250 ml @ 15.544 mls/ hr Q16H5M IV 06/21/24 11:00 UNV Metoprolol Tartrate 50 mg BID PO 06/23/24 22:00 07/03/24 10:32 50 MG Amlodipine Besylate 10 mg DAILY PO 06/24/24 10:00 07/03/24 10:31 10 MG Vancomycin HCl 0 ml @ 0 mls/hr UD IV 06/23/24 20:45 Clonidine HCl 0.2 mg Q7D TD 06/25/24 14:30 07/02/24 14:56 0.2 MG Famotidine 10 mg EOD PO 06/27/24 10:00 07/03/24 10:32 10 MG Heparin Sodium (Porcine) 2,300 units AMANDA PRN IV 06/26/24 15:30 Cancel Acetaminophen/ Hydrocodone Bitart 1 tab Q6HPRN PRN PO 06/26/24 22:30 07/01/24 20:42 1 TAB Morphine Sulfate 2 mg Q4HPRN PRN IV 06/27/24 00:45 07/01/24 22:11 2 MG Nifedipine 90 mg DAILY PO 06/28/24 10:00 07/03/24 10:30 90 MG Fluconazole 100 mg HS PO 06/27/24 22:00 07/02/24 22:37 100 MG Lorazepam 1 mg Q6HP PRN IV 07/01/24 11:15 07/02/24 05:24 1 MG Laboratory Results Laboratory Tests 07/01/24 10:18 07/03/24 06:38 Urinalysis Test 06/11/24 03:00 Urine Color Light-yellow (Yellow) Urine Clarity Turbid (Clear) H Urine pH 8.0 (5.0-9.0) Urine Specific [place] 1.008 (1.001-1.035) Urine Protein 3+ (Negative) H Urine Ketones Negative (Negative) Urine Blood Negative /uL (Negative) Urine Nitrite Negative (Negative) Urine Bilirubin Negative (Negative) Urine Urobilinogen Normal mg/dL (Negative) Urine Leukocyte Esterase 1+ /uL (Negative) Urine RBC 10 /hpf (0 - 4) Urine Microscopic WBC 41 /HPF (0-5) H Urine Squamous Epithelial Cells Mod /hpf (<5) Urine Bacteria None seen /hpf (None Seen) Urine Glucose 2+ mg/dL (Normal) H Microbiology Microbiology Date/Time Source Procedure Growth Status 06/13/24 08:45 Nose MRSA Screen - Final Complete 06/11/24 23:55 Blood Blood Culture - Final NO GROWTH AFTER 5 DAYS OF INCUBATION. Complete Assessment/Plan Assessment/Plan 63-year-old female with a known history of hypertension, dyslipidemia, coronary artery disease, anxiety disorder, recent mechanical fall found to have acute small T12 compression fracture, L3-4 lumbar diskitis presented to the hospital with right-sided weakness altered mental status eventually intubated in the ER for airway protection. Patient was found to have acute/subacute left frontal and temporal infarct currently MRI brain is pending. 1. Acute hypoxic respiratory failure requiring intubation with mechanical ventilation secondary to metabolic encephalopathy , extubated on 06/25 2. Metabolic encephalopathy ruled in acute CVA 3.Subacute CVA with the left frontal and temporal infarct, MRI brain shows no evidence of acute infarct 4. Hypertensive emergency with the end-organ involvement , off the nicardipine drip 5. End-stage renal disease on hemodialysis 6. Coronary artery disease 7. L3-4 lumbar diskitis/osteomyelitis, resume IV vancomycin and consult infectious disease specialist 8. Physical deconditioning 9. Anisocoria, repeat head CT shows no evidence of any acute pathology besides old left frontal /parietal infarct -DELIVERY ASSOCIATE CONSULTATION FOR PLACEMENT TO LONG-TERM FACILITY Continue O2 supplementation -physical therapy evaluation and treatment, diet as tolerated, can downgraded to telemetry with a sitter. -patient is still has one-to-one sitter. Plan discussed with: Other Date of Service: July 03, 2024 Billing Provider: BENJA ROBBINS MD Common Visit Codes: NOT BILLABLE BENJA ROBBINS MD July 03, 2024 16:05
[2024-07-03] MEDS ORDERED: EPOETIN ALFA-EPBX 4,000 UNIT/ML VIAL SC ONE (21:00)
--- NOTE | 2024-07-03 22:46 | DVHPN2 ---
Progress Note - Dictate Date Seen: July 03, 2024 Medical Necessity Reason Pt with a Central, PICC or Fol: Yes The following are medically ne: Eagle Catheter Reason for eagle catheter: Strict I&O Subjective Patient seen and examined at bedside. On supplemental oxygen Overnight events reviewed. vital signs Vital Sign Date Time Temp Pulse Resp B/P (MAP) Pulse Ox O2 Delivery O2 Flow Rate FiO2 07/03/24 21:11 87 157/59 07/03/24 21:00 97.2 22 98 97.2 07/03/24 20:11 Nasal Cannula 4.0 07/03/24 20:11 36 Total Intake and Output 07/02/24 07/02/24 07/03/24 15:00 23:00 07:00 Intake Total 50 ml 660 ml 400 ml Balance 50 ml 660 ml 400 ml medications Current Medications Medications Dose Ordered Sig/Eric Route Start Time Stop Time Status Last Admin Dose Admin Ondansetron HCl 4 mg Q4HP PRN IV 06/11/24 02:00 Nitroglycerin 0.4 mg Q5MINP PRN SL 06/11/24 02:00 Albuterol 2.5 mg Q4HPRN PRN NEB 06/11/24 02:00 06/29/24 21:59 2.5 MG Ipratropium [place] 0.5 mg Q4HPRN PRN NEB 06/11/24 02:00 06/29/24 21:59 0.5 MG Acetaminophen 650 mg Q6HP PRN GT 06/11/24 23:45 06/12/24 02:48 650 MG Nicardipine HCl 250 ml @ 50 mls/hr Q5H IV 06/13/24 14:45 UNV Hydralazine HCl 10 mg Q6HPRN PRN IV 06/17/24 00:00 07/01/24 17:42 10 MG Dopamine HCl/ Dextrose 250 ml @ 15.544 mls/ hr Q16H5M IV 06/21/24 11:00 UNV Metoprolol Tartrate 50 mg BID PO 06/23/24 22:00 07/03/24 21:11 50 MG Amlodipine Besylate 10 mg DAILY PO 06/24/24 10:00 07/03/24 10:31 10 MG Vancomycin HCl 0 ml @ 0 mls/hr UD IV 06/23/24 20:45 Clonidine HCl 0.2 mg Q7D TD 06/25/24 14:30 07/02/24 14:56 0.2 MG Famotidine 10 mg EOD PO 06/27/24 10:00 07/03/24 10:32 10 MG Heparin Sodium (Porcine) 2,300 units AMANDA PRN IV 06/26/24 15:30 Cancel Acetaminophen/ Hydrocodone Bitart 1 tab Q6HPRN PRN PO 06/26/24 22:30 07/01/24 20:42 1 TAB Morphine Sulfate 2 mg Q4HPRN PRN IV 06/27/24 00:45 07/01/24 22:11 2 MG Nifedipine 90 mg DAILY PO 06/28/24 10:00 07/03/24 10:30 90 MG Fluconazole 100 mg HS PO 06/27/24 22:00 07/03/24 21:11 100 MG Lorazepam 1 mg Q6HP PRN IV 07/01/24 11:15 07/03/24 21:11 1 MG objective Gen.: Patient lying in bed in no apparent distress. On supplemental oxygen Head: Normocephalic, atraumatic. Eyes: EOMI/PERRLA. Ears: Normal hearing. Normal anatomy. Neck/trachea: Trachea midline, supple. Nose: Normal external anatomy. Mouth: Moist mucous membranes. Chest: Decreased air entry bilaterally. No wheezing or rhonchi. Cardiovascular: Positive S1, positive S2. Regular rate and rhythm. Abdomen: Positive bowel sounds in all 4 quadrants. Soft, non-tender, non- distended. : Deferred. Rectal: Deferred. Skin: Warm, dry. Intact. Extremities: 2+ radial pulses bilaterally. No lower extremity edema. Neuro: Awake, alert, oriented x3. No gross motor or sensory deficits. Cranial nerves II through XII intact. Gait not assessed laboratory and microbiology Laboratory Tests 07/03/24 06:38 07/01/24 10:18 Test 07/01/24 10:18 Range/Units Serum Glucose 92 74-106 mg/dL Assessment/Plan Impression: Acute hypoxic respiratory failure Acute CVA Acute encephalopathy ESRD, on hemodialysis Pulmonary edema Shock Obesity BMI 33.3 Events: Remains on supplemental oxygen On 4 LPM NC Taper O2 as tolerated Head of bed elevation Aspiration precautions On Diflucan Incentive spirometry Antihypertensive medication - BP control WBC trending up, 3.1 k Monitor hemoglobin, 8.1 g/dL. Trending down. Monitor platelets, stable at 101. Pepcid for GI prophylaxis HD per Nephrology Monitor renal function, creat trending down. Monitor electrolytes. Supplement as necessary. Monitor ins and outs. Disposition per hospitalist. Labs and imaging reviewed Plan: S/p extubation Supplemental oxygen Titrate to keep O2 sats above 92%. Monitor blood pressure Continue antibiotics. F/u cultures. Bronchodilators PRN Accu-Cheks, ISS Echo reviewed Cardiology recs appreciated Pressors as necessary for hemodynamic support Titrate to keep mean arterial pressure greater than 65 mmHg. HD per Nephrology Monitor renal function Monitor electrolytes. Supplement as necessary. Monitor ins and outs. Maintain euvolemia. GI prophylaxis. DVT prophylaxis. Prognosis: Poor given patient's multiple co-morbidities. Rest of plan per hospitalist and other consultants. Thank you, LISA Garcia, for allowing me to participate in this patient's care. Further recommendations will depend on the patient's clinical course. Please do not hesitate to contact me if you have any questions or concerns. This medical document was created using an electronic medical record system with [employer] dictation system. Although these documentations are being carefully reviewed, there may still be some phonetic and typographical changes. The errors are purely typographical, due to imperfection on the software program, and do not reflect any compromise in the patient's medical care. Dietary Evaluation Review Comments: 1) If patient remains NPO > 7 days, consider EN/TPN to meet at least 75% estimated needs 2) If GI route is preferred, consider Nepro @ 25 mL/hr goal rate as tolerated. EN regimen will provide 1080 kcals, 49g Pro, and 447 mL free H2O per 24 hrs. EN regimen will meet ~90% estimated daily energy needs and ~47% estimated daily protein needs 3) Initiate Nephro-Susan @ 1 tb qd 4) Advance to 60g CCHO renal standard diet when medically feasible, pending TURNER SPLITTER MACHINE OPERATOR approval 5) Follow-up with nephrology, cardiology, and pulmonology 6) Continue to monitor I&O, labs, and skin integrity Expected Outcomes/Goals: 1) patient to receive nutrition support within 7 days of NPO status 2) labs to improve 3) wound to improve 4) patient to be extubated and diet to advance 5) f/u in 2-3 days Plan discussed with: Patient, Other (DAVID Eldridge) NAE BELLAMY MD July 03, 2024 22:46
[2024-07-04] VITALS (10 sets, daily range): BP systolic 129–156; BP diastolic 47–65; PULSE 64–92; RESP 16–24; TEMP 98–100.1; O2SAT 91–98
[2024-07-04 07:50] LABS: Basophils # (auto) 0 10 ^3/uL (0-0.2); Basophils % (auto) 0.6 % (0.0-2.0); Eosinophils # (auto) 0.1 10 ^3/uL (0-0.8); Eosinophils % (auto) 2.3 % (0.0-7.0); Hematocrit 25.9 % (36.0-46.0); Hemoglobin 8.6 g/dL (12.2-16.2); Lymphocytes # (auto) 0.8 10 ^3/uL (0.4-5.4); Lymphocytes % (auto) 25.9 % (10.0-50.0); Mean Corpuscular Hemoglobin 29.8 pg (28.0-32.0); Mean Corpuscular Volume 90.1 fL (80.0-100.0); Monocytes # (auto) 0.2 10 ^3/uL (0-1.3); Monocytes % (auto) 6.8 % (0.0-12.0); Neutrophils # (auto) 2.1 10 ^3/uL (1.6-8.6); Neutrophils % (auto) 64.4 % (37.0-80.0); Platelet Count (auto) 102 10^3/uL (140-450); Red Blood Cells 2.87 10^6/uL (4.0-5.20); White Blood Cell 3.2 10^3/uL (4.4-10.8)
--- NOTE | 2024-07-04 10:16 | DVHPN2 ---
Progress Note - Dictate Date Seen: July 04, 2024 Medical Necessity Reason Pt with a Central, PICC or Fol: Yes The following are medically ne: Eagle Catheter Reason for eagle catheter: Strict I&O Subjective No new complaints vital signs Vital Sign Date Time Temp Pulse Resp B/P (MAP) Pulse Ox O2 Delivery O2 Flow Rate FiO2 07/04/24 08:46 100.1 80 18 142/62 (88) 98 100.1 07/04/24 08:00 Nasal Cannula* 4 36 Total Intake and Output 07/03/24 07/03/24 07/04/24 15:00 23:00 07:00 Intake Total 445 ml 640 ml Output Total 1 ml Balance 445 ml 639 ml medications Current Medications Medications Dose Ordered Sig/Eric Route Start Time Stop Time Status Last Admin Dose Admin Ondansetron HCl 4 mg Q4HP PRN IV 06/11/24 02:00 Nitroglycerin 0.4 mg Q5MINP PRN SL 06/11/24 02:00 Albuterol 2.5 mg Q4HPRN PRN NEB 06/11/24 02:00 06/29/24 21:59 2.5 MG Ipratropium [place] 0.5 mg Q4HPRN PRN NEB 06/11/24 02:00 06/29/24 21:59 0.5 MG Acetaminophen 650 mg Q6HP PRN GT 06/11/24 23:45 06/12/24 02:48 650 MG Nicardipine HCl 250 ml @ 50 mls/hr Q5H IV 06/13/24 14:45 UNV Hydralazine HCl 10 mg Q6HPRN PRN IV 06/17/24 00:00 07/01/24 17:42 10 MG Dopamine HCl/ Dextrose 250 ml @ 15.544 mls/ hr Q16H5M IV 06/21/24 11:00 UNV Metoprolol Tartrate 50 mg BID PO 06/23/24 22:00 07/03/24 21:11 50 MG Amlodipine Besylate 10 mg DAILY PO 06/24/24 10:00 07/03/24 10:31 10 MG Vancomycin HCl 0 ml @ 0 mls/hr UD IV 06/23/24 20:45 Clonidine HCl 0.2 mg Q7D TD 06/25/24 14:30 07/02/24 14:56 0.2 MG Famotidine 10 mg EOD PO 06/27/24 10:00 07/03/24 10:32 10 MG Heparin Sodium (Porcine) 2,300 units AMANDA PRN IV 06/26/24 15:30 Cancel Acetaminophen/ Hydrocodone Bitart 1 tab Q6HPRN PRN PO 06/26/24 22:30 07/01/24 20:42 1 TAB Morphine Sulfate 2 mg Q4HPRN PRN IV 06/27/24 00:45 07/01/24 22:11 2 MG Nifedipine 90 mg DAILY PO 06/28/24 10:00 07/03/24 10:30 90 MG Fluconazole 100 mg HS PO 06/27/24 22:00 07/03/24 21:11 100 MG Lorazepam 1 mg Q6HP PRN IV 07/01/24 11:15 07/03/24 21:11 1 MG objective More awake Lungs Diminished air entry at bases CV:: RR, no pericardial rub Abdomen: soft, mildly distended, low BS Trace edema of legs laboratory and microbiology Laboratory Tests 07/04/24 07:10 07/01/24 10:18 Test 07/01/24 10:18 Range/Units Serum Glucose 92 74-106 mg/dL Problem List End-stage renal disease on HD Anemia of renal disease. Pneumonia Acute hypoxic Respiratory failure, s/p extubation Subacute stroke. T-spine fracture Plan: Patient did not get HD as scheduled yesterday due to unavailability of HD nurse She will be dialyzed today UF goal 2 L Fluid restriction less than 1 L per day ANANTH post HD as needed, goal Hb: 10-11 g/dl Preparing for transfer to SNF Dietary Evaluation Review Comments: 1) If patient remains NPO > 7 days, consider EN/TPN to meet at least 75% estimated needs 2) If GI route is preferred, consider Nepro @ 25 mL/hr goal rate as tolerated. EN regimen will provide 1080 kcals, 49g Pro, and 447 mL free H2O per 24 hrs. EN regimen will meet ~90% estimated daily energy needs and ~47% estimated daily protein needs 3) Initiate Nephro-Susan @ 1 tb qd 4) Advance to 60g CCHO renal standard diet when medically feasible, pending [facility] approval 5) Follow-up with nephrology, cardiology, and pulmonology 6) Continue to monitor I&O, labs, and skin integrity Expected Outcomes/Goals: 1) patient to receive nutrition support within 7 days of NPO status 2) labs to improve 3) wound to improve 4) patient to be extubated and diet to advance 5) f/u in 2-3 days Plan discussed with: Patient STEFANIE SAMUEL MD July 04, 2024 10:16
--- NOTE | 2024-07-04 12:25 | DVHPN2 ---
Subjective PATIENT HAS A FLEXION MENTAL STATUS, MORE DROWSY TODAY, STILL HAS ONE-TO-ONE SITTER Reviewed: Care Plan Changes from previous H/P or p: No Changes Objective Vitals Vital Signs Date Time Temp Pulse Resp B/P (MAP) Pulse Ox O2 Delivery O2 Flow Rate FiO2 07/04/24 12:16 98.4 71 17 131/47 (75) 96 98.4 07/04/24 08:00 Nasal Cannula* 4 36 Intake/Output Intake and Output 07/04/24 06:59 Intake Total 1085 ml Output Total 1 ml Balance 1084 ml Intake Oral 1085 ml Output Urine Total 1 ml Exam HEENT pupils are reactive , brisk reaction somewhat unequal. 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 Medications Current Medications Medications Dose Ordered Sig/Eric Route Start Time Stop Time Status Last Admin Dose Admin Ondansetron HCl 4 mg Q4HP PRN IV 06/11/24 02:00 Nitroglycerin 0.4 mg Q5MINP PRN SL 06/11/24 02:00 Albuterol 2.5 mg Q4HPRN PRN NEB 06/11/24 02:00 06/29/24 21:59 2.5 MG Ipratropium [place] 0.5 mg Q4HPRN PRN NEB 06/11/24 02:00 06/29/24 21:59 0.5 MG Acetaminophen 650 mg Q6HP PRN GT 06/11/24 23:45 06/12/24 02:48 650 MG Nicardipine HCl 250 ml @ 50 mls/hr Q5H IV 06/13/24 14:45 UNV Hydralazine HCl 10 mg Q6HPRN PRN IV 06/17/24 00:00 07/01/24 17:42 10 MG Dopamine HCl/ Dextrose 250 ml @ 15.544 mls/ hr Q16H5M IV 06/21/24 11:00 UNV Metoprolol Tartrate 50 mg BID PO 06/23/24 22:00 07/04/24 10:24 50 MG Amlodipine Besylate 10 mg DAILY PO 06/24/24 10:00 07/04/24 10:23 10 MG Vancomycin HCl 0 ml @ 0 mls/hr UD IV 06/23/24 20:45 Clonidine HCl 0.2 mg Q7D TD 06/25/24 14:30 07/02/24 14:56 0.2 MG Famotidine 10 mg EOD PO 06/27/24 10:00 07/03/24 10:32 10 MG Heparin Sodium (Porcine) 2,300 units AMANDA PRN IV 06/26/24 15:30 Cancel Acetaminophen/ Hydrocodone Bitart 1 tab Q6HPRN PRN PO 06/26/24 22:30 07/01/24 20:42 1 TAB Morphine Sulfate 2 mg Q4HPRN PRN IV 06/27/24 00:45 07/01/24 22:11 2 MG Nifedipine 90 mg DAILY PO 06/28/24 10:00 07/04/24 10:24 90 MG Fluconazole 100 mg HS PO 06/27/24 22:00 07/03/24 21:11 100 MG Lorazepam 1 mg Q6HP PRN IV 07/01/24 11:15 07/03/24 21:11 1 MG Laboratory Results Laboratory Tests 07/01/24 10:18 07/04/24 07:10 Urinalysis Test 06/11/24 03:00 Urine Color Light-yellow (Yellow) Urine Clarity Turbid (Clear) H Urine pH 8.0 (5.0-9.0) Urine Specific [place] 1.008 (1.001-1.035) Urine Protein 3+ (Negative) H Urine Ketones Negative (Negative) Urine Blood Negative /uL (Negative) Urine Nitrite Negative (Negative) Urine Bilirubin Negative (Negative) Urine Urobilinogen Normal mg/dL (Negative) Urine Leukocyte Esterase 1+ /uL (Negative) Urine RBC 10 /hpf (0 - 4) Urine Microscopic WBC 41 /HPF (0-5) H Urine Squamous Epithelial Cells Mod /hpf (<5) Urine Bacteria None seen /hpf (None Seen) Urine Glucose 2+ mg/dL (Normal) H Microbiology Microbiology Date/Time Source Procedure Growth Status 06/13/24 08:45 Nose MRSA Screen - Final Complete 06/11/24 23:55 Blood Blood Culture - Final NO GROWTH AFTER 5 DAYS OF INCUBATION. Complete Assessment/Plan Assessment/Plan 63-year-old female with a known history of hypertension, dyslipidemia, coronary artery disease, anxiety disorder, recent mechanical fall found to have acute small T12 compression fracture, L3-4 lumbar diskitis presented to the hospital with right-sided weakness altered mental status eventually intubated in the ER for airway protection. Patient was found to have acute/subacute left frontal and temporal infarct currently MRI brain is pending. 1. Acute hypoxic respiratory failure requiring intubation with mechanical ventilation secondary to metabolic encephalopathy , extubated on 06/25 2. Metabolic encephalopathy ruled in acute CVA 3.Subacute CVA with the left frontal and temporal infarct, MRI brain shows no evidence of acute infarct 4. Hypertensive emergency with the end-organ involvement , off the nicardipine drip 5. End-stage renal disease on hemodialysis 6. Coronary artery disease 7. L3-4 lumbar diskitis/osteomyelitis, resume IV vancomycin and consult infectious disease specialist 8. Physical deconditioning 9. Anisocoria, repeat head CT shows no evidence of any acute pathology besides old left frontal /parietal infarct -[employer] CONSULTATION FOR PLACEMENT TO LONGTERM FACILITY Continue O2 supplementation -physical therapy evaluation and treatment, diet as tolerated, -patient is still has one-to-one sitter. Plan discussed with: Other My Orders Orders - BENJA ROBBINS MD Procedure Category Date Status Time Basic Metabolic Panel LAB 07/04/24 Verified 12:22 Date of Service: July 04, 2024 Billing Provider: BENJA ROBBINS MD Common Visit Codes: NOT BILLABLE BENJA ROBBINS MD July 04, 2024 12:25
[2024-07-04 12:34] LABS: Sodium 139 mmol/L (136-145)
[2024-07-04 12:35] LABS: Anion Gap 12 (5-15); Carbon Dioxide 29 mmol/L (20-31)
[2024-07-04 12:40] LABS: BUN/Creatinine Ratio 6.4 (10.0-20.0); Glucose 95 mg/dL (74-106)
[2024-07-04 12:42] LABS: Blood Urea Nitrogen 41 mg/dL (9-23); Chloride 98 mmol/L (98-107)
--- NOTE | 2024-07-04 12:42 | DVHPN2 ---
Progress Note - Dictate Date Seen: July 04, 2024 Medical Necessity Reason Pt with a Central, PICC or Fol: Yes The following are medically ne: Eagle Catheter Reason for eagle catheter: Strict I&O Subjective Patient was seen and evaluated in follow up. Sitter is at bedside. Patient is more drowsy today, has fluctuation mentation. WBC 3.2, HGB 8.6, HCT 25.9, PACKING CLERK 6.17. Telemetry reviewed. vital signs Vital Sign Date Time Temp Pulse Resp B/P (MAP) Pulse Ox O2 Delivery O2 Flow Rate FiO2 07/04/24 10:24 142/62 07/04/24 10:24 80 07/04/24 08:46 100.1 18 98 100.1 07/04/24 08:00 Nasal Cannula* 4 36 Total Intake and Output 07/03/24 07/03/24 07/04/24 15:00 23:00 07:00 Intake Total 445 ml 640 ml Output Total 1 ml Balance 445 ml 639 ml medications Current Medications Medications Dose Ordered Sig/Eric Route Start Time Stop Time Status Last Admin Dose Admin Ondansetron HCl 4 mg Q4HP PRN IV 06/11/24 02:00 Nitroglycerin 0.4 mg Q5MINP PRN SL 06/11/24 02:00 Albuterol 2.5 mg Q4HPRN PRN NEB 06/11/24 02:00 06/29/24 21:59 2.5 MG Ipratropium [place] 0.5 mg Q4HPRN PRN NEB 06/11/24 02:00 06/29/24 21:59 0.5 MG Acetaminophen 650 mg Q6HP PRN GT 06/11/24 23:45 06/12/24 02:48 650 MG Nicardipine HCl 250 ml @ 50 mls/hr Q5H IV 06/13/24 14:45 UNV Hydralazine HCl 10 mg Q6HPRN PRN IV 06/17/24 00:00 07/01/24 17:42 10 MG Dopamine HCl/ Dextrose 250 ml @ 15.544 mls/ hr Q16H5M IV 06/21/24 11:00 UNV Metoprolol Tartrate 50 mg BID PO 06/23/24 22:00 07/04/24 10:24 50 MG Amlodipine Besylate 10 mg DAILY PO 06/24/24 10:00 07/04/24 10:23 10 MG Vancomycin HCl 0 ml @ 0 mls/hr UD IV 06/23/24 20:45 Clonidine HCl 0.2 mg Q7D TD 06/25/24 14:30 07/02/24 14:56 0.2 MG Famotidine 10 mg EOD PO 06/27/24 10:00 07/03/24 10:32 10 MG Heparin Sodium (Porcine) 2,300 units AMANDA PRN IV 06/26/24 15:30 Cancel Acetaminophen/ Hydrocodone Bitart 1 tab Q6HPRN PRN PO 06/26/24 22:30 07/01/24 20:42 1 TAB Morphine Sulfate 2 mg Q4HPRN PRN IV 06/27/24 00:45 07/01/24 22:11 2 MG Nifedipine 90 mg DAILY PO 06/28/24 10:00 07/04/24 10:24 90 MG Fluconazole 100 mg HS PO 06/27/24 22:00 07/03/24 21:11 100 MG Lorazepam 1 mg Q6HP PRN IV 07/01/24 11:15 07/03/24 21:11 1 MG objective GENERAL: Alert and oriented x 3. No acute distress. EYES: PERRL, EOMI. Anicteric. HENT: Moist mucous membranes. LUNGS: Decreased breath sounds. CARDIOVASCULAR: Regular rate and rhythm. ABDOMEN: Soft, nontender and nondistended. EXTREMITIES: No edema. NEUROLOGIC: No focal neurological deficits. SKIN: Warm, dry. laboratory and microbiology Laboratory Tests 07/04/24 07:10 07/01/24 10:18 Test 07/01/24 10:18 Range/Units Serum Glucose 92 74-106 mg/dL Problem List Acute CVA. Hypertensive emergency. Questionable coronary artery disease. Moderate pericardial effusion. Acute hypoxic respiratory failure. End-stage renal disease on hemodialysis. History of T12 compression fracture. Assessment/Plan Continued all current supportive medical care. Morphine and [place] for pain management. Amlodipine, Clonidine, Nifedipine. IV antibiotics as ordered. IV Hydralazine for SBP >160. Metoprolol. Additional plan as per the hospital course. Dietary Evaluation Review Comments: 1) If patient remains NPO > 7 days, consider EN/TPN to meet at least 75% estimated needs 2) If GI route is preferred, consider Nepro @ 25 mL/hr goal rate as tolerated. EN regimen will provide 1080 kcals, 49g Pro, and 447 mL free H2O per 24 hrs. EN regimen will meet ~90% estimated daily energy needs and ~47% estimated daily protein needs 3) Initiate Nephro-Susan @ 1 tb qd 4) Advance to 60g CCHO renal standard diet when medically feasible, pending [facility] approval 5) Follow-up with nephrology, cardiology, and pulmonology 6) Continue to monitor I&O, labs, and skin integrity Expected Outcomes/Goals: 1) patient to receive nutrition support within 7 days of NPO status 2) labs to improve 3) wound to improve 4) patient to be extubated and diet to advance 5) f/u in 2-3 days Plan discussed with: SHAUN Pérez MD July 04, 2024 12:12
[2024-07-04] MEDS ORDERED: SODIUM CHL 0.9% 1000 ML BAG XX ONE (15:00)
[2024-07-04] MEDS: EPOETIN ALFA-EPBX 4,000 UNIT/ML VIAL SC ONE (20:41)
[2024-07-04] MEDS: VANCOMYCIN 500mg/100mL 100 ML IV ONE (21:26)
--- NOTE | 2024-07-04 21:45 | DVHPN2 ---
Progress Note - Dictate Date Seen: July 04, 2024 Medical Necessity Reason Pt with a Central, PICC or Fol: Yes The following are medically ne: Eagle Catheter Reason for eagle catheter: Strict I&O Subjective Ms. Dawkins is a 63 years old female with a history of chronic kidney failure on hemodialysis, recent spine fracture, she came to the [facility] on 06/10/2024 with a chief complaint of back pain. I have seen and examined the patient, I have discussed with her nurse, she received sedation, she is awake, responsive to verbal stimuli, she tracks, but she does not talk or answer questions Blood culture, 06/11/2024: Urinalysis, 06/11/2024: Negative Plasma alcohol, 06/10/2024: <3 ABG, 06/08/2024: Respiratory alkalosis WBC/HB/PLT/MCV, 06/11/2024: 1.7/10.5/114/89.3, 06/15/2024: 2.2/9.7/124/87.7, 06/16/2024: 0.5/10.3/136/86.5, 06/17/2024: 7.2/9.9/152/87.3 Na, 06/10/2024: 136, 06/12/2024: 133, 06/14/2024: 125, 06/15/24: 130 BUN/CR, 05/2624: 47/7.51, 06/15/2024: 31/5.74 HGB A1c, 06/11/2024: 4.3 Liver function tests, 06/10/2024: Unremarkable TG/HDL/LDL/HDL, 06/11/2024: 63/106/47/40 Echocardiogram, 06/11/2024: LVEF is normal 50-55% Rv function normal Moderate pericardial effusion with no evidence of tamponade Large left pleural effusion Chest x-ray, 06/11/2024: Lines and tubes in satisfactory position. No significant interval change Chest x-ray, 06/15/2024: 1. Mild diffuse increased prominence of the pulmonary vasculature. 2. Lines and tubes unchanged CT head, 06/10/2024: Subacute stroke involving the left frontal lobe white matter which also may involve the left temporal lobe as well can not rule out acute features CT head 06/21/24: 1. No acute intracranial hemorrhage 2. Stable left parietal infarct unchanged from 06/10/2024. CT head, 06/28/2024: 1. No acute intracranial hemorrhage. 2. Stable infarct on the left in the frontal parietal lobe. 3. No new areas of ischemia. CT T-spine, 06/10/2024: No evidence of fracture in the thoracic spine CT lumbar spine, 06/10/2024: No acute fracture. Grade 1 anterolisthesis at L4-L5 with bilateral pars defects. Moderate to severe endplate degenerative changes at L4-L5, T12-L1, and L5-S1. There is severe spinal canal narrowing at L4-L5. Partially visualized moderate bilateral pleural effusions. Mild diffuse anasarca CTA head, neck, 06/10/2024: No significant vascular stenosis involving the head / neck. Moderate occlusion of the bilateral V4 segments vertebral arteries due to calcified and noncalcified plaques MRI head, 06/12/2024: 1. There is no acute intracranial process. 2. Chronic infarct in the superolateral left frontal lobe. (I saw another possible chronic stroke: Images 16) MRI lumbar spine, 06/19/2024: Severe spinal canal stenosis with severe bilateral lateral recess narrowing at L3-L4. Severe bilateral neural foramina stenosis at L3-L4 with moderate right and severe left-sided neural foramina stenosis at L4- L5. Grade 1 anterolisthesis of L4 on L5. vital signs Vital Sign Date Time Temp Pulse Resp B/P (MAP) Pulse Ox O2 Delivery O2 Flow Rate FiO2 07/04/24 21:29 73 129/51 07/04/24 21:00 98.0 18 91 98.0 07/04/24 20:11 Nasal Cannula 4.0 07/04/24 20:11 36 Total Intake and Output 07/03/24 07/03/24 07/04/24 15:00 23:00 07:00 Intake Total 445 ml 640 ml Output Total 1 ml Balance 445 ml 639 ml medications Current Medications Medications Dose Ordered Sig/Eric Route Start Time Stop Time Status Last Admin Dose Admin Ondansetron HCl 4 mg Q4HP PRN IV 06/11/24 02:00 Nitroglycerin 0.4 mg Q5MINP PRN SL 06/11/24 02:00 Albuterol 2.5 mg Q4HPRN PRN NEB 06/11/24 02:00 06/29/24 21:59 2.5 MG Ipratropium [place] 0.5 mg Q4HPRN PRN NEB 06/11/24 02:00 06/29/24 21:59 0.5 MG Acetaminophen 650 mg Q6HP PRN GT 06/11/24 23:45 06/12/24 02:48 650 MG Nicardipine HCl 250 ml @ 50 mls/hr Q5H IV 06/13/24 14:45 UNV Hydralazine HCl 10 mg Q6HPRN PRN IV 06/17/24 00:00 07/01/24 17:42 10 MG Dopamine HCl/ Dextrose 250 ml @ 15.544 mls/ hr Q16H5M IV 06/21/24 11:00 UNV Metoprolol Tartrate 50 mg BID PO 06/23/24 22:00 07/04/24 21:29 50 MG Amlodipine Besylate 10 mg DAILY PO 06/24/24 10:00 07/04/24 10:23 10 MG Vancomycin HCl 0 ml @ 0 mls/hr UD IV 06/23/24 20:45 Clonidine HCl 0.2 mg Q7D TD 06/25/24 14:30 07/02/24 14:56 0.2 MG Famotidine 10 mg EOD PO 06/27/24 10:00 07/03/24 10:32 10 MG Heparin Sodium (Porcine) 2,300 units AMANDA PRN IV 06/26/24 15:30 Cancel Acetaminophen/ Hydrocodone Bitart 1 tab Q6HPRN PRN PO 06/26/24 22:30 07/01/24 20:42 1 TAB Morphine Sulfate 2 mg Q4HPRN PRN IV 06/27/24 00:45 07/01/24 22:11 2 MG Nifedipine 90 mg DAILY PO 06/28/24 10:00 07/04/24 10:24 90 MG Fluconazole 100 mg HS PO 06/27/24 22:00 07/04/24 21:29 100 MG Lorazepam 1 mg Q6HP PRN IV 07/01/24 11:15 07/03/24 21:11 1 MG objective The patient is well-nourished and well-developed with no distress. MENTAL STATUS: Subjective CRANIAL NERVES: Pupils are equal round and reactive to light briskly, normal external eye movement, normal sensation and motor examination in the lateral trigeminal nerve distribution, no facial weakness. SENSATION: Okay to light touch and pinprick MOTOR: Normal tone in the upper and lower extremity. Normal muscle bulk. No fasciculations. She moves the arms REFLEXES: Deep tendon reflexes are symmetrical. No pathological reflexes. CEREBELLAR/COORDINATION: Deferred GAIT/STATION: deferred. No tenderness in the back to palpation laboratory and microbiology Laboratory Tests 07/04/24 07:10 Test 07/04/24 07:10 Range/Units Serum Glucose 95 74-106 mg/dL Problem List 2 chronic strokes in the left hemisphere per MRI and CT scan, asymptomatic Acute low back pain to rule out diskitis Acute respiratory failure Pancytopenia, better Hyponatremia Hypokalemia Chronic kidney failure Metabolic encephalopathy/psychosis Anisocoria noticed on 06/18/2024, uncertain clinical significance ? Back pain Assessment/Plan Monitoring Supportive treatment IV antibiotics Discontinue gabapentin and baclofen, consider resume as indicated Aspirin 81 mg daily Lipitor 40 mg daily Remeron 15 mg p.o. q.h.s., consider discontinued when the patient's sleep and nocturnal psychosis amber better DVT prophylaxis GI prophylaxis Up to chair, Physical therapy Consult hematology Infectious disease on case Cardiology on case Pulmonary on case Nephrology on case More recommendation per clinical course This medical document was created using an electronic medical record system with [employer] dictation system. Although this document has been carefully reviewed, there may still be some phonetic and typographical errors. These areas are purely typographical due to imperfections of the software programs, and do not reflect any compromise in the patient's medical care Prognosis poor Dietary Evaluation Review Comments: 1) If patient remains NPO > 7 days, consider EN/TPN to meet at least 75% estimated needs 2) If GI route is preferred, consider Nepro @ 25 mL/hr goal rate as tolerated. EN regimen will provide 1080 kcals, 49g Pro, and 447 mL free H2O per 24 hrs. EN regimen will meet ~90% estimated daily energy needs and ~47% estimated daily protein needs 3) Initiate Nephro-Susan @ 1 tb qd 4) Advance to 60g CCHO renal standard diet when medically feasible, pending [employer] approval 5) Follow-up with nephrology, cardiology, and pulmonology 6) Continue to monitor I&O, labs, and skin integrity Expected Outcomes/Goals: 1) patient to receive nutrition support within 7 days of NPO status 2) labs to improve 3) wound to improve 4) patient to be extubated and diet to advance 5) f/u in 2-3 days Plan discussed with: FORD Tai MD July 04, 2024 21:45
--- NOTE | 2024-07-04 22:35 | DVHPN2 ---
Progress Note - Dictate Date Seen: July 04, 2024 Medical Necessity Reason Pt with a Central, PICC or Fol: Yes The following are medically ne: Eagle Catheter Reason for eagle catheter: Strict I&O Subjective Patient seen and examined at bedside. On supplemental oxygen Overnight events reviewed. vital signs Vital Sign Date Time Temp Pulse Resp B/P (MAP) Pulse Ox O2 Delivery O2 Flow Rate FiO2 07/04/24 21:29 73 129/51 07/04/24 21:00 98.0 18 91 98.0 07/04/24 20:11 Nasal Cannula 4.0 07/04/24 20:11 36 Total Intake and Output 07/03/24 07/03/24 07/04/24 15:00 23:00 07:00 Intake Total 445 ml 640 ml Output Total 1 ml Balance 445 ml 639 ml medications Current Medications Medications Dose Ordered Sig/Eric Route Start Time Stop Time Status Last Admin Dose Admin Ondansetron HCl 4 mg Q4HP PRN IV 06/11/24 02:00 Nitroglycerin 0.4 mg Q5MINP PRN SL 06/11/24 02:00 Albuterol 2.5 mg Q4HPRN PRN NEB 06/11/24 02:00 06/29/24 21:59 2.5 MG Ipratropium [place] 0.5 mg Q4HPRN PRN NEB 06/11/24 02:00 06/29/24 21:59 0.5 MG Acetaminophen 650 mg Q6HP PRN GT 06/11/24 23:45 06/12/24 02:48 650 MG Nicardipine HCl 250 ml @ 50 mls/hr Q5H IV 06/13/24 14:45 UNV Hydralazine HCl 10 mg Q6HPRN PRN IV 06/17/24 00:00 07/01/24 17:42 10 MG Dopamine HCl/ Dextrose 250 ml @ 15.544 mls/ hr Q16H5M IV 06/21/24 11:00 UNV Metoprolol Tartrate 50 mg BID PO 06/23/24 22:00 07/04/24 21:29 50 MG Amlodipine Besylate 10 mg DAILY PO 06/24/24 10:00 07/04/24 10:23 10 MG Vancomycin HCl 0 ml @ 0 mls/hr UD IV 06/23/24 20:45 Clonidine HCl 0.2 mg Q7D TD 06/25/24 14:30 07/02/24 14:56 0.2 MG Famotidine 10 mg EOD PO 06/27/24 10:00 07/03/24 10:32 10 MG Heparin Sodium (Porcine) 2,300 units AMANDA PRN IV 06/26/24 15:30 Cancel Acetaminophen/ Hydrocodone Bitart 1 tab Q6HPRN PRN PO 06/26/24 22:30 07/01/24 20:42 1 TAB Morphine Sulfate 2 mg Q4HPRN PRN IV 06/27/24 00:45 07/01/24 22:11 2 MG Nifedipine 90 mg DAILY PO 06/28/24 10:00 07/04/24 10:24 90 MG Fluconazole 100 mg HS PO 06/27/24 22:00 07/04/24 21:29 100 MG Lorazepam 1 mg Q6HP PRN IV 07/01/24 11:15 07/03/24 21:11 1 MG objective Gen.: Patient lying in bed in no apparent distress. On supplemental oxygen Head: Normocephalic, atraumatic. Eyes: EOMI/PERRLA. Ears: Normal hearing. Normal anatomy. Neck/trachea: Trachea midline, supple. Nose: Normal external anatomy. Mouth: Moist mucous membranes. Chest: Decreased air entry bilaterally. No wheezing or rhonchi. Cardiovascular: Positive S1, positive S2. Regular rate and rhythm. Abdomen: Positive bowel sounds in all 4 quadrants. Soft, non-tender, non- distended. : Deferred. Rectal: Deferred. Skin: Warm, dry. Intact. Extremities: 2+ radial pulses bilaterally. No lower extremity edema. Neuro: Awake, alert, oriented x3. No gross motor or sensory deficits. Cranial nerves II through XII intact. Gait not assessed laboratory and microbiology Laboratory Tests 07/04/24 07:10 Test 07/04/24 07:10 Range/Units Serum Glucose 95 74-106 mg/dL Assessment/Plan Impression: Acute hypoxic respiratory failure Acute CVA Acute encephalopathy ESRD, on hemodialysis Pulmonary edema Shock Obesity BMI 33.3 Events: Remains on supplemental oxygen On 4 LPM NC Taper O2 as tolerated Head of bed elevation Aspiration precautions Continue Diflucan Incentive spirometry Continue antibiotics. Antihypertensive medication - BP control WBC stable, 3.2 k Monitor hemoglobin, currently 8.6 g/dL. Monitor platelets, stable at 102. Pepcid for GI prophylaxis HD per Nephrology Monitor renal function, creatinine trending up at 6.45. Follow up Nephrology recs Monitor electrolytes. Supplement as necessary. Monitor ins and outs. Disposition per hospitalist. Labs and imaging reviewed Plan: S/p extubation Supplemental oxygen Titrate to keep O2 sats above 92%. Monitor blood pressure Continue antibiotics. F/u cultures. Bronchodilators PRN Accu-Cheks, ISS Echo reviewed Cardiology recs appreciated Pressors as necessary for hemodynamic support Titrate to keep mean arterial pressure greater than 65 mmHg. HD per Nephrology Monitor renal function Monitor electrolytes. Supplement as necessary. Monitor ins and outs. Maintain euvolemia. GI prophylaxis. DVT prophylaxis. Prognosis: Poor given patient's multiple co-morbidities. Rest of plan per hospitalist and other consultants. Thank you, LISA Garcia, for allowing me to participate in this patient's care. Further recommendations will depend on the patient's clinical course. Please do not hesitate to contact me if you have any questions or concerns. This medical document was created using an electronic medical record system with [email or web address] dictation system. Although these documentations are being carefully reviewed, there may still be some phonetic and typographical changes. The errors are purely typographical, due to imperfection on the software program, and do not reflect any compromise in the patient's medical care. Dietary Evaluation Review Comments: 1) If patient remains NPO > 7 days, consider EN/TPN to meet at least 75% estimated needs 2) If GI route is preferred, consider Nepro @ 25 mL/hr goal rate as tolerated. EN regimen will provide 1080 kcals, 49g Pro, and 447 mL free H2O per 24 hrs. EN regimen will meet ~90% estimated daily energy needs and ~47% estimated daily protein needs 3) Initiate Nephro-Susan @ 1 tb qd 4) Advance to 60g CCHO renal standard diet when medically feasible, pending [facility] approval 5) Follow-up with nephrology, cardiology, and pulmonology 6) Continue to monitor I&O, labs, and skin integrity Expected Outcomes/Goals: 1) patient to receive nutrition support within 7 days of NPO status 2) labs to improve 3) wound to improve 4) patient to be extubated and diet to advance 5) f/u in 2-3 days Plan discussed with: Patient, Other (DAVID Eldridge) NAE BELLAMY MD July 04, 2024 22:35
[2024-07-05] VITALS (11 sets, daily range): BP systolic 113–156; BP diastolic 53–70; PULSE 65–89; RESP 16–19; TEMP 97.4–99.8; O2SAT 90–99
--- NOTE | 2024-07-05 09:26 | DVHPN2 ---
Progress Note - Dictate Date Seen: July 05, 2024 Medical Necessity Reason Pt with a Central, PICC or Fol: Yes The following are medically ne: Eagle Catheter Reason for eagle catheter: Strict I&O Subjective Patient is alert but totally confused No complaints though Seems to understand basic sentences vital signs Vital Sign Date Time Temp Pulse Resp B/P (MAP) Pulse Ox O2 Delivery O2 Flow Rate FiO2 07/05/24 07:53 82 18 93 Nasal Cannula* 4 36 07/05/24 05:00 98.1 140/70 (93) 98.1 Total Intake and Output 07/04/24 07/04/24 07/05/24 15:00 23:00 07:00 Intake Total 340 ml 240 ml Balance 340 ml 240 ml medications Current Medications Medications Dose Ordered Sig/Eric Route Start Time Stop Time Status Last Admin Dose Admin Ondansetron HCl 4 mg Q4HP PRN IV 06/11/24 02:00 Nitroglycerin 0.4 mg Q5MINP PRN SL 06/11/24 02:00 Albuterol 2.5 mg Q4HPRN PRN NEB 06/11/24 02:00 06/29/24 21:59 2.5 MG Ipratropium [place] 0.5 mg Q4HPRN PRN NEB 06/11/24 02:00 06/29/24 21:59 0.5 MG Acetaminophen 650 mg Q6HP PRN GT 06/11/24 23:45 06/12/24 02:48 650 MG Nicardipine HCl 250 ml @ 50 mls/hr Q5H IV 06/13/24 14:45 UNV Hydralazine HCl 10 mg Q6HPRN PRN IV 06/17/24 00:00 07/01/24 17:42 10 MG Dopamine HCl/ Dextrose 250 ml @ 15.544 mls/ hr Q16H5M IV 06/21/24 11:00 UNV Metoprolol Tartrate 50 mg BID PO 06/23/24 22:00 07/04/24 21:29 50 MG Amlodipine Besylate 10 mg DAILY PO 06/24/24 10:00 07/04/24 10:23 10 MG Clonidine HCl 0.2 mg Q7D TD 06/25/24 14:30 07/02/24 14:56 0.2 MG Famotidine 10 mg EOD PO 06/27/24 10:00 07/03/24 10:32 10 MG Heparin Sodium (Porcine) 2,300 units AMANDA PRN IV 06/26/24 15:30 Cancel Acetaminophen/ Hydrocodone Bitart 1 tab Q6HPRN PRN PO 06/26/24 22:30 07/01/24 20:42 1 TAB Morphine Sulfate 2 mg Q4HPRN PRN IV 06/27/24 00:45 07/01/24 22:11 2 MG Nifedipine 90 mg DAILY PO 06/28/24 10:00 07/04/24 10:24 90 MG Fluconazole 100 mg HS PO 06/27/24 22:00 07/04/24 21:29 100 MG Lorazepam 1 mg Q6HP PRN IV 07/01/24 11:15 07/03/24 21:11 1 MG objective Alert Disoriented Lungs Diminished air entry at bases CV:: RR, no pericardial rub Abdomen: soft, mildly distended, low BS No edema of legs laboratory and microbiology Laboratory Tests 07/05/24 04:53 07/04/24 07:10 Test 07/04/24 07:10 Range/Units Serum Glucose 95 74-106 mg/dL Problem List End-stage renal disease on HD Anemia of renal disease. Pneumonia Acute hypoxic Respiratory failure, s/p extubation Subacute stroke. T-spine fracture Encephalopathy Plan: HS is on MWF schedule Stable from nephrology standpoint Fluid restriction less than 1 L per day ANANTH post HD as needed, goal Hb: 10-11 g/dl Preparing for transfer to SNF Dietary Evaluation Review Comments: 1) If patient remains NPO > 7 days, consider EN/TPN to meet at least 75% estimated needs 2) If GI route is preferred, consider Nepro @ 25 mL/hr goal rate as tolerated. EN regimen will provide 1080 kcals, 49g Pro, and 447 mL free H2O per 24 hrs. EN regimen will meet ~90% estimated daily energy needs and ~47% estimated daily protein needs 3) Initiate Nephro-Susan @ 1 tb qd 4) Advance to 60g CCHO renal standard diet when medically feasible, pending [employer] approval 5) Follow-up with nephrology, cardiology, and pulmonology 6) Continue to monitor I&O, labs, and skin integrity Expected Outcomes/Goals: 1) patient to receive nutrition support within 7 days of NPO status 2) labs to improve 3) wound to improve 4) patient to be extubated and diet to advance 5) f/u in 2-3 days Plan discussed with: Patient STEFANIE SAMUEL MD July 05, 2024 09:26
--- NOTE | 2024-07-05 11:52 | DVHPN2 ---
Progress Note - Dictate Date Seen: July 05, 2024 Medical Necessity Reason Pt with a Central, PICC or Fol: Yes The following are medically ne: Eagle Catheter Reason for eagle catheter: Strict I&O Subjective Patient's mentation appears to be improved significant in the last 24 hours. Patient is more alert and awake cooperative. Knows her name and able to tell me that she is in the hospital. vital signs Vital Sign Date Time Temp Pulse Resp B/P (MAP) Pulse Ox O2 Delivery O2 Flow Rate FiO2 07/05/24 09:35 113/62 07/05/24 09:34 77 07/05/24 09:00 97.6 18 99 97.6 07/05/24 07:53 Nasal Cannula* 4 36 Total Intake and Output 07/04/24 07/04/24 07/05/24 15:00 23:00 07:00 Intake Total 340 ml 240 ml Balance 340 ml 240 ml medications Current Medications Medications Dose Ordered Sig/Eric Route Start Time Stop Time Status Last Admin Dose Admin Ondansetron HCl 4 mg Q4HP PRN IV 06/11/24 02:00 Nitroglycerin 0.4 mg Q5MINP PRN SL 06/11/24 02:00 Albuterol 2.5 mg Q4HPRN PRN NEB 06/11/24 02:00 06/29/24 21:59 2.5 MG Ipratropium [place] 0.5 mg Q4HPRN PRN NEB 06/11/24 02:00 06/29/24 21:59 0.5 MG Acetaminophen 650 mg Q6HP PRN GT 06/11/24 23:45 06/12/24 02:48 650 MG Nicardipine HCl 250 ml @ 50 mls/hr Q5H IV 06/13/24 14:45 UNV Hydralazine HCl 10 mg Q6HPRN PRN IV 06/17/24 00:00 07/01/24 17:42 10 MG Dopamine HCl/ Dextrose 250 ml @ 15.544 mls/ hr Q16H5M IV 06/21/24 11:00 UNV Metoprolol Tartrate 50 mg BID PO 06/23/24 22:00 07/05/24 09:34 50 MG Amlodipine Besylate 10 mg DAILY PO 06/24/24 10:00 07/05/24 09:35 10 MG Clonidine HCl 0.2 mg Q7D TD 06/25/24 14:30 07/02/24 14:56 0.2 MG Famotidine 10 mg EOD PO 06/27/24 10:00 07/05/24 09:34 10 MG Heparin Sodium (Porcine) 2,300 units AMANDA PRN IV 06/26/24 15:30 Cancel Acetaminophen/ Hydrocodone Bitart 1 tab Q6HPRN PRN PO 06/26/24 22:30 07/01/24 20:42 1 TAB Morphine Sulfate 2 mg Q4HPRN PRN IV 06/27/24 00:45 07/01/24 22:11 2 MG Nifedipine 90 mg DAILY PO 06/28/24 10:00 07/05/24 09:34 90 MG Fluconazole 100 mg HS PO 06/27/24 22:00 07/04/24 21:29 100 MG Lorazepam 1 mg Q6HP PRN IV 07/01/24 11:15 07/03/24 21:11 1 MG objective Alert awake oriented to place and person. HEENT neck supple no JVD pupils equal round react to light. Heart regular rate and rhythm S1-S2 without murmurs. Lungs fair air movement chest tube will expansion no rales wheezes. Abdomen is soft nontender nondistended positive bowel sounds. Extremities no edema positive pulses. Neurologically no focal deficits noted. Able to move all four extremities laboratory and microbiology Laboratory Tests 07/05/24 04:53 07/04/24 07:10 Test 07/04/24 07:10 Range/Units Serum Glucose 95 74-106 mg/dL Assessment/Plan 1. Acute hypoxic respiratory failure resolved 2. 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 Hypertensive emergency with the end-organ involvement 5. End-stage renal disease on hemodialysis received hemodialysis on06/14 6. Coronary artery disease Patient's mentation has improved. We will continue physical therapy. Reconsult social Service to prepare her for discharge to a residential facility with [facility] dialysis 3 times a day. Continue hemodialysis while she is in the hospital. Continue rest of supportive care and treatment. She is taking her oral medications and her diet has also improved. Discussed with the nurse regarding care plan Dietary Evaluation Review Comments: 1) If patient remains NPO > 7 days, consider EN/TPN to meet at least 75% estimated needs 2) If GI route is preferred, consider Nepro @ 25 mL/hr goal rate as tolerated. EN regimen will provide 1080 kcals, 49g Pro, and 447 mL free H2O per 24 hrs. EN regimen will meet ~90% estimated daily energy needs and ~47% estimated daily protein needs 3) Initiate Nephro-Susan @ 1 tb qd 4) Advance to 60g CCHO renal standard diet when medically feasible, pending [facility] approval 5) Follow-up with nephrology, cardiology, and pulmonology 6) Continue to monitor I&O, labs, and skin integrity Expected Outcomes/Goals: 1) patient to receive nutrition support within 7 days of NPO status 2) labs to improve 3) wound to improve 4) patient to be extubated and diet to advance 5) f/u in 2-3 days Plan discussed with: Other BRIANNE CADE MD July 05, 2024 11:52
--- NOTE | 2024-07-05 19:44 | DVHPN2 ---
Progress Note - Dictate Date Seen: July 05, 2024 Medical Necessity Reason Pt with a Central, PICC or Fol: Yes The following are medically ne: Eagle Catheter Reason for eagle catheter: Strict I&O Subjective Patient seen and examined at bedside. On supplemental oxygen Overnight events reviewed. vital signs Vital Sign Date Time Temp Pulse Resp B/P (MAP) Pulse Ox O2 Delivery O2 Flow Rate FiO2 07/05/24 17:05 98.7 88 19 128/63 (84) 94 98.7 07/05/24 07:53 Nasal Cannula* 4 36 Total Intake and Output 07/04/24 07/04/24 07/05/24 15:00 23:00 07:00 Intake Total 340 ml 240 ml Balance 340 ml 240 ml medications Current Medications Medications Dose Ordered Sig/Eric Route Start Time Stop Time Status Last Admin Dose Admin Ondansetron HCl 4 mg Q4HP PRN IV 06/11/24 02:00 Nitroglycerin 0.4 mg Q5MINP PRN SL 06/11/24 02:00 Albuterol 2.5 mg Q4HPRN PRN NEB 06/11/24 02:00 06/29/24 21:59 2.5 MG Ipratropium [place] 0.5 mg Q4HPRN PRN NEB 06/11/24 02:00 06/29/24 21:59 0.5 MG Acetaminophen 650 mg Q6HP PRN GT 06/11/24 23:45 06/12/24 02:48 650 MG Nicardipine HCl 250 ml @ 50 mls/hr Q5H IV 06/13/24 14:45 UNV Hydralazine HCl 10 mg Q6HPRN PRN IV 06/17/24 00:00 07/01/24 17:42 10 MG Dopamine HCl/ Dextrose 250 ml @ 15.544 mls/ hr Q16H5M IV 06/21/24 11:00 UNV Metoprolol Tartrate 50 mg BID PO 06/23/24 22:00 07/05/24 09:34 50 MG Amlodipine Besylate 10 mg DAILY PO 06/24/24 10:00 07/05/24 09:35 10 MG Clonidine HCl 0.2 mg Q7D TD 06/25/24 14:30 07/02/24 14:56 0.2 MG Famotidine 10 mg EOD PO 06/27/24 10:00 07/05/24 09:34 10 MG Heparin Sodium (Porcine) 2,300 units AMANDA PRN IV 06/26/24 15:30 Cancel Acetaminophen/ Hydrocodone Bitart 1 tab Q6HPRN PRN PO 06/26/24 22:30 07/01/24 20:42 1 TAB Morphine Sulfate 2 mg Q4HPRN PRN IV 06/27/24 00:45 07/01/24 22:11 2 MG Nifedipine 90 mg DAILY PO 06/28/24 10:00 07/05/24 09:34 90 MG Lorazepam 1 mg Q6HP PRN IV 07/01/24 11:15 07/03/24 21:11 1 MG Aspirin 81 mg DAILY PO 07/06/24 10:00 Atorvastatin Calcium 40 mg HS PO 07/05/24 22:00 objective Gen.: Patient lying in bed in no apparent distress. On supplemental oxygen Head: Normocephalic, atraumatic. Eyes: EOMI/PERRLA. Ears: Normal hearing. Normal anatomy. Neck/trachea: Trachea midline, supple. Nose: Normal external anatomy. Mouth: Moist mucous membranes. Chest: Decreased air entry bilaterally. No wheezing or rhonchi. Cardiovascular: Positive S1, positive S2. Regular rate and rhythm. Abdomen: Positive bowel sounds in all 4 quadrants. Soft, non-tender, non- distended. : Deferred. Rectal: Deferred. Skin: Warm, dry. Intact. Extremities: 2+ radial pulses bilaterally. No lower extremity edema. Neuro: Awake, alert, oriented x3. No gross motor or sensory deficits. Cranial nerves II through XII intact. Gait not assessed laboratory and microbiology Laboratory Tests 07/05/24 04:53 07/04/24 07:10 Test 07/04/24 07:10 Range/Units Serum Glucose 95 74-106 mg/dL Assessment/Plan Impression: Acute hypoxic respiratory failure Acute CVA Acute encephalopathy ESRD, on hemodialysis Pulmonary edema Shock Obesity BMI 33.3 Events: Remains on supplemental oxygen On 4 LPM NC Taper O2 as tolerated Head of bed elevation Aspiration precautions Continue antibiotics. Incentive spirometry Antihypertensive medication - BP control Pepcid for GI prophylaxis HD per Nephrology Monitor renal function Creatinine trending down, 6.45 -->3.62. Nephrology recs appreciated Monitor electrolytes. Supplement as necessary. Monitor ins and outs. Physical therapy Disposition per hospitalist. Labs and imaging reviewed Plan: S/p extubation Supplemental oxygen Titrate to keep O2 sats above 92%. Monitor blood pressure Continue antibiotics. F/u cultures. Bronchodilators PRN Accu-Cheks, ISS Echo reviewed Cardiology recs appreciated Pressors as necessary for hemodynamic support Titrate to keep mean arterial pressure greater than 65 mmHg. HD per Nephrology Monitor renal function Monitor electrolytes. Supplement as necessary. Monitor ins and outs. Maintain euvolemia. GI prophylaxis. DVT prophylaxis. Prognosis: Poor given patient's multiple co-morbidities. Rest of plan per hospitalist and other consultants. Thank you, [employer] Jose, for allowing me to participate in this patient's care. Further recommendations will depend on the patient's clinical course. Please do not hesitate to contact me if you have any questions or concerns. This medical document was created using an electronic medical record system with [employer] dictation system. Although these documentations are being carefully reviewed, there may still be some phonetic and typographical changes. The errors are purely typographical, due to imperfection on the software program, and do not reflect any compromise in the patient's medical care. Dietary Evaluation Review Comments: 1) If patient remains NPO > 7 days, consider EN/TPN to meet at least 75% estimated needs 2) If GI route is preferred, consider Nepro @ 25 mL/hr goal rate as tolerated. EN regimen will provide 1080 kcals, 49g Pro, and 447 mL free H2O per 24 hrs. EN regimen will meet ~90% estimated daily energy needs and ~47% estimated daily protein needs 3) Initiate Nephro-Susan @ 1 tb qd 4) Advance to 60g [facility] renal standard diet when medically feasible, pending [facility] approval 5) Follow-up with nephrology, cardiology, and pulmonology 6) Continue to monitor I&O, labs, and skin integrity Expected Outcomes/Goals: 1) patient to receive nutrition support within 7 days of NPO status 2) labs to improve 3) wound to improve 4) patient to be extubated and diet to advance 5) f/u in 2-3 days Plan discussed with: Patient, Other (DAVID Rae) NAE BELLAMY MD July 05, 2024 19:44
[2024-07-05] MEDS: ONDANSETRON HCL 4 MG/2 ML VIAL IV PRN (20:16)
[2024-07-05] MEDS: ATORVASTATIN 20 MG TAB PO SCH (21:45)
--- NOTE | 2024-07-05 22:28 | DVHPN2 ---
Progress Note - Dictate Date Seen: July 05, 2024 Medical Necessity Reason Pt with a Central, PICC or Fol: Yes The following are medically ne: Eagle Catheter Reason for eagle catheter: Strict I&O Subjective Patient was seen and evaluated in follow up. Sitter is at bedside. Patient appears more awake and alert today. Mentation has improved. BUN 41, [employer] 3.62. Telemetry reviewed. vital signs Vital Sign Date Time Temp Pulse Resp B/P (MAP) Pulse Ox O2 Delivery O2 Flow Rate FiO2 07/05/24 09:35 113/62 07/05/24 09:34 77 07/05/24 09:00 97.6 18 99 97.6 07/05/24 07:53 Nasal Cannula* 4 36 Total Intake and Output 07/04/24 07/04/24 07/05/24 15:00 23:00 07:00 Intake Total 340 ml 240 ml Balance 340 ml 240 ml medications Current Medications Medications Dose Ordered Sig/Eric Route Start Time Stop Time Status Last Admin Dose Admin Ondansetron HCl 4 mg Q4HP PRN IV 06/11/24 02:00 Nitroglycerin 0.4 mg Q5MINP PRN SL 06/11/24 02:00 Albuterol 2.5 mg Q4HPRN PRN NEB 06/11/24 02:00 06/29/24 21:59 2.5 MG Ipratropium [place] 0.5 mg Q4HPRN PRN NEB 06/11/24 02:00 06/29/24 21:59 0.5 MG Acetaminophen 650 mg Q6HP PRN GT 06/11/24 23:45 06/12/24 02:48 650 MG Nicardipine HCl 250 ml @ 50 mls/hr Q5H IV 06/13/24 14:45 UNV Hydralazine HCl 10 mg Q6HPRN PRN IV 06/17/24 00:00 07/01/24 17:42 10 MG Dopamine HCl/ Dextrose 250 ml @ 15.544 mls/ hr Q16H5M IV 06/21/24 11:00 UNV Metoprolol Tartrate 50 mg BID PO 06/23/24 22:00 07/05/24 09:34 50 MG Amlodipine Besylate 10 mg DAILY PO 06/24/24 10:00 07/05/24 09:35 10 MG Clonidine HCl 0.2 mg Q7D TD 06/25/24 14:30 07/02/24 14:56 0.2 MG Famotidine 10 mg EOD PO 06/27/24 10:00 07/05/24 09:34 10 MG Heparin Sodium (Porcine) 2,300 units AMANDA PRN IV 06/26/24 15:30 Cancel Acetaminophen/ Hydrocodone Bitart 1 tab Q6HPRN PRN PO 06/26/24 22:30 07/01/24 20:42 1 TAB Morphine Sulfate 2 mg Q4HPRN PRN IV 06/27/24 00:45 07/01/24 22:11 2 MG Nifedipine 90 mg DAILY PO 06/28/24 10:00 07/05/24 09:34 90 MG Lorazepam 1 mg Q6HP PRN IV 07/01/24 11:15 07/03/24 21:11 1 MG Aspirin 81 mg DAILY PO 07/06/24 10:00 UNV Atorvastatin Calcium 40 mg HS PO 07/05/24 22:00 objective GENERAL: Alert and oriented x 3. No acute distress. EYES: PERRL, EOMI. Anicteric. HENT: Moist mucous membranes. LUNGS: Decreased breath sounds. CARDIOVASCULAR: Regular rate and rhythm. ABDOMEN: Soft, nontender and nondistended. EXTREMITIES: No edema. NEUROLOGIC: No focal neurological deficits. SKIN: Warm, dry. laboratory and microbiology Laboratory Tests 07/05/24 04:53 07/04/24 07:10 Test 07/04/24 07:10 Range/Units Serum Glucose 95 74-106 mg/dL Problem List Acute CVA. Hypertensive emergency. Questionable coronary artery disease. Moderate pericardial effusion. Acute hypoxic respiratory failure. End-stage renal disease on hemodialysis. History of T12 compression fracture. Assessment/Plan Continued all current supportive medical care. Morphine and [place] for pain management. Amlodipine, Clonidine, Nifedipine. IV antibiotics as ordered. IV Hydralazine for SBP >160. Metoprolol. Additional plan as per the hospital course. Dietary Evaluation Review Comments: 1) If patient remains NPO > 7 days, consider EN/TPN to meet at least 75% estimated needs 2) If GI route is preferred, consider Nepro @ 25 mL/hr goal rate as tolerated. EN regimen will provide 1080 kcals, 49g Pro, and 447 mL free H2O per 24 hrs. EN regimen will meet ~90% estimated daily energy needs and ~47% estimated daily protein needs 3) Initiate Nephro-Susan @ 1 tb qd 4) [facility] renal standard diet when medically feasible, pending [facility] approval 5) Follow-up with nephrology, cardiology, and pulmonology 6) Continue to monitor I&O, labs, and skin integrity Expected Outcomes/Goals: 1) patient to receive nutrition support within 7 days of NPO status 2) labs to improve 3) wound to improve 4) patient to be extubated and diet to advance 5) f/u in 2-3 days Plan discussed with: Patient SHAUN RAMOS MD July 05, 2024 13:08
[2024-07-06] VITALS (9 sets, daily range): BP systolic 111–133; BP diastolic 43–54; PULSE 51–87; RESP 15–20; TEMP 97.5–99; O2SAT 90–98
[2024-07-06 07:40] LABS: Basophils # (auto) 0 10 ^3/uL (0-0.2); Eosinophils # (auto) 0.1 10 ^3/uL (0-0.8); Lymphocytes # (auto) 0.6 10 ^3/uL (0.4-5.4); Monocytes # (auto) 0.2 10 ^3/uL (0-1.3); Red Blood Cells 2.24 10^6/uL (4.0-5.20)
[2024-07-06 07:44] LABS: Basophils % (auto) 0.9 % (0.0-2.0); Eosinophils % (auto) 3.1 % (0.0-7.0); Hematocrit 20.6 % (36.0-46.0); Lymphocytes % (auto) 33.9 % (10.0-50.0); Mean Corpuscular Hgb Conc. 32.7 g/dL (32.0-36.0); Mean Corpuscular Volume 91.8 fL (80.0-100.0); Monocytes % (auto) 11.1 % (0.0-12.0); Neutrophils # (auto) 0.9 10 ^3/uL (1.6-8.6); Nucleated Red Blood Cells % 0.5 %; Platelet Count (auto) 99 10^3/uL (140-450); Red Cell Distribution Width 19.4 % (11.8-14.3)
[2024-07-06 07:47] LABS: Hemoglobin 6.7 g/dL (12.2-16.2); White Blood Cell 1.8 10^3/uL (4.4-10.8)
[2024-07-06] MEDS: ASPirin-EC 81 mg tab PO SCH (10:00)
--- NOTE | 2024-07-06 12:10 | DVHPN2 ---
Progress Note - Dictate Date Seen: July 06, 2024 Medical Necessity Reason Pt with a Central, PICC or Fol: Yes Subjective No acute overnight events. Participated with physical therapy today able to walk from bed to the bathroom and back with a walker. Patient's mentation is stable however still some intermittent confusion but no agitation. This morning CBC shows patient to be anemic. No obvious signs of bleeding noted. vital signs Vital Sign Date Time Temp Pulse Resp B/P (MAP) Pulse Ox O2 Delivery O2 Flow Rate FiO2 07/06/24 10:10 69 133/54 07/06/24 08:50 97.6 15 94 97.6 07/05/24 20:00 Nasal Cannula* 4 36 Total Intake and Output 07/05/24 07/05/24 07/06/24 15:00 23:00 07:00 Intake Total 460 ml 0 ml Balance 460 ml 0 ml medications Current Medications Medications Dose Ordered Sig/Eric Route Start Time Stop Time Status Last Admin Dose Admin Ondansetron HCl 4 mg Q4HP PRN IV 06/11/24 02:00 07/05/24 20:16 4 MG Nitroglycerin 0.4 mg Q5MINP PRN SL 06/11/24 02:00 Albuterol 2.5 mg Q4HPRN PRN NEB 06/11/24 02:00 06/29/24 21:59 2.5 MG Ipratropium [place] 0.5 mg Q4HPRN PRN NEB 06/11/24 02:00 06/29/24 21:59 0.5 MG Acetaminophen 650 mg Q6HP PRN GT 06/11/24 23:45 06/12/24 02:48 650 MG Nicardipine HCl 250 ml @ 50 mls/hr Q5H IV 06/13/24 14:45 UNV Hydralazine HCl 10 mg Q6HPRN PRN IV 06/17/24 00:00 07/01/24 17:42 10 MG Dopamine HCl/ Dextrose 250 ml @ 15.544 mls/ hr Q16H5M IV 06/21/24 11:00 UNV Metoprolol Tartrate 50 mg BID PO 06/23/24 22:00 07/06/24 10:10 50 MG Amlodipine Besylate 10 mg DAILY PO 06/24/24 10:00 07/06/24 10:07 10 MG Clonidine HCl 0.2 mg Q7D TD 06/25/24 14:30 07/02/24 14:56 0.2 MG Famotidine 10 mg EOD PO 06/27/24 10:00 07/05/24 09:34 10 MG Heparin Sodium (Porcine) 2,300 units AMANDA PRN IV 06/26/24 15:30 Cancel Acetaminophen/ Hydrocodone Bitart 1 tab Q6HPRN PRN PO 06/26/24 22:30 07/05/24 21:44 1 TAB Morphine Sulfate 2 mg Q4HPRN PRN IV 06/27/24 00:45 07/01/24 22:11 2 MG Nifedipine 90 mg DAILY PO 06/28/24 10:00 07/06/24 10:08 90 MG Aspirin 81 mg DAILY PO 07/06/24 10:00 Atorvastatin Calcium 40 mg HS PO 07/05/24 22:00 07/05/24 21:45 40 MG objective Alert awake oriented to place and person. HEENT neck supple no JVD pupils equal round react to light. Heart regular rate and rhythm S1-S2 without murmurs. Lungs fair air movement chest tube will expansion no rales wheezes. Abdomen is soft nontender nondistended positive bowel sounds. Extremities no edema positive pulses. Neurologically no focal deficits noted. Able to move all four extremities laboratory and microbiology Laboratory Tests 07/06/24 06:23 07/04/24 07:10 Test 07/04/24 07:10 Range/Units Serum Glucose 95 74-106 mg/dL Assessment/Plan 1. Acute hypoxic respiratory failure resolved 2. 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 Hypertensive emergency with the end-organ involvement 5. End-stage renal disease on hemodialysis received hemodialysis on06/14 6. Coronary artery disease Continue physical therapy. Morning CBC shows anemia. We will repeat another CBC now to make sure is not a lab error. If she is anemic we will consider transfusing units of packed red blood cells. Dietary Evaluation Review Comments: 1) If patient remains NPO > 7 days, consider EN/TPN to meet at least 75% estimated needs 2) If GI route is preferred, consider Nepro @ 25 mL/hr goal rate as tolerated. EN regimen will provide 1080 kcals, 49g Pro, and 447 mL free H2O per 24 hrs. EN regimen will meet ~90% estimated daily energy needs and ~47% estimated daily protein needs 3) Initiate Nephro-Susan @ 1 tb qd 4) Advance to 60g [facility] renal standard diet when medically feasible, pending [facility] approval 5) Follow-up with nephrology, cardiology, and pulmonology 6) Continue to monitor I&O, labs, and skin integrity Expected Outcomes/Goals: 1) patient to receive nutrition support within 7 days of NPO status 2) labs to improve 3) wound to improve 4) patient to be extubated and diet to advance 5) f/u in 2-3 days Plan discussed with: Other BRIANNE CADE MD July 06, 2024 12:10
[2024-07-06 12:18] LABS: Basophils # (auto) 0 10 ^3/uL (0-0.2); Basophils % (auto) 0.8 % (0.0-2.0); Eosinophils # (auto) 0.1 10 ^3/uL (0-0.8); Eosinophils % (auto) 3.4 % (0.0-7.0); Lymphocytes # (auto) 0.5 10 ^3/uL (0.4-5.4); Monocytes # (auto) 0.2 10 ^3/uL (0-1.3); Neutrophils # (auto) 0.8 10 ^3/uL (1.6-8.6)
[2024-07-06 12:21] LABS: Hematocrit 22.9 % (36.0-46.0); Hemoglobin 7.5 g/dL (12.2-16.2); Mean Corpuscular Hemoglobin 29.7 pg (28.0-32.0); Mean Corpuscular Hgb Conc. 32.5 g/dL (32.0-36.0); Mean Corpuscular Volume 91.5 fL (80.0-100.0); Monocytes % (auto) 10.9 % (0.0-12.0); Neutrophils % (auto) 50.9 % (37.0-80.0); Nucleated Red Blood Cells % 0.6 %; Platelet Count (auto) 102 10^3/uL (140-450); Red Blood Cells 2.51 10^6/uL (4.0-5.20); Red Cell Distribution Width 19.5 % (11.8-14.3)
[2024-07-06 12:27] LABS: White Blood Cell 1.6 10^3/uL (4.4-10.8)
[2024-07-06 12:34] LABS: Anisocytosis Slight; Platelet Estimate Decreased
--- NOTE | 2024-07-06 13:20 | DVHPN2 ---
Progress Note - Dictate Date Seen: July 06, 2024 Medical Necessity Reason Pt with a Central, PICC or Fol: Yes Subjective remains intubated vital signs Vital Sign Date Time Temp Pulse Resp B/P (MAP) Pulse Ox O2 Delivery O2 Flow Rate FiO2 07/06/24 12:13 94 Nasal Cannula 5.0 07/06/24 12:13 40 07/06/24 10:10 69 133/54 07/06/24 08:50 97.6 15 97.6 Total Intake and Output 07/05/24 07/05/24 07/06/24 15:00 23:00 07:00 Intake Total 460 ml 0 ml Balance 460 ml 0 ml medications Current Medications Medications Dose Ordered Sig/Eric Route Start Time Stop Time Status Last Admin Dose Admin Ondansetron HCl 4 mg Q4HP PRN IV 06/11/24 02:00 07/05/24 20:16 4 MG Nitroglycerin 0.4 mg Q5MINP PRN SL 06/11/24 02:00 Albuterol 2.5 mg Q4HPRN PRN NEB 06/11/24 02:00 06/29/24 21:59 2.5 MG Ipratropium [place] 0.5 mg Q4HPRN PRN NEB 06/11/24 02:00 06/29/24 21:59 0.5 MG Acetaminophen 650 mg Q6HP PRN GT 06/11/24 23:45 06/12/24 02:48 650 MG Nicardipine HCl 250 ml @ 50 mls/hr Q5H IV 06/13/24 14:45 UNV Hydralazine HCl 10 mg Q6HPRN PRN IV 06/17/24 00:00 07/01/24 17:42 10 MG Dopamine HCl/ Dextrose 250 ml @ 15.544 mls/ hr Q16H5M IV 06/21/24 11:00 UNV Metoprolol Tartrate 50 mg BID PO 06/23/24 22:00 07/06/24 10:10 50 MG Amlodipine Besylate 10 mg DAILY PO 06/24/24 10:00 07/06/24 10:07 10 MG Clonidine HCl 0.2 mg Q7D TD 06/25/24 14:30 07/02/24 14:56 0.2 MG Famotidine 10 mg EOD PO 06/27/24 10:00 07/05/24 09:34 10 MG Heparin Sodium (Porcine) 2,300 units AMANDA PRN IV 06/26/24 15:30 Cancel Acetaminophen/ Hydrocodone Bitart 1 tab Q6HPRN PRN PO 06/26/24 22:30 07/05/24 21:44 1 TAB Morphine Sulfate 2 mg Q4HPRN PRN IV 06/27/24 00:45 07/01/24 22:11 2 MG Nifedipine 90 mg DAILY PO 06/28/24 10:00 07/06/24 10:08 90 MG Aspirin 81 mg DAILY PO 07/06/24 10:00 Atorvastatin Calcium 40 mg HS PO 07/05/24 22:00 07/05/24 21:45 40 MG objective Gen: On mechanical ventilation Lungs Diminished air entry at bases CV: RR, no pericardial rub Abdomen: soft, mildly distended, low BS Trace edema of legs laboratory and microbiology Laboratory Tests 07/06/24 12:00 07/06/24 06:23 07/04/24 07:10 Test 07/04/24 07:10 Range/Units Serum Glucose 95 74-106 mg/dL Assessment/Plan End-stage renal disease on HD Anemia of renal disease. Acute hypoxic Respiratory failure, extubated HTN Subacute stroke. T-spine fracture. Leukopenia Plan: HD to continue on MWF schedule Next HD on Sunday Continue Metoprolol , amlodipine and nifedipine ID consult appreciated Continue IV antibiotics ANANTH post HD as needed, goal Hb: 10-11 g/dl pending discharge to SNF Dietary Evaluation Review Comments: 1) If patient remains NPO > 7 days, consider EN/TPN to meet at least 75% estimated needs 2) If GI route is preferred, consider Nepro @ 25 mL/hr goal rate as tolerated. EN regimen will provide 1080 kcals, 49g Pro, and 447 mL free H2O per 24 hrs. EN regimen will meet ~90% estimated daily energy needs and ~47% estimated daily protein needs 3) Initiate Nephro-Susan @ 1 tb qd 4) Advance to 60g CCHO renal standard diet when medically feasible, pending [facility] approval 5) Follow-up with nephrology, cardiology, and pulmonology 6) Continue to monitor I&O, labs, and skin integrity Expected Outcomes/Goals: 1) patient to receive nutrition support within 7 days of NPO status 2) labs to improve 3) wound to improve 4) patient to be extubated and diet to advance 5) f/u in 2-3 days Plan discussed with: Patient ILANA PATINO MD July 06, 2024 13:20
--- NOTE | 2024-07-06 22:54 | DVHPN2 ---
Progress Note - Dictate Date Seen: July 06, 2024 Medical Necessity Reason Pt with a Central, PICC or Fol: Yes Subjective Patient was seen and evaluated in follow up. Sitter is at bedside. Patient participated with PT and ambulated with walker. 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 Telemetry reviewed. vital signs Vital Sign Date Time Temp Pulse Resp B/P (MAP) Pulse Ox O2 Delivery O2 Flow Rate FiO2 07/06/24 12:13 94 Nasal Cannula 5.0 07/06/24 12:13 40 07/06/24 10:10 69 133/54 07/06/24 08:50 97.6 15 97.6 Total Intake and Output 07/05/24 07/05/24 07/06/24 15:00 23:00 07:00 Intake Total 460 ml 0 ml Balance 460 ml 0 ml medications Current Medications Medications Dose Ordered Sig/Eric Route Start Time Stop Time Status Last Admin Dose Admin Ondansetron HCl 4 mg Q4HP PRN IV 06/11/24 02:00 07/05/24 20:16 4 MG Nitroglycerin 0.4 mg Q5MINP PRN SL 06/11/24 02:00 Albuterol 2.5 mg Q4HPRN PRN NEB 06/11/24 02:00 06/29/24 21:59 2.5 MG Ipratropium [place] 0.5 mg Q4HPRN PRN NEB 06/11/24 02:00 06/29/24 21:59 0.5 MG Acetaminophen 650 mg Q6HP PRN GT 06/11/24 23:45 06/12/24 02:48 650 MG Nicardipine HCl 250 ml @ 50 mls/hr Q5H IV 06/13/24 14:45 UNV Hydralazine HCl 10 mg Q6HPRN PRN IV 06/17/24 00:00 07/01/24 17:42 10 MG Dopamine HCl/ Dextrose 250 ml @ 15.544 mls/ hr Q16H5M IV 06/21/24 11:00 UNV Metoprolol Tartrate 50 mg BID PO 06/23/24 22:00 07/06/24 10:10 50 MG Amlodipine Besylate 10 mg DAILY PO 06/24/24 10:00 07/06/24 10:07 10 MG Clonidine HCl 0.2 mg Q7D TD 06/25/24 14:30 07/02/24 14:56 0.2 MG Famotidine 10 mg EOD PO 06/27/24 10:00 07/05/24 09:34 10 MG Heparin Sodium (Porcine) 2,300 units AMANDA PRN IV 06/26/24 15:30 Cancel Acetaminophen/ Hydrocodone Bitart 1 tab Q6HPRN PRN PO 06/26/24 22:30 07/05/24 21:44 1 TAB Morphine Sulfate 2 mg Q4HPRN PRN IV 06/27/24 00:45 07/01/24 22:11 2 MG Nifedipine 90 mg DAILY PO 06/28/24 10:00 07/06/24 10:08 90 MG Aspirin 81 mg DAILY PO 07/06/24 10:00 Atorvastatin Calcium 40 mg HS PO 07/05/24 22:00 07/05/24 21:45 40 MG objective GENERAL: Alert and oriented x 3. No acute distress. EYES: PERRL, EOMI. Anicteric. HENT: Moist mucous membranes. LUNGS: Decreased breath sounds. CARDIOVASCULAR: Regular rate and rhythm. ABDOMEN: Soft, nontender and nondistended. EXTREMITIES: No edema. NEUROLOGIC: No focal neurological deficits. SKIN: Warm, dry. laboratory and microbiology Laboratory Tests 07/06/24 12:00 07/06/24 06:23 07/04/24 07:10 Test 07/04/24 07:10 Range/Units Serum Glucose 95 74-106 mg/dL Problem List Acute CVA. Hypertensive emergency. Questionable coronary artery disease. Moderate pericardial effusion. Acute hypoxic respiratory failure. End-stage renal disease on hemodialysis. History of T12 compression fracture. Assessment/Plan Continued all current supportive medical care. Morphine and [place] for pain management. Amlodipine, Clonidine, Nifedipine. IV antibiotics as ordered. IV Hydralazine for SBP >160. Metoprolol. Additional plan as per the hospital course. Dietary Evaluation Review Comments: 1) If patient remains NPO > 7 days, consider EN/TPN to meet at least 75% estimated needs 2) If GI route is preferred, consider Nepro @ 25 mL/hr goal rate as tolerated. EN regimen will provide 1080 kcals, 49g Pro, and 447 mL free H2O per 24 hrs. EN regimen will meet ~90% estimated daily energy needs and ~47% estimated daily protein needs 3) Initiate Nephro-Susan @ 1 tb qd 4) Advance to 60[facility] standard diet when medically feasible, pending [facility] approval 5) Follow-up with nephrology, cardiology, and pulmonology 6) Continue to monitor I&O, labs, and skin integrity Expected Outcomes/Goals: 1) patient to receive nutrition support within 7 days of NPO status 2) labs to improve 3) wound to improve 4) patient to be extubated and diet to advance 5) f/u in 2-3 days Plan discussed with: Other SHAUN RAMOS MD July 06, 2024 13:52
--- NOTE | 2024-07-06 23:02 | DVHPN2 ---
Progress Note - Dictate Date Seen: July 06, 2024 Medical Necessity Reason Pt with a Central, PICC or Fol: Yes Subjective Patient seen and examined at bedside. On supplemental oxygen Overnight events reviewed. vital signs Vital Sign Date Time Temp Pulse Resp B/P (MAP) Pulse Ox O2 Delivery O2 Flow Rate FiO2 07/06/24 21:54 83 124/45 07/06/24 21:00 99.0 16 98 99.0 07/06/24 12:13 Nasal Cannula 5.0 07/06/24 12:13 40 Total Intake and Output 07/05/24 07/05/24 07/06/24 15:00 23:00 07:00 Intake Total 460 ml 0 ml Balance 460 ml 0 ml medications Current Medications Medications Dose Ordered Sig/Eric Route Start Time Stop Time Status Last Admin Dose Admin Ondansetron HCl 4 mg Q4HP PRN IV 06/11/24 02:00 07/05/24 20:16 4 MG Nitroglycerin 0.4 mg Q5MINP PRN SL 06/11/24 02:00 Acetaminophen 650 mg Q6HP PRN GT 06/11/24 23:45 06/12/24 02:48 650 MG Nicardipine HCl 250 ml @ 50 mls/hr Q5H IV 06/13/24 14:45 UNV Hydralazine HCl 10 mg Q6HPRN PRN IV 06/17/24 00:00 07/01/24 17:42 10 MG Dopamine HCl/ Dextrose 250 ml @ 15.544 mls/ hr Q16H5M IV 06/21/24 11:00 UNV Metoprolol Tartrate 50 mg BID PO 06/23/24 22:00 07/06/24 21:54 50 MG Amlodipine Besylate 10 mg DAILY PO 06/24/24 10:00 07/06/24 10:07 10 MG Clonidine HCl 0.2 mg Q7D TD 06/25/24 14:30 07/02/24 14:56 0.2 MG Famotidine 10 mg EOD PO 06/27/24 10:00 07/05/24 09:34 10 MG Heparin Sodium (Porcine) 2,300 units AMANDA PRN IV 06/26/24 15:30 Cancel Acetaminophen/ Hydrocodone Bitart 1 tab Q6HPRN PRN PO 06/26/24 22:30 07/06/24 21:55 1 TAB Morphine Sulfate 2 mg Q4HPRN PRN IV 06/27/24 00:45 07/06/24 18:11 2 MG Nifedipine 90 mg DAILY PO 06/28/24 10:00 07/06/24 10:08 90 MG Aspirin 81 mg DAILY PO 07/06/24 10:00 Atorvastatin Calcium 40 mg HS PO 07/05/24 22:00 07/06/24 21:53 40 MG objective Gen.: Patient lying in bed in no apparent distress. On supplemental oxygen Head: Normocephalic, atraumatic. Eyes: EOMI/PERRLA. Ears: Normal hearing. Normal anatomy. Neck/trachea: Trachea midline, supple. Nose: Normal external anatomy. Mouth: Moist mucous membranes. Chest: Decreased air entry bilaterally. No wheezing or rhonchi. Cardiovascular: Positive S1, positive S2. Regular rate and rhythm. Abdomen: Positive bowel sounds in all 4 quadrants. Soft, non-tender, non- distended. : Deferred. Rectal: Deferred. Skin: Warm, dry. Intact. Extremities: 2+ radial pulses bilaterally. No lower extremity edema. Neuro: Awake, alert, oriented x3. No gross motor or sensory deficits. Cranial nerves II through XII intact. Gait not assessed laboratory and microbiology Laboratory Tests 07/06/24 12:00 07/06/24 06:23 07/04/24 07:10 Test 07/04/24 07:10 Range/Units Serum Glucose 95 74-106 mg/dL Assessment/Plan Impression: Acute hypoxic respiratory failure Acute CVA Acute encephalopathy ESRD, on hemodialysis Pulmonary edema Shock Obesity BMI 33.3 Events: Remains on supplemental oxygen On 5 LPM NC Taper O2 as tolerated Head of bed elevation Aspiration precautions Continue antibiotics. Incentive spirometry Antihypertensive medication - BP control Pepcid for GI prophylaxis HD per Nephrology Monitor renal function Creatinine trending up, 3.62 -->4.87. Nephrology recs appreciated Monitor electrolytes. Supplement as necessary. Monitor ins and outs. Monitor hemoglobin Transfuse as necessary - keep hemoglobin above 7.0 g/dL Pain control Avoid oversedation Physical therapy Disposition per hospitalist. Labs and imaging reviewed Plan: S/p extubation Supplemental oxygen Titrate to keep O2 sats above 92%. Monitor blood pressure Continue antibiotics. F/u cultures. Bronchodilators PRN Accu-Cheks, ISS Echo reviewed Cardiology recs appreciated Pressors as necessary for hemodynamic support Titrate to keep mean arterial pressure greater than 65 mmHg. HD per Nephrology Monitor renal function Monitor electrolytes. Supplement as necessary. Monitor ins and outs. Maintain euvolemia. GI prophylaxis. DVT prophylaxis. Prognosis: Poor given patient's multiple co-morbidities. Rest of plan per hospitalist and other consultants. Thank you, INSTRUCTIONAL INTERVENTIONIST Jose, for allowing me to participate in this patient's care. Further recommendations will depend on the patient's clinical course. Please do not hesitate to contact me if you have any questions or concerns. This medical document was created using an electronic medical record system with [employer] dictation system. Although these documentations are being carefully reviewed, there may still be some phonetic and typographical changes. The errors are purely typographical, due to imperfection on the software program, and do not reflect any compromise in the patient's medical care. Dietary Evaluation Review Comments: 1) If patient remains NPO > 7 days, consider EN/TPN to meet at least 75% estimated needs 2) If GI route is preferred, consider Nepro @ 25 mL/hr goal rate as tolerated. EN regimen will provide 1080 kcals, 49g Pro, and 447 mL free H2O per 24 hrs. EN regimen will meet ~90% estimated daily energy needs and ~47% estimated daily protein needs 3) Initiate Nephro-Susan @ 1 tb qd 4) Advance to 60g CCHO renal standard diet when medically feasible, pending [facility] approval 5) Follow-up with nephrology, cardiology, and pulmonology 6) Continue to monitor I&O, labs, and skin integrity Expected Outcomes/Goals: 1) patient to receive nutrition support within 7 days of NPO status 2) labs to improve 3) wound to improve 4) patient to be extubated and diet to advance 5) f/u in 2-3 days Plan discussed with: Patient, Other (RN Kyra) NAE BELLAMY MD July 06, 2024 23:02
[2024-07-07] VITALS (8 sets, daily range): BP systolic 116–143; BP diastolic 50–94; PULSE 71–97; RESP 16–20; TEMP 97.6–102; O2SAT 89–98
[2024-07-07] MEDS ORDERED: SODIUM CHL 0.9% 1000 ML BAG XX ONE (07:00)
[2024-07-07 07:39] LABS: Basophils # (auto) 0 10 ^3/uL (0-0.2); Basophils % (auto) 0.8 % (0.0-2.0); Eosinophils # (auto) 0 10 ^3/uL (0-0.8); Eosinophils % (auto) 1.2 % (0.0-7.0); Hematocrit 25.4 % (36.0-46.0); Hemoglobin 7.8 g/dL (12.2-16.2); Lymphocytes # (auto) 0.6 10 ^3/uL (0.4-5.4); Lymphocytes % (auto) 22.1 % (10.0-50.0); Mean Corpuscular Hemoglobin 29.9 pg (28.0-32.0); Mean Corpuscular Hgb Conc. 30.5 g/dL (32.0-36.0); Mean Corpuscular Volume 97.9 fL (80.0-100.0); Monocytes # (auto) 0.3 10 ^3/uL (0-1.3); Monocytes % (auto) 8.9 % (0.0-12.0); Neutrophils # (auto) 1.9 10 ^3/uL (1.6-8.6); Nucleated Red Blood Cells % 0.4 %; Platelet Count (auto) 110 10^3/uL (140-450); Red Blood Cells 2.59 10^6/uL (4.0-5.20); White Blood Cell 2.8 10^3/uL (4.4-10.8)
[2024-07-07 09:10] LABS: Anion Gap 15 (5-15); Carbon Dioxide 30 mmol/L (20-31); Potassium 4.4 mmol/L (3.5-5.1); Sodium 139 mmol/L (136-145)
[2024-07-07 09:11] LABS: Chloride 94 mmol/L (98-107)
[2024-07-07 09:12] LABS: Calcium 11.1 mg/dL (8.7-10.4)
[2024-07-07 09:16] LABS: BUN/Creatinine Ratio 7.5 (10.0-20.0); Glucose 99 mg/dL (74-106)
[2024-07-07 09:20] LABS: Blood Urea Nitrogen 47 mg/dL (9-23)
--- NOTE | 2024-07-07 11:45 | DVHPN2 ---
Progress Note - Dictate Date Seen: July 07, 2024 Medical Necessity Reason Pt with a Central, PICC or Fol: Yes vital signs Vital Sign Date Time Temp Pulse Resp B/P (MAP) Pulse Ox O2 Delivery O2 Flow Rate FiO2 07/07/24 11:17 97 16 116/94 07/07/24 09:00 102.0 89 102.0 07/06/24 20:00 Nasal Cannula* 4 36 Total Intake and Output 07/06/24 07/06/24 07/07/24 15:00 23:00 07:00 Intake Total 850 ml 100 ml Output Total 0 ml Balance 850 ml 100 ml medications Current Medications Medications Dose Ordered Sig/Eric Route Start Time Stop Time Status Last Admin Dose Admin Ondansetron HCl 4 mg Q4HP PRN IV 06/11/24 02:00 07/05/24 20:16 4 MG Nitroglycerin 0.4 mg Q5MINP PRN SL 06/11/24 02:00 Acetaminophen 650 mg Q6HP PRN GT 06/11/24 23:45 06/12/24 02:48 650 MG Nicardipine HCl 250 ml @ 50 mls/hr Q5H IV 06/13/24 14:45 UNV Hydralazine HCl 10 mg Q6HPRN PRN IV 06/17/24 00:00 07/01/24 17:42 10 MG Dopamine HCl/ Dextrose 250 ml @ 15.544 mls/ hr Q16H5M IV 06/21/24 11:00 UNV Metoprolol Tartrate 50 mg BID PO 06/23/24 22:00 07/06/24 21:54 50 MG Amlodipine Besylate 10 mg DAILY PO 06/24/24 10:00 07/06/24 10:07 10 MG Clonidine HCl 0.2 mg Q7D TD 06/25/24 14:30 07/02/24 14:56 0.2 MG Famotidine 10 mg EOD PO 06/27/24 10:00 07/05/24 09:34 10 MG Heparin Sodium (Porcine) 2,300 units AMANDA PRN IV 06/26/24 15:30 Cancel Acetaminophen/ Hydrocodone Bitart 1 tab Q6HPRN PRN PO 06/26/24 22:30 07/06/24 21:55 1 TAB Morphine Sulfate 2 mg Q4HPRN PRN IV 06/27/24 00:45 07/07/24 11:17 2 MG Nifedipine 90 mg DAILY PO 06/28/24 10:00 07/06/24 10:08 90 MG Aspirin 81 mg DAILY PO 07/06/24 10:00 Atorvastatin Calcium 40 mg HS PO 07/05/24 22:00 07/06/24 21:53 40 MG laboratory and microbiology Laboratory Tests 07/07/24 06:57 Test 07/07/24 06:57 Range/Units Serum Glucose 99 74-106 mg/dL Assessment/Plan Impression: Acute hypoxic respiratory failure Altered mental status Acute CVA Acute encephalopathy ESRD on hemodialysis Patient seen and examined Events: S/p extubation Low oxygen requirements On 4 liters nasal cannula No distress S/p HD Labs and imaging reviewed Plan: Supplemental oxygen Titrate FIO2 to keep O2 saturation above 90%. Incentive spirometry Monitor renal function HD as per nephrology Management deferred Monitor electrolytes Supplement as necessary nutrition/glycemic control disposition per primary DVT prophylaxis. Dietary Evaluation Review Comments: 1) If patient remains NPO > 7 days, consider EN/TPN to meet at least 75% estimated needs 2) If GI route is preferred, consider Nepro @ 25 mL/hr goal rate as tolerated. EN regimen will provide 1080 kcals, 49g Pro, and 447 mL free H2O per 24 hrs. EN regimen will meet ~90% estimated daily energy needs and ~47% estimated daily protein needs 3) Initiate Nephro-Susan @ 1 tb qd 4) Advance to 60g CCHO renal standard diet when medically feasible, pending [facility] approval 5) Follow-up with nephrology, cardiology, and pulmonology 6) Continue to monitor I&O, labs, and skin integrity Expected Outcomes/Goals: 1) patient to receive nutrition support within 7 days of NPO status 2) labs to improve 3) wound to improve 4) patient to be extubated and diet to advance 5) f/u in 2-3 days Plan discussed with: Patient MECHE STEWARD MD July 07, 2024 11:45
[2024-07-07] MEDS ORDERED: ACETAMINOPHEN 325 MG TAB PO PRN (14:15)
--- NOTE | 2024-07-07 14:57 | DVHPN2 ---
Progress Note - Dictate Date Seen: July 07, 2024 Medical Necessity Reason Pt with a Central, PICC or Fol: Yes Subjective no new symptoms vital signs Vital Sign Date Time Temp Pulse Resp B/P (MAP) Pulse Ox O2 Delivery O2 Flow Rate FiO2 07/07/24 12:44 98.1 81 20 125/50 (75) 96 98.1 07/07/24 08:00 Nasal Cannula* 4 36 Total Intake and Output 07/06/24 07/06/24 07/07/24 15:00 23:00 07:00 Intake Total 850 ml 100 ml Output Total 0 ml Balance 850 ml 100 ml medications Current Medications Medications Dose Ordered Sig/Eric Route Start Time Stop Time Status Last Admin Dose Admin Ondansetron HCl 4 mg Q4HP PRN IV 06/11/24 02:00 07/05/24 20:16 4 MG Nitroglycerin 0.4 mg Q5MINP PRN SL 06/11/24 02:00 Acetaminophen 650 mg Q6HP PRN GT 06/11/24 23:45 06/12/24 02:48 650 MG Nicardipine HCl 250 ml @ 50 mls/hr Q5H IV 06/13/24 14:45 UNV Hydralazine HCl 10 mg Q6HPRN PRN IV 06/17/24 00:00 07/01/24 17:42 10 MG Dopamine HCl/ Dextrose 250 ml @ 15.544 mls/ hr Q16H5M IV 06/21/24 11:00 UNV Metoprolol Tartrate 50 mg BID PO 06/23/24 22:00 07/06/24 21:54 50 MG Amlodipine Besylate 10 mg DAILY PO 06/24/24 10:00 07/06/24 10:07 10 MG Clonidine HCl 0.2 mg Q7D TD 06/25/24 14:30 07/02/24 14:56 0.2 MG Famotidine 10 mg EOD PO 06/27/24 10:00 07/05/24 09:34 10 MG Heparin Sodium (Porcine) 2,300 units AMANDA PRN IV 06/26/24 15:30 Cancel Acetaminophen/ Hydrocodone Bitart 1 tab Q6HPRN PRN PO 06/26/24 22:30 07/06/24 21:55 1 TAB Morphine Sulfate 2 mg Q4HPRN PRN IV 06/27/24 00:45 07/07/24 11:17 2 MG Nifedipine 90 mg DAILY PO 06/28/24 10:00 07/06/24 10:08 90 MG Atorvastatin Calcium 40 mg HS PO 07/05/24 22:00 07/06/24 21:53 40 MG Acetaminophen 650 mg Q4HP PRN PO 07/07/24 14:15 UNV objective Gen: On mechanical ventilation Lungs Diminished air entry at bases CV: RR, no pericardial rub Abdomen: soft, mildly distended, low BS Trace edema of legs laboratory and microbiology Laboratory Tests 07/07/24 06:57 Test 07/07/24 06:57 Range/Units Serum Glucose 99 74-106 mg/dL Assessment/Plan End-stage renal disease on HD Anemia of renal disease. Acute hypoxic Respiratory failure, extubated HTN Subacute stroke. T-spine fracture. Leukopenia Plan: HD today HD to continue on MWF schedule Continue Metoprolol , amlodipine and nifedipine ID consult appreciated Continue IV antibiotics ANANTH post HD as needed, goal Hb: 10-11 g/dl pending discharge to SNF Dietary Evaluation Review Comments: 1) If patient remains NPO > 7 days, consider EN/TPN to meet at least 75% estimated needs 2) If GI route is preferred, consider Nepro @ 25 mL/hr goal rate as tolerated. EN regimen will provide 1080 kcals, 49g Pro, and 447 mL free H2O per 24 hrs. EN regimen will meet ~90% estimated daily energy needs and ~47% estimated daily protein needs 3) Initiate Nephro-Susan @ 1 tb qd 4) Advance to [facility] standard diet when medically feasible, pending [facility] approval 5) Follow-up with nephrology, cardiology, and pulmonology 6) Continue to monitor I&O, labs, and skin integrity Expected Outcomes/Goals: 1) patient to receive nutrition support within 7 days of NPO status 2) labs to improve 3) wound to improve 4) patient to be extubated and diet to advance 5) f/u in 2-3 days Plan discussed with: Patient, Other ILANA PATINO MD July 07, 2024 14:57
--- NOTE | 2024-07-07 16:57 | DVHPN2 ---
Progress Note - Dictate Date Seen: July 07, 2024 Medical Necessity Reason Pt with a Central, PICC or Fol: Yes Subjective No acute overnight events. Patient is still remains confused. Apparently had a spike of fever this morning per nurse. vital signs Vital Sign Date Time Temp Pulse Resp B/P (MAP) Pulse Ox O2 Delivery O2 Flow Rate FiO2 07/07/24 16:54 98.5 75 16 131/61 (84) 96 98.5 07/07/24 08:00 Nasal Cannula* 4 36 Total Intake and Output 07/06/24 07/06/24 07/07/24 15:00 23:00 07:00 Intake Total 850 ml 100 ml Output Total 0 ml Balance 850 ml 100 ml medications Current Medications Medications Dose Ordered Sig/Eric Route Start Time Stop Time Status Last Admin Dose Admin Ondansetron HCl 4 mg Q4HP PRN IV 06/11/24 02:00 07/05/24 20:16 4 MG Nitroglycerin 0.4 mg Q5MINP PRN SL 06/11/24 02:00 Acetaminophen 650 mg Q6HP PRN GT 06/11/24 23:45 06/12/24 02:48 650 MG Nicardipine HCl 250 ml @ 50 mls/hr Q5H IV 06/13/24 14:45 UNV Hydralazine HCl 10 mg Q6HPRN PRN IV 06/17/24 00:00 07/01/24 17:42 10 MG Dopamine HCl/ Dextrose 250 ml @ 15.544 mls/ hr Q16H5M IV 06/21/24 11:00 UNV Metoprolol Tartrate 50 mg BID PO 06/23/24 22:00 07/06/24 21:54 50 MG Amlodipine Besylate 10 mg DAILY PO 06/24/24 10:00 07/06/24 10:07 10 MG Clonidine HCl 0.2 mg Q7D TD 06/25/24 14:30 07/02/24 14:56 0.2 MG Famotidine 10 mg EOD PO 06/27/24 10:00 07/05/24 09:34 10 MG Heparin Sodium (Porcine) 2,300 units AMANDA PRN IV 06/26/24 15:30 Cancel Acetaminophen/ Hydrocodone Bitart 1 tab Q6HPRN PRN PO 06/26/24 22:30 07/06/24 21:55 1 TAB Morphine Sulfate 2 mg Q4HPRN PRN IV 06/27/24 00:45 07/07/24 15:29 2 MG Nifedipine 90 mg DAILY PO 06/28/24 10:00 07/06/24 10:08 90 MG Atorvastatin Calcium 40 mg HS PO 07/05/24 22:00 07/06/24 21:53 40 MG Acetaminophen 650 mg Q4HP PRN PO 07/07/24 14:15 UNV objective Confused today. HEENT neck supple no JVD pupils equal round react to light. Heart regular rate and rhythm S1-S2 without murmurs. Lungs fair air movement chest tube will expansion no rales wheezes. Abdomen is soft nontender nondistended positive bowel sounds. Extremities no edema positive pulses. Neurologically no focal deficits noted. Able to move all four extremities laboratory and microbiology Laboratory Tests 07/07/24 06:57 Test 07/07/24 06:57 Range/Units Serum Glucose 99 74-106 mg/dL Assessment/Plan 1. Acute hypoxic respiratory failure resolved 2. 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 Hypertensive emergency with the end-organ involvement 5. End-stage renal disease on hemodialysis received hemodialysis on06/14 6. Coronary artery disease Hemoglobin is stable. No evidence of active bleeding. However patient did spike fever today. Patient has a left neck central line for many days. Therefore we will remove the central line and send tip for cultures. We will also repeat blood cultures and urine cultures. Tylenol for fever. Otherwise continue rest of supportive care and treatment. Follow clinical management per clinical course and pending study evaluations/results. Discussed with the nurse. Dietary Evaluation Review Comments: 1) If patient remains NPO > 7 days, consider EN/TPN to meet at least 75% estimated needs 2) If GI route is preferred, consider Nepro @ 25 mL/hr goal rate as tolerated. EN regimen will provide 1080 kcals, 49g Pro, and 447 mL free H2O per 24 hrs. EN regimen will meet ~90% estimated daily energy needs and ~47% estimated daily protein needs 3) Initiate Nephro-Susan @ 1 tb qd 4) [facility] when medically feasible, pending [facility] approval 5) Follow-up with nephrology, cardiology, and pulmonology 6) Continue to monitor I&O, labs, and skin integrity Expected Outcomes/Goals: 1) patient to receive nutrition support within 7 days of NPO status 2) labs to improve 3) wound to improve 4) patient to be extubated and diet to advance 5) f/u in 2-3 days Plan discussed with: Other BRIANNE CADE MD July 07, 2024 16:57
[2024-07-07] MEDS ORDERED: VANCOMYCIN PER PHARMACY 0 MG IV SCH (17:00)
[2024-07-07] MEDS: cefTRIAXone 1GM/50ML D5W 50 ML IV ONE (17:00)
[2024-07-07] MEDS: EPOETIN ALFA-EPBX 10,000 UNIT/1ML VIAL SC ONE (20:49)
[2024-07-07] MEDS: VANCOMYCIN 500mg/100mL 100 ML IV ONE (22:00)
--- NOTE | 2024-07-07 22:57 | DVHPN2 ---
Progress Note - Dictate Date Seen: July 07, 2024 Medical Necessity Reason Pt with a Central, PICC or Fol: Yes Subjective Patient was seen and evaluated in follow up. Sitter is at bedside. Patient is on 4 LPM NC. HGB 7.8, HCT 25.4, BUN 47, Account Resolution Specialist 6.23. Patient unable to lay flat for MRI. Telemetry reviewed. vital signs Vital Sign Date Time Temp Pulse Resp B/P (MAP) Pulse Ox O2 Delivery O2 Flow Rate FiO2 07/07/24 22:00 76 143/77 07/07/24 21:00 98.5 18 98 98.5 07/07/24 08:00 Nasal Cannula* 4 36 Total Intake and Output 07/06/24 07/06/24 07/07/24 15:00 23:00 07:00 Intake Total 850 ml 100 ml Output Total 0 ml Balance 850 ml 100 ml medications Current Medications Medications Dose Ordered Sig/Eric Route Start Time Stop Time Status Last Admin Dose Admin Ondansetron HCl 4 mg Q4HP PRN IV 06/11/24 02:00 07/05/24 20:16 4 MG Nitroglycerin 0.4 mg Q5MINP PRN SL 06/11/24 02:00 Acetaminophen 650 mg Q6HP PRN GT 06/11/24 23:45 Hold 06/12/24 02:48 650 MG Nicardipine HCl 250 ml @ 50 mls/hr Q5H IV 06/13/24 14:45 UNV Hydralazine HCl 10 mg Q6HPRN PRN IV 06/17/24 00:00 07/01/24 17:42 10 MG Dopamine HCl/ Dextrose 250 ml @ 15.544 mls/ hr Q16H5M IV 06/21/24 11:00 UNV Metoprolol Tartrate 50 mg BID PO 06/23/24 22:00 07/06/24 21:54 50 MG Amlodipine Besylate 10 mg DAILY PO 06/24/24 10:00 07/06/24 10:07 10 MG Clonidine HCl 0.2 mg Q7D TD 06/25/24 14:30 07/02/24 14:56 0.2 MG Famotidine 10 mg EOD PO 06/27/24 10:00 07/05/24 09:34 10 MG Heparin Sodium (Porcine) 2,300 units AMANDA PRN IV 06/26/24 15:30 Cancel Acetaminophen/ Hydrocodone Bitart 1 tab Q6HPRN PRN PO 06/26/24 22:30 07/06/24 21:55 1 TAB Morphine Sulfate 2 mg Q4HPRN PRN IV 06/27/24 00:45 07/07/24 15:29 2 MG Nifedipine 90 mg DAILY PO 06/28/24 10:00 07/06/24 10:08 90 MG Atorvastatin Calcium 40 mg HS PO 07/05/24 22:00 07/06/24 21:53 40 MG Acetaminophen 650 mg Q4HP PRN PO 07/07/24 14:15 Ceftriaxone Sodium 50 ml @ 100 mls/hr DAILY@09 IV 07/08/24 09:00 Vancomycin HCl 0 ml @ 0 mls/hr UD IV 07/07/24 17:00 objective GENERAL: Alert and oriented x 2. No acute distress. EYES: PERRL, EOMI. Anicteric. HENT: Moist mucous membranes. LUNGS: Decreased breath sounds. CARDIOVASCULAR: Regular rate and rhythm. ABDOMEN: Soft, nontender and nondistended. EXTREMITIES: No edema. NEUROLOGIC: No focal neurological deficits. SKIN: Warm, dry. laboratory and microbiology Laboratory Tests 07/07/24 06:57 Test 07/07/24 06:57 Range/Units Serum Glucose 99 74-106 mg/dL Problem List Acute CVA. Hypertensive emergency. Questionable coronary artery disease. Moderate pericardial effusion. Acute hypoxic respiratory failure. End-stage renal disease on hemodialysis. History of T12 compression fracture. Assessment/Plan Continued all current supportive medical care. Morphine and [place] for pain management. Amlodipine, Clonidine, Nifedipine. IV antibiotics as ordered. IV Hydralazine for SBP >160. Metoprolol. Additional plan as per the hospital course. Dietary Evaluation Review Comments: 1) If patient remains NPO > 7 days, consider EN/TPN to meet at least 75% estimated needs 2) If GI route is preferred, consider Nepro @ 25 mL/hr goal rate as tolerated. EN regimen will provide 1080 kcals, 49g Pro, and 447 mL free H2O per 24 hrs. EN regimen will meet ~90% estimated daily energy needs and ~47% estimated daily protein needs 3) Initiate Nephro-Susan @ 1 tb qd 4) Advance to 60g [facility] renal standard diet when medically feasible, pending [employer] approval 5) Follow-up with nephrology, cardiology, and pulmonology 6) Continue to monitor I&O, labs, and skin integrity Expected Outcomes/Goals: 1) patient to receive nutrition support within 7 days of NPO status 2) labs to improve 3) wound to improve 4) patient to be extubated and diet to advance 5) f/u in 2-3 days Plan discussed with: Other SHAUN RAMOS MD July 07, 2024 22:56
[2024-07-08] VITALS (8 sets, daily range): BP systolic 145–166; BP diastolic 49–76; PULSE 65–95; RESP 18–20; TEMP 97.9–98.7; O2SAT 95–100
[2024-07-08] MEDS: cefTRIAXone 1GM/50ML D5W 50 ML IV SCH (09:00)
--- NOTE | 2024-07-08 11:43 | DVHPN2 ---
Progress Note - Dictate Date Seen: July 08, 2024 Medical Necessity Reason Pt with a Central, PICC or Fol: Yes Subjective no new symptoms vital signs Vital Sign Date Time Temp Pulse Resp B/P (MAP) Pulse Ox O2 Delivery O2 Flow Rate FiO2 07/08/24 09:00 98.7 68 20 146/50 (82) 95 98.7 07/07/24 20:00 Nasal Cannula* 5 40 Total Intake and Output 07/07/24 07/07/24 07/08/24 15:00 23:00 07:00 Intake Total 0 ml 0 ml Output Total 0 ml 0 ml Balance 0 ml 0 ml medications Current Medications Medications Dose Ordered Sig/Eric Route Start Time Stop Time Status Last Admin Dose Admin Ondansetron HCl 4 mg Q4HP PRN IV 06/11/24 02:00 07/05/24 20:16 4 MG Nitroglycerin 0.4 mg Q5MINP PRN SL 06/11/24 02:00 Acetaminophen 650 mg Q6HP PRN GT 06/11/24 23:45 Hold 06/12/24 02:48 650 MG Nicardipine HCl 250 ml @ 50 mls/hr Q5H IV 06/13/24 14:45 UNV Hydralazine HCl 10 mg Q6HPRN PRN IV 06/17/24 00:00 07/01/24 17:42 10 MG Dopamine HCl/ Dextrose 250 ml @ 15.544 mls/ hr Q16H5M IV 06/21/24 11:00 UNV Metoprolol Tartrate 50 mg BID PO 06/23/24 22:00 07/06/24 21:54 50 MG Amlodipine Besylate 10 mg DAILY PO 06/24/24 10:00 07/06/24 10:07 10 MG Clonidine HCl 0.2 mg Q7D TD 06/25/24 14:30 07/02/24 14:56 0.2 MG Famotidine 10 mg EOD PO 06/27/24 10:00 07/05/24 09:34 10 MG Heparin Sodium (Porcine) 2,300 units AMANDA PRN IV 06/26/24 15:30 Cancel Acetaminophen/ Hydrocodone Bitart 1 tab Q6HPRN PRN PO 06/26/24 22:30 07/06/24 21:55 1 TAB Morphine Sulfate 2 mg Q4HPRN PRN IV 06/27/24 00:45 07/07/24 15:29 2 MG Nifedipine 90 mg DAILY PO 06/28/24 10:00 07/06/24 10:08 90 MG Atorvastatin Calcium 40 mg HS PO 07/05/24 22:00 07/06/24 21:53 40 MG Acetaminophen 650 mg Q4HP PRN PO 07/07/24 14:15 Ceftriaxone Sodium 50 ml @ 100 mls/hr DAILY@09 IV 07/08/24 09:00 07/08/24 09:00 100 MLS/HR Vancomycin HCl 0 ml @ 0 mls/hr UD IV 07/07/24 17:00 objective Gen: On mechanical ventilation Lungs Diminished air entry at bases CV: RR, no pericardial rub Abdomen: soft, mildly distended, low BS Trace edema of legs laboratory and microbiology Laboratory Tests 07/08/24 06:26 07/07/24 06:57 Test 07/07/24 06:57 Range/Units Serum Glucose 99 74-106 mg/dL Assessment/Plan End-stage renal disease on HD Anemia of renal disease. Acute hypoxic Respiratory failure, extubated HTN Subacute stroke. T-spine fracture. Leukopenia Plan: s/p HD Sunday Next HD on Sunday HD to continue on MWF schedule Continue Metoprolol , amlodipine and nifedipine ID consult appreciated Continue IV antibiotics ANANTH post HD as needed, goal Hb: 10-11 g/dl pending discharge to SNF Dietary Evaluation Review Comments: 1) If patient remains NPO > 7 days, consider EN/TPN to meet at least 75% estimated needs 2) If GI route is preferred, consider Nepro @ 25 mL/hr goal rate as tolerated. EN regimen will provide 1080 kcals, 49g Pro, and 447 mL free H2O per 24 hrs. EN regimen will meet ~90% estimated daily energy needs and ~47% estimated daily protein needs 3) Initiate Nephro-Susan @ 1 tb qd 4) Advance to 60g [facility] renal standard diet when medically feasible, pending [facility] approval 5) Follow-up with nephrology, cardiology, and pulmonology 6) Continue to monitor I&O, labs, and skin integrity Expected Outcomes/Goals: 1) patient to receive nutrition support within 7 days of NPO status 2) labs to improve 3) wound to improve 4) patient to be extubated and diet to advance 5) f/u in 2-3 days Plan discussed with: Patient ILANA PATINO MD July 08, 2024 11:43
--- NOTE | 2024-07-08 12:02 | DVHPN2 ---
Progress Note - Dictate Date Seen: July 08, 2024 Medical Necessity Reason Pt with a Central, PICC or Fol: Yes Subjective No acute overnight events. She is more alert and awake today. Sitting in the chair. Appropriate. Asking when she can eat. Hospice evaluation is being done for her atherosclerotic heart disease and history of stroke with poor prognosis. Afebrile. vital signs Vital Sign Date Time Temp Pulse Resp B/P (MAP) Pulse Ox O2 Delivery O2 Flow Rate FiO2 07/08/24 09:00 98.7 68 20 146/50 (82) 95 98.7 07/07/24 20:00 Nasal Cannula* 5 40 Total Intake and Output 07/07/24 07/07/24 07/08/24 15:00 23:00 07:00 Intake Total 0 ml 0 ml Output Total 0 ml 0 ml Balance 0 ml 0 ml medications Current Medications Medications Dose Ordered Sig/Eric Route Start Time Stop Time Status Last Admin Dose Admin Ondansetron HCl 4 mg Q4HP PRN IV 06/11/24 02:00 07/05/24 20:16 4 MG Nitroglycerin 0.4 mg Q5MINP PRN SL 06/11/24 02:00 Acetaminophen 650 mg Q6HP PRN GT 06/11/24 23:45 Hold 06/12/24 02:48 650 MG Nicardipine HCl 250 ml @ 50 mls/hr Q5H IV 06/13/24 14:45 UNV Hydralazine HCl 10 mg Q6HPRN PRN IV 06/17/24 00:00 07/01/24 17:42 10 MG Dopamine HCl/ Dextrose 250 ml @ 15.544 mls/ hr Q16H5M IV 06/21/24 11:00 UNV Metoprolol Tartrate 50 mg BID PO 06/23/24 22:00 07/06/24 21:54 50 MG Amlodipine Besylate 10 mg DAILY PO 06/24/24 10:00 07/06/24 10:07 10 MG Clonidine HCl 0.2 mg Q7D TD 06/25/24 14:30 07/02/24 14:56 0.2 MG Famotidine 10 mg EOD PO 06/27/24 10:00 07/05/24 09:34 10 MG Heparin Sodium (Porcine) 2,300 units AMANDA PRN IV 06/26/24 15:30 Cancel Acetaminophen/ Hydrocodone Bitart 1 tab Q6HPRN PRN PO 06/26/24 22:30 07/06/24 21:55 1 TAB Morphine Sulfate 2 mg Q4HPRN PRN IV 06/27/24 00:45 07/07/24 15:29 2 MG Nifedipine 90 mg DAILY PO 06/28/24 10:00 07/06/24 10:08 90 MG Atorvastatin Calcium 40 mg HS PO 07/05/24 22:00 07/06/24 21:53 40 MG Acetaminophen 650 mg Q4HP PRN PO 07/07/24 14:15 Ceftriaxone Sodium 50 ml @ 100 mls/hr DAILY@09 IV 07/08/24 09:00 07/08/24 09:00 100 MLS/HR Vancomycin HCl 0 ml @ 0 mls/hr UD IV 07/07/24 17:00 objective Mentation has significantly improved today. Sitting in the chair. HEENT neck supple no JVD pupils equal round react to light. Heart regular rate and rhythm S1-S2 without murmurs. Lungs fair air movement chest tube will expansion no rales wheezes. Abdomen is soft nontender nondistended positive bowel sounds. Extremities no edema positive pulses. Neurologically no focal deficits noted. Able to move all four extremities laboratory and microbiology Laboratory Tests 07/08/24 06:26 07/07/24 06:57 Test 07/07/24 06:57 Range/Units Serum Glucose 99 74-106 mg/dL Assessment/Plan 1. Acute hypoxic respiratory failure resolved 2. 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 Hypertensive emergency with the end-organ involvement 5. End-stage renal disease on hemodialysis received hemodialysis on06/14 6. Coronary artery disease Hemoglobin is stable. No evidence of active bleeding. Afebrile. Advised the nurse once again to get a peripheral line and remove the central line as soon as possible. Continue hemodialysis. Continue current antibiotics. Further clinical management per clinical course. We will start her on pureed diet with thin liquids today Dietary Evaluation Review Comments: 1) If patient remains NPO > 7 days, consider EN/TPN to meet at least 75% estimated needs 2) If GI route is preferred, consider Nepro @ 25 mL/hr goal rate as tolerated. EN regimen will provide 1080 kcals, 49g Pro, and 447 mL free H2O per 24 hrs. EN regimen will meet ~90% estimated daily energy needs and ~47% estimated daily protein needs 3) Initiate Nephro-Susan @ 1 tb qd 4) Advance to 60g [facility] renal standard diet when medically feasible, pending [facility] approval 5) Follow-up with nephrology, cardiology, and pulmonology 6) Continue to monitor I&O, labs, and skin integrity Expected Outcomes/Goals: 1) patient to receive nutrition support within 7 days of NPO status 2) labs to improve 3) wound to improve 4) patient to be extubated and diet to advance 5) f/u in 2-3 days Plan discussed with: Other BRIANNE CADE MD July 08, 2024 12:02
--- NOTE | 2024-07-08 19:46 | DVHPN2 ---
Progress Note - Dictate Date Seen: July 08, 2024 Medical Necessity Reason Pt with a Central, PICC or Fol: Yes vital signs Vital Sign Date Time Temp Pulse Resp B/P (MAP) Pulse Ox O2 Delivery O2 Flow Rate FiO2 07/08/24 17:52 88 20 155/71 07/08/24 16:41 98.3 96 98.3 07/08/24 08:00 Nasal Cannula* 4 36 Total Intake and Output 07/07/24 07/07/24 07/08/24 15:00 23:00 07:00 Intake Total 0 ml 0 ml Output Total 0 ml 0 ml Balance 0 ml 0 ml medications Current Medications Medications Dose Ordered Sig/Erci Route Start Time Stop Time Status Last Admin Dose Admin Ondansetron HCl 4 mg Q4HP PRN IV 06/11/24 02:00 07/05/24 20:16 4 MG Nitroglycerin 0.4 mg Q5MINP PRN SL 06/11/24 02:00 Acetaminophen 650 mg Q6HP PRN GT 06/11/24 23:45 Hold 06/12/24 02:48 650 MG Nicardipine HCl 250 ml @ 50 mls/hr Q5H IV 06/13/24 14:45 UNV Hydralazine HCl 10 mg Q6HPRN PRN IV 06/17/24 00:00 07/08/24 16:16 10 MG Dopamine HCl/ Dextrose 250 ml @ 15.544 mls/ hr Q16H5M IV 06/21/24 11:00 UNV Metoprolol Tartrate 50 mg BID PO 06/23/24 22:00 07/06/24 21:54 50 MG Amlodipine Besylate 10 mg DAILY PO 06/24/24 10:00 07/06/24 10:07 10 MG Clonidine HCl 0.2 mg Q7D TD 06/25/24 14:30 07/02/24 14:56 0.2 MG Famotidine 10 mg EOD PO 06/27/24 10:00 07/05/24 09:34 10 MG Heparin Sodium (Porcine) 2,300 units AMANDA PRN IV 06/26/24 15:30 Cancel Acetaminophen/ Hydrocodone Bitart 1 tab Q6HPRN PRN PO 06/26/24 22:30 07/06/24 21:55 1 TAB Morphine Sulfate 2 mg Q4HPRN PRN IV 06/27/24 00:45 07/08/24 17:22 2 MG Nifedipine 90 mg DAILY PO 06/28/24 10:00 07/06/24 10:08 90 MG Atorvastatin Calcium 40 mg HS PO 07/05/24 22:00 07/06/24 21:53 40 MG Acetaminophen 650 mg Q4HP PRN PO 07/07/24 14:15 Ceftriaxone Sodium 50 ml @ 100 mls/hr DAILY@09 IV 07/08/24 09:00 07/08/24 09:00 100 MLS/HR Vancomycin HCl 0 ml @ 0 mls/hr UD IV 07/07/24 17:00 laboratory and microbiology Laboratory Tests 07/08/24 06:26 07/07/24 06:57 Test 07/07/24 06:57 Range/Units Serum Glucose 99 74-106 mg/dL Assessment/Plan Impression: Acute hypoxic respiratory failure Altered mental status Acute CVA Acute encephalopathy ESRD on hemodialysis Patient seen and examined Events: S/p extubation Low oxygen requirements On 4 liters nasal cannula No acute events Case discussed with Dr. Glover Prognosis very poor S/p HD Labs and imaging reviewed Plan: Supplemental oxygen Titrate FIO2 to keep O2 saturation above 90%. Incentive spirometry Monitor renal function HD as per nephrology Management deferred Monitor electrolytes Supplement as necessary nutrition/glycemic control Case discussed with Dr. Glover Prognosis very poor We recommend hospice DVT prophylaxis Dietary Evaluation Review Comments: 1) If patient remains NPO > 7 days, consider EN/TPN to meet at least 75% estimated needs 2) If GI route is preferred, consider Nepro @ 25 mL/hr goal rate as tolerated. EN regimen will provide 1080 kcals, 49g Pro, and 447 mL free H2O per 24 hrs. EN regimen will meet ~90% estimated daily energy needs and ~47% estimated daily protein needs 3) Initiate Nephro-Susan @ 1 tb qd 4) Advance to 60g [facility] renal standard diet when medically feasible, pending [facility] approval 5) Follow-up with nephrology, cardiology, and pulmonology 6) Continue to monitor I&O, labs, and skin integrity Expected Outcomes/Goals: 1) patient to receive nutrition support within 7 days of NPO status 2) labs to improve 3) wound to improve 4) patient to be extubated and diet to advance 5) f/u in 2-3 days Plan discussed with: Patient MECHE STEWARD MD July 08, 2024 19:46
--- NOTE | 2024-07-08 21:41 | DVHPN2 ---
Progress Note - Dictate Date Seen: July 08, 2024 Medical Necessity Reason Pt with a Central, PICC or Fol: Yes Subjective Patient was seen and evaluated in follow up. Patient is on 4 LPM NC. Hospice evaluation is being done for her atherosclerotic heart disease and history of stroke with poor prognosis. 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 Telemetry reviewed. vital signs Vital Sign Date Time Temp Pulse Resp B/P (MAP) Pulse Ox O2 Delivery O2 Flow Rate FiO2 07/08/24 20:43 98.4 82 20 158/69 (98) 100 98.4 07/08/24 08:00 Nasal Cannula* 4 36 Total Intake and Output 07/07/24 07/07/24 07/08/24 15:00 23:00 07:00 Intake Total 0 ml 0 ml Output Total 0 ml 0 ml Balance 0 ml 0 ml medications Current Medications Medications Dose Ordered Sig/Eric Route Start Time Stop Time Status Last Admin Dose Admin Ondansetron HCl 4 mg Q4HP PRN IV 06/11/24 02:00 07/05/24 20:16 4 MG Nitroglycerin 0.4 mg Q5MINP PRN SL 06/11/24 02:00 Acetaminophen 650 mg Q6HP PRN GT 06/11/24 23:45 Hold 06/12/24 02:48 650 MG Nicardipine HCl 250 ml @ 50 mls/hr Q5H IV 06/13/24 14:45 UNV Hydralazine HCl 10 mg Q6HPRN PRN IV 06/17/24 00:00 07/08/24 16:16 10 MG Dopamine HCl/ Dextrose 250 ml @ 15.544 mls/ hr Q16H5M IV 06/21/24 11:00 UNV Metoprolol Tartrate 50 mg BID PO 06/23/24 22:00 07/06/24 21:54 50 MG Amlodipine Besylate 10 mg DAILY PO 06/24/24 10:00 07/06/24 10:07 10 MG Clonidine HCl 0.2 mg Q7D TD 06/25/24 14:30 07/02/24 14:56 0.2 MG Famotidine 10 mg EOD PO 06/27/24 10:00 07/05/24 09:34 10 MG Heparin Sodium (Porcine) 2,300 units AMANDA PRN IV 06/26/24 15:30 Cancel Acetaminophen/ Hydrocodone Bitart 1 tab Q6HPRN PRN PO 06/26/24 22:30 07/06/24 21:55 1 TAB Morphine Sulfate 2 mg Q4HPRN PRN IV 06/27/24 00:45 07/08/24 17:22 2 MG Nifedipine 90 mg DAILY PO 06/28/24 10:00 07/06/24 10:08 90 MG Atorvastatin Calcium 40 mg HS PO 07/05/24 22:00 07/06/24 21:53 40 MG Acetaminophen 650 mg Q4HP PRN PO 07/07/24 14:15 Ceftriaxone Sodium 50 ml @ 100 mls/hr DAILY@09 IV 07/08/24 09:00 07/08/24 09:00 100 MLS/HR Vancomycin HCl 0 ml @ 0 mls/hr UD IV 07/07/24 17:00 objective GENERAL: Alert and oriented x 2. No acute distress. EYES: PERRL, EOMI. Anicteric. HENT: Moist mucous membranes. LUNGS: Decreased breath sounds. CARDIOVASCULAR: Regular rate and rhythm. ABDOMEN: Soft, nontender and nondistended. EXTREMITIES: No edema. NEUROLOGIC: No focal neurological deficits. SKIN: Warm, dry. laboratory and microbiology Laboratory Tests 07/08/24 06:26 07/07/24 06:57 Test 07/07/24 06:57 Range/Units Serum Glucose 99 74-106 mg/dL Problem List Acute CVA. Hypertensive emergency. Questionable coronary artery disease. Moderate pericardial effusion. Acute hypoxic respiratory failure. End-stage renal disease on hemodialysis. History of T12 compression fracture. Assessment/Plan Continued all current supportive medical care. Morphine and [place] for pain management. Amlodipine, Clonidine, Nifedipine. IV antibiotics as ordered. IV Hydralazine for SBP >160. Metoprolol. Additional plan as per the hospital course. Dietary Evaluation Review Comments: 1) If patient remains NPO > 7 days, consider EN/TPN to meet at least 75% estimated needs 2) If GI route is preferred, consider Nepro @ 25 mL/hr goal rate as tolerated. EN regimen will provide 1080 kcals, 49g Pro, and 447 mL free H2O per 24 hrs. EN regimen will meet ~90% estimated daily energy needs and ~47% estimated daily protein needs 3) Initiate Nephro-Susan @ 1 tb qd 4) Advance to 60g [facility] renal standard diet when medically feasible, pending [employer] approval 5) Follow-up with nephrology, cardiology, and pulmonology 6) Continue to monitor I&O, labs, and skin integrity Expected Outcomes/Goals: 1) patient to receive nutrition support within 7 days of NPO status 2) labs to improve 3) wound to improve 4) patient to be extubated and diet to advance 5) f/u in 2-3 days Plan discussed with: Patient SHAUN RAMOS MD July 08, 2024 21:41
[2024-07-09 01:00] VITALS: BP 139/53; PULSE 84; RESP 20; TEMP 98.4; O2SAT 100
[2024-07-09 05:00] VITALS: BP 159/38; PULSE 80; RESP 20; TEMP 98.2; O2SAT 98
[2024-07-09] MEDS ORDERED: SODIUM CHL 0.9% 1000 ML BAG XX ONE (07:00)
[2024-07-09 08:00] VITALS: PULSE 74; PULSE 87; RESP 20; O2SAT 95
[2024-07-09 09:00] VITALS: BP 163/87; PULSE 89; RESP 18; TEMP 97.5; O2SAT 94
[2024-07-09] MEDS ORDERED: CEFD300C2 PO (11:03)
--- NOTE | 2024-07-09 11:06 | DVHDS2 ---
Discharge Summary Date of Admission Jun 11, 2024 at 01:54 Date of Discharge: July 09, 2024 Labs/Diagnostic Data: Laboratory Results Test 07/09/24 05:00 07/08/24 06:26 07/07/24 06:57 07/06/24 12:00 Random Vancomycin Level 21.2 ug/mL (5-10) Creatinine 4.37 mg/dL (0.550-1.02) Glomerular Filtration Rate Calc 11 mL/min (>90) White Blood Count 2.8 10^3/uL (4.4-10.8) Red Blood Count 2.59 10^6/uL (4.0-5.20) Hemoglobin 7.8 g/dL (12.2-16.2) Hematocrit 25.4 % (36.0-46.0) Mean Corpuscular Volume 97.9 fL (80.0-100.0) Mean Corpuscular Hemoglobin 29.9 pg (28.0-32.0) Mean Corpuscular Hemoglobin Concent 30.5 g/dL (32.0-36.0) Red Cell Distribution Width 20.0 % (11.8-14.3) Platelet Count 110 10^3/uL (140-450) Mean Platelet Volume 8.4 fL (6.9-10.8) Neutrophils (%) (Auto) 67.0 % (37.0-80.0) Lymphocytes (%) (Auto) 22.1 % (10.0-50.0) Monocytes (%) (Auto) 8.9 % (0.0-12.0) Eosinophils (%) (Auto) 1.2 % (0.0-7.0) Basophils (%) (Auto) 0.8 % (0.0-2.0) Neutrophils # (Auto) 1.9 10 ^3/uL (1.6-8.6) Lymphocytes # (Auto) 0.6 10 ^3/uL (0.4-5.4) Monocytes # (Auto) 0.3 10 ^3/uL (0-1.3) Eosinophils # (Auto) 0 10 ^3/uL (0-0.8) Basophils # (Auto) 0 10 ^3/uL (0-0.2) Nucleated Red Blood Cells 0.4 % Sodium Level 139 mmol/L (136-145) Potassium Level 4.4 mmol/L (3.5-5.1) Chloride Level 94 mmol/L (98-107) Carbon Dioxide Level 30 mmol/L (20-31) Anion Gap 15 (5-15) Blood Urea Nitrogen 47 mg/dL (9-23) BUN/Creatinine Ratio 7.5 (10.0-20.0) Serum Glucose 99 mg/dL (74-106) Calcium Level 11.1 mg/dL (8.7-10.4) Platelet Estimate Decreased Anisocytosis (manual) Slight Test 06/30/24 17:05 06/30/24 03:05 06/28/24 18:01 06/28/24 03:20 POC Glucose 114 mg/dl (70-106) Total Bilirubin 0.5 mg/dL (0.2-1.0) Aspartate Amino Transferase (AST) 13 U/L (13-40) Alanine Aminotransferase (ALT) 11 U/L (7-40) Alkaline Phosphatase 84 U/L (46-116) Total Protein 5.5 g/dL (5.7-8.2) Albumin 3.4 g/dL (3.2-4.8) Blood Gas Specimen Type Arterial Blood Gas Sample Site Right radial Blood Gas Patient Temperature 37.0 Arterial Blood Date Drawn [id number] Arterial Blood pH 7.443 (7.350-7.450) Arterial Blood Partial Pressure CO2 42.4 mmHg (32.0-45.0) Arterial Blood Partial Pressure O2 75.9 mmHg (83.0-108.0) Arterial Blood HCO3 28.3 mmol/L (21.0-28.0) Arterial Blood Oxygen Saturation 94.4 % (94.0-98.0) Arterial Blood Base Excess 3.9 mmol/L (-2.0-3.0) Arterial Blood Oxyhemoglobin 93.7 % (94.0-98.0) Arterial Blood Carboxyhemoglobin 0.3 % (0.5-1.5) Arterial Blood Methemoglobin 0.4 % (0.0-1.5) Blayne Test Yes Blood Gas Total Hemoglobin 9.80 g/dL (12.0-16.0) Blood Gas Modality Oxymizer FiO2 % 40.0 Differential Total Cells Counted 100.0 (100) Neutrophils % (Manual) 82 (37.0-80.0) Band Neutrophils % (Manual) 1 Lymphocytes % (Manual) 9 (10.0-50.0) Monocytes % (Manual) 7 (0-12) Eosinophils % (Manual) 0 (0-7) Basophils % (Manual) 0 (0.0-2.0) Metamyelocytes % (manual) 0 Myelocytes % (Manual) 0 Promyelocytes % (Manual) 0 Blast Cells % (Manual) 1 Reactive Lymphocytes 0 Smudge Cells 1 /100 WBC Test 06/27/24 03:20 06/27/24 02:15 06/25/24 20:20 06/25/24 14:55 Iron Level 127 ug/dL (50-170) Total Iron Binding Capacity 158 ug/dL (250-425) Percent Iron Saturation 80.4 % (15-50) Ferritin 847.7 ng/mL (10-291) Blood Gas Set Respiration Rate 12.0 Blood Gas EPAP 8 Blood Gas IPAP 16 Specimen Drawn By Blood Gas Notified Time [id number] Blood Gas Tidal Volume 450.0 Blood Gas PEEP or CPAP 5.0 Test 06/23/24 03:35 06/21/24 15:39 06/17/24 15:50 06/14/24 12:04 Magnesium Level 2.0 mg/dL (1.6-2.6) Ammonia < 10 umol/L (11-32) Vitamin B12 Level 1216 pg/mL (211-911) Folic Acid 17.30 ng/mL (>5.38) Hepatitis B Surface Antigen Negative (Negative) Test 06/11/24 05:05 06/11/24 04:08 06/11/24 03:00 06/10/24 23:30 Large Platelets Few Hemoglobin A1c 4.3 % A1C (<5.7) Triglycerides Level 63 mg/dL (< 150) Cholesterol Level 106 mg/dL (< 200) LDL Cholesterol 47 mg/dL (< 100) HDL Cholesterol 40 mg/dL (40-59) Blood Gas Spontaneous Rate 18 Urine Color Light-yellow (Yellow) Urine Clarity Turbid (Clear) Urine pH 8.0 (5.0-9.0) Urine Specific [place] 1.008 (1.001-1.035) Urine Protein 3+ (Negative) Urine Ketones Negative (Negative) Urine Blood Negative /uL (Negative) Urine Nitrite Negative (Negative) Urine Bilirubin Negative (Negative) Urine Urobilinogen Normal mg/dL (Negative) Urine Leukocyte Esterase 1+ /uL (Negative) Urine RBC 10 /hpf (0 - 4) Urine Microscopic WBC 41 /HPF (0-5) Urine Squamous Epithelial Cells Mod /hpf (<5) Urine Bacteria None seen /hpf (None Seen) Urine Glucose 2+ mg/dL (Normal) Urine Opiates Screen Neg (NEGATIVE) Urine Fentanyl Screen Neg (NEGATIVE) Urine Barbiturates Screen Neg (NEGATIVE) Urine Phencyclidine Screen Neg (NEGATIVE) Urine Amphetamines Screen Neg (NEGATIVE) Urine Benzodiazepines Screen Neg (NEGATIVE) Urine Cocaine Screen Neg (NEGATIVE) Urine Cannabinoids Screen Neg (NEGATIVE) Troponin I High Sensitivity 18 ng/L (</=34) Test 06/10/24 23:02 06/10/24 22:36 Lactic Acid Level 0.7 mmol/L (0.4-2.0) Plasma/Serum Blood Alcohol < 3.0 mg/dL (<10) B-Type Natriuretic Peptide 1515.73 pg/mL (0-100) Other Laboratory Tests 07/08/24 06:26 07/07/24 06:57 Brief Hx & Hospital Course: Information in this HPI is limited due to the patient's critical condition. Acquired from ER physician and EHR. 63-year-old female with past medical history of ESRD on HD, hypertension, falls, T12 compression fracture was sent in from an assisted living facility with initial complaints of back pain. On arrival to the emergency department patient was found to be altered. Patient was not following commands. CT of the head was ordered per the emergency department which demonstrated subacute frontal lobes stroke. CXR demonstrated fluid overload. During my evaluation at ER bed 17 patient was not arousable and her tongue was swollen and kept rolling back into her throat. After discussing these findings with the ER physician, the decision was made to intubate the patient for airway protection. Patient admitted for further evaluation and treatment. She is admitted and noted to have a acute CVA. Patient continued to get hemodialysis. Patient intubated subsequently extubated. However patient remained intermittently confused for a prolonged period of time. Patient required sitter for prolonged period of time. Eventually patient's symptoms have resolved. She is tolerating oral medications and oral diet. Participating with physical therapy. She is close to back to baseline normal status. She knows her name and that she is in the hospital. She is not totally clear about her medical diagnosis and condition and workup she had done in the hospital. Patient's infectious workup with a cultures have been negative. Patient did have a spike of fever therefore she is empirically treated with antibiotic. Overall given the patient's clinically stable it is felt she can be safely discharged. However given her acute stroke with the encephalopathy with a atherosclerotic heart disease it end-stage renal disease on dialysis as well as malignant hypertension it is felt her overall prognosis remains poor and she is at high-risk for recurrent strokes therefore felt appropriate for hospice. Therefore hospice evaluation is done and felt she could be safely placed at a boarding care with the hospice and to continue hemodialysis. Patient is made aware of hospice and role of hospice for her. 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 Operations or Procedures EXAM: Two-dimensional and M-mode echocardiogram with Doppler and color Doppler. Blood Pressure: 192/67 mmHg INDICATION post cva RISK FACTORS Obesity: Height: 5'2, Weight: 211 DIMENSIONS LVDd 4.2 (3.8-5.7cm) LA (2D) 4.9 (1.9-4.0cm) Aortic Root 2.7 (2.0- 3.7cm) LVDs 2.7 (2.5-4.0cm) LA (MM) (1.9-4.0cm) Aortic Cusp Exc 1.5 (1.5- 2.0cm) EF (%) 60.0 (55-70%) Rt. Atrium 3.5 (1.9-4.0cm) Asc. Aorta cm IVSd 1.5 (0.7-1.1cm) RV (D) (1.8-2.4cm) PWd 1.0 (0.7-1.1cm) Mitral Valve Mitral Mitral Stenosis E wave 1.15m/s MV Mean GR. mmHg A wave 1.13m/s MV Peak GR. 97mmHg E/A ratio 1.0 2D MVA cm2 DECEL Time 237ms PRESS 1/2 Time ms Aortic Valve Aortic Valve Aortic Stenosis V1 1.35m/s AO Mean GR. 9mmHg V2 1.97m/s AO Peak GR. 16mmHg LVOT Diameter 2.1 (1.8-2.4cm) Doppler GLADYS 2.37cm2 Pulmonic Valve V2 1.38m/s Tricuspid Valve TR Velocity 2.69m/s RVSP 38mmHg Other Information Quality : Technically Limited Rhythm : Conclusion LVEF is normal 50-55% Rv function normal Moderate pericardial effusion with no evidence of tamponade Large left pleural effusion SIGNED BY: KAYLEY FRITZ MD SIGNED DATE/TIME: 06/11/24 3089 Condition at Discharge: Stable Final Diagnosis/Problems List acute cva, ESRD on HD, Malignant HTN, Metabolic Encephalopathy Discharge Disposition: Hospice - Home Discharge Instruct/Medications Diet: Consistent carbohydrate, Cardiac 2g Na,low cholest Diet comment: REnal diet Activity: No Restrictions, As Tolerated Activity comment: with assistance Follow Up/Referral: with [facility] [place] 3xweek. Medications: All home medications per discharge list New Medications: Cefdinir (Cefdinir) 300 Mg Cap 1 CAP PO BID, #10 CAP Continued Medications: Aspirin (Aspirin Low Dose) 81 Mg Tab 1 TAB PO DAILY for 30 Days, #30 Atorvastatin Calcium (Atorvastatin Calcium) 40 Mg Tab 1 TAB PO DAILY for 30 Days, #30 B-Complex W/ C & Folic Acid (Kimi-Susan Rx) Tab 1 TAB PO DAILY for 90 Days, #90 Carvedilol (Carvedilol) 25 Mg Tab 1 TAB PO BID for 30 Days, #60 Clopidogrel Bisulfate (Clopidogrel) 75 Mg Tab 1 TAB PO DAILY for 30 Days, #30 Furosemide (Furosemide) 40 Mg Tab 1 TAB PO BID for 30 Days, #60 Gabapentin (Gabapentin) 100 Mg Cap 1 CAP PO TID for 30 Days, #90 Hydralazine Hcl (Hydralazine Hcl) 100 Mg Tab 1 TAB PO TID for 30 Days, #90 Nifedipine (Nifedipine Er) 90 Mg Tab 1 TAB PO DAILY for 30 Days, #30 Ondansetron Odt 4MG Tab (Zofran Po) 4 Mg Tb 1 TAB PO BID for 90 Days, #180 Discontinued Medications: Baclofen (Baclofen) 10 Mg Tab 1 TAB PO DAILY for 30 Days, #30 Losartan Potassium (Losartan Potassium) 100 Mg Tab 1 TAB PO DAILY for 30 Days, #30 Discharge Statement: "Patient was advised to return to the ER or call 911 if any headaches, dizziness, shortness of breath, chest pain, abdominal pain, bleeding, fevers, or worsening of medical condition. Patient was counseled about treatment plan, medications, possible side effects, patientverbalized understanding. All questions were answered to the best of my ability. This discharge took greater then 30 minutes in planning, reviewing documentation, counseling the patient, and discussing with other team members." ASSESSMENT ASSESSMENT Assessment acute cva, ESRD on HD, Malignant HTN, Metabolic Encephalopathy BRIANNE CADE MD July 09, 2024 11:06
--- NOTE | 2024-07-09 12:22 | DVHPN2 ---
Progress Note - Dictate Date Seen: July 09, 2024 Medical Necessity Reason Pt with a Central, PICC or Fol: Yes vital signs Vital Sign Date Time Temp Pulse Resp B/P (MAP) Pulse Ox O2 Delivery O2 Flow Rate FiO2 07/09/24 09:01 163/57 07/09/24 08:58 89 07/09/24 08:00 20 95 Nasal Cannula* 4 36 07/09/24 05:00 98.2 98.2 Total Intake and Output 07/08/24 07/08/24 07/09/24 15:00 23:00 07:00 Intake Total 50 ml 890 ml 500 ml Output Total 0 ml Balance 50 ml 890 ml 500 ml medications Current Medications Medications Dose Ordered Sig/Eric Route Start Time Stop Time Status Last Admin Dose Admin Ondansetron HCl 4 mg Q4HP PRN IV 06/11/24 02:00 07/05/24 20:16 4 MG Nitroglycerin 0.4 mg Q5MINP PRN SL 06/11/24 02:00 Acetaminophen 650 mg Q6HP PRN GT 06/11/24 23:45 Hold 06/12/24 02:48 650 MG Nicardipine HCl 250 ml @ 50 mls/hr Q5H IV 06/13/24 14:45 UNV Hydralazine HCl 10 mg Q6HPRN PRN IV 06/17/24 00:00 07/08/24 16:16 10 MG Dopamine HCl/ Dextrose 250 ml @ 15.544 mls/ hr Q16H5M IV 06/21/24 11:00 UNV Metoprolol Tartrate 50 mg BID PO 06/23/24 22:00 07/09/24 08:58 50 MG Amlodipine Besylate 10 mg DAILY PO 06/24/24 10:00 07/09/24 09:01 10 MG Clonidine HCl 0.2 mg Q7D TD 06/25/24 14:30 07/02/24 14:56 0.2 MG Famotidine 10 mg EOD PO 06/27/24 10:00 07/09/24 08:58 10 MG Heparin Sodium (Porcine) 2,300 units AMANDA PRN IV 06/26/24 15:30 Cancel Acetaminophen/ Hydrocodone Bitart 1 tab Q6HPRN PRN PO 06/26/24 22:30 07/09/24 09:19 1 TAB Morphine Sulfate 2 mg Q4HPRN PRN IV 06/27/24 00:45 07/09/24 06:43 2 MG Nifedipine 90 mg DAILY PO 06/28/24 10:00 07/09/24 09:00 90 MG Atorvastatin Calcium 40 mg HS PO 07/05/24 22:00 07/08/24 21:42 40 MG Acetaminophen 650 mg Q4HP PRN PO 07/07/24 14:15 Ceftriaxone Sodium 50 ml @ 100 mls/hr DAILY@09 IV 07/08/24 09:00 07/09/24 08:54 100 MLS/HR Vancomycin HCl 0 ml @ 0 mls/hr UD IV 07/07/24 17:00 laboratory and microbiology Laboratory Tests 07/08/24 06:26 07/07/24 06:57 Test 07/07/24 06:57 Range/Units Serum Glucose 99 74-106 mg/dL Assessment/Plan Impression: Acute hypoxic respiratory failure Altered mental status Acute CVA Acute encephalopathy ESRD on hemodialysis Patient seen and examined Events: S/p extubation Low oxygen requirements On 4 liters nasal cannula No acute events S/p HD Labs and imaging reviewed Plan: Supplemental oxygen Titrate FIO2 to keep O2 saturation above 90%. Incentive spirometry Monitor renal function HD as per nephrology Management deferred Monitor electrolytes Supplement as necessary nutrition/glycemic control Case discussed with Dr. Glover Prognosis very poor We recommend hospice DVT prophylaxis Dietary Evaluation Review Comments: 1) If patient remains NPO > 7 days, consider EN/TPN to meet at least 75% estimated needs 2) If GI route is preferred, consider Nepro @ 25 mL/hr goal rate as tolerated. EN regimen will provide 1080 kcals, 49g Pro, and 447 mL free H2O per 24 hrs. EN regimen will meet ~90% estimated daily energy needs and ~47% estimated daily protein needs 3) Initiate Nephro-Susan @ 1 tb qd 4) Advance to 60g CCHO renal standard diet when medically feasible, pending [employer] approval 5) Follow-up with nephrology, cardiology, and pulmonology 6) Continue to monitor I&O, labs, and skin integrity Expected Outcomes/Goals: 1) patient to receive nutrition support within 7 days of NPO status 2) labs to improve 3) wound to improve 4) patient to be extubated and diet to advance 5) f/u in 2-3 days Plan discussed with: Other (rn) MECHE STEWARD MD July 09, 2024 12:22
[2024-07-09 13:00] VITALS: BP 188/85; PULSE 74; RESP 22; TEMP 97.5; O2SAT 94
[2024-07-09 15:48] VITALS: BP 169/100; PULSE 89; RESP 20
--- NOTE | 2024-07-09 16:13 | DVHPN2 ---
Progress Note - Dictate Date Seen: July 09, 2024 Medical Necessity Reason Pt with a Central, PICC or Fol: Yes Subjective No new complaints vital signs Vital Sign Date Time Temp Pulse Resp B/P (MAP) Pulse Ox O2 Delivery O2 Flow Rate FiO2 07/09/24 15:48 89 20 169/100 07/09/24 13:00 97.5 94 97.5 07/09/24 08:00 Nasal Cannula* 4 36 Total Intake and Output 07/08/24 07/08/24 07/09/24 15:00 23:00 07:00 Intake Total 50 ml 890 ml 500 ml Output Total 0 ml Balance 50 ml 890 ml 500 ml medications Current Medications Medications Dose Ordered Sig/Eric Route Start Time Stop Time Status Last Admin Dose Admin Ondansetron HCl 4 mg Q4HP PRN IV 06/11/24 02:00 07/05/24 20:16 4 MG Nitroglycerin 0.4 mg Q5MINP PRN SL 06/11/24 02:00 Acetaminophen 650 mg Q6HP PRN GT 06/11/24 23:45 Hold 06/12/24 02:48 650 MG Nicardipine HCl 250 ml @ 50 mls/hr Q5H IV 06/13/24 14:45 UNV Hydralazine HCl 10 mg Q6HPRN PRN IV 06/17/24 00:00 07/09/24 13:21 10 MG Dopamine HCl/ Dextrose 250 ml @ 15.544 mls/ hr Q16H5M IV 06/21/24 11:00 UNV Metoprolol Tartrate 50 mg BID PO 06/23/24 22:00 07/09/24 08:58 50 MG Amlodipine Besylate 10 mg DAILY PO 06/24/24 10:00 07/09/24 09:01 10 MG Clonidine HCl 0.2 mg Q7D TD 06/25/24 14:30 07/02/24 14:56 0.2 MG Famotidine 10 mg EOD PO 06/27/24 10:00 07/09/24 08:58 10 MG Heparin Sodium (Porcine) 2,300 units AMANDA PRN IV 06/26/24 15:30 Cancel Acetaminophen/ Hydrocodone Bitart 1 tab Q6HPRN PRN PO 06/26/24 22:30 07/09/24 09:19 1 TAB Morphine Sulfate 2 mg Q4HPRN PRN IV 06/27/24 00:45 07/09/24 15:18 2 MG Nifedipine 90 mg DAILY PO 06/28/24 10:00 07/09/24 09:00 90 MG Atorvastatin Calcium 40 mg HS PO 07/05/24 22:00 07/08/24 21:42 40 MG Acetaminophen 650 mg Q4HP PRN PO 07/07/24 14:15 Ceftriaxone Sodium 50 ml @ 100 mls/hr DAILY@09 IV 07/08/24 09:00 07/09/24 08:54 100 MLS/HR Vancomycin HCl 0 ml @ 0 mls/hr UD IV 07/07/24 17:00 objective Alert Disoriented Lungs Diminished air entry at bases CV:: RR, no pericardial rub Abdomen: soft, mildly distended, low BS No edema of legs laboratory and microbiology Laboratory Tests 07/08/24 06:26 07/07/24 06:57 Test 07/07/24 06:57 Range/Units Serum Glucose 99 74-106 mg/dL Problem List End-stage renal disease on HD Anemia of renal disease. Pneumonia Acute hypoxic Respiratory failure, s/p extubation Subacute stroke. T-spine fracture Encephalopathy Plan: Patient is going on hospice but wants to continue outpatient HD Overoll prognosis is guarded Stable from nephrology standpoint Preparing for transfer to SNF on hospice care Dietary Evaluation Review Comments: 1) If patient remains NPO > 7 days, consider EN/TPN to meet at least 75% estimated needs 2) If GI route is preferred, consider Nepro @ 25 mL/hr goal rate as tolerated. EN regimen will provide 1080 kcals, 49g Pro, and 447 mL free H2O per 24 hrs. EN regimen will meet ~90% estimated daily energy needs and ~47% estimated daily protein needs 3) Initiate Nephro-Susan @ 1 tb qd 4) Advance to 60g CCHO renal standard diet when medically feasible, pending [facility] approval 5) Follow-up with nephrology, cardiology, and pulmonology 6) Continue to monitor I&O, labs, and skin integrity Expected Outcomes/Goals: 1) patient to receive nutrition support within 7 days of NPO status 2) labs to improve 3) wound to improve 4) patient to be extubated and diet to advance 5) f/u in 2-3 days Plan discussed with: STEFANIE Fierro MD July 09, 2024 16:13
--- NOTE | 2024-07-09 20:47 | DVHPN2 ---
Progress Note - Dictate Date Seen: July 09, 2024 Medical Necessity Reason Pt with a Central, PICC or Fol: Yes Subjective Patient was seen and evaluated in follow up. Patient has no new complaints at this time. Patient denies any cardiac symptoms. Patient is cardiac stable for discharge. Telemetry reviewed. vital signs Vital Sign Date Time Temp Pulse Resp B/P (MAP) Pulse Ox O2 Delivery O2 Flow Rate FiO2 07/09/24 09:01 163/57 07/09/24 08:58 89 07/09/24 08:00 20 95 Nasal Cannula* 4 36 07/09/24 05:00 98.2 98.2 Total Intake and Output 07/08/24 07/08/24 07/09/24 15:00 23:00 07:00 Intake Total 50 ml 890 ml 500 ml Output Total 0 ml Balance 50 ml 890 ml 500 ml medications Current Medications Medications Dose Ordered Sig/Eric Route Start Time Stop Time Status Last Admin Dose Admin Ondansetron HCl 4 mg Q4HP PRN IV 06/11/24 02:00 07/05/24 20:16 4 MG Nitroglycerin 0.4 mg Q5MINP PRN SL 06/11/24 02:00 Acetaminophen 650 mg Q6HP PRN GT 06/11/24 23:45 Hold 06/12/24 02:48 650 MG Nicardipine HCl 250 ml @ 50 mls/hr Q5H IV 06/13/24 14:45 UNV Hydralazine HCl 10 mg Q6HPRN PRN IV 06/17/24 00:00 07/08/24 16:16 10 MG Dopamine HCl/ Dextrose 250 ml @ 15.544 mls/ hr Q16H5M IV 06/21/24 11:00 UNV Metoprolol Tartrate 50 mg BID PO 06/23/24 22:00 07/09/24 08:58 50 MG Amlodipine Besylate 10 mg DAILY PO 06/24/24 10:00 07/09/24 09:01 10 MG Clonidine HCl 0.2 mg Q7D TD 06/25/24 14:30 07/02/24 14:56 0.2 MG Famotidine 10 mg EOD PO 06/27/24 10:00 07/09/24 08:58 10 MG Heparin Sodium (Porcine) 2,300 units AMANDA PRN IV 06/26/24 15:30 Cancel Acetaminophen/ Hydrocodone Bitart 1 tab Q6HPRN PRN PO 06/26/24 22:30 07/09/24 09:19 1 TAB Morphine Sulfate 2 mg Q4HPRN PRN IV 06/27/24 00:45 07/09/24 06:43 2 MG Nifedipine 90 mg DAILY PO 06/28/24 10:00 07/09/24 09:00 90 MG Atorvastatin Calcium 40 mg HS PO 07/05/24 22:00 07/08/24 21:42 40 MG Acetaminophen 650 mg Q4HP PRN PO 07/07/24 14:15 Ceftriaxone Sodium 50 ml @ 100 mls/hr DAILY@09 IV 07/08/24 09:00 07/09/24 08:54 100 MLS/HR Vancomycin HCl 0 ml @ 0 mls/hr UD IV 07/07/24 17:00 objective GENERAL: Alert and oriented x 2. No acute distress. EYES: PERRL, EOMI. Anicteric. HENT: Moist mucous membranes. LUNGS: Decreased breath sounds. CARDIOVASCULAR: Regular rate and rhythm. ABDOMEN: Soft, nontender and nondistended. EXTREMITIES: No edema. NEUROLOGIC: No focal neurological deficits. SKIN: Warm, dry. laboratory and microbiology Laboratory Tests 07/08/24 06:26 07/07/24 06:57 Test 07/07/24 06:57 Range/Units Serum Glucose 99 74-106 mg/dL Problem List Acute CVA. Hypertensive emergency. Questionable coronary artery disease. Moderate pericardial effusion. Acute hypoxic respiratory failure. End-stage renal disease on hemodialysis. History of T12 compression fracture. Assessment/Plan Continued all current supportive medical care. Morphine and [place] for pain management. Amlodipine, Clonidine, Nifedipine. IV antibiotics as ordered. IV Hydralazine for SBP >160. Metoprolol. Additional plan as per the hospital course. Dietary Evaluation Review Comments: 1) If patient remains NPO > 7 days, consider EN/TPN to meet at least 75% estimated needs 2) If GI route is preferred, consider Nepro @ 25 mL/hr goal rate as tolerated. EN regimen will provide 1080 kcals, 49g Pro, and 447 mL free H2O per 24 hrs. EN regimen will meet ~90% estimated daily energy needs and ~47% estimated daily protein needs 3) Initiate Nephro-Susan @ 1 tb qd 4) Advance to 60g [facility] renal standard diet when medically feasible, pending [facility] approval 5) Follow-up with nephrology, cardiology, and pulmonology 6) Continue to monitor I&O, labs, and skin integrity Expected Outcomes/Goals: 1) patient to receive nutrition support within 7 days of NPO status 2) labs to improve 3) wound to improve 4) patient to be extubated and diet to advance 5) f/u in 2-3 days Plan discussed with: Patient SHAUN RAMOS MD July 09, 2024 13:19
[2024-07-09] MEDS ORDERED: EPOETIN ALFA-EPBX 10,000 UNIT/1ML VIAL SC ONE (21:00)
== END 2024-07-09 16:00 | disposition hospice, home (50) | DRG 207 ==
LOC: ER 21:42 → OVERFLOW 06-11 01:54 → ICU WEST 06-13 08:27 → TELE-CENTR 06-30 23:45 → TELE-WESTW 07-01 22:36
PROVIDERS: ADMIT Hospitalist; ATTEND Hospitalist
PROC: 5A1955Z Respiratory Ventilation, Greater than 96 Consecutive Hours (ICD-10-PCS; principal; 2024-06-10)
PROC: 0BH17EZ Insertion of Endotracheal Airway into Trachea, Via Natural or Artificial Opening (ICD-10-PCS; 2024-06-10)
PROC: 05HN33Z Insertion of Infusion Device into Left Internal Jugular Vein, Percutaneous Approach (ICD-10-PCS; 2024-06-10)
PROC: 5A1D70Z Performance of Urinary Filtration, Intermittent, Less than 6 Hours Per Day (ICD-10-PCS; 2024-06-14)
PROC: 5A1D70Z Performance of Urinary Filtration, Intermittent, Less than 6 Hours Per Day (ICD-10-PCS; 2024-06-17)
PROC: 5A1D70Z Performance of Urinary Filtration, Intermittent, Less than 6 Hours Per Day (ICD-10-PCS; 2024-06-19)
PROC: 5A1D70Z Performance of Urinary Filtration, Intermittent, Less than 6 Hours Per Day (ICD-10-PCS; 2024-06-21)
PROC: 5A1D70Z Performance of Urinary Filtration, Intermittent, Less than 6 Hours Per Day (ICD-10-PCS; 2024-06-24)
PROC: 5A09357 Assistance with Respiratory Ventilation, Less than 24 Consecutive Hours, Continuous Positive Airway Pressure (ICD-10-PCS; 2024-06-25)
PROC: 5A1D70Z Performance of Urinary Filtration, Intermittent, Less than 6 Hours Per Day (ICD-10-PCS; 2024-06-26)
PROC: 5A09357 Assistance with Respiratory Ventilation, Less than 24 Consecutive Hours, Continuous Positive Airway Pressure (ICD-10-PCS; 2024-06-26)
PROC: 5A1D70Z Performance of Urinary Filtration, Intermittent, Less than 6 Hours Per Day (ICD-10-PCS; 2024-06-27)
PROC: 5A09357 Assistance with Respiratory Ventilation, Less than 24 Consecutive Hours, Continuous Positive Airway Pressure (ICD-10-PCS; 2024-06-27)
PROC: 5A1D70Z Performance of Urinary Filtration, Intermittent, Less than 6 Hours Per Day (ICD-10-PCS; 2024-06-29)
PROC: 5A1D70Z Performance of Urinary Filtration, Intermittent, Less than 6 Hours Per Day (ICD-10-PCS; 2024-07-01)
PROC: 5A1D70Z Performance of Urinary Filtration, Intermittent, Less than 6 Hours Per Day (ICD-10-PCS; 2024-07-04)
PROC: 5A1D70Z Performance of Urinary Filtration, Intermittent, Less than 6 Hours Per Day (ICD-10-PCS; 2024-07-07)
DX: J96.01 Acute respiratory failure with hypoxia (principal); I63.9 Cerebral infarction, unspecified; G93.41 Metabolic encephalopathy; N18.6 End stage renal disease; J18.9 Pneumonia, unspecified organism; M46.26 Osteomyelitis of vertebra, lumbar region; I16.1 Hypertensive emergency; E87.1 Hypo-osmolality and hyponatremia; E87.3 Alkalosis; I31.39 Other pericardial effusion (noninflammatory); R57.9 Shock, unspecified; N39.0 Urinary tract infection, site not specified; D61.818 Other pancytopenia; R04.2 Hemoptysis; I13.2 Hypertensive heart and chronic kidney disease with heart failure and with stage 5 chronic kidney disease, or end stage renal disease; Z51.5 Encounter for palliative care; M46.46 Discitis, unspecified, lumbar region; I25.10 Atherosclerotic heart disease of native coronary artery without angina pectoris; E66.9 Obesity, unspecified; M48.061 Spinal stenosis, lumbar region without neurogenic claudication; E87.6 Hypokalemia; E87.70 Fluid overload, unspecified; F41.9 Anxiety disorder, unspecified; I50.9 Heart failure, unspecified; H57.02 Anisocoria; E16.2 Hypoglycemia, unspecified; E78.5 Hyperlipidemia, unspecified; F29 Unspecified psychosis not due to a substance or known physiological condition; D70.8 Other neutropenia; D63.1 Anemia in chronic kidney disease; Z68.33 Body mass index [BMI] 33.0-33.9, adult; Z86.73 Personal history of transient ischemic attack (TIA), and cerebral infarction without residual deficits; Z79.899 Other long term (current) drug therapy; Z79.82 Long term (current) use of aspirin; Z99.2 Dependence on renal dialysis; Z91.81 History of falling
CPT/HCPCS: 31500; 36415; 36556; 36600; 70450; 70496; 70498; 70551; 71045; 72128; 72131; 72148; 80048; 80053; 80061; 80202; 80307; 80320; 81001; 82140; 82565; 82607; 82728; 82746; 82805; 82962; 83036; 83540; 83550; 83605; 83735; 83880; 84484; 85007; 85014; 85025; 85027; 86850; 86900; 86901; 87040; 87070; 87081; 87205; 87340; 90935; 92610; 93005; 93306; 94002; 94003; 94640; 94660; 95819; 96374; 96375; 97110; 97116; 97163; 97530; 99151; 99152; 99291; G0378; J1100; J1447; J1642; J2405; J2470